=== PATIENT | female | born 1970 | race Caucasian/White ===

== ENCOUNTER 2023-02-17 13:05 | Outpatient (OUT) | payer OTHER, SELFPAY ==
--- NOTE | 2023-02-17 13:09 | XR_ITS ---
The [address] [address] Patient Name: KIRT REYNA MRN: [id number] date: 1970 Sex: F Assigned Patient Location: [facility] Current Patient Location: [facility] Accession/Order Number: [id number] Exam Date: 02/17/2023 13:17 Report Date: 02/17/2023 13:56 At the request of: NON-STAFF PHYSICIAN Procedure: XR DEXA axial skeleton EXAMINATION: XR DEXA axial skeleton HISTORY: Z13.820 COMPARISON: No relevant comparison available. TECHNIQUE: Dual-energy X-ray absorptiometry (DXA) was performed. FINDINGS: SPINE ANALYSIS: Average bone mineral density is 1.109 g/cm2. T-score (standard deviation relative to young adult mean): -0.8 . HIP ANALYSIS: Lowest bone mineral density is within the left femoral neck, 0.807 g/cm2. T-score (standard deviation relative to young adult mean): -1.7 . XR/XR DEXA axial skeleton IMPRESSION: World Tan Organization Classification: Osteopenia - Moderate Fracture Risk Electronically authenticated by: KRISTI ROOT Date: 02/17/2023 13:56
== END 2023-02-17 13:06 | disposition home or self-care (01) ==
LOC: RAD 13:05
PROVIDERS: PCP Family Medicine
DX: Z13.820 Encounter for screening for osteoporosis (principal); N95.1 Menopausal and female climacteric states; C20 Malignant neoplasm of rectum; M85.852 Other specified disorders of bone density and structure, left thigh
CPT/HCPCS: 77080

== ENCOUNTER 2023-03-25 16:46 | Outpatient (OUT) | payer OTHER, SELFPAY ==
[2023-03-25 17:15] LABS: Basophils Percent Auto 0.2 % (0.2-2.0); Eosinophils Absolute Auto 0.1 10^3/uL (0.0-0.7); Eosinophils Percent Auto 2.2 % (0.9-7.0); Hematocrit 37.3 % (36.0-48.0); Hemoglobin 12.6 g/dL (12.0-16.0); Immature Granulocytes Abs Auto 0.01 10^3/uL (0.00-0.03); Immature Granulocytes Pct Auto 0.2 % (0.0-0.5); Lymphocytes Absolute Auto 0.7 10^3/uL (1.2-3.8); Lymphocytes Percent Auto 15.7 % (20.5-60.0); Mean Corpuscular HGB Conc 33.8 g/dL (29.9-35.2); Mean Corpuscular Hemoglobin 29.8 pg (26.7-34.0); Mean Corpuscular Volume 88.2 fL (81.0-99.0); Mean Platelet Volume 9.8 fL (9.5-13.5); Monocytes Absolute Auto 0.4 10^3/uL (0.3-0.8); Monocytes Percent Auto 9.2 % (1.7-12.0); Neutrophils Absolute Auto 3.2 10^3/uL (1.4-6.5); Neutrophils Percent Auto 72.5 % (43.0-75.0); Platelet Count 230 10^3/uL (150-450); Red Blood Count 4.23 10^6/uL (4.20-5.40); Red Cell Distribution Width 13.1 % (11.0-15.0); White Blood Count 4.5 10^3/uL (4.0-11.0)
[2023-03-25 17:20] LABS: Estimated Average Glucose 111 mg/dL; Glycohemoglobin A1C 5.5 % (4.5-6.2)
[2023-03-25 17:42] LABS: Alanine Aminotransferase 27 U/L (14-59); Albumin Level 3.9 g/dL (3.4-5.0); Alkaline Phosphatase 95 U/L (46-116); Anion Gap 11.3; Aspartate Amino Transferase 14 U/L (15-37); Bilirubin Total 0.3 mg/dL (0.2-1.0); Calcium 8.9 mg/dL (8.5-10.1); Carbon Dioxide 29.5 mmol/L (21.0-32.0); Chloride 102 mmol/L (98-107); Chol HDL Ratio 3.4; Cholesterol 218 mg/dL (<=200); Estimated GFR (African America >60 (>=60); Estimated GFR (Non-African Ame >60 (>=60); Free T3 3.22 pg/mL (2.18-3.98); Glucose 114 mg/dL (74-106); HDL Cholesterol 65 mg/dL (40-60); Potassium 3.8 mmol/L (3.5-5.1); Sodium 139 mmol/L (136-145); Total Protein 7.9 g/dL (6.4-8.2); Triglycerides 212 mg/dL (<=150); VLDL CHOLESTEROL 42.4 mg/dL
[2023-03-27 12:12] LABS: Insulin 23.3 uIU/mL (2.6-24.9)
== END 2023-03-25 16:47 | disposition home or self-care (01) ==
PROVIDERS: PCP Family Medicine; Visit Provider Family Medicine
DX: Z00.00 Encounter for general adult medical examination without abnormal findings (principal); E55.9 Vitamin D deficiency, unspecified
CPT/HCPCS: 36415; 80053; 80061; 82306; 83036; 83525; 83540; 84436; 84443; 84481; 85025

== ENCOUNTER 2023-04-08 16:40 | Outpatient (OUT) | payer OTHER, SELFPAY ==
--- NOTE | 2023-04-08 16:43 | MM_ITS ---
Patient: KIRT REYNA Exam Date: 04/08/2023 : 1970 Gender:F Ordering : DR Valente Scales . Admission #: [id number] Family : DR KRISTI PEREZ Order #: [id number] CLICK HERE TO VIEW EXAM RADIOLOGY REPORT PROCEDURE: MM TOMOSYNTHESIS SCREENING BI COMPARISON: MG MAMM SCREEN CARL W CAD, 07/29/2017. INDICATIONS: Z12.31 Calculator Name NCI Breast Cancer Risk Assessment Tool 5 Year Breast Cancer Risk 1.30% Lifetime Breast Cancer Risk 9.30% Personal Breast Cancer No Personal Ovarian Cancer No Treatments None Family Cancers None LOCATION: [facility] BREAST COMPOSITION: Extremely dense, which lowers the sensitivity of mammography. FINDINGS: DIAGNOSTIC CATEGORY 0--INCOMPLETE: NEED ADDITIONAL IMAGING EVALUATION. The breasts are stable in size and overall fibroglandular configuration.Scattered benign-appearing calcifications are present. Scattered benign-appearing lymph nodes are present. RIGHT BREAST: No significant suspicious finding. Several well-circumscribed nodules are noted in the upper outer quadrant, difficult to see prior non tomographic images. Ultrasound follow-up recommended LEFT BREAST: New area of focal asymmetry upper outer quadrant with microcalcifications, posterior breast. Spot magnification and ultrasound follow-up recommended. RECOMMENDATIONS: ADDITIONAL MAMMOGRAPHIC VIEWS REQUIRED: LEFT BREAST - spot magnification ULTRASOUND: BILATERAL BREASTS PLEASE NOTE: A NORMAL MAMMOGRAM DOES NOT EXCLUDE THE POSSIBILITY OF BREAST CANCER. A CLINICALLY SUSPICIOUS PALPABLE LUMP SHOULD BE BIOPSIED. Dictated by: Edgar Machuca MD on 04/09/2023 at 13:01 Approved by: Edgar Machuca MD on 04/09/2023 at 13:05
== END 2023-04-08 16:41 | disposition home or self-care (01) ==
LOC: MAMMO 16:40
PROVIDERS: PCP Family Medicine; Visit Provider Family Medicine
DX: Z12.31 Encounter for screening mammogram for malignant neoplasm of breast (principal); R92.0 Mammographic microcalcification found on diagnostic imaging of breast
CPT/HCPCS: 77063; 77067

== ENCOUNTER 2023-04-30 08:21 | Outpatient (OUT) | payer OTHER, SELFPAY ==
--- NOTE | 2023-04-30 08:25 | MM_ITS ---
Patient: KIRT REYNA Exam Date: 04/30/2023 : 1970 Gender:F Ordering : DR Valente Scales . Admission #: [id number] Family : Order #: [id number] CLICK HERE TO VIEW EXAM RADIOLOGY REPORT PROCEDURE: MM DIAGNOSTIC MAMMO UNILAT LT, 04/30/2023, 08:36 US BREAST BI LIMITED, 04/30/2023, 08:56 COMPARISON: MM TOMOSYNTHESIS SCREENING BI, 04/08/2023. INDICATIONS: Abnormal Mammogram Bilateral Calculator Name NCI Breast Cancer Risk Assessment Tool 5 Year Breast Cancer Risk 1.30% Lifetime Breast Cancer Risk 9.30% Personal Breast Cancer No Personal Ovarian Cancer No Treatments None Family Cancers None LOCATION: [facility] BREAST COMPOSITION: Extremely dense, which lowers the sensitivity of mammography. FINDINGS: DIAGNOSTIC CATEGORY 3--PROBABLY BENIGN FINDING. THE FOLLOWING FINDING(S) HAS A HIGH PROBABILITY OF A BENIGN ETIOLOGY: Ultrasound of the right breast demonstrates 2 focal oval areas of hypoechogenicity without definitive color flow. At the 10 o'clock position is a 1.0 x 0.4 x 0.8 cm lesion. At the 10 o'clock position is a 2nd oval hypodense lesion measuring 2.7 x 2.7 x 2.8 mm. These correspond to the mammographic abnormalities and complex cysts are favored. As there are no prior comparisons short interval follow-up right diagnostic mammogram and ultrasound in 6 months is recommended Three spot magnification views of the left breast demonstrate compression of the density in the upper outer quadrant with geographic microcalcifications, nonspecific. No ultrasound abnormality. No further evaluation is recommended RECOMMENDATIONS: SHORT TERM FOLLOW-UP DIAGNOSTIC MAMMOGRAM RIGHT BREAST IN 6 MONTHS. SHORT TERM FOLLOW-UP ULTRASOUND RIGHT BREAST IN 6 MONTHS. PLEASE NOTE: A NORMAL MAMMOGRAM DOES NOT EXCLUDE THE POSSIBILITY OF BREAST CANCER. A CLINICALLY SUSPICIOUS PALPABLE LUMP SHOULD BE BIOPSIED. Dictated by: Edgar Machuca MD on 04/30/2023 at 09:27 Approved by: Edgar Machuca MD on 04/30/2023 at 09:30
== END 2023-04-30 08:22 | disposition home or self-care (01) ==
LOC: MAMMO 08:22
PROVIDERS: PCP Family Medicine; Visit Provider Family Medicine
DX: R92.8 Other abnormal and inconclusive findings on diagnostic imaging of breast (principal); N64.9 Disorder of breast, unspecified
CPT/HCPCS: 76642; 77065

== ENCOUNTER 2023-08-19 16:34 | Outpatient (OUT) | payer OTHER, SELFPAY ==
--- NOTE | 2023-08-19 17:00 | XR_ITS ---
The [address] [address] Patient Name: KIRT REYNA MRN: [id number] date: 1970 Sex: F Assigned Patient Location: [facility] Current Patient Location: Accession/Order Number: [id number] Exam Date: 08/19/2023 16:49 Report Date: 08/20/2023 09:17 At the request of: SONDRA LIU Procedure: XR wrist CARL min 3V EXAMINATION: XR wrist CARL min 3V HISTORY: Arthralgia M25.50 COMPARISON: No relevant comparison available. FINDINGS: RIGHT FINDINGS: BONES: No acute fracture or dislocation. Degenerative changes with joint space narrowing most significant first carpometacarpal joint SOFT TISSUES: Negative. No visible soft tissue swelling. OTHER: Negative. LEFT FINDINGS: BONES: No acute fracture or dislocation. Degenerative changes with joint space narrowing most significant first carpometacarpal joint SOFT TISSUES: Negative. No visible soft tissue swelling. OTHER: Negative. XR/XR wrist CARL min 3V IMPRESSION: Mild degenerative changes, no acute abnormality Electronically authenticated by: PHIL LIU Date: 08/20/2023 09:17
--- NOTE | 2023-08-19 17:00 | XR_ITS ---
The [place] [id number] Patient Name: KIRT REYNA MRN: [id number] date: 1970 Sex: F Assigned Patient Location: [facility] Current Patient Location: [facility] Accession/Order Number: [id number] Exam Date: 08/19/2023 16:49 Report Date: 08/20/2023 09:20 At the request of: SONDRA LIU Procedure: XR lumbar spine 2-3V EXAMINATION: XR lumbar spine 2-3V HISTORY: arthralgia M25.50 COMPARISON: No relevant comparison available. FINDINGS: BONES: 11 mm anterolisthesis of L5 in relation S1. No acute fracture. Mild degenerative spondylosis and facet osteoarthropathy DISC SPACES: Normal. No significant disc height narrowing, subluxation, or endplate abnormality. PARASPINOUS: Negative. No paraspinous abnormality is seen. OTHER: Negative. XR/XR lumbar spine 2-3V IMPRESSION: 11 mm anterolisthesis of L5 on S1 Electronically authenticated by: PHIL LIU Date: 08/20/2023 09:20
--- NOTE | 2023-08-19 17:00 | XR_ITS ---
The [address] [address] Patient Name: KIRT REYNA MRN: [id number] date: 1970 Sex: F Assigned Patient Location: [facility] Current Patient Location: [facility] Accession/Order Number: [id number] Exam Date: 08/19/2023 16:49 Report Date: 08/20/2023 09:22 At the request of: SONDRA LIU Procedure: XR hip CARL EXAMINATION: XR hip CARL HISTORY: arthralgia M25.50 COMPARISON: No relevant comparison available. FINDINGS: RIGHT FINDINGS: BONES: No acute fracture or dislocation. Minimal degenerative changes with marginal osteophyte formation SOFT TISSUES: Negative. No visible soft tissue swelling. OTHER: Negative. LEFT FINDINGS: BONES: No acute fracture or dislocation. Minimal degenerative changes with marginal osteophyte formation SOFT TISSUES: Negative. No visible soft tissue swelling. OTHER: Negative. XR/XR hip CARL IMPRESSION: RIGHT CONCLUSION: Minimal degenerative changes LEFT CONCLUSION: Minimal degenerative changes Electronically authenticated by: PHIL LIU Date: 08/20/2023 09:22
--- NOTE | 2023-08-19 17:00 | XR_ITS ---
The [address] [address] Patient Name: KIRT REYNA MRN: [id number] date: 1970 Sex: F Assigned Patient Location: [facility] Current Patient Location: [facility] Accession/Order Number: [id number] Exam Date: 08/19/2023 16:49 Report Date: 08/20/2023 09:19 At the request of: SONDRA LIU Procedure: XR clavicle BI PROCEDURE: XR clavicle BI COMPARISON: None. HISTORY: clavicale enlargement M89.319 FINDINGS: BONES:No fracture, acute abnormality, or significant arthropathy of the right or left clavicle. SOFT TISSUES:Negative. No visible soft tissue swelling. EFFUSION:None visible. OTHER: BB marker left cranial mid clavicle indicates a palpable mass. No corresponding abnormality on plain x-ray XR/XR clavicle BI IMPRESSION: No abnormality of the clavicles Electronically authenticated by: PHIL LIU Date: 08/20/2023 09:19
== END 2023-08-19 16:35 | disposition home or self-care (01) ==
LOC: RAD 16:36
PROVIDERS: PCP Family Medicine; Visit Provider Family Medicine
DX: M89.319 Hypertrophy of bone, unspecified shoulder (principal); M25.50 Pain in unspecified joint
CPT/HCPCS: 72100; 73000; 73110; 73522

== ENCOUNTER 2023-10-22 08:06 | Outpatient (OUT) | payer OTHER, SELFPAY ==
--- NOTE | 2023-10-22 | US_ITS ---
Patient Name: KIRT REYNA MR#: [id number] : 1970 Exam Date: 10/22/2023 Ordering Doctor: DR Valente Scales . RADIOLOGY REPORT PROCEDURE: MM TOMOSYNTHESIS DIAGNOSTIC BI, 10/22/2023, 07:13 US BREAST RT LIMITED, 10/22/2023, 08:29 COMPARISON: US BREAST BI LIMITED, 04/30/2023. MM TOMOSYNTHESIS SCREENING BI, 04/08/2023. MM DIAGNOSTIC MAMMO UNILAT LT, 04/30/2023. INDICATIONS: Diffuse Cystic Mastopathy Of Unspecified Breast N60.19 Calculator Name NCI Breast Cancer Risk Assessment Tool 5 Year Breast Cancer Risk 1.30% Lifetime Breast Cancer Risk 9.30% Personal Breast Cancer No Personal Ovarian Cancer No Treatments None Family Cancers None LOCATION: [facility] BREAST COMPOSITION: Extremely dense, which lowers the sensitivity of mammography. FINDINGS: DIAGNOSTIC CATEGORY 2--BENIGN FINDING. NO CHANGE FROM COMPARISON. Scattered benign-appearing nodules are present. Scattered benign-appearing calcifications are present. Scattered benign-appearing lymph nodes are present. RIGHT BREAST: No significant suspicious finding. LEFT BREAST: Stable nodules. Ultrasound demonstrates 2 unchanged oval areas of hypoechogenicity without color flow measuring 1.0 and 0.3 cm in size. Given the lack of change from the prior exam, I favor complex cysts. RECOMMENDATIONS: ROUTINE MAMMOGRAM AND CLINICAL EVALUATION IN 12 MONTHS. Active recommendations from prior exams: SHORT TERM FOLLOW-UP DIAGNOSTIC MAMMOGRAM RIGHT BREAST IN [#MONTHS] MONTHS. Due on 10/30/2023. SHORT TERM FOLLOW-UP ULTRASOUND RIGHT BREAST IN [#MONTHS] MONTHS. Due on 10/30/2023. PLEASE NOTE: A NORMAL MAMMOGRAM DOES NOT EXCLUDE THE POSSIBILITY OF BREAST CANCER. A CLINICALLY SUSPICIOUS PALPABLE LUMP SHOULD BE BIOPSIED. Dictated by: Edgar Machuca MD on 10/22/2023 at 08:47 Approved by: Edgar Machuca MD on 10/22/2023 at 08:51
--- NOTE | 2023-10-22 08:08 | MM_ITS ---
Patient Name: KIRT REYNA MR#: [id number] : 1970 Exam Date: 10/22/2023 Ordering Doctor: DR Valente Scales . RADIOLOGY REPORT PROCEDURE: MM TOMOSYNTHESIS DIAGNOSTIC BI, 10/22/2023, 07:13 US BREAST RT LIMITED, 10/22/2023, 08:29 COMPARISON: US BREAST BI LIMITED, 04/30/2023. MM TOMOSYNTHESIS SCREENING BI, 04/08/2023. MM DIAGNOSTIC MAMMO UNILAT LT, 04/30/2023. INDICATIONS: Diffuse Cystic Mastopathy Of Unspecified Breast N60.19 Calculator Name NCI Breast Cancer Risk Assessment Tool 5 Year Breast Cancer Risk 1.30% Lifetime Breast Cancer Risk 9.30% Personal Breast Cancer No Personal Ovarian Cancer No Treatments None Family Cancers None LOCATION: [facility] BREAST COMPOSITION: Extremely dense, which lowers the sensitivity of mammography. FINDINGS: DIAGNOSTIC CATEGORY 2--BENIGN FINDING. NO CHANGE FROM COMPARISON. Scattered benign-appearing nodules are present. Scattered benign-appearing calcifications are present. Scattered benign-appearing lymph nodes are present. RIGHT BREAST: No significant suspicious finding. LEFT BREAST: Stable nodules. Ultrasound demonstrates 2 unchanged oval areas of hypoechogenicity without color flow measuring 1.0 and 0.3 cm in size. Given the lack of change from the prior exam, I favor complex cysts. RECOMMENDATIONS: ROUTINE MAMMOGRAM AND CLINICAL EVALUATION IN 12 MONTHS. Active recommendations from prior exams: SHORT TERM FOLLOW-UP DIAGNOSTIC MAMMOGRAM RIGHT BREAST IN [#MONTHS] MONTHS. Due on 10/30/2023. SHORT TERM FOLLOW-UP ULTRASOUND RIGHT BREAST IN [#MONTHS] MONTHS. Due on 10/30/2023. PLEASE NOTE: A NORMAL MAMMOGRAM DOES NOT EXCLUDE THE POSSIBILITY OF BREAST CANCER. A CLINICALLY SUSPICIOUS PALPABLE LUMP SHOULD BE BIOPSIED. Dictated by: Edgar Machuca MD on 10/22/2023 at 08:47 Approved by: Edgar Machuca MD on 10/22/2023 at 08:51
== END 2023-10-22 08:07 | disposition home or self-care (01) ==
LOC: MAMMO 08:06
PROVIDERS: PCP Family Medicine; Visit Provider Family Medicine
DX: N60.19 Diffuse cystic mastopathy of unspecified breast (principal)
CPT/HCPCS: 76642; 77066; G0279

== ENCOUNTER 2024-01-06 19:29 | Outpatient (REF) | payer OTHER, SELFPAY ==
--- OUTSIDE RECORDS SUMMARY | 2024-01-06 19:35 | XMS_ITS | CCD ---
Author Organization [facility]ini[facility] Care Team Providers Care Ferry Hand Name Role Phone Sondra Liu Primary Care Physician Sondra Liu MD Primary Care Provider [phone] PHIL DOUGHERTY Referring Unavailable SONDRA LIU Primary Care Unavailable Paco Bonds MD Unavailable Kojo GRADER GREEN MEAT.LIVESTOCK BREEDER, Gerardo Unavailable Ventura RN, Leandra Unavailable [phone] Toribio Michaud MD Unavailable Sondra Liu MD Primary Care Provider [phone] Paco Bonds MD Unavailable [phone] Kojo [employer] ME[employer].LIVESTOCK BREEDER, Gerardo Unavailable Ventura PINTO, Leandra Unavailable [phone] Jaswant SERNA, Toribio Unavailable RODERICK, DR HAIDER Admitting Unavailable NILL, DR HAIDER Attending Unavailable NILL, DR HAIDER Consulting Unavailable HOY, DR AMARO Primary Care Unavailable LIVE UP Consulting Unavailable KATHY AGUILAR Consulting Unavailable NILL, DR HAIDER Attending Unavailable NILL, DR HAIDER Admitting Unavailable FARAZY, DR AMARO Primary Care Unavailable NILL, DR HAIDER Attending Unavailable NILL, DR HAIDER Admitting Unavailable NOE, DR AMARO Primary Care Unavailable NOE, DR AMARO Admitting Unavailable NOE, DR AMARO Primary Care Unavailable NOE, DR AMARO Attending Unavailable TORIBIO MICHAUD Admitting Unavailable TORIBIO MICHAUD Attending Unavailable DR SONDRA LIU Primary Care Unavailable NOE, DR AMARO Admitting Unavailable NOE, DR AMARO Primary Care Unavailable NOE, DR AMARO Consulting Unavailable NOE, DR AMARO Attending Unavailable NOE, DR AMARO Admitting Unavailable NOE, DR AMARO Primary Care Unavailable NOE, DR AMARO Consulting Unavailable HOY, DR AMARO Attending Unavailable WEST, DR PHIL Johnston Consulting Unavailable ZIEBER, DR KRISTI Cassidy Consulting Unavailable NILL, DR HAIDER Attending Unavailable NILL, DR HAIDER Admitting Unavailable NILL, DR HAIDER Consulting Unavailable NOE, DR AMARO Primary Care Unavailable Noe, Sondra Referring Unavailable NILL, Vitaly Cassidy Attending Unavailable NILL, Vitaly Cassidy Attending Unavailable NILL, Vitaly Cassidy Attending Unavailable HOY, SONDRA M Primary Care Unavailable JASWANT, TORIBIO Referring Unavailable Ventura RN, Leandra Unavailable [phone] JASWANT, TORIBIO Referring Unavailable HOY, SONDRA M Primary Care Unavailable JASWANT, TORIBIO Referring Unavailable HOY, SONDRA M Primary Care Unavailable Noe SERNA, Sondra Ken Primary Care Provider [phone] HOY, SONDRA M Primary Care Unavailable VAMSHI, PACO Attending Unavailable ABHYBRITNI, PACO Referring Unavailable JASWANT, TORIBIO Referring Unavailable HOY, SONDRA M Primary Care Unavailable PHIL DOUGHERTY Attending Unavailable HOY, SONDRA M Primary Care Unavailable PHIL DOUGHERTY Referring Unavailable HOY, SONDRA M Primary Care Unavailable ABHYPETERSONAR, PACO Attending Unavailable ABHYANKAR, PACO Referring Unavailable HOY, SONDRA M Primary Care Unavailable ABNOLAN, PACO Referring Unavailable HOY, SONDRA M Primary Care Unavailable PHIL DOUGHERTY Attending Unavailable HOY, SONDRA M Primary Care Unavailable JASWANT, TORIBIO Attending Unavailable HOY, SONDRA M Primary Care Unavailable PHIL DOUGHERTY Attending Unavailable HOY, SONDRA M Primary Care Unavailable PHIL DOUGHERTY Attending Unavailable HOY, SONDRA M Primary Care Unavailable Allergies Allergy Classification Reported Allergen(s) Allergy Type Date of Onset Reaction(s) Facility Penicillins (antibiotic) (1 source) Penicillin; Translations: [PENICILLIN G] Drug Allergy 4 [facility] Repository Sulfonamides (antibiotic) (1 source) Sulfonamides (Antibiotic); Translations: [SULFA (SULFONAMIDE ANTIBIOTICS)] Drug Allergy 4 [facility] Repository (2 sources) Amoxicillin; Translations: [amoxicillin] Drug Allergy [place] (disorder) [facility] [place] (2 sources) Sulfonamides (Antibiotic); Translations: [sulfa drugs] Drug allergy [facility] [place] (20 sources) Penicillin G; Translations: [PENICILLIN G] Drug Allergy 4 Unknown [facility] (20 sources) Sulfonamides (Antibiotic); Translations: [SULFA (SULFONAMIDE ANTIBIOTICS)] Drug Allergy 4 Unknown [facility] (2 sources) Penicillins Drug allergy (disorder) 3 [facility] Repository (2 sources) Sulfonamides (Antibiotic) Drug allergy (disorder) 3 [facility] Repository Medications Current Medications Medication Drug Class(es) Dates Sig (Normalized) Sig (Original) Acetaminophen / diphenhydrAMINE (20 sources) Histamine-1 Receptor Antagonist acetaminophen/diphen hydramine (TYLENOL PM EXTRA STRENGTH ORAL) Take 500 mg by mouth as needed. 0 Active Comment on above: Take 500 mg by mouth as needed. Calcium (9 sources) Phosphate Binder, Calcium CALCIUM ORAL Take by mouth once daily. 0 Active Comment on above: Take by mouth once d aily. cholecalciferol, vitamin D3, (VITAMIN D3 ORAL) (9 sources) cholecalciferol, vitamin D3, (VITAMIN D3 ORAL) Take by mouth once daily. 0 Active Comment on above: Take by mouth once d aily. fludrocortisone acetate 0.1 mg oral tablet (20 sources) Start: 03-05-2022 take 0.5 tablet by mouth twice daily fludrocortisone (FLORINEF) 0.1 mg tablet TAKE 0.5 TABLET BY MOUTH TWICE A DAY 0 03/05/2022 Active Start: 02-15-2022 take 0.05 mg by mout h twice daily fludrocortisone 0.1 mg Tab 0.05 mg = 0.5 tab(s), Oral, BID, Refills(s) 0 Start Date: 02/15/22 Status: Ordered Comment on above: TAKE 0.5 TABLET BY M OUTH TWICE A DAY hydrocortisone acetate 0.0055 mg/mg / lidocaine hydrochloride 0.028 mg/mg rectal gel (20 sources) Antiarrhythmic, Corticosteroid, Amide Local Anesthetic Start: 06-28-20 Lidocaine-Hydrocorti sone-Aloe 2.8-0.55 % gel Use 1 Applicator by RECTAL route twice daily as needed. 100 g 0 06/28/2022 Active Comment on above: Use 1 Applicator by RECTAL route twice daily as needed. Multi Vitamins oral tablet (1 source) Start: 02-21-20 take 1 tablet by mouth once daily Multi Vitamins oral tablet 1 tab(s), Oral, Daily, Refill(s) 0 Start Date: 02/20/22 Status: Ordered multivit-min/ferrous fumarate (MULTI VITAMIN ORAL) (9 sources) multivit-min/teresita ashli fumarate (MULTI VITAMIN ORAL) Take by mouth once daily. 0 Active Comment on above: Take by mouth once d aily. multivitamin tablet (20 sources) take 1 tablet by mouth once daily multivitamin tablet Take 1 tablet by mouth once daily. 0 Active Comment on above: Take 1 tablet by hans th once daily. ondansetron 8 mg oral tablet (20 sources) Serotonin-3 Receptor Antagonist Start: 05-23-20 take 1 tablet by mouth every eight hours as needed for nausea and vomiting ondansetron (ZOFRAN) 8 mg tablet TAKE 1 TABLET BY MOUTH EVERY 8 HOURS NEEDED FOR NAUSEA AND VOMITING 90 tablet 1 08/14/2022 Active Comment on above: Take 1 tablet by hans th every 8 hours as needed for nausea/vomiting. TAKE 1 TABLET BY HANS TH EVERY 8 HOURS NEEDED FOR NAUSEA AND VOMITING Completed/Discontinued Medications Medication Drug Class(es) Dates Sig (Normalized) Sig (Original) acetaminophen 325 mg / oxyCODONE hydrochloride 5 mg oral tablet (20 sources) Opioid Agonist Start: 06-27-2022 End: 10-28-2022 oxyCODONE-acetamin ophen (PERCOCET) 5-325 mg tablet Indications: Anal cancer (HCC) Take one tablet every six hours as needed for pain. May alternate with NSAIDs (Motrin, Alleve, etc). Take necessary precautions to avoid constipation. 30 tablet 0 06/27/2022 10/28/2022 Discontinued Comment on above: Take one tablet ever y six hours as needed for pain. May alternate with NSAIDs (Motrin, Alleve, etc). Take necessary precautions to avoid constipation. capecitabine 500 mg oral tablet (20 sources) Nucleoside Metabolic Inhibitor Start: 06-18-2022 End: 10-28-2022 take 2 tablets by mouth twice daily at mealtime capecitabine (XELODA) 500 mg tablet Indications: Anal cancer (HCC) Take 2 tablet by mouth , with food, twice daily only on days of radiation (M-F) each week 20 tablet 4 06/18/2022 10/28/2022 Discontinued Start: 05-16-2022 End: 06-18-2022 take 3 tablets by mouth twice daily capecitabine (XELODA) 500 mg tablet Indications: Anal cancer (HCC) Take 3 tablets (1,500 mg) by mouth twice daily. Only on days of radiation (M-F) each week 30 tablet 5 05/16/2022 06/18/2022 Discontinued Comment on above: Take 3 tablets (1,50 0 mg) by mouth twice daily. Only on days of radiation (M-F) each week Take 2 tablet by hans th , with food, twice daily only on days of radiation (M-F) each week diphenhydrAMINE hydrochloride 2.5 mg/ml oral solution (20 sources) Histamine-1 Receptor Antagonist Start: 06-24-20 End: 10-29-19 23 diphenhydrAMINE (BENADRYL) 12.5 mg/5 mL liquid diphenhydrAMINE 12.5 mg/5 mL lidocaine visc 2% MAALOX 200-200-20 mg/5 mL nystatin prednisoLONE 15 mg/5 mL oral liquid 1:1:1:1:1 (CPD) (20 sources) Start: 06-24-20 End: 10-29-19 23 take 5 mL by mouth every six hours as needed diphenhydrAMINE 12.5 mg/5 mL lidocaine visc 2% MAALOX 200-200-20 mg/5 mL nystatin prednisoLONE 15 mg/5 mL oral liquid 1:1:1:1:1 (CPD) Swish and swallow 5 mL by mouth every 6 hours as needed. 300 mL 1 06/24/2022 10/28/2022 Discontinued Start: 06-24-2022 take 5 mL by mouth e very six hours as needed diphenhydrAMINE 12.5 mg/5 mL lidocaine visc 2% MAALOX 200-200-20 mg/5 mL nystatin prednisoLONE 15 mg/5 mL oral liquid 1:1:1:1:1 (CPD) Swish and swallow 5 mL by mouth every 6 hours as needed. 300 mL 1 06/24/2022 Active Comment on above: Swish and swallow 5 mL by mouth every 6 hours as needed. enteric contrast (will be provided with radiology test) (20 sources) Start: 10-27-2023 End: 10-28-2023 enteric contrast (will be provided with radiology test) For CT ABD W IVCON order Administer, As Directed One Time Only, via Oral, Rectal, both Oral and Rectal, Enteric Tube, Stoma or Indwelling Catheter, Enteric Contrast as designated per enteric contrast guidelines 1 Each 0 10/27/2023 10/28/2023 Start: 10-27-2023 End: 10-28-2023 enteric contrast (will be pr ovided with radiology test) MRI RECTUM WO/W. Administer, As Directed One Time Only, via Oral, Rectal, both Oral and Rectal, Enteric Tube, Stoma or Indwelling Catheter, Enteric Contrast as designated per enteric contrast guidelines 1 Each 0 10/27/2023 10/28/2023 Start: 09-12-2023 End: 09-13-2023 enteric contrast (will be pr ovided with radiology test) MRI RECTUM WO/W. Administer, As Directed One Time Only, via Oral, Rectal, both Oral and Rectal, Enteric Tube, Stoma or Indwelling Catheter, Enteric Contrast as designated per enteric contrast guidelines 1 Each 0 09/12/2023 09/13/2023 Start: 11-05-2022 End: 11-06-2022 enteric contrast (will be pr ovided with radiology test) MRI RECTUM WO/W. Administer, As Directed One Time Only, via Oral, Rectal, both Oral and Rectal, Enteric Tube, Stoma or Indwelling Catheter, Enteric Contrast as designated per enteric contrast guidelines 1 Each 0 11/05/2022 11/06/2022 Active Start: 09-04-2022 End: 09-05-2022 enteric contrast (will be pr ovided with radiology test) MRI RECTUM WO/W. Administer, As Directed One Time Only, via Oral, Rectal, both Oral and Rectal, Enteric Tube, Stoma or Indwelling Catheter, Enteric Contrast as designated per enteric contrast guidelines 1 Each 0 09/04/2022 09/05/2022 Start: 07-17-2022 End: 07-18-2022 enteric contrast (will be pr ovided with radiology test) For CT CHESTABD/PEL W IVCON Routine order Administer, As Directed One Time Only, via Oral, Rectal, both Oral and Rectal, Enteric Tube, Stoma or Indwelling Catheter, Enteric Contrast as designated per enteric contrast guidelines 1 Each 0 07/17/2022 07/18/2022 Start: 07-17-2022 End: 07-18-2022 enteric contrast (will be pr ovided with radiology test) For CT CHESTABD/PEL W IVCON Routine order Administer, As Directed One Time Only, via Oral, Rectal, both Oral and Rectal, Enteric Tube, Stoma or Indwelling Catheter, Enteric Contrast as designated per enteric contrast guidelines 1 Each 0 07/17/2022 07/18/2022 Active Start: 05-02-2022 End: 06-25-2022 enteric contrast (will be pr ovided with radiology test) Indications: Anal cancer (HCC) MRI RECTUM WO/W. Administer, As Directed One Time Only, via Oral, Rectal, both Oral and Rectal, Enteric Tube, Stoma or Indwelling Catheter, Enteric Contrast as designated per enteric contrast guidelines 1 Each 0 05/02/2022 06/25/2022 Discontinued (Course of therapy completed) Start: 05-02-[address] (will be provided with radiology test) Indications: Anal cancer (HCC) MRI RECTUM WO/W. Administer, As Directed One Time Only, via Oral, Rectal, both Oral and Rectal, Enteric Tube, Stoma or Indwelling Catheter, Enteric Contrast as designated per enteric contrast guidelines 1 Each 0 05/02/2022 Active Start: 05-02-2022 End: 05-03-2022 enteric contrast (will be pr ovided with radiology test) Indications: Anal cancer (HCC) For CT Chest Abdomen W IVCON order Administer, As Directed One Time Only, via Oral, Rectal, both Oral and Rectal, Enteric Tube, Stoma or Indwelling Catheter, Enteric Contrast as designated per enteric contrast guidelines 1 Each 0 05/02/2022 05/03/2022 Active Comment on above: MRI RECTUM WO/W. Adm inister, As Directed One Time Only, via Oral, Rectal, both Oral and Rectal, Enteric Tube, Stoma or Indwelling Catheter, Enteric Contrast as designated per enteric contrast guidelines For CT Chest Abdomen W IVCON order Administer, As Directed One Time Only, via Oral, Rectal, both Oral and Rectal, Enteric Tube, Stoma or Indwelling Catheter, Enteric Contrast as designated per enteric contrast guidelines For CT CHESTABD/PEL W IVCON Routine order Administer, As Directed One Time Only, via Oral, Rectal, both Oral and Rectal, Enteric Tube, Stoma or Indwelling Catheter, Enteric Contrast as designated per enteric contrast guidelines iv contrast (will be provided with radiology test) (20 sources) Start: 10-27-2023 End: 10-28-2023 iv contrast (will be provided with radiology test) CT Chest W -Inject, intravenously, once for 1 dose.No IV access, insert saline lock prior to the beginning of sedation, infusion, injection of imaging exam. Discontinue saline lock post exam. If Pt. has a central line or IVAD, may access for administration according to line specific nursing protocol. Once exam is complete flush line and de-access according to line specific nursing protocol in the CT contrast administration guidelines link. 1 Each 0 10/27/2023 10/28/2023 Start: 10-27-2023 End: 10-28-2023 iv contrast (will be provide d with radiology test) CT ABD W -Inject, intravenously, once for 1 dose.No IV access, insert saline lock prior to the beginning of sedation, infusion, injection of imaging exam. Discontinue saline lock post exam. If Pt. has a central line or IVAD, may access for administration according to line specific nursing protocol. Once exam is complete flush line and de-access according to line specific nursing protocol in the CT contrast administration guidelines link. 1 Each 0 10/27/2023 10/28/2023 Start: 10-27-2023 End: 10-28-2023 iv contrast (will be provide d with radiology test) MRI Rectum Inject, intravenously, once for 1 dose. No IV access, insert saline lock prior to the beginning of sedation, infusion, injection of imaging exam. Discontinue saline lock post exam. If Pt has a central line or IVAD, may access for administration according to line specific nursing protocol. Once exam is complete flush line and de-access according to line specific nursing protocol in the MR contrast administration guidelines link. 1 Each 0 10/27/2023 10/28/2023 Start: 09-12-2023 End: 09-13-2023 iv contrast (will be provide d with radiology test) MRI ABD/PEL Inject, intravenously, once for 1 dose. No IV access, insert saline lock prior to the beginning of sedation, infusion, injection of imaging exam. Discontinue saline lock post exam. If Pt. has a central line or IVAD, may access for administration according to line specific nursing protocol. Once exam is complete flush line and de-access according to line specific nursing protocol in the MR contrast administration guidelines link. 1 Each 0 09/12/2023 09/13/2023 Start: 11-05-2022 End: 11-06-2022 iv contrast (will be provide d with radiology test) MRI Rectum Inject, intravenously, once for 1 dose. No IV access, insert saline lock prior to the beginning of sedation, infusion, injection of imaging exam. Discontinue saline lock post exam. If Pt has a central line or IVAD, may access for administration according to line specific nursing protocol. Once exam is complete flush line and de-access according to line specific nursing protocol in the MR contrast administration guidelines link. 1 Each 0 11/05/2022 11/06/2022 Active Start: 09-04-2022 End: 09-05-2022 iv contrast (will be provide d with radiology test) MRI Rectum Inject, intravenously, once for 1 dose. No IV access, insert saline lock prior to the beginning of sedation, infusion, injection of imaging exam. Discontinue saline lock post exam. If Pt has a central line or IVAD, may access for administration according to line specific nursing protocol. Once exam is complete flush line and de-access according to line specific nursing protocol in the MR contrast administration guidelines link. 1 Each 0 09/04/2022 09/05/2022 Start: 07-17-2022 End: 07-18-2022 iv contrast (will be provide d with radiology test) CT Chest ABD/PEL-Inject, intravenously, once for 1 dose.No IV access, insert saline lock prior to the beginning of sedation, infusion, injection of imaging exam. Discontinue saline lock post exam. If Pt. has a central line or IVAD, may access for administration according to line specific nursing protocol. Once exam is complete flush line and de-access according to line specific nursing protocol in the CT contrast administration guidelines link. 1 Each 0 07/17/2022 07/18/2022 Start: 07-17-2022 End: 07-18-2022 iv contrast (will be provide d with radiology test) CT Chest ABD/PEL-Inject, intravenously, once for 1 dose.No IV access, insert saline lock prior to the beginning of sedation, infusion, injection of imaging exam. Discontinue saline lock post exam. If Pt. has a central line or IVAD, may access for administration according to line specific nursing protocol. Once exam is complete flush line and de-access according to line specific nursing protocol in the CT contrast administration guidelines link. 1 Each 0 07/17/2022 07/18/2022 Active Start: 05-02-2022 End: 06-25-2022 iv contrast (will be provide d with radiology test) Indications: Anal cancer (HCC) MRI Rectum Inject, intravenously, once for 1 dose. No IV access, insert saline lock prior to the beginning of sedation, infusion, injection of imaging exam. Discontinue saline lock post exam. If Pt has a central line or IVAD, may access for administration according to line specific nursing protocol. Once exam is complete flush line and de-access according to line specific nursing protocol in the MR contrast administration guidelines link. 1 Each 0 05/02/2022 06/25/2022 Discontinued (Course of therapy completed) Start: 05-02-2022 iv contrast (w ill be provided with radiology test) Indications: Anal cancer (HCC) MRI Rectum Inject, intravenously, once for 1 dose. No IV access, insert saline lock prior to the beginning of sedation, infusion, injection of imaging exam. Discontinue saline lock post exam. If Pt has a central line or IVAD, may access for administration according to line specific nursing protocol. Once exam is complete flush line and de-access according to line specific nursing protocol in the MR contrast administration guidelines link. 1 Each 0 05/02/2022 Active Start: 05-02-2022 End: 05-03-2022 iv contrast (will be provide d with radiology test) Indications: Anal cancer (HCC) CT Chest Abdomen-Inject, intravenously, once for 1 dose.No IV access, insert saline lock prior to the beginning of sedation, infusion, injection of imaging exam. Discontinue saline lock post exam. If Pt. has a central line or IVAD, may access for administration according to line specific nursing protocol. Once exam is complete flush line and de-access according to line specific nursing protocol in the CT contrast administration guidelines link. 1 Each 0 05/02/2022 05/03/2022 Active Comment on above: MRI Rectum Inject, i ntravenously, once for 1 dose. No IV access, insert saline lock prior to the beginning of sedation, infusion, injection of imaging exam. Discontinue saline lock post exam. If Pt has a central line or IVAD, may access for administration according to line specific nursing protocol. Once exam is complete flush line and de-access according to line specific nursing protocol in the MR contrast administration guidelines link. CT Chest Abdomen-Inj ect, intravenously, once for 1 dose.No IV access, insert saline lock prior to the beginning of sedation, infusion, injection of imaging exam. Discontinue saline lock post exam. If Pt. has a central line or IVAD, may access for administration according to line specific nursing protocol. Once exam is complete flush line and de-access according to line specific nursing protocol in the CT contrast administration guidelines link. CT Chest ABD/PEL-Inj ect, intravenously, once for 1 dose.No IV access, insert saline lock prior to the beginning of sedation, infusion, injection of imaging exam. Discontinue saline lock post exam. If Pt. has a central line or IVAD, may access for administration according to line specific nursing protocol. Once exam is complete flush line and de-access according to line specific nursing protocol in the CT contrast administration guidelines link. MRI ABD/PEL Inject, intravenously, once for 1 dose. No IV access, insert saline lock prior to the beginning of sedation, infusion, injection of imaging exam. Discontinue saline lock post exam. If Pt. has a central line or IVAD, may access for administration according to line specific nursing protocol. Once exam is complete flush line and de-access according to line specific nursing protocol in the MR contrast administration guidelines link. lidocaine hydrochloride 0.02 mg/mg topical gel (20 sources) Antiarrhythmic, Amide Local Anesthetic Start: 022 End: 023 lidocaine (XYLOCAINE) 2 % jelly Apply 1-2 times a day to affected area as needed for pain/discomfort. Test in small unaffected area first for reaction. 30 mL 0 06/27/2022 10/28/2022 Discontinued Comment on above: Apply 1-2 times a da y to affected area as needed for pain/discomfort. Test in small unaffected area first for reaction. prochlorperazine 10 mg oral tablet (20 sources) Phenothiazine Start: 022 End: 023 take 1 tablet by mouth every six hours as needed prochlorperazine (COMPAZINE) 10 mg tablet Take 1 tablet by mouth every 6 hours as needed. 100 tablet 1 05/23/2022 10/28/2022 Discontinued Comment on above: Take 1 tablet by hans th every 6 hours as needed. 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-2023 Chronic Cardiac dysrhythmias (20 sources) Postural orthostatic tachycardia syndrome ; Translations: [POTS (postural orthostatic tachycardia syndrome)] Onset: 2 Chronic Conditions associated with dizziness or vertigo (20 sources) Vertigo; Translations: [Dizziness and giddiness] 08-23-2013 Episodic Esophageal disorders (2 sources) Gastroesophageal reflux disease; Translations: [Gastro-esophageal reflux disease without esophagitis] Onset: 2 02-15-2022 Chronic Gastrointestinal hemorrhage (6 sources) Hemorrhage of rectum and anus; Translations: [Hemorrhage of anus and rectum] Onset: 2 Episodic Menopausal disorders (1 source) Menopausal symptom; Translations: [Menopausal and female climacteric states] 02-10-2023 Chronic Other aftercare (2 sources) History of malignant neoplasm of anus; Translations: [Encounter for follow-up examination after completed treatment for malignant neoplasm] Episodic Other circulatory disease (1 source) Orthostatic hypotension 02-15-2022 Episodic Other gastrointestinal disorders (1 source) Dysphagia 02-15-2022 Episodic Other gastrointestinal disorders (1 source) Occult blood in stools 02-15-2022 Episodic Other gastrointestinal disorders (1 source) Rectal mass 02-20-2022 Episodic Other gastrointestinal disorders (1 source) Diarrhea; Translations: [Diarrhea, unspecified] 12-10-2023 Episodic Other gastrointestinal disorders (1 source) Diarrhea, unspecified; Translations: [Diarrhea, unspecified type] Onset: 4 Episodic Other inflammatory condition of skin (1 source) Pruritus ani; Translations: [Pruritus ani] 12-10-2023 Episodic Other inflammatory condition of skin (1 source) Pruritus ani; Translations: [Anal itching] Onset: 4 Episodic Other nervous system disorders (1 source) Other chronic pain; Translations: [OTHER CHRONIC PAIN] Onset: 2 Chronic Other nervous system disorders (1 source) Paresthesia 02-15-2022 Episodic Other nutritional; endocrine; and metabolic disorders (1 source) Overweight in adulthood with body mass index of 25 or more but less than 30 02-20-2022 Episodic Other screening for suspected conditions (not mental disorders or infectious disease) (2 sources) Patient encounter status; Translations: [Encounter for screening for osteoporosis] 02-10-2023 Episodic Ovarian cyst (1 source) Cyst of ovary 02-15-2022 Episodic Residual codes; unclassified (1 source) Peripheral edema 02-15-2022 Episodic Spondylosis; intervertebral disc disorders; other back problems (1 source) Low back pain 02-15-2022 Episodic Unclassified (1 source) OPENED IN ERROR Unclassified (1 source) POSTURAL ORTHOSTATIC TACHY SYN POTS; Translations: [POSTURAL ORTHOSTATIC TACHY SYN POTS] Onset: 2 Unclassified (1 source) LOW BACK PAIN, UNSPECIFIED; Translations: [LOW BACK PAIN, UNSPECIFIED] Onset: 2 Unclassified (1 source) CONTACT W/AND (SUSP) EXPOS COVID-19; Translations: [CONTACT W/AND (SUSP) EXPOS COVID-19] Onset: 2 Past or Other Problems Problem Classification Problem Date Documented Da te Episodic/Chronic Cancer of rectum and anus (1 source) Personal history of other malignant neoplasm of rectum, rectosigmoid junction, and anus; Translations: [Encounter for follow-up surveillance of anal cancer] Onset: 07-11-2023 Episodic Other aftercare (1 source) Encounter for follow-up examination after completed treatment for malignant neoplasm; Translations: [Encounter for follow-up surveillance of anal cancer] Onset: 07-11-2023 Episodic Residual codes; unclassified (4 sources) Localized edema; Translations: [LOCALIZED EDEMA] Onset: 12-28-2021 Episodic Results Test Name Value Interpretation Reference Range Facility OVon 12-12-2023 CNOV Office Visit ([facility] ) KIRT REYNA ([id number]) 1970 F Date Time Provider Department 12/12/23 2:00 PM PHIL DOUGHERTY [facility] During your visit today, we recorded the following information about you: Temperature Pulse Blood pressure Weight 97.3 degrees 81/minute 140/75 80.3 kg Height 1.702 m Phil Dougherty MD 12/12/2023 2:11 PM Signed COLORECTAL SURGERY December 12, 2023 Kirt Reyna 53 year old Chief Complaint: diarrhea, anal itching History of Present Illness: Kirt Reyna is a 53 year old female presents today for evaluation of diarrhea and anal itching. She has a h/o anal cancer and was last seen on 10/31/23 for surveillance. 53-year-old female the above-stated history. She had a few days where her stools were thin and had some itching but this has now resolved. She just wanted to get checked out to make sure everything was okay PAST MEDICAL HISTORY Diagnosis Date Hiatal hernia POTS (postural orthostatic tachycardia syndrome) POTS (postural orthostatic tachycardia syndrome) 05/27/2022 Vertigo 1970 PAST SURGICAL HISTORY Procedure Laterality Date DANDC, DIAG AND/OR THERAPEUTIC molar OVARIAN CYSTECTOMY UNI/BI Current Outpatient Medications Medication Sig Dispense Refill CALCIUM ORAL Take by mouth once daily. cholecalciferol, vitamin D3, (VITAMIN D3 ORAL) Take by mouth once daily. multivit-min/ferrous fumarate (MULTI VITAMIN ORAL) Take by mouth once daily. (Patient not taking: Reported on 10/27/2023) ondansetron (ZOFRAN) 8 mg tablet TAKE 1 TABLET BY MOUTH EVERY 8 HOURS NEEDED FOR NAUSEA AND VOMITING (Patient taking differently: As needed) 90 tablet 1 Lidocaine-Hydrocortis one-Aloe 2.8-0.55 % gel Use 1 Applicator by RECTAL route twice daily as needed. (Patient not taking: Reported on 07/11/2023) 100 g 0 multivitamin tablet Take 1 tablet by mouth once daily. acetaminophen/diphenh ydramine (TYLENOL PM EXTRA STRENGTH ORAL) Take 500 mg by mouth as needed. fludrocortisone (FLORINEF) 0.1 mg tablet TAKE 0.5 TABLET BY MOUTH TWICE A DAY No current facility-administered medications for this visit. ALLERGIES Allergen Reactions Penicillin G Unknown Sulfa (Sulfonamide * Unknown FAMILY HISTORY Problem Relation Age of Onset other (cysts [Other]) Mother other (parkinson [Other]) Father Diabetes Father Social History Tobacco Use Smoking status: Never Passive exposure: Never Smokeless tobacco: Never Vaping Use Vaping Use: Never used Substance Use Topics Alcohol use: No Drug use: No Physical Exam: BP 140/75 (BP Site: Right Arm, BP Position: Sitting) Pulse 81 Temp 36.3 ?C (97.3 ?F) Ht 170.2 cm (5' 7 ) Wt 80.3 kg (177 lb) SpO2 100% BMI 27.72 kg/m? General Appearance: Well appearing, alert, in no acute distress, well-hydrated, well nourished. Anorectal: External exam reveals no lesions. Digital rectal exam reveals no gross blood or masses Bankruptcy Legal Assistant present: Yes, Padmini Garcia Anoscopy: The patient was placed in chest-knee position. After digital exam with a lubricated finger, the scope was easily inserted. Posterior scar noted. Otherwise normal mucosa was noted. Anoscopy completed. Assessment Assessment and Plan: Kirt Reyna is a 53 year old female with history of anal cancer and a few days of thin stools that have resolved. Everything looks fine and she is back to her baseline. She will continue with her surveillance plan and return to see me in April as previously scheduled Medical Decision Making: Data Reviewed: Tests AND Documents Reviewed/ordered: Review of prior notes from myself Review of Imaging: CT Abdomen, MRI Pelvis, CT Chest Review of Labs: CBC, BMP, LFT, Albumin Review of Procedures / Tests: Colonoscopy I have independently interpreted: CT Abdomen, MRI Pelvis, CT Chest Risk of morbidity, mortality and/or complications of treatment plan: high Phil Dougherty MD Colorectal Surgery Allergies As of Date: 12/12/2023 Noted Allergy Reaction PENICILLIN G 08/23/2013 16 - Unknown SULFA (SULFONAMIDE ANTIBIOTICS) 08/23/2013 16 - Unknown Date Reviewed: 12/12/2023 Reviewed by: Phil Dougherty MD - Fully Assessed Reason for Visit: Established Patient [175] Cmt: presents today for evaluation of diarrhea and anal itching. Primary Visit Diagnosis:Anal itching [L29.0] Other Visit Diagnosis:Diarrhea, unspecified type [R19.7] Prescriptions as of 12/12/2023 - CALCIUM ORAL Take by mouth once daily. - cholecalciferol, vitamin D3, (VITAMIN D3 ORAL) Take by mouth once daily. - multivit-min/ferrous fumarate (MULTI VITAMIN ORAL) Take by mouth once daily. - ondansetron (ZOFRAN) 8 mg tablet TAKE 1 TABLET BY MOUTH EVERY 8 HOURS NEEDED FOR NAUSEA AND VOMITING - Lidocaine-Hydrocortis one-Aloe 2.8-0.55 % gel Use 1 Applicator by RECTAL route twice daily as needed. - multivitamin tablet Take 1 tablet by hans (more content not included)... Normal [facility] CNOVon 10-31-2023 CNOV Office Visit ([facility] ) KIRT REYNA ([id number]) 1970 F Date Time Provider Department 10/31/23 4:00 PM PHIL DOUGHERTY [facility] During your visit today, we recorded the following information about you: Temperature Pulse Blood pressure 97.1 degrees 90/minute 143/68 Phil Dougherty MD 10/31/2023 5:32 PM Signed COLORECTAL SURGERY October 31, 2023 Kirt Reyna 53 year old Chief Complaint: anal cancer surveillance History of Present Illness: Kirt Reyna is a 53 year old female presents today for anal cancer surveillance. Last seen 07/11/23. CT chest 10/01/23 1. Stable subcentimeter pulmonary nodules which are likely benign. 2. No significant thoracic adenopathy. MRI abdomen 09/29/23 No metastatic disease in the abdomen. 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 No metastatic disease in the pelvis. Feels great. No pain. Tolerating diet with good bowel function. No bleeding PAST MEDICAL HISTORY Diagnosis Date Hiatal hernia POTS (postural orthostatic tachycardia syndrome) POTS (postural orthostatic tachycardia syndrome) 05/27/2022 Vertigo 1970 PAST SURGICAL HISTORY Procedure Laterality Date DANDC, DIAG AND/OR THERAPEUTIC molar OVARIAN CYSTECTOMY UNI/BI Current Outpatient Medications Medication Sig Dispense Refill CALCIUM ORAL Take by mouth once daily. cholecalciferol, vitamin D3, (VITAMIN D3 ORAL) Take by mouth once daily. multivit-min/ferrous fumarate (MULTI VITAMIN ORAL) Take by mouth once daily. ondansetron (ZOFRAN) 8 mg tablet TAKE 1 TABLET BY MOUTH EVERY 8 HOURS NEEDED FOR NAUSEA AND VOMITING 90 tablet 1 Lidocaine-Hydrocortis one-Aloe 2.8-0.55 % gel Use 1 Applicator by RECTAL route twice daily as needed. (Patient not taking: Reported on 07/11/2023) 100 g 0 multivitamin tablet Take 1 tablet by mouth once daily. acetaminophen/diphenh ydramine (TYLENOL PM EXTRA STRENGTH ORAL) Take 500 mg by mouth as needed. fludrocortisone (FLORINEF) 0.1 mg tablet TAKE 0.5 TABLET BY MOUTH TWICE A DAY No current facility-administered medications for this visit. ALLERGIES Allergen Reactions Penicillin G Unknown Sulfa (Sulfonamide * Unknown FAMILY HISTORY Problem Relation Age of Onset other (cysts [Other]) Mother other (parkinson [Other]) Father Diabetes Father Social History Tobacco Use Smoking status: Never Passive exposure: Never Smokeless tobacco: Never Vaping Use Vaping Use: Never used Substance Use Topics Alcohol use: No Drug use: No Physical Exam: BP 143/68 Pulse 90 Temp 36.2 ?C (97.1 ?F) SpO2 100% General Appearance: Well appearing, alert, in no acute distress, well-hydrated, well nourished. Abdomen: No inguinal lymphadenopathy Anorectal: External exam reveals no lesions. Digital rectal exam reveals no gross blood or masses Bankruptcy Legal Assistant present: Yes, Padmini Garcia Anoscopy: The patient was placed in chest-knee position. After digital exam with a lubricated finger, the scope was easily inserted. Posterior anal canal scar noted. Otherwise normal mucosa was noted. Anoscopy completed. Assessment Assessment and Plan: Kirt Reyna is a 53 year old female with anal cancer status post chemoradiation without any evidence of disease recurrence. She will return to see me in 6 months for another inguinal lymph node exam and surveillance anoscopy Medical Decision Making: Data Reviewed: Tests AND Documents Reviewed/ordered: Review of prior notes from myself Review of Pathology Review of Imaging: CT Abdomen, CT Pelvis, MRI Pelvis Review of Labs: CBC, BMP, LFT, Albumin Review of Procedures / Tests: Colonoscopy I have independently interpreted: CT Abdomen, CT Pelvis Risk of morbidity, mortality and/or complications of treatment plan: high Phil Dougherty MD Colorectal Surgery [facility]admini Garcia, [facility] 10/31/2023 4:13 PM Signed What is the reason for your visit today? F/u, anal cancer surveillance Who is your referring physician? Are you having poor oral intake? NO Have you had unintentional weight loss of 15 lbs/7 Kg in the last 3-6 months? NO Bowels: regular Wound: Temperature: No Drains: No Allergies As of Date: 10/31/2023 Noted Allergy Reaction PENICILLIN G 08/23/2013 16 - Unknown SULFA (SULFONAMIDE ANTIBIOTICS) 08/23/2013 16 - Unknown Date Reviewed: 10/31/2023 Reviewed by: Phil Dougherty MD - Fully Assessed Reason for Visit: Follow Up [171] Cmt: Anal cancer surveillance Primary Visit Diagnosis:Encounter for follow-up surveillance of anal cancer [Z08, Z85.048] Prescriptions as of 10/31/2023 - CALCIUM ORAL Take by mouth once daily. - cholecalciferol, vitamin D3, (VITAMIN D3 ORAL) Take by mouth once daily. - multivit-min/ferrous fumarate (MULTI VITAMIN ORAL) Take by mouth once daily. - ondansetron (ZOFRAN) 8 mg tablet TAKE 1 TABLET BY MOUTH EVERY 8 HOURS NEEDED FOR (more content not included)... Normal [facility] CBC W Auto Differential pane l (Bld)on 10-27-2023 Basophils (Bld) [#/Vol] 10*3/uL Normal <0.11 [facility] Comment on above: Order Comment: Speci men Type: BLOOD SPECIMENOrdering Facility: [facility] Address: [address] [place] [address] Performed By: #### 5 7021-8 ####[facility] [id number] [place] [address] Basophils/100 WBC (Bld) 0.2 % Normal [facility] Comment on above: Order Comment: Speci men Type: BLOOD SPECIMENOrdering Facility: [facility] Address: [address] [place] [address] Performed By: #### 5 7021-8 ####[facility] [id number] [place] [address] Differential cell count method Nom (Bld) Auto Normal [facility] Comment on above: Order Comment: Speci men Type: BLOOD SPECIMENOrdering Facility: [facility] Address: [address] [place] [address] Performed By: #### 5 7021-8 ####[facility] [id number] [place] [address] Eosinophils (Bld) [#/Vol] 0.12 10*3/uL Normal <0.46 [facility] Comment on above: Order Comment: Speci men Type: BLOOD SPECIMENOrdering Facility: [facility] Address: [address] [place] [address] Performed By: #### 5 7021-8 ####[facility] [id number] [place] [address] Eosinophils/100 WBC (Bld) 2.5 % Normal [facility] Comment on above: Order Comment: Speci men Type: BLOOD SPECIMENOrdering Facility: [facility] Address: [address] [place] [address] Performed By: #### 5 7021-8 ####[facility] [id number] [place] [address] Erythrocyte distribution width (RBC) [Ratio] 12.9 % Normal 11.5-15.0 [facility] Comment on above: Order Comment: Speci men Type: BLOOD SPECIMENOrdering Facility: [facility] Address: [address] [place] [address] Performed By: #### 5 7021-8 ####[facility] [id number] [place] [address] Hematocrit (Bld) [Volume fraction] 38.0 % Normal 36.0-46.0 [facility] Comment on above: Order Comment: Speci men Type: BLOOD SPECIMENOrdering Facility: [facility] Address: [address] [place] [address] Performed By: #### 5 7021-8 ####[facility] [id number] [place] [address] Hemoglobin (Bld) [Mass/Vol] 12.8 g/dL Normal 11.5-15.5 [facility] Comment on above: Order Comment: Speci men Type: BLOOD SPECIMENOrdering Facility: [facility] Address: [address] [place] [address] Performed By: #### 5 7021-8 ####[facility] [id number] [place] [address] Immature granulocytes (Bld) [#/Vol] 10*3/uL Normal <0.10 [facility] Comment on above: Order Comment: Speci men Type: BLOOD SPECIMENOrdering Facility: [facility] Address: [address] [place] [address] Performed By: #### 5 7021-8 ####[facility] [id number] [place] [address] Immature granulocytes/100 WBC (Bld) 0.2 % Normal [facility] Comment on above: Order Comment: Speci men Type: BLOOD SPECIMENOrdering Facility: [facility] Address: [address] [place] [address] Performed By: #### 5 7021-8 ####[facility] [id number] [place] [address] Lymphocytes (Bld) [#/Vol] 1.18 10*3/uL Normal 1.00-4.00 [facility] Comment on above: Order Comment: Speci men Type: BLOOD SPECIMENOrdering Facility: [facility] Address: [address] [place] [address] Performed By: #### 5 7021-8 ####[facility] [id number] [place] [address] Lymphocytes/100 WBC (Bld) 24.9 % Normal [facility] Comment on above: Order Comment: Speci men Type: BLOOD SPECIMENOrdering Facility: [facility] Address: [address] [place] [address] Performed By: #### 5 7021-8 ####[facility] [id number] [place] [address] MCH (RBC) [Entitic mass] 29.5 pg Normal 26.0-34.0 [facility] Comment on above: Order Comment: Speci men Type: BLOOD SPECIMENOrdering Facility: [facility] Address: [address] [place] [address] Performed By: #### 5 7021-8 ####[facility] [id number] [place] [address] MCHC (RBC) [Mass/Vol] 33.7 g/dL Normal 30.5-36.0 [facility] Comment on above: Order Comment: Speci men Type: BLOOD SPECIMENOrdering Facility: [facility] Address: [address] [place] [address] Performed By: #### 5 7021-8 ####[facility] [id number] [place] [address] MCV (RBC) [Entitic vol] 87.6 fL Normal 80.0-100.0 [facility] Comment on above: Order Comment: Speci men Type: BLOOD SPECIMENOrdering Facility: [facility] Address: [address] [place] [address] Performed By: #### 5 7021-8 ####[facility] [id number] [place] [address] Monocytes (Bld) [#/Vol] 0.43 10*3/uL Normal <0.87 [facility] Comment on above: Order Comment: Speci men Type: BLOOD SPECIMENOrdering Facility: [facility] Address: [address] [place] [address] Performed By: #### 5 7021-8 ####[facility] [id number] [place] [address] Monocytes/100 WBC (Bld) 9.1 % Normal [facility] Comment on above: Order Comment: Speci men Type: BLOOD SPECIMENOrdering Facility: [facility] Address: [address] [place] [address] Performed By: #### 5 7021-8 ####[facility] [id number] [place] [address] Neutrophils (Bld) [#/Vol] 2.99 10*3/uL Normal 1.45-7.50 [facility] Comment on above: Order Comment: Speci men Type: BLOOD SPECIMENOrdering Facility: [facility] Address: [address] [place] [address] Performed By: #### 5 7021-8 ####[facility] [id number] [place] [address] Neutrophils/100 WBC (Bld) 63.1 % Normal [facility] Comment on above: Order Comment: Speci men Type: BLOOD SPECIMENOrdering Facility: [facility] Address: [address] [place] [address] Performed By: #### 5 7021-8 ####[facility] [id number] [place] [address] Nucleated RBC (Bld) [#/Vol] 10*3/uL Normal <0.01 [facility] Comment on above: Order Comment: Speci men Type: BLOOD SPECIMENOrdering Facility: [facility] Address: [address] [place] [address] Performed By: #### 5 7021-8 ####[facility] [id number] [place] [address] Nucleated RBC/100 WBC (Bld) [Ratio] 0.0 /100 WBC Normal [facility] Comment on above: Order Comment: Speci men Type: BLOOD SPECIMENOrdering Facility: [facility] Address: [address] [place] [address] Performed By: #### 5 7021-8 ####[facility] [id number] [place] [address] Platelet mean volume (Bld) [Entitic vol] 9.9 fL Normal 9.0-12.7 [facility] Comment on above: Order Comment: Speci men Type: BLOOD SPECIMENOrdering Facility: [facility] Address: [address] [place] [address] Performed By: #### 5 7021-8 ####[facility] [id number] [place] [address] Platelets (Bld) [#/Vol] 238 10*3/uL Normal 150-400 [facility] Comment on above: Order Comment: Speci men Type: BLOOD SPECIMENOrdering Facility: [facility] Address: [address] [place] [address] Performed By: #### 5 7021-8 ####[facility] [id number] [place] [address] RBC (Bld) [#/Vol] 4.34 10*6/uL Normal 3.90-5.20 [facility] Comment on above: Order Comment: Speci men Type: BLOOD SPECIMENOrdering Facility: [facility] Address: [address] [place] [address] Performed By: #### 5 7021-8 ####[facility]IA [id number] [place] [address] WBC (Bld) [#/Vol] 4.74 10*3/uL Normal 3.70-11.00 [facility] Comment on above: Order Comment: Speci men Type: BLOOD SPECIMENOrdering Facility: [facility] Address: [address] [place] [address] Performed By: #### 5 7021-8 ####[facility] LABIA [id number] [place] [address] CNOVon 10-27-2023 CNOV Office Visit ([facility] ) KIRT REYNA ([id number]) 1970 F Date Time Provider Department 10/27/23 3:00 PM TORIBIO MICHAUD During your visit today, we recorded the following information about you: Toribio Michaud MD 11/11/2023 5:24 AM Addendum Radiation Oncology - Follow Up Note PATIENT NAME: Kirt Reyna PATIENT DIAGNOSIS/PATIENT IDENTIFICATION: Ms. 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 She completed a course of definitive concurrent chemoradiation therapy on 07/25/2022 (5600 cGy delivered in 28 fractions with partial course of Xeloda) INTERVAL HISTORY/ROS: Ms. Reyna returns to clinic today for routine follow-up approximately fifteen months after the completion of her radiation treatments and one year since her last visit on 10/28/2022. In the interim, she had her annual surveillance imaging with MRI of the abdomen/rectum on 09/29/[address] of the chest on 10/01/2023 showing treated anorectal neoplasm without evidence viable tumor and no evidence of regional or distant metastatic disease. She also met with Dr. Dougherty on 07/11/2023 with anoscopy revealing posterior anal scar with no evidence of disease recurrence. Today she reports doing well and denies any pain/discomfort in the pelvis or perianal area and reports fairly regular bowel movements without blood or pain or fecal incontinence. She denies any skin breakdown or irritation in the area and use a moisturizer daily. She denies any urinary issues or vaginal irritation or nausea. She endorses stable energy appetite and hydration with stable weight. She has chronic lower back pain but otherwise denies any recent fevers, chills, headaches, difficulty with speech/swallowing, shortness of breath, chest pain/palpitations, abdominal pain, nausea, vomiting, change in bowel/urinary habits, difficulty with gait/balance, recent falls, etc. The remainder of the review of systems was performed and was otherwise noncontributory. ALLERGIES ALLERGIES Allergen Reactions Penicillin G Unknown Sulfa (Sulfonamide * Unknown MEDICATIONS: Current Outpatient Medications: CALCIUM ORAL cholecalciferol, vitamin D3, (VITAMIN D3 ORAL) multivit-min/ferrous fumarate (MULTI VITAMIN ORAL) ondansetron (ZOFRAN) 8 mg tablet Lidocaine-Hydrocortis one-Aloe 2.8-0.55 % gel multivitamin tablet acetaminophen/diphenh ydramine (TYLENOL PM EXTRA STRENGTH ORAL) fludrocortisone (FLORINEF) 0.1 mg tablet PHYSICAL EXAM: GENERAL: middle-aged woman sitting in chair in no acute distress. VITALS: There were no vitals taken for this visit. KPS: 90 HEENT: NC/AT, anicteric sclera HEART: S1S2 LUNGS: non-labored breathing ABDOMEN: soft MUSCULOSKELETAL: no peripheral edema, moves all extremities. NEURO: no focal deficit; AANDO X3. RADIOLOGIC DATA: MRI Rectum (09/29/2023) IMPRESSION: Treated anorectal neoplasm without evident viable tumor. No metastatic disease in the pelvis. MRI Abdomen (09/29/2023) IMPRESSION: No metastatic disease in the abdomen. CT Chest (10/01/2023) IMPRESSION: 1. Stable subcentimeter pulmonary nodules which are likely benign. 2. No significant thoracic adenopathy. ASSESSMENT AND PLAN: Ms. eRyna is a 53-year-old woman with [id number] squamous cell carcinoma of the anal canal. She completed a course of definitive concurrent chemoradiation therapy on 07/25/2022 (5600 cGy delivered in 28 fractions with partial course of Xeloda). Ms. Reyna is doing well clinically approximately 15 months after the completion of her chemoradiation treatments to the pelvis with no significant residual sequela at this time. She is without radiographic or clinical evidence of disease based on her recent imaging with MRI of the abdomen/rectum as well as CT chest from September showing no local regional evidence of disease as well as her endoscopy from June with Dr. Dougherty also showing anal scar without concern for disease recurrence. She will continue her follow-up and surveillance with Dr. Dougherty and I will plan to see her back in approximately 1 year with repeat imaging. The patient is aware to contact the clinic in the interim should any questions or concerns arise. Thank you for allowing us to participate in the care of this patient. Signed by: Toribio Michaud MD I spent a total of 20 minutes on the date of the service which included preparing to see the patient, [id number] patient care, and counseling and educating the patient/family/caregi gavin. This document has been created with the use of voice recognition technology. It may contain inaccuracies, misspellings, inaccurate syntax or inappropriate word context that are a result of the inadequacies/shortcom ings of said technology/software. Allergies As of Date: 10/27/2023 Noted Allergy Reaction PENICILLIN G 08/23/2013 16 - Unknown SULFA (SULFONAMIDE (more content not included)... Normal [facility] CNOVSPon 10-27-2023 CNOVSP Visit (SP) Office ([place]) KIRT REYNA ([id number]) 1970 F Date Time Provider Department 10/27/23 2:15 PM PACO BONDS During your visit today, we recorded the following information about you: Temperature Pulse Respiration Blood pressure 97 degrees 93/minute 16/minute 144/65 Weight Height 80.4 kg 1.702 m Paco Bonds MD 10/28/2023 2:27 PM Signed NAME: Kirt Reyna CLINIC NO.: [id number] DATE OF SERVICE: October 27, 2023 (Vamshi) Some elements in this clinic note that are critical to medical decision making have been carefully reviewed and included from a prior clinic note dated: April 28, 2023 (Vamshi) Referring Provider: Dr. Phil Dougherty Additional Clinicians involved in Kirt Reyna's care: Dr. Sondra Liu, Dr. Vitaly Vaughn, Dr. 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 Chemo RT started 06/13/2022. Stopped Xeloda pills on 07/01/2022 due to developing POTS symptoms. Good response ~ 1 month following RT. Continued response after treatment conclusion with abbreviated Xeloda. PLAN: RTC in 6 months - coordinate same day with Dr. Michaud Labs on return - CBC, CMP - HPI: CASE HISTORY: Reverse Chronological Order 10/22/2023 - US Breast RT: Diagnostic category: 2 Scattered benign-appearing nodules are present. Scattered benign-appearing calcifications are present. Scattered benign-appearing lymph nodes are present. 10/22/2023 - Diagnostic Mammogram BI: Diagnostic category: 2 Right breast: No significant suspicious finding Left breast: Stable nodules. Ultrasound demonstrated 2 unchanged oval areas of hypoechogenicity without color flow measuring 1.0 and 0.3 cm in size. Given lack of change from the prior exam, I favor complex cysts. 10/01/2023 - CT Chest: Stable subcentimeter pulmonary nodules which are likely benign. No significant thoracic adenopathy. 09/29/2023 - MRIs: Abdomen: No metastatic disease in the abdomen. Rectum: Treated anorectal neoplasm without evident viable tumor. No metastatic disease in the pelvis. 08/19/2023 - XR Lumbar Spine: 11mm anterolisthesis of L5 on S1 04/30/2023 - Diagnostic Mammogram LT AND US Breast BI: Diagnostic category: 3 Ultrasound of the right breast demonstrates 2 focal oval areas of hypoechogenicity without definitive color flow. At the 10 o'clock position is a 1.0 x 0.4 x 0.8 cm lesion. At the 10 o'clock position is 2nd oval hypodense lesion measuring 2.7 x 2.7 x 2.8 mm. These correspond to the mammographic abnormalities and complex cysts are favored. Three spot magnifications views of the left breast demonstrate compression of the density in the upper outer quadrant with geographic microcalcifications, nonspecific. No ultrasound abnormality. 04/08/2023 - Screening Mammogram: Right breast: No significant suspicious finding. Several well-circumscribed nodules are noted in the upper outer quadrant, difficult to see on prior non tomographic images. Left breast: New area of focal asymmetry upper outer quadrant with microcalcifications, posterior breast. 02/17/2023 - DXA bone density Consistent with osteopenia. 10/11/2022 - MRI Rectum - MARKED INTERVAL DECREASE IN SIZE OF ANORECTAL TUMOR, WITH A SMALL FOCUS OF RESIDUAL VIABLE TUMOR REMAINING 08/28/2022 - CT CAP - Subcentimeter right-sided lung nodules, unchanged. 1.4 cm right rectal mass, decreased in conspicuity. 07/01/2022 - CT CAP - Chest sub-cm nodule, Abd/Pelvis - 1.4 cm rectal mass decreased (5.2 cm prior MRI) 06/24/2022 - Xeloda dose reduced to 1000 mg BID M-F d/t intolerance 06/13/2022 - Started chemo/radiation with xeloda 1500 mg BID M-F 05/21/2022 - MRI Rectum: Anorectal tumor invading sphincter and with extension through right lower rectal wall into the mesorectal fat - broad based abutment of iliococcygeus muscle. MR - T3 N0 05/21/2022 - CT CAP: 1.8 cm sclerotic focus in prox right humerus - likely benign, 0.4 cm non-calcified pulmonary nodules, otherwise negative for metastatic disease. 04/24/2022 - Sigmoidoscopy, Dr. Vaughn: Rectal exam revealed a larger rectal mass in the right posterior lateral area, taking up approximately a third of the circumference, measured approximately 3.5 cm. 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 Oncoprotein p16 diffusely (+) 02/20/2022 - Rectal mass identified - Delay in subsequent workup due to patient's concern with debilitating POTS. 2019 - POTS diagnosed just as COVID-19 hit. Updated Visit, October 27, 2023: Cherie returns today, doing well overall. She mentions back pain and will be starting (more content not included)... Normal [facility] Comprehensive metabolic 2000 panelon 10-27-2023 Albumin [Mass/Vol] 4.2 g/dL Normal 3.9-4.9 [facility] Comment on above: Order Comment: Speci men Type: BLOOD SPECIMENOrdering Facility: [facility] Address: [address] [place] [address] Performed By: #### 2 4323-8 ####[facility] LABCLIA [id number] [place] [address] ALP [Catalytic activity/Vol] 108 U/L Normal 34-123 [facility] Comment on above: Order Comment: Speci men Type: BLOOD SPECIMENOrdering Facility: [facility] Address: [address] [place] [address] Performed By: #### 2 4323-8 ####[facility] LABCLIA [id number] [place] [address] ALT [Catalytic activity/Vol] 20 U/L Normal 7-38 [facility] Comment on above: Order Comment: Speci men Type: BLOOD SPECIMENOrdering Facility: [facility] Address: [address] [place] [address] Performed By: #### 2 4323-8 ####[facility] LABCLIA [id number] [place] [address] Anion gap [Moles/Vol] 11 mmol/L Normal 9-18 [facility] Comment on above: Order Comment: Speci men Type: BLOOD SPECIMENOrdering Facility: [facility] Address: [address] [place] [address] Performed By: #### 2 4323-8 ####[facility] LABCLIA [id number] [place] [address] AST [Catalytic activity/Vol] 22 U/L Normal 13-35 [facility] Comment on above: Order Comment: Speci men Type: BLOOD SPECIMENOrdering Facility: [facility] Address: [address] [place] [address] Performed By: #### 2 4323-8 ####[facility] LABCLIA [id number] [place] [address] Bilirubin [Mass/Vol] 0.2 mg/dL Normal 0.2-1.3 [facility] Comment on above: Order Comment: Speci men Type: BLOOD SPECIMENOrdering Facility: [facility] Address: [address] [place] [address] Performed By: #### 2 4323-8 ####[facility] LABCLIA [id number] [place] [address] Calcium [Mass/Vol] 9.7 mg/dL Normal 8.5-10.2 [facility] Comment on above: Order Comment: Speci men Type: BLOOD SPECIMENOrdering Facility: [facility] Address: [address] [place] [address] Performed By: #### 2 4323-8 ####[facility] LABCLIA [id number] [place] [address] Chloride [Moles/Vol] 102 mmol/L Normal 97-105 [facility] Comment on above: Order Comment: Speci men Type: BLOOD SPECIMENOrdering Facility: [facility] Address: [address] [place] [address] Performed By: #### 2 4323-8 ####[facility] LABCLIA [id number] [place] [address] CO2 [Moles/Vol] 26 mmol/L Normal 22-30 [facility] Comment on above: Order Comment: Speci men Type: BLOOD SPECIMENOrdering Facility: [facility] Address: [address] [place] [address] Performed By: #### 2 4323-8 ####[facility] LABIA [id number] [place] [address] Creatinine [Mass/Vol] 0.68 mg/dL Normal 0.58-0.96 [facility] Comment on above: Order Comment: Speci men Type: BLOOD SPECIMENOrdering Facility: [facility] Address: [address] [place] [address] Performed By: #### 2 4323-8 ####[facility] LABIA [id number] [place] [address] Creatinine and Glomerular filtration rate.predicted panel (S/P/Bld) 104 mL/min/1.73m??? Normal >=60 [facility] Comment on above: Order Comment: Speci men Type: BLOOD SPECIMENOrdering Facility: [facility] Address: [address] [place] [address] Result Comment: Alma mated Glomerular Filtration Rate (eGFR) is calculated using the 2020 CKD-EPI creatinine equation. This equation utilizes serum creatinine, sex, and age as parameters. The creatinine assay has traceable calibration to isotope dilution-mass spectrometry. Refer to KDIGO guidelines for clinical interpretation. In patients with unstable renal function, e.g. those with acute kidney injury, the eGFR may not accurately reflect actual GFR. Performed By: #### 2 4323-8 ####[facility] LABIA [id number] [place] [address] Glucose [Mass/Vol] 126 mg/dL High 74-99 [facility] Comment on above: Order Comment: Speci men Type: BLOOD SPECIMENOrdering Facility: [facility] Address: [address] [place] [address] Result Comment: The [place] [employer] (ADA) provides guidance for cutoff values for fasting glucose and random glucose. The ADA defines fasting as no caloric intake for at least 8 hours. Fasting plasma glucose results between 100 to 125 mg/dL indicate increased risk for diabetes (prediabetes). Fasting plasma glucose results greater than or equal to 126 mg/dL meet the criteria for diagnosis of diabetes. In the absence of unequivocal hyperglycemia, results should be confirmed by repeat testing. In a patient with classic symptoms of hyperglycemia or hyperglycemic crisis, random plasma glucose results greater than or equal to 200 mg/dL meet the criteria for diagnosis of diabetes. Reference: Standards of Medical Care in Diabetes 2016, [place] [employer]. Diabetes Care. 2016.39(Suppl 1). Performed By: #### 2 4323-8 ####[facility] LABCLIA [id number] [place] [address] Potassium [Moles/Vol] 3.7 mmol/L Normal 3.7-5.1 [facility] Comment on above: Order Comment: Speci men Type: BLOOD SPECIMENOrdering Facility: [facility] Address: [address] [place] [address] Performed By: #### 2 4323-8 ####[facility] LABCLIA [id number] [place] [address] Protein [Mass/Vol] 7.2 g/dL Normal 6.3-8.0 [facility] Comment on above: Order Comment: Speci men Type: BLOOD SPECIMENOrdering Facility: [facility] Address: [address] [place] [address] Performed By: #### 2 4323-8 ####[facility] LABCLIA [id number] [place] [address] Sodium [Moles/Vol] 139 mmol/L Normal 136-144 [facility] Comment on above: Order Comment: Speci men Type: BLOOD SPECIMENOrdering Facility: [facility] Address: [address] [place] [address] Performed By: #### 2 4323-8 ####[facility] LABCLIA [id number] [place] [address] Urea nitrogen [Mass/Vol] 20 mg/dL Normal 7-21 [facility] Comment on above: Order Comment: Speci men Type: BLOOD SPECIMENOrdering Facility: [facility] Address: [facility] [place] [address] Performed By: #### 2 4323-8 ####[facility] LABCLIA [id number] [place] [address] CT CHEST WO IVCONon 10-01-[address] CHEST WO IVCON * * *Final Report* * * DATE OF EXAM: Oct 01 2023 10:43AM [facility] 0541 - CT CHEST WO IVCON / PROCEDURE REASON: Malignant neoplasm of anus (HCC) * * * * Physician Interpretation * * * * RESULT: EXAMINATION: CHEST CT WITHOUT CONTRAST CLINICAL HISTORY: Anal cancer. Technique: Spiral CT acquisition of the chest from the thoracic inlet to the upper abdomen without contrast. MQ: [id number] CT Radiation dose: Integrated Dose-length product (DLP) for this visit = 257 mGy*cm CT Dose Reduction Employed: Automated exposure control (AEC) Comparison: Chest CT with contrast from 08/28/2012 RESULT: Limitations: None. Lines, tubes, and devices: None. Lung parenchyma and airways: Stable 4 mm triangular nodule along the major fissure on slice 92 of series 3. This likely represent a benign intrapulmonary lymph node given the morphology and location. Stable 2 mm solid nodule in the lateral right lower lobe on slice 99 of series 3. Pleural space: No pleural effusion. No pleural thickening. Lower neck, lymph nodes, and mediastinum: No suspicious axillary or mediastinal lymphadenopathy. Heart, pericardium, and thoracic vessels: Trace pericardial fluid. No significant coronary artery calcification. Bones and soft tissues: Small calcification superior and lateral to the right humeral head, likely reflecting calcific tendinosis. Upper abdomen: No abnormality in the imaged upper abdomen. Aging Room Operator (topogram) images: No additional findings. IMPRESSION: 1. Stable subcentimeter pulmonary nodules which are likely benign. 2. No significant thoracic adenopathy. Transcribe Date/Time: Oct 01 2023 12:12P Dictated by: VITALY VALERA MD This examination was interpreted and the report reviewed and electronically signed by: VITALY VALERA MD on Oct 01 2023 12:42PM EST Thank you for allowing us to participate in the care of your patient. Should there be any questions regarding this interpretation, please call [phone]. If you are unable to reach us at the number above, please feel free to contact [facility]Radiology at [phone]. [id number] N Normal [facility] MRI ABDOMEN WO/W IVCONon MRI ABDOMEN WO/W IVCON * * *Final Report* * * DATE OF EXAM: Sep 29 2023 1:54PM [facility] 0689 - MRI ABDOMEN WO/W IVCON / PROCEDURE REASON: Malignant neoplasm of anus (HCC) * * * * Physician Interpretation * * * * RESULT: MRI ABDOMEN WITHOUT AND WITH IV CONTRAST CLINICAL HISTORY: Anorectal squamous cell carcinoma. TECHNIQUE: Magnet: 1.5T scanner. Multiplanar MRI of the abdomen with multiple sequences, including both pre- and post-contrast imaging, utilizing liver protocol. Contrast: Contrast: IV administration of 20 ml of Dotarem COMPARISON: CT abdomen/pelvis 08/28/2022 RESULT: Liver: Normal morphology. No steatosis. No suspicious lesion. Hepatic vasculature: * Portal venous system (splenic vein, main portal vein, left and right anterior and right posterior portal vein branches): Patent. * Celiac trunk and SMA: Patent. * Hepatic veins: Patent. Other findings: Spleen: 8.8 cm (craniocaudally), normal. No mass. Mesentery/Peritoneum: No ascites. No mass. Biliary: No bile duct dilation. Gallbladder is normal. Pancreas: No mass or duct dilation. Adrenals: No mass. Kidneys: No solid or cystic mass. No hydronephrosis. GI: No dilated bowel or wall thickening in imaged segments. Lymph nodes: No abdominal lymphadenopathy. Vasculature: No abdominal aortic aneurysm. Bones/Soft Tissues: No suspicious lesion. Lower chest: Unremarkable. Aging Room Operator (localizer) images: No additional findings. IMPRESSION: No metastatic disease in the abdomen. Transcribed Using Voice Recognition Transcribe Date/Time: Sep 29 2023 2:34P Dictated by: JAYLEEN RAND MD This examination was interpreted and the report reviewed and electronically signed by: MARINO GÓMEZ DO on Sep 29 2023 3:42PM EST [id number] Normal [facility] MRI RECTUM WO/W IVCONon 09-11 MRI RECTUM WO/W IVCON * * *Final Report* * * DATE OF EXAM: Sep 29 2023 1:54PM [facility] 0754 - MRI RECTUM WO/W IVCON / PROCEDURE REASON: Malignant neoplasm of anus (HCC) * * * * Physician Interpretation * * * * RESULT: MRI OF THE ABDOMEN AND PELVIS WITHOUT AND WITH CONTRAST: RECTAL CANCER RESTAGING CLINICAL HISTORY: Rectal Cancer RESTAGING Pretreatment Tumor Staging: T3 N0 Rectal tumor histology: Squamous cell carcinoma. Prior chemotherapy or radiation: Yes COMPARISON: Compared to MRI 10/11/2022, 05/21/2022 TECHNIQUE: Magnet: Siemens Altea 1.5T scanner. Multiplanar MRI with multiple sequences before and after contrast. Contrast: IV: 20 ml of Dotarem Rectal: 60 ml of Surgilube RESULT: TREATED PRIMARY TUMOR CHARACTERISTICS (Compare to pre-treatment): DWI (with associated low ADC) - restricted diffusion and low ADC in tumor or tumor bed: Absent. MRI-T2W: Entirely dark T2 signal/scar involving the distal right posterolateral rectum, adjacent mesorectal fat/levator complex, and mid/upper anal canal. T2 bright mucin (cannot distinguish between cellular and acellular mucin): Absent. Description: Previously T2 intermediate signal along the right posterolateral canal is no longer identified and has been replaced by T2 hypointense scar. Distance of the inferior margin of treated tumor to the anal verge: 2.1 cm (2:13) Distance of the inferior margin to the top of sphincter complex/anorectal junction: 0 cm (2:13) Relationship to anterior peritoneal reflection: Below. Craniocaudal length: 2.7 cm (2:13) Pre-treatment craniocaudal length: 5.2 cm Tumor location: Anal/low rectum (0-5 cm) Maximal wall thickness: 0.7 cm (7:8) Pre-treatment wall thickness: 2.1 cm Invasion of anal sphincter complex: Invades IAS + ISS + extends into or through external sphincter. Anal canal involvement: Upper and mid anal canal. TUMOR DEPOSITS AND EXTRAMURAL VASCULAR INVASION (EMVI): Tumor deposits:(separate from metastatic lymph nodes): No. EMVI: No (none evident pre-treatment). MESORECTAL FASCIA (MRF): Shortest distance of extraluminal part of the tumor to MRF: Tumor does not extend into the mesorectal fat. Tumor extension through the peritonealized portion of the rectum into peritoneal fat: No extension into peritoneal fat. Is there a separate tumor deposit, LN or EMVI threatening (?1mm and ?2 mm) or invading (< 1 mm) the MRF? No. POST-TREATMENT TUMOR REGRESSION: mrTRG: Not applicable (squamous cell carcinoma). LYMPH NODES: Mesorectal/superior rectal lymph nodes and/or tumor deposits: N0 (no visible lymph nodes/deposits or only < 5 mm short axis) Suspicious extra mesorectal lymph nodes: None. OTHER STRUCTURES/ ORGANS INVOLVED: None The study was reviewed with Dr Trevizo, a member of the [facility] rectal cancer multidisciplinary tumor board. IMPRESSION: Treated anorectal neoplasm without evident viable tumor. No metastatic disease in the pelvis. Transcribed Using Voice Recognition Transcribe Date/Time: Sep 29 2023 2:04P Dictated by: JAYLEEN RAND MD This examination was interpreted and the report reviewed and electronically signed by: MARINO GÓMEZ DO on Sep 29 2023 3:47PM EST [id number] N [facility] No Panel Informationon 09-28 [facility] CNPNon 09-12-2023 CNPN Telephone (NCCAP) KIRT REYNA ([id number]) 1970 F Date Time Provider Department 09/12/23 TORIBIO MICHAUD During your visit today, we recorded the following information about you: Magdalena Laureano 09/12/2023 11:14 AM Signed Hi, can you please place a new MRI order for patient, thank you so much. Toribio Michaud MD 09/12/2023 12:31 PM Signed Orders placed ... Thanks! Magdalena Valerio 09/15/2023 7:36 AM Signed Called patient to schedule her scans, she stated this is not how they are usually ordered? Not sure what she means by that not sure if you guys could call her and ask.. I know she called Friday but Shari was over there, thanks! Eliza Ceballos, BLAIR 09/15/2023 7:[address] Michaud- it looks like the MRI Abdomen has not been ordered in the past. Is this to follow up on the renal mass on CT? Please advise so we know what to explain to patient. Thank you! BLAIR Martinez Saju, MD 09/17/2023 9:34 AM Signed NCCN guidelines recommend either 1. CT chest abdomen pelvis with IV contrast OR 2 CT chest wo contrast AND MRI Abdomen/Pelvis with contrast annually for surveillance ... I was going with the latter option. Thanks! Eliza Vaughan RN 09/18/2023 12:10 PM Signed Discussed with patient and she is in agreement with plan. Eliza Ceballos RN Allergies As of Date: 09/12/2023 Noted Allergy Reaction PENICILLIN G 08/23/2013 16 - Unknown SULFA (SULFONAMIDE ANTIBIOTICS) 08/23/2013 16 - Unknown Date Reviewed: 07/11/2023 Reviewed by: Phil Dougherty MD - Fully Assessed Reason for Visit: Orders [681] Primary Visit Diagnosis: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] Order(s):MRI RECTUM WO/W IVCON [[id number]] Order #: [id number] FUTURE [] enteric contrast (will be provided with radiology test)MRI RECTUM WO/W. Administer, As Directed One Time Only, via Oral, Rectal, both Oral and Rectal, Enteric Tube, Stoma or Indwelling Catheter,? Enteric Contrast as designated per enteric contrast guidelinesDisp: 1 EachRfl: 0 MRI ABDOMEN WO/W IVCON [[id number]] Order #: [id number] FUTURE [] iv contrast (will be provided with radiology test)MRI ABD/PEL Inject, intravenously, once for 1 dose. No IV access, insert saline lock prior to the beginning of sedation, infusion, injection of imaging exam. Discontinue saline lock post exam. If Pt. has a central line or IVAD, may access for administration according to line specific nursing protocol. Once exam is complete flush line and de-access according to line specific nursing protocol in the MR contrast administration guidelines link.Disp: 1 EachRfl: 0 CT CHEST WO IVCON [[id number]] Order #: [id number] FUTURE Prescriptions as of 09/18/2023 - CALCIUM ORAL Take by mouth once daily. - cholecalciferol, vitamin D3, (VITAMIN D3 ORAL) Take by mouth once daily. - multivit-min/ferrous fumarate (MULTI VITAMIN ORAL) Take by mouth once daily. - ondansetron (ZOFRAN) 8 mg tablet TAKE 1 TABLET BY MOUTH EVERY 8 HOURS NEEDED FOR NAUSEA AND VOMITING - Lidocaine-Hydrocortis one-Aloe 2.8-0.55 % gel Use 1 Applicator by RECTAL route twice daily as needed. - multivitamin tablet Take 1 tablet by mouth once daily. - acetaminophen/diphenh ydramine (TYLENOL PM EXTRA STRENGTH ORAL) Take 500 mg by mouth as needed. - fludrocortisone (FLORINEF) 0.1 mg tablet TAKE 0.5 TABLET BY MOUTH TWICE A DAY Meds Comments as of 04/28/2023: Tumeric Problem List As Of Date 09/12/2023 Noted Resolved Hiatal hernia [K44.9] Vertigo [R42] Anal cancer (HCC) [C21.0] 05/27/2022 POTS (postural orthostatic tachycardia syndrome*05/27/2022 Prescriptions ordered this encounter Disp Refills Start End ENTERIC CONTRAST (RADIOLOGY PROCEDUR* 1 Ea* 0 09/12/2023 09/13/2023 Class: In Office Sig: MRI RECTUM WO/W. Administer, As Directed One Time Only, via Oral, Rectal, both Oral and Rectal, Enteric Tube, Stoma or Indwelling Catheter,? Enteric Contrast as designated per enteric contrast guidelines IV CONTRAST (RADIOLOGY PROCEDURE) 1 Ea* 0 09/12/2023 09/13/2023 Class: In Office Sig: MRI ABD/PEL Inject, intravenously, once for 1 dose. No IV access, insert saline lock prior to the beginning of sedation, infusion, injection of imaging exam. Discontinue saline lock post exam. If Pt. has a central line or IVAD, may access for administration according to line specific nursing protocol. Once exam is complete flush line and de-access according to line specific nursing protocol in the MR contrast administration guidelines link. Encounter Status:Closed by ELIZA CEBALLOS on 09/18/23 Normal [facility] CNOVon 07-11-2023 CNOV Office Visit ([facility] ) KIRT REYNA ([id number]) 1970 F Date Time Provider Department 07/11/23 2:40 PM PHIL DOUGHERTY [facility] During your visit today, we recorded the following information about you: Temperature Pulse Blood pressure 97.3 degrees 85/minute 140/65 Padmini Garcia [facility] 07/11/2023 2:27 PM Signed What is the reason for your visit today? Anal cancer surveillance Who is your referring physician? Are you having poor oral intake? NO Have you had unintentional weight loss of 15 lbs/7 Kg in the last 3-6 months? NO Bowels: thin in size, but goes regularly enough Wound: Temperature: No Drains: No Phil Dougherty MD 07/11/2023 2:54 PM Signed COLORECTAL SURGERY July 11, 2023 Kirt Reyna 53 year old Chief Complaint: anal cancer surveillance History of Present Illness: Kirt Reyna is a 53 year old female presents today for anal cancer surveillance. Last seen 01/16/23 Doing well. No pain. Normal bowel movements. No bleeding PAST MEDICAL HISTORY Diagnosis Date Hiatal hernia POTS (postural orthostatic tachycardia syndrome) POTS (postural orthostatic tachycardia syndrome) 05/27/2022 Vertigo 1970 PAST SURGICAL HISTORY Procedure Laterality Date DANDC, DIAG AND/OR THERAPEUTIC molar OVARIAN CYSTECTOMY UNI/BI Current Outpatient Medications Medication Sig Dispense Refill CALCIUM ORAL Take by mouth once daily. cholecalciferol, vitamin D3, (VITAMIN D3 ORAL) Take by mouth once daily. multivit-min/ferrous fumarate (MULTI VITAMIN ORAL) Take by mouth once daily. ondansetron (ZOFRAN) 8 mg tablet TAKE 1 TABLET BY MOUTH EVERY 8 HOURS NEEDED FOR NAUSEA AND VOMITING 90 tablet 1 Lidocaine-Hydrocortis one-Aloe 2.8-0.55 % gel Use 1 Applicator by RECTAL route twice daily as needed. 100 g 0 multivitamin tablet Take 1 tablet by mouth once daily. acetaminophen/diphenh ydramine (TYLENOL PM EXTRA STRENGTH ORAL) Take 500 mg by mouth as needed. fludrocortisone (FLORINEF) 0.1 mg tablet TAKE 0.5 TABLET BY MOUTH TWICE A DAY No current facility-administered medications for this visit. ALLERGIES Allergen Reactions Penicillin G Unknown Sulfa (Sulfonamide * Unknown FAMILY HISTORY Problem Relation Age of Onset other (cysts [Other]) Mother other (parkinson [Other]) Father Diabetes Father Social History Tobacco Use Smoking status: Never Passive exposure: Never Smokeless tobacco: Never Vaping Use Vaping Use: Never used Substance Use Topics Alcohol use: No Drug use: No Physical Exam: BP 140/65 (BP Site: Right Arm, BP Position: Sitting, BP Cuff Size: Regular Adult) Pulse 85 Temp 36.3 ?C (97.3 ?F) SpO2 100% General Appearance: Well appearing, alert, in no acute distress, well-hydrated, well nourished. Abdomen: no inguinal lymphadenopathy. Anorectal: External exam reveals no lesions. Digital rectal exam reveals no gross blood or masses Bankruptcy Legal Assistant present: Yes, Padmini Garcia Anoscopy: The patient was placed in chest-knee position. After digital exam with a lubricated finger, the scope was easily inserted. Posterior anal canal scar noted. Otherwise normal mucosa was noted. Anoscopy completed. Assessment Assessment and Plan: Kirt Reyna is a 53 year old female with anal cancer status post chemoradiation with no evidence of residual disease. Dr. Michaud is setting up her surveillance imaging. She will return to see me in 4 months for another anoscopy and inguinal lymph node exam Medical Decision Making: Data Reviewed: Tests AND Documents Reviewed/ordered: Review of prior notes from myself Review of Pathology Review of Imaging: CT Abdomen, CT Pelvis, CT Chest Review of Labs: CBC, BMP, LFT Review of Procedures / Tests: Colonoscopy I have independently interpreted: CT Abdomen, CT Pelvis, CT Chest Risk of morbidity, mortality and/or complications of treatment plan: high Phil Dougherty MD Colorectal Surgery Referring Provider: PHIL DOUGHERTY [[id number]] Allergies As of Date: 07/11/2023 Noted Allergy Reaction PENICILLIN G 08/23/2013 16 - Unknown SULFA (SULFONAMIDE ANTIBIOTICS) 08/23/2013 16 - Unknown Date Reviewed: 07/11/2023 Reviewed by: Phil Dougherty MD - Fully Assessed Reason for Visit: anal cancer surveillance [Other] Primary Visit Diagnosis:Encounter for follow-up surveillance of anal cancer [Z08, Z85.048] Prescriptions as of 07/11/2023 - CALCIUM ORAL Take by mouth once daily. - cholecalciferol, vitamin D3, (VITAMIN D3 ORAL) Take by mouth once daily. - multivit-min/ferrous fumarate (MULTI VITAMIN ORAL) Take by mouth once daily. - ondansetron (ZOFRAN) 8 mg tablet TAKE 1 TABLET BY MOUTH EVERY 8 HOURS NEEDED FOR NAUSEA AND VOMITING - Lidocaine-Hydrocortis one-Aloe 2.8-0.55 % gel Use 1 Applicator by RECTAL route twice daily as needed. - multivitamin tablet Take 1 tablet by mouth once daily. - acetaminophen (more content not included)... Normal [facility] KIRT REYNA ([id number]) 1970 F Date Time Provider Department 07/02/23 TORIBIO MICHAUD During your visit today, we recorded the following information about you: Magdalena Laureano 07/02/2023 2:12 PM Signed Patient MRI and CT were denied through insurance stating not medically nessacarry at this time patient is scheduled to see you 07/28 please advise. Toribio Michaud MD 07/04/2023 10:22 AM Signed Did it give a timeframe for the denial? [facility] recommends imaging annually for the first three years post treatment after anal cancer. Her last imaging was in September so if they just want us to re-order it for September, that's fine. Thanks! Magdalena Valerio 07/09/2023 7:42 AM Signed Do you want me to try for an appeal? Or do you just want to put it to September, I feel like she will probably be approved them givin the time frame. Thanks! Toribio Michaud MD 07/09/2023 11:57 AM Signed Let's reschedule to September and see if it's approved for then. Please let patient know why it's being moved. Thanks! Magdalena Vaelrio 07/09/2023 1:02 PM Signed Called patient made her aware of scans information and told her I would keep her posted closer to the date for r/s thank you Marleen/Ang keeping you in the loop for this, thanks! Allergies As of Date: 07/02/2023 Noted Allergy Reaction PENICILLIN G 08/23/2013 16 - Unknown SULFA (SULFONAMIDE ANTIBIOTICS) 08/23/2013 16 - Unknown Date Reviewed: 01/16/2023 Reviewed by: Phil Dougherty MD - Fully Assessed Reason for Visit: FYI-No Action Needed [265] Prescriptions as of 07/09/2023 - CALCIUM ORAL Take by mouth once daily. - cholecalciferol, vitamin D3, (VITAMIN D3 ORAL) Take by mouth once daily. - multivit-min/ferrous fumarate (MULTI VITAMIN ORAL) Take by mouth once daily. - ondansetron (ZOFRAN) 8 mg tablet TAKE 1 TABLET BY MOUTH EVERY 8 HOURS NEEDED FOR NAUSEA AND VOMITING - Lidocaine-Hydrocortis one-Aloe 2.8-0.55 % gel Use 1 Applicator by RECTAL route twice daily as needed. - multivitamin tablet Take 1 tablet by mouth once daily. - acetaminophen/diphenh ydramine (TYLENOL PM EXTRA STRENGTH ORAL) Take 500 mg by mouth as needed. - fludrocortisone (FLORINEF) 0.1 mg tablet TAKE 0.5 TABLET BY MOUTH TWICE A DAY Meds Comments as of 04/28/2023: Tumeric Problem List As Of Date 07/02/2023 Noted Resolved Hiatal hernia [K44.9] Vertigo [R42] Anal cancer (HCC) [C21.0] 05/27/2022 POTS (postural orthostatic tachycardia syndrome*05/27/2022 Encounter Status:Closed by MAGDALENA LAUREANO on 07/09/23 [facility] Cristian 05-27-2023 CNP Telephone ([facility]) KIRT REYNA ([id number]) 1970 F Date Time Provider Department 05/27/23 PHIL DOUGHERTY During your visit today, we recorded the following information about you: Andie Curry 05/27/2023 3:33 PM Signed LVM for patient regarding the need to reschedule Colorectal appt with Dr. Dougherty on 05/29/2023. Provider not longer comes to Porphyrio message sent. Allergies As of Date: 05/27/2023 Noted Allergy Reaction PENICILLIN G 08/23/2013 16 - Unknown SULFA (SULFONAMIDE ANTIBIOTICS) 08/23/2013 16 - Unknown Date Reviewed: 01/16/2023 Reviewed by: Phil Dougherty MD - Fully Assessed Reason for Visit: Appointment [186] Prescriptions as of 05/30/2023 - CALCIUM ORAL Take by mouth once daily. - cholecalciferol, vitamin D3, (VITAMIN D3 ORAL) Take by mouth once daily. - multivit-min/ferrous fumarate (MULTI VITAMIN ORAL) Take by mouth once daily. - ondansetron (ZOFRAN) 8 mg tablet TAKE 1 TABLET BY MOUTH EVERY 8 HOURS NEEDED FOR NAUSEA AND VOMITING - Lidocaine-Hydrocortis one-Aloe 2.8-0.55 % gel Use 1 Applicator by RECTAL route twice daily as needed. - multivitamin tablet Take 1 tablet by mouth once daily. - acetaminophen/diphenh ydramine (TYLENOL PM EXTRA STRENGTH ORAL) Take 500 mg by mouth as needed. - fludrocortisone (FLORINEF) 0.1 mg tablet TAKE 0.5 TABLET BY MOUTH TWICE A DAY Meds Comments as of 04/28/2023: Tumeric Problem List As Of Date 05/27/2023 Noted Resolved Hiatal hernia [K44.9] Vertigo [R42] Anal cancer (HCC) [C21.0] 05/27/2022 POTS (postural orthostatic tachycardia syndrome*05/27/2022 Encounter Status:Closed by ANDIE CURRY on 05/30/23 Normal [facility] 25(OH)D3 SerPl-Cleoon 2022 25-hydroxyvitamin D3 [Mass/Vol] 50.5 ng/mL Normal 31.0-80.0 [facility] Comment on above: Order Comment: Speci men Type: BLOOD SPECIMENOrdering Facility: [facility] Address: [address] [place] [address] Result Comment: Clas sification of 25 [place] Vitamin D status: Deficiency/Insufficiency: < or = 30 ng/ml. Sufficiency/Optimal Levels: 31-80 ng/mL Toxicity: > 100 ng/mL. Test performed by chemiluminescent immunoassay. Performed By: #### 1 989-3 ####[facility] LABCLIA [id number] [facility] [id number] [address] [place] CBC W Auto Differential pane l (Bld)on 04-28-2023 Basophils (Bld) [#/Vol] 10*3/uL Normal <0.11 [facility] Comment on above: Order Comment: Speci men Type: BLOOD SPECIMENOrdering Facility: [facility] Address: [address] [place] [address] Performed By: #### 5 7021-8 ####[facility] LABCLIA [id number] [place] [address] Basophils/100 WBC (Bld) 0.2 % Normal [facility] Comment on above: Order Comment: Speci men Type: BLOOD SPECIMENOrdering Facility: [facility] Address: [address] [place] [address] Performed By: #### 5 7021-8 ####[facility] LABCLIA [id number] [place] [address] Differential cell count method Nom (Bld) Auto Normal [facility] Comment on above: Order Comment: Speci men Type: BLOOD SPECIMENOrdering Facility: [facility] Address: [address] [place] [address] Performed By: #### 5 7021-8 ####[facility] LABCLIA [id number] [place] [address] Eosinophils (Bld) [#/Vol] 0.13 10*3/uL Normal <0.46 [facility] Comment on above: Order Comment: Speci men Type: BLOOD SPECIMENOrdering Facility: [facility] Address: [address] [place] [address] Performed By: #### 5 7021-8 ####[facility] LABCLIA [id number] [place] [address] Eosinophils/100 WBC (Bld) 2.9 % Normal [facility] Comment on above: Order Comment: Speci men Type: BLOOD SPECIMENOrdering Facility: [facility] Address: [address] [place] [address] Performed By: #### 5 7021-8 ####[facility] LABCLIA [id number] [place] [address] Erythrocyte distribution width (RBC) [Ratio] 13.2 % Normal 11.5-15.0 [facility] Comment on above: Order Comment: Speci men Type: BLOOD SPECIMENOrdering Facility: [facility] Address: [address] [place] [address] Performed By: #### 5 7021-8 ####[facility] LABCLIA [id number] [place] [address] Hematocrit (Bld) [Volume fraction] 38.2 % Normal 36.0-46.0 [facility] Comment on above: Order Comment: Speci men Type: BLOOD SPECIMENOrdering Facility: [facility] Address: [address] [place] [address] Performed By: #### 5 7021-8 ####[facility] LABCLIA [id number] [place] [address] Hemoglobin (Bld) [Mass/Vol] 12.9 g/dL Normal 11.5-15.5 [facility] Comment on above: Order Comment: Speci men Type: BLOOD SPECIMENOrdering Facility: [facility] Address: [address] [place] [address] Performed By: #### 5 7021-8 ####[facility] LABCLIA [id number] [place] [address] Immature granulocytes (Bld) [#/Vol] 10*3/uL Normal <0.10 [facility] Comment on above: Order Comment: Speci men Type: BLOOD SPECIMENOrdering Facility: [facility] Address: [address] [place] [address] Performed By: #### 5 7021-8 ####[facility] LABCLIA [id number] [place] [address] Immature granulocytes/100 WBC (Bld) 0.2 % Normal [facility] Comment on above: Order Comment: Speci men Type: BLOOD SPECIMENOrdering Facility: [facility] Address: [address] [place] [address] Performed By: #### 5 7021-8 ####[facility] LABCLIA [id number] [place] [address] Lymphocytes (Bld) [#/Vol] 0.94 10*3/uL Low 1.00-4.00 [facility] Comment on above: Order Comment: Speci men Type: BLOOD SPECIMENOrdering Facility: [facility] Address: [address] [place] [address] Performed By: #### 5 7021-8 ####[facility] LABCLIA [id number] [place] [address] Lymphocytes/100 WBC (Bld) 21.0 % Normal [facility] Comment on above: Order Comment: Speci men Type: BLOOD SPECIMENOrdering Facility: [facility] Address: [address] [place] [address] Performed By: #### 5 7021-8 ####[facility] LABCLIA [id number] [place] [address] MCH (RBC) [Entitic mass] 29.9 pg Normal 26.0-34.0 [facility] Comment on above: Order Comment: Speci men Type: BLOOD SPECIMENOrdering Facility: [facility] Address: [address] [place] [address] Performed By: #### 5 7021-8 ####[facility] LABCLIA [id number] [place] [address] MCHC (RBC) [Mass/Vol] 33.8 g/dL Normal 30.5-36.0 [facility] Comment on above: Order Comment: Speci men Type: BLOOD SPECIMENOrdering Facility: [facility] Address: [address] [place] [address] Performed By: #### 5 7021-8 ####[facility] LABIA [id number] [place] [address] MCV (RBC) [Entitic vol] 88.4 fL Normal 80.0-100.0 [facility] Comment on above: Order Comment: Speci men Type: BLOOD SPECIMENOrdering Facility: [facility] Address: [address] [place] [address] Performed By: #### 5 7021-8 ####[facility] LABIA [id number] [place] [address] Monocytes (Bld) [#/Vol] 0.34 10*3/uL Normal <0.87 [facility] Comment on above: Order Comment: Speci men Type: BLOOD SPECIMENOrdering Facility: [facility] Address: [address] [place] [address] Performed By: #### 5 7021-8 ####[facility] LABIA [id number] [place] [address] Monocytes/100 WBC (Bld) 7.6 % Normal [facility] Comment on above: Order Comment: Speci men Type: BLOOD SPECIMENOrdering Facility: [facility] Address: [address] [place] [address] Performed By: #### 5 7021-8 ####[facility] LABCLIA [id number] [place] [address] Neutrophils (Bld) [#/Vol] 3.04 10*3/uL Normal 1.45-7.50 [facility] Comment on above: Order Comment: Speci men Type: BLOOD SPECIMENOrdering Facility: [facility] Address: [address] [place] [address] Performed By: #### 5 7021-8 ####[facility] LABCLIA [id number] [place] [address] Neutrophils/100 WBC (Bld) 68.1 % Normal [facility] Comment on above: Order Comment: Speci men Type: BLOOD SPECIMENOrdering Facility: [facility] Address: [address] [place] [address] Performed By: #### 5 7021-8 ####[facility] LABCLIA [id number] [place] [address] Nucleated RBC (Bld) [#/Vol] 10*3/uL Normal <0.01 [facility] Comment on above: Order Comment: Speci men Type: BLOOD SPECIMENOrdering Facility: [facility] Address: [address] [place] [address] Performed By: #### 5 7021-8 ####[facility] LABCLIA [id number] [place] [address] Nucleated RBC/100 WBC (Bld) [Ratio] 0.0 /100 WBC Normal [facility] Comment on above: Order Comment: Speci men Type: BLOOD SPECIMENOrdering Facility: [facility] Address: [address] [place] [address] Performed By: #### 5 7021-8 ####[facility] LABCLIA [id number] [place] [address] Platelet mean volume (Bld) [Entitic vol] 9.5 fL Normal 9.0-12.7 [facility] Comment on above: Order Comment: Speci men Type: BLOOD SPECIMENOrdering Facility: [facility] Address: [address] [place] [address] Performed By: #### 5 7021-8 ####[facility] LABIA [id number] [place] [address] Platelets (Bld) [#/Vol] 234 10*3/uL Normal 150-400 [facility] Comment on above: Order Comment: Speci men Type: BLOOD SPECIMENOrdering Facility: [facility] Address: [address] [place] [address] Performed By: #### 5 7021-8 ####[facility] LABIA [id number] [place] [address] RBC (Bld) [#/Vol] 4.32 10*6/uL Normal 3.90-5.20 [facility] Comment on above: Order Comment: Speci men Type: BLOOD SPECIMENOrdering Facility: [facility] Address: [address] [place] [address] Performed By: #### 5 7021-8 ####[facility] [id number] [place] [address] WBC (Bld) [#/Vol] 4.47 10*3/uL Normal 3.70-11.00 [facility] Comment on above: Order Comment: Speci men Type: BLOOD SPECIMENOrdering Facility: [facility] Address: [address] [place] [address] Performed By: #### 5 7021-8 ####[facility] [id number] [place] [address] CNOVSPon 04-28-2023 CNOVSP Visit (SP) Office ([facility]) KIRT REYNA ([id number]) 1970 F Date Time Provider Department 04/28/23 2:00 PM PACO BONDS During your visit today, we recorded the following information about you: Temperature Pulse Respiration Blood pressure 97.2 degrees 84/minute 16/minute 155/68 Weight Height 79.8 kg 1.702 m Radha Lunsford MA 04/28/2023 2:02 PM Addendum Patient had a Mammogram but do to dense tissue she has to have an US and more in depth mammogram done. INOCENCIA Camejo Vivek, MD 04/29/2023 8:16 PM Signed NAME: Kirt Reyna CLINIC NO.: [id number] DATE OF SERVICE: April 28, 2023 (Vamshi) Some elements in this clinic note that are critical to medical decision making have been carefully reviewed and included from a prior clinic note dated: October 28, 2022 (Vamshi) Referring Provider: Dr. Phil Dougherty Additional Clinicians involved in Kirt Reyna's care: Dr. Sondra Liu, Dr. Vitaly Vaughn, Dr. 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 Chemo RT started 06/13/2022. Stopped Xeloda pills on 07/01/2022 due to developing POTS symptoms. Good response ~ 1 month following RT. Continued response after treatment conclusion with abbreviated Xeloda. PLAN: RTC in 6 months MRI Pelvis / Rectum and CT chest scans due in July per Dr. Michaud. Labs on return - cbc, cmp - HPI: CASE HISTORY: 02/17/2023 DXA bone density consistent with osteopenia. 10/11/2022 - MRI Rectum - MARKED INTERVAL DECREASE IN SIZE OF ANORECTAL TUMOR, WITH A SMALL FOCUS OF RESIDUAL VIABLE TUMOR REMAINING 08/28/2022 - CT CAP - Subcentimeter right-sided lung nodules, unchanged. 1.4 cm right rectal mass, decreased in conspicuity. 07/01/2022 - CT CAP - Chest sub-cm nodule, Abd/Pelvis - 1.4 cm rectal mass decreased (5.2 cm prior MRI) 06/24/2022 - Xeloda dose reduced to 1000 mg BID M-F d/t intolerance 06/13/2022 - Started chemo/radiation with xeloda 1500 mg BID M-F 05/21/2022 - MRI Rectum: Anorectal tumor invading sphincter and with extension through right lower rectal wall into the mesorectal fat - broad based abutment of iliococcygeus muscle. MR - T3 N0 05/21/2022 - CT CAP: 1.8 cm sclerotic focus in prox right humerus - likely benign, 0.4 cm non-calcified pulmonary nodules, otherwise negative for metastatic disease. 04/24/2022 - Sigmoidoscopy, Dr. Vaughn: Rectal exam revealed a larger rectal mass in the right posterior lateral area, taking up approximately a third of the circumference, measured approximately 3.5 cm. 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 Oncoprotein p16 diffusely (+) 02/20/2022 - Rectal mass identified - delay in subsequent workup due to patient's concern with debilitating POTS. 2019 - POTS diagnosed just as COVID-19 hit. Updated Visit, April 28, 2023: Doing well. However, osteopenia was noted on recent DEXA. Encouraged her to pursue weightbearing exercises. Mammograms and US next week - will follow with sushi chef for exam. Labs stable. Updated Visit, October 28, 2022: Cherie returns and is doing well. Excellent progress on imaging as well as on exam per Dr. Dougherty. Labs stable. Updated Visit, September 04, 2022: Cherie returns to review scans - she is doing very well and very happy with results. Labs are stable. Reviewed images with her. Updated Visit, July 17, 2022: Anorectal region is sore especially after she passes a stool. Finishes scans next week Will restage in 6 weeks Updated Visit, July 10, 2022: Kirt Reyna returns for follow-up. She remains on radiation Friday through Friday. Due to the holidays and whether there has been some delay in treatment. She has 8 more radiation treatments. The Xeloda has been on hold since 07/01/2022. She has made it clear at this time she has no interest in resuming Xeloda. She is worried that the Xeloda is causing a flareup in her POTS. She was having dizziness and an elevated heart rate. She states that her blood pressure is now getting better controlled off of Xeloda. She is having extreme pain to her rectum from the radiation. She denies any blood in her stools. Her stools are now thin in size which she states is from the inflammation from radiation. She has purchased Preparation H with lidocaine. She denies fevers, chills and signs/symptoms of infection. She has the sweats which she states is from starting menopause. Overall, she is doing fairly well today. Updated Visit, July 01, 2022: Cherie returns for follow up. Starting having POTS symptoms on . Was worse over the weekend. (more content not included)... Normal [facility] Comprehensive metabolic 2000 panelon 04-28-2023 Albumin [Mass/Vol] 4.7 g/dL Normal 3.9-4.9 [facility] Comment on above: Order Comment: Speci men Type: BLOOD SPECIMENOrdering Facility: [facility] Address: [address] [place] [address] Performed By: #### 2 4323-8 ####[facility] LABCLIA [id number] [place] [address] ALP [Catalytic activity/Vol] 104 U/L Normal 34-123 [facility] Comment on above: Order Comment: Speci men Type: BLOOD SPECIMENOrdering Facility: [facility] Address: [address] [place] [address] Performed By: #### 2 4323-8 ####[facility] LABCLIA [id number] [place] [address] ALT [Catalytic activity/Vol] 20 U/L Normal 7-38 [facility] Comment on above: Order Comment: Speci men Type: BLOOD SPECIMENOrdering Facility: [facility] Address: [address] [place] [address] Performed By: #### 2 4323-8 ####[facility] LABCLIA [id number] [place] [address] Anion gap [Moles/Vol] 10 mmol/L Normal 9-18 [facility] Comment on above: Order Comment: Speci men Type: BLOOD SPECIMENOrdering Facility: [facility] Address: [address] [place] [address] Performed By: #### 2 4323-8 ####[facility] LABCLIA [id number] [place] [address] AST [Catalytic activity/Vol] 23 U/L Normal 13-35 [facility] Comment on above: Order Comment: Speci men Type: BLOOD SPECIMENOrdering Facility: [facility] Address: [address] [place] [address] Performed By: #### 2 4323-8 ####[facility] LABCLIA [id number] [place] [address] Bilirubin [Mass/Vol] 0.2 mg/dL Normal 0.2-1.3 [facility] Comment on above: Order Comment: Speci men Type: BLOOD SPECIMENOrdering Facility: [facility] Address: [address] [place] [address] Performed By: #### 2 4323-8 ####[facility] LABCLIA [id number] [place] [address] Calcium [Mass/Vol] 9.7 mg/dL Normal 8.5-10.2 [facility] Comment on above: Order Comment: Speci men Type: BLOOD SPECIMENOrdering Facility: [facility] Address: [address] [place] [address] Performed By: #### 2 4323-8 ####[facility] LABCLIA [id number] [place] [address] Chloride [Moles/Vol] 101 mmol/L Normal 97-105 [facility] Comment on above: Order Comment: Speci men Type: BLOOD SPECIMENOrdering Facility: [facility] Address: [address] [place] [address] Performed By: #### 2 4323-8 ####[facility] LABCLIA [id number] [place] [address] CO2 [Moles/Vol] 27 mmol/L Normal 22-30 [facility] Comment on above: Order Comment: Speci men Type: BLOOD SPECIMENOrdering Facility: [facility] Address: [address] [place] [address] Performed By: #### 2 4323-8 ####[facility] LABCLIA [id number] [place] [address] Creatinine [Mass/Vol] 0.71 mg/dL Normal 0.58-0.96 [facility] Comment on above: Order Comment: Speci men Type: BLOOD SPECIMENOrdering Facility: [facility] Address: [address] [place] [address] Performed By: #### 2 4323-8 ####[facility] LABCLIA [id number] [place] [address] Creatinine and Glomerular filtration rate.predicted panel (S/P/Bld) 101 mL/min/1.73m??? Normal >=60 [facility] Comment on above: Order Comment: Speci men Type: BLOOD SPECIMENOrdering Facility: [facility] Address: [address] [place] [address] Result Comment: Alma mated Glomerular Filtration Rate (eGFR) is calculated using the 2020 CKD-EPI creatinine equation. This equation utilizes serum creatinine, sex, and age as parameters. The creatinine assay has traceable calibration to isotope dilution-mass spectrometry. Refer to KDIGO guidelines for clinical interpretation. In patients with unstable renal function, e.g. those with acute kidney injury, the eGFR may not accurately reflect actual GFR. Performed By: #### 2 4323-8 ####[facility] LABCLIA [id number] [place] [address] Glucose [Mass/Vol] 119 mg/dL High 74-99 [facility] Comment on above: Order Comment: Speci men Type: BLOOD SPECIMENOrdering Facility: [facility] Address: [address] [place] [address] Result Comment: The [place] [employer] (ADA) provides guidance for cutoff values for fasting glucose and random glucose. The ADA defines fasting as no caloric intake for at least 8 hours. Fasting plasma glucose results between 100 to 125 mg/dL indicate increased risk for diabetes (prediabetes). Fasting plasma glucose results greater than or equal to 126 mg/dL meet the criteria for diagnosis of diabetes. In the absence of unequivocal hyperglycemia, results should be confirmed by repeat testing. In a patient with classic symptoms of hyperglycemia or hyperglycemic crisis, random plasma glucose results greater than or equal to 200 mg/dL meet the criteria for diagnosis of diabetes. Reference: Standards of Medical Care in Diabetes 2016, [place] [employer]. Diabetes Care. 2016.39(Suppl 1). Performed By: #### 2 4323-8 ####[facility] LABCLIA [id number] [place] [address] Potassium [Moles/Vol] 3.6 mmol/L Low 3.7-5.1 [facility] Comment on above: Order Comment: Speci men Type: BLOOD SPECIMENOrdering Facility: [facility] Address: [address] [place] [address] Performed By: #### 2 4323-8 ####[facility] LABCLIA [id number] [place] [address] Protein [Mass/Vol] 7.6 g/dL Normal 6.3-8.0 [facility] Comment on above: Order Comment: Speci men Type: BLOOD SPECIMENOrdering Facility: [facility] Address: [address] [place] [address] Performed By: #### 2 4323-8 ####[facility] LABCLIA [id number] [place] [address] Sodium [Moles/Vol] 138 mmol/L Normal 136-144 [facility] Comment on above: Order Comment: Speci men Type: BLOOD SPECIMENOrdering Facility: [facility] Address: [place] [address] Performed By: #### 2 4323-8 ####[facility] LABCLIA [id number] [place] [address] Urea nitrogen [Mass/Vol] 19 mg/dL Normal 7-21 [facility] Comment on above: Order Comment: Speci men Type: BLOOD SPECIMENOrdering Facility: [facility] Address: [address] [place] [id number] Performed By: #### 2 4323-8 ####[facility] LABCLIA [id number] [place] [address] [facility] ([id number]) 1970 F Date Time Provider Department 02/27/23 TORIBIO MICHAUD During your visit today, we recorded the following information about you: Eliza Ceballos RN 02/27/2023 11:40 AM Signed Pt called in requesting results of dexa scan. Dr Michaud- please advise. Results scanned in under xray. Unsure how to interpret for patient. BLAIR Martinez Angela, RN 02/27/2023 2:[address] Michaud request, pt was notified of report showing osteopenia in L Hip. Report faxed to PCP, DR Liu. Pt will follow up with him for any reccomendations. Eliza Ceballos RN Allergies As of Date: 02/27/2023 Noted Allergy Reaction PENICILLIN G 08/23/2013 16 - Unknown SULFA (SULFONAMIDE ANTIBIOTICS) 08/23/2013 16 - Unknown Date Reviewed: 01/16/2023 Reviewed by: Phil Dougherty MD - Fully Assessed Reason for Visit: Results [95] Prescriptions as of 02/27/2023 - ondansetron (ZOFRAN) 8 mg tablet TAKE 1 TABLET BY MOUTH EVERY 8 HOURS NEEDED FOR NAUSEA AND VOMITING - Lidocaine-Hydrocortis one-Aloe 2.8-0.55 % gel Use 1 Applicator by RECTAL route twice daily as needed. - multivitamin tablet Take 1 tablet by mouth once daily. - acetaminophen/diphenh ydramine (TYLENOL PM EXTRA STRENGTH ORAL) Take 500 mg by mouth as needed. - fludrocortisone (FLORINEF) 0.1 mg tablet TAKE 0.5 TABLET BY MOUTH TWICE A DAY Problem List As Of Date 02/27/2023 Noted Resolved Hiatal hernia [K44.9] Vertigo [R42] Anal cancer (HCC) [C21.0] 05/27/2022 POTS (postural orthostatic tachycardia syndrome*05/27/2022 Encounter Status:Closed by ELIZA CEBALLOS on 02/27/23 [facility] 02-10-2023 CNPN Telephone (RADTSA) KIRT REYNA ([id number]) 1970 F Date Time Provider Department 02/10/23 TORIBIO MICHAUD During your visit today, we recorded the following information about you: Eliza Ceballos RN 02/10/2023 1:34 PM Signed Pt called in requesting dexa scan ordered and lab work. She states that she has been having a lot of achiness in her bones. She reports this in her hips/low back/knees/top of feet AND thumbs. She is wondering if this could be from being put in to menopause. She stated that she was told at one point that a dexa scan may need to be ordered to look at her bones. She is also wanting to get labs done to check her blood counts and to check for any vitamin deficiencies. She specifically wants to get a vitamin D Level checked. Dr Michaud- please advise. Would you like to order these tests or would you prefer for Dr Bonds to evaluate these questions? BLAIR Martinez Angela, RN 02/10/2023 1:32 PM Signed BONE MINERAL DENSITY PATIENT INSTRUCTIONS Bone mineral density testing measures the amount of calcium in certain parts of your bones. This information determines how strong your bones are. The test is used to detect osteoporosis, a disease in which the bone's mineral content and density are low, increasing a person's risk of fractures. The lumbar spine (lower back) and the hip are the skeletal sites usually examined. For the test, remember that: 1. You cannot take this test if you are . 2. Eat a normal diet on the day of the test. 3. Take your medications as you normally would. 4. DO NOT take calcium supplements (such as Tums) for 24 hours before the test. 5. On the day of the test, leave valuables (jewelry or credit cards) at home. 6. The test should be performed prior to oral, rectal or IV contrast studies, or at least 7 days after any of these studies. For the test, you may be asked to wear a hospital gown. You will lie on your back, on a padded table, in a comfortable position. Generally, you can resume your usual activities immediately. Toribio Michaud MD 02/12/2023 5:34 AM Signed Will go ahead and order the DXA scan and add a Vitamin D level to her next blood draw. Thanks! Eliza Vaughan RN 02/12/2023 9:02 AM Signed Pt was notified. PSS- please contact pt and arrange Dexa at [facility] per pt request. BLAIR Martinez Tiffany 02/12/2023 9:10 AM Signed Called [facility] to schedule appt left message Magdalena Laureano 02/12/2023 9:26 AM Signed Patient is scheduled at [facility] Friday[facility] 17 she is aware of appts Allergies As of Date: 02/10/2023 Noted Allergy Reaction PENICILLIN G 08/23/2013 16 - Unknown SULFA (SULFONAMIDE ANTIBIOTICS) 08/23/2013 16 - Unknown Date Reviewed: 01/16/2023 Reviewed by: Phil Dougherty MD - Fully Assessed Reason for Visit: Patient Question [1477] Primary Visit Diagnosis:Encounter for screening for osteoporosis [Z13.820] Other Visit Diagnoses:Symptomatic menopausal or female climacteric states [N95.1] Rectal cancer (HCC) [C20] Order(s):DXA-AXIAL SKELETON [8870781] Order #: [id number] FUTURE VITAMIN D 25 HYDROXY [SQVITD] Order #: [id number] FUTURE Prescriptions as of 02/13/2023 - ondansetron (ZOFRAN) 8 mg tablet TAKE 1 TABLET BY MOUTH EVERY 8 HOURS NEEDED FOR NAUSEA AND VOMITING - Lidocaine-Hydrocortis one-Aloe 2.8-0.55 % gel Use 1 Applicator by RECTAL route twice daily as needed. - multivitamin tablet Take 1 tablet by mouth once daily. - acetaminophen/diphenh ydramine (TYLENOL PM EXTRA STRENGTH ORAL) Take 500 mg by mouth as needed. - fludrocortisone (FLORINEF) 0.1 mg tablet TAKE 0.5 TABLET BY MOUTH TWICE A DAY Problem List As Of Date 02/10/2023 Noted Resolved Hiatal hernia [K44.9] Vertigo [R42] Anal cancer (HCC) [C21.0] 05/27/2022 POTS (postural orthostatic tachycardia syndrome*05/27/2022 Other instructions from your clinician: BONE MINERAL DENSITY PATIENT INSTRUCTIONS Bone mineral density testing measures the amount of calcium in certain parts of your bones. This information determines how strong your bones are. The test is used to detect osteoporosis, a disease in which the bone's mineral content and density are low, increasing a person's risk of fractures. The lumbar spine (lower back) and the hip are the skeletal sites usually examined. For the test, remember that: 1. You cannot take this test if you are . 2. Eat a normal diet on the day of the test. 3. Take your medications as you normally would. 4. DO NOT take calcium supplements (such as Tums) for 24 hours before the test. 5. On the day of the test, leave valuables (jewelry or credit cards) at home. 6. The test should be performed prior to oral, rectal or IV contrast studies, or at least 7 days after any of these studies. (more content not included)... Normal [facility] CNOVon 01-16-2023 CNOV Office Visit (CORSAV ) KIRT REYNA ([id number]) 1970 F Date Time Provider Department 01/16/23 3:20 PM PHIL DOUGHERTY During your visit today, we recorded the following information about you: Pulse Blood pressure Weight 78/minute 138/75 78 kg Phil Dougherty MD 01/16/2023 4:04 PM Signed COLORECTAL SURGERY January 16, 2023 Kirt Reyna 52 year old Chief Complaint: anal cancer surveillance History of Present Illness: Kirt Reyna is a 52 year old female presents today for anal cancer surveillance. Last seen 10/17/22 Radiation oncology - Dr. Michaud Medical oncology - Dr. Bonds She reports she is doing well. She is having some joint pains but otherwise feels well. No change in bowel function. No rectal bleeding PAST MEDICAL HISTORY Diagnosis Date Hiatal hernia POTS (postural orthostatic tachycardia syndrome) POTS (postural orthostatic tachycardia syndrome) 05/27/2022 Vertigo 1970 PAST SURGICAL HISTORY Procedure Laterality Date DANDC, DIAG AND/OR THERAPEUTIC molar OVARIAN CYSTECTOMY UNI/BI Current Outpatient Medications Medication Sig Dispense Refill ondansetron (ZOFRAN) 8 mg tablet TAKE 1 TABLET BY MOUTH EVERY 8 HOURS NEEDED FOR NAUSEA AND VOMITING (Patient not taking: Reported on 10/28/2022) 90 tablet 1 Lidocaine-Hydrocortis one-Aloe 2.8-0.55 % gel Use 1 Applicator by RECTAL route twice daily as needed. (Patient not taking: Reported on 10/28/2022) 100 g 0 multivitamin tablet Take 1 tablet by mouth once daily. acetaminophen/diphenh ydramine (TYLENOL PM EXTRA STRENGTH ORAL) Take 500 mg by mouth as needed. (Patient not taking: Reported on 10/28/2022) fludrocortisone (FLORINEF) 0.1 mg tablet TAKE 0.5 TABLET BY MOUTH TWICE A DAY No current facility-administered medications for this visit. ALLERGIES Allergen Reactions Penicillin G Unknown Sulfa (Sulfonamide * Unknown FAMILY HISTORY Problem Relation Age of Onset other (cysts [Other]) Mother other (parkinson [Other]) Father Diabetes Father Social History Tobacco Use Smoking status: Never Passive exposure: Never Smokeless tobacco: Never Vaping Use Vaping Use: Never used Substance Use Topics Alcohol use: No Drug use: No Physical Exam: BP 138/75 Pulse 78 Wt 78 kg (172 lb) BMI 26.93 kg/m? General Appearance: Well appearing, alert, in no acute distress, well-hydrated, well nourished. Abdomen: no inguinal lymphadenopathy Anorectal: External exam reveals no lesions. Digital rectal exam reveals no gross blood or masses Bankruptcy Legal Assistant present: Yes, Jenn Anoscopy: The patient was placed in chest-knee position. After digital exam with a lubricated finger, the scope was easily inserted. Posterior scar noted. Otherwise normal mucosa was noted. Anoscopy completed. Assessment Assessment and Plan: Kirt Reyna is a 52 year old female with anal cancer status post chemoradiation with sustained complete anoscopic response. Her last imaging test also showed good response. She will return to see me in 4 months for another inguinal lymph node exam as well as a anoscopy. Dr. Michaud has ordered her next set of imaging tests and she will continue to follow with him as well Medical Decision Making: Data Reviewed: Tests AND Documents Reviewed/ordered: Review of prior notes from Dr. Michaud Review of Pathology Review of Imaging: CT Abdomen, MRI Pelvis, CT Chest Review of Labs: CBC, BMP, LFT, Albumin I have independently interpreted: CT Abdomen, MRI Pelvis, CT Chest Risk of morbidity, mortality and/or complications of treatment plan: high Phil Dougherty MD Colorectal Surgery Allergies As of Date: 01/16/2023 Noted Allergy Reaction PENICILLIN G 08/23/2013 16 - Unknown SULFA (SULFONAMIDE ANTIBIOTICS) 08/23/2013 16 - Unknown Date Reviewed: 01/16/2023 Reviewed by: Phil Dougherty MD - Fully Assessed Reason for Visit: Established Patient [175] Cmt: 3 month follow up , anal cancer surveillance Primary Visit Diagnosis:Encounter for follow-up surveillance of anal cancer [Z08, Z85.048] Prescriptions as of 01/16/2023 - ondansetron (ZOFRAN) 8 mg tablet TAKE 1 TABLET BY MOUTH EVERY 8 HOURS NEEDED FOR NAUSEA AND VOMITING - Lidocaine-Hydrocortis one-Aloe 2.8-0.55 % gel Use 1 Applicator by RECTAL route twice daily as needed. - multivitamin tablet Take 1 tablet by mouth once daily. - acetaminophen/diphenh ydramine (TYLENOL PM EXTRA STRENGTH ORAL) Take 500 mg by mouth as needed. - fludrocortisone (FLORINEF) 0.1 mg tablet TAKE 0.5 TABLET BY MOUTH TWICE A DAY Problem List As Of Date 01/16/2023 Noted Resolved Hiatal hernia [K44.9] Vertigo [R42] Anal cancer (HCC) [C21.0] 05/27/2022 POTS (postural orthostatic tachycardia syndrome*05/27/2022 Encounter Status:Closed by PHIL DOUGHERTY on 01/16/23 Normal [facility] MRI RECTUM WO/W IVCONon 03-3 MRI RECTUM WO/W IVCON * * *Final Report* * * DATE OF EXAM: Oct 11 2022 4:47PM LUM 0754 - MRI RECTUM WO/W IVCON / PROCEDURE REASON: Malignant neoplasm of anus (HCC) * * * * Physician Interpretation * * * * MRI OF THE PELVIS WITHOUT AND WITH CONTRAST: RECTAL CANCER RESTAGING CLINICAL HISTORY: Rectal Cancer RESTAGING Pretreatment Tumor Staging: T3 N0 Rectal tumor histology: Squamous cell carcinoma Prior chemotherapy or radiation: Yes Other: COMPARISON: 05/21/2022 TECHNIQUE: Magnet: Siemens 3V [employer] 1.5T scanner. Multiplanar MRI with multiple sequences before and after contrast. Contrast: IV: 16 ML ml of Dotarem Other: 60CC RECTAL GEL ml of : ml of RESULT: TREATED PRIMARY TUMOR CHARACTERISTICS (Compare to pre-treatment): DWI (with associated low ADC) ? restricted diffusion and low ADC in tumor or tumor bed: Present, improved from prior. Single tiny focus of restricted diffusion remains (10:13 and 9:13). MRI-T2W: Mixed dark T2/scar and intermediate signal. T2 bright mucin (cannot distinguish between cellular and acellular mucin): Absent. Description: Predominantly T2 dark scar, with a small focus of T2 intermediate signal in the right posterolateral anal canal (7:15), suggestive of residual viable tumor. Distance of the inferior margin of treated tumor to the anal verge: 2.6 cm (2:22) Distance of the inferior margin to the top of sphincter complex/anorectal junction: 0 cm (2:22) Relationship to anterior peritoneal reflection: Below Craniocaudal length: 3.5 cm (2:22) Pre-treatment craniocaudal length: 5.2 cm Tumor location: Anal/Low rectum (0-5 cm) Maximal wall thickness: 0.9 cm (6:22) Pre-treatment wall thickness: 2.1 cm Invasion of anal sphincter complex: Invades IAS + ISS + extends into or through external sphincter. Anal canal involvement: Upper and mid anal canal. TUMOR DEPOSITS AND EXTRAMURAL VASCULAR INVASION (EMVI): Tumor deposits:(separate from metastatic lymph nodes): No. EMVI: No (none evident pre-treatment). MESORECTAL FASCIA (MRF): Shortest distance of extraluminal part of the tumor to MRF: Residual viable tumor does not extend into the mesorectal fat. Tumor extension through the peritonealized portion of the rectum into peritoneal fat: No extension into peritoneal fat. Is there a separate tumor deposit, LN or EMVI threatening (?1mm and ?2 mm) or invading (< 1 mm) the MRF? No. Comments: Not applicable. T4 disease interval change: Not applicable. POST-TREATMENT TUMOR REGRESSION: mrTRG: Not applicable (squamous cell carcinoma). LYMPH NODES: Mesorectal/superior rectal lymph nodes and/or tumor deposits: N0 (no visible lymph nodes/deposits or only < 5 mm short axis) Suspicious extra mesorectal lymph nodes: None. OTHER FINDINGS: None. The study was interpreted by Dr Trevizo, a member of the rectal cancer multidisciplinary tumor board. IMPRESSION: MARKED INTERVAL DECREASE IN SIZE OF ANORECTAL TUMOR, WITH A SMALL FOCUS OF RESIDUAL VIABLE TUMOR REMAINING. NO PELVIC LYMPHADENOPATHY. Receiving And Processing Supervisor: PSCB Transcribe Date/Time: Oct 11 2022 5:09P Dictated by : DIMA TREVIZO MD This examination was interpreted and the report reviewed and electronically signed by: DIMA TREVIZO MD on Oct 11 2022 5:39PM EST [id number] N [facility] NURSING PROGon 10-11-2022 NURSING PROG HNO ID: [id number] Author: Melissa Vazquez RN Service: Nursing Author Type: Registered Nurse Type: Nursing Progress Note Filed: 10/11/2022 2:45 PM Note Text: Radiology Service Progress Note DATE OF SERVICE: October 11, 2022 TIME: 2:45 PM PATIENT WEIGHT: 173 LBS PATIENT IDENTITY VERIFICATION COMPLETED USING TWO (2) STANDARD IDENTIFIERS: Name and Date of confirmed by patient verbally and Name and Date of confirmed by identification band. FALL SCREENING: Has the patient had 2 falls in the last year or 1 fall with injury or currently using an Ambulatory Assistive Device (Walker, Cane, Wheelchair, Crutches, etc.)? No PATIENT GENDER DATA: Female. status: : No status: NO. ALLERGIES: Reviewed and unchanged CONTRAST ALLERGY: No EXAM: MRI - CONTRAST TYPE: GROUP II IV SITE: Ambulatory: A peripheral IV was started in the Right antecubital site with a Angio cath: 22 gauge.diffusic IV SITE APPEARANCE: Clean,Dry and Intact SIGNATURE: Melissa Vazquez RN PATIENT NAME: Kirt Reyna DATE: October 11, 2022 TIME: 2:45 PM [facility] Consultation Noteon 09-04-19 Consultation Note [id number]:127 Normal [facility] CBC panel Auto (Bld)on 08-01 Erythrocyte distribution width (RBC) [Ratio] 13.6 % 11.5 - 15.0 % [facility] Hematocrit (Bld) [Volume fraction] 38.1 % 36.0 - 46.0 % [facility] Hemoglobin (Bld) [Mass/Vol] 12.7 g/dL 11.5 - 15.5 g/dL [facility] MCH (RBC) [Entitic mass] 29.9 pg 26.0 - 34.0 pg [facility] MCHC (RBC) [Mass/Vol] 33.3 g/dL 30.5 - 36.0 g/dL [facility] MCV (RBC) [Entitic vol] 89.6 fL 80.0 - 100.0 fL [facility] Nucleated RBC (Bld) [#/Vol] <0.01 k/uL [facility] Platelet mean volume (Bld) [Entitic vol] 9.6 fL 9.0 - 12.7 fL [facility] Platelets (Bld) [#/Vol] 224 10*3/uL 150 - 400 k/uL [facility] RBC (Bld) [#/Vol] 4.25 10*6/uL 3.90 - 5.2 0 m/uL [facility] WBC (Bld) [#/Vol] 5.32 10*3/uL 3.70 - 11. 00 k/uL [facility] Comprehensive metabolic 2000 panelon 08-01-2022 Albumin [Mass/Vol] 4.6 g/dL 3.9 - 4.9 g/dL [facility] ALP [Catalytic activity/Vol] 88 U/L 34 - 123 U/L [facility] ALT [Catalytic activity/Vol] 19 U/L 7 - 38 U/L [facility] Anion gap [Moles/Vol] 10 mmol/L 9 - 18 mmol/L [facility] AST [Catalytic activity/Vol] 20 U/L 13 - 35 U/L [facility] Bilirubin [Mass/Vol] 0.2 mg/dL 0.2 - 1 .3 mg/dL [facility] Calcium [Mass/Vol] 9.5 mg/dL 8.5 - 10. 2 mg/dL [facility] Chloride [Moles/Vol] 100 mmol/L 97 - 10 5 mmol/L [facility] CO2 [Moles/Vol] 27 mmol/L 22 - 30 mmol/L [facility] Creatinine [Mass/Vol] 0.62 mg/dL 0.58 - 0.96 mg/dL [facility] Estimated Glomerular Filtration Rate 107 mL/min/1.73m >=60 mL/min/1.73m [facility] Glucose [Mass/Vol] 104 mg/dL High 74 - 99 mg/dL [facility] Potassium [Moles/Vol] 3.9 mmol/L 3.7 - 5.1 mmol/L [facility] Protein [Mass/Vol] 7.8 g/dL 6.3 - 8.0 g/dL [facility] Sodium [Moles/Vol] 137 mmol/L 136 - 144 mmol/L [facility] Urea nitrogen [Mass/Vol] 17 mg/dL 7 - 21 mg/dL [facility] CBC W Auto Differential pane l (Bld)on 07-17-2022 Basophils (Bld) [#/Vol] <0.11 k/uL [facility] Basophils/100 WBC (Bld) 0.2 % [facility] Differential cell count method Nom (Bld) Auto [facility] Eosinophils (Bld) [#/Vol] 0.23 10*3/uL <0.46 k/uL [facility] Eosinophils/100 WBC (Bld) 3.9 % [facility] Erythrocyte distribution width (RBC) [Ratio] 13.2 % 11.5 - 15.0 % [facility] Hematocrit (Bld) [Volume fraction] 36.5 % 36.0 - 46.0 % [facility] Hemoglobin (Bld) [Mass/Vol] 12.1 g/dL 11.5 - 15.5 g/dL [facility] Immature granulocytes (Bld) [#/Vol] <0.10 k/uL [facility] Immature granulocytes/100 WBC (Bld) 0.2 % [facility] Lymphocytes (Bld) [#/Vol] 0.50 10*3/uL Low 1.00 - 4.00 k/uL [facility] Lymphocytes/100 WBC (Bld) 8.4 % [facility] MCH (RBC) [Entitic mass] 29.8 pg 26.0 - 34.0 pg [facility] MCHC (RBC) [Mass/Vol] 33.2 g/dL 30.5 - 36.0 g/dL [facility] MCV (RBC) [Entitic vol] 89.9 fL 80.0 - 100.0 fL [facility] Monocytes (Bld) [#/Vol] 0.39 10*3/uL <0.87 k/uL [facility] Monocytes/100 WBC (Bld) 6.6 % [facility] Neutrophils (Bld) [#/Vol] 4.81 10*3/uL 1.45 - 7.50 k/uL [facility] Neutrophils/100 WBC (Bld) 80.7 % [facility] Nucleated RBC (Bld) [#/Vol] <0.01 k/uL [facility] Nucleated RBC/100 WBC (Bld) [Ratio] 0.0 /100 WBC [facility] Platelet mean volume (Bld) [Entitic vol] 9.2 fL 9.0 - 12.7 fL [facility] Platelets (Bld) [#/Vol] 237 10*3/uL 150 - 400 k/uL [facility] RBC (Bld) [#/Vol] 4.06 10*6/uL 3.90 - 5.2 0 m/uL [facility] WBC (Bld) [#/Vol] 5.95 10*3/uL 3.70 - 11. 00 k/uL [facility] Comprehensive metabolic 2000 panelon 07-17-2022 Albumin [Mass/Vol] 4.5 g/dL 3.9 - 4.9 g/dL [facility] ALP [Catalytic activity/Vol] 86 U/L 34 - 123 U/L [facility] ALT [Catalytic activity/Vol] 18 U/L 7 - 38 U/L [facility] Anion gap [Moles/Vol] 9 mmol/L 9 - 18 mmol/L [facility] AST [Catalytic activity/Vol] 19 U/L 13 - 35 U/L [facility] Bilirubin [Mass/Vol] 0.2 mg/dL 0.2 - 1 .3 mg/dL [facility] Calcium [Mass/Vol] 9.4 mg/dL 8.5 - 10. 2 mg/dL [facility] Chloride [Moles/Vol] 101 mmol/L 97 - 10 5 mmol/L [facility] CO2 [Moles/Vol] 28 mmol/L 22 - 30 mmol/L [facility] Creatinine [Mass/Vol] 0.67 mg/dL 0.58 - 0.96 mg/dL [facility] Estimated Glomerular Filtration Rate 105 mL/min/1.73m >=60 mL/min/1.73m [facility] Glucose [Mass/Vol] 109 mg/dL High 74 - 99 mg/dL [facility] Potassium [Moles/Vol] 4.2 mmol/L 3.7 - 5.1 mmol/L [facility] Protein [Mass/Vol] 7.5 g/dL 6.3 - 8.0 g/dL [facility] Sodium [Moles/Vol] 138 mmol/L 136 - 144 mmol/L [facility] Urea nitrogen [Mass/Vol] 17 mg/dL 7 - 21 mg/dL [facility] CBC W Auto Differential pane l (Bld)on 07-10-2022 Basophils (Bld) [#/Vol] <0.11 k/uL [facility] Basophils/100 WBC (Bld) 0.3 % [facility] Differential cell count method Nom (Bld) Auto [facility] Eosinophils (Bld) [#/Vol] 0.16 10*3/uL <0.46 k/uL [facility] Eosinophils/100 WBC (Bld) 2.6 % [facility] Erythrocyte distribution width (RBC) [Ratio] 12.9 % 11.5 - 15.0 % [facility] Hematocrit (Bld) [Volume fraction] 37.4 % 36.0 - 46.0 % [facility] Hemoglobin (Bld) [Mass/Vol] 12.6 g/dL 11.5 - 15.5 g/dL [facility] Immature granulocytes (Bld) [#/Vol] 0.03 10*3/uL <0.10 k/uL [facility] Immature granulocytes/100 WBC (Bld) 0.5 % [facility] Lymphocytes (Bld) [#/Vol] 0.57 10*3/uL Low 1.00 - 4.00 k/uL [facility] Lymphocytes/100 WBC (Bld) 9.4 % [facility] MCH (RBC) [Entitic mass] 30.1 pg 26.0 - 34.0 pg [facility] MCHC (RBC) [Mass/Vol] 33.7 g/dL 30.5 - 36.0 g/dL [facility] MCV (RBC) [Entitic vol] 89.3 fL 80.0 - 100.0 fL [facility] Monocytes (Bld) [#/Vol] 0.49 10*3/uL <0.87 k/uL [facility] Monocytes/100 WBC (Bld) 8.1 % [facility] Neutrophils (Bld) [#/Vol] 4.80 10*3/uL 1.45 - 7.50 k/uL [facility] Neutrophils/100 WBC (Bld) 79.1 % [facility] Nucleated RBC (Bld) [#/Vol] <0.01 k/uL [facility] Nucleated RBC/100 WBC (Bld) [Ratio] 0.0 /100 WBC [facility] Platelet mean volume (Bld) [Entitic vol] 9.4 fL 9.0 - 12.7 fL [facility] Platelets (Bld) [#/Vol] 218 10*3/uL 150 - 400 k/uL [facility] RBC (Bld) [#/Vol] 4.19 10*6/uL 3.90 - 5.2 0 m/uL [facility] WBC (Bld) [#/Vol] 6.07 10*3/uL 3.70 - 11. 00 k/uL [facility] Comprehensive metabolic 2000 panelon 07-10-2022 Albumin [Mass/Vol] 4.5 g/dL 3.9 - 4.9 g/dL [facility] ALP [Catalytic activity/Vol] 97 U/L 34 - 123 U/L [facility] ALT [Catalytic activity/Vol] 18 U/L 7 - 38 U/L [facility] Anion gap [Moles/Vol] 9 mmol/L 9 - 18 mmol/L [facility] AST [Catalytic activity/Vol] 20 U/L 13 - 35 U/L [facility] Bilirubin [Mass/Vol] 0.2 mg/dL 0.2 - 1 .3 mg/dL [facility] Calcium [Mass/Vol] 9.4 mg/dL 8.5 - 10. 2 mg/dL [facility] Chloride [Moles/Vol] 102 mmol/L 97 - 10 5 mmol/L [facility] CO2 [Moles/Vol] 28 mmol/L 22 - 30 mmol/L [facility] Creatinine [Mass/Vol] 0.66 mg/dL 0.58 - 0.96 mg/dL [facility] Estimated Glomerular Filtration Rate 105 mL/min/1.73m >=60 mL/min/1.73m [facility] Glucose [Mass/Vol] 95 mg/dL 74 - 99 mg/dL [facility] Potassium [Moles/Vol] 4.0 mmol/L 3.7 - 5.1 mmol/L [facility] Protein [Mass/Vol] 7.5 g/dL 6.3 - 8.0 g/dL [facility] Sodium [Moles/Vol] 139 mmol/L 136 - 144 mmol/L [facility] Urea nitrogen [Mass/Vol] 19 mg/dL 7 - 21 mg/dL [facility] CBC W Auto Differential pane l (Bld)on 06-24-2022 Basophils (Bld) [#/Vol] <0.11 k/uL [facility] Basophils/100 WBC (Bld) 0.3 % [facility] Differential cell count method Nom (Bld) Auto [facility] Eosinophils (Bld) [#/Vol] 0.11 10*3/uL <0.46 k/uL [facility] Eosinophils/100 WBC (Bld) 3.0 % [facility] Erythrocyte distribution width (RBC) [Ratio] 12.4 % 11.5 - 15.0 % [facility] Hematocrit (Bld) [Volume fraction] 39.1 % 36.0 - 46.0 % [facility] Hemoglobin (Bld) [Mass/Vol] 13.1 g/dL 11.5 - 15.5 g/dL [facility] Immature granulocytes (Bld) [#/Vol] <0.10 k/uL [facility] Immature granulocytes/100 WBC (Bld) 0.5 % [facility] Lymphocytes (Bld) [#/Vol] 0.45 10*3/uL Low 1.00 - 4.00 k/uL [facility] Lymphocytes/100 WBC (Bld) 12.3 % [facility] MCH (RBC) [Entitic mass] 29.9 pg 26.0 - 34.0 pg [facility] MCHC (RBC) [Mass/Vol] 33.5 g/dL 30.5 - 36.0 g/dL [facility] MCV (RBC) [Entitic vol] 89.3 fL 80.0 - 100.0 fL [facility] Monocytes (Bld) [#/Vol] 0.32 10*3/uL <0.87 k/uL [facility] Monocytes/100 WBC (Bld) 8.8 % [facility] Neutrophils (Bld) [#/Vol] 2.74 10*3/uL 1.45 - 7.50 k/uL [facility] Neutrophils/100 WBC (Bld) 75.1 % [facility] Nucleated RBC (Bld) [#/Vol] <0.01 k/uL [facility] Nucleated RBC/100 WBC (Bld) [Ratio] 0.0 /100 WBC [facility] Platelet mean volume (Bld) [Entitic vol] 10.1 fL 9.0 - 12.7 fL [facility] Platelets (Bld) [#/Vol] 186 10*3/uL 150 - 400 k/uL [facility] RBC (Bld) [#/Vol] 4.38 10*6/uL 3.90 - 5.2 0 m/uL [facility] WBC (Bld) [#/Vol] 3.65 10*3/uL Low 3.70 - 11. 00 k/uL [facility] Comprehensive metabolic 2000 panelon 06-24-2022 Albumin [Mass/Vol] 4.5 g/dL 3.9 - 4.9 g/dL [facility] ALP [Catalytic activity/Vol] 88 U/L 34 - 123 U/L [facility] ALT [Catalytic activity/Vol] 15 U/L 7 - 38 U/L [facility] Anion gap [Moles/Vol] 9 mmol/L 9 - 18 mmol/L [facility] AST [Catalytic activity/Vol] 19 U/L 13 - 35 U/L [facility] Bilirubin [Mass/Vol] 0.3 mg/dL 0.2 - 1 .3 mg/dL [facility] Calcium [Mass/Vol] 9.4 mg/dL 8.5 - 10. 2 mg/dL [facility] Chloride [Moles/Vol] 99 mmol/L 97 - 10 5 mmol/L [facility] CO2 [Moles/Vol] 28 mmol/L 22 - 30 mmol/L [facility] Creatinine [Mass/Vol] 0.65 mg/dL 0.58 - 0.96 mg/dL [facility] Estimated Glomerular Filtration Rate 105 mL/min/1.73m >=60 mL/min/1.73m [facility] Glucose [Mass/Vol] 113 mg/dL High 74 - 99 mg/dL [facility] Potassium [Moles/Vol] 4.0 mmol/L 3.7 - 5.1 mmol/L [facility] Protein [Mass/Vol] 7.5 g/dL 6.3 - 8.0 g/dL [facility] Sodium [Moles/Vol] 136 mmol/L 136 - 144 mmol/L [facility] Urea nitrogen [Mass/Vol] 19 mg/dL 7 - 21 mg/dL [facility] CBC W Auto Differential pane l (Bld)on 06-14-2022 Basophils (Bld) [#/Vol] 0.03 10*3/uL <0.11 k/uL [facility] Basophils/100 WBC (Bld) 0.4 % [facility] Differential cell count method Nom (Bld) Auto [facility] Eosinophils (Bld) [#/Vol] 0.08 10*3/uL <0.46 k/uL [facility] Eosinophils/100 WBC (Bld) 1.1 % [facility] Erythrocyte distribution width (RBC) [Ratio] 12.4 % 11.5 - 15.0 % [facility] Hematocrit (Bld) [Volume fraction] 41.7 % 36.0 - 46.0 % [facility] Hemoglobin (Bld) [Mass/Vol] 14.0 g/dL 11.5 - 15.5 g/dL [facility] Immature granulocytes (Bld) [#/Vol] <0.10 k/uL [facility] Immature granulocytes/100 WBC (Bld) 0.1 % [facility] Lymphocytes (Bld) [#/Vol] 1.64 10*3/uL 1.00 - 4.00 k/uL [facility] Lymphocytes/100 WBC (Bld) 22.5 % [facility] MCH (RBC) [Entitic mass] 29.8 pg 26.0 - 34.0 pg [facility] MCHC (RBC) [Mass/Vol] 33.6 g/dL 30.5 - 36.0 g/dL [facility] MCV (RBC) [Entitic vol] 88.7 fL 80.0 - 100.0 fL [facility] Monocytes (Bld) [#/Vol] 0.37 10*3/uL <0.87 k/uL [facility] Monocytes/100 WBC (Bld) 5.1 % [facility] Neutrophils (Bld) [#/Vol] 5.15 10*3/uL 1.45 - 7.50 k/uL [facility] Neutrophils/100 WBC (Bld) 70.8 % [facility] Nucleated RBC (Bld) [#/Vol] <0.01 k/uL [facility] Nucleated RBC/100 WBC (Bld) [Ratio] 0.0 /100 WBC [facility] Platelet mean volume (Bld) [Entitic vol] 10.6 fL 9.0 - 12.7 fL [facility] Platelets (Bld) [#/Vol] 259 10*3/uL 150 - 400 k/uL [facility] RBC (Bld) [#/Vol] 4.70 10*6/uL 3.90 - 5.2 0 m/uL [facility] WBC (Bld) [#/Vol] 7.28 10*3/uL 3.70 - 11. 00 k/uL [facility] Comprehensive metabolic 2000 panelon 06-14-2022 Albumin [Mass/Vol] 4.5 g/dL 3.9 - 4.9 g/dL [facility] ALP [Catalytic activity/Vol] 88 U/L 34 - 123 U/L [facility] ALT [Catalytic activity/Vol] 16 U/L 7 - 38 U/L [facility] Anion gap [Moles/Vol] 10 mmol/L 9 - 18 mmol/L [facility] AST [Catalytic activity/Vol] [facility] Bilirubin [Mass/Vol] 0.3 mg/dL 0.2 - 1 .3 mg/dL [facility] Calcium [Mass/Vol] 9.7 mg/dL 8.5 - 10. 2 mg/dL [facility] Chloride [Moles/Vol] 99 mmol/L 97 - 10 5 mmol/L [facility] CO2 [Moles/Vol] 24 mmol/L 22 - 30 mmol/L [facility] Creatinine [Mass/Vol] 0.68 mg/dL 0.58 - 0.96 mg/dL [facility] Estimated Glomerular Filtration Rate 104 mL/min/1.73m >=60 mL/min/1.73m [facility] Glucose [Mass/Vol] 136 mg/dL High 74 - 99 mg/dL [facility] Potassium [Moles/Vol] 4.1 mmol/L 3.7 - 5.1 mmol/L [facility] Protein [Mass/Vol] 7.7 g/dL 6.3 - 8.0 g/dL [facility] Sodium [Moles/Vol] 133 mmol/L Low 136 - 144 mmol/L [facility] Urea nitrogen [Mass/Vol] 16 mg/dL 7 - 21 mg/dL [facility] Consultation Noteon 06-12-20 Consultation Note [id number]#1 .00CD:127 Normal [facility] CBC W Auto Differential pane l (Bld)on 05-27-2022 Basophils (Bld) [#/Vol] <0.11 k/uL [facility] Basophils/100 WBC (Bld) 0.2 % [facility] Differential cell count method Nom (Bld) Auto [facility] Eosinophils (Bld) [#/Vol] 0.06 10*3/uL <0.46 k/uL [facility] Eosinophils/100 WBC (Bld) 0.7 % [facility] Erythrocyte distribution width (RBC) [Ratio] 12.8 % 11.5 - 15.0 % [facility] Hematocrit (Bld) [Volume fraction] 40.8 % 36.0 - 46.0 % [facility] Hemoglobin (Bld) [Mass/Vol] 13.7 g/dL 11.5 - 15.5 g/dL [facility] Immature granulocytes (Bld) [#/Vol] <0.10 k/uL [facility] Immature granulocytes/100 WBC (Bld) 0.2 % [facility] Lymphocytes (Bld) [#/Vol] 1.43 10*3/uL 1.00 - 4.00 k/uL [facility] Lymphocytes/100 WBC (Bld) 17.4 % [facility] MCH (RBC) [Entitic mass] 30.2 pg 26.0 - 34.0 pg [facility] MCHC (RBC) [Mass/Vol] 33.6 g/dL 30.5 - 36.0 g/dL [facility] MCV (RBC) [Entitic vol] 89.9 fL 80.0 - 100.0 fL [facility] Monocytes (Bld) [#/Vol] 0.35 10*3/uL <0.87 k/uL [facility] Monocytes/100 WBC (Bld) 4.3 % [facility] Neutrophils (Bld) [#/Vol] 6.34 10*3/uL 1.45 - 7.50 k/uL [facility] Neutrophils/100 WBC (Bld) 77.2 % [facility] Nucleated RBC (Bld) [#/Vol] <0.01 k/uL [facility] Nucleated RBC/100 WBC (Bld) [Ratio] 0.0 /100 WBC [facility] Platelet mean volume (Bld) [Entitic vol] 9.9 fL 9.0 - 12.7 fL [facility] Platelets (Bld) [#/Vol] 328 10*3/uL 150 - 400 k/uL [facility] RBC (Bld) [#/Vol] 4.54 10*6/uL 3.90 - 5.2 0 m/uL [facility] WBC (Bld) [#/Vol] 8.22 10*3/uL 3.70 - 11. 00 k/uL [facility] Comprehensive metabolic 2000 panelon 05-27-2022 Albumin [Mass/Vol] 4.6 g/dL 3.9 - 4.9 g/dL [facility] ALP [Catalytic activity/Vol] 87 U/L 34 - 123 U/L [facility] ALT [Catalytic activity/Vol] 14 U/L 7 - 38 U/L [facility] Anion gap [Moles/Vol] 8 mmol/L Low 9 - 18 mmol/L [facility] AST [Catalytic activity/Vol] 22 U/L 13 - 35 U/L [facility] Bilirubin [Mass/Vol] 0.2 mg/dL 0.2 - 1 .3 mg/dL [facility] Calcium [Mass/Vol] 9.1 mg/dL 8.5 - 10. 2 mg/dL [facility] Chloride [Moles/Vol] 99 mmol/L 97 - 10 5 mmol/L [facility] CO2 [Moles/Vol] 29 mmol/L 22 - 30 mmol/L [facility] Creatinine [Mass/Vol] 0.70 mg/dL 0.58 - 0.96 mg/dL [facility] Estimated Glomerular Filtration Rate 104 mL/min/1.73m >=60 mL/min/1.73m [facility] Glucose [Mass/Vol] 128 mg/dL High 74 - 99 mg/dL [facility] Potassium [Moles/Vol] 3.8 mmol/L 3.7 - 5.1 mmol/L [facility] Protein [Mass/Vol] 7.7 g/dL 6.3 - 8.0 g/dL [facility] Sodium [Moles/Vol] 136 mmol/L 136 - 144 mmol/L [facility] Urea nitrogen [Mass/Vol] 16 mg/dL 7 - 21 mg/dL [facility] Pathology Noteon 05-05-2022 Pathology Note [id number]# 1.00CD:127 Normal [facility] CBC W Auto Differential pane l (Bld)on 05-02-2022 Basophils (Bld) [#/Vol] 10*3/uL Normal <0.11 [facility] Comment on above: Order Comment: Speci men Type: BLOOD SPECIMEN Ordering Facility: [facility] Address: [address] [place] [address] Performed By: #### 5 7021-8 #### [facility] CLIA [id number] [address] [place] [address] [place] Basophils/100 WBC (Bld) 0.3 % Normal [facility] Comment on above: Order Comment: Speci men Type: BLOOD SPECIMEN Ordering Facility: [facility] Address: [address] [place] [address] Performed By: #### 5 7021-8 #### [facility] CLIA [id number] [address] [place] [address] [place] Differential cell count method Nom (Bld) Auto Normal [facility] Comment on above: Order Comment: Speci men Type: BLOOD SPECIMEN Ordering Facility: [facility] Address: [address] [place] [address] Performed By: #### 5 7021-8 #### [facility] CLIA [id number] [address] [place] [address] [place] Eosinophils (Bld) [#/Vol] 0.05 10*3/uL Normal <0.46 [facility] Comment on above: Order Comment: Speci men Type: BLOOD SPECIMEN Ordering Facility: [facility] Address: [address] [place] [address] Performed By: #### 5 7021-8 #### [facility] CLIA [id number] [address] [place] [address] [place] Eosinophils/100 WBC (Bld) 0.7 % Normal [facility] Comment on above: Order Comment: Speci men Type: BLOOD SPECIMEN Ordering Facility: [facility] Address: [address] [place] [address] Performed By: #### 5 7021-8 #### [facility] IA [id number] [address] [place] [address] [place] Erythrocyte distribution width (RBC) [Ratio] 12.7 % Normal 11.5-15.0 [facility] Comment on above: Order Comment: Speci men Type: BLOOD SPECIMEN Ordering Facility: [facility] Address: [address] [place] [address] Performed By: #### 5 7021-8 #### [facility] IA [id number] [address] [place] [address] [place] Hematocrit (Bld) [Volume fraction] 43.0 % Normal 36.0-46.0 [facility] Comment on above: Order Comment: Speci men Type: BLOOD SPECIMEN Ordering Facility: [facility] Address: [address] [place] [address] Performed By: #### 5 7021-8 #### [facility] IA [id number] [address] [place] [address] [place] Hemoglobin (Bld) [Mass/Vol] 13.5 g/dL Normal 11.5-15.5 [facility] Comment on above: Order Comment: Speci men Type: BLOOD SPECIMEN Ordering Facility: [facility] Address: [address] [place] [address] Performed By: #### 5 7021-8 #### [facility] IA [id number] [address] [place] [address] [place] Immature granulocytes (Bld) [#/Vol] 10*3/uL Normal <0.10 [facility] Comment on above: Order Comment: Speci men Type: BLOOD SPECIMEN Ordering Facility: [facility] Address: [address] [place], [place] [address] Performed By: #### 5 7021-8 #### [facility] IA [id number] [address] [place] [address] [place] Immature granulocytes/100 WBC (Bld) 0.3 % Normal [facility] Comment on above: Order Comment: Speci men Type: BLOOD SPECIMEN Ordering Facility: [facility] Address: [address] Performed By: #### 5 7021-8 #### [facility] CLIA [id number] [address] [place] [address] [place] Lymphocytes (Bld) [#/Vol] 1.40 10*3/uL Normal 1.00-4.00 [facility] Comment on above: Order Comment: Speci men Type: BLOOD SPECIMEN Ordering Facility: [facility] Address: [address] [place], [place] [address] Performed By: #### 5 7021-8 #### [facility] CLIA [id number] [address] [place] [address] [place] Lymphocytes/100 WBC (Bld) 20.6 % Normal [facility] Comment on above: Order Comment: Speci men Type: BLOOD SPECIMEN Ordering Facility: [facility] Address: [address] [place], [place] [address] Performed By: #### 5 7021-8 #### [facility] CLIA [id number] [address] [place] [address] [place] MCH (RBC) [Entitic mass] 29.2 pg Normal 26.0-34.0 [facility] Comment on above: Order Comment: Speci men Type: BLOOD SPECIMEN Ordering Facility: [facility] Address: [address] [place], [place] [address] Performed By: #### 5 7021-8 #### [facility] CLIA [id number] [address] [place] [address] [place] MCHC (RBC) [Mass/Vol] 31.4 g/dL Normal 30.5-36.0 [facility] Comment on above: Order Comment: Speci men Type: BLOOD SPECIMEN Ordering Facility: [facility] Address: [address] [place], [place] [address] Performed By: #### 5 7021-8 #### [facility] CLIA [id number] [address] [place] [address] [place] MCV (RBC) [Entitic vol] 92.9 fL Normal 80.0-100.0 [facility] Comment on above: Order Comment: Speci men Type: BLOOD SPECIMEN Ordering Facility: [facility] Address: [address] [place] [address] Performed By: #### 5 7021-8 #### [facility] CLIA [id number] [address] [place] [address] [place] Monocytes (Bld) [#/Vol] 0.48 10*3/uL Normal <0.87 [facility] Comment on above: Order Comment: Speci men Type: BLOOD SPECIMEN Ordering Facility: [facility] Address: [address] [place] [address] Performed By: #### 5 7021-8 #### [facility] CLIA [id number] [address] [place] [address] [place] Monocytes/100 WBC (Bld) 7.1 % Normal [facility] Comment on above: Order Comment: Speci men Type: BLOOD SPECIMEN Ordering Facility: [facility] Address: [address] [place] [address] Performed By: #### 5 7021-8 #### [facility] IA [id number] [address] [place] [address] [place] Neutrophils (Bld) [#/Vol] 4.81 10*3/uL Normal 1.45-7.50 [facility] Comment on above: Order Comment: Speci men Type: BLOOD SPECIMEN Ordering Facility: [facility] Address: [address] [place] [address] Performed By: #### 5 7021-8 #### [facility] CLIA [id number] [address] [place] [address] [place] Neutrophils/100 WBC (Bld) 71.0 % Normal [facility] Comment on above: Order Comment: Speci men Type: BLOOD SPECIMEN Ordering Facility: [facility] Address: [address] [place] [address] Performed By: #### 5 7021-8 #### [facility] IA [id number] [address] [place] [address] [place] Nucleated RBC (Bld) [#/Vol] 10*3/uL Normal <0.01 [facility] Comment on above: Order Comment: Speci men Type: BLOOD SPECIMEN Ordering Facility: [facility] Address: [address] [place], [place] [address] Performed By: #### 5 7021-8 #### [facility] IA [id number] [address] [place], [place] [id number] [place] [address] [place] Nucleated RBC/100 WBC (Bld) [Ratio] 0.0 /100 WBC Normal [facility] Comment on above: Order Comment: Speci men Type: BLOOD SPECIMEN Ordering Facility: [facility] Address: [address] [place], [place] [id number] Performed By: #### 5 7021-8 #### [facility] [place] [id number] [place] [address] [place] Platelet mean volume (Bld) [Entitic vol] 10.5 fL Normal 9.0-12.7 [facility] Comment on above: Order Comment: Speci men Type: BLOOD SPECIMEN Ordering Facility: [facility] Address: [address] [place], [place] [id number] Performed By: #### 5 7021-8 #### [facility] [place] [id number] [place] [address] [place] Platelets (Bld) [#/Vol] 305 10*3/uL Normal 150-400 [facility] Comment on above: Order Comment: Speci men Type: BLOOD SPECIMEN Ordering Facility: [facility] Address: [address] [place], [place] [id number] Performed By: #### 5 7021-8 #### [facility] [place] [id number] [place] [address] [place] RBC (Bld) [#/Vol] 4.63 10*6/uL Normal 3.90-5.20 [facility] Comment on above: Order Comment: Speci men Type: BLOOD SPECIMEN Ordering Facility: [facility] Address: [address] [place], [place] [id number] Performed By: #### 5 7021-8 #### [facility] CLIA [id number] [place] [address] [place] WBC (Bld) [#/Vol] 6.78 10*3/uL Normal 3.70-11.00 [facility] Comment on above: Order Comment: Speci men Type: BLOOD SPECIMEN Ordering Facility: [facility] Address: [address] [place] [address] Performed By: #### 5 7021-8 #### [facility] CLIA [id number] [address] [place], [place] [id number] [place] [address] OF [facility] Basophils (Bld) [#/Vol] <0.11 k/uL [facility] Basophils/100 WBC (Bld) 0.3 % [facility] Differential cell count method Nom (Bld) Auto [facility] Eosinophils (Bld) [#/Vol] 0.05 10*3/uL <0.46 k/uL [facility] Eosinophils/100 WBC (Bld) 0.7 % [facility] Erythrocyte distribution width (RBC) [Ratio] 12.7 % 11.5 - 15.0 % [facility] Hematocrit (Bld) [Volume fraction] 43.0 % 36.0 - 46.0 % [facility] Hemoglobin (Bld) [Mass/Vol] 13.5 g/dL 11.5 - 15.5 g/dL [facility] Immature granulocytes (Bld) [#/Vol] <0.10 k/uL [facility] Immature granulocytes/100 WBC (Bld) 0.3 % [facility] Lymphocytes (Bld) [#/Vol] 1.40 10*3/uL 1.00 - 4.00 k/uL [facility] Lymphocytes/100 WBC (Bld) 20.6 % [facility] MCH (RBC) [Entitic mass] 29.2 pg 26.0 - 34.0 pg [facility] MCHC (RBC) [Mass/Vol] 31.4 g/dL 30.5 - 36.0 g/dL [facility] MCV (RBC) [Entitic vol] 92.9 fL 80.0 - 100.0 fL [facility] Monocytes (Bld) [#/Vol] 0.48 10*3/uL <0.87 k/uL [facility] Monocytes/100 WBC (Bld) 7.1 % [facility] Neutrophils (Bld) [#/Vol] 4.81 10*3/uL 1.45 - 7.50 k/uL [facility] Neutrophils/100 WBC (Bld) 71.0 % [facility] Nucleated RBC (Bld) [#/Vol] <0.01 k/uL [facility] Nucleated RBC/100 WBC (Bld) [Ratio] 0.0 /100 WBC [facility] Platelet mean volume (Bld) [Entitic vol] 10.5 fL 9.0 - 12.7 fL [facility] Platelets (Bld) [#/Vol] 305 10*3/uL 150 - 400 k/uL [facility] RBC (Bld) [#/Vol] 4.63 10*6/uL 3.90 - 5.2 0 m/uL [facility] WBC (Bld) [#/Vol] 6.78 10*3/uL 3.70 - 11. 00 k/uL [facility] Comprehensive metabolic 2000 panelon 05-02-2022 Albumin [Mass/Vol] 4.7 g/dL Normal 3.9-4.9 [facility] Comment on above: Order Comment: Speci men Type: BLOOD SPECIMEN Ordering Facility: [facility] Address: [address] [place] [address] Performed By: #### 2 4323-8 #### [facility] CLIA [id number] STATES OF [facility] ALP [Catalytic activity/Vol] 88 U/L Normal 34-123 [facility] Comment on above: Order Comment: Speci men Type: BLOOD SPECIMEN Ordering Facility: [facility] Address: [address] Performed By: #### 2 4323-8 #### [facility] CLIA [id number] [address] [place] [address] [place] ALT [Catalytic activity/Vol] 17 U/L Normal 7-38 [facility] Comment on above: Order Comment: Speci men Type: BLOOD SPECIMEN Ordering Facility: [facility] Address: [address] Performed By: #### 2 4323-8 #### [facility] CLIA [id number] [address] [place] [address] [place] Anion gap [Moles/Vol] 9 mmol/L Normal 9-18 [facility] Comment on above: Order Comment: Speci men Type: BLOOD SPECIMEN Ordering Facility: [facility] Address: [address] [place], [place] [address] Performed By: #### 2 4323-8 #### [facility] CLIA [id number] [address] [place], [place] [id number] [place] [address] [place] AST [Catalytic activity/Vol] 20 U/L Normal 13-35 [facility] Comment on above: Order Comment: Speci men Type: BLOOD SPECIMEN Ordering Facility: [facility] Address: [address] [place], [place] [address] Performed By: #### 2 4323-8 #### [facility] CLIA [id number] [address] [place] [address] [place] Bilirubin [Mass/Vol] 0.3 mg/dL Normal 0.2-1.3 [facility] Comment on above: Order Comment: Speci men Type: BLOOD SPECIMEN Ordering Facility: [facility] Address: [address] [place], [place] [address] Performed By: #### 2 4323-8 #### [facility] CLIA [id number] [address] [place] [address] [place] Calcium [Mass/Vol] 9.5 mg/dL Normal 8.5-10.2 [facility] Comment on above: Order Comment: Speci men Type: BLOOD SPECIMEN Ordering Facility: [facility] Address: [address] [place], [place] [address] Performed By: #### 2 4323-8 #### [facility] CLIA [id number] [address] [place] [address] [place] Chloride [Moles/Vol] 101 mmol/L Normal 97-105 [facility] Comment on above: Order Comment: Speci men Type: BLOOD SPECIMEN Ordering Facility: [facility] Address: [address] [place] [address] Performed By: #### 2 4323-8 #### [facility] CLIA [id number] [address] [place] [address] [place] CO2 [Moles/Vol] 28 mmol/L Normal 22-30 [facility] Comment on above: Order Comment: Speci men Type: BLOOD SPECIMEN Ordering Facility: [facility] Address: [address] [place] [address] Performed By: #### 2 4323-8 #### [facility] IA [id number] [address] [place] Creatinine [Mass/Vol] 0.75 mg/dL Normal 0.58-0.96 [facility] Comment on above: Order Comment: Speci men Type: BLOOD SPECIMEN Ordering Facility: [facility] Address: [address] [place] [address] Performed By: #### 2 4323-8 #### [facility] CLIA [id number] ESTIMATED GLOMERULAR FILTRATION RATE 95 mL/min/1.73m??? Normal >=60 [facility] Comment on above: Order Comment: Speci men Type: BLOOD SPECIMEN Ordering Facility: [facility] Address: [address] [place] [address] Result Comment: Alma mated Glomerular Filtration Rate (eGFR) is calculated using the 2020 CKD-EPI creatinine equation. This equation utilizes serum creatinine, sex, and age as parameters. The creatinine assay has traceable calibration to isotope dilution-mass spectrometry. Refer to KDIGO guidelines for clinical interpretation. In patients with unstable renal function, e.g. those with acute kidney injury, the eGFR may not accurately reflect actual GFR. Performed By: #### 2 4323-8 #### [facility] IA [id number] [address] [place] [address] [place] Glucose [Mass/Vol] 116 mg/dL High 74-99 [facility] Comment on above: Order Comment: Shashi love Type: BLOOD SPECIMEN Ordering Facility: [facility] Address: [address] [place] [address] Result Comment: The [place] [employer] (ADA) provides guidance for cutoff values for fasting glucose and random glucose. The ADA defines fasting as no caloric intake for at least 8 hours. Fasting plasma glucose results between 100 to 125 mg/dL indicate increased risk for diabetes (prediabetes). Fasting plasma glucose results greater than or equal to 126 mg/dL meet the criteria for diagnosis of diabetes. In the absence of unequivocal hyperglycemia, results should be confirmed by repeat testing. In a patient with classic symptoms of hyperglycemia or hyperglycemic crisis, random plasma glucose results greater than or equal to 200 mg/dL meet the criteria for diagnosis of diabetes. Reference: Standards of Medical Care in Diabetes 2016, [place] [employer]. Diabetes Care. 2016.39(Suppl 1). Performed By: #### 2 4323-8 #### [facility] [place] [id number] [address] [place] [address] [place] Potassium [Moles/Vol] 4.5 mmol/L Normal 3.7-5.1 [facility] Comment on above: Order Comment: Shashi love Type: BLOOD SPECIMEN Ordering Facility: [facility] Address: [address] [place] [address] Performed By: #### 2 4323-8 #### [facility] IA [id number] [address] [place] [address] [place] Protein [Mass/Vol] 8.0 g/dL Normal 6.3-8.0 [facility] Comment on above: Order Comment: Shashi love Type: BLOOD SPECIMEN Ordering Facility: [facility] Address: [address] [place] [address] Performed By: #### 2 4323-8 #### [facility] IA [id number] [address] [place], [place] [id number] [place] [address] [place] Sodium [Moles/Vol] 138 mmol/L Normal 136-144 [facility] Comment on above: Order Comment: Speci men Type: BLOOD SPECIMEN Ordering Facility: [facility] Address: [address] [facility] [place] [address] Performed By: #### 2 4323-8 #### [facility] CLIA [id number] [address] [place] [address] [place] Urea nitrogen [Mass/Vol] 16 mg/dL Normal 7-21 [facility] Comment on above: Order Comment: Speci men Type: BLOOD SPECIMEN Ordering Facility: [facility] Address: [address] [place], [place] [address] [address] Performed By: #### 2 4323-8 #### [facility] CLIA [id number] [address] [place], [place] [id number] [place] [address] [place] Albumin [Mass/Vol] 4.7 g/dL 3.9 - 4.9 g/dL [facility] ALP [Catalytic activity/Vol] 88 U/L 34 - 123 U/L [facility] ALT [Catalytic activity/Vol] 17 U/L 7 - 38 U/L [facility] Anion gap [Moles/Vol] 9 mmol/L 9 - 18 mmol/L [facility] AST [Catalytic activity/Vol] 20 U/L 13 - 35 U/L [facility] Bilirubin [Mass/Vol] 0.3 mg/dL 0.2 - 1 .3 mg/dL [facility] Calcium [Mass/Vol] 9.5 mg/dL 8.5 - 10. 2 mg/dL [facility] Chloride [Moles/Vol] 101 mmol/L 97 - 10 5 mmol/L [facility] CO2 [Moles/Vol] 28 mmol/L 22 - 30 mmol/L [facility] Creatinine [Mass/Vol] 0.75 mg/dL 0.58 - 0.96 mg/dL [facility] Estimated Glomerular Filtration Rate 95 mL/min/1.73m >=60 mL/min/1.73m [facility] Glucose [Mass/Vol] 116 mg/dL High 74 - 99 mg/dL [facility] Potassium [Moles/Vol] 4.5 mmol/L 3.7 - 5.1 mmol/L [facility] Protein [Mass/Vol] 8.0 g/dL 6.3 - 8.0 g/dL [facility] Sodium [Moles/Vol] 138 mmol/L 136 - 144 mmol/L [facility] Urea nitrogen [Mass/Vol] 16 mg/dL 7 - 21 mg/dL [facility] Outside Flexible Sigmoidosco pyon 04-25-2022 Outside Flexible Sigmoidoscopy [id number]:127 Normal [facility] PREG HCG QUALon 04-24-2022 , QUAL Negative Normal NEGATIVE [facility] Comment on above: Performed By: #### P REG #### [facility] [address] [place] [address] Dr. Kirby Espinoza Lab Reportson 04-23-2022 Lab Reports [id number] .[id number]:127 Normal [facility] Covid-19 PCR (CVDTBH)on SARS-CoV-2 (COVID-19) RNA SUSAN+probe Ql (Unsp spec) Not detected Normal NOT DETECTED [facility] Comment on above: Result Comment: This test is not yet approved or cleared by the [place] FDA. When there are no FDA-approved or cleared tests available, and other criteria are met, FDA can make tests available under an emergency access mechanism called an Emergency Use Authorization (EUA). The EUA for this test is supported by the [place] of Health and Human Service's (HHS's) declaration that circumstances exist to justify the emergency use of in vitro diagnostics for the detection and/or diagnosis of the virus that causes COVID-19. This EUA will remain in effect (meaning this test can be used) for the duration of the COVID-19 declaration justifying emergency of IVDs, unless it is terminated or revoked by FDA (after which the test may no longer be used). When diagnostic testing is negative, the possibility of a false negative should be considered in the context of a patient's recent exposures and the presence of clinical signs and symptoms consistent with SARS-CoV-2. Performed By: #### C VDTBH #### [facility] [address] [address] [address] Kirby Espinoza Provider Letter FTon 03-26 Provider Letter [facility] March 26, 2022 KIRT REYNA [address] [place] [id number] KIRT REYNA 1970 Dear Kirt, We have been trying to reach you with no success. It is important that you return our call regarding your colonoscopy upon receiving this letter. We feel it's very important to your health to proceed with recommended procedure. If you have decided to seek care or second opinion elsewhere, please notify our office. Otherwise, please call to reschedule your colonoscopy. Thank you for your prompt attention to this matter. Sincerely, Dr. Vitaly Vaughn MD General Surgery [facility] Consent for Procedure/Surger yon 02-21-2022 Consent for Procedure/Surgery [id number] .[id number]:127 Normal [facility] Physician Referralon 022 Physician Referral [id number] .[id number]:127 Normal [facility] CBC AUTO DIFFon 02-04-2022 BASO # 0.0 103/ul Normal 0.0-0.1 [facility] Comment on above: Performed By: #### C BC #### [facility] [address] [address] [address] Kirby Espinoza Basophils/100 WBC (Bld) 0.3 % Normal 0.2-2.0 [facility] Comment on above: Performed By: #### C BC #### [facility] [address] [address] [address] Kirby Espinoza EO # 0.1 103/ul Normal 0.0-0.7 [facility] Comment on above: Performed By: #### C BC #### [facility] [address] [address] [address] Kirby Espinoza Eosinophils/100 WBC (Bld) 1.5 % Normal 0.9-7.0 [facility] Comment on above: Performed By: #### C BC #### [facility] [address] [place] [address] Dr. Kirby Espinoza Erythrocyte distribution width (RBC) [Ratio] 12.7 % Normal 11.0-15.0 [facility] Comment on above: Performed By: #### C BC #### [facility] [address] [place] [address] Dr. Kirby Espinoza Hematocrit (Bld) [Volume fraction] 38.4 % Normal 36.0-48.0 [facility] Comment on above: Performed By: #### C BC #### [facility] [address] [place] [address] Dr. Kirby Espinoza Hemoglobin (Bld) [Mass/Vol] 13.0 g/dL Normal 12.0-16.0 [facility] Comment on above: Performed By: #### C BC #### [facility] [address] [place] [address] Dr. Kirby Espinoza IG # 0.01 10e3/ul Normal 0.00-0.03 [facility] Comment on above: Performed By: #### C BC #### [facility] [address] [place] [address] Dr. Kirby Espinoza IG % 0.2 % Normal 0.0-0.5 [facility] Comment on above: Performed By: #### C BC #### [facility] [address] [place] [address] Dr. Kirby Espinoza LYMPH # 2.0 103/ul Normal 1.2-3.8 [facility] Comment on above: Performed By: #### C BC #### [facility] [address] [place] [address] Dr. Kirby Espinoza Lymphocytes/100 WBC (Bld) 30.2 % Normal 20.5-60.0 [facility] Comment on above: Performed By: #### C BC #### [facility] [address] [place] [address] Dr. Kirby Espinoza MANUAL DIFF REQ NO Normal [facility] Comment on above: Performed By: #### C BC #### [facility] [address] [place] [address] Dr. Kirby Espinoza MCH (RBC) [Entitic mass] 30.2 pg Normal 26.7-34.0 [facility] Comment on above: Performed By: #### C BC #### [facility] [address] [place] [address] Dr. Kirby Espinoza MCHC (RBC) [Mass/Vol] 33.9 g/dL Normal 29.9-35.2 [facility] Comment on above: Performed By: #### C BC #### [facility] [address] [place] [address] Dr. Kirby Espinoza MCV (RBC) [Entitic vol] 89.1 fL Normal 81.0-99.0 [facility] Comment on above: Performed By: #### C BC #### [facility] [address] [place] [address] Dr. Kirby Espinoza MONO # 0.5 103/ul Normal 0.3-0.8 [facility] Comment on above: Performed By: #### C BC #### [facility] [address] [place] [address] Dr. Kirby Espinoza Monocytes/100 WBC (Bld) 7.0 % Normal 1.7-12.0 [facility] Comment on above: Performed By: #### C BC #### [facility] [address] [place] [address] Dr. Kirby Espinoza NEUT # 4.0 103/ul Normal 1.4-6.5 [facility] Comment on above: Performed By: #### C BC #### [facility] [address] [place] [address] Dr. Kirby Espinoza Neutrophils/100 WBC (Bld) 60.8 % Normal 43.0-75.0 [facility] Comment on above: Performed By: #### C BC #### [facility] [address] [place] [address] Dr. Kirby Espinoza Platelet mean volume (Bld) [Entitic vol] 9.9 fL Normal 9.5-13.5 [facility] Comment on above: Performed By: #### C BC #### [facility] [address] [address] [address] Kirby Espinoza PLT 245 103/ul Normal 150-450 [facility] Comment on above: Performed By: #### C BC #### [facility] [address] [address] [address] Kirby Espinoza RBC 4.31 106/ul Normal 4.20-5.40 [facility] Comment on above: Performed By: #### C BC #### [facility] [address] [address] [address] Kirby Espinoza WBC 6.6 103/ul Normal 4.0-11.0 [facility] Comment on above: Performed By: #### C BC #### [facility] [address] [place] [address] Dr. Kirby Espinoza FREE THYROXINE INDEX T7on FTI 3.01 Normal 1.30-4.50 [facility] Comment on above: Performed By: #### C MP, T7, TSH, LIPID #### [facility] [address] [address] [address] Kirby Espinoza T3U 32.0 % Normal 30.0-39.0 [facility] Comment on above: Performed By: #### C MP, T7, TSH, LIPID #### [facility] [address] [address] [address] Kirby Espinoza T4 [Mass/Vol] 9.40 ug/dL Normal 4.80-13.90 [facility] Comment on above: Performed By: #### C MP, T7, TSH, LIPID #### [facility] [address] [address] [address] Kirby Espinoza GLYCOHEMOGLOBIN A1Con 2021 ADA RECOMMENDATION SEE BELOW Normal [facility] Comment on above: Result Comment: ADA RECOMMENDED LIMIT 4.0 - 6.0 ADA THERAPEUTIC TARGET < 7.0 ACTION SUGGESTED > 7.0 Performed By: #### A 1C ####[facility] [id number] [address]Dr[address] Kirby Espinoza Glucose [Mass/Vol] 114 mg/dL Normal [facility] Comment on above: Performed By: #### A 1C ####[facility] [id number] [place], [place] [address]LkDr. Kirby Espinoza HbA1c (Bld) [Mass fraction] 5.6 % Normal 4.5-6.2 [facility] Comment on above: Performed By: #### A 1C ####[facility] [id number] [place] [id number] Kirby Espinoza IRONon 02-04-2022 Iron [Mass/Vol] 61.0 ug/dL Normal 50.0-170.0 [facility] Comment on above: Performed By: #### I LUIGI #### [facility] [address] [address] [address] Kirby Espinoza LIPID PROFILEon 02-04-2022 CHOL-HDL RATIO NORM SEE BELOW Normal [facility] Comment on above: Result Comment: 3.3 - 4.4 LOW RISK 4.4 - 7.1 AVERAGE RISK 7.1 - 11.0 MODERATE RISK >11.0 HIGH RISK Performed By: #### C MP, T7, TSH, LIPID #### [facility] [address] [address] [address] Kirby Espinoza Cholesterol [Mass/Vol] 194 mg/dL Normal <=200 [facility] Comment on above: Performed By: #### C MP, T7, TSH, LIPID #### [facility] [address] [address] [address] Kirby Espinoza Cholesterol in HDL [Mass/Vol] 69 mg/dL Critically high 40-60 [facility] Comment on above: Performed By: #### C MP, T7, TSH, LIPID #### [facility] [address] [address] [address] Kirby Espinoza Cholesterol in LDL [Mass/Vol] 110.4 mg/dL Normal [facility] Comment on above: Performed By: #### C MP, T7, TSH, LIPID #### [facility] [address] [address] [address] Kirby Espinoza Cholesterol.total/Ch olesterol in HDL [Mass ratio] 2.8 {ratio} Normal [facility] Comment on above: Performed By: #### C MP, T7, TSH, LIPID #### [facility] [address] [address] [address] Kirby Espinoza HDL NORMAL > or = 60 mg/dl - LO W CARDIOVASCULAR RISK <40 mg/dl - HIGH CARDIOVASCULAR RISK Normal [facility] Comment on above: Performed By: #### C MP, T7, TSH, LIPID #### [facility] [address] [address] [address] Kirby Espinoza LDL CALC NORMAL SEE BELOW Normal [facility] Comment on above: Result Comment: <100 mg/dl OPTIMAL 100 - 129 mg/dl NEAR OR ABOVE OPTIMAL 130 - 159 mg/dl BORDERLINE HIGH 160 - 189 mg/dl HIGH >190 mg/dl VERY HIGH Performed By: #### C MP, T7, TSH, LIPID #### [facility] [address] [address] [address] Kirby Espinoza Triglyceride [Mass/Vol] 73 mg/dL Normal <=150 [facility] Comment on above: Performed By: #### C MP, T7, TSH, LIPID #### [facility] [address] [address] [address] Kirby Espinoza VLDL CALC 14.6 mg/dL Normal [facility] Comment on above: Performed By: #### C MP, T7, TSH, LIPID #### [facility] [address] [address] [address] Kirby Espinoza OCC BLD IMMUNO SCREENon 01-12 OCCULT BLOOD Positive Abnormal NEGATIVE [facility] Comment on above: Performed By: #### O BSCRN #### [facility] [address] [address] [address] Kirby Espinoza PROF 14(COMP METB)on 022 Albumin [Mass/Vol] 3.6 g/dL Normal 3.4-5.0 [facility] Comment on above: Performed By: #### C MP, T7, TSH, LIPID ####[facility] [facility] [id number] [place] [address]Dr. Kirby Espinoza Albumin/Globulin [Mass ratio] 0.9 {ratio} Normal [facility] Comment on above: Performed By: #### C MP, T7, TSH, LIPID ####[facility] [address] [place] [address]Dr. Kirby Espinoza ALP [Catalytic activity/Vol] 72 U/L Normal 46-116 [facility] Comment on above: Performed By: #### C MP, T7, TSH, LIPID ####[facility] [address] [place] [address]Dr. Kirby Espinoza ALT [Catalytic activity/Vol] 21 U/L Normal 14-59 [facility] Comment on above: Performed By: #### C MP, T7, TSH, LIPID ####[facility] [address] [place] [address]Dr. Dominiquebong Espinoza Anion gap [Moles/Vol] 10.2 mmol/L Normal [facility] Comment on above: Performed By: #### C MP, T7, TSH, LIPID ####[facility] [id number] [place], [place] [address]Dr. Kirby Espinoza AST [Catalytic activity/Vol] 17 U/L Normal 15-37 [facility] Comment on above: Performed By: #### C MP, T7, TSH, LIPID ####[facility] [address] [place] [address]Dr. Kirby Espinoza Bilirubin [Mass/Vol] 0.5 mg/dL Normal 0.2-1.0 [facility] Comment on above: Performed By: #### C MP, T7, TSH, LIPID ####[facility] [address] [place] [address]Dr. Kirby Espinoza Calcium [Mass/Vol] 8.6 mg/dL Normal 8.5-10.1 [facility] Comment on above: Performed By: #### C MP, T7, TSH, LIPID ####[facility] [address] [place] [address]Dr. Kirby Espinoza Chloride [Moles/Vol] 103 mmol/L Normal 98-107 [facility] Comment on above: Performed By: #### C MP, T7, TSH, LIPID ####[facility] [address] [place] [id number]. Kirby Espinoza CO2 [Moles/Vol] 27.4 mmol/L Normal 21.0-32.[address] [facility] Comment on above: Performed By: #### C MP, T7, TSH, LIPID ####[facility] [address] [place] [id number]. Kirby Espinoza Creatinine [Mass/Vol] 0.70 mg/dL Normal 0.55-1.02 [facility] Comment on above: Performed By: #### C MP, T7, TSH, LIPID ####[facility] [address] [place] [id number]. Kirby Espinoza EGFR-AF BULGARIAN >60 Normal >=60 [facility] Comment on above: Performed By: #### C MP, T7, TSH, LIPID ####[facility] [address] [place] [address]Dr. Kirby Espinoza EGFR-NON AF BULGARIAN >60 Normal >=60 [facility] Comment on above: Performed By: #### C MP, T7, TSH, LIPID ####[facility] [address] [place] [id number]. Kirby Espinoza Globulin (S) [Mass/Vol] 3.8 g/dL Normal [facility] Comment on above: Performed By: #### C MP, T7, TSH, LIPID ####[facility] [address] [place] [id number]. Kirby Espinoza Glucose [Mass/Vol] 103 mg/dL Normal 74-106 [facility] Comment on above: Performed By: #### C MP, T7, TSH, LIPID ####[facility] [address] [place] [id number]. Kirby Espinoza Potassium [Moles/Vol] 3.6 mmol/L Normal 3.5-5.1 [facility] Comment on above: Performed By: #### C MP, T7, TSH, LIPID ####[facility] [address] [place] [id number]. Kirby Espinoza Protein [Mass/Vol] 7.4 g/dL Normal 6.4-8.2 [facility] Comment on above: Performed By: #### C MP, T7, TSH, LIPID ####[facility] [address] [place] [id number]. Kirby Espinoza Sodium [Moles/Vol] 137 mmol/L Normal 136-145 [facility] Comment on above: Performed By: #### C MP, T7, TSH, LIPID ####[facility] [address] [place] [id number]. Kirby Espinoza Urea nitrogen [Mass/Vol] 15.0 mg/dL Normal 7.0-18.0 [facility] Comment on above: Performed By: #### C MP, T7, TSH, LIPID ####[facility] [address] [place] [id number]. Kirby Espinoza Urea nitrogen/Creatinine [Mass ratio] 21.4 mg/mg Normal [facility] Comment on above: Performed By: #### C MP, T7, TSH, LIPID ####[facility] [address] [place] [id number]. Kirby Espinoza TSHon 02-04-2022 TSH 1.513 uIU/mL Normal 0.358-3.740 [facility] Comment on above: Performed By: #### C MP, T7, TSH, LIPID #### [facility] [address] [place], [place] [address] Dr. Kirby Espinoza VC VENOUS REFLUX CARL LMTon 0 12-28-2021 VC VENOUS REFLUX CARL LMT Patient: KIRT REYNA Exam Date: 12/28/2021 : 1970 Gender:F Ordering : DR SONRDA LIU . Admission #: [id number] Family : Order #: [id number] CLICK HERE TO VIEW EXAM RADIOLOGY REPORT PROCEDURE: VEIN CENTER ULTRASOUND VENOUS REFLUX BILATERAL LIMTED COMPARISON: None. INDICATIONS: Edema r60.9 TECHNIQUE: Duplex imaging of the lower extremity to assess the deep and superficial venous system for the presence of deep or superficial venous incompetence and to document the location and severity of disease. The study includes evaluation of the great saphenous vein (GSV), anterior accessory saphenous vein (AASV) and small saphenous vein (SSV). Patient scanned in reverse Trendelenburg and standing. FINDINGS: RIGHT LOWER EXTREMITY: Saphenofemoral Junction Reflux: YesNo 6.4mm sec GSV: Diam (mm) Reflux/ Time (sec) Proximal Thigh 3.8 No Mid Thigh 3.8 Yes 0.6 Distal Thigh 4.7 No 0.5 Prox Calf 2.5 No Mid Calf 1.2 No Saphenopopliteal Junction Reflux: 5.4mm No SSV: Proximal Calf 2.3 No Mid Calf 1.0 No AASV: Not present Proximal Thigh Mid Thigh Distal Thigh Thrombi: No acute or chronic thrombus visualized Compressibility: Normal Flow: Normal Preforator: Dist/med 2.9mm, without reflux; mid/med 2.1mm, without reflux; prox/med 2.6mm with 0.4s reflux. Tech Note: Competent SFJ and SPJ. Patent varicose vein mid/med 3.0mm with 0.4s reflux. Patent varicose vein that comes off of GSV proximal and dives medially 2.7mm without reflux. LEFT LOWER EXTREMITY: Saphenofemoral Junction Reflux: No 6.0 mm sec GSV: Diam (mm) Reflux/Time (sec) Proximal Thigh 3.8 No Mid Thigh 2.6 No Distal Thigh 3.0 No Prox Calf 1.8 No Mid Calf 1.9 No Saphenopopliteal Junction Relux: 5.4 mm No SSV: Proximal Calf 1.5 No Mid Calf 1.4 No AASV: Not present Proximal Thigh Mid Thigh Distal Thigh Thrombi: No acute or chronic thrombus visualized Compressibility: Normal Flow: Normal Sternman: Dist/med 1.7mm, without reflux Tech Note: Competent SFJ and SPJ. Patent varicose vein 1.3mm without reflux. CONCLUSION: 1. No significantly dilated or incompetent superficial veins within the right or left lower extremity. Dictated by: Kristi Tamez M.D. on 12/31/2021 at 07:51 Approved by: Kristi Tamez M.D. on 12/31/2021 at 08:05 Normal [facility] Vital Signs Date Time Vital Sign Value Performing Clinician Facility 12-12-2023 13:55-0400 Body height 170.2 cm Phil Dougherty MD Work Phone: [facility] 12-12-2023 13:55-0400 Body mass index (BMI) [Ratio] 27.72 kg/m2 Phil Dougherty MD Work Phone: [facility] 12-12-2023 13:55-0400 Body temperature 97.3 [degF] Phil Dougherty MD Work Phone: [facility] 12-12-2023 13:55-0400 Body weight 80.29 kg Phil Dougherty MD Work Phone: [facility] 12-12-2023 13:55-0400 Diastolic blood pressure 75 mm[Hg] Phil Dougherty MD Work Phone: [facility] 12-12-2023 13:55-0400 Heart rate 81 /min Phil Dougherty MD Work Phone: [facility] 12-12-2023 13:55-0400 SaO2% (BldA) [Mass fraction] 100 % Phil Dougherty MD Work Phone: [facility] 12-12-2023 13:55-0400 Systolic blood pressure 140 mm[Hg] Phil Dougherty MD Work Phone: [facility] 10-31-2023 16:12-0400 Body temperature 97.11 [degF] Phil Dougherty MD Work Phone: [facility] 10-31-2023 16:12-0400 Diastolic blood pressure 68 mm[Hg] Phil Dougherty MD Work Phone: [facility] 10-31-2023 16:12-0400 Heart rate 90 /min Phil Dougherty MD Work Phone: [facility] 10-31-2023 16:12-0400 SaO2% (BldA) [Mass fraction] 100 % Phil Dougherty MD Work Phone: [facility] 10-31-2023 16:12-0400 Systolic blood pressure 143 mm[Hg] Phil Dougherty MD Work Phone: [facility] 10-27-2023 14:12-0400 Body height 170.2 cm Paco Bonds MD Work Phone: [facility] 10-27-2023 14:12-0400 Body temperature 97 [degF] Paco Bonds MD Work Phone: [facility] 10-27-2023 14:12-0400 Body weight 80.4 kg Paco Bonds MD Work Phone: [facility] 10-27-2023 14:12-0400 Diastolic blood pressure 65 mm[Hg] Paco Bonds MD Work Phone: [facility] 10-27-2023 14:12-0400 Heart rate 93 /min Paco Bonds MD Work Phone: [facility] 10-27-2023 14:12-0400 Respiratory rate 16 /min Paco Bonds MD Work Phone: [facility] 10-27-2023 14:12-0400 SaO2% (BldA) [Mass fraction] 99 % Paco Bonds MD Work Phone: [facility] 10-27-2023 14:12-0400 Systolic blood pressure 144 mm[Hg] Paco Bonds MD Work Phone: [facility] 04-28-2023 13:56-0400 Body height 170.2 cm Paco Bonds MD Work Phone: [facility] 04-28-2023 13:56-0400 Body temperature 97.2 [degF] Paco Bonds MD Work Phone: [facility] 04-28-2023 13:56-0400 Body weight 79.83 kg Paco Bonds MD Work Phone: [facility] 04-28-2023 13:56-0400 Diastolic blood pressure 68 mm[Hg] Paco Bonds MD Work Phone: [facility] 04-28-2023 13:56-0400 Heart rate 84 /min Paco Bonds MD Work Phone: [facility] 04-28-2023 13:56-0400 Respiratory rate 16 /min Paco Bonds MD Work Phone: [facility] 04-28-2023 13:56-0400 SaO2% (BldA) [Mass fraction] 99 % Paco Bonds MD Work Phone: [facility] 04-28-2023 13:56-0400 Systolic blood pressure 155 mm[Hg] Paco Bonds MD Work Phone: [facility] 01-16-2023 15:22-0400 Body weight 78.02 kg Phil Dougherty MD Work Phone: [facility] 01-16-2023 15:22-0400 Diastolic blood pressure 75 mm[Hg] Phil Dougherty MD Work Phone: [facility] 01-16-2023 15:22-0400 Heart rate 78 /min Phil Dougherty MD Work Phone: [facility] 01-16-2023 15:22-0400 Systolic blood pressure 138 mm[Hg] Phil Dougherty MD Work Phone: [facility] 10-28-2022 14:17-0400 Body temperature 97.5 [degF] Toribio Michaud MD Work Phone: [facility] 10-28-2022 14:17-0400 Body weight 79.38 kg Toribio Michaud MD Work Phone: [facility] 10-28-2022 14:17-0400 Diastolic blood pressure 76 mm[Hg] Toribio Michaud MD Work Phone: [facility] 10-28-2022 14:17-0400 Heart rate 90 /min Toribio Michaud MD Work Phone: [facility] 10-28-2022 14:17-0400 Respiratory rate 16 /min Toribio Michaud MD Work Phone: [facility] 10-28-2022 14:17-0400 Systolic blood pressure 139 mm[Hg] Toribio Michaud MD Work Phone: [facility] 10-28-2022 13:40-0400 Diastolic blood pressure 76 mm[Hg] Paco Bonds MD Work Phone: [facility] 10-28-2022 13:40-0400 Heart rate 90 /min Paco Bonds MD Work Phone: [facility] 10-28-2022 13:40-0400 Systolic blood pressure 139 mm[Hg] Paco Bonds MD Work Phone: [facility] 10-28-2022 13:34-0400 Body height 170.2 cm Paco Bonds MD Work Phone: [facility] 10-28-2022 13:34-0400 Body temperature 97.5 [degF] Paco Bonds MD Work Phone: [facility] 10-28-2022 13:34-0400 Body weight 79.65 kg Paco Bonds MD Work Phone: [facility] 10-28-2022 13:34-0400 Respiratory rate 16 /min Paco Bonds MD Work Phone: [facility] 10-28-2022 13:34-0400 SaO2% (BldA) [Mass fraction] 100 % Paco Bonds MD Work Phone: [facility] 09-04-2022 10:29-0500 Body height 170.2 cm Paco Bonds MD Work Phone: [facility] 09-04-2022 10:29-0500 Body temperature 98.91 [degF] Paco Bonds MD Work Phone: [facility] 09-04-2022 10:29-0500 Body weight 78.56 kg Paco Bonds MD Work Phone: [facility] 09-04-2022 10:29-0500 Diastolic blood pressure 67 mm[Hg] Paco Bonds MD Work Phone: [facility] 09-04-2022 10:29-0500 Heart rate 97 /min Paco Bonds MD Work Phone: [facility] 09-04-2022 10:29-0500 Respiratory rate 16 /min Paco Bonds MD Work Phone: [facility] 09-04-2022 10:29-0500 SaO2% (BldA) [Mass fraction] 98 % Paco Bonds MD Work Phone: [facility] 09-04-2022 10:29-0500 Systolic blood pressure 142 mm[Hg] Paco Bonds MD Work Phone: [facility] 08-01-2022 10:47-0500 Body temperature 97.39 [degF] Toribio Michaud MD Work Phone: [facility] 08-01-2022 10:47-0500 Body weight 76.66 kg Toribio Michaud MD Work Phone: [facility] 08-01-2022 10:47-0500 Diastolic blood pressure 74 mm[Hg] Toribio Michaud MD Work Phone: [facility] 08-01-2022 10:47-0500 Heart rate 79 /min Toribio Michaud MD Work Phone: [facility] 08-01-2022 10:47-0500 Respiratory rate 16 /min Toribio Michaud MD Work Phone: [facility] 08-01-2022 10:47-0500 SaO2% (BldA) [Mass fraction] 99 % Toribio Michaud MD Work Phone: [facility] 08-01-2022 10:47-0500 Systolic blood pressure 111 mm[Hg] Toribio Michaud MD Work Phone: [facility] 07-24-2022 10:16-0500 Body temperature 98.1 [degF] Chair Buenrostro Work Phone: [facility] 07-24-2022 10:16-0500 Diastolic blood pressure 82 mm[Hg] Chair Chitra Work Phone: [facility] 07-24-2022 10:16-0500 Heart rate 68 /min Chair [place] Work Phone: [facility] 07-24-2022 10:16-0500 Respiratory rate 16 /min Chair Chitra Work Phone: [facility] 07-24-2022 10:16-0500 Systolic blood pressure 129 mm[Hg] Chair Chitra Work Phone: [facility] 07-23-2022 12:10-0500 Body temperature 97.3 [degF] Toribio Michaud MD Work Phone: [facility] 07-23-2022 12:10-0500 Body weight 76.02 kg Toribio Michaud MD Work Phone: [facility] 07-23-2022 12:10-0500 Diastolic blood pressure 87 mm[Hg] Toribio Michaud MD Work Phone: [facility] 07-23-2022 12:10-0500 Heart rate 83 /min Toribio Michaud MD Work Phone: [facility] 07-23-2022 12:10-0500 Respiratory rate 16 /min Toribio Michaud MD Work Phone: [facility] 07-23-2022 12:10-0500 SaO2% (BldA) [Mass fraction] 98 % Toribio Michaud MD Work Phone: [facility] 07-23-2022 12:10-0500 Systolic blood pressure 137 mm[Hg] Toribio Michaud MD Work Phone: [facility] 07-22-2022 10:14-0500 Body temperature 98.01 [degF] Chair Chitra Work Phone: [facility] 07-22-2022 10:14-0500 Diastolic blood pressure 80 mm[Hg] Chair [place] Work Phone: [facility] 07-22-2022 10:14-0500 Heart rate 84 /min Chair [place] Work Phone: [facility] 07-22-2022 10:14-0500 Respiratory rate 16 /min Chair [place] Work Phone: [facility] 07-22-2022 10:14-0500 SaO2% (BldA) [Mass fraction] 98 % Chair Chitra Work Phone: [facility] 07-22-2022 10:14-0500 Systolic blood pressure 134 mm[Hg] Chair [place] Work Phone: [facility] 07-19-2022 10:18-0500 Body temperature 98.2 [degF] Chair Chitra Work Phone: [facility] 07-19-2022 10:18-0500 Diastolic blood pressure 76 mm[Hg] Chair Chitra Work Phone: [facility] 07-19-2022 10:18-0500 Heart rate 82 /min Chair [place] Work Phone: [facility] 07-19-2022 10:18-0500 Respiratory rate 18 /min Chair Chitra Work Phone: [facility] 07-19-2022 10:18-0500 SaO2% (BldA) [Mass fraction] 99 % Chair [place] Work Phone: [facility] 07-19-2022 10:18-0500 Systolic blood pressure 133 mm[Hg] Chair Chitra Work Phone: [facility] 07-18-2022 12:28-0500 Body temperature 97.9 [degF] Toribio Michaud MD Work Phone: [facility] 07-18-2022 12:28-0500 Body weight 79.83 kg Toribio Michaud MD Work Phone: [facility] 07-18-2022 12:28-0500 Diastolic blood pressure 85 mm[Hg] Toribio Michaud MD Work Phone: [facility] 07-18-2022 12:28-0500 Heart rate 79 /min Toribio Michaud MD Work Phone: [facility] 07-18-2022 12:28-0500 Respiratory rate 16 /min Toribio Michaud MD Work Phone: [facility] 07-18-2022 12:28-0500 SaO2% (BldA) [Mass fraction] 98 % Toribio Michaud MD Work Phone: [facility] 07-18-2022 12:28-0500 Systolic blood pressure 138 mm[Hg] Toribio Michaud MD Work Phone: [facility] 07-17-2022 10:21-0500 Body height 170.2 cm Paco Bonds MD Work Phone: [facility] 07-17-2022 10:21-0500 Body temperature 97.2 [degF] Paco Bonds MD Work Phone: [facility] 07-17-2022 10:21-0500 Body weight 77.02 kg Paco Bonds MD Work Phone: [facility] 07-17-2022 10:21-0500 Diastolic blood pressure 70 mm[Hg] Paco Bonds MD Work Phone: [facility] 07-17-2022 10:21-0500 Heart rate 78 /min Paco Bonds MD Work Phone: [facility] 07-17-2022 10:21-0500 Respiratory rate 16 /min Paco Bonds MD Work Phone: [facility] 07-17-2022 10:21-0500 SaO2% (BldA) [Mass fraction] 100 % Paco Bonds MD Work Phone: [facility] 07-17-2022 10:21-0500 Systolic blood pressure 133 mm[Hg] Paco Bonds MD Work Phone: [facility] 07-12-2022 10:13-0500 Body temperature 98.4 [degF] Chair Chitra Work Phone: [facility] 07-12-2022 10:13-0500 Diastolic blood pressure 74 mm[Hg] Chair Chitra Work Phone: [facility] 07-12-2022 10:13-0500 Heart rate 78 /min Chair [place] Work Phone: [facility] 07-12-2022 10:13-0500 Respiratory rate 18 /min Chair Chitra Work Phone: [facility] 07-12-2022 10:13-0500 SaO2% (BldA) [Mass fraction] 99 % Chair Chitra Work Phone: [facility] 07-12-2022 10:13-0500 Systolic blood pressure 110 mm[Hg] Chair Chitra Work Phone: [facility] 07-11-2022 12:09-0500 Body temperature 98.2 [degF] Toribio Michaud MD Work Phone: [facility] 07-11-2022 12:09-0500 Body weight 77.2 kg Toriboi Michaud MD Work Phone: [facility] 07-11-2022 12:09-0500 Diastolic blood pressure 74 mm[Hg] Toribio Michaud MD Work Phone: [facility] 07-11-2022 12:09-0500 Heart rate 63 /min Toribio Michaud MD Work Phone: [facility] 07-11-2022 12:09-0500 Respiratory rate 16 /min Toribio Michaud MD Work Phone: [facility] 07-11-2022 12:09-0500 SaO2% (BldA) [Mass fraction] 99 % Toribio Michaud MD Work Phone: [facility] 07-11-2022 12:09-0500 Systolic blood pressure 145 mm[Hg] Toribio Michaud MD Work Phone: [facility] 07-10-2022 09:07-0500 Body height 170.2 cm Gerardo Mckinnon APRN.[employer] Work Phone: [facility] 07-10-2022 09:07-0500 Body temperature 97.9 [degF] Gerardo Mckinnon APRN.[employer] Work Phone: [facility] 07-10-2022 09:07-0500 Body weight 77.02 kg Gerardo Mckinnon APRN.[employer] Work Phone: [facility] 07-10-2022 09:07-0500 Diastolic blood pressure 68 mm[Hg] Gerardo Mckinnon APRN.[employer] Work Phone: [facility] 07-10-2022 09:07-0500 Heart rate 87 /min Gerardo Mckinnon APRN.[employer] Work Phone: [facility] 07-10-2022 09:07-0500 Respiratory rate 16 /min Gerardo Mckinnon APRN.[employer] Work Phone: [facility] 07-10-2022 09:07-0500 SaO2% (BldA) [Mass fraction] 97 % Gerardo Mckinnon APRN.[employer] Work Phone: [facility] 07-10-2022 09:07-0500 Systolic blood pressure 147 mm[Hg] Gerardo Mckinnon APRN.[employer] Work Phone: [facility] 07-03-2022 12:15-0500 Body temperature 96.69 [degF] Toribio Michaud MD Work Phone: [facility] 07-03-2022 12:15-0500 Body weight 76.66 kg Toribio Michaud MD Work Phone: [facility] 07-03-2022 12:15-0500 Diastolic blood pressure 87 mm[Hg] Toribio Michaud MD Work Phone: [facility] 07-03-2022 12:15-0500 Heart rate 82 /min Toribio Michaud MD Work Phone: [facility] 07-03-2022 12:15-0500 Respiratory rate 18 /min Toribio Michaud MD Work Phone: [facility] 07-03-2022 12:15-0500 SaO2% (BldA) [Mass fraction] 96 % Toribio Michaud MD Work Phone: [facility] 07-03-2022 12:15-0500 Systolic blood pressure 153 mm[Hg] Toribio Michaud MD Work Phone: [facility] 06-28-2022 10:25-0500 Body temperature 98.1 [degF] Chair Chitra Work Phone: [facility] 06-28-2022 10:25-0500 Diastolic blood pressure 55 mm[Hg] Chair Chitra Work Phone: [facility] 06-28-2022 10:25-0500 Heart rate 76 /min Chair Chitra Work Phone: [facility] 06-28-2022 10:25-0500 Respiratory rate 16 /min Chair [place] Work Phone: [facility] 06-28-2022 10:25-0500 SaO2% (BldA) [Mass fraction] 98 % Chair [place] Work Phone: [facility] 06-28-2022 10:25-0500 Systolic blood pressure 127 mm[Hg] Chair Chitra Work Phone: [facility] 06-26-2022 12:42-0500 Body temperature 96.69 [degF] Toribio Michaud MD Work Phone: [facility] 06-26-2022 12:42-0500 Body weight 76.11 kg Toribio Michaud MD Work Phone: [facility] 06-26-2022 12:42-0500 Diastolic blood pressure 78 mm[Hg] Toribio Michaud MD Work Phone: [facility] 06-26-2022 12:42-0500 Heart rate 74 /min Toribio Michaud MD Work Phone: [facility] 06-26-2022 12:42-0500 Respiratory rate 18 /min Toribio Michaud MD Work Phone: [facility] 06-26-2022 12:42-0500 SaO2% (BldA) [Mass fraction] 100 % Toribio Michaud MD Work Phone: [facility] 06-26-2022 12:42-0500 Systolic blood pressure 135 mm[Hg] Toribio Michaud MD Work Phone: [facility] 06-24-2022 11:41-0500 Body height 170.2 cm Gerardo Mckinnon APRN.[employer] Work Phone: [facility] 06-24-2022 11:41-0500 Body temperature 97.59 [degF] Gerardo Mckinnon APRN.[employer] Work Phone: [facility] 06-24-2022 11:41-0500 Body weight 75.66 kg Gerardo Mckinnon APRN.[employer] Work Phone: [facility] 06-24-2022 11:41-0500 Diastolic blood pressure 71 mm[Hg] Gerardo Mckinnon APRN.[employer] Work Phone: [facility] 06-24-2022 11:41-0500 Heart rate 90 /min Gerardo Mckinnon APRN.[employer] Work Phone: [facility] 06-24-2022 11:41-0500 Respiratory rate 16 /min Gerardo Mckinnon APRN.[employer] Work Phone: [facility] 06-24-2022 11:41-0500 SaO2% (BldA) [Mass fraction] 99 % Gerardo Mckinnon APRN.[employer] Work Phone: [facility] 06-24-2022 11:41-0500 Systolic blood pressure 141 mm[Hg] Gerardo Mckinnon APRN.[employer] Work Phone: [facility] 06-21-2022 13:20-0500 Body temperature 97.9 [degF] Chair Chitra Work Phone: [facility] 06-21-2022 13:20-0500 Diastolic blood pressure 80 mm[Hg] Chair Chitra Work Phone: [facility] 06-21-2022 13:20-0500 Heart rate 81 /min Chair Chitra Work Phone: [facility] 06-21-2022 13:20-0500 Respiratory rate 16 /min Chair [place] Work Phone: [facility] 06-21-2022 13:20-0500 SaO2% (BldA) [Mass fraction] 100 % Chair [place] Work Phone: [facility] 06-21-2022 13:20-0500 Systolic blood pressure 130 mm[Hg] Chair Nauvoo Work Phone: [facility] 06-19-2022 14:15-0500 Body temperature 98.01 [degF] Chair [place] Work Phone: [facility] 06-19-2022 14:15-0500 Diastolic blood pressure 62 mm[Hg] Chair [place] Work Phone: [facility] 06-19-2022 14:15-0500 Heart rate 69 /min Chair [place] Work Phone: [facility] 06-19-2022 14:15-0500 Respiratory rate 16 /min Chair Chitra Work Phone: [facility] 06-19-2022 14:15-0500 Systolic blood pressure 117 mm[Hg] Chair Chitra Work Phone: [facility] 06-19-2022 13:19-0500 Body temperature 97.2 [degF] Toribio Michuad MD Work Phone: [facility] 06-19-2022 13:19-0500 Body weight 76.2 kg Toribio Michaud MD Work Phone: [facility] 06-19-2022 13:19-0500 Diastolic blood pressure 72 mm[Hg] Toribio Michaud MD Work Phone: [facility] 06-19-2022 13:19-0500 Heart rate 78 /min Toribio Michaud MD Work Phone: [facility] 06-19-2022 13:19-0500 Respiratory rate 16 /min Toribio Michaud MD Work Phone: [facility] 06-19-2022 13:19-0500 SaO2% (BldA) [Mass fraction] 99 % Toribio Michaud MD Work Phone: [facility] 06-19-2022 13:19-0500 Systolic blood pressure 125 mm[Hg] Toribio Michaud MD Work Phone: [facility] 06-17-2022 13:33-0500 Body height 170.2 cm Paco Bonds MD Work Phone: [facility] 06-17-2022 13:33-0500 Body temperature 97.5 [degF] Paco Bonds MD Work Phone: [facility] 06-17-2022 13:33-0500 Body weight 75.75 kg Paco Bonds MD Work Phone: [facility] 06-17-2022 13:33-0500 Diastolic blood pressure 61 mm[Hg] Paco Bonds MD Work Phone: [facility] 06-17-2022 13:33-0500 Heart rate 79 /min Paco Bonds MD Work Phone: [facility] 06-17-2022 13:33-0500 Respiratory rate 18 /min Paco Bonds MD Work Phone: [facility] 06-17-2022 13:33-0500 SaO2% (BldA) [Mass fraction] 99 % Paco Bonds MD Work Phone: [facility] 06-17-2022 13:33-0500 Systolic blood pressure 131 mm[Hg] Paco Bonds MD Work Phone: [facility] 05-27-2022 11:01-0500 Body height 170.2 cm Paco Bonds MD Work Phone: [facility] 05-27-2022 11:01-0500 Body temperature 97.2 [degF] Paco Bonds MD Work Phone: [facility] 05-27-2022 11:01-0500 Body weight 77.38 kg Paco Bonds MD Work Phone: [facility] 05-27-2022 11:01-0500 Diastolic blood pressure 72 mm[Hg] Paco Bonds MD Work Phone: [facility] 05-27-2022 11:01-0500 Heart rate 90 /min Paco Bonds MD Work Phone: [facility] 05-27-2022 11:01-0500 Respiratory rate 16 /min Paco Bonds MD Work Phone: [facility] 05-27-2022 11:01-0500 SaO2% (BldA) [Mass fraction] 98 % Paco Bonds MD Work Phone: [facility] 05-27-2022 11:01-0500 Systolic blood pressure 150 mm[Hg] Paco Bonds MD Work Phone: [facility] 05-06-2022 10:46-0400 Body temperature 98.1 [degF] Paco Bonds MD Work Phone: [facility] 05-06-2022 10:46-0400 Body weight 77 kg Paco Bonds MD Work Phone: [facility] 05-06-2022 10:46-0400 Diastolic blood pressure 65 mm[Hg] Paco Bonds MD Work Phone: [facility] 05-06-2022 10:46-0400 Heart rate 82 /min Paco Bonds MD Work Phone: [facility] 05-06-2022 10:46-0400 Respiratory rate 16 /min Paco Bonds MD Work Phone: [facility] 05-06-2022 10:46-0400 SaO2% (BldA) [Mass fraction] 100 % Paco Bonds MD Work Phone: [facility] 05-06-2022 10:46-0400 Systolic blood pressure 126 mm[Hg] Paco Bonds MD Work Phone: [facility] 05-06-2022 09:10-0400 Body temperature 98.1 [degF] Toribio Michaud MD Work Phone: [facility] 05-06-2022 09:10-0400 Body weight 77.02 kg Toribio Michaud MD Work Phone: [facility] 05-06-2022 09:10-0400 Diastolic blood pressure 65 mm[Hg] Toribio Michaud MD Work Phone: [facility] 05-06-2022 09:10-0400 Heart rate 82 /min Toribio Michaud MD Work Phone: [facility] 05-06-2022 09:10-0400 Respiratory rate 16 /min Toribio Michaud MD Work Phone: [facility] 05-06-2022 09:10-0400 SaO2% (BldA) [Mass fraction] 100 % Toribio Michaud MD Work Phone: [facility] 05-06-2022 09:10-0400 Systolic blood pressure 126 mm[Hg] Toribio Michaud MD Work Phone: [facility] 05-02-2022 09:07-0400 Body weight 74.84 kg Phil Dougherty MD Work Phone: [facility] 05-02-2022 09:07-0400 Diastolic blood pressure 78 mm[Hg] Phil Dougherty MD Work Phone: [facility] 05-02-2022 09:07-0400 Heart rate 89 /min Phil Dougherty MD Work Phone: [facility] 05-02-2022 09:07-0400 SaO2% (BldA) [Mass fraction] 100 % Phil Dougherty MD Work Phone: [facility] 05-02-2022 09:07-0400 Systolic blood pressure 143 mm[Hg] Phil Dougherty MD Work Phone: [facility] 02-20-2022 14:21-0400 Blood Pressure Location Vitaly NILL [facility] [place] 02-20-2022 14:21-0400 Diastolic blood pressure 74 mm[Hg] Vitaly NILL [facility] [place] 02-20-2022 14:21-0400 Heart rate 72 /min Vitaly NILL [facility] [place] 02-20-2022 14:21-0400 Respiratory rate 16 /min Vitaly NILL [facility] [place] 02-20-2022 14:21-0400 Systolic blood pressure 116 mm[Hg] Vitaly NILL [facility] [place] Encounters Encounter Date Encounter Type Care Provider Facility Start: 12-12-2023 End: 12-12-2023 ambulatory PHIL DOUGHERTY Facility:[facility] Start: 12-12-2023 End: 12-12-2023 Patient encounter procedure Phil Dougherty MD Work Phone: Colorectal Surgery Comment on above: Anal itching (Primar y Dx); Diarrhea, unspecified type Start: 10-31-2023 End: 10-31-2023 ambulatory PHIL DOUGHERTY Facility:[facility] Start: 10-31-2023 End: 10-31-2023 Patient encounter procedure Phil Dougherty MD Work Phone: Colorectal Surgery Comment on above: Encounter for follow -up surveillance of anal cancer (Primary Dx) Start: 10-27-2023 End: 10-27-2023 Patient encounter procedure Toribio Michaud MD Work Phone: Radiation Oncology Comment on above: Encounter for screen ing for osteoporosis (Primary Dx); Malignant neoplasm of pelvis (HCC); Anal cancer (HCC) Start: 10-27-2023 End: 10-27-2023 Office outpatient visit 25 minutes Paco Bonds MD Work Phone: Hematology/Oncology Comment on above: Anal cancer (HCC) (P rimary Dx); POTS (postural orthostatic tachycardia syndrome) Start: 10-27-2023 End: 10-27-2023 ambulatory TORIBIO MICHAUD Facility:[facility] Start: 10-01-2023 End: 10-01-2023 ambulatory TORIBIO JASWANT Facility:[facility] Start: 09-29-2023 [facility] Start: 09-29-2023 End: 09-29-2023 Subsequent hospital visit by physician [facility] (1.5t) [facility] Comment on above: Malignant neoplasm o f anus (HCC) [C21.0] Start: 09-12-2023 Telephone encounter [facility]: Orders Start: 07-11-2023 End: 07-11-2023 ambulatory PHIL DOUGHERTY Facility:[facility] Start: 05-27-2023 Telephone encounter Phil marrero MD Work Phone: Colorectal Surgery Comment on above: Appointment Start: 04-28-2023 End: 04-28-2023 Office outpatient visit 25 minutes Paco Bonds MD Work Phone: Hematology/Oncology Comment on above: Anal cancer (HCC) (P rimary Dx); POTS (postural orthostatic tachycardia syndrome) Start: 04-28-2023 End: 04-28-2023 ambulatory SONDRA LIU Facility:[facility] Start: 02-27-2023 Telephone encounter Toribio Michaud MD Work Phone: Radiation Oncology Comment on above: Results Start: 02-10-2023 Telephone encounter Toribio Michaud MD Work Phone: Radiation Oncology Comment on above: Patient Question Start: 01-16-2023 End: 01-16-[address] [facility] Facility:[facility] Start: 01-16-2023 End: 01-16-2023 Patient encounter procedure Phil Dougherty MD Work Phone: Colorectal Surgery Comment on above: Encounter for follow -up surveillance of anal cancer (Primary Dx) Start: 10-28-2022 End: 10-28-2022 Patient encounter procedure Toribio Michaud MD Work Phone: Radiation Oncology Comment on above: Malignant neoplasm o f anus (HCC) (Primary Dx) Start: 10-28-2022 End: 10-28-2022 Office outpatient visit 25 minutes Paco Bonds MD Work Phone: Hematology/Oncology Comment on above: Anal cancer (HCC) (P rimary Dx); POTS (postural orthostatic tachycardia syndrome) Start: 10-11-[address] [facility] Facility: [facility] Start: 10-11-2022 End: 10-11-2022 Subsequent hospital visit by physician [facility] Radiology Comment on above: Malignant neoplasm o f anus (HCC) [C21.0] Start: 09-04-2022 End: 09-04-2022 Patient encounter procedure Toribio Michaud MD Work Phone: Radiation Oncology Comment on above: Malignant neoplasm o f anus (HCC) (Primary Dx); Anal cancer (HCC) Start: 09-04-2022 End: 09-04-2022 Office outpatient visit 25 minutes Paco Bonds MD Work Phone: Hematology/Oncology Comment on above: Anal cancer (HCC) (P rimary Dx); POTS (postural orthostatic tachycardia syndrome) Start: 08-16-2022 Telephone encounter Leandra Whitehead Hematology/Oncology Comment on above: Care Coordination (L danette Request) Start: 08-01-2022 End: 08-01-2022 Patient encounter procedure Lab/Port Brenda Buenrostro Work Phone: Radiation Oncology Comment on above: Anal cancer (HCC) Anal cancer (HCC) (P rimary Dx) Start: 07-26-2022 ambulatory Rossi Bradley [facility] Comment on above: Art Therapy Start: 07-25-2022 Patient encounter procedure [facility] Provider [facility] Start: 07-25-2022 Radiation Oncology Note Toribio mackay MD Work Phone: Radiation Oncology Comment on above: Completion Note Start: 07-24-2022 End: 07-24-2022 ambulatory Chair 21 Chitra Work Phone: Hematology/Oncology Comment on above: Anal cancer (HCC) (P rimary Dx); POTS (postural orthostatic tachycardia syndrome) Start: 07-23-2022 End: 07-23-2022 Patient encounter procedure Toribio Michaud MD Work Phone: Radiation Oncology Comment on above: Anal cancer (HCC) (P rimary Dx) Start: 07-22-2022 End: 07-22-2022 ambulatory Chair Bryon Buenrostro Work Phone: Hematology/Oncology Comment on above: Anal cancer (HCC) (P rimary Dx); POTS (postural orthostatic tachycardia syndrome) Start: 07-19-2022 End: 07-19-2022 ambulatory Chair Bryon Buenrostro Work Phone: Hematology/Oncology Comment on above: Anal cancer (HCC) (P rimary Dx); POTS (postural orthostatic tachycardia syndrome) Start: 07-18-2022 End: 07-18-2022 Patient encounter procedure Toribio Michaud MD Work Phone: Radiation Oncology Comment on above: Anal cancer (HCC) (P rimary Dx) Start: 07-17-2022 Telephone encounter [facility]o [facility]der [facility] Comment on above: Referral Information (Cardiology) Start: 07-17-2022 End: 07-17-2022 ambulatory Paco Bonds MD Work Phone: Hematology/Oncology Comment on above: Anal cancer (HCC) (P rimary Dx); POTS (postural orthostatic tachycardia syndrome) Start: 07-17-2022 End: 07-17-2022 Patient encounter procedure Paco Bonds MD Work Phone: [facility] Start: 07-15-2022 ambulatory TORIBIO MICHAUD Facility:[facility] Start: 07-12-2022 End: 07-12-2022 ambulatory Chair 21 Chitra Work Phone: Hematology/Oncology Comment on above: Anal cancer (HCC) (P rimary Dx); POTS (postural orthostatic tachycardia syndrome) Art [facility] Start: 07-11-2022 End: 07-11-2022 Patient encounter procedure Toribio Michaud MD Work Phone: Radiation Oncology Comment on above: Anal cancer (HCC) (P rimary Dx) Start: 07-10-2022 End: 07-10-[address] RD Work Phone: Nutrition Therapy Comment on above: Nutrition Assessment Start: 07-10-2022 End: 07-11-[address] Work Phone: [facility] Comment on above: Anal cancer (HCC) (P rimary Dx); POTS (postural orthostatic tachycardia syndrome) Start: 07-10-2022 End: 07-10-2022 Patient encounter procedure Gerardo Mckinnon APRN.CNP Work Phone: [facility] Start: 07-03-2022 End: 07-03-2022 Patient encounter procedure Toribio Michaud MD Work Phone: Radiation Oncology Comment on above: Anal cancer (HCC) (P rimary Dx) Start: 06-28-2022 Telephone encounter Frida Torres [facility] Work Phone: Hematology/Oncology Comment on above: Medication Problem ( Lidocaine on back order) Medication Authoriza tion (Lidocaine/Hydrocortisone Gel) Start: 06-28-2022 End: 06-28-2022 ambulatory Chair Bryon Buenrostro Work Phone: Hematology/Oncology Comment on above: Anal cancer (HCC) (P rimary Dx); POTS (postural orthostatic tachycardia syndrome) Start: 06-26-2022 End: 06-26-2022 Patient encounter procedure Toribio Michaud MD Work Phone: Radiation Oncology Comment on above: Anal cancer (HCC) (P rimary Dx) Start: 06-24-2022 End: 06-24-2022 ambulatory Chair 21 Chitra Work Phone: Hematology/Oncology Comment on above: Anal cancer (HCC) (P rimary Dx); POTS (postural orthostatic tachycardia syndrome) Start: 06-24-2022 End: 06-24-2022 Patient encounter procedure Gerardo Mckinnon APRN.CNP Work Phone: [facility] Start: 06-21-2022 End: 06-21-2022 ambulatory Chair 21 Chitra Work Phone: Hematology/Oncology Comment on above: Anal cancer (HCC) (P rimary Dx); POTS (postural orthostatic tachycardia syndrome) Start: 06-19-2022 Telephone encounter Leandra Whitehead Hematology/Oncology Comment on above: Care Coordination (O ral Anti-Cancer Agent Follow Up) Start: 06-19-2022 End: 06-19-2022 ambulatory Chair 21 Chitra Work Phone: Hematology/Oncology Comment on above: Anal cancer (HCC) (P rimary Dx); POTS (postural orthostatic tachycardia syndrome) Start: 06-19-2022 End: 06-19-2022 Patient encounter procedure Toribio Michaud MD Work Phone: Radiation Oncology Comment on above: Anal cancer (HCC) (P rimary Dx) Start: 06-18-2022 Refill Frida Ham leeroy [facility] Work Phone: Hematology/Oncology Comment on above: Refill Request Start: 06-17-2022 End: 06-17-2022 ambulatory Paco Bonds MD Work Phone: Hematology/Oncology Comment on above: Anal cancer (HCC) (P rimary Dx); POTS (postural orthostatic tachycardia syndrome) Start: 06-17-2022 End: 06-17-2022 Patient encounter procedure Paco Bonds MD Work Phone: [place] Start: 06-14-2022 Telephone encounter Magdalena Amaya RN Work Phone: Hematology/Oncology Comment on above: Care Coordination (M edication change) Start: 06-14-2022 End: 06-14-2022 ambulatory Chair Bryon Buenrostro Work Phone: Hematology/Oncology Comment on above: Anal cancer (HCC) (P rimary Dx); POTS (postural orthostatic tachycardia syndrome) Start: 06-12-2022 Telephone encounter Roman Jules MD Work Phone: Radiation Oncology Comment on above: Lab Orders Start: 06-03-2022 End: 06-03-2022 ambulatory Leandra Whitehead RN Work Phone: Hematology/Oncology Comment on above: Oral Anti-cancer Age nt Education (Capecitabine) Start: 06-03-2022 End: 06-03-2022 Nutrition therapy Carmina Forbes RD Work Phone: Nutrition Therapy Comment on above: Nutrition Assessment Start: 05-30-2022 End: 05-30-[address] Work Phone: [facility] Start: 05-30-2022 End: 05-30-2022 Nutrition therapy Carmina Forbes RD Work Phone: Nutrition Therapy Comment on above: Nutrition Telephone Start: 05-27-2022 End: 05-27-2022 ambulatory Paco Bonds MD Work Phone: Hematology/Oncology Comment on above: Anal cancer (HCC) (P rimary Dx); POTS (postural orthostatic tachycardia syndrome) Start: 05-27-2022 End: 05-27-2022 Patient encounter procedure Paco Bonds MD Work Phone: [facility] Comment on above: Anal cancer (HCC) (P rimary Dx) Start: 05-23-2022 Telephone encounter Leandra mcwilliams RN Work Phone: Hematology/Oncology Comment on above: Care Coordination (A ntiemetics) Start: 05-17-2022 Telephone encounter Frida Torres [facility] Work Phone: Hematology/Oncology Comment on above: Medication Update Start: 05-06-2022 End: 05-06-2022 ambulatory Heidi Horta LPN Radiation Oncology Comment on above: Patient Education Patient Education; O pened In Error Anal cancer (HCC) Start: 05-06-2022 End: 05-06-2022 Patient encounter procedure Paco Bonds MD Work Phone: [facility] Comment on above: Anal cancer (HCC) Start: 05-02-2022 End: 05-03-2022 ambulatory PHIL DOUGHERTY Facility:[facility] Start: 05-02-2022 End: 05-02-2022 Patient encounter procedure Phil Dougherty MD Work Phone: Colorectal Surgery Comment on above: Rectal mass (Primary Dx); Anal cancer (HCC) Start: 04-24-2022 End: 04-25-[address] VITALY VAUGHN Facility:[facility] Start: 04-23-2022 Encounter for preprocedural laboratory examination DR VITALY VAUGHN [facility] Start: 04-20-2022 End: 04-21-[address] VITALY VAUGHN Facility:[facility] Start: 04-20-2022 End: 04-21-2022 Encounter for preprocedural laboratory examination DR VITALY VAUGHN Facility:[facility] Start: 03-13-[address] VITALY VAUGHN Facilit y:[facility] Start: 03-09-[address] VITALY VAUGHN Facilit y:[facility] Start: 02-20-2022 End: 02-21-2022 ambulatory Vitaly VAUGHN Facility: [facility] Start: 02-20-2022 End: 02-20-2022 Patient encounter procedure Vitaly VAUGHN General Surgery [facility] [place] Start: 2022 ambulatory Sondra Liu Facility:[facility] [place] Start: 02-05-2022 Encounter for genera l adult medical examination without abnormal findings DR SONDRA LIU [facility] Start: 02-04-2022 End: 02-05-[address] SONDRA LIU Facility:[facility] Start: 02-04-2022 End: 02-05-2022 Encounter for general adult medical examination without abnormal findings DR SONDRA LIU Facility:[facility] Start: 12-28-2021 End: 12-29-[address] SONDRA LIU Facility:[facility] Start: 12-05-[address] SONDRA LIU Facility :[facility] Procedures Date Procedure Procedure Detail Performing Clinician Start: 09-29-2023 Mri pelvis w/o & w/contrast material Toribio Michaud MD Work Phone: Start: 10-11-2022 Mri pelvis w/o & w/contrast material Toribio Michaud MD Work Phone: Start: 08-01-2022 CBC panel - Blood by Automated count Toribio Michaud MD Work Phone: Start: 08-01-2022 Comprehensive metabolic panel Toribio Michaud MD Work Phone: Start: 07-17-2022 Blood count complete auto&auto difrntl wbc Paco Bonds MD Work Phone: Start: 07-10-2022 Blood count complete auto&auto difrntl wbc Paco Bonds MD Work Phone: Start: 06-24-2022 Blood count complete auto&auto difrntl wbc Paco Bonds MD Work Phone: Start: 06-14-2022 Blood count complete auto&auto difrntl wbc Paco Bonds MD Work Phone: Start: 07-14-2018 Esophagogastroduodenoscopy Vitaly VAUGHN Dilatation of esophageal stricture Vitaly VAUGHN Excision of cyst of ovary Mayelin montgomery R[place]ER[place] Plan of Treatment Date Care Activity Detail Author Start: 10-26-2026 Diabetes Screening Diabetes Screenin [facility] Start: 04-28-2026 Diabetes Screening Diabetes Screenin g [facility] Start: 10-28-2025 DIABETES SCREEN DIABETES SCREEN [facility] Start: 08-28-2025 DIABETES SCREEN DIABETES SCREEN [facility] Start: 08-01-2025 DIABETES SCREEN DIABETES SCREEN [facility] Start: 07-17-2025 DIABETES SCREEN DIABETES SCREEN [facility] Start: 07-10-2025 DIABETES SCREEN DIABETES SCREEN [facility] Start: 07-01-2025 DIABETES SCREEN DIABETES SCREEN [facility] Start: 06-24-2025 DIABETES SCREEN DIABETES SCREEN [facility] Start: 06-14-2025 DIABETES SCREEN DIABETES SCREEN [facility] Start: 05-27-2025 DIABETES SCREEN DIABETES SCREEN [facility] Start: 05-02-2025 DIABETES SCREEN DIABETES SCREEN [facility] Start: 10-26-2024 End: 11-25-2024 CT Abdomen W contrast IV CT ABDOMEN W IVCON Radiology Routine Expected: 10/26/2024, Expires: 11/25/2024 [facility] Comment on above: Expected: 10/26/2024 , Expires: 11/25/2024 Start: 10-26-2024 End: 11-25-2024 CT Chest W contrast IV CT CHEST W IVCON Radiology Routine Expected: 10/26/2024 (Approximate), Expires: 11/25/2024 [facility] Work Phone: Comment on above: Expected: 10/26/2024 (Approximate), Expires: 11/25/2024 Start: 10-26-2024 End: 11-25-2024 MR Pelvis WO contrast MRI RECTUM WO/W IVCON Radiology Routine Malignant neoplasm of pelvis (HCC) Expected: 10/26/2024 (Approximate), Expires: 11/25/2024 [facility] Comment on above: Expected: 10/26/2024 (Approximate), Expires: 11/25/2024 Start: 04-30-2024 End: 04-30-2024 Patient encounter procedure 04/30/2024 4:00 PM EDT Office Visit Colorectal Surgery [address] [place] [address] Phil Dougherty MD [address] [place] [address] est pt: 6 month follow up Colorectal Surgery Comment on above: est pt: 6 month foll ow up Start: 04-27-2024 End: 10-26-2024 CBC W Auto Differential panel - Blood COMPLETE BLOOD COUNT AND DIFFERENTIAL Lab Routine Anal cancer (HCC) POTS (postural orthostatic tachycardia syndrome) Expected: 04/27/2024 (Approximate), Expires: 10/26/2024 [facility] Work Phone: Comment on above: Expected: 04/27/2024 (Approximate), Expires: 10/26/2024 Start: 04-27-2024 End: 10-26-2024 Comprehensive metabolic 2000 panel - Serum or Plasma COMPREHENSIVE METABOLIC PANEL Lab Routine Anal cancer (HCC) POTS (postural orthostatic tachycardia syndrome) Expected: 04/27/2024 (Approximate), Expires: 10/26/2024 [facility] Work Phone: Comment on above: Expected: 04/27/2024 (Approximate), Expires: 10/26/2024 Start: 04-26-2024 End: 04-26-2024 Follow-up encounter 04/26/2024 2:45 PM EDT Visit (SP) Office Hematology/Oncology [address] [place] [address] Paco Bonds MD [address] [place] [address] 6 month follow up with lab Hematology/Oncology Comment on above: 6 month follow up [facility] Start: 04-26-2024 End: 04-26-2024 Patient encounter procedure 04/26/2024 2:30 PM EDT Office Visit [facility] [address] [place] [address] 6 month follow up with lab [facility] Comment on above: 6 month follow up [facility] Start: 03-14-2024 Influenza vaccination Influenz a Vaccine (Season Ended) [facility] Start: 10-28-2023 End: 04-28-2024 CBC W Auto Differential panel - Blood CBC + DIFF Lab Routine Anal cancer (HCC) POTS (postural orthostatic tachycardia syndrome) Expected: 10/28/2023 (Approximate), Expires: 04/28/2024 [facility] Work Phone: Comment on above: Expected: 10/28/2023 (Approximate), Expires: 04/28/2024 Start: 10-28-2023 End: 04-28-2024 Comprehensive metabolic 2000 panel - Serum or Plasma COMP METABOLIC PANEL Lab Routine Anal cancer (HCC) POTS (postural orthostatic tachycardia syndrome) Expected: 10/28/2023 (Approximate), Expires: 04/28/2024 [facility] Work Phone: Comment on above: Expected: 10/28/2023 (Approximate), Expires: 04/28/2024 Start: 07-25-2023 End: 12-05-2023 Ct thorax w/o contrast material CT CHEST WO IVCON Radiology Routine Malignant neoplasm of anus (HCC) Expected: 07/25/2023, Expires: 12/05/2023 [facility] Work Phone: Comment on above: Expected: 07/25/2023 , Expires: 12/05/2023 Start: 07-25-2023 End: 12-05-2023 Mri pelvis w/o & w/contrast material MRI RECTUM WO/W IVCON Radiology Routine Malignant neoplasm of anus (HCC) Expected: 07/25/2023, Expires: 12/05/2023 [facility] Work Phone: Comment on above: Expected: 07/25/2023 , Expires: 12/05/2023 Start: 07-14-2023 Behavioral Health Screening Be havioral Health Screening [facility] Start: 07-14-2023 Depression Assessment Depression Ass essment [facility] Start: 04-29-2023 End: 10-29-2023 CBC W Auto Differential panel - Blood CBC + DIFF Lab Routine Anal cancer (HCC) POTS (postural orthostatic tachycardia syndrome) Expected: 04/29/2023 (Approximate), Expires: 10/29/2023 [facility] Work Phone: Comment on above: Expected: 04/29/2023 (Approximate), Expires: 10/29/2023 Start: 04-29-2023 End: 10-29-2023 Comprehensive metabolic 2000 panel - Serum or Plasma COMP METABOLIC PANEL Lab Routine Anal cancer (HCC) POTS (postural orthostatic tachycardia syndrome) Expected: 04/29/2023 (Approximate), Expires: 10/29/2023 [facility] Work Phone: Comment on above: Expected: 04/29/2023 (Approximate), Expires: 10/29/2023 Start: 04-28-2023 End: 06-28-2023 25-hydroxyvitamin D3 [Mass/volume] in Serum or Plasma VITAMIN D 25 HYDROXY Lab Routine Encounter for screening for osteoporosis Symptomatic menopausal or female climacteric states Rectal cancer (HCC) Expected: 04/28/2023, Expires: 06/28/2023 [facility] Work Phone: Comment on above: Expected: 04/28/2023 , Expires: 06/28/2023 Start: 03-14-2023 Covid-19 Vaccine () Covid-19 Vaccine () [facility] Start: 03-14-2023 Influenza vaccination [facility] Start: 12-02-2022 End: 09-04-2023 CBC W Auto Differential panel - Blood CBC + DIFF Lab Routine POTS (postural orthostatic tachycardia syndrome) Anal cancer (HCC) Expected: 12/02/2022 (Approximate), Expires: 09/04/2023 [facility] Work Phone: Comment on above: Expected: 12/02/2022 (Approximate), Expires: 09/04/2023 Start: 12-02-2022 End: 09-04-2023 Comprehensive metabolic 2000 panel - Serum or Plasma COMP METABOLIC PANEL Lab Routine POTS (postural orthostatic tachycardia syndrome) Anal cancer (HCC) Expected: 12/02/2022 (Approximate), Expires: 09/04/2023 [facility] Work Phone: Comment on above: Expected: 12/02/2022 (Approximate), Expires: 09/04/2023 Start: 10-14-2022 End: 10-04-2023 Mri pelvis w/o & w/contrast material MRI RECTUM WO/W IVCON Radiology Routine Malignant neoplasm of anus (HCC) Expected: 10/14/2022, Expires: 10/04/2023 [facility] Work Phone: Comment on above: Expected: 10/14/2022 , Expires: 10/04/2023 Start: 08-28-2022 End: 07-17-2023 CBC W Auto Differential panel - Blood CBC + DIFF Lab Routine Anal cancer (HCC) Expected: 08/28/2022 (Approximate), Expires: 07/17/2023 [facility] Work Phone: Comment on above: Expected: 08/28/2022 (Approximate), Expires: 07/17/2023 Start: 08-28-2022 End: 07-17-2023 Comprehensive metabolic 2000 panel - Serum or Plasma COMP METABOLIC PANEL Lab Routine Anal cancer (HCC) Expected: 08/28/2022 (Approximate), Expires: 07/17/2023 [facility] Work Phone: Comment on above: Expected: 08/28/2022 (Approximate), Expires: 07/17/2023 Start: 08-28-2022 End: 08-16-2023 Ct abdomen & pelvis w/contrast material CT ABD/PEL W IVCON Radiology Routine Anal cancer (HCC) Expected: 08/28/2022 (Approximate), Expires: 08/16/2023 [facility] Work Phone: Comment on above: Expected: 08/28/2022 (Approximate), Expires: 08/16/2023 Start: 08-28-2022 End: 08-16-2023 CT CHEST W IVCON CT CHEST W IVCON Radiology Routine Anal cancer (HCC) Expected: 08/28/2022 (Approximate), Expires: 08/16/2023 [facility] Work Phone: Comment on above: Expected: 08/28/2022 (Approximate), Expires: 08/16/2023 Start: 07-14-2022 DEPRESSION ASSESSMENT DEPRESSION ASS ESSMENT [facility] Start: 07-02-2022 End: 09-01-2022 CBC W Auto Differential panel - Blood CBC + DIFF Lab Routine Anal cancer (HCC) POTS (postural orthostatic tachycardia syndrome) Expected: 07/02/2022, Expires: 09/01/2022 [facility] Work Phone: Comment on above: Expected: 07/02/2022 , Expires: 09/01/2022 Start: 07-02-2022 End: 09-01-2022 Comprehensive metabolic 2000 panel - Serum or Plasma COMP METABOLIC PANEL Lab Routine Anal cancer (HCC) POTS (postural orthostatic tachycardia syndrome) Expected: 07/02/2022, Expires: 09/01/2022 [facility] Work Phone: Comment on above: Expected: 07/02/2022 , Expires: 09/01/2022 Start: 06-12-2022 End: 08-12-2022 Choriogonadotropin ( test) [Presence] in Urine HCG QUAL UR Lab Routine Anal cancer (HCC) Expected: 06/12/2022, Expires: 08/12/2022 [facility] Work Phone: Comment on above: Expected: 06/12/2022 , Expires: 08/12/2022 Start: 03-14-2022 Influenza vaccination INFLUENZA (#1) [facility] Start: 07-14-2021 DEPRESSION ASSESSMENT DEPRESSION ASS ESSMENT [facility] Start: 2019 SHINGRIX VACCINE (1 of 2) CHURCH GRIX VACCINE (1 of 2) [facility] Start: 2014 COLOGUARD (FIT-DNA) COLOGUARD (FIT-D NA) [facility] Start: 2014 Colonoscopy COLONOSCOPY [facility] Start: 2014 COLORECTAL CANCER SCREENING CO LORECTAL CANCER SCREENING [facility] Start: [address] COLONOGRAPHY [facility] Start: 2014 FECAL OCCULT BLOOD FECAL OCCULT BLOO D [facility] Start: 2014 Lipid 1996 panel - S christine or Plasma Lipid Screening [facility] Start: 2014 Lipid panel Lipid Screening [facility] Start: 2014 LIPID SCREEN LIPID SCREEN [facility] Start: 2014 Screening for malign ant neoplasm of colon [facility] Start: 2014 SIGMOIDOSCOPY SIGMOIDOSCOPY [facility] Start: 2009 Mammography [facility] Start: 2009 Screening for malign ant neoplasm of breast Mammogram Screening [facility] Start: 1999 HPV TESTING HPV TESTING [facility] Start: 1999 Screening for malign ant neoplasm of cervix HPV Testing [facility] Start: 1990 PAP TESTING PAP TESTING [facility] Start: 1990 Screening for malign ant neoplasm of cervix Pap Testing [facility] Start: 02-08-1988 Hepatitis B Vaccine (1 of 3 - 19+ 3-dose series) Hepatitis B Vaccine (1 of 3 - 19+ 3-dose series) [facility] Start: 02-08-1988 SHINGRIX VACCINE (1 of 2) CHURCH GRIX VACCINE (1 of 2) [facility] Start: 02-08-1988 Urine microalbumin profile [facility] Start: 1987 HEPATITIS C SCREENING HEPATITIS C [facility] Start: 1987 Hepatitis C screening Hepatitis C [facility] Start: 1987 HIV SCREENING HIV SCREENING [facility] Start: 1987 HIV screening HIV Screening [facility] Start: 1975 PNEUMOCOCCAL (1 - PCV) PNEUMOCOCCAL (1 - PCV) [facility] Start: 1969 COVID-19 VACCINE (#1) COVID-19 VACCI NE (#1) [facility] Start: 1969 HEPATITIS B (1 of 3 - 3-dose series) HEPATITIS B (1 of 3 - 3-dose series) [facility] Start: 1969 Hepatitis B Vaccine (1 of 3 - 3-dose series) Hepatitis B Vaccine (1 of 3 - 3-dose series) [facility] End: 05-27-2023 CBC W Auto Differential panel - Blood CBC + DIFF Lab Routine Anal cancer (HCC) Once per week for 10 Occurrences starting 05/27/2022 until 05/27/2023, 1 completed [facility] Work Phone: Comment on above: Once per week for 10 Occurrences starting 05/27/2022 until 05/27/2023, 1 completed End: 05-27-2023 Comprehensive metabolic 2000 panel - Serum or Plasma COMP METABOLIC PANEL Lab Routine Anal cancer (HCC) Once per week for 10 Occurrences starting 05/27/2022 until 05/27/2023, 1 completed [facility] Work Phone: Comment on above: Once per week for 10 Occurrences starting 05/27/2022 until 05/27/2023, 1 completed End: 06-01-2023 Ct abdomen w/contrast material CT ABDOMEN W IVCON Radiology Routine Anal cancer (HCC) 1 Occurrences starting 05/02/2022 until 06/01/2023 [facility] Work Phone: Comment on above: 1 Occurrences starti ng 05/02/2022 until 06/01/2023 End: 06-01-2023 CT CHEST W IVCON CT CHEST W IVCON Radiology Routine Anal cancer (HCC) 1 Occurrences starting 05/02/2022 until 06/01/2023 [facility] Work Phone: Comment on above: 1 Occurrences starti ng 05/02/2022 until 06/01/2023 End: 10-11-2024 CT Chest WO contrast CT CHEST WO IVCON Radiology Routine Malignant neoplasm of anus (HCC) 1 Occurrences starting 09/12/2023 until 10/11/2024 [facility] Work Phone: Comment on above: 1 Occurrences starti ng 09/12/2023 until 10/11/2024 CT SIM PLANNING RADI ATION ONCOLOGY CT SIM PLANNING RADIATION ONCOLOGY Radiology Routine Anal cancer (HCC) Ordered: 05/27/2022 [facility] Work Phone: Comment on above: Ordered: 05/27/2022 End: 03-11-2024 DXA-AXIAL SKELETON DXA-AXIAL SKELETON Radiology Routine Encounter for screening for osteoporosis Symptomatic menopausal or female climacteric states Rectal cancer (HCC) 1 Occurrences starting 02/12/2023 until 03/11/2024 [facility] Work Phone: Comment on above: 1 Occurrences starti ng 02/12/2023 until 03/11/2024 End: 10-11-2024 MR Abdomen WO and W contrast IV MRI ABDOMEN WO/W IVCON Radiology Routine Malignant neoplasm of anus (HCC) 1 Occurrences starting 09/12/2023 until 10/11/2024 [facility] Work Phone: Comment on above: 1 Occurrences starti ng 09/12/2023 until 10/11/2024 End: 10-11-2024 MR Pelvis WO contrast MRI RECTUM WO/W IVCON Radiology Routine Malignant neoplasm of anus (HCC) 1 Occurrences starting 09/12/2023 until 10/11/2024 [facility] Work Phone: Comment on above: 1 Occurrences starti ng 09/12/2023 until 10/11/2024 End: 06-01-2023 Mri pelvis w/o & w/contrast material MRI RECTUM WO/W IVCON Radiology Routine Anal cancer (HCC) 1 Occurrences starting 05/02/2022 until 06/01/2023 [facility] Work Phone: Comment on above: 1 Occurrences starti ng 05/02/2022 until 06/01/2023 [facility] Payers Date Payer Category Payer Medicaid [id number] 2013 Unknown [facility] O [id number] 2013-Present [phone] [address] [place] [address] [facility] [id number] 1969 Unknown [id number] 1969 Unknown [id number] 1969 Unknown [id number] 1969 Unknown [id number] 1969 Unknown [id number] 1969 Unknown [id number] 1969 Unknown [id number] 1969 Unknown [id number] 1969 Unknown [id number] 1969 Unknown [id number] 1969 Unknown [id number] 1960 Medicaid [id number] 1960 Private Health Insurance [id number] 1960 Self-pay [id number] Social History Date Type Detail Facility Start: 02-20-2022 End: 05-06-2022 Tobacco smoking status Never smoked tobacco (finding) [facility] Tobacco smoking status Never [facility] Start: 01-16-2023 End: 10-26-2023 Sex Assigned At Female [facility] Start: 05-02-2022 End: 05-06-2022 Tobacco use and exposure Smokeless tobacco non-user [facility] Start: 05-02-2022 End: 12-12-2023 Alcohol intake Current non-drinker of alcohol (finding) [facility] Start: 1970 Sex Assigned At Not on file [facility] Start: 04-22-2022 End: 05-02-2022 Exposure to SARS-CoV-2 (event) Yes [facility] Start: 04-26-2022 End: 06-17-2022 Exposure to SARS-CoV-2 (event) Not sure [facility] Start: 01-16-2023 End: 10-26-2023 History of Social function [facility] NEGATED: Highlighted rowStart: NINF History of tobacco use Passive smoker [facility] Functional Status Date Assessment Result Facility 02-20-2022 Functional Status N/A [facility] Clinical Notes 02-20-2022 to 12-12-2023 Phil Dougherty MD - 12/12/2023 2:00 PM [facility] - 10/31/2023 4:11 PM Phil Lacy MD - 10/31/2023 4:00 PM Toribio Harding MD - 10/27/2023 2:52 PM EDTPatient Instructions Note Date & Type Note Facility 12-12-2023 History of Present illness Narrative COLORECTAL SURGERY December 12, 2023 Kirt Reyna 53 year old Chief Complaint: diarrhea, anal itching History of Present Illness: Kirt Reyna is a 53 year old female presents today for evaluation of diarrhea and anal itching. She has a h/o anal cancer and was last seen on 10/31/23 for surveillance. 53-year-old female the above-stated history. She had a few days where her stools were thin and had some itching but this has now resolved. She just wanted to get checked out to make sure everything was okay PAST MEDICAL HISTORY Diagnosis Date Hiatal hernia POTS (postural orthostatic tachycardia syndrome) POTS (postural orthostatic tachycardia syndrome) 05/27/2022 Vertigo 1970 PAST SURGICAL HISTORY Procedure Laterality Date D&C, DIAG AND/OR THERAPEUTIC molar OVARIAN CYSTECTOMY UNI/BI Current Outpatient Medications Medication Sig Dispense Refill CALCIUM ORAL Take by mouth once daily. cholecalciferol, vitamin D3, (VITAMIN D3 ORAL) Take by mouth once daily. multivit-min/ferrous fumarate (MULTI VITAMIN ORAL) Take by mouth once daily. (Patient not taking: Reported on 10/27/2023) ondansetron (ZOFRAN) 8 mg tablet TAKE 1 TABLET BY MOUTH EVERY 8 HOURS NEEDED FOR NAUSEA AND VOMITING (Patient taking differently: As needed) 90 tablet 1 Akbvtrmrc-Aindstjyepxixn-Qugt 2.8-0.55 % gel Use 1 Applicator by RECTAL route twice daily as needed. (Patient not taking: Reported on 07/11/2023) 100 g 0 multivitamin tablet Take 1 tablet by mouth once daily. acetaminophen/diphenhydramine (TYLENOL PM EXTRA STRENGTH ORAL) Take 500 mg by mouth as needed. fludrocortisone (FLORINEF) 0.1 mg tablet TAKE 0.5 TABLET BY MOUTH TWICE A DAY No current facility-administered medications for this visit. ALLERGIES Allergen Reactions Penicillin G Unknown Sulfa (Sulfonamide * Unknown FAMILY HISTORY Problem Relation Age of Onset other (cysts [Other]) Mother other (parkinson [Other]) Father Diabetes Father Social History Tobacco Use Smoking status: Never Passive exposure: Never Smokeless tobacco: Never Vaping Use Vaping Use: Never used Substance Use Topics Alcohol use: No Drug use: No Physical Exam: BP 140/75 (BP Site: Right Arm, BP Position: Sitting) Pulse 81 Temp 36.3 C (97.3 F) Ht 170.2 cm (5' 7 ) Wt 80.3 kg (177 lb) SpO2 100% BMI 27.72 kg/m General Appearance: Well appearing, alert, in no acute distress, well-hydrated, well nourished. Anorectal: External exam reveals no lesions. Digital rectal exam reveals no gross blood or masses Bankruptcy Legal Assistant present: Yes, Padmini Garcia Anoscopy: The patient was placed in chest-knee position. After digital exam with a lubricated finger, the scope was easily inserted. Posterior scar noted. Otherwise normal mucosa was noted. Anoscopy completed. Assessment Assessment and Plan: Kirt Reyna is a 53 year old female with history of anal cancer and a few days of thin stools that have resolved. Everything looks fine and she is back to her baseline. She will continue with her surveillance plan and return to see me in April as previously scheduled Medical Decision Making: Data Reviewed: Tests & Documents Reviewed/ordered: Review of prior notes from myself Review of Imaging: CT Abdomen, MRI Pelvis, CT Chest Review of Labs: CBC, BMP, LFT, Albumin Review of Procedures / Tests: Colonoscopy I have independently interpreted: CT Abdomen, MRI Pelvis, CT Chest Risk of morbidity, mortality and/or complications of treatment plan: high Phil Dougherty MD Colorectal Surgery documented in this encounter [facility] 12-12-2023 Note HNO ID: [id number] Author: PHIL DOUGHERTY MD Service: ? Author Type: Physician Type: Progress Notes Filed: 12/12/2023 14:11 Note Text: COLORECTAL SURGERY December 12, 2023 Kirt Reyna 53 year old Chief Complaint: diarrhea, anal itching History of Present Illness: Kirt Reyna is a 53 year old female presents today for evaluation of diarrhea and anal itching. She has a h/o anal cancer and was last seen on 10/31/23 for surveillance. 53-year-old female the above-stated history. She had a few days where her stools were thin and had some itching but this has now resolved. She just wanted to get checked out to make sure everything was okay PAST MEDICAL HISTORY Diagnosis Date Hiatal hernia POTS (postural orthostatic tachycardia syndrome) POTS (postural orthostatic tachycardia syndrome) 05/27/2022 Vertigo 1969 PAST SURGICAL HISTORY Procedure Laterality Date DANDC, DIAG AND/OR THERAPEUTIC molar OVARIAN CYSTECTOMY UNI/BI Current Outpatient Medications Medication Sig Dispense Refill CALCIUM ORAL Take by mouth once daily. cholecalciferol, vitamin D3, (VITAMIN D3 ORAL) Take by mouth once daily. multivit-min/ferrous fumarate (MULTI VITAMIN ORAL) Take by mouth once daily. (Patient not taking: Reported on 10/27/2023) ondansetron (ZOFRAN) 8 mg tablet TAKE 1 TABLET BY MOUTH EVERY 8 HOURS NEEDED FOR NAUSEA AND VOMITING (Patient taking differently: As needed) 90 tablet 1 Proiojkew-Dtxelqeigmxclu-Pogt 2.8-0.55 % gel Use 1 Applicator by RECTAL route twice daily as needed. (Patient not taking: Reported on 07/11/2023) 100 g 0 multivitamin tablet Take 1 tablet by mouth once daily. acetaminophen/diphenhydramine (TYLENOL PM EXTRA STRENGTH ORAL) Take 500 mg by mouth as needed. fludrocortisone (FLORINEF) 0.1 mg tablet TAKE 0.5 TABLET BY MOUTH TWICE A DAY No current facility-administered medications for this visit. ALLERGIES Allergen Reactions Penicillin G Unknown Sulfa (Sulfonamide * Unknown FAMILY HISTORY Problem Relation Age of Onset other (cysts [Other]) Mother other (parkinson [Other]) Father Diabetes Father Social History Tobacco Use Smoking status: Never Passive exposure: Never Smokeless tobacco: Never Vaping Use Vaping Use: Never used Substance Use Topics Alcohol use: No Drug use: No Physical Exam: BP 140/75 (BP Site: Right Arm, BP Position: Sitting) Pulse 81 Temp 36.3 ?C (97.3 ?F) Ht 170.2 cm (5' 7 ) Wt 80.3 kg (177 lb) SpO2 100% BMI 27.72 kg/m? General Appearance: Well appearing, alert, in no acute distress, well-hydrated, well nourished. Anorectal: External exam reveals no lesions. Digital rectal exam reveals no gross blood or masses Bankruptcy Legal Assistant present: Yes, Padmini Garcia Anoscopy: The patient was placed in chest-knee position. After digital exam with a lubricated finger, the scope was easily inserted. Posterior scar noted. Otherwise normal mucosa was noted. Anoscopy completed. Assessment Assessment and Plan: Kirt Reyna is a 53 year old female with history of anal cancer and a few days of thin stools that have resolved. Everything looks fine and she is back to her baseline. She will continue with her surveillance plan and return to see me in April as previously scheduled Medical Decision Making: Data Reviewed: Tests AND Documents Reviewed/ordered: Review of prior notes from myself Review of Imaging: CT Abdomen, MRI Pelvis, CT Chest Review of Labs: CBC, BMP, LFT, Albumin Review of Procedures / Tests: Colonoscopy I have independently interpreted: CT Abdomen, MRI Pelvis, CT Chest Risk of morbidity, mortality and/or complications of treatment plan: high Phil Dougherty MD Colorectal Surgery [facility] 10-31-2023 Nurse Note What is the reason for your visit today? F/u, anal cancer surveillance Who is your referring physician? Are you having poor oral intake? NO Have you had unintentional weight loss of 15 lbs/7 Kg in the last 3-6 months? NO Bowels: regular Wound: Temperature: No Drains: No documented in this encounter [facility] 10-31-2023 History of Present illness Narrative COLORECTAL SURGERY October 31, 2023 Kirt Reyna 53 year old Chief Complaint: anal cancer surveillance History of Present Illness: Kirt Reyna is a 53 year old female presents today for anal cancer surveillance. Last seen 07/11/23. CT chest 10/01/23 1. Stable subcentimeter pulmonary nodules which are likely benign. 2. No significant thoracic adenopathy. MRI abdomen 09/29/23 No metastatic disease in the abdomen. 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 No metastatic disease in the pelvis. Feels great. No pain. Tolerating diet with good bowel function. No bleeding PAST MEDICAL HISTORY Diagnosis Date Hiatal hernia POTS (postural orthostatic tachycardia syndrome) POTS (postural orthostatic tachycardia syndrome) 05/27/2022 Vertigo 1969 PAST SURGICAL HISTORY Procedure Laterality Date D&C, DIAG AND/OR THERAPEUTIC molar OVARIAN CYSTECTOMY UNI/BI Current Outpatient Medications Medication Sig Dispense Refill CALCIUM ORAL Take by mouth once daily. cholecalciferol, vitamin D3, (VITAMIN D3 ORAL) Take by mouth once daily. multivit-min/ferrous fumarate (MULTI VITAMIN ORAL) Take by mouth once daily. ondansetron (ZOFRAN) 8 mg tablet TAKE 1 TABLET BY MOUTH EVERY 8 HOURS NEEDED FOR NAUSEA AND VOMITING 90 tablet 1 Oyxznnblm-Khvjydxbvjlcal-Awgg 2.8-0.55 % gel Use 1 Applicator by RECTAL route twice daily as needed. (Patient not taking: Reported on 07/11/2023) 100 g 0 multivitamin tablet Take 1 tablet by mouth once daily. acetaminophen/diphenhydramine (TYLENOL PM EXTRA STRENGTH ORAL) Take 500 mg by mouth as needed. fludrocortisone (FLORINEF) 0.1 mg tablet TAKE 0.5 TABLET BY MOUTH TWICE A DAY No current facility-administered medications for this visit. ALLERGIES Allergen Reactions Penicillin G Unknown Sulfa (Sulfonamide * Unknown FAMILY HISTORY Problem Relation Age of Onset other (cysts [Other]) Mother other (parkinson [Other]) Father Diabetes Father Social History Tobacco Use Smoking status: Never Passive exposure: Never Smokeless tobacco: Never Vaping Use Vaping Use: Never used Substance Use Topics Alcohol use: No Drug use: No Physical Exam: BP 143/68 Pulse 90 Temp 36.2 C (97.1 F) SpO2 100% General Appearance: Well appearing, alert, in no acute distress, well-hydrated, well nourished. Abdomen: No inguinal lymphadenopathy Anorectal: External exam reveals no lesions. Digital rectal exam reveals no gross blood or masses Bankruptcy Legal Assistant present: Yes, Padmini Garcia Anoscopy: The patient was placed in chest-knee position. After digital exam with a lubricated finger, the scope was easily inserted. Posterior anal canal scar noted. Otherwise normal mucosa was noted. Anoscopy completed. Assessment Assessment and Plan: Kirt Reyna is a 53 year old female with anal cancer status post chemoradiation without any evidence of disease recurrence. She will return to see me in 6 months for another inguinal lymph node exam and surveillance anoscopy Medical Decision Making: Data Reviewed: Tests & Documents Reviewed/ordered: Review of prior notes from myself Review of Pathology Review of Imaging: CT Abdomen, CT Pelvis, MRI Pelvis Review of Labs: CBC, BMP, LFT, Albumin Review of Procedures / Tests: Colonoscopy I have independently interpreted: CT Abdomen, CT Pelvis Risk of morbidity, mortality and/or complications of treatment plan: high Phil Dougherty MD Colorectal Surgery documented in this encounter [facility] 10-31-2023 Note HNO ID: [id number] Author: PHIL DOUGHERTY MD Service: ? Author Type: Physician Type: Progress Notes Filed: 10/31/2023 17:32 Note Text: COLORECTAL SURGERY October 31, 2023 Kirt Reyna 53 year old Chief Complaint: anal cancer surveillance History of Present Illness: Kirt Reyna is a 53 year old female presents today for anal cancer surveillance. Last seen 07/11/23. CT chest 10/01/23 1. Stable subcentimeter pulmonary nodules which are likely benign. 2. No significant thoracic adenopathy. MRI abdomen 09/29/23 No metastatic disease in the abdomen. 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 No metastatic disease in the pelvis. Feels great. No pain. Tolerating diet with good bowel function. No bleeding PAST MEDICAL HISTORY Diagnosis Date Hiatal hernia POTS (postural orthostatic tachycardia syndrome) POTS (postural orthostatic tachycardia syndrome) 05/27/2022 Vertigo 1969 PAST SURGICAL HISTORY Procedure Laterality Date DANDC, DIAG AND/OR THERAPEUTIC molar OVARIAN CYSTECTOMY UNI/BI Current Outpatient Medications Medication Sig Dispense Refill CALCIUM ORAL Take by mouth once daily. cholecalciferol, vitamin D3, (VITAMIN D3 ORAL) Take by mouth once daily. multivit-min/ferrous fumarate (MULTI VITAMIN ORAL) Take by mouth once daily. ondansetron (ZOFRAN) 8 mg tablet TAKE 1 TABLET BY MOUTH EVERY 8 HOURS NEEDED FOR NAUSEA AND VOMITING 90 tablet 1 Rlxxfraip-Hfuztxpwbblkuw-Wddb 2.8-0.55 % gel Use 1 Applicator by RECTAL route twice daily as needed. (Patient not taking: Reported on 07/11/2023) 100 g 0 multivitamin tablet Take 1 tablet by mouth once daily. acetaminophen/diphenhydramine (TYLENOL PM EXTRA STRENGTH ORAL) Take 500 mg by mouth as needed. fludrocortisone (FLORINEF) 0.1 mg tablet TAKE 0.5 TABLET BY MOUTH TWICE A DAY No current facility-administered medications for this visit. ALLERGIES Allergen Reactions Penicillin G Unknown Sulfa (Sulfonamide * Unknown FAMILY HISTORY Problem Relation Age of Onset other (cysts [Other]) Mother other (parkinson [Other]) Father Diabetes Father Social History Tobacco Use Smoking status: Never Passive exposure: Never Smokeless tobacco: Never Vaping Use Vaping Use: Never used Substance Use Topics Alcohol use: No Drug use: No Physical Exam: BP 143/68 Pulse 90 Temp 36.2 ?C (97.1 ?F) SpO2 100% General Appearance: Well appearing, alert, in no acute distress, well-hydrated, well nourished. Abdomen: No inguinal lymphadenopathy Anorectal: External exam reveals no lesions. Digital rectal exam reveals no gross blood or masses Bankruptcy Legal Assistant present: Yes, Padmini Garcia Anoscopy: The patient was placed in chest-knee position. After digital exam with a lubricated finger, the scope was easily inserted. Posterior anal canal scar noted. Otherwise normal mucosa was noted. Anoscopy completed. Assessment Assessment and Plan: Kirt Reyna is a 53 year old female with anal cancer status post chemoradiation without any evidence of disease recurrence. She will return to see me in 6 months for another inguinal lymph node exam and surveillance anoscopy Medical Decision Making: Data Reviewed: Tests AND Documents Reviewed/ordered: Review of prior notes from myself Review of Pathology Review of Imaging: CT Abdomen, CT Pelvis, MRI Pelvis Review of Labs: CBC, BMP, LFT, Albumin Review of Procedures / Tests: Colonoscopy I have independently interpreted: CT Abdomen, CT Pelvis Risk of morbidity, mortality and/or complications of treatment plan: high Phil Dougherty MD Colorectal Surgery [facility] 10-27-2023 Note HNO ID: [id number] Author: TORIBIO MICHAUD MD Service: ? Author Type: Physician Type: Progress Notes Filed: 11/11/2023 05:24 Note Text: Radiation Oncology - Follow Up Note PATIENT NAME: Kirt Reyna PATIENT DIAGNOSIS/PATIENT IDENTIFICATION: Ms. 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 She completed a course of definitive concurrent chemoradiation therapy on 07/25/2022 (5600 cGy delivered in 28 fractions with partial course of Xeloda) INTERVAL HISTORY/ROS: Ms. Reyna returns to clinic today for routine follow-up approximately fifteen months after the completion of her radiation treatments and one year since her last visit on 10/28/2022. In the interim, she had her annual surveillance imaging with MRI of the abdomen/rectum on 09/29/[address] of the chest on 10/01/2023 showing treated anorectal neoplasm without evidence viable tumor and no evidence of regional or distant metastatic disease. She also met with Dr. Dougherty on 07/11/2023 with anoscopy revealing posterior anal scar with no evidence of disease recurrence. Today she reports doing well and denies any pain/discomfort in the pelvis or perianal area and reports fairly regular bowel movements without blood or pain or fecal incontinence. She denies any skin breakdown or irritation in the area and use a moisturizer daily. She denies any urinary issues or vaginal irritation or nausea. She endorses stable energy appetite and hydration with stable weight. She has chronic lower back pain but otherwise denies any recent fevers, chills, headaches, difficulty with speech/swallowing, shortness of breath, chest pain/palpitations, abdominal pain, nausea, vomiting, change in bowel/urinary habits, difficulty with gait/balance, recent falls, etc. The remainder of the review of systems was performed and was otherwise noncontributory. ALLERGIES ALLERGIES Allergen Reactions Penicillin G Unknown Sulfa (Sulfonamide * Unknown MEDICATIONS: Current Outpatient Medications: CALCIUM ORAL cholecalciferol, vitamin D3, (VITAMIN D3 ORAL) multivit-min/ferrous fumarate (MULTI VITAMIN ORAL) ondansetron (ZOFRAN) 8 mg tablet Jfxbawkyp-Xspzwucjoxxfjb-Smeb 2.8-0.55 % gel multivitamin tablet acetaminophen/diphenhydramine (TYLENOL PM EXTRA STRENGTH ORAL) fludrocortisone (FLORINEF) 0.1 mg tablet PHYSICAL EXAM: GENERAL: middle-aged woman sitting in chair in no acute distress. VITALS: There were no vitals taken for this visit. KPS: 90 HEENT: NC/AT, anicteric sclera HEART: S1S2 LUNGS: non-labored breathing ABDOMEN: soft MUSCULOSKELETAL: no peripheral edema, moves all extremities. NEURO: no focal deficit; AANDO X3. RADIOLOGIC DATA: MRI Rectum (09/29/2023) IMPRESSION: Treated anorectal neoplasm without evident viable tumor. No metastatic disease in the pelvis. MRI Abdomen (09/29/2023) IMPRESSION: No metastatic disease in the abdomen. CT Chest (10/01/2023) IMPRESSION: 1. Stable subcentimeter pulmonary nodules which are likely benign. 2. No significant thoracic adenopathy. ASSESSMENT AND PLAN: Ms. Reyna is a 53-year-old woman with [id number] squamous cell carcinoma of the anal canal. She completed a course of definitive concurrent chemoradiation therapy on 07/25/2022 (5600 cGy delivered in 28 fractions with partial course of Xeloda). Ms. Reyna is doing well clinically approximately 15 months after the completion of her chemoradiation treatments to the pelvis with no significant residual sequela at this time. She is without radiographic or clinical evidence of disease based on her recent imaging with MRI of the abdomen/rectum as well as CT chest from September showing no local regional evidence of disease as well as her endoscopy from June with Dr. Douhgerty also showing anal scar without concern for disease recurrence. She will continue her follow-up and surveillance with Dr. Dougherty and I will plan to see her back in approximately 1 year with repeat imaging. The patient is aware to contact the clinic in the interim should any questions or concerns arise. Thank you for allowing us to participate in the care of this patient. Signed by: Toribio Michaud MD I spent a total of 20 minutes on the date of the service which included preparing to see the patient, [id number] patient care, and counseling and educating the patient/family/caregiver. This document has been created with the use of voice recognition technology. It may contain inaccuracies, misspellings, inaccurate syntax or inappropriate word context that are a result of the inadequacies/shortcomings of said technology/software. [facility] 10-27-2023 History of Present illness Narrative Radiation Oncology - Follow Up Note PATIENT NAME: Kirt Reyna PATIENT DIAGNOSIS/PATIENT IDENTIFICATION: Ms. Reyna is a 53-year-old woman with [id number] squamous cell carcinoma of the anal canal. She completed a course of definitive concurrent chemoradiation therapy on 07/25/2022 (5600 cGy delivered in 28 fractions with partial course of Xeloda) INTERVAL HISTORY/ROS: Ms. Reyna returns to clinic today for routine follow-up approximately fifteen months after the completion of her radiation treatments and one year since her last visit on 10/28/2022. In the interim, She otherwise denies any recent fevers, chills, headaches, difficulty with speech/swallowing, shortness of breath, chest pain/palpitations, abdominal pain, nausea, vomiting, change in bowel/urinary habits, difficulty with gait/balance, recent falls, etc. The remainder of the review of systems was performed and was otherwise noncontributory. ALLERGIES ALLERGIES Allergen Reactions Penicillin G Unknown Sulfa (Sulfonamide * Unknown MEDICATIONS: Current Outpatient Medications: CALCIUM ORAL cholecalciferol, vitamin D3, (VITAMIN D3 ORAL) multivit-min/ferrous fumarate (MULTI VITAMIN ORAL) ondansetron (ZOFRAN) 8 mg tablet Ufjmhoubb-Hlehaxtgrmjuur-Kqhj 2.8-0.55 % gel multivitamin tablet acetaminophen/diphenhydramine (TYLENOL PM EXTRA STRENGTH ORAL) fludrocortisone (FLORINEF) 0.1 mg tablet PHYSICAL EXAM: GENERAL: middle-aged woman sitting in chair in no acute distress. VITALS: There were no vitals taken for this visit. KPS: 90 HEENT: NC/AT, anicteric sclera HEART: S1S2 LUNGS: non-labored breathing ABDOMEN: soft MUSCULOSKELETAL: no peripheral edema, moves all extremities. NEURO: no focal deficit; A&O X3. RADIOLOGIC DATA: MRI Rectum (09/29/2023) IMPRESSION: Treated anorectal neoplasm without evident viable tumor. No metastatic disease in the pelvis. MRI Abdomen (09/29/2023) IMPRESSION: No metastatic disease in the abdomen. CT Chest (10/01/2023) IMPRESSION: 1. Stable subcentimeter pulmonary nodules which are likely benign. 2. No significant thoracic adenopathy. ASSESSMENT AND PLAN: Ms. Reyna is a 53-year-old woman with [id number] squamous cell carcinoma of the anal canal. She completed a course of definitive concurrent chemoradiation therapy on 07/25/2022 (5600 cGy delivered in 28 fractions with partial course of Xeloda) Signed by: Toribio Michaud MD I spent a total of 20 minutes on the date of the service which included preparing to see the patient, ijyp-tj-meko patient care, and counseling and educating the patient/family/caregiver. This document has been created with the use of voice recognition technology. It may contain inaccuracies, misspellings, inaccurate syntax or inappropriate word context that are a result of the inadequacies/shortcomings of said technology/software. documented in this encounter [facility] 10-27-2023 Instructions Adri Gilbert - 10/27/2023 2:40 PM EDT RTC in 6 months - coordinate same day with Dr. Michaud Labs on return - CBC, CMP documented in this encounter [facility] 10-27-2023 Nurse Note Patient does have chronic back pain, she is starting physical therapy. Radha Lunsford MA documented in this encounter [facility] 10-27-2023 History of Present illness Narrative Images from the original note were not included. NAME: Kirt Reyna NO.: [id number] DATE OF SERVICE: October 27, 2023 (Vamshi) Some elements in this clinic note that are critical to medical decision making have been carefully reviewed and included from a prior clinic note dated: April 28, 2023 (Vamshi) Referring Provider: Dr. Phil Dougherty Additional Clinicians involved in Kirt Reyna's care: Dr. Sondra Liu, Dr. Vitaly Vaughn, Dr. 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 Chemo RT started 06/13/2022. Stopped Xeloda pills on 07/01/2022 due to developing POTS symptoms. Good response ~ 1 month following RT. Continued response after treatment conclusion with abbreviated Xeloda. PLAN: RTC in 6 months - coordinate same day with Dr. Michaud Labs on return - CBC, CMP HPI: CASE HISTORY: Reverse Chronological Order 10/22/2023 - US Breast RT: Diagnostic category: 2 Scattered benign-appearing nodules are present. Scattered benign-appearing calcifications are present. Scattered benign-appearing lymph nodes are present. 10/22/2023 - Diagnostic Mammogram BI: Diagnostic category: 2 Right breast: No significant suspicious finding Left breast: Stable nodules. Ultrasound demonstrated 2 unchanged oval areas of hypoechogenicity without color flow measuring 1.0 and 0.3 cm in size. Given lack of change from the prior exam, I favor complex cysts. 10/01/2023 - CT Chest: Stable subcentimeter pulmonary nodules which are likely benign. No significant thoracic adenopathy. 09/29/2023 - MRIs: Abdomen: No metastatic disease in the abdomen. Rectum: Treated anorectal neoplasm without evident viable tumor. No metastatic disease in the pelvis. 08/19/2023 - XR Lumbar Spine: 11mm anterolisthesis of L5 on S1 04/30/2023 - Diagnostic Mammogram LT & US Breast BI: Diagnostic category: 3 Ultrasound of the right breast demonstrates 2 focal oval areas of hypoechogenicity without definitive color flow. At the 10 o'clock position is a 1.0 x 0.4 x 0.8 cm lesion. At the 10 o'clock position is 2nd oval hypodense lesion measuring 2.7 x 2.7 x 2.8 mm. These correspond to the mammographic abnormalities and complex cysts are favored. Three spot magnifications views of the left breast demonstrate compression of the density in the upper outer quadrant with geographic microcalcifications, nonspecific. No ultrasound abnormality. 04/08/2023 - Screening Mammogram: Right breast: No significant suspicious finding. Several well-circumscribed nodules are noted in the upper outer quadrant, difficult to see on prior non tomographic images. Left breast: New area of focal asymmetry upper outer quadrant with microcalcifications, posterior breast. 02/17/2023 - DXA bone density Consistent with osteopenia. 10/11/2022 - MRI Rectum - MARKED INTERVAL DECREASE IN SIZE OF ANORECTAL TUMOR, WITH A SMALL FOCUS OF RESIDUAL VIABLE TUMOR REMAINING 08/28/2022 - CT CAP - Subcentimeter right-sided lung nodules, unchanged. 1.4 cm right rectal mass, decreased in conspicuity. 07/01/2022 - CT CAP - Chest sub-cm nodule, Abd/Pelvis - 1.4 cm rectal mass decreased (5.2 cm prior MRI) 06/24/2022 - Xeloda dose reduced to 1000 mg BID M-F d/t intolerance 06/13/2022 - Started chemo/radiation with xeloda 1500 mg BID M-F 05/21/2022 - MRI Rectum: Anorectal tumor invading sphincter and with extension through right lower rectal wall into the mesorectal fat - broad based abutment of iliococcygeus muscle. MR - T3 N0 05/21/2022 - CT CAP: 1.8 cm sclerotic focus in prox right humerus - likely benign, 0.4 cm non-calcified pulmonary nodules, otherwise negative for metastatic disease. 04/24/2022 - Sigmoidoscopy, Dr. Vaughn: Rectal exam revealed a larger rectal mass in the right posterior lateral area, taking up approximately a third of the circumference, measured approximately 3.5 cm. 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 Oncoprotein p16 diffusely (+) 02/20/2022 - Rectal mass identified - Delay in subsequent workup due to patient's concern with debilitating POTS. 2019 - POTS diagnosed just as COVID-19 hit. Updated Visit, October 27, 2023: Cherie returns today, doing well overall. She mentions back pain and will be starting PT soon. Recent imaging shows ANABELLE in the rectum and abdomen and benign breast nodules. She follows with breast center for this too. Her weight is stable since last visit, although she notes difficulty maintaining since menopause - we discussed intermittent fasting. Updated Visit, April 28, 2023: Doing well. However, osteopenia was noted on recent DEXA. Encouraged her to pursue weightbearing exercises. Mammograms and US next week - will follow with sushi chef for exam. Labs stable. Updated Visit, October 28, 2022: Cherie returns and is doing well. Excellent progress on imaging as well as on exam per Dr. Dougherty. Labs stable. Updated Visit, September 04, 2022: Cherie returns to review scans - she is doing very well and very happy with results. Labs are stable. Reviewed images with her. Updated Visit, July 17, 2022: Anorectal region is sore especially after she passes a stool. Finishes scans next week Will restage in 6 weeks Updated Visit, July 10, 2022: Kirt Reyna returns for follow-up. She remains on radiation Friday through Friday. Due to the holidays and whether there has been some delay in treatment. She has 8 more radiation treatments. The Xeloda has been on hold since 07/01/2022. She has made it clear at this time she has no interest in resuming Xeloda. She is worried that the Xeloda is causing a flareup in her POTS. She was having dizziness and an elevated heart rate. She states that her blood pressure is now getting better controlled off of Xeloda. She is having extreme pain to her rectum from the radiation. She denies any blood in her stools. Her stools are now thin in size which she states is from the inflammation from radiation. She has purchased Preparation H with lidocaine. She denies fevers, chills and signs/symptoms of infection. She has the sweats which she states is from starting menopause. Overall, she is doing fairly well today. Updated Visit, July 01, 2022: Cherie returns for follow up. Starting having POTS symptoms on . Was worse over the weekend. Had dizziness, heart racing, BP dropping. She did not pass out. Denies fevers, chills, nausea or vomiting. She describes her stool as fluctuating between constipation and diarrhea. She is having some rectal pain and burning. She did also have one mouth sore that is healing up. Her feet are now tender down to the ball of the foot. Hands are not bothering her. Updated Visit, June 24, 2022: Kirt Reyna returns for follow-up. She remains on Xeloda 1000 mg twice daily concurrent with radiation Friday through Friday. She has developed some mouth sores. Her tongue has been bothering her. She had intermittent diarrhea and also constipation. She is not taking anything for either the diarrhea or constipation. She noticed a lot of mucus in her stool which she actually felt might be part of the tumor. She denies blood in her stools. No hand-foot syndrome. She denies fevers, chills, night sweats and signs/symptoms of infection. Updated Visit, June 17, 2022: Doing well overall after reducing the dose of Xeloda to 1000 mg BID. Nausea a little better. Hands and feet are ok. Will continue IV hydration prophylactically. Updated Visit, May 27, 2022: Cherie is doing well and has no incontinence. We reviewed her imaging together and shared concerns of extent of involvement with sphincter pressing the need for adding chemotherapy. Xeloda will be daily on days of RT. Her biggest concern is regarding POTS. Mother Myrna is with her POTS closely associated with EDS and she has hypermobility. Also can be associated with platelet dysfunction but she has not demonstrated any bleeding tendencies. Consider Genetic counseling in future. Initial Visit, May 06, 2022: Kirt Reyna presents today Hematology and Oncology evaluation. She is a 52 year old female who has a history of significantly symptomatic POTS for which she is on Florinef, who has been diagnosed with Anal Ca presenting with intermittent rectal bleeding that became progressively more frequent. Her fiance Garrick Youssef was unable to accompany her but she has plenty of support at home She additionally reports: Molar in 1993, subsequent successful of her daughter in 1995 and son in 2003. She is not incontinent and pain is well managed. REVIEW OF SYSTEMS Per HPI and otherwise negative by full review of organ systems. ECOG PERFORMANCE STATUS: 0 PHYSICAL EXAMINATION: Vitals: BP 144/65 Pulse 93 Temp (Src) 97 (Temporal) Resp 16 Ht 5' 7.008 (1.70m) Wt 177 lb 4 oz (80.4kg) SpO2 99% BMI 27.75 kg/(m^2). Body surface area is 1.95 meters squared. Exam limited to gross visualization where appropriate. Gen.: This is an age-appropriate patient in no acute distress. Head: Appears atraumatic with no visible lesions. Eyes: Pupils equally round and reactive to light, extraocular muscles are intact. Neck: Supple. Respiratory: Appears to be respiring comfortably. Neurologic: Nonfocal to gross visualization. Alert and oriented 3. Psychiatric: No evidence of inappropriate anxiety or depression. Skin: Visible areas of skin without rash, lesions, wounds or petechiae. ALLERGIES: ALLERGIES Allergen Reactions Penicillin G Unknown Sulfa (Sulfonamide * Unknown MEDICATIONS: CALCIUM ORAL Take by mouth once daily. cholecalciferol, vitamin D3, (VITAMIN D3 ORAL) Take by mouth once daily. ondansetron (ZOFRAN) 8 mg tablet TAKE 1 TABLET BY MOUTH EVERY 8 HOURS NEEDED FOR NAUSEA AND VOMITING (Patient taking differently: As needed) multivitamin tablet Take 1 tablet by mouth once daily. acetaminophen/diphenhydramine (TYLENOL PM EXTRA STRENGTH ORAL) Take 500 mg by mouth as needed. fludrocortisone (FLORINEF) 0.1 mg tablet TAKE 0.5 TABLET BY MOUTH TWICE A DAY iv contrast (will be provided with radiology test) CT Chest W -Inject, intravenously, once for 1 dose.No IV access, insert saline lock prior to the beginning of sedation, infusion, injection of imaging exam. Discontinue saline lock post exam. If Pt. has a central line or IVAD, may access for administration according to line specific nursing protocol. Once exam is complete flush line and de-access according to line specific nursing protocol in the CT contrast administration guidelines link. iv contrast (will be provided with radiology test) CT ABD W -Inject, intravenously, once for 1 dose.No IV access, insert saline lock prior to the beginning of sedation, infusion, injection of imaging exam. Discontinue saline lock post exam. If Pt. has a central line or IVAD, may access for administration according to line specific nursing protocol. Once exam is complete flush line and de-access according to line specific nursing protocol in the CT contrast administration guidelines link. enteric contrast (will be provided with radiology test) For CT ABD W IVCON order Administer, As Directed One Time Only, via Oral, Rectal, both Oral and Rectal, Enteric Tube, Stoma or Indwelling Catheter, Enteric Contrast as designated per enteric contrast guidelines iv contrast (will be provided with radiology test) MRI Rectum Inject, intravenously, once for 1 dose. No IV access, insert saline lock prior to the beginning of sedation, infusion, injection of imaging exam. Discontinue saline lock post exam. If Pt has a central line or IVAD, may access for administration according to line specific nursing protocol. Once exam is complete flush line and de-access according to line specific nursing protocol in the MR contrast administration guidelines link. enteric contrast (will be provided with radiology test) MRI RECTUM WO/W. Administer, As Directed One Time Only, via Oral, Rectal, both Oral and Rectal, Enteric Tube, Stoma or Indwelling Catheter, Enteric Contrast as designated per enteric contrast guidelines multivit-min/ferrous fumarate (MULTI VITAMIN ORAL) Take by mouth once daily. (Patient not taking: Reported on 10/27/2023) Cxtjlsdcb-Otbiuuwojnkuia-Axxl 2.8-0.55 % gel Use 1 Applicator by RECTAL route twice daily as needed. (Patient not taking: Reported on 07/11/2023) LABORATORY VALUES: WBC (k/uL) Date Value 10/27/2023 4.74 RBC (m/uL) Date Value 10/27/2023 4.34 Hemoglobin (g/dL) Date Value 10/27/2023 12.8 Hematocrit (%) Date Value 10/27/2023 38.0 MCV (fL) Date Value 10/27/2023 87.6 MCH (pg) Date Value 10/27/2023 29.5 MCHC (g/dL) Date Value 10/27/2023 33.7 RDW-CV (%) Date Value 10/27/2023 12.9 Platelet Count (k/uL) Date Value 10/27/2023 238 MPV (fL) Date Value 10/27/2023 9.9 Glucose (mg/dL) Date Value 10/27/2023 126 (H) BUN (mg/dL) Date Value 10/27/2023 20 Creatinine (mg/dL) Date Value 10/27/2023 0.68 Sodium (mmol/L) Date Value 10/27/2023 139 Potassium (mmol/L) Date Value 10/27/2023 3.7 Chloride (mmol/L) Date Value 10/27/2023 102 CO2 (mmol/L) Date Value 10/27/2023 26 Protein, Total (g/dL) Date Value 10/27/2023 7.2 Albumin (g/dL) Date Value 10/27/2023 4.2 Calcium, Total (mg/dL) Date Value 10/27/2023 9.7 Alkaline Phosphatase (U/L) Date Value 10/27/2023 108 Bilirubin, Total (mg/dL) Date Value 10/27/2023 0.2 AST (U/L) Date Value 10/27/2023 22 ALT (U/L) Date Value 10/27/2023 20 DIAGNOSIS: (C21.0) Anal cancer (HCC) (primary encounter diagnosis) Plan: COMPLETE BLOOD COUNT AND DIFFERENTIAL, COMPREHENSIVE METABOLIC PANEL (G90.A) POTS (postural orthostatic tachycardia syndrome) Plan: COMPLETE BLOOD COUNT AND DIFFERENTIAL, COMPREHENSIVE METABOLIC PANEL PAST MEDICAL HISTORY Diagnosis Date Hiatal hernia POTS (postural orthostatic tachycardia syndrome) POTS (postural orthostatic tachycardia syndrome) 05/27/2022 Vertigo 1969 PAST SURGICAL HISTORY Procedure Laterality Date D&C, DIAG AND/OR THERAPEUTIC molar OVARIAN CYSTECTOMY UNI/BI Social History Tobacco Use Smoking status: Never Passive exposure: Never Smokeless tobacco: Never Vaping Use Vaping Use: Never used Substance Use Topics Alcohol use: No Drug use: No FAMILY HISTORY Problem Relation Age of Onset other (cysts [Other]) Mother other (parkinson [Other]) Father Diabetes Father I spent a total of 30 minutes on the date of the service which included preparing to see the patient, [id number] patient care, completing clinical documentation, obtaining and/or reviewing separately obtained history, performing a medically appropriate examination, counseling and educating the patient/family/caregiver, ordering medications, tests, or procedures, independently interpreting results (not separately reported), communicating results to the patient/family/caregiver, and care coordination (not separately reported). Paco Bonds MD, CPE H[facility]ology [facility] Oncology Services Provided at: [place], [place] Scribe Attestation: This note was scribed by Adri Gilbert on October 27, 2023 under the direction and supervision of Dr. Paco Bonds. I attest that all of the information documented is correct to the best of my knowledge. Provider Attestation: I, Paco Bonds MD, attest that all information documented by the above scribe is correct, and was supervised by me and under my direction. CC: Dr. Phil Liu documented in this encounter [facility] 10-27-2023 Note HNO ID: [id number] Author: PACO BONDS MD Service: ? Author Type: Physician Type: Progress Notes Filed: 10/28/2023 14:27 Note Text: NAME: Kirt Reyna [facility] NO.: [id number] DATE OF SERVICE: October 27, 2023 (Vam[facility]) Some elements in this clinic note that are critical to medical decision making have been carefully reviewed and included from a prior clinic note dated: April 28, 2023 ([facility]) Referring Provider: Dr. Phil Dougherty Additional Clinicians involved in Kirt Reyna's care: Dr. Sondra Liu, Dr. Vitaly Vaughn, Dr. 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 Chemo RT started 06/13/2022. Stopped Xeloda pills on 07/01/2022 due to developing POTS symptoms. Good response ~ 1 month following RT. Continued response after treatment conclusion with abbreviated Xeloda. PLAN: RTC in 6 months - coordinate same day with Dr. Michaud Labs on return - CBC, CMP ____ HPI: CASE HISTORY: Reverse Chronological Order 10/22/2023 - Breast RT: Diagnostic category: 2 Scattered benign-appearing nodules are present. Scattered benign-appearing calcifications are present. Scattered benign-appearing lymph nodes are present. 10/22/2023 - Diagnostic Mammogram BI: Diagnostic category: 2 Right breast: No significant suspicious finding Left breast: Stable nodules. Ultrasound demonstrated 2 unchanged oval areas of hypoechogenicity without color flow measuring 1.0 and 0.3 cm in size. Given lack of change from the prior exam, I favor complex cysts. 10/01/2023 - CT Chest: Stable subcentimeter pulmonary nodules which are likely benign. No significant thoracic adenopathy. 09/29/2023 - MRIs: Abdomen: No metastatic disease in the abdomen. Rectum: Treated anorectal neoplasm without evident viable tumor. No metastatic disease in the pelvis. 08/19/2023 - XR Lumbar Spine: 11mm anterolisthesis of L5 on S1 04/30/2023 - Diagnostic Mammogram LT AND US Breast BI: Diagnostic category: 3 Ultrasound of the right breast demonstrates 2 focal oval areas of hypoechogenicity without definitive color flow. At the 10 o'clock position is a 1.0 x 0.4 x 0.8 cm lesion. At the 10 o'clock position is 2nd oval hypodense lesion measuring 2.7 x 2.7 x 2.8 mm. These correspond to the mammographic abnormalities and complex cysts are favored. Three spot magnifications views of the left breast demonstrate compression of the density in the upper outer quadrant with geographic microcalcifications, nonspecific. No ultrasound abnormality. 04/08/2023 - Screening Mammogram: Right breast: No significant suspicious finding. Several well-circumscribed nodules are noted in the upper outer quadrant, difficult to see on prior non tomographic images. Left breast: New area of focal asymmetry upper outer quadrant with microcalcifications, posterior breast. 02/17/2023 - DXA bone density Consistent with osteopenia. 10/11/2022 - MRI Rectum - MARKED INTERVAL DECREASE IN SIZE OF ANORECTAL TUMOR, WITH A SMALL FOCUS OF RESIDUAL VIABLE TUMOR REMAINING 08/28/2022 - CT CAP - Subcentimeter right-sided lung nodules, unchanged. 1.4 cm right rectal mass, decreased in conspicuity. 07/01/2022 - CT CAP - Chest sub-cm nodule, Abd/Pelvis - 1.4 cm rectal mass decreased (5.2 cm prior MRI) 06/24/2022 - Xeloda dose reduced to 1000 mg BID M-F d/t intolerance 06/13/2022 - Started chemo/radiation with xeloda 1500 mg BID M-F 05/21/2022 - MRI Rectum: Anorectal tumor invading sphincter and with extension through right lower rectal wall into the mesorectal fat - broad based abutment of iliococcygeus muscle. MR - T3 N0 05/21/2022 - CT CAP: 1.8 cm sclerotic focus in prox right humerus - likely benign, 0.4 cm non-calcified pulmonary nodules, otherwise negative for metastatic disease. 04/24/2022 - Sigmoidoscopy, Dr. Vaughn: Rectal exam revealed a larger rectal mass in the right posterior lateral area, taking up approximately a third of the circumference, measured approximately 3.5 cm. 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 Oncoprotein p16 diffusely (+) 02/20/2022 - Rectal mass identified - Delay in subsequent workup due to patient's concern with debilitating POTS. 2019 - POTS diagnosed just as COVID-19 hit. Updated Visit, October 27, 2023: Cherie returns today, doing well overall. She mentions back pain and will be starting PT soon. Recent imaging shows ANABELLE in the rectum and abdomen and benign breast nodules. She follows with breast center for this too. Her weight is stable since last visit, although she notes difficulty maintaining since menopause - we discussed intermittent fasting. Updated Visit, April 28, 2023: Doing well. (more content not included)... [facility] 10-01-2023 Note HNO ID: [id number] Author: NURA ESCOBAR RT(R) Service: ? Author Type: Technologist Type: Progress Notes Filed: 10/01/2023 10:42 Note Text: Radiology Service Progress Note PATIENT NAME: Kirt Reyna DATE OF SERVICE: October 01, 2023 TIME: 10:42 AM PATIENT IDENTITY VERIFICATION COMPLETED USING TWO (2) IDENTIFIERS: Name and Date of confirmed by patient verbally. FALL SCREENING: Has the patient had 2 falls in the last year or 1 fall with injury or currently using an Ambulatory Assistive Device (Walker, Cane, Wheelchair, Crutches, etc.)? No PATIENT GENDER DATA: Female. status: : No status: NO. PATIENT RELEVANT IMPLANT DATA REVIEWED: Not Applicable PATIENT PRESENTS WITH AN IMPLANTABLE OR ATTACHED SUPERINTENDENT OF SCHOOLS: No RADIOLOGY DEPARTMENT: CT; Exam(s) Completed: Chest PERIPHERAL IV DATA: Not applicable SIGNED BY: RT Kimberly(R) October 01, 2023 10:42 AM [facility] 09-29-2023 Note HNO ID: [id number] Author: JOSE R BERNARD RRT Service: Radiology Author Type: Environmental Auditor Type: Progress Notes Filed: 09/29/2023 13:33 Note Text: Radiology Service Progress Note DATE OF SERVICE: September 29, 2023 TIME: 1:33 PM PATIENT IDENTITY VERIFICATION COMPLETED USING TWO (2) STANDARD IDENTIFIERS: Name and Date of confirmed by patient verbally. FALL SCREENING: Has the patient had 2 falls in the last year or 1 fall with injury or currently using an Ambulatory Assistive Device (Walker, Cane, Wheelchair, Crutches, etc.)? No PATIENT GENDER DATA: Female. status: : No status: NO. PATIENT RELEVANT IMPLANT DATA REVIEWED: Yes PATIENT PRESENTS WITH AN IMPLANTABLE OR ATTACHED SUPERINTENDENT OF SCHOOLS: No ALLERGIES: Reviewed and unchanged CONTRAST ALLERGY: NO. EXAM: MRI - CONTRAST TYPE: GROUP II PERIPHERAL IV DATA: Ambulatory: A peripheral IV was started in the Right antecubital site with a Angio cath: 24 gauge. RADIOLOGY DEPARTMENT: MR; Exam(s) Completed: Body: Liver (routine) and Rectal SIGNATURE: Jose R Bernard RRT PATIENT NAME: Kirt Reyna DATE: September 29, 2023 TIME: 1:33 PM [facility] 09-29-2023 History of Present illness Narrative Radiology Service Progress Note DATE OF SERVICE: September 29, 2023 TIME: 1:33 PM PATIENT IDENTITY VERIFICATION COMPLETED USING TWO (2) STANDARD IDENTIFIERS: Name and Date of confirmed by patient verbally. FALL SCREENING: Has the patient had 2 falls in the last year or 1 fall with injury or currently using an Ambulatory Assistive Device (Walker, Cane, Wheelchair, Crutches, etc.)? No PATIENT GENDER DATA: Female. status: : No status: NO. PATIENT RELEVANT IMPLANT DATA REVIEWED: Yes PATIENT PRESENTS WITH AN IMPLANTABLE OR ATTACHED SUPERINTENDENT OF SCHOOLS: No ALLERGIES: Reviewed and unchanged CONTRAST ALLERGY: NO. EXAM: MRI - CONTRAST TYPE: GROUP II PERIPHERAL IV DATA: Ambulatory: A peripheral IV was started in the Right antecubital site with a Angio cath: 24 gauge. RADIOLOGY DEPARTMENT: MR; Exam(s) Completed: Body: Liver (routine) and Rectal SIGNATURE: Jose R Bernard RRT PATIENT NAME: Kirt Reyna DATE: September 29, 2023 TIME: 1:33 PM documented in this encounter [facility] 09-18-2023 Miscellaneous Notes Discussed with patient and she is in agreement with plan. Eliza Ceballos RN NCCN guidelines recommend either 1. CT chest abdomen pelvis with IV contrast OR 2 CT chest wo contrast & MRI Abdomen/Pelvis with contrast annually for surveillance ... I was going with the latter option. Thanks! Toribio Dr Michaud- it looks like the MRI Abdomen has not been ordered in the past. Is this to follow up on the renal mass on CT? Please advise so we know what to explain to patient. Thank you! Eliza Ceballos RN Called patient to schedule her scans, she stated this is not how they are usually ordered? Not sure what she means by that not sure if you guys could call her and ask.. I know she called Friday but Shari was over there, thanks! Orders placed ... Thanks! Toribio Hi, can you please place a new MRI order for patient, thank you so much. documented in this encounter [facility] 07-11-2023 Note HNO ID: [id number] Author: Phil Dougherty MD Service: ? Author Type: Physician Type: Progress Notes Filed: 07/11/2023 2:54 PM Note Text: COLORECTAL SURGERY July 11, 2023 Kirt Reyna 53 year old Chief Complaint: anal cancer surveillance History of Present Illness: Kirt Reyna is a 53 year old female presents today for anal cancer surveillance. Last seen 01/16/23 Doing well. No pain. Normal bowel movements. No bleeding PAST MEDICAL HISTORY Diagnosis Date Hiatal hernia POTS (postural orthostatic tachycardia syndrome) POTS (postural orthostatic tachycardia syndrome) 05/27/2022 Vertigo 1969 PAST SURGICAL HISTORY Procedure Laterality Date DANDC, DIAG AND/OR THERAPEUTIC molar OVARIAN CYSTECTOMY UNI/BI Current Outpatient Medications Medication Sig Dispense Refill CALCIUM ORAL Take by mouth once daily. cholecalciferol, vitamin D3, (VITAMIN D3 ORAL) Take by mouth once daily. multivit-min/ferrous fumarate (MULTI VITAMIN ORAL) Take by mouth once daily. ondansetron (ZOFRAN) 8 mg tablet TAKE 1 TABLET BY MOUTH EVERY 8 HOURS NEEDED FOR NAUSEA AND VOMITING 90 tablet 1 Qwvnpvbfl-Nsjcuazkeihing-Rqyd 2.8-0.55 % gel Use 1 Applicator by RECTAL route twice daily as needed. 100 g 0 multivitamin tablet Take 1 tablet by mouth once daily. acetaminophen/diphenhydramine (TYLENOL PM EXTRA STRENGTH ORAL) Take 500 mg by mouth as needed. fludrocortisone (FLORINEF) 0.1 mg tablet TAKE 0.5 TABLET BY MOUTH TWICE A DAY No current facility-administered medications for this visit. ALLERGIES Allergen Reactions Penicillin G Unknown Sulfa (Sulfonamide * Unknown FAMILY HISTORY Problem Relation Age of Onset other (cysts [Other]) Mother other (parkinson [Other]) Father Diabetes Father Social History Tobacco Use Smoking status: Never Passive exposure: Never Smokeless tobacco: Never Vaping Use Vaping Use: Never used Substance Use Topics Alcohol use: No Drug use: No Physical Exam: BP 140/65 (BP Site: Right Arm, BP Position: Sitting, BP Cuff Size: Regular Adult) Pulse 85 Temp 36.3 ?C (97.3 ?F) SpO2 100% General Appearance: Well appearing, alert, in no acute distress, well-hydrated, well nourished. Abdomen: no inguinal lymphadenopathy. Anorectal: External exam reveals no lesions. Digital rectal exam reveals no gross blood or masses Bankruptcy Legal Assistant present: Yes, Padmini Garcia Anoscopy: The patient was placed in chest-knee position. After digital exam with a lubricated finger, the scope was easily inserted. Posterior anal canal scar noted. Otherwise normal mucosa was noted. Anoscopy completed. Assessment Assessment and Plan: Kirt Reyna is a 53 year old female with anal cancer status post chemoradiation with no evidence of residual disease. Dr. Michaud is setting up her surveillance imaging. She will return to see me in 4 months for another anoscopy and inguinal lymph node exam Medical Decision Making: Data Reviewed: Tests AND Documents Reviewed/ordered: Review of prior notes from myself Review of Pathology Review of Imaging: CT Abdomen, CT Pelvis, CT Chest Review of Labs: CBC, BMP, LFT Review of Procedures / Tests: Colonoscopy I have independently interpreted: CT Abdomen, CT Pelvis, CT Chest Risk of morbidity, mortality and/or complications of treatment plan: high Phil Dougherty MD Colorectal Surgery [facility] 05-27-2023 Miscellaneous Notes LVM for patient regarding the need to reschedule Colorectal appt with Dr. Dougherty on 05/29/2023. Provider not longer comes to [employer] message sent. documented in this encounter [facility] 04-28-2023 Instructions Paco Bonds MD - 04/28/2023 2:22 PM EDT RTC in 6 months MRI Pelvis / Rectum and CT chest scans due in July per Dr. Michaud. Labs on return - cbc, cmp documented in this encounter [facility] 04-28-2023 Note HNO ID: [id number] Author: Paco Bonds MD Service: ? Author Type: Physician Type: Progress Notes Filed: 04/29/2023 8:16 PM Note Text: NAME: Kirt Reyna CLINIC NO.: [id number] DATE OF SERVICE: April 28, 2023 (Vamshi) Some elements in this clinic note that are critical to medical decision making have been carefully reviewed and included from a prior clinic note dated: October 28, 2022 (Vamshi) Referring Provider: Dr. Phil Dougherty Additional Clinicians involved in Kirt Reyna's care: Dr. Sondra Liu, Dr. Vitaly Vaughn, Dr. 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 Chemo RT started 06/13/2022. Stopped Xeloda pills on 07/01/2022 due to developing POTS symptoms. Good response ~ 1 month following RT. Continued response after treatment conclusion with abbreviated Xeloda. PLAN: RTC in 6 months MRI Pelvis / Rectum and CT chest scans due in July per Dr. Michaud. Labs on return - cbc, cmp HPI: CASE HISTORY: 02/17/2023 DXA bone density consistent with osteopenia. 10/11/2022 - MRI Rectum - MARKED INTERVAL DECREASE IN SIZE OF ANORECTAL TUMOR, WITH A SMALL FOCUS OF RESIDUAL VIABLE TUMOR REMAINING 08/28/2022 - CT CAP - Subcentimeter right-sided lung nodules, unchanged. 1.4 cm right rectal mass, decreased in conspicuity. 07/01/2022 - CT CAP - Chest sub-cm nodule, Abd/Pelvis - 1.4 cm rectal mass decreased (5.2 cm prior MRI) 06/24/2022 - Xeloda dose reduced to 1000 mg BID M-F d/t intolerance 06/13/2022 - Started chemo/radiation with xeloda 1500 mg BID M-F 05/21/2022 - MRI Rectum: Anorectal tumor invading sphincter and with extension through right lower rectal wall into the mesorectal fat - broad based abutment of iliococcygeus muscle. MR - T3 N0 05/21/2022 - CT CAP: 1.8 cm sclerotic focus in prox right humerus - likely benign, 0.4 cm non-calcified pulmonary nodules, otherwise negative for metastatic disease. 04/24/2022 - Sigmoidoscopy, Dr. Vaughn: Rectal exam revealed a larger rectal mass in the right posterior lateral area, taking up approximately a third of the circumference, measured approximately 3.5 cm. 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 Oncoprotein p16 diffusely (+) 02/20/2022 - Rectal mass identified - delay in subsequent workup due to patient's concern with debilitating POTS. 2019 - POTS diagnosed just as COVID-19 hit. Updated Visit, April 28, 2023: Doing well. However, osteopenia was noted on recent DEXA. Encouraged her to pursue weightbearing exercises. Mammograms and US next week - will follow with sushi chef for exam. Labs stable. Updated Visit, October 28, 2022: Cherie returns and is doing well. Excellent progress on imaging as well as on exam per Dr. Dougherty. Labs stable. Updated Visit, September 04, 2022: Cherie returns to review scans - she is doing very well and very happy with results. Labs are stable. Reviewed images with her. Updated Visit, July 17, 2022: Anorectal region is sore especially after she passes a stool. Finishes scans next week Will restage in 6 weeks Updated Visit, July 10, 2022: Kirt Reyna returns for follow-up. She remains on radiation Friday through Friday. Due to the holidays and whether there has been some delay in treatment. She has 8 more radiation treatments. The Xeloda has been on hold since 07/01/2022. She has made it clear at this time she has no interest in resuming Xeloda. She is worried that the Xeloda is causing a flareup in her POTS. She was having dizziness and an elevated heart rate. She states that her blood pressure is now getting better controlled off of Xeloda. She is having extreme pain to her rectum from the radiation. She denies any blood in her stools. Her stools are now thin in size which she states is from the inflammation from radiation. She has purchased Preparation H with lidocaine. She denies fevers, chills and signs/symptoms of infection. She has the sweats which she states is from starting menopause. Overall, she is doing fairly well today. Updated Visit, July 01, 2022: Cherie returns for follow up. Starting having POTS symptoms on . Was worse over the weekend. Had dizziness, heart racing, BP dropping. She did not pass out. Denies fevers, chills, nausea or vomiting. She describes her stool as fluctuating between constipation and diarrhea. She is having some rectal pain and burning. She did also have one mouth sore that is healing up. Her feet are now tender down to the ball of the foot. Hands are not bothering her. Updated Visit, June 24, 2022: Kirt Reyna returns for follow-up. She remains on Xeloda 1000 mg twice daily concurrent with ra (more content not included)... [facility] 04-28-2023 History of Present illness Narrative Images from the original note were not included. NAME: Kirt Reyna [facility] NO.: [id number] DATE OF SERVICE: April 28, 2023 ([facility]) Some elements in this clinic note that are critical to medical decision making have been carefully reviewed and included from a prior clinic note dated: October 28, 2022 (Vamshi) Referring Provider: Dr. Phil Dougherty Additional Clinicians involved in Kirt Reyna's care: Dr. Sondra Liu, Dr. Vitaly Vaughn, Dr. 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 Chemo RT started 06/13/2022. Stopped Xeloda pills on 07/01/2022 due to developing POTS symptoms. Good response ~ 1 month following RT. Continued response after treatment conclusion with abbreviated Xeloda. PLAN: RTC in 6 months MRI Pelvis / Rectum and CT chest scans due in July per Dr. Michaud. Labs on return - cbc, cmp HPI: CASE HISTORY: 02/17/2023 DXA bone density consistent with osteopenia. 10/11/2022 - MRI Rectum - MARKED INTERVAL DECREASE IN SIZE OF ANORECTAL TUMOR, WITH A SMALL FOCUS OF RESIDUAL VIABLE TUMOR REMAINING 08/28/2022 - CT CAP - Subcentimeter right-sided lung nodules, unchanged. 1.4 cm right rectal mass, decreased in conspicuity. 07/01/2022 - CT CAP - Chest sub-cm nodule, Abd/Pelvis - 1.4 cm rectal mass decreased (5.2 cm prior MRI) 06/24/2022 - Xeloda dose reduced to 1000 mg BID M-F d/t intolerance 06/13/2022 - Started chemo/radiation with xeloda 1500 mg BID M-F 05/21/2022 - MRI Rectum: Anorectal tumor invading sphincter and with extension through right lower rectal wall into the mesorectal fat - broad based abutment of iliococcygeus muscle. MR - T3 N0 05/21/2022 - CT CAP: 1.8 cm sclerotic focus in prox right humerus - likely benign, 0.4 cm non-calcified pulmonary nodules, otherwise negative for metastatic disease. 04/24/2022 - Sigmoidoscopy, Dr. Vaughn: Rectal exam revealed a larger rectal mass in the right posterior lateral area, taking up approximately a third of the circumference, measured approximately 3.5 cm. 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 Oncoprotein p16 diffusely (+) 02/20/2022 - Rectal mass identified - delay in subsequent workup due to patient's concern with debilitating POTS. 2019 - POTS diagnosed just as COVID-19 hit. Updated Visit, April 28, 2023: Doing well. However, osteopenia was noted on recent DEXA. Encouraged her to pursue weightbearing exercises. Mammograms and US next week - will follow with sushi chef for exam. Labs stable. Updated Visit, October 28, 2022: Cherie returns and is doing well. Excellent progress on imaging as well as on exam per Dr. Dougherty. Labs stable. Updated Visit, September 04, 2022: Cherie returns to review scans - she is doing very well and very happy with results. Labs are stable. Reviewed images with her. Updated Visit, July 17, 2022: Anorectal region is sore especially after she passes a stool. Finishes scans next week Will restage in 6 weeks Updated Visit, July 10, 2022: Kirt Reyna returns for follow-up. She remains on radiation Friday through Friday. Due to the holidays and whether there has been some delay in treatment. She has 8 more radiation treatments. The Xeloda has been on hold since 07/01/2022. She has made it clear at this time she has no interest in resuming Xeloda. She is worried that the Xeloda is causing a flareup in her POTS. She was having dizziness and an elevated heart rate. She states that her blood pressure is now getting better controlled off of Xeloda. She is having extreme pain to her rectum from the radiation. She denies any blood in her stools. Her stools are now thin in size which she states is from the inflammation from radiation. She has purchased Preparation H with lidocaine. She denies fevers, chills and signs/symptoms of infection. She has the sweats which she states is from starting menopause. Overall, she is doing fairly well today. Updated Visit, July 01, 2022: Cherie returns for follow up. Starting having POTS symptoms on . Was worse over the weekend. Had dizziness, heart racing, BP dropping. She did not pass out. Denies fevers, chills, nausea or vomiting. She describes her stool as fluctuating between constipation and diarrhea. She is having some rectal pain and burning. She did also have one mouth sore that is healing up. Her feet are now tender down to the ball of the foot. Hands are not bothering her. Updated Visit, June 24, 2022: Kirt Reyna returns for follow-up. She remains on Xeloda 1000 mg twice daily concurrent with radiation Friday through Friday. She has developed some mouth sores. Her tongue has been bothering her. She had intermittent diarrhea and also constipation. She is not taking anything for either the diarrhea or constipation. She noticed a lot of mucus in her stool which she actually felt might be part of the tumor. She denies blood in her stools. No hand-foot syndrome. She denies fevers, chills, night sweats and signs/symptoms of infection. Updated Visit, June 17, 2022: Doing well overall after reducing the dose of Xeloda to 1000 mg BID. Nausea a little better. Hands and feet are ok. Will continue IV hydration prophylactically. Updated Visit, May 27, 2022: Cherie is doing well and has no incontinence. We reviewed her imaging together and shared concerns of extent of involvement with sphincter pressing the need for adding chemotherapy. Xeloda will be daily on days of RT. Her biggest concern is regarding POTS. Mother Myrna is with her POTS closely associated with EDS and she has hypermobility. Also can be associated with platelet dysfunction but she has not demonstrated any bleeding tendencies. Consider Genetic counseling in future. Initial Visit, May 06, 2022: Kirt Reyna presents today Hematology and Oncology evaluation. She is a 52 year old female who has a history of significantly symptomatic POTS for which she is on Florinef, who has been diagnosed with Anal Ca presenting with intermittent rectal bleeding that became progressively more frequent. Her fiance Garrick Youssef was unable to accompany her but she has plenty of support at home She additionally reports: Molar in 1993, subsequent successful of her daughter in 1995 and son in 2003. She is not incontinent and pain is well managed. REVIEW OF SYSTEMS Per HPI and otherwise negative by full review of organ systems. ECOG PERFORMANCE STATUS: 0 PHYSICAL EXAMINATION: Vitals: BP 155/68 Pulse 84 Temp (Src) 97.2 (Temporal) Resp 16 Ht 5' 7.008 (1.70m) Wt 176 lb (79.8kg) SpO2 99% BMI 27.56 kg/(m^2). Body surface area is 1.94 meters squared. Exam limited to gross visualization where appropriate. Gen.: This is an age-appropriate patient in no acute distress. Head: Appears atraumatic with no visible lesions. Eyes: Pupils equally round and reactive to light, extraocular muscles are intact. Neck: Supple. Respiratory: Appears to be respiring comfortably. Neurologic: Nonfocal to gross visualization. Alert and oriented 3. Psychiatric: No evidence of inappropriate anxiety or depression. Skin: Visible areas of skin without rash, lesions, wounds or petechiae. ALLERGIES: ALLERGIES Allergen Reactions Penicillin G Unknown Sulfa (Sulfonamide * Unknown MEDICATIONS: CALCIUM ORAL Take by mouth once daily. cholecalciferol, vitamin D3, (VITAMIN D3 ORAL) Take by mouth once daily. multivit-min/ferrous fumarate (MULTI VITAMIN ORAL) Take by mouth once daily. ondansetron (ZOFRAN) 8 mg tablet TAKE 1 TABLET BY MOUTH EVERY 8 HOURS NEEDED FOR NAUSEA AND VOMITING Cblonfijh-Sybekycbcdhqbv-Ofyk 2.8-0.55 % gel Use 1 Applicator by RECTAL route twice daily as needed. multivitamin tablet Take 1 tablet by mouth once daily. acetaminophen/diphenhydramine (TYLENOL PM EXTRA STRENGTH ORAL) Take 500 mg by mouth as needed. fludrocortisone (FLORINEF) 0.1 mg tablet TAKE 0.5 TABLET BY MOUTH TWICE A DAY LABORATORY VALUES: WBC (k/uL) Date Value 04/28/2023 4.47 RBC (m/uL) Date Value 04/28/2023 4.32 Hemoglobin (g/dL) Date Value 04/28/2023 12.9 Hematocrit (%) Date Value 04/28/2023 38.2 MCV (fL) Date Value 04/28/2023 88.4 MCH (pg) Date Value 04/28/2023 29.9 MCHC (g/dL) Date Value 04/28/2023 33.8 RDW-CV (%) Date Value 04/28/2023 13.2 Platelet Count (k/uL) Date Value 04/28/2023 234 MPV (fL) Date Value 04/28/2023 9.5 Glucose (mg/dL) Date Value 04/28/2023 119 (H) BUN (mg/dL) Date Value 04/28/2023 19 Creatinine (mg/dL) Date Value 04/28/2023 0.71 Sodium (mmol/L) Date Value 04/28/2023 138 Potassium (mmol/L) Date Value 04/28/2023 3.6 (L) Chloride (mmol/L) Date Value 04/28/2023 101 CO2 (mmol/L) Date Value 04/28/2023 27 Protein, Total (g/dL) Date Value 04/28/2023 7.6 Albumin (g/dL) Date Value 04/28/2023 4.7 Calcium, Total (mg/dL) Date Value 04/28/2023 9.7 Alkaline Phosphatase (U/L) Date Value 04/28/2023 104 Bilirubin, Total (mg/dL) Date Value 04/28/2023 0.2 AST (U/L) Date Value 04/28/2023 23 ALT (U/L) Date Value 04/28/2023 20 DIAGNOSIS: (C21.0) Anal cancer (HCC) (primary encounter diagnosis) Plan: CBC + DIFF, COMP METABOLIC PANEL (G90.A) POTS (postural orthostatic tachycardia syndrome) Plan: CBC + DIFF, COMP METABOLIC PANEL PAST MEDICAL HISTORY Diagnosis Date Hiatal hernia POTS (postural orthostatic tachycardia syndrome) POTS (postural orthostatic tachycardia syndrome) 05/27/2022 Vertigo 1969 PAST SURGICAL HISTORY Procedure Laterality Date D&C, DIAG AND/OR THERAPEUTIC molar OVARIAN CYSTECTOMY UNI/BI Social History Tobacco Use Smoking status: Never Passive exposure: Never Smokeless tobacco: Never Vaping Use Vaping Use: Never used Substance Use Topics Alcohol use: No Drug use: No FAMILY HISTORY Problem Relation Age of Onset other (cysts [Other]) Mother other (parkinson [Other]) Father Diabetes Father I spent a total of 30 minutes on the date of the service which included preparing to see the patient, [id number] patient care, completing clinical documentation, performing a medically appropriate examination, counseling and educating the patient/family/caregiver, ordering medications, tests, or procedures, and independently interpreting results (not separately reported). Paco Bonds MD, CPE Hematology and Oncology Services Provided at: [place], [place] CC: Dr. Phil Liu documented in this encounter [facility] 04-28-2023 Nurse Note Patient had a Mammogram but do to dense tissue she has to have an US and more in depth mammogram done. Radha Lunsford MA documented in this encounter [facility] 02-27-[address] Michaud request, pt was notified of report showing osteopenia in L Hip. Report faxed to PCP, DR Liu. Pt will follow up with him for any reccomendations. Eliza Ceballos RN Pt called in requesting results of dexa scan. Dr Michaud- please advise. Results scanned in under xray. Unsure how to interpret for patient. Eliza Ceballos RN documented in this encounter [facility] 02-12-2023 Miscellaneous Notes Patient is scheduled at [place] Fridayfeb 17 she is aware of appts Called [facility] to schedule appt left message Pt was notified. PSS- please contact pt and arrange Dexa at [facility] per pt request. Eliza Ceballos RN Will go ahead and order the DXA scan and add a Vitamin D level to her next blood draw. Thanks! Toribio Pt called in requesting dexa scan ordered and lab work. She states that she has been having a lot of achiness in her bones. She reports this in her hips/low back/knees/top of feet & thumbs. She is wondering if this could be from being put in to menopause. She stated that she was told at one point that a dexa scan may need to be ordered to look at her bones. She is also wanting to get labs done to check her blood counts and to check for any vitamin deficiencies. She specifically wants to get a vitamin D Level checked. Dr Michaud- please advise. Would you like to order these tests or would you prefer for Dr Bonds to evaluate these questions? Eliza Ceballos RN documented in this encounter [facility] 02-10-2023 Instructions Eliza Ceballos RN - 02/10/2023 1:32 PM EDT BONE MINERAL DENSITY PATIENT INSTRUCTIONS === Bone mineral density testing measures the amount of calcium in certain parts of your bones. This information determines how strong your bones are. The test is used to detect osteoporosis, a disease in which the bone's mineral content and density are low, increasing a person's risk of fractures. The lumbar spine (lower back) and the hip are the skeletal sites usually examined. For the test, remember that: 1. You cannot take this test if you are . 2. Eat a normal diet on the day of the test. 3. Take your medications as you normally would. 4. DO NOT take calcium supplements (such as Tums) for 24 hours before the test. 5. On the day of the test, leave valuables (jewelry or credit cards) at home. 6. The test should be performed prior to oral, rectal or IV contrast studies, or at least 7 days after any of these studies. For the test, you may be asked to wear a hospital gown. You will lie on your back, on a padded table, in a comfortable position. Generally, you can resume your usual activities immediately. documented in this encounter [facility] 01-16-2023 History of Present illness Narrative COLORECTAL SURGERY January 16, 2023 Kirt Reyna 52 year old Chief Complaint: anal cancer surveillance History of Present Illness: Kirt Reyna is a 52 year old female presents today for anal cancer surveillance. Last seen 10/17/22 Radiation oncology - Dr. Michaud Medical oncology - Dr. Bonds She reports she is doing well. She is having some joint pains but otherwise feels well. No change in bowel function. No rectal bleeding PAST MEDICAL HISTORY Diagnosis Date Hiatal hernia POTS (postural orthostatic tachycardia syndrome) POTS (postural orthostatic tachycardia syndrome) 05/27/2022 Vertigo 1969 PAST SURGICAL HISTORY Procedure Laterality Date D&C, DIAG AND/OR THERAPEUTIC molar OVARIAN CYSTECTOMY UNI/BI Current Outpatient Medications Medication Sig Dispense Refill ondansetron (ZOFRAN) 8 mg tablet TAKE 1 TABLET BY MOUTH EVERY 8 HOURS NEEDED FOR NAUSEA AND VOMITING (Patient not taking: Reported on 10/28/2022) 90 tablet 1 Yswvhixjd-Taglpmsxqvsoha-Zfby 2.8-0.55 % gel Use 1 Applicator by RECTAL route twice daily as needed. (Patient not taking: Reported on 10/28/2022) 100 g 0 multivitamin tablet Take 1 tablet by mouth once daily. acetaminophen/diphenhydramine (TYLENOL PM EXTRA STRENGTH ORAL) Take 500 mg by mouth as needed. (Patient not taking: Reported on 10/28/2022) fludrocortisone (FLORINEF) 0.1 mg tablet TAKE 0.5 TABLET BY MOUTH TWICE A DAY No current facility-administered medications for this visit. ALLERGIES Allergen Reactions Penicillin G Unknown Sulfa (Sulfonamide * Unknown FAMILY HISTORY Problem Relation Age of Onset other (cysts [Other]) Mother other (parkinson [Other]) Father Diabetes Father Social History Tobacco Use Smoking status: Never Passive exposure: Never Smokeless tobacco: Never Vaping Use Vaping Use: Never used Substance Use Topics Alcohol use: No Drug use: No Physical Exam: BP 138/75 Pulse 78 Wt 78 kg (172 lb) BMI 26.93 kg/m General Appearance: Well appearing, alert, in no acute distress, well-hydrated, well nourished. Abdomen: no inguinal lymphadenopathy Anorectal: External exam reveals no lesions. Digital rectal exam reveals no gross blood or masses Bankruptcy Legal Assistant present: Yes, Jenn Anoscopy: The patient was placed in chest-knee position. After digital exam with a lubricated finger, the scope was easily inserted. Posterior scar noted. Otherwise normal mucosa was noted. Anoscopy completed. Assessment Assessment and Plan: Kirt Reyna is a 52 year old female with anal cancer status post chemoradiation with sustained complete anoscopic response. Her last imaging test also showed good response. She will return to see me in 4 months for another inguinal lymph node exam as well as a anoscopy. Dr. Michaud has ordered her next set of imaging tests and she will continue to follow with him as well Medical Decision Making: Data Reviewed: Tests & Documents Reviewed/ordered: Review of prior notes from Dr. Michaud Review of Pathology Review of Imaging: CT Abdomen, MRI Pelvis, CT Chest Review of Labs: CBC, BMP, LFT, Albumin I have independently interpreted: CT Abdomen, MRI Pelvis, CT Chest Risk of morbidity, mortality and/or complications of treatment plan: high Phil Dougherty MD Colorectal Surgery documented in this encounter [facility] 01-16-2023 Note HNO ID: [id number] Author: Phil Dougherty MD Service: ? Author Type: Physician Type: Progress Notes Filed: 01/16/2023 4:04 PM Note Text: COLORECTAL SURGERY January 16, 2023 Kirt Reyna 52 year old Chief Complaint: anal cancer surveillance History of Present Illness: Kirt Reyna is a 52 year old female presents today for anal cancer surveillance. Last seen 10/17/22 Radiation oncology - Dr. Michaud Medical oncology - Dr. Bonds She reports she is doing well. She is having some joint pains but otherwise feels well. No change in bowel function. No rectal bleeding PAST MEDICAL HISTORY Diagnosis Date Hiatal hernia POTS (postural orthostatic tachycardia syndrome) POTS (postural orthostatic tachycardia syndrome) 05/27/2022 Vertigo 1969 PAST SURGICAL HISTORY Procedure Laterality Date DANDC, DIAG AND/OR THERAPEUTIC molar OVARIAN CYSTECTOMY UNI/BI Current Outpatient Medications Medication Sig Dispense Refill ondansetron (ZOFRAN) 8 mg tablet TAKE 1 TABLET BY MOUTH EVERY 8 HOURS NEEDED FOR NAUSEA AND VOMITING (Patient not taking: Reported on 10/28/2022) 90 tablet 1 Moajiqzgy-Brfbwmtziuepcp-Oocl 2.8-0.55 % gel Use 1 Applicator by RECTAL route twice daily as needed. (Patient not taking: Reported on 10/28/2022) 100 g 0 multivitamin tablet Take 1 tablet by mouth once daily. acetaminophen/diphenhydramine (TYLENOL PM EXTRA STRENGTH ORAL) Take 500 mg by mouth as needed. (Patient not taking: Reported on 10/28/2022) fludrocortisone (FLORINEF) 0.1 mg tablet TAKE 0.5 TABLET BY MOUTH TWICE A DAY No current facility-administered medications for this visit. ALLERGIES Allergen Reactions Penicillin G Unknown Sulfa (Sulfonamide * Unknown FAMILY HISTORY Problem Relation Age of Onset other (cysts [Other]) Mother other (parkinson [Other]) Father Diabetes Father Social History Tobacco Use Smoking status: Never Passive exposure: Never Smokeless tobacco: Never Vaping Use Vaping Use: Never used Substance Use Topics Alcohol use: No Drug use: No Physical Exam: BP 138/75 Pulse 78 Wt 78 kg (172 lb) BMI 26.93 kg/m? General Appearance: Well appearing, alert, in no acute distress, well-hydrated, well nourished. Abdomen: no inguinal lymphadenopathy Anorectal: External exam reveals no lesions. Digital rectal exam reveals no gross blood or masses Bankruptcy Legal Assistant present: Yes, Jenn Anoscopy: The patient was placed in chest-knee position. After digital exam with a lubricated finger, the scope was easily inserted. Posterior scar noted. Otherwise normal mucosa was noted. Anoscopy completed. Assessment Assessment and Plan: Kirt Reyna is a 52 year old female with anal cancer status post chemoradiation with sustained complete anoscopic response. Her last imaging test also showed good response. She will return to see me in 4 months for another inguinal lymph node exam as well as a anoscopy. Dr. Michaud has ordered her next set of imaging tests and she will continue to follow with him as well Medical Decision Making: Data Reviewed: Tests AND Documents Reviewed/ordered: Review of prior notes from Dr. Michaud Review of Pathology Review of Imaging: CT Abdomen, MRI Pelvis, CT Chest Review of Labs: CBC, BMP, LFT, Albumin I have independently interpreted: CT Abdomen, MRI Pelvis, CT Chest Risk of morbidity, mortality and/or complications of treatment plan: high Phil Dougherty MD Colorectal Surgery [facility] 10-28-2022 History of Present illness Narrative Radiation Oncology - Follow Up Note PATIENT NAME: Kirt Reyna PATIENT DIAGNOSIS/PATIENT IDENTIFICATION: Ms. 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 She completed a course of definitive concurrent chemoradiation therapy on 07/25/2022 (5600 cGy delivered in 28 fractions with partial course of Xeloda) INTERVAL HISTORY/ROS: Ms. Reyna returns to clinic today for routine follow-up approximately three months after the completion of her radiation treatments and six weeks since her last visit on 09/04/2022. In the interim, she had posttreatment imaging with MRI of the rectum on 10/11/2022 which showed marked interval decrease in size of the anorectal tumor with only a small focus of residual viable tumor remaining and no pelvic lymphadenopathy. She also met with Dr. Dougherty on 10/17/2022 with digital rectal exam noting left posterior scar with no masses or gross blood. Anoscopy again identified the left posterior scar with otherwise normal mucosa. Today she reports doing well and denies any pelvic or perianal pain/discomfort or skin irritation/breakdown. She reports normal formed bowels which are soft and managed by diet. She notes no fecal incontinence and met with the pelvic floor therapist and is doing exercises at home. She reports no blood in her stool and no issues with hemorrhoids. She denies any vaginal bleeding/discharge and has been using a vaginal dilator or intercourse. She reports no urinary issues and no aggravation of her POTS and has decreased her medication to her standing dose. She continues to note hot flashes and reports no further menstrual cycles. She endorses improving energy as she continues to work with stable appetite hydration and weight. She did have COVID since her last visit but is now recovered. She is planning for a GLASS EMBOSSER exam in the next few weeks. She otherwise denies any recent fevers, chills, headaches, difficulty with speech/swallowing, shortness of breath, chest pain/palpitations, abdominal pain, nausea, vomiting, change in bowel/urinary habits, difficulty with gait/balance, recent falls, etc. The remainder of the review of systems was performed and was otherwise noncontributory. ALLERGIES ALLERGIES Allergen Reactions Penicillin G Unknown Sulfa (Sulfonamide * Unknown MEDICATIONS: Current Outpatient Medications: multivitamin tablet fludrocortisone (FLORINEF) 0.1 mg tablet ondansetron (ZOFRAN) 8 mg tablet Vvcllpjkg-Heyxxpsadfgknb-Pjvg 2.8-0.55 % gel acetaminophen/diphenhydramine (TYLENOL PM EXTRA STRENGTH ORAL) PHYSICAL EXAM: GENERAL: Middle-aged woman sitting in chair in no acute distress. VITALS: BP 139/76 Pulse 90 Temp 97.5 Resp 16 Wt 175 lb (79.4kg) KPS: 90 HEENT: NC/AT, anicteric sclera HEART: S1S2 LUNGS: non-labored breathing ABDOMEN: soft MUSCULOSKELETAL: no peripheral edema, moves all extremities. NEURO: no focal deficit; A&O X3. DIAGNOSTIC DATA: 10/17/2022 - Dr. Dougherty Anorectal: External exam reveals no lesions. Digital rectal exam reveals no gross blood or masses, left posterior scar appreciated Anoscopy: The patient was placed in chest-knee position. After digital exam with a lubricated finger, the scope was easily inserted. Left posterior scar noted. Otherwise normal mucosa was noted. Anoscopy completed. RADIOLOGIC DATA: MRI Rectum (10/11/2022) IMPRESSION: MARKED INTERVAL DECREASE IN SIZE OF ANORECTAL TUMOR, WITH A SMALL FOCUS OF RESIDUAL VIABLE TUMOR REMAINING. NO PELVIC LYMPHADENOPATHY. RESULT: TREATED PRIMARY TUMOR CHARACTERISTICS (Compare to pre-treatment): DWI (with associated low ADC) ? restricted diffusion and low ADC in tumor or tumor bed: Present, improved from prior. Single tiny focus of restricted diffusion remains (10:13 and 9:13). MRI-T2W: Mixed dark T2/scar and intermediate signal. T2 bright mucin (cannot distinguish between cellular and acellular mucin): Absent. Description: Predominantly T2 dark scar, with a small focus of T2 intermediate signal in the right posterolateral anal canal (7:15), suggestive of residual viable tumor. Distance of the inferior margin of treated tumor to the anal verge: 2.6 cm (2:22) Distance of the inferior margin to the top of sphincter complex/anorectal junction: 0 cm (2:22) Relationship to anterior peritoneal reflection: Below Craniocaudal length: 3.5 cm (2:22) Pre-treatment craniocaudal length: 5.2 cm Tumor location: Anal/Low rectum (0-5 cm) Maximal wall thickness: 0.9 cm (6:22) Pre-treatment wall thickness: 2.1 cm Invasion of anal sphincter complex: Invades IAS + ISS + extends into or through external sphincter. Anal canal involvement: Upper and mid anal canal. TUMOR DEPOSITS AND EXTRAMURAL VASCULAR INVASION (EMVI): Tumor deposits:(separate from metastatic lymph nodes): No. EMVI: No (none evident pre-treatment). MESORECTAL FASCIA (MRF): Shortest distance of extraluminal part of the tumor to MRF: Residual viable tumor does not extend into the mesorectal fat. Tumor extension through the peritonealized portion of the rectum into peritoneal fat: No extension into peritoneal fat. Is there a separate tumor deposit, LN or EMVI threatening (?1mm and ?2 mm) or invading (< 1 mm) the MRF? No. Comments: Not applicable. T4 disease interval change: Not applicable. POST-TREATMENT TUMOR REGRESSION: mrTRG: Not applicable (squamous cell carcinoma). LYMPH NODES: Mesorectal/superior rectal lymph nodes and/or tumor deposits: N0 (no visible lymph nodes/deposits or only < 5 mm short axis) Suspicious extra mesorectal lymph nodes: None. OTHER FINDINGS: None. ASSESSMENT AND PLAN: Ms. Reyna is a 52-year-old woman with [id number] squamous cell carcinoma of the anal canal. She completed a course of definitive concurrent chemoradiation therapy on 07/25/2022 (5600 cGy delivered in 28 fractions with partial course of Xeloda). Ms. Reyna is doing well clinically approximately 3 months out from the completion of her chemoradiation treatments with resolution of the acute toxicities of therapy. Recent MRI of the rectum on 10/11/2022 showed marked interval decrease in size of the anorectal tumor with only a small focus of residual viable tumor remaining and no pelvic lymphadenopathy. Digital rectal exam and anoscopy by Dr. Dougherty on 10/17/2022 noted left posterior scar with otherwise normal mucosa and no masses appreciated. She will continue her follow-up/surveillance as scheduled with Dr. Dougherty and Dr. Bonds and I will plan to see her back in approximately [address] chest and repeat MRI of the rectum. The patient is aware to contact the clinic in the interim should any questions or concerns arise. Thank you for allowing us to participate in the care of this patient. Signed by: Toribio Michaud MD I spent a total of 20 minutes on the date of the service which included preparing to see the patient, [id number] patient care, and counseling and educating the patient/family/caregiver. This document has been created with the use of voice recognition technology. It may contain inaccuracies, misspellings, inaccurate syntax or inappropriate word context that are a result of the inadequacies/shortcomings of said technology/software. documented in this encounter [facility] 10-28-2022 Nurse Note Clinical questionnaires incomplete due to QNR intake not loading. Radha Lunsford MA documented in this encounter [facility] 10-28-2022 Instructions Paco Bonds MD - 10/28/2022 2:08 PM EDT RTC in 6 months Defer scans (MRI) to Dr. Michaud / [facility]. Labs on return - cbc, cmp documented in this encounter [facility] 10-28-2022 History of Present illness Narrative Images from the original note were not included. NAME: Kirt Reyna [facility] NO.: [id number] [facility]: [facility] Some elements in this clinic note that are critical to medical decision making have been carefully reviewed and included from a prior clinic note dated: September 04, 2022 ([facility]) Referring Provider: Dr. Phil Dougherty Additional Clinicians involved in Kirt Reyna's care: Dr. Sondra Liu, Dr. Vitaly Vaughn, Dr. 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 Chemo RT started 06/13/2022. Stopped Xeloda pills on 07/01/2022 due to developing POTS symptoms. Good response ~ 1 month following RT. Continued response 3 months after treatment conclusion with abbreviated Xeloda. PLAN: RTC in 6 months Defer scans (MRI) to Dr. Michaud / [facility]. Labs on return - cbc, cmp HPI: CASE HISTORY: 10/11/2022 - MRI Rectum - MARKED INTERVAL DECREASE IN SIZE OF ANORECTAL TUMOR, WITH A SMALL FOCUS OF RESIDUAL VIABLE TUMOR REMAINING 08/28/2022 - CT CAP - Subcentimeter right-sided lung nodules, unchanged. 1.4 cm right rectal mass, decreased in conspicuity. 07/01/2022 - CT CAP - Chest sub-cm nodule, Abd/Pelvis - 1.4 cm rectal mass decreased (5.2 cm prior MRI) 06/24/2022 - Xeloda dose reduced to 1000 mg BID M-F d/t intolerance 06/13/2022 - Started chemo/radiation with xeloda 1500 mg BID M-F 05/21/2022 - MRI Rectum: Anorectal tumor invading sphincter and with extension through right lower rectal wall into the mesorectal fat - broad based abutment of iliococcygeus muscle. MR - T3 N0 05/21/2022 - CT CAP: 1.8 cm sclerotic focus in prox right humerus - likely benign, 0.4 cm non-calcified pulmonary nodules, otherwise negative for metastatic disease. 04/24/2022 - Sigmoidoscopy, Dr. Vaughn: Rectal exam revealed a larger rectal mass in the right posterior lateral area, taking up approximately a third of the circumference, measured approximately 3.5 cm. 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 Oncoprotein p16 diffusely (+) 02/20/2022 - Rectal mass identified - delay in subsequent workup due to patient's concern with debilitating POTS. 2019 - POTS diagnosed just as COVID-19 hit. Updated Visit, October 28, 2022: Cherie returns and is doing well. Excellent progress on imaging as well as on exam per Dr. Dougherty. Labs stable. Updated Visit, September 04, 2022: Cherie returns to review scans - she is doing very well and very happy with results. Labs are stable. Reviewed images with her. Updated Visit, July 17, 2022: Anorectal region is sore especially after she passes a stool. Finishes scans next week Will restage in 6 weeks Updated Visit, July 10, 2022: Kirt Reyna returns for follow-up. She remains on radiation Friday through Friday. Due to the holidays and whether there has been some delay in treatment. She has 8 more radiation treatments. The Xeloda has been on hold since 07/01/2022. She has made it clear at this time she has no interest in resuming Xeloda. She is worried that the Xeloda is causing a flareup in her POTS. She was having dizziness and an elevated heart rate. She states that her blood pressure is now getting better controlled off of Xeloda. She is having extreme pain to her rectum from the radiation. She denies any blood in her stools. Her stools are now thin in size which she states is from the inflammation from radiation. She has purchased Preparation H with lidocaine. She denies fevers, chills and signs/symptoms of infection. She has the sweats which she states is from starting menopause. Overall, she is doing fairly well today. Updated Visit, July 01, 2022: Cherie returns for follow up. Starting having POTS symptoms on . Was worse over the weekend. Had dizziness, heart racing, BP dropping. She did not pass out. Denies fevers, chills, nausea or vomiting. She describes her stool as fluctuating between constipation and diarrhea. She is having some rectal pain and burning. She did also have one mouth sore that is healing up. Her feet are now tender down to the ball of the foot. Hands are not bothering her. Updated Visit, June 24, 2022: Kirt Reyna returns for follow-up. She remains on Xeloda 1000 mg twice daily concurrent with radiation Friday through Friday. She has developed some mouth sores. Her tongue has been bothering her. She had intermittent diarrhea and also constipation. She is not taking anything for either the diarrhea or constipation. She noticed a lot of mucus in her stool which she actually felt might be part of the tumor. She denies blood in her stools. No hand-foot syndrome. She denies fevers, chills, night sweats and signs/symptoms of infection. Updated Visit, June 17, 2022: Doing well overall after reducing the dose of Xeloda to 1000 mg BID. Nausea a little better. Hands and feet are ok. Will continue IV hydration prophylactically. Updated Visit, May 27, 2022: Cherie is doing well and has no incontinence. We reviewed her imaging together and shared concerns of extent of involvement with sphincter pressing the need for adding chemotherapy. Xeloda will be daily on days of RT. Her biggest concern is regarding POTS. Mother Myrna is with her POTS closely associated with EDS and she has hypermobility. Also can be associated with platelet dysfunction but she has not demonstrated any bleeding tendencies. Consider Genetic counseling in future. Initial Visit, May 06, 2022: Kitr Reyna presents today Hematology and Oncology evaluation. She is a 52 year old female who has a history of significantly symptomatic POTS for which she is on Florinef, who has been diagnosed with Anal Ca presenting with intermittent rectal bleeding that became progressively more frequent. Her fiance Garrick Youssef was unable to accompany her but she has plenty of support at home She additionally reports: Molar in 1993, subsequent successful of her daughter in 1995 and son in 2003. She is not incontinent and pain is well managed. REVIEW OF SYSTEMS Per HPI and otherwise negative by full review of organ systems. ECOG PERFORMANCE STATUS: 0 PHYSICAL EXAMINATION: Vitals: BP 139/76[recheck[ Pulse 90 Temp (Src) 97.5 (Temporal) Resp 16 Ht 5' 7.008 (1.70m) Wt 175 lb 9.6 oz (79.7kg) SpO2 100% BMI 27.50 kg/(m^2). Body surface area is 1.94 meters squared. PHYSICAL EXAMINATION Exam limited to gross visualization where appropriate due to COVID-19. Gen.: This is an age-appropriate patient in no acute distress. Head: Appears atraumatic with no visible lesions. Eyes: Pupils equally round and reactive to light, extraocular muscles are intact. Neck: Supple. Mouth: Masked. Respiratory: Appears to be respiring comfortably. Neurologic: Nonfocal to gross visualization. Alert and oriented 3. Psychiatric: No evidence of inappropriate anxiety or depression. Skin: Visible areas of skin without rash, lesions, wounds or petechiae. ALLERGIES: ALLERGIES Allergen Reactions Penicillin G Unknown Sulfa (Sulfonamide * Unknown MEDICATIONS: ondansetron (ZOFRAN) 8 mg tablet TAKE 1 TABLET BY MOUTH EVERY 8 HOURS NEEDED FOR NAUSEA AND VOMITING (Patient not taking: Reported on 10/28/2022) Qtjqvfqhm-Swsmbtqipsouyu-Xqev 2.8-0.55 % gel Use 1 Applicator by RECTAL route twice daily as needed. (Patient not taking: Reported on 10/28/2022) multivitamin tablet Take 1 tablet by mouth once daily. acetaminophen/diphenhydramine (TYLENOL PM EXTRA STRENGTH ORAL) Take 500 mg by mouth as needed. (Patient not taking: Reported on 10/28/2022) fludrocortisone (FLORINEF) 0.1 mg tablet TAKE 0.5 TABLET BY MOUTH TWICE A DAY diphenhydrAMINE (BENADRYL) 12.5 mg/5 mL liquid oxyCODONE-acetaminophen (PERCOCET) 5-325 mg tablet Take one tablet every six hours as needed for pain. May alternate with NSAIDs (Motrin, Alleve, etc). Take necessary precautions to avoid constipation. (Patient taking differently: Take one tablet every six hours as needed for pain. May alternate with NSAIDs (Motrin, Alleve, etc). Take necessary precautions to avoid constipation.) lidocaine (XYLOCAINE) 2 % jelly Apply 1-2 times a day to affected area as needed for pain/discomfort. Test in small unaffected area first for reaction. (Patient taking differently: Apply 1-2 times a day to affected area as needed for pain/discomfort. Test in small unaffected area first for reaction.) diphenhydrAMINE 12.5 mg/5 mL lidocaine visc 2% MAALOX 200-200-20 mg/5 mL nystatin prednisoLONE 15 mg/5 mL oral liquid 1:1:1:1:1 (CPD) Swish and swallow 5 mL by mouth every 6 hours as needed. capecitabine (XELODA) 500 mg tablet Take 2 tablet by mouth , with food, twice daily only on days of radiation (M-F) each week prochlorperazine (COMPAZINE) 10 mg tablet Take 1 tablet by mouth every 6 hours as needed. LABORATORY VALUES: WBC (k/uL) Date Value 10/28/2022 4.46 RBC (m/uL) Date Value 10/28/2022 4.28 Hemoglobin (g/dL) Date Value 10/28/2022 12.9 Hematocrit (%) Date Value 10/28/2022 38.9 MCV (fL) Date Value 10/28/2022 90.9 MCH (pg) Date Value 10/28/2022 30.1 MCHC (g/dL) Date Value 10/28/2022 33.2 RDW-CV (%) Date Value 10/28/2022 13.1 Platelet Count (k/uL) Date Value 10/28/2022 235 MPV (fL) Date Value 10/28/2022 9.8 Glucose (mg/dL) Date Value 10/28/2022 124 (H) BUN (mg/dL) Date Value 10/28/2022 21 Creatinine (mg/dL) Date Value 10/28/2022 0.68 Sodium (mmol/L) Date Value 10/28/2022 140 Potassium (mmol/L) Date Value 10/28/2022 3.5 (L) Chloride (mmol/L) Date Value 10/28/2022 101 CO2 (mmol/L) Date Value 10/28/2022 27 Protein, Total (g/dL) Date Value 10/28/2022 7.5 Albumin (g/dL) Date Value 10/28/2022 4.5 Calcium, Total (mg/dL) Date Value 10/28/2022 9.8 Alkaline Phosphatase (U/L) Date Value 10/28/2022 89 Bilirubin, Total (mg/dL) Date Value 10/28/2022 <0.2 (L) AST (U/L) Date Value 10/28/2022 20 ALT (U/L) Date Value 10/28/2022 18 DIAGNOSIS: (C21.0) Anal cancer (HCC) (primary encounter diagnosis) Plan: CBC + DIFF, COMP METABOLIC PANEL (G90.A) POTS (postural orthostatic tachycardia syndrome) Plan: CBC + DIFF, COMP METABOLIC PANEL PAST MEDICAL HISTORY Diagnosis Date Hiatal hernia POTS (postural orthostatic tachycardia syndrome) POTS (postural orthostatic tachycardia syndrome) 05/27/2022 Vertigo 1969 PAST SURGICAL HISTORY Procedure Laterality Date D&C, DIAG AND/OR THERAPEUTIC molar OVARIAN CYSTECTOMY UNI/BI Social History Tobacco Use Smoking status: Never Passive exposure: Never Smokeless tobacco: Never Vaping Use Vaping Use: Never used Substance Use Topics Alcohol use: No Drug use: No FAMILY HISTORY Problem Relation Age of Onset other (cysts [Other]) Mother other (parkinson [Other]) Father Diabetes Father I spent a total of 30 minutes on the date of the service which included preparing to see the patient, [id number] patient care, completing clinical documentation, performing a medically appropriate examination, counseling and educating the patient/family/caregiver, ordering medications, tests, or procedures, and independently interpreting results (not separately reported). Paco Bonds MD, CPE Hematology and Oncology Services Provided at: [place], [place] CC: Dr. Phil Liu documented in this encounter [facility] 10-11-2022 Note HNO ID: [id number] Author: Eleonora Puri Service: Radiology Author Type: Technologist Type: Progress Notes Filed: 10/11/2022 4:32 PM Note Text: Radiology Service Progress Note PATIENT NAME: Kirt Reyna DATE OF SERVICE: October 11, 2022 TIME: 4:15 PM PATIENT IDENTITY VERIFICATION COMPLETED USING TWO (2) IDENTIFIERS: Name and Date of confirmed by patient verbally and Name and Date of confirmed by identification band. FALL SCREENING: Has the patient had 2 falls in the last year or 1 fall with injury or currently using an Ambulatory Assistive Device (Walker, Cane, Wheelchair, Crutches, etc.)? No PATIENT GENDER DATA: Female. status: : No status: NO. PATIENT RELEVANT IMPLANT DATA REVIEWED: Yes RADIOLOGY DEPARTMENT: MR; Exam(s) Completed: Body: Rectal PERIPHERAL IV DATA: Site assessment: Clean,Dry and Intact, Site disposition Discontinued SIGNED BY: Eleonora Puri October 11, 2022 4:[address] [facility] 10-11-2022 History of Present illness Narrative Radiology Service Progress Note PATIENT NAME: Kirt Reyna DATE OF SERVICE: October 11, 2022 TIME: 4:15 PM PATIENT IDENTITY VERIFICATION COMPLETED USING TWO (2) IDENTIFIERS: Name and Date of confirmed by patient verbally and Name and Date of confirmed by identification band. FALL SCREENING: Has the patient had 2 falls in the last year or 1 fall with injury or currently using an Ambulatory Assistive Device (Walker, Cane, Wheelchair, Crutches, etc.)? No PATIENT GENDER DATA: Female. status: : No status: NO. PATIENT RELEVANT IMPLANT DATA REVIEWED: Yes RADIOLOGY DEPARTMENT: MR; Exam(s) Completed: Body: Rectal PERIPHERAL IV DATA: Site assessment: Clean,Dry and Intact, Site disposition Discontinued SIGNED BY: Eleonora Puri October 11, 2022 4:15 PM documented in this encounter [facility] 10-11-2022 Nurse Note Radiology Service Progress Note DATE OF SERVICE: October 11, 2022 TIME: 2:45 PM PATIENT WEIGHT: 173 LBS PATIENT IDENTITY VERIFICATION COMPLETED USING TWO (2) STANDARD IDENTIFIERS: Name and Date of confirmed by patient verbally and Name and Date of confirmed by identification band. FALL SCREENING: Has the patient had 2 falls in the last year or 1 fall with injury or currently using an Ambulatory Assistive Device (Walker, Cane, Wheelchair, Crutches, etc.)? No PATIENT GENDER DATA: Female. status: : No status: NO. ALLERGIES: Reviewed and unchanged CONTRAST ALLERGY: No EXAM: MRI - CONTRAST TYPE: GROUP II IV SITE: Ambulatory: A peripheral IV was started in the Right antecubital site with a Angio cath: 22 gauge.diffusic IV SITE APPEARANCE: Clean,Dry and Intact SIGNATURE: Melissa Vazquez RN PATIENT NAME: Kirt Reyna DATE: October 11, 2022 TIME: 2:45 PM documented in this encounter [facility] 09-04-2022 History of Present illness Narrative Radiation Oncology - Follow Up Note PATIENT NAME: Kirt Reyna PATIENT Signed by: Toribio Michaud MD This document has been created with the use of voice recognition technology. It may contain inaccuracies, misspellings, inaccurate syntax or inappropriate word context that are a result of the inadequacies/shortcomings of said technology/software. documented in this encounter [facility] 09-04-2022 Instructions Paco Bonds MD - 09/04/2022 10:52 AM EST RTC in 3 months Defer scans (MRI) to Dr. Michaud. Labs on return - cbc, cmp documented in this encounter [facility] 09-04-2022 History of Present illness Narrative Images from the original note were not included. NAME: Kirt Reyna NO.: [id number] DATE OF SERVICE: September 04, 2022 (Vamshi) Some elements in this clinic note that are critical to medical decision making have been carefully reviewed and included from a prior clinic note dated: July 17, 2022 (Vamshi) Referring Provider: Dr. Phil Dougherty Additional Clinicians involved in Kirt Reyna's care: Dr. Sondra Liu, Dr. Vitaly Vaughn, Dr. 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 Chemo RT started 06/24/22. Stopped Xeloda pills on 07/01/2022 due to developing POTS symptoms. Good response ~ 1 month following RT. PLAN: RTC in 3 months Defer scans (MRI) to Dr. Michaud. Labs on return - cbc, cmp HPI: CASE HISTORY: 07/01/2022 - CT CAP - Chest sub-cm nodule, Abd/Pelvis - 1.4 cm rectal mass decreased (5.2 cm prior MRI) 06/14/2022 - Xeloda dose reduced to 1000 mg BID M-F d/t intolerance 06/13/2022 - Started chemo/radiation with xeloda 1500 mg BID M-F 05/21/2022 - MRI Rectum: Anorectal tumor invading sphincter and with extension through right lower rectal wall into the mesorectal fat - broad based abutment of iliococcygeus muscle. MR - T3 N0 05/21/2022 - CT CAP: 1.8 cm sclerotic focus in prox right humerus - likely benign, 0.4 cm non-calcified pulmonary nodules, otherwise negative for metastatic disease. 04/24/2022 - Sigmoidoscopy, Dr. Vaughn: Rectal exam revealed a larger rectal mass in the right posterior lateral area, taking up approximately a third of the circumference, measured approximately 3.5 cm. 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 Oncoprotein p16 diffusely (+) 02/20/2022 - Rectal mass identified - delay in subsequent workup due to patient's concern with debilitating POTS. 2019 - POTS diagnosed just as COVID-19 hit. Updated Visit, September 04, 2022: Cherie returns to review scans - she is doing very well and very happy with results. Labs are stable. Reviewed images with her. Updated Visit, July 17, 2022: Anorectal region is sore especially after she passes a stool. Finishes scans next week Will restage in 6 weeks Updated Visit, July 10, 2022: Kirt Reyna returns for follow-up. She remains on radiation Friday through Friday. Due to the holidays and whether there has been some delay in treatment. She has 8 more radiation treatments. The Xeloda has been on hold since 07/01/2022. She has made it clear at this time she has no interest in resuming Xeloda. She is worried that the Xeloda is causing a flareup in her POTS. She was having dizziness and an elevated heart rate. She states that her blood pressure is now getting better controlled off of Xeloda. She is having extreme pain to her rectum from the radiation. She denies any blood in her stools. Her stools are now thin in size which she states is from the inflammation from radiation. She has purchased Preparation H with lidocaine. She denies fevers, chills and signs/symptoms of infection. She has the sweats which she states is from starting menopause. Overall, she is doing fairly well today. Updated Visit, July 01, 2022: Cherie returns for follow up. Starting having POTS symptoms on . Was worse over the weekend. Had dizziness, heart racing, BP dropping. She did not pass out. Denies fevers, chills, nausea or vomiting. She describes her stool as fluctuating between constipation and diarrhea. She is having some rectal pain and burning. She did also have one mouth sore that is healing up. Her feet are now tender down to the ball of the foot. Hands are not bothering her. Updated Visit, June 24, 2022: Kirt Reyna returns for follow-up. She remains on Xeloda 1000 mg twice daily concurrent with radiation Friday through Friday. She has developed some mouth sores. Her tongue has been bothering her. She had intermittent diarrhea and also constipation. She is not taking anything for either the diarrhea or constipation. She noticed a lot of mucus in her stool which she actually felt might be part of the tumor. She denies blood in her stools. No hand-foot syndrome. She denies fevers, chills, night sweats and signs/symptoms of infection. Updated Visit, June 17, 2022: Doing well overall after reducing the dose of Xeloda to 1000 mg BID. Nausea a little better. Hands and feet are ok. Will continue IV hydration prophylactically. Updated Visit, May 27, 2022: Cherie is doing well and has no incontinence. We reviewed her imaging together and shared concerns of extent of involvement with sphincter pressing the need for adding chemotherapy. Xeloda will be daily on days of RT. Her biggest concern is regarding POTS. Mother Myrna is with her POTS closely associated with EDS and she has hypermobility. Also can be associated with platelet dysfunction but she has not demonstrated any bleeding tendencies. Consider Genetic counseling in future. Initial Visit, May 06, 2022: Kirt Reyna presents today Hematology and Oncology evaluation. She is a 52 year old female who has a history of significantly symptomatic POTS for which she is on Florinef, who has been diagnosed with Anal Ca presenting with intermittent rectal bleeding that became progressively more frequent. Her fiance Garrick Youssef was unable to accompany her but she has plenty of support at home She additionally reports: Molar in 1993, subsequent successful of her daughter in 1995 and son in 2003. She is not incontinent and pain is well managed. REVIEW OF SYSTEMS Per HPI and otherwise negative by full review of organ systems. ECOG PERFORMANCE STATUS: 0 PHYSICAL EXAMINATION: Vitals: BP 142/67 Pulse 97 Temp (Src) 98.9 (Temporal) Resp 16 Ht 5' 7.008 (1.70m) Wt 173 lb 3.2 oz (78.6kg) SpO2 98% BMI 27.12 kg/(m^2). Body surface area is 1.93 meters squared. PHYSICAL EXAMINATION Exam limited to gross visualization where appropriate due to COVID-19. Gen.: This is an age-appropriate patient in no acute distress. Head: Appears atraumatic with no visible lesions. Eyes: Pupils equally round and reactive to light, extraocular muscles are intact. Neck: Supple. Mouth: Masked. Respiratory: Appears to be respiring comfortably. Neurologic: Nonfocal to gross visualization. Alert and oriented 3. Psychiatric: No evidence of inappropriate anxiety or depression. Skin: Visible areas of skin without rash, lesions, wounds or petechiae. ALLERGIES: ALLERGIES Allergen Reactions Penicillin G Unknown Sulfa (Sulfonamide * Unknown MEDICATIONS: ondansetron (ZOFRAN) 8 mg tablet TAKE 1 TABLET BY MOUTH EVERY 8 HOURS NEEDED FOR NAUSEA AND VOMITING multivitamin tablet Take 1 tablet by mouth once daily. acetaminophen/diphenhydramine (TYLENOL PM EXTRA STRENGTH ORAL) Take 500 mg by mouth as needed. fludrocortisone (FLORINEF) 0.1 mg tablet TAKE 0.5 TABLET BY MOUTH TWICE A DAY diphenhydrAMINE (BENADRYL) 12.5 mg/5 mL liquid Ntlqhgwfr-Mdwhnczxkadsii-Sgrv 2.8-0.55 % gel Use 1 Applicator by RECTAL route twice daily as needed. oxyCODONE-acetaminophen (PERCOCET) 5-325 mg tablet Take one tablet every six hours as needed for pain. May alternate with NSAIDs (Motrin, Alleve, etc). Take necessary precautions to avoid constipation. (Patient taking differently: Take one tablet every six hours as needed for pain. May alternate with NSAIDs (Motrin, Alleve, etc). Take necessary precautions to avoid constipation.) lidocaine (XYLOCAINE) 2 % jelly Apply 1-2 times a day to affected area as needed for pain/discomfort. Test in small unaffected area first for reaction. (Patient taking differently: Apply 1-2 times a day to affected area as needed for pain/discomfort. Test in small unaffected area first for reaction.) diphenhydrAMINE 12.5 mg/5 mL lidocaine visc 2% MAALOX 200-200-20 mg/5 mL nystatin prednisoLONE 15 mg/5 mL oral liquid 1:1:1:1:1 (CPD) Swish and swallow 5 mL by mouth every 6 hours as needed. capecitabine (XELODA) 500 mg tablet Take 2 tablet by mouth , with food, twice daily only on days of radiation (M-F) each week (Patient not taking: No sig reported) prochlorperazine (COMPAZINE) 10 mg tablet Take 1 tablet by mouth every 6 hours as needed. LABORATORY VALUES: WBC (k/uL) Date Value 08/28/2022 5.02 RBC (m/uL) Date Value 08/28/2022 4.26 Hemoglobin (g/dL) Date Value 08/28/2022 12.9 Hematocrit (%) Date Value 08/28/2022 38.2 MCV (fL) Date Value 08/28/2022 89.7 MCH (pg) Date Value 08/28/2022 30.3 MCHC (g/dL) Date Value 08/28/2022 33.8 RDW-CV (%) Date Value 08/28/2022 13.7 Platelet Count (k/uL) Date Value 08/28/2022 222 MPV (fL) Date Value 08/28/2022 9.9 Glucose (mg/dL) Date Value 08/28/2022 113 (H) BUN (mg/dL) Date Value 08/28/2022 16 Creatinine (mg/dL) Date Value 08/28/2022 0.69 Sodium (mmol/L) Date Value 08/28/2022 140 Potassium (mmol/L) Date Value 08/28/2022 4.0 Chloride (mmol/L) Date Value 08/28/2022 102 CO2 (mmol/L) Date Value 08/28/2022 26 Protein, Total (g/dL) Date Value 08/28/2022 7.6 Albumin (g/dL) Date Value 08/28/2022 4.6 Calcium, Total (mg/dL) Date Value 08/28/2022 9.9 Alkaline Phosphatase (U/L) Date Value 08/28/2022 90 Bilirubin, Total (mg/dL) Date Value 08/28/2022 0.4 AST (U/L) Date Value 08/28/2022 25 ALT (U/L) Date Value 08/28/2022 20 DIAGNOSIS: (C21.0) Anal cancer (HCC) (primary encounter diagnosis) Plan: CBC + DIFF, COMP METABOLIC PANEL (G90.A) POTS (postural orthostatic tachycardia syndrome) Plan: CBC + DIFF, COMP METABOLIC PANEL PAST MEDICAL HISTORY Diagnosis Date Hiatal hernia POTS (postural orthostatic tachycardia syndrome) POTS (postural orthostatic tachycardia syndrome) 05/27/2022 Vertigo 1969 PAST SURGICAL HISTORY Procedure Laterality Date D&C, DIAG AND/OR THERAPEUTIC molar OVARIAN CYSTECTOMY UNI/BI Social History Tobacco Use Smoking status: Never Passive exposure: Never Smokeless tobacco: Never Vaping Use Vaping Use: Never used Substance Use Topics Alcohol use: No Drug use: No FAMILY HISTORY Problem Relation Age of Onset other (cysts [Other]) Mother other (parkinson [Other]) Father Diabetes Father I spent a total of 30 minutes on the date of the service which included preparing to see the patient, [id number] patient care, completing clinical documentation, performing a medically appropriate examination, counseling and educating the patient/family/caregiver, ordering medications, tests, or procedures, and independently interpreting results (not separately reported). Paco Bonds MD, CPE Hematology and Oncology Services Provided at: [place], [place] CC: Dr. Phil Liu documented in this encounter [facility] 08-16-2022 Miscellaneous Notes Voicemail message received from pt requesting a letter clearing her to return to work. Pt's chart reviewed. It appears a letter was written per Dr Michaud on 07/24/22. Call placed to pt. Pt states that her employer found the letter since her original message. No additional letter needed at this time. Leandra Whitehead RN documented in this encounter [facility] 08-01-2022 History of Present illness Narrative Radiation Oncology - Follow Up Note PATIENT NAME: Kirt Reyna PATIENT Signed by: Toribio Michaud MD This document has been created with the use of voice recognition technology. It may contain inaccuracies, misspellings, inaccurate syntax or inappropriate word context that are a result of the inadequacies/shortcomings of said technology/software. documented in this encounter [facility] 08-01-2022 Nurse Note Kirt Reyna presents in office today for: Lab Draw during Office Visit . Ordering Provider: Toribio Michaud M.D. Test (s) ordered: CBC CMP Method for obtaining blood: Phlebotomy was performed, accessing right antecubital vein. Needle removed intact. Dressing secured. Patient denies discomfort, dizziness, light-headedness or weakness and left the department without assist. Eliza Ceballos RN documented in this encounter [facility] 07-26-2022 Miscellaneous Notes ART THERAPY NOTE SERVICE DATE: 07/26/2022 SERVICE TIME: 1:00 Referred By: self Reason for Referral: patient request Session Type: Follow Up Time Spent (minutes): 120 Goals: Coping Through Diversion Interventions: Art Based Therapy Response Before After Mood 2/4 0/4 Anxiety 2/10 0/10 Pain 5 3/10 Scale: 0 = No pain/anxiety 10 = Worst possible pain/anxiety Response: Media Used: Rosas Patient's Verbal Response: Positive Family Present: Yes Family Member: mother in law Family Verbal Response: Positive Outcome: Goals: Met Follow Up: Will Follow Up as Able COMMENTS: Patient shared that she is celebrating her last treatment today. Patient chose to create a design on a mug to celebrate today. Patient stated that the art therapy has been instrumental in her healing and that she plans to continue art making at home. Patient was invited to schedule art therapy at her request in the future. SIGNATURE: Bear Chun PATIENT NAME: Kirt Reyna DATE: July 26, 2022 TIME: 2:46 PM PAGER/CONTACT #: documented in this encounter [facility] 07-25-2022 History of Present illness Narrative [facility] Radiation Oncology Department RADIATION ONCOLOGY - COMPLETION NOTE PATIENT: KIRT REYNA: 1970 DATES OF TREATMENT: 06-13-2022 to 07-25-2022 DIAGNOSIS: Ms. 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 AREA TREATED: Anal Canal/Pelvis DELIVERED DOSE: Area: Anal Canal/Pelvis 5000/4500 cGy in 25 fractions (SIB), 3 VMAT Rapid Arcs, X10 with daily CBCT DELIVERED DOSE: Area: Anal Canal Boost 600 cGy in 3 fractions, 2 VMAT Rapid Arcs, X10 with daily CBCT TOTAL: 5600/4500 cGy (SIB)in 28 fractions with concurrent Xeloda ELAPSED TIME: 42 days. CLINICAL SUMMARY: The patient tolerated course of radiation therapy with treatment related fatigue, dermatitis/moist desquamation, proctitis/greyson-anal discomfort, nausea as expected. No other significant issues. Chemotherapy was held partway through treatment due to tolerance. The patient was able to complete treatment as intended without break interruption or modification of prescription plan. The patient will be evaluated in 1 week for post-radiation follow-up with plans for post-treatment imaging with MRI in 10-12 weeks to assess treatment response. Staff Physician Toribio Michaud M.D. / KG 34:24 AM Electronically Signed cc: Paco Bonds MD ([facility]) Phil Dougherty MD ([facility]) Sondra Liu MD [address] [facility] [address] [address] documented in this encounter [facility] 07-23-2022 History of Present illness Narrative Radiation Oncology - On Treatment Review (OTR) Note PATIENT NAME: Kirt Reyna PATIENT Toribio Michaud MD documented in this encounter [facility] 07-23-2022 Nurse Note Status: Patient states there is no possibility she is at this time. documented in this encounter [facility] 07-22-[address] Arellano office spoke with Richard. She states they have received this referral and they called patient on 07/19 and left message for patient to call their office back to schedule. Clarissa [facility] Records faxed to Dr. Arellano. Margarita: Information ready for you. Clarissa [facility] Cardiology Referral. Dx: POTS (postural orthostatic tachycardia syndrome) [G90.A (ICD-10-CM)] Comments: Please refer to Dr. Raghu Arellano in [place] Margarita/Alvin: Can you please refer patient and follow up? Thanks! Jenna Solorio documented in this encounter [facility] 07-18-2022 History of Present illness Narrative Radiation Oncology - On Treatment Review (OTR) Note PATIENT NAME: Kirt Reyna PATIENT DIAGNOSIS: Ms. Reyna this 52-year-old woman with [id number] squamous cell carcinoma of the anal canal. COURSE: definitive and concurrent chemotherapy Current dose: 4600 cGy in 23 fx Planned dose: 5600 cGy in 28 fx Status: Patient states there is no possibility she is at this time SUBJECTIVE: Continues to have pain/discomfort in the perianal area as well as the gluteal crease and the anal canal. She manages discomfort mostly with Motrin with occasional oxycodone. She does do sitz bath's 4-5 times a day with the use of Aquaphor and Preparation H with lidocaine and Neosporin and barrier cream. She also uses ice to help with discomfort. She notes that her BMs are formed with occasional straining and has nausea. Chemotherapy remains on hold. Last 5 Encounter Wt Readings: Date: Wt: 07/18/2022 79.8 kg (176 lb) 07/17/2022 77 kg (169 lb 12.8 oz) 07/11/2022 77.2 kg (170 lb 3.2 oz) 07/10/2022 77 kg (169 lb 12.8 oz) 07/03/2022 76.7 kg (169 lb) PHYSICAL EXAM: KPS: 90 General Appearance: Alert and oriented. No acute distress. Radiation dermatitis: Moderate Abdomen: Soft. Pelvic exam: Skin and groin intact with breakdown/moist desquamation in the perianal and gluteal crease. IMAGING/LAB RESULTS: None TOXICITY ASSESSMENT (CTC v4.0): Fatigue: grade 1 - Fatigue relieved by rest Weight loss: grade 0 - No weight loss Nausea: Grade 1 - Loss of appetite without alteration in eating habits Diarrhea: grade 0 - No symptoms Urinary frequency: grade 0 - No symptoms Dysuria: grade 0 - No symptoms Radiation Dermatitis: grade 2 - Moderate to brisk erythema; patchy moist desquamation, mostly confined to skin folds and creases; moderate edema Treatment chart checked: Yes Patient treatment site reviewed and verified:Yes Port films reviewed and current:Yes Medications started: None ASSESSMENT/PLAN: Clinically stable. Toxicity within expected parameters. Continue radiation treatment as planned. Toribio Michaud MD documented in this encounter [facility] 07-18-2022 Nurse Note Status: Patient states there is no possibility she is at this time. documented in this encounter [facility] 07-17-2022 Instructions Paco Bonds MD - 07/17/2022 10:57 AM EST Restaging CT's in 6 weeks Labs same day. RTC after scans to review. documented in this encounter [facility] 07-17-2022 History of Present illness Narrative Images from the original note were not included. NAME: MichelleKirt CLINIC NO.: [id number] DATE OF SERVICE: July 17, 2022 (Vamshi) Some elements in this clinic note that are critical to medical decision making have been carefully reviewed and included from a prior clinic note dated: July 10, 2022 (Kojo) Referring Provider: Dr. Phil Dougherty Additional Clinicians involved in Kirt Reyna's care: Dr. Sondra Liu, Dr. Vitaly Vaughn, Dr. 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 Chemo RT started 06/24/22. Stopped Xeloda pills on 07/01/2022 due to developing POTS symptoms. Finishes RT next week. PLAN: Restaging CT's in 6 weeks Labs same day. RTC after scans to review. HPI: CASE HISTORY: 06/14/2022 - Xeloda dose reduced to 1000 mg BID M-F d/t intolerance 06/13/2022 - Started chemo/radiation with xeloda 1500 mg BID M-F 05/21/2022 - MRI Rectum: Anorectal tumor invading sphincter and with extension through right lower rectal wall into the mesorectal fat - broad based abutment of iliococcygeus muscle. MR - T3 N0 05/21/2022 - CT CAP: 1.8 cm sclerotic focus in prox right humerus - likely benign, 0.4 cm non-calcified pulmonary nodules, otherwise negative for metastatic disease. 04/24/2022 - Sigmoidoscopy, Dr. Vaughn: Rectal exam revealed a larger rectal mass in the right posterior lateral area, taking up approximately a third of the circumference, measured approximately 3.5 cm. 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 Oncoprotein p16 diffusely (+) 02/20/2022 - Rectal mass identified - delay in subsequent workup due to patient's concern with debilitating POTS. 2019 - POTS diagnosed just as COVID-19 hit. Updated Visit, July 17, 2022: Anorectal region is sore especially after she passes a stool. Finishes scans next week Will restage in 6 weeks Updated Visit, July 10, 2022: Kirt Reyna returns for follow-up. She remains on radiation Friday through Friday. Due to the holidays and whether there has been some delay in treatment. She has 8 more radiation treatments. The Xeloda has been on hold since 07/01/2022. She has made it clear at this time she has no interest in resuming Xeloda. She is worried that the Xeloda is causing a flareup in her POTS. She was having dizziness and an elevated heart rate. She states that her blood pressure is now getting better controlled off of Xeloda. She is having extreme pain to her rectum from the radiation. She denies any blood in her stools. Her stools are now thin in size which she states is from the inflammation from radiation. She has purchased Preparation H with lidocaine. She denies fevers, chills and signs/symptoms of infection. She has the sweats which she states is from starting menopause. Overall, she is doing fairly well today. Updated Visit, July 01, 2022: Cherie returns for follow up. Starting having POTS symptoms on . Was worse over the weekend. Had dizziness, heart racing, BP dropping. She did not pass out. Denies fevers, chills, nausea or vomiting. She describes her stool as fluctuating between constipation and diarrhea. She is having some rectal pain and burning. She did also have one mouth sore that is healing up. Her feet are now tender down to the ball of the foot. Hands are not bothering her. Updated Visit, June 24, 2022: Kirt Reyna returns for follow-up. She remains on Xeloda 1000 mg twice daily concurrent with radiation Friday through Friday. She has developed some mouth sores. Her tongue has been bothering her. She had intermittent diarrhea and also constipation. She is not taking anything for either the diarrhea or constipation. She noticed a lot of mucus in her stool which she actually felt might be part of the tumor. She denies blood in her stools. No hand-foot syndrome. She denies fevers, chills, night sweats and signs/symptoms of infection. Updated Visit, June 17, 2022: Doing well overall after reducing the dose of Xeloda to 1000 mg BID. Nausea a little better. Hands and feet are ok. Will continue IV hydration prophylactically. Updated Visit, May 27, 2022: Cherie is doing well and has no incontinence. We reviewed her imaging together and shared concerns of extent of involvement with sphincter pressing the need for adding chemotherapy. Xeloda will be daily on days of RT. Her biggest concern is regarding POTS. Mother Myrna is with her POTS closely associated with EDS and she has hypermobility. Also can be associated with platelet dysfunction but she has not demonstrated any bleeding tendencies. Consider Genetic counseling in future. Initial Visit, May 06, 2022: Kirt Reyna presents today Hematology and Oncology evaluation. She is a 52 year old female who has a history of significantly symptomatic POTS for which she is on Florinef, who has been diagnosed with Anal Ca presenting with intermittent rectal bleeding that became progressively more frequent. Her fiance Garrick Youssef was unable to accompany her but she has plenty of support at home She additionally reports: Molar in 1993, subsequent successful of her daughter in 1995 and son in 2003. She is not incontinent and pain is well managed. REVIEW OF SYSTEMS Per HPI and otherwise negative by full review of organ systems. ECOG PERFORMANCE STATUS: 0 PHYSICAL EXAMINATION: Vitals: BP 133/70 Pulse 78 Temp (Src) 97.2 (Temporal) Resp 16 Ht 5' 7.008 (1.70m) Wt 169 lb 12.8 oz (77.0kg) SpO2 100% BMI 26.59 kg/(m^2). Body surface area is 1.91 meters squared. PHYSICAL EXAMINATION Exam limited to gross visualization where appropriate due to COVID-19. Gen.: This is an age-appropriate patient in no acute distress. Head: Appears atraumatic with no visible lesions. Eyes: Pupils equally round and reactive to light, extraocular muscles are intact. Neck: Supple. Mouth: Masked. Respiratory: Appears to be respiring comfortably. Neurologic: Nonfocal to gross visualization. Alert and oriented 3. Psychiatric: No evidence of inappropriate anxiety or depression. Skin: Visible areas of skin without rash, lesions, wounds or petechiae. ALLERGIES: ALLERGIES Allergen Reactions Penicillin G Unknown Sulfa (Sulfonamide * Unknown MEDICATIONS: diphenhydrAMINE (BENADRYL) 12.5 mg/5 mL liquid Cqcxcwmje-Wrvmazsctcrspt-Ocev 2.8-0.55 % gel Use 1 Applicator by RECTAL route twice daily as needed. oxyCODONE-acetaminophen (PERCOCET) 5-325 mg tablet Take one tablet every six hours as needed for pain. May alternate with NSAIDs (Motrin, Alleve, etc). Take necessary precautions to avoid constipation. lidocaine (XYLOCAINE) 2 % jelly Apply 1-2 times a day to affected area as needed for pain/discomfort. Test in small unaffected area first for reaction. diphenhydrAMINE 12.5 mg/5 mL lidocaine visc 2% MAALOX 200-200-20 mg/5 mL nystatin prednisoLONE 15 mg/5 mL oral liquid 1:1:1:1:1 (CPD) Swish and swallow 5 mL by mouth every 6 hours as needed. multivitamin tablet Take 1 tablet by mouth once daily. acetaminophen/diphenhydramine (TYLENOL PM EXTRA STRENGTH ORAL) Take 500 mg by mouth as needed. ondansetron (ZOFRAN) 8 mg tablet Take 1 tablet by mouth every 8 hours as needed for nausea/vomiting. prochlorperazine (COMPAZINE) 10 mg tablet Take 1 tablet by mouth every 6 hours as needed. fludrocortisone (FLORINEF) 0.1 mg tablet TAKE 0.5 TABLET BY MOUTH TWICE A DAY iv contrast (will be provided with radiology test) CT Chest ABD/PEL-Inject, intravenously, once for 1 dose.No IV access, insert saline lock prior to the beginning of sedation, infusion, injection of imaging exam. Discontinue saline lock post exam. If Pt. has a central line or IVAD, may access for administration according to line specific nursing protocol. Once exam is complete flush line and de-access according to line specific nursing protocol in the CT contrast administration guidelines link. enteric contrast (will be provided with radiology test) For CT CHESTABD/PEL W IVCON Routine order Administer, As Directed One Time Only, via Oral, Rectal, both Oral and Rectal, Enteric Tube, Stoma or Indwelling Catheter, Enteric Contrast as designated per enteric contrast guidelines capecitabine (XELODA) 500 mg tablet Take 2 tablet by mouth , with food, twice daily only on days of radiation (M-F) each week (Patient not taking: Reported on 07/17/2022) LABORATORY VALUES: WBC (k/uL) Date Value 07/10/2022 6.07 RBC (m/uL) Date Value 07/10/2022 4.19 Hemoglobin (g/dL) Date Value 07/10/2022 12.6 Hematocrit (%) Date Value 07/10/2022 37.4 MCV (fL) Date Value 07/10/2022 89.3 MCH (pg) Date Value 07/10/2022 30.1 MCHC (g/dL) Date Value 07/10/2022 33.7 RDW-CV (%) Date Value 07/10/2022 12.9 Platelet Count (k/uL) Date Value 07/10/2022 218 MPV (fL) Date Value 07/10/2022 9.4 Glucose (mg/dL) Date Value 07/10/2022 95 BUN (mg/dL) Date Value 07/10/2022 19 Creatinine (mg/dL) Date Value 07/10/2022 0.66 Sodium (mmol/L) Date Value 07/10/2022 139 Potassium (mmol/L) Date Value 07/10/2022 4.0 Chloride (mmol/L) Date Value 07/10/2022 102 CO2 (mmol/L) Date Value 07/10/2022 28 Protein, Total (g/dL) Date Value 07/10/2022 7.5 Albumin (g/dL) Date Value 07/10/2022 4.5 Calcium, Total (mg/dL) Date Value 07/10/2022 9.4 Alkaline Phosphatase (U/L) Date Value 07/10/2022 97 Bilirubin, Total (mg/dL) Date Value 07/10/2022 0.2 AST (U/L) Date Value 07/10/2022 20 ALT (U/L) Date Value 07/10/2022 18 DIAGNOSIS: (C21.0) Anal cancer (HCC) (primary encounter diagnosis) Plan: CT ABD/PEL W IVCON, CT CHEST W IVCON, CBC + DIFF, COMP METABOLIC PANEL (G90.A) POTS (postural orthostatic tachycardia syndrome) Plan: CONSULT TO CARDIOLOGY PAST MEDICAL HISTORY Diagnosis Date Hiatal hernia POTS (postural orthostatic tachycardia syndrome) POTS (postural orthostatic tachycardia syndrome) 05/27/2022 Vertigo 1970 PAST SURGICAL HISTORY Procedure Laterality Date D&C, DIAG AND/OR THERAPEUTIC molar OVARIAN CYSTECTOMY UNI/BI Social History Tobacco Use Smoking status: Never Passive exposure: Never Smokeless tobacco: Never Vaping Use Vaping Use: Never used Substance Use Topics Alcohol use: No Drug use: No FAMILY HISTORY Problem Relation Age of Onset other (cysts [Other]) Mother other (parkinson [Other]) Father Diabetes Father I spent a total of 30 minutes on the date of the service which included preparing to see the patient, lsna-ll-[id number] patient care, completing clinical documentation, performing a medically appropriate examination, counseling and educating the patient/family/caregiver, ordering medications, tests, or procedures, and independently interpreting results (not separately reported). Paco Bonds MD, CPE Hematology and Oncology Services Provided at: [place], [place] CC: Dr. Phil Liu documented in this encounter [facility] 07-12-2022 Miscellaneous Notes ART THERAPY NOTE SERVICE DATE: 07/12/2022 SERVICE TIME: 10:30 Referred By: self Reason for Referral: Patient request Session Type: Initial Time Spent (minutes): 120 Goals: Diversion From Pain;Coping Through Diversion;Reduce Anxiety Interventions: Art Based Therapy Response Before After Mood 2/4 0/4 Anxiety 2/10 0/10 Pain 4 2/10 Scale: 0 = No pain/anxiety 10 = Worst possible pain/anxiety Response: Media Used: Paints Patient's Verbal Response: Positive Family Present: Yes Family Member: friend Family Verbal Response: Positive Outcome: Goals: Met Follow Up: Will Follow Up as Able COMMENTS: Patient chose to paint during art therapy today. Patient shared that her cancer had put her in a dark place but that she is looking forward to better days ahead as she is almost finished with her treatments. Patient shared that she is planning to focus on the positive that she she has experienced as a result of her illness. Will follow up with patient at her request. SIGNATURE: Bear Chun PATIENT NAME: Kirt Reyna DATE: July 12, 2022 TIME: 11:59 AM PAGER/CONTACT #: documented in this encounter [facility] 07-11-2022 History of Present illness Narrative Radiation Oncology - On Treatment Review (OTR) Note PATIENT NAME: Kirt Reyna PATIENT DIAGNOSIS: Ms. Reyna this 52-year-old woman with [id number] squamous cell carcinoma of the anal canal. COURSE: definitive and concurrent chemotherapy Current dose: 3800 cGy in 19 fx Planned dose: 5600 cGy in 28 fx Status: Patient states there is no possibility she is at this time SUBJECTIVE: Notes progressive discomfort in the perianal area which she rates today at 4/10 managing with anti-inflammatories (Advil) as well as sitz baths and ice and Preparation H with lidocaine and moisturizer/barrier cream. She reports her bowel movements are soft but formed without straining or blood but pain worsens to -02/2010 with bowel movements. She does have nausea controlled with antiemetics and wristband and continues to remain off chemotherapy. She denies any discomfort with urination but does have urgency and endorses fatigue with stable appetite and hydration and weight. Last 3 Encounter Wt Readings: Date: Wt: 07/11/2022 77.2 kg (170 lb 3.2 oz) 07/10/2022 77 kg (169 lb 12.8 oz) 07/03/2022 76.7 kg (169 lb) PHYSICAL EXAM: KPS: 90 General Appearance: Alert and oriented. No acute distress. Radiation dermatitis: none Abdomen: Soft. Nontender. Nondistended. Pelvic exam: Groin intact, skin irritation with start of breakdown in the perianal and gluteal area. IMAGING/LAB RESULTS: None TOXICITY ASSESSMENT (CTC v4.0): Fatigue: grade 1 - Fatigue relieved by rest Weight loss: grade 0 - No weight loss Nausea: Grade 1 - Loss of appetite without alteration in eating habits Diarrhea: grade 0 - No symptoms Urinary frequency: grade 1 - present Dysuria: grade 0 - No symptoms Radiation Dermatitis: grade 1 - Faint erythema or dry desquamation Treatment chart checked: Yes Patient treatment site reviewed and verified:Yes Port films reviewed and current:Yes Medications started: None ASSESSMENT/PLAN: Clinically stable. Toxicity within expected parameters. Continue radiation treatment as planned. Toribio Michaud MD documented in this encounter [facility] 07-10-2022 History of Present illness Narrative Oncology Nutrition Therapy Reassessment RECOMMENDED MALNUTRITION DIAGNOSIS: NO MALNUTRITION IDENTIFIED Some elements copied from my note on 06/28/2022, have been updated and all reflect current decision making from today, 07/10/2022 Nutrition Diagnosis: Increased protein and energy needs related to hypermetabolic disease process as evidenced by need for weight maintenance and preservation of muscle mass. Nutrition Intervention: -continue current meal structure of 3 meals/day + snacks prn -reviewed lean protein sources and encouraged decreasing consumption of red meat and processed meats -discussed supplementation -continue Boost High Protein 1x per day -encouraged adequate hydration Nutrition Monitoring & Evaluation: -PO Intake -Wt status -BM's -Supplement tolerance/acceptance -Biochemical Markers -Plan of care Date of last encounter: June 28, 2022 Patient met goal(s): Yes Patient's symptoms are: None Pt presents for nutrition counseling for anal cancer. Pt is currently being treated with RT, Xeloda (currently held). Pt denies any chewing/swallowing issues, denies current N/V/D/C. Pt does report occasional alterations between constipation and loose stool, but states she has been able to manage it with diet and OTC remedies. Appetite and intakes remain good. Patient continues to consume small frequent meals and snacks. She is taking ONS once per day and will increase as needed. Pt had question regarding healthier protein sources these were reviewed. Thank you for allowing me to participate in the care of this pt. Readiness to Learn: Cognitive ability: Alert and oriented Motivation to learn: Interested Family support: High - Very involved in pt care Instruction provided to: Patient and family member Patient learns best by: Multiple Methods Factors affecting learning: None Physical limitations affecting learning: None Educational materials provided: none this visit Anthropometrics: Height: Last 1 Encounter Ht Readings: Date: Ht: 07/10/2022 170.2 cm (5' 7.01 ) Current weight: Last 1 Encounter Wt Readings: Date: Wt: 07/10/2022 77 kg (169 lb 12.8 oz) Estimated body mass index is 26.59 kg/m as calculated from the following: Height as of an earlier encounter on 07/10/22: 170.2 cm (5' 7.01 ). Weight as of an earlier encounter on 07/10/22: 77 kg (169 lb 12.8 oz). Resting Metabolic Rate: 1411 Weight Change: n/a Dosing Weight: 77 kg Estimated kilocalorie needs: 1925 kilocalories determined by 25 kcal/kg Estimated protein needs: 77-100 grams determined by 1.0-1.3 g/kg Dosing weight Estimated fluid needs: ~4807-5763 milliliters based on 1 mL per kcal (unless otherwise noted) Nutrition Focused Physical Exam: Unable to perform exam due to potential for patient discomfort (physical/emotional), will re-attempt during reassessment. Potential Signs of Inflammation: chronic condition Allergies: Penicillin G and Sulfa (Sulfonamide Antibiotics) Medications: Current Outpatient Medications Medication Sig Dispense Refill diphenhydrAMINE (BENADRYL) 12.5 mg/5 mL liquid Oezdjhpxu-Xijzewamxeakgq-Fgvs 2.8-0.55 % gel Use 1 Applicator by RECTAL route twice daily as needed. 100 g 0 oxyCODONE-acetaminophen (PERCOCET) 5-325 mg tablet Take one tablet every six hours as needed for pain. May alternate with NSAIDs (Motrin, Alleve, etc). Take necessary precautions to avoid constipation. 30 tablet 0 lidocaine (XYLOCAINE) 2 % jelly Apply 1-2 times a day to affected area as needed for pain/discomfort. Test in small unaffected area first for reaction. 30 mL 0 diphenhydrAMINE 12.5 mg/5 mL lidocaine visc 2% MAALOX 200-200-20 mg/5 mL nystatin prednisoLONE 15 mg/5 mL oral liquid 1:1:1:1:1 (CPD) Swish and swallow 5 mL by mouth every 6 hours as needed. 300 mL 1 capecitabine (XELODA) 500 mg tablet Take 2 tablet by mouth , with food, twice daily only on days of radiation (M-F) each week 20 tablet 4 multivitamin tablet Take 1 tablet by mouth once daily. acetaminophen/diphenhydramine (TYLENOL PM EXTRA STRENGTH ORAL) Take 500 mg by mouth as needed. ondansetron (ZOFRAN) 8 mg tablet Take 1 tablet by mouth every 8 hours as needed for nausea/vomiting. 90 tablet 1 prochlorperazine (COMPAZINE) 10 mg tablet Take 1 tablet by mouth every 6 hours as needed. 100 tablet 1 fludrocortisone (FLORINEF) 0.1 mg tablet TAKE 0.5 TABLET BY MOUTH TWICE A DAY No current facility-administered medications for this visit. Need for Follow up: prn Referred/Supervised by: Andrei/Dr. Stevan GARCIA Billing Type: Re-assess/15 min 2 units Time Spent with Patient: 30 minutes Signed by: Carmina Forbes MS, RDN, LD documented in this encounter [facility] 07-10-2022 History of Present illness Narrative Images from the original note were not included. NAME: Kirt Reyna CLINIC NO.: [id number] DATE OF SERVICE: July 10, 2022 (Kojo) (Elements copied from Daphne Dimas PA-C note dated July 01, 2022, have been reviewed and updated where appropriate, and all reflect current assessment and medical decision making during today's encounter, July 10, 2022) (Daphne Dimas PA-C) Referring Provider: Dr. Phil Dougherty Additional Clinicians involved in Kirt Reyna's care: Dr. Sondra Liu, Dr. Vitaly Vaughn, Dr. 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 Chemo RT started 06/24/22. Stopped Xeloda pills on 07/01/2022 due to developing POTS symptoms. PLAN: Xeloda has been on hold since 07/01/2022. Patient has no interest in resuming Xeloda at this time. She will continue radiation per Dr. Michaud. Plan hydration on Friday, Friday and Friday of each week. She will follow up in 1 week with labs. HPI: CASE HISTORY: 06/14/2022 - Xeloda dose reduced to 1000 mg BID M-F d/t intolerance 06/13/2022 - Started chemo/radiation with xeloda 1500 mg BID M-F 05/21/2022 - MRI Rectum: Anorectal tumor invading sphincter and with extension through right lower rectal wall into the mesorectal fat - broad based abutment of iliococcygeus muscle. MR - T3 N0 05/21/2022 - CT CAP: 1.8 cm sclerotic focus in prox right humerus - likely benign, 0.4 cm non-calcified pulmonary nodules, otherwise negative for metastatic disease. 04/24/2022 - Sigmoidoscopy, Dr. Vaughn: Rectal exam revealed a larger rectal mass in the right posterior lateral area, taking up approximately a third of the circumference, measured approximately 3.5 cm. 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 Oncoprotein p16 diffusely (+) 02/20/2022 - Rectal mass identified - delay in subsequent workup due to patient's concern with debilitating POTS. 2019 - POTS diagnosed just as COVID-19 hit. Updated Visit, July 10, 2022: Kirt Reyna returns for follow-up. She remains on radiation Friday through Friday. Due to the holidays and whether there has been some delay in treatment. She has 8 more radiation treatments. The Xeloda has been on hold since 07/01/2022. She has made it clear at this time she has no interest in resuming Xeloda. She is worried that the Xeloda is causing a flareup in her POTS. She was having dizziness and an elevated heart rate. She states that her blood pressure is now getting better controlled off of Xeloda. She is having extreme pain to her rectum from the radiation. She denies any blood in her stools. Her stools are now thin in size which she states is from the inflammation from radiation. She has purchased Preparation H with lidocaine. She denies fevers, chills and signs/symptoms of infection. She has the sweats which she states is from starting menopause. Overall, she is doing fairly well today. Updated Visit, July 01, 2022: Cherie returns for follow up. Starting having POTS symptoms on . Was worse over the weekend. Had dizziness, heart racing, BP dropping. She did not pass out. Denies fevers, chills, nausea or vomiting. She describes her stool as fluctuating between constipation and diarrhea. She is having some rectal pain and burning. She did also have one mouth sore that is healing up. Her feet are now tender down to the ball of the foot. Hands are not bothering her. Updated Visit, June 24, 2022: Kirt Reyna returns for follow-up. She remains on Xeloda 1000 mg twice daily concurrent with radiation Friday through Friday. She has developed some mouth sores. Her tongue has been bothering her. She had intermittent diarrhea and also constipation. She is not taking anything for either the diarrhea or constipation. She noticed a lot of mucus in her stool which she actually felt might be part of the tumor. She denies blood in her stools. No hand-foot syndrome. She denies fevers, chills, night sweats and signs/symptoms of infection. Updated Visit, June 17, 2022: Doing well overall after reducing the dose of Xeloda to 1000 mg BID. Nausea a little better. Hands and feet are ok. Will continue IV hydration prophylactically. Updated Visit, May 27, 2022: Cherie is doing well and has no incontinence. We reviewed her imaging together and shared concerns of extent of involvement with sphincter pressing the need for adding chemotherapy. Xeloda will be daily on days of RT. Her biggest concern is regarding POTS. Mother Myrna is with her POTS closely associated with EDS and she has hypermobility. Also can be associated with platelet dysfunction but she has not demonstrated any bleeding tendencies. Consider Genetic counseling in future. Initial Visit, May 06, 2022: Kirt Reyna presents today Hematology and Oncology evaluation. She is a 52 year old female who has a history of significantly symptomatic POTS for which she is on Florinef, who has been diagnosed with Anal Ca presenting with intermittent rectal bleeding that became progressively more frequent. Her fiance Garrick Youssef was unable to accompany her but she has plenty of support at home She additionally reports: Molar in 1993, subsequent successful of her daughter in 1995 and son in 2003. She is not incontinent and pain is well managed. REVIEW OF SYSTEMS Per HPI and otherwise negative by full review of organ systems. ECOG PERFORMANCE STATUS: 0 PHYSICAL EXAMINATION: Vitals: BP 147/68 Pulse 87 Temp (Src) 97.9 (Temporal) Resp 16 Ht 5' 7.008 (1.70m) Wt 169 lb 12.8 oz (77.0kg) SpO2 97% BMI 26.59 kg/(m^2). Body surface area is 1.91 meters squared. PHYSICAL EXAMINATION Exam limited to gross visualization where appropriate due to COVID-19. Gen.: This is an age-appropriate patient in no acute distress. Head: Appears atraumatic with no visible lesions. Eyes: Pupils equally round and reactive to light, extraocular muscles are intact. Neck: Supple. Mouth: Masked. Respiratory: Appears to be respiring comfortably. Neurologic: Nonfocal to gross visualization. Alert and oriented 3. Psychiatric: No evidence of inappropriate anxiety or depression. Skin: Visible areas of skin without rash, lesions, wounds or petechiae. ALLERGIES: ALLERGIES Allergen Reactions Penicillin G Unknown Sulfa (Sulfonamide * Unknown MEDICATIONS: diphenhydrAMINE (BENADRYL) 12.5 mg/5 mL liquid Zuynlwbai-Ulfdmdvuwjwsoe-Gdty 2.8-0.55 % gel Use 1 Applicator by RECTAL route twice daily as needed. oxyCODONE-acetaminophen (PERCOCET) 5-325 mg tablet Take one tablet every six hours as needed for pain. May alternate with NSAIDs (Motrin, Alleve, etc). Take necessary precautions to avoid constipation. lidocaine (XYLOCAINE) 2 % jelly Apply 1-2 times a day to affected area as needed for pain/discomfort. Test in small unaffected area first for reaction. diphenhydrAMINE 12.5 mg/5 mL lidocaine visc 2% MAALOX 200-200-20 mg/5 mL nystatin prednisoLONE 15 mg/5 mL oral liquid 1:1:1:1:1 (CPD) Swish and swallow 5 mL by mouth every 6 hours as needed. capecitabine (XELODA) 500 mg tablet Take 2 tablet by mouth , with food, twice daily only on days of radiation (M-F) each week multivitamin tablet Take 1 tablet by mouth once daily. acetaminophen/diphenhydramine (TYLENOL PM EXTRA STRENGTH ORAL) Take 500 mg by mouth as needed. ondansetron (ZOFRAN) 8 mg tablet Take 1 tablet by mouth every 8 hours as needed for nausea/vomiting. prochlorperazine (COMPAZINE) 10 mg tablet Take 1 tablet by mouth every 6 hours as needed. fludrocortisone (FLORINEF) 0.1 mg tablet TAKE 0.5 TABLET BY MOUTH TWICE A DAY LABORATORY VALUES: Hemoglobin (g/dL) Date Value 07/10/2022 12.6 Hematocrit (%) Date Value 07/10/2022 37.4 WBC (k/uL) Date Value 07/10/2022 6.07 Platelet Count (k/uL) Date Value 07/10/2022 218 DIAGNOSIS: (C21.0) Anal cancer (HCC) (primary encounter diagnosis) (G90.A) POTS (postural orthostatic tachycardia syndrome) PAST MEDICAL HISTORY Diagnosis Date Hiatal hernia POTS (postural orthostatic tachycardia syndrome) POTS (postural orthostatic tachycardia syndrome) 05/27/2022 Vertigo 1969 PAST SURGICAL HISTORY Procedure Laterality Date D&C, DIAG AND/OR THERAPEUTIC molar OVARIAN CYSTECTOMY UNI/BI Social History Tobacco Use Smoking status: Never Passive exposure: Never Smokeless tobacco: Never Substance Use Topics Alcohol use: No Drug use: No FAMILY HISTORY Problem Relation Age of Onset other (cysts [Other]) Mother other (parkinson [Other]) Father Diabetes Father Gerardo Mckinnon APRN.CNP Hematology and Oncology Services Provided at: [place], [place] CC: Dr. Phil Liu I spent a total of 30 minutes on the date of the service which included preparing to see the patient, [id number] patient care, completing clinical documentation, obtaining and/or reviewing separately obtained history, performing a medically appropriate examination, counseling and educating the patient/family/caregiver, ordering medications, tests, or procedures, independently interpreting results (not separately reported), and communicating results to the patient/family/caregiver. documented in this encounter [facility] 07-03-2022 History of Present illness Narrative Radiation Oncology - On Treatment Review (OTR) Note PATIENT NAME: Kirt Reyna PATIENT DIAGNOSIS: Ms. Reyna this 52-year-old woman with [id number] squamous cell carcinoma of the anal canal. COURSE: definitive and concurrent chemotherapy Current dose: 3000 cGy in 15 fx Planned dose: 5600 cGy in 28 fx Status: Patient states there is no possibility she is at this time SUBJECTIVE: Notes discomfort in the perianal area which he is managing with sitz bath's with Domeboro solution 3 times a day and uses Tylenol/Advil. She uses a barrier cream twice a day. Her stool is mostly formed with occasional diarrhea and occasional blood in her stool but denies any straining or fecal incontinence or urinary burning or nausea. Her chemo has been held due to concerns for worsening of her POTS and she has increased her dose of fludrocortisone. She does note fatigue with good appetite and hydration with stable weight. Last 4 Encounter Wt Readings: Date: Wt: 07/03/2022 76.7 kg (169 lb) 07/01/2022 76.5 kg (168 lb 9.6 oz) 06/26/2022 76.1 kg (167 lb 12.8 oz) 06/24/2022 75.7 kg (166 lb 12.8 oz) PHYSICAL EXAM: KPS: 90 General Appearance: Alert and oriented. No acute distress. Radiation dermatitis: Mild Abdomen: Soft. Nontender. Nondistended. Pelvic exam: Skin in the area of the groin and the perianal area are irritated but intact. IMAGING/LAB RESULTS: None TOXICITY ASSESSMENT (CTC v4.0): Fatigue: grade 1 - Fatigue relieved by rest Weight loss: grade 0 - No weight loss Nausea: Grade 0 - No Symptoms Diarrhea: grade 1 - Increase to >4 stools per day over baseline; mild increase in ostomy output compared to baseline Urinary frequency: grade 0 - No symptoms Dysuria: grade 0 - No symptoms Radiation Dermatitis: grade 1 - Faint erythema or dry desquamation Treatment chart checked: Yes Patient treatment site reviewed and verified:Yes Port films reviewed and current:Yes Medications started: None ASSESSMENT/PLAN: Clinically stable. Toxicity within expected parameters. Continue radiation treatment as planned. MD Toribio Quintana MD documented in this encounter [facility] 07-02-2022 Miscellaneous Notes Pt was notified and would also like to know what out of pocket cost would be for what he recommended. Pharmacy was contacted via teams to ask. Eliza Ceballos, RN Heidi/Jose R can you inform Kirt of Dr Michaud's reccomendations as the prescribed lidocaine is not covered by insurance: Would have her try preparation H with lidocaine for topical relief - thanks! Toribio Would have her try preparation H with lidocaine for topical relief - thanks! Toribio PA denied, no alternatives available on the marker, unless you would like to try emla cream. Ambulatory Pharmacy Prior Authorization Note Provider Intervention Required?: No- Pharmacy completed on your behalf. Drug: Zuncsvhce-Kghvlirzankkxo-Bsja Gel Cover My Meds Humphrey: [id number] Determination: Denied PA Denied because: not covered at all Prior Authorization/Case #: [id number] Prior Authorization Expiration: Time to PA Submission in CMM: 15 min Time to PA Determination in CMM: 2 days Additional Information: phone fax For questions relating to this submission, please contact [facility] at [phone] documented in this encounter [facility] 06-28-2022 Miscellaneous Notes Lidocaine is on a manufacture backorder nationwide. This pended script's product is available if you are agreeable to it. documented in this encounter [facility] 06-26-2022 History of Present illness Narrative Radiation Oncology - On Treatment Review (OTR) Note PATIENT NAME: Kirt Reyna PATIENT DIAGNOSIS: Ms. Reyna this 52-year-old woman with [id number] squamous cell carcinoma of the anal canal. COURSE: definitive and concurrent chemotherapy Current dose: 2000 cGy in 10 fx Planned dose: 5600 cGy in 28 fx Status: Patient states there is no possibility she is at this time SUBJECTIVE: Tolerating XRT well and continues to note formed stool with no blood as well as mucus output. She does note discomfort in the perirectal area which she manages with Tylenol and sitz baths. She denies any skin breakdown and use a moisturizer 2-3 times a day. She rates her discomfort at 3/10. She did have some stomatitis with the Xeloda and has been using a baking soda rinse and Zofran for nausea. Last 5 Encounter Wt Readings: Date: Wt: 06/26/2022 76.1 kg (167 lb 12.8 oz) 06/24/2022 75.7 kg (166 lb 12.8 oz) 06/19/2022 76.2 kg (168 lb) 06/17/2022 75.8 kg (167 lb) 05/27/2022 77.4 kg (170 lb 9.6 oz) PHYSICAL EXAM: KPS: 90 General Appearance: Alert and oriented. No acute distress. Radiation dermatitis: Mild Abdomen: Soft. IMAGING/LAB RESULTS: None TOXICITY ASSESSMENT (CTC v4.0): Fatigue: grade 1 - Fatigue relieved by rest Weight loss: grade 0 - No weight loss Nausea: Grade 1 - Loss of appetite without alteration in eating habits Diarrhea: grade 0 - No symptoms Urinary frequency: grade 0 - No symptoms Dysuria: grade 0 - No symptoms Radiation Dermatitis: grade 1 - Faint erythema or dry desquamation Treatment chart checked: Yes Patient treatment site reviewed and verified:Yes Port films reviewed and current:Yes Medications started: Yes, topical lidocaine and oxycodone. ASSESSMENT/PLAN: Clinically stable. Toxicity within expected parameters. Continue radiation treatment as planned. Toribio Michaud MD documented in this encounter [facility] 06-26-2022 Nurse Note Status: No possibility of . Eliza Ceballos RN documented in this encounter [facility] 06-24-2022 History of Present illness Narrative Images from the original note were not included. NAME: Michelle Kirt CLINIC NO.: [id number] DATE OF SERVICE: June 24, 2022 (Kojo) Some elements in this clinic note that are critical to medical decision making have been carefully reviewed and included from a prior clinic note dated: June 17, 2022. (Dr. Bonds) Referring Provider: Dr. Phil Dougherty Additional Clinicians involved in Kirt Reyna's care: Dr. Sondra Liu, Dr. Vitaly Vaughn, Dr. Toribio Michaud DIAGNOSIS: Anal Ca. 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 Will need Chemo RT. Will await staging studies. PLAN: Continue Xeloda on days of radiation - Xeloda 1000 mg twice daily Friday through Friday. Will be taking Xeloda daily on days of radiation only. Plan hydration on Friday, Friday and Fridayof each week. Follow up on Friday07/01/2022. Labs every Friday - Prior to starting Xeloda for each week. HPI: CASE HISTORY: 05/21/2022 - MRI Rectum: Anorectal tumor invading sphincter and with extension through right lower rectal wall into the mesorectal fat - broad based abutment of iliococcygeus muscle. MR - T3 N0 05/21/2022 - CT CAP: 1.8 cm sclerotic focus in prox right humerus - likely benign, 0.4 cm non-calcified pulmonary nodules, otherwise negative for metastatic disease. 04/24/2022 - Sigmoidoscopy, Dr. Vaughn: Rectal exam revealed a larger rectal mass in the right posterior lateral area, taking up approximately a third of the circumference, measured approximately 3.5 cm. 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 Oncoprotein p16 diffusely (+) 02/20/2022 - Rectal mass identified - delay in subsequent workup due to patient's concern with debilitating POTS. 2019 - POTS diagnosed just as COVID-19 hit. Updated Visit, June 24, 2022: Kirt Reyna returns for follow-up. She remains on Xeloda 1000 mg twice daily concurrent with radiation Friday through Friday. She has developed some mouth sores. Her tongue has been bothering her. She had intermittent diarrhea and also constipation. She is not taking anything for either the diarrhea or constipation. She noticed a lot of mucus in her stool which she actually felt might be part of the tumor. She denies blood in her stools. No hand-foot syndrome. She denies fevers, chills, night sweats and signs/symptoms of infection. Updated Visit, June 17, 2022: Doing well overall after reducing the dose of Xeloda to 1000 mg BID. Nausea a little better. Hands and feet are ok. Will continue IV hydration prophylactically. Updated Visit, May 27, 2022: Cherie is doing well and has no incontinence. We reviewed her imaging together and shared concerns of extent of involvement with sphincter pressing the need for adding chemotherapy. Xeloda will be daily on days of RT. Her biggest concern is regarding POTS. Mother Myrna is with her POTS closely associated with EDS and she has hypermobility. Also can be associated with platelet dysfunction but she has not demonstrated any bleeding tendencies. Consider Genetic counseling in future. Initial Visit, May 06, 2022: Kirt Reyna presents today Hematology and Oncology evaluation. She is a 52 year old female who has a history of significantly symptomatic POTS for which she is on Florinef, who has been diagnosed with Anal Ca presenting with intermittent rectal bleeding that became progressively more frequent. Her fiance Garrick Youssef was unable to accompany her but she has plenty of support at home She additionally reports: Molar in 1993, subsequent successful of her daughter in 1995 and son in 2003. She is not incontinent and pain is well managed. REVIEW OF SYSTEMS Per HPI and otherwise negative by full review of organ systems. ECOG PERFORMANCE STATUS: 0 PHYSICAL EXAMINATION: Vitals: BP 141/71 Pulse 90 Temp (Src) 97.6 (Temporal) Resp 16 Ht 5' 7.008 (1.70m) Wt 166 lb 12.8 oz (75.7kg) SpO2 99% BMI 26.12 kg/(m^2). Body surface area is 1.89 meters squared. Exam limited to gross visualization where appropriate due to COVID-19. Gen.: This is an age-appropriate patient in no acute distress. Head: Appears atraumatic with no visible lesions. Eyes: Pupils equally round and reactive to light, extraocular muscles are intact. Neck: Supple. Mouth: Masked. Respiratory: Appears to be respiring comfortably. Neurologic: Nonfocal to gross visualization. Alert and oriented 3. Psychiatric: No evidence of inappropriate anxiety or depression. Skin: Visible areas of skin without rash, lesions, wounds or petechiae. ALLERGIES: ALLERGIES Allergen Reactions Penicillin G Unknown Sulfa (Sulfonamide * Unknown MEDICATIONS: capecitabine (XELODA) 500 mg tablet Take 2 tablet by mouth , with food, twice daily only on days of radiation (M-F) each week multivitamin tablet Take 1 tablet by mouth once daily. acetaminophen/diphenhydramine (TYLENOL PM EXTRA STRENGTH ORAL) Take 500 mg by mouth as needed. ondansetron (ZOFRAN) 8 mg tablet Take 1 tablet by mouth every 8 hours as needed for nausea/vomiting. prochlorperazine (COMPAZINE) 10 mg tablet Take 1 tablet by mouth every 6 hours as needed. fludrocortisone (FLORINEF) 0.1 mg tablet TAKE 0.5 TABLET BY MOUTH TWICE A DAY iv contrast (will be provided with radiology test) MRI Rectum Inject, intravenously, once for 1 dose. No IV access, insert saline lock prior to the beginning of sedation, infusion, injection of imaging exam. Discontinue saline lock post exam. If Pt has a central line or IVAD, may access for administration according to line specific nursing protocol. Once exam is complete flush line and de-access according to line specific nursing protocol in the MR contrast administration guidelines link. enteric contrast (will be provided with radiology test) MRI RECTUM WO/W. Administer, As Directed One Time Only, via Oral, Rectal, both Oral and Rectal, Enteric Tube, Stoma or Indwelling Catheter, Enteric Contrast as designated per enteric contrast guidelines LABORATORY VALUES: Hemoglobin (g/dL) Date Value 06/24/2022 13.1 Hematocrit (%) Date Value 06/24/2022 39.1 WBC (k/uL) Date Value 06/24/2022 3.65 Platelet Count (k/uL) Date Value 06/24/2022 186 DIAGNOSIS: (C21.0) Anal cancer (HCC) (primary encounter diagnosis) (G90.A) POTS (postural orthostatic tachycardia syndrome) PAST MEDICAL HISTORY Diagnosis Date Hiatal hernia POTS (postural orthostatic tachycardia syndrome) POTS (postural orthostatic tachycardia syndrome) 05/27/2022 Vertigo 1969 PAST SURGICAL HISTORY Procedure Laterality Date D&C, DIAG AND/OR THERAPEUTIC molar OVARIAN CYSTECTOMY UNI/BI Social History Tobacco Use Smoking status: Never Passive exposure: Never Smokeless tobacco: Never Substance Use Topics Alcohol use: No Drug use: No FAMILY HISTORY Problem Relation Age of Onset other (cysts [Other]) Mother other (parkinson [Other]) Father Diabetes Father Gerardo Mckinnon APRN.[employer] Hematology and Oncology Services Provided at: [facility], [place], [place] CC: Dr. Phil Liu I spent a total of 30 minutes on the date of the service which included preparing to see the patient, [id number] patient care, completing clinical documentation, obtaining and/or reviewing separately obtained history, performing a medically appropriate examination, counseling and educating the patient/family/caregiver, ordering medications, tests, or procedures, independently interpreting results (not separately reported), and communicating results to the patient/family/caregiver. documented in this encounter [facility] 06-19-2022 History of Present illness Narrative Radiation Oncology - On Treatment Review (OTR) Note PATIENT NAME: Kirt Reyna PATIENT Toribio Michaud MD documented in this encounter [facility] 06-19-2022 Nurse Note Status: Patient states there is no possibility she is at this time. documented in this encounter [facility] 06-19-2022 Miscellaneous Notes ORAL ANTI-CANCER AGENTS FOLLOW-UP PHONE CALL/VISIT Patient identified by name and date of . YES Patient is on cycle 1, week 1, day 7 of Capecitabine (Xeloda) for Colon / Rectal Cancer. SYMPTOM ASSESSMENT Headache: Yes - 1st day of treatment. Visual Changes: No Dizziness: Yes - 1st day of treatment. Resolved w/o intervention. Pt has h/o POTS. Do you have any periods of confusion? No Mood changes: No Mouth or throat pain: No Appetite: Pt reports her appetite fluctuates. Taste changes: No Nausea: Yes - after 1st dose of Xeloda. Takes Zofran before each dose. No nausea since. Vomiting: Yes - 1 episode after 1st dose. Heartburn: No. Weight gain/loss: No Episodes of palpitations/chest discomfort/pressure/pain No Shortness of breath: No Cough: No Diarrhea: 1 episode after 1st dose of Xeloda. Resolved w/o intervention. Constipation: Pt notes her bowels are now irregular in frequency. Reports her stools are more round and normal in appearance. C/o intermittent bowel cramping and increased gas. Treating irregularity w/ yogurt and high fiber foods. Has OTC constipation relief at home if needed. Bladder/Urinary Changes: None Pain: No=0 (pain 0 on a scale of 0-10). Fever: No Chills: No Cold sensitivity: No Numbness/weakness: Yes - H/o peripheral neuropathy. Not new. No worse since starting treatment. Edema: No Skin changes: Reports her fingers and soles of her feet appeared more red than normal. Applying lotion t/o the day. States she discussed this w/ already. Pt also reports that she is using her greyson bottle and sitz baths as recommended. Denies any perineal complaints. Itching: No Yellowing of skin or eyes: No Musculoskeletal/joint changes/issues No Bleeding issues: No - Reports her rectal bleeding has resolved since starting treatment. Do you need to take naps? Did not assess. Per prior phone encounter, pt's Xeloda dose was decreased to 2 tabs BID due to side effects. Pt confirms that she is tolerating the current dose. Does the patient need interventions or same day appointment:No ADDITIONAL FOLLOW UP: The next outreach call is due on: Advised she call w/ any questions or concerns and was scheduled NA The following lab tests are due: Labs due on Friday, 06/24. Verified patient is aware of next appointment in the cancer center: Yes. Verified patient verbalized how to correctly refill the oral agent prescription. Yes Does the patient have any financial difficulties affording this medication? No Patient verbalizes understanding of when to seek Medical Attention? YES Patient verbalizes understanding of after-hours and weekend phone number? YES Patient verbalized importance of medication compliance in taking the oral agent as prescribed. Patient instructed to call if unable to comply. Leandra Whitehead RN documented in this encounter [facility] 06-18-2022 Miscellaneous Notes Updated order base don new directions documented in this encounter [facility] 06-17-2022 Miscellaneous Notes Discussed this with Dr Calles on Friday. Pt stated on the phone that she didn't feel that she'd be able to keep down or tolerate 3 pills as that seemed like too high of a dose, so she's going to take the 2 pills BID instead. Magdalena Amaya RN Ok thank for letting me know - any specific issue she couldn't tolerate? Pt calls stating she's only taking two Xeloda pills BID instead of the three that were ordered. Pt states she wasn't able to tolerate 3, so she doing [address] Calles to be aware. Magdalena Amaya RN documented in this encounter [facility] 06-17-2022 Instructions Paco Bonds MD - 06/17/2022 2:00 PM EST Continue Xeloda on days of radiation - decrease dose to 1000 mg BID M-F Will be taking Xeloda daily on days of radiation only. Plan hydration on M, W, F of each week RTC with me on Friday06/24/2022 Labs every Friday - prior to starting Xeloda for each week. documented in this encounter [facility] 06-17-2022 Nurse Note Patient is taking Xeloda 4 pills daily, she was taking 6 but that was not working for her so she changed it. Radha Lunsford MA documented in this encounter [facility] 06-17-2022 History of Present illness Narrative Images from the original note were not included. NAME: Kirt Reyna CLINIC NO.: [id number] DATE OF SERVICE: June 17, 2022 (Vamshi) Some elements in this clinic note that are critical to medical decision making have been carefully reviewed and included from a prior clinic note dated: May 27, 2022 (Vamshi) Referring Provider: Phil Dougherty Additional Clinicians involved in Kirt Reyna's care: Sondra Liu, Vitaly Vaughn, Toribio Michaud DIAGNOSIS: Anal Ca. 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 Will need Chemo RT. Will await staging studies. PLAN: Continue Xeloda on days of radiation - decrease dose to 1000 mg BID M-F Will be taking Xeloda daily on days of radiation only. Plan hydration on M, W, F of each week RTC with me on Friday06/24/2022 Labs every Friday - prior to starting Xeloda for each week. HPI: CASE HISTORY: 05/21/2022 - MRI Rectum: Anorectal tumor invading sphincter and with extension through right lower rectal wall into the mesorectal fat - broad based abutment of iliococcygeus muscle. MR - T3 N0 05/21/2022 - CT CAP: 1.8 cm sclerotic focus in prox right humerus - likely benign, 0.4 cm non-calcified pulmonary nodules, otherwise negative for metastatic disease. 04/24/2022 - Sigmoidoscopy, Dr. Vaughn: Rectal exam revealed a larger rectal mass in the right posterior lateral area, taking up approximately a third of the circumference, measured approximately 3.5 cm. 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 Oncoprotein p16 diffusely (+) 02/20/2022 - Rectal mass identified - delay in subsequent workup due to patient's concern with debilitating POTS. 2019 - POTS diagnosed just as COVID-19 hit. Updated Visit, June 17, 2022: Doing well overall after reducing the dose of Xeloda to 1000 mg BID. Nausea a little better. Hands and feet are ok. Will continue IV hydration prophylactically. Updated Visit, May 27, 2022: Cherie is doing well and has no incontinence. We reviewed her imaging together and shared concerns of extent of involvement with sphincter pressing the need for adding chemotherapy. Xeloda will be daily on days of RT. Her biggest concern is regarding POTS. Mother Myrna is with her POTS closely associated with EDS and she has hypermobility. Also can be associated with platelet dysfunction but she has not demonstrated any bleeding tendencies. Consider Genetic counseling in future. Initial Visit, May 06, 2022: Kirt Reyna presents today Hematology and Oncology evaluation. She is a 52 year old female who has a history of significantly symptomatic POTS for which she is on Florinef, who has been diagnosed with Anal Ca presenting with intermittent rectal bleeding that became progressively more frequent. Her fiance Garrick Youssef was unable to accompany her but she has plenty of support at home She additionally reports: Molar in 1993, subsequent successful of her daughter in 1995 and son in 2003. She is not incontinent and pain is well managed. REVIEW OF SYSTEMS Per HPI and otherwise negative by full review of organ systems. ECOG PERFORMANCE STATUS: 0 PHYSICAL EXAMINATION: Vitals: BP 131/61 Pulse 79 Temp (Src) 97.5 (Temporal) Resp 18 Ht 5' 7.008 (1.70m) Wt 167 lb (75.8kg) SpO2 99% BMI 26.15 kg/(m^2). Body surface area is 1.89 meters squared. Exam limited to gross visualization where appropriate due to COVID-19. Gen.: This is an age-appropriate patient in no acute distress. Head: Appears atraumatic with no visible lesions. Eyes: Pupils equally round and reactive to light, extraocular muscles are intact. Neck: Supple. Mouth: Masked. Respiratory: Appears to be respiring comfortably. Neurologic: Nonfocal to gross visualization. Alert and oriented 3. Psychiatric: No evidence of inappropriate anxiety or depression. Skin: Visible areas of skin without rash, lesions, wounds or petechiae. ALLERGIES: ALLERGIES Allergen Reactions Penicillin G Unknown Sulfa (Sulfonamide * Unknown MEDICATIONS: multivitamin tablet Take 1 tablet by mouth once daily. acetaminophen/diphenhydramine (TYLENOL PM EXTRA STRENGTH ORAL) Take 500 mg by mouth as needed. ondansetron (ZOFRAN) 8 mg tablet Take 1 tablet by mouth every 8 hours as needed for nausea/vomiting. prochlorperazine (COMPAZINE) 10 mg tablet Take 1 tablet by mouth every 6 hours as needed. capecitabine (XELODA) 500 mg tablet Take 3 tablets (1,500 mg) by mouth twice daily. Only on days of radiation (M-F) each week (Patient taking differently: Take 825 mg/m2 by mouth twice daily. Only on days of radiation (M-F) each week. Takes 4 daily.) fludrocortisone (FLORINEF) 0.1 mg tablet TAKE 0.5 TABLET BY MOUTH TWICE A DAY iv contrast (will be provided with radiology test) MRI Rectum Inject, intravenously, once for 1 dose. No IV access, insert saline lock prior to the beginning of sedation, infusion, injection of imaging exam. Discontinue saline lock post exam. If Pt has a central line or IVAD, may access for administration according to line specific nursing protocol. Once exam is complete flush line and de-access according to line specific nursing protocol in the MR contrast administration guidelines link. (Patient not taking: No sig reported) enteric contrast (will be provided with radiology test) MRI RECTUM WO/W. Administer, As Directed One Time Only, via Oral, Rectal, both Oral and Rectal, Enteric Tube, Stoma or Indwelling Catheter, Enteric Contrast as designated per enteric contrast guidelines (Patient not taking: No sig reported) LABORATORY VALUES: WBC (k/uL) Date Value 06/14/2022 7.28 RBC (m/uL) Date Value 06/14/2022 4.70 Hemoglobin (g/dL) Date Value 06/14/2022 14.0 Hematocrit (%) Date Value 06/14/2022 41.7 MCV (fL) Date Value 06/14/2022 88.7 MCH (pg) Date Value 06/14/2022 29.8 MCHC (g/dL) Date Value 06/14/2022 33.6 RDW-CV (%) Date Value 06/14/2022 12.4 Platelet Count (k/uL) Date Value 06/14/2022 259 MPV (fL) Date Value 06/14/2022 10.6 Glucose (mg/dL) Date Value 06/14/2022 136 (H) BUN (mg/dL) Date Value 06/14/2022 16 Creatinine (mg/dL) Date Value 06/14/2022 0.68 Sodium (mmol/L) Date Value 06/14/2022 133 (L) Potassium (mmol/L) Date Value 06/14/2022 4.1 Chloride (mmol/L) Date Value 06/14/2022 99 CO2 (mmol/L) Date Value 06/14/2022 24 Protein, Total (g/dL) Date Value 06/14/2022 7.7 Albumin (g/dL) Date Value 06/14/2022 4.5 Calcium, Total (mg/dL) Date Value 06/14/2022 9.7 Alkaline Phosphatase (U/L) Date Value 06/14/2022 88 Bilirubin, Total (mg/dL) Date Value 06/14/2022 0.3 AST (U/L) Date Value 05/27/2022 22 ALT (U/L) Date Value 06/14/2022 16 DIAGNOSIS: (C21.0) Anal cancer (HCC) (primary encounter diagnosis) (G90.A) POTS (postural orthostatic tachycardia syndrome) PAST MEDICAL HISTORY Diagnosis Date Hiatal hernia POTS (postural orthostatic tachycardia syndrome) POTS (postural orthostatic tachycardia syndrome) 05/27/2022 Vertigo 1970 PAST SURGICAL HISTORY Procedure Laterality Date D&C, DIAG AND/OR THERAPEUTIC molar OVARIAN CYSTECTOMY UNI/BI Social History Tobacco Use Smoking status: Never Passive exposure: Never Smokeless tobacco: Never Substance Use Topics Alcohol use: No Drug use: No FAMILY HISTORY Problem Relation Age of Onset other (cysts [Other]) Mother other (parkinson [Other]) Father Diabetes Father I spent a total of 30 minutes on the date of the service which included preparing to see the patient, [id number] patient care, completing clinical documentation, performing a medically appropriate examination, counseling and educating the patient/family/caregiver, ordering medications, tests, or procedures, and independently interpreting results (not separately reported). Paco Bonds MD, CPE Hematology and Oncology Services Provided at: [place], [place] CC: Phil Liu documented in this encounter [facility] 06-13-2022 Miscellaneous Notes Call placed to pt. She forgot to go for test. She states she has not had intercourse in over a month and has not had a period for several months. She does not feel this is necessary. I spoke to DR Michaud and notified her that this is protocol for patients that are still having menstrual periods. We can proceed if she wishes to not do the test and can attest that there is no possibility of . Patient wishes to not do test and states that there is absolutely no possibility of at this time. Eliza Ceballos RN Spoke to pt and she will go to [facility] for urine test. Order was faxed. She was also notified she is ok to start her chemo tomorrow and does not need additional labs. I also made her aware that we are not planning to do DPD enzyme testing at this time. She is aware of new start time and will be here tomorrow at 10:15. Eliza Ceballos RN Signed - results should be available/negative prior to starting XRT. Thanks! NESHA Please sign pended order for Urine Test. Eliza Ceballos RN documented in this encounter [facility] 06-03-2022 History of Present illness Narrative ORAL ANTI-CANCER AGENTS EDUCATION patient here today for oral medication education for Capecitabine (Xeloda) for Anal Carcinoma READINESS TO LEARN Cognitive Ability: Alert and oriented Motivation to Learn: Interested Family Support: Unable to assess - Family not present Instruction Provided to: Patient Patient learns best by: Multiple Methods Factors affecting learning: None Physical limitation affecting learning: None HUMPHREY ASSESSMENT: 1.) Verified that patient knows that the oral agents are for cancer and are taken by mouth. Yes 2.) Medication reconciliation completed during visit. Yes 3.) Patient is able to swallow pills. Yes 4.) Patient is able to read the drug label/information. Yes 5.) Patient is able to open the medication bottles and packages. Yes 6.) Has patient taken other pills for cancer? No 7.) Is patient experiencing any symptoms that would affect their ability to keep down pills, for example nausea or vomiting? No 8.) Verified that patient understands prescription delivery, benefit investigation and refill process. Yes PATIENT EDUCATION: 1.) Verified that patient attended individualized instruction on chemotherapy taught by a nurse. Yes 2.) Verified that patient received Chemotherapy Safety in the Home handout, ChemoCare Medication Information handout: Capecitabine, Specialty Pharmacy Information : [facility], and Specialty Pharmacy phone numbers: Yes DRUG-SPECIFIC EDUCATION: 1.) Verified that patient knows the drug name. Yes 2.) Verified patient understands the dose and schedule of oral chemo agent: With water, w/ a meal Yes 3.) Verified patient knows what to do if a medication dose is missed. Yes 4.) Verified patient understands where to store the drug. Yes 5.) Verified patient understands potential side effects and how to manage them. Yes Nausea , Vomiting, Constipation, Diarrhea, Fever / Chills / Risk for Neutropenic Fever, Headache, Neutropenia, Thrombocytopenia, Anemia, Mucositis, Fatigue, Hand-foot Syndrome, Peripheral Neuropathy, Myalgia, Arthalgia, Electrolyte Disturbances, and Fluid Retention 6.)Verified that patient understands handling precautions of oral chemo agent. Yes 7.) Verified that patient understands when and whom to call with questions. Yes 8.) Verified that patient understands where and how to return drug. Yes Pt verbalizes understanding that she is only to take the above medication on days of radiation. EVALUATE: Patient was able to demonstrate an understanding of all the above education using the teach-back method. Yes Patient instructed to call us with any questions, concerns, and/or unresolved symptoms. Will continue to follow up with patient and provide reinforcement of teaching topics as needed. Total time spent with patient: 35 minutes Total time spent on encounter: 5 minutes Leandra Whitehead RN documented in this encounter [facility] 06-03-2022 History of Present illness Narrative Oncology Nutrition Therapy Initial Assessment RECOMMENDED MALNUTRITION DIAGNOSIS: NO MALNUTRITION IDENTIFIED Nutrition Diagnosis: Increased protein and energy needs related to hypermetabolic disease process as evidenced by need for weight maintenance and preservation of muscle mass. Nutrition Intervention: -encouraged weight maintenance -continue current meal structure of 3 meals/day + snacks prn -include lean protein source at each meal/snack -discussed potential nutrition related side effects -encouraged good hydration -discussed supplementation -continue Boost High Protein 1x per day -provided contact information for any further questions/concerns Nutrition Monitoring & Evaluation: -PO Intake -Wt status -BM's -Supplement tolerance/acceptance -Biochemical Markers -Plan of care Patient's symptoms are: None Pt presents for nutrition counseling for anal cancer. Pt is currently being treated with RT, Xeloda. Pt denies any chewing/swallowing issues, denies current N/V/D/C. Pt's PMHx is significant for POTS. Appetite appears to be good, Intakes are good. Pt currently consumes 3 meals per day. Patient does report consuming high sodium diet due to hx of POTS. She does admit to consumption of quite a bit of processed foods in attempts to consume enough sodium. Briefly discussed with pt benefit of reducing processed foods and consuming more lean proteins and adding salt to food rather than consuming processed meats. Reviewed interventions above and problem solved ways to meet recommendations. Pt verbalized understanding. Thank you for allowing me to participate in the care of this pt. Readiness to Learn: Cognitive ability: Alert and oriented Motivation to learn: Interested Family support: Unable to assess - Family not present Instruction provided to: Patient Patient learns best by: Multiple Methods Factors affecting learning: None Physical limitations affecting learning: None Educational materials provided: Creative Eating during Illness and Recovery Anthropometrics: Height: Last 1 Encounter Ht Readings: Date: Ht: 05/27/2022 170.2 cm (5' 7.01 ) Current weight: Last 1 Encounter Wt Readings: Date: Wt: 05/27/2022 77.4 kg (170 lb 9.6 oz) Estimated body mass index is 26.71 kg/m as calculated from the following: Height as of 05/27/22: 170.2 cm (5' 7.01 ). Weight as of 05/27/22: 77.4 kg (170 lb 9.6 oz). Resting Metabolic Rate: 1415 Weight Loss: n/a Dosing Weight: 77.4 kg Estimated kilocalorie needs: 1935 kilocalories determined by 25 kcal/kg Estimated protein needs: 77-101 grams determined by 1.0-1.3 g/kg Dosing weight Estimated fluid needs: ~5266-1682 milliliters based on 1 mL per kcal (unless otherwise noted) Nutrition Focused Physical Exam: Unable to perform exam due to potential for patient discomfort (physical/emotional), will re-attempt during reassessment. Potential Signs of Inflammation: chronic condition Allergies: Penicillin G and Sulfa (Sulfonamide Antibiotics) Medications: Current Outpatient Medications Medication Sig Dispense Refill ondansetron (ZOFRAN) 8 mg tablet Take 1 tablet by mouth every 8 hours as needed for nausea/vomiting. (Patient not taking: Reported on 05/27/2022) 90 tablet 1 prochlorperazine (COMPAZINE) 10 mg tablet Take 1 tablet by mouth every 6 hours as needed. (Patient not taking: Reported on 05/27/2022) 100 tablet 1 capecitabine (XELODA) 500 mg tablet Take 3 tablets (1,500 mg) by mouth twice daily. Only on days of radiation (M-F) each week 30 tablet 5 fludrocortisone (FLORINEF) 0.1 mg tablet TAKE 0.5 TABLET BY MOUTH TWICE A DAY iv contrast (will be provided with radiology test) MRI Rectum Inject, intravenously, once for 1 dose. No IV access, insert saline lock prior to the beginning of sedation, infusion, injection of imaging exam. Discontinue saline lock post exam. If Pt has a central line or IVAD, may access for administration according to line specific nursing protocol. Once exam is complete flush line and de-access according to line specific nursing protocol in the MR contrast administration guidelines link. (Patient not taking: Reported on 05/27/2022) 1 Each 0 enteric contrast (will be provided with radiology test) MRI RECTUM WO/W. Administer, As Directed One Time Only, via Oral, Rectal, both Oral and Rectal, Enteric Tube, Stoma or Indwelling Catheter, Enteric Contrast as designated per enteric contrast guidelines (Patient not taking: Reported on 05/27/2022) 1 Each 0 No current facility-administered medications for this visit. Need for Follow up: will continue to follow Referred/Supervised by: Andrei/Stevan GARCIA Billing Type: Initial Assess/15 min 2 units Time Spent with Patient: 30 minutes Signed by: Carmina Forbes MS, BARTOLOMEN, LD documented in this encounter [facility] 05-30-2022 History of Present illness Narrative Oncology Nutrition Therapy Initial Assessment This visit was performed as a telehealth visit due to the COVID-19 pandemic as an effort to protect patients and minimize exposure. Consent from patient received to conduct visit virtually/telehealth. It required patient-provider interaction for the medical decision making as documented below. Called patient for scheduled phone appointment. Patient states she is currently at work and unable to talk on the phone, but prefers to meet in person. Patient added to schedule to see on FridayJune 03 after chemo education. Pt verbalized understanding. Signed by: Carmina Forbes MS, BARTOLOMEN, LD documented in this encounter [facility] 05-27-2022 Nurse Note Status: Patient states there is no possibility she is at this time. documented in this encounter [facility] 05-27-2022 Instructions Paco Bonds MD - 05/27/2022 11:51 AM EST Start Xeloda on June 13, 2022 with start of radiation Will be taking Xeloda daily on days of radiation only. Plan hydration on M,T,F of each week (start Jun 14) RTC with me on Friday06/17/2022 Labs every Friday Needs educations Labs today please - for baseline documented in this encounter [facility] 05-27-2022 History of Present illness Narrative Radiation Oncology - Follow Up Note PATIENT NAME: Kirt Reyna PATIENT DIAGNOSIS/PATIENT IDENTIFICATION: Ms. Reyna is a 52-year-old woman diagnosed with squamous cell carcinoma of the anal canal/distal rectum status post sigmoidoscopy and biopsy on 04/24/[address] Vaughn. She then met with Dr. Dougherty who has ordered staging work-up with MRI of the rectum/pelvis and CT abdomen/chest which is pending. She met my colleague Dr. Bonds to discuss her systemic therapy options and was referred to the radiation medicine clinic to have a discussion regarding the role of radiation therapy in the definitive treatment of her anal cancer. Ms. Reyna returns to clinic today for follow-up and simulation as previously discussed during consultation on 05/06/2022. In the interim, she completed her staging work-up with MRI of the rectum on 05/21/2022 which described a 5.2 cm anorectal mass invading the sphincter and extending through the right lower rectal wall and into the mesorectal fat with broad-based abutment of the iliococcygeus muscle and a few nonspecific pelvic lymph nodes. CT imaging of the chest and abdomen from the same day showed no definite evidence of distant disease. ([id number]) We again briefly reviewed the rationale, logistics, and toxicity of radiation therapy in this definitive setting. After all of her questions were answered, informed consent was obtained. She will proceed to CT simulation following this visit to begin treatment planning and I anticipate starting radiation shortly. Thank you for allowing us to participate in the care of this patient. RADIOLOGIC DATA: MRI Rectum/Pelvis (05/21/2022) IMPRESSION: ANORECTAL TUMOR (UP TO 5.2 CM) INVADES THE SPHINCTER AND EXTENDS THROUGH THE RIGHT LOWER RECTAL WALL INTO THE MESORECTAL FAT WITH BROAD-BASED ABUTMENT OF THE ILIOCOCCYGEUS MUSCLE. NO INVASION OF ADJACENT ORGANS. FEW NONSPECIFIC PELVIC LYMPH NODES. mr T3 N0 CT Abdomen (05/21/2022) IMPRESSION: 1. No evidence of metastatic disease within the abdomen. Please note, the pelvis was not imaged on this study. CT Chest (05/21/2022) IMPRESSION: 1. Nonspecific noncalcified pulmonary nodules measuring up to 0.4 cm. Continued attention on subsequent studies is suggested. 2. A 1.8 cm sclerotic focus within the proximal right humerus is indeterminate, but favored to represent a benign entity such as an enchondroma. Consideration could be given to further assessment with nuclear medicine bone scan and/or right shoulder radiographs. 3. No lymphadenopathy. Signed by: Toribio Michaud MD I spent a total of 15 minutes on the date of the service which included preparing to see the patient, [id number] patient care, and counseling and educating the patient/family/caregiver. This document has been created with the use of voice recognition technology. It may contain inaccuracies, misspellings, inaccurate syntax or inappropriate word context that are a result of the inadequacies/shortcomings of said technology/software. documented in this encounter [facility] 05-27-2022 History of Present illness Narrative Images from the original note were not included. NAME: Kirt Reyna [facility] NO.: [id number] DATE OF SERVICE: May 27, 2022 ([email or web address]) Some elements in this clinic note that are critical to medical decision making have been carefully reviewed and included from a prior clinic note dated: May 06, 2022 (Vamshi) Referring Provider: Phil Dougherty Additional Clinicians involved in Kirt Reyna's care: Sondra Liu, Vitaly Vaughn, Toribio Michaud DIAGNOSIS: Anal Ca. 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 Will need Chemo RT. Will await staging studies. PLAN: Start Xeloda on June 13, 2022 with start of radiation Will be taking Xeloda daily on days of radiation only. Plan hydration on M,T,F of each week (start Jun 14) RTC with me on Friday06/17/2022 Labs every Friday Needs educations Labs today please - for baseline HPI: CASE HISTORY: 05/21/2022 - MRI Rectum: Anorectal tumor invading sphincter and with extension through right lower rectal wall into the mesorectal fat - broad based abutment of iliococcygeus muscle. MR - T3 N0 05/21/2022 - CT CAP: 1.8 cm sclerotic focus in prox right humerus - likely benign, 0.4 cm non-calcified pulmonary nodules, otherwise negative for metastatic disease. 04/24/2022 - Sigmoidoscopy, Dr. Vaughn: Rectal exam revealed a larger rectal mass in the right posterior lateral area, taking up approximately a third of the circumference, measured approximately 3.5 cm. 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 Oncoprotein p16 diffusely (+) 02/20/2022 - Rectal mass identified - delay in subsequent workup due to patient's concern with debilitating POTS. 2019 - POTS diagnosed just as COVID-19 hit. Updated Visit, May 27, 2022: Cherie is doing well and has no incontinence. We reviewed her imaging together and shared concerns of extent of involvement with sphincter pressing the need for adding chemotherapy. Xeloda will be daily on days of RT. Her biggest concern is regarding POTS. Mother Myrna is with her POTS closely associated with EDS and she has hypermobility. Also can be associated with platelet dysfunction but she has not demonstrated any bleeding tendencies. Consider Genetic counseling in future. Initial Visit, May 06, 2022: Kirt Reyna presents today Hematology and Oncology evaluation. She is a 52 year old female who has a history of significantly symptomatic POTS for which she is on Florinef, who has been diagnosed with Anal Ca presenting with intermittent rectal bleeding that became progressively more frequent. Her fiance Garrick Youssef was unable to accompany her but she has plenty of support at home She additionally reports: Molar in 1993, subsequent successful of her daughter in 1995 and son in 2003. She is not incontinent and pain is well managed. REVIEW OF SYSTEMS Per HPI and otherwise negative by full review of organ systems. ECOG PERFORMANCE STATUS: 0 PHYSICAL EXAMINATION: Vitals: BP 150/72 Pulse 90 Temp (Src) 97.2 (Temporal) Resp 16 Ht 5' 7.008 (1.70m) Wt 170 lb 9.6 oz (77.4kg) SpO2 98% BMI 26.71 kg/(m^2). Body surface area is 1.91 meters squared. Exam limited to gross visualization where appropriate due to COVID-19. Gen.: This is an age-appropriate patient in no acute distress. Head: Appears atraumatic with no visible lesions. Eyes: Pupils equally round and reactive to light, extraocular muscles are intact. Neck: Supple. Mouth: Masked. Respiratory: Appears to be respiring comfortably. Neurologic: Nonfocal to gross visualization. Alert and oriented 3. Psychiatric: No evidence of inappropriate anxiety or depression. Skin: Visible areas of skin without rash, lesions, wounds or petechiae. ALLERGIES: ALLERGIES Allergen Reactions Penicillin G Unknown Sulfa (Sulfonamide * Unknown MEDICATIONS: ondansetron (ZOFRAN) 8 mg tablet Take 1 tablet by mouth every 8 hours as needed for nausea/vomiting. prochlorperazine (COMPAZINE) 10 mg tablet Take 1 tablet by mouth every 6 hours as needed. capecitabine (XELODA) 500 mg tablet Take 3 tablets (1,500 mg) by mouth twice daily. Only on days of radiation (M-F) each week fludrocortisone (FLORINEF) 0.1 mg tablet TAKE 0.5 TABLET BY MOUTH TWICE A DAY iv contrast (will be provided with radiology test) MRI Rectum Inject, intravenously, once for 1 dose. No IV access, insert saline lock prior to the beginning of sedation, infusion, injection of imaging exam. Discontinue saline lock post exam. If Pt has a central line or IVAD, may access for administration according to line specific nursing protocol. Once exam is complete flush line and de-access according to line specific nursing protocol in the MR contrast administration guidelines link. (Patient not taking: Reported on 05/06/2022) enteric contrast (will be provided with radiology test) MRI RECTUM WO/W. Administer, As Directed One Time Only, via Oral, Rectal, both Oral and Rectal, Enteric Tube, Stoma or Indwelling Catheter, Enteric Contrast as designated per enteric contrast guidelines (Patient not taking: Reported on 05/06/2022) LABORATORY VALUES: WBC (k/uL) Date Value 05/27/2022 8.22 RBC (m/uL) Date Value 05/27/2022 4.54 Hemoglobin (g/dL) Date Value 05/27/2022 13.7 Hematocrit (%) Date Value 05/27/2022 40.8 MCV (fL) Date Value 05/27/2022 89.9 MCH (pg) Date Value 05/27/2022 30.2 MCHC (g/dL) Date Value 05/27/2022 33.6 RDW-CV (%) Date Value 05/27/2022 12.8 Platelet Count (k/uL) Date Value 05/27/2022 328 MPV (fL) Date Value 05/27/2022 9.9 Glucose (mg/dL) Date Value 05/27/2022 128 (H) BUN (mg/dL) Date Value 05/27/2022 16 Creatinine (mg/dL) Date Value 05/27/2022 0.70 Sodium (mmol/L) Date Value 05/27/2022 136 Potassium (mmol/L) Date Value 05/27/2022 3.8 Chloride (mmol/L) Date Value 05/27/2022 99 CO2 (mmol/L) Date Value 05/27/2022 29 Protein, Total (g/dL) Date Value 05/27/2022 7.7 Albumin (g/dL) Date Value 05/27/2022 4.6 Calcium, Total (mg/dL) Date Value 05/27/2022 9.1 Alkaline Phosphatase (U/L) Date Value 05/27/2022 87 Bilirubin, Total (mg/dL) Date Value 05/27/2022 0.2 AST (U/L) Date Value 05/27/2022 22 ALT (U/L) Date Value 05/27/2022 14 DIAGNOSIS: (C21.0) Anal cancer (HCC) (primary encounter diagnosis) Plan: CBC + DIFF, COMP METABOLIC PANEL (G90.A) POTS (postural orthostatic tachycardia syndrome) PAST MEDICAL HISTORY Diagnosis Date Hiatal hernia POTS (postural orthostatic tachycardia syndrome) Vertigo 1969 PAST SURGICAL HISTORY Procedure Laterality Date D&C, DIAG AND/OR THERAPEUTIC molar OVARIAN CYSTECTOMY UNI/BI Social History Tobacco Use Smoking status: Never Passive exposure: Never Smokeless tobacco: Never Substance Use Topics Alcohol use: No Drug use: No FAMILY HISTORY Problem Relation Age of Onset other (cysts [Other]) Mother other (parkinson [Other]) Father Diabetes Father I spent a total of 35 minutes on the date of the service which included preparing to see the patient, [id number] patient care, completing clinical documentation, obtaining and/or reviewing separately obtained history, performing a medically appropriate examination, counseling and educating the patient/family/caregiver, ordering medications, tests, or procedures, communicating with other HCPs (not separately reported), and independently interpreting results (not separately reported). Paco Bonds MD, CPE Hematology and Oncology Services Provided at: [place], [place] CC: Phil Liu documented in this encounter [facility] 05-23-2022 Miscellaneous Notes The following approved medication requests have been transmitted electronically. Requested Prescriptions Signed Prescriptions Disp Refills ondansetron (ZOFRAN) 8 mg tablet 90 tablet 1 Sig: Take 1 tablet by mouth every 8 hours as needed for nausea/vomiting. Authorizing Provider: GERARDO MCKINNON prochlorperazine (COMPAZINE) 10 mg tablet 100 tablet 1 Sig: Take 1 tablet by mouth every 6 hours as needed. Authorizing Provider: GERARDO MCKINNON APRN.[employer] BREEDER Pt to start Xeloda w/ XRT. Scripts for antiemetics pended. Leandra Whitehead RN documented in this encounter [facility] 05-17-2022 Miscellaneous Notes Whatever's easy - just so she doesn't take it weekly until labs are cleared. How about 1 week for the 1st week, then 4 and then the remaining days (may not be a full 6 weeks of RT - - usually just 28 days.) The capecitabine order is covered at [facility] with no co pay, did you only want her to get the capecitabine week to week? She could get a months worth then another 2 weeks after that? Please advise Lynn Cruz documented in this encounter [facility] 05-06-2022 History of Present illness Narrative Images from the original note were not included. Radiation Oncology - New Patient/Consult Note PATIENT NAME: Kirt Reyna PATIENT Signed: Toribio Michaud MD I spent a total of 60 minutes on the date of the service which included preparing to see the patient, [id number] patient care, and counseling and educating the patient/family/caregiver. This document has been created with the use of voice recognition technology. It may contain inaccuracies, misspellings, inaccurate syntax or inappropriate word context that are a result of the inadequacies/shortcomings of said technology/software. documented in this encounter [facility] 05-06-2022 History of Present illness Narrative This encounter was opened in error. documented in this encounter [facility] 05-06-2022 Instructions Paco Bonds MD - 05/06/2022 11:26 AM EDT Please schedule CT's here Please reschedule MRI to [facility] facility [facility] RTC after scans Repeat labs on return documented in this encounter [facility] 05-06-2022 Nurse Note Radiation Therapy - Patient Education Note PATIENT NAME: Kirt Reyna PATIENT May 06, 2022 [facility] FACILITY/LOCATION: [facility] READINESS TO LEARN Cognitive Ability: Alert and oriented Motivation to learn: Eager Family Support: High - Very involved in pt care Instruction provide to: Patient and Significant Other Patient learns best by: Written Instruction - Hand-outs Verbal Instruction Multiple Methods Factors effecting learning: None Physical limitations effecting learning: None LEARNING RESPONSE Diagnosis: Pt simulated today for radiation therapy to pelvis. Education Topic/Teaching Points: Radiation therapy, Side effects, and OTV: Method of instruction: Written instruction - handouts Verbal instruction Patient /Family response: Patient and family verbalized understanding of radiation treatments, side effects, OTV, and transportation. Follow-up plan: Recommend - Recommend continued instruction and follow up as directed Supplemental material: Informational handouts on Bladder function, Diarrhea, Fatigue, Pelvic handout, Skin changes, and greyson bottle and patient education binder. Referral (recommendation): None, Pt denied need for social work, van service, and scientific software developer. Was approved? No Signed by: Heidi Horta LPN documented in this encounter [facility] 05-06-2022 History of Present illness Narrative Images from the original note were not included. NAME: Kirt Reyna [facility] NO.: [id number] DATE OF SERVICE: May 06, 2022 Referring Provider: Phil Dougherty Consultation requested by Dr. Dougherty for an opinion regarding Ms. Kirt Reyna, and my final recommendations will be communicated back to the requesting physician by way of shared medical record or letter via [place] mail. Additional Clinicians involved in Kirt Reyna's care: Sondra Liu, Vitaly Vaughn, Toribio Michaud DIAGNOSIS: Anal Ca. 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 Will need Chemo RT. Will await staging studies. PLAN: Please schedule CT's here Please reschedule MRI to [facility] facility [facility] RTC after scans Repeat labs on return HPI: CASE HISTORY: 04/24/2022 - Sigmoidoscopy, Dr. Vaughn: Rectal exam revealed a larger rectal mass in the right posterior lateral area, taking up approximately a third of the circumference, measured approximately 3.5 cm. 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 Oncoprotein p16 diffusely (+) 02/20/2022 - Rectal mass identified - delay in subsequent workup due to patient's concern with debilitating POTS. Initial Visit, May 06, 2022: Kirt Reyna presents today Hematology and Oncology evaluation. She is a 52 year old female who has a history of significantly symptomatic POTS for which she is on Florinef, who has been diagnosed with Anal Ca presenting with intermittent rectal bleeding that became progressively more frequent. Her fiance Garrick Youssef was unable to accompany her but she has plenty of support at home She additionally reports: Molar in 1993, subsequent successful of her daughter in 1995 and son in 2003. She is not incontinent and pain is well managed. REVIEW OF SYSTEMS Per HPI and otherwise negative by full review of organ systems. ECOG PERFORMANCE STATUS: 0 PHYSICAL EXAMINATION: Vitals: BP 126/65 Pulse 82 Temp 98.1 Resp 16 Wt 169 lb 12.1 oz (77.0kg) SpO2 100% Body surface area is 1.91 meters squared. Exam limited to gross visualization where appropriate due to COVID-19. Gen.: This is an age-appropriate patient in no acute distress. Head: Appears atraumatic with no visible lesions. Eyes: Pupils equally round and reactive to light, extraocular muscles are intact. Neck: Supple. Mouth: Masked. Respiratory: Appears to be respiring comfortably. Neurologic: Nonfocal to gross visualization. Alert and oriented 3. Psychiatric: No evidence of inappropriate anxiety or depression. Skin: Visible areas of skin without rash, lesions, wounds or petechiae. ALLERGIES: ALLERGIES Allergen Reactions Penicillin G Unknown Sulfa (Sulfonamide * Unknown MEDICATIONS: fludrocortisone (FLORINEF) 0.1 mg tablet TAKE 0.5 TABLET BY MOUTH TWICE A DAY iv contrast (will be provided with radiology test) MRI Rectum Inject, intravenously, once for 1 dose. No IV access, insert saline lock prior to the beginning of sedation, infusion, injection of imaging exam. Discontinue saline lock post exam. If Pt has a central line or IVAD, may access for administration according to line specific nursing protocol. Once exam is complete flush line and de-access according to line specific nursing protocol in the MR contrast administration guidelines link. (Patient not taking: Reported on 05/06/2022) enteric contrast (will be provided with radiology test) MRI RECTUM WO/W. Administer, As Directed One Time Only, via Oral, Rectal, both Oral and Rectal, Enteric Tube, Stoma or Indwelling Catheter, Enteric Contrast as designated per enteric contrast guidelines (Patient not taking: Reported on 05/06/2022) LABORATORY VALUES: WBC (k/uL) Date Value 05/02/2022 6.78 RBC (m/uL) Date Value 05/02/2022 4.63 Hemoglobin (g/dL) Date Value 05/02/2022 13.5 Hematocrit (%) Date Value 05/02/2022 43.0 MCV (fL) Date Value 05/02/2022 92.9 MCH (pg) Date Value 05/02/2022 29.2 MCHC (g/dL) Date Value 05/02/2022 31.4 RDW-CV (%) Date Value 05/02/2022 12.7 Platelet Count (k/uL) Date Value 05/02/2022 305 MPV (fL) Date Value 05/02/2022 10.5 Glucose (mg/dL) Date Value 05/02/2022 116 (H) BUN (mg/dL) Date Value 05/02/2022 16 Creatinine (mg/dL) Date Value 05/02/2022 0.75 Sodium (mmol/L) Date Value 05/02/2022 138 Potassium (mmol/L) Date Value 05/02/2022 4.5 Chloride (mmol/L) Date Value 05/02/2022 101 CO2 (mmol/L) Date Value 05/02/2022 28 Protein, Total (g/dL) Date Value 05/02/2022 8.0 Albumin (g/dL) Date Value 05/02/2022 4.7 Calcium, Total (mg/dL) Date Value 05/02/2022 9.5 Alkaline Phosphatase (U/L) Date Value 05/02/2022 88 Bilirubin, Total (mg/dL) Date Value 05/02/2022 0.3 AST (U/L) Date Value 05/02/2022 20 ALT (U/L) Date Value 05/02/2022 17 DIAGNOSIS: (C21.0) Anal cancer (HCC) Plan: CONSULT TO ONCOLOGY PAST MEDICAL HISTORY Diagnosis Date Hiatal hernia POTS (postural orthostatic tachycardia syndrome) Vertigo 1969 PAST SURGICAL HISTORY Procedure Laterality Date D&C, DIAG AND/OR THERAPEUTIC molar OVARIAN CYSTECTOMY UNI/BI Social History Tobacco Use Smoking status: Never Passive exposure: Never Smokeless tobacco: Never Substance Use Topics Alcohol use: No Drug use: No FAMILY HISTORY Problem Relation Age of Onset other (cysts [Other]) Mother other (parkinson [Other]) Father Diabetes Father I spent a total of 65 minutes on the date of the service which included preparing to see the patient, [id number] patient care, completing clinical documentation, obtaining and/or reviewing separately obtained history, performing a medically appropriate examination, counseling and educating the patient/family/caregiver, ordering medications, tests, or procedures, communicating with other HCPs (not separately reported), and independently interpreting results (not separately reported). Paco Bonds MD, CPE Hematology and Oncology Services Provided at: [place], [place] CC: Phil Liu documented in this encounter [facility] 05-06-2022 Nurse Note Patient is concerned about getting Chemo due to having POTS, she spoke to Dr. Michaud and another Physician and they do not think she needs Chemo but wants to discuss this with you. Radha Lunsford MA documented in this encounter [facility] 05-02-2022 Nurse Note What is the reason for your visit today? New patient consult for rectal mass Who is your referring physician? Dr Liu Are you having poor oral intake? NO Have you had unintentional weight loss of 15 lbs/7 Kg in the last 3-6 months? NO Bowels: soft / with bleeding with stools and itching Wound: none Temperature: No Drains: No documented in this encounter [facility] 05-02-2022 History of Present illness Narrative COLORECTAL SURGERY May 02, 2022 Kirt Reyna 52 year old This consult was requested by Dr. Liu and my final recommendations will be communicated to the requesting health care provider by way of the shared medical record for internal providers or letter via the [employer] for external providers. Chief Complaint: rectal mass History of Present Illness: Kirt Reyna is a 52 year old female presents today for evaluation of rectal mass. Sigmoidoscopy 04/24/22 - Dr. Vaughn Rectal exam revealed a larger rectal mass in the right posterior lateral area, taking up approximately a third of the circumference, measured approximately 3.5 cm. The scope was able to be advanced to approximately 20 cm. No other lesions were noted Pathology: RECTAL MASS, BIOPSY: - INVASIVE POORLY DIFFERENTIATED SQUAMOUS CELL CARCINOMA 52-year-old female underwent colonoscopy for bleeding and found to have a rectal mass that was biopsy-proven squamous cell carcinoma PAST MEDICAL HISTORY Diagnosis Date Hiatal hernia Vertigo 1969 PAST SURGICAL HISTORY Procedure Laterality Date OVARIAN CYSTECTOMY UNI/BI No current outpatient medications on file. No current facility-administered medications for this visit. ALLERGIES Allergen Reactions Penicillin G Unknown Sulfa (Sulfonamide * Unknown FAMILY HISTORY Problem Relation Age of Onset other (cysts [Other]) Mother other (parkinson [Other]) Father Diabetes Father Social History Tobacco Use Smoking status: Never Substance Use Topics Alcohol use: No Drug use: No Physical Exam: BP 143/78 (BP Site: Left Arm, BP Position: Sitting, BP Cuff Size: Regular Adult) Pulse 89 Wt 74.8 kg (165 lb) SpO2 100% BMI 25.84 kg/m General Appearance: Well appearing, alert, in no acute distress, well-hydrated, well nourished. Abdomen: no inguinal lymphadenopathy Anorectal: External exam reveals no lesoins. Digital rectal exam reveals left sided and posterior anorectal mass Bankruptcy Legal Assistant present: Yes, Whitley Pina Anoscopy: The patient was placed in chest-knee position. After digital exam with a lubricated finger, the scope was easily inserted. Posterior left sided anorectal mass noted. Otherwise normal mucosa was noted. Anoscopy completed. Assessment Assessment and Plan: Kirt Reyna is a 52 year old female with new diagnosis of anal cancer. I will refer her to radiation oncology and medical oncology. We also will fully stage her with an MRI rectum as well as CT scan of the chest and abdomen. Likely she will need chemoradiation but we will need to obtain the staging first. Further plan to follow staging Medical Decision Making: Data Reviewed: Tests & Documents Reviewed/ordered: Review of prior notes from Dr. Vaughn Review of prior operative reports Review of Pathology Review of Procedures / Tests: Colonoscopy Additional testing or imaging to be ordered: CBC, CMP, CT Chest, CT Abdomen, MRI Rectum Risk of morbidity, mortality and/or complications of treatment plan: high Phil Dougherty MD Colorectal Surgery documented in this encounter [facility] 04-24-2022 Note OPERATIVE NOTE OPERATION DATE: 04/24/2022 PREOPERATIVE DIAGNOSIS: Rectal bleeding, rectal pain, rectal mass. POSTOPERATIVE DIAGNOSIS: Rectal bleeding, rectal pain, rectal mass. PROCEDURE: Flexible sigmoidoscopy to 20 cm with biopsies of rectal mass. SURGEON: Vitaly Vaughn M.D. ANESTHESIA: Monitored anesthesia care. ESTIMATED BLOOD LOSS: Less than 3 mL. INDICATIONS AND CONSENT: Patient is a 52-year-old female initially seen two months ago for rectal bleeding and pain and possible hemorrhoid. On exam, she was found to have a small rectal mass just inside the anal verge. She was sent for colonoscopy for evaluation and biopsy, which she cancelled and we were unable to get a hold of her for several months, despite multiple attempts and letters being sent. Recently, we were able to get a hold of her and she refused to undergo colonoscopy, but would consent to sigmoidoscopy. Indications, risks, benefits, alternatives of proceeding were explained extensively to the patient, including the risks of bleeding, colon perforation or anesthetic complications. All of her questions were answered. Informed consent was obtained. PROCEDURE: Patient brought to the procedure room, placed in the left lateral decubitus position. Monitored anesthesia care was provided. Rectal exam revealed a larger rectal mass in the right posterior lateral area, taking up approximately a third of the circumference, measured approximately 3.5 cm. There was formed stool in the rectal vault. The scope was able to be advanced to approximately 20 cm. No other lesions were noted. Multiple biopsies of this mass were obtained with good hemostasis. The scope was then withdrawn. Patient tolerated procedure well, was sent to recovery room in good condition. CC: Sondra Liu M.D. [facility] 02-20-2022 Note Chief Complaint consultation for hemorroids HPI Staff 52 year old female presents on consultation from Dr. Liu for intermittent rectal bleeding. Reports one month history of blood streaking stool. Denies blood with wiping or blood in toilet. Reports intermittent burning rectal pain with bowel movement. Denies change in bowel habits. Denies abdominal pain, nausea or vomiting. No unexplained weight loss. No previous colonoscopy. No known family history of colon cancer or IBD. History of Present Illness 52 yo female referred for intermittent rectal bleeding over past several months; reports blood on outside of stools, occasionally with wiping, not in toilet bowel, no change in bms or decreased caliber of stools; feels pressure, possible hemorrhoid on inside of rectum, no prolapse; some burning rectal pain after bm; no N/V; no abdominal pain; no asa or NSAID use, no SBE prophylaxis; no previous colonoscopy; abdominal operations significant for ovarian cystectomy; no fmhx of GI malignancy or IBD. Review of Systems PHQ Score Initial Depression Screen Score: 0 ROS - Provider Constitutional: no fever, no sweats, no weight loss. Eyes: no glasses, no blurred vision, no visual loss. ENMT: no dentures, no hoarseness, no swallowing difficulties, no hearing loss, no ear infection(s), no nose bleeds. Cardiovascular: normal blood pressure, no chest pain, regular heartbeat, no heart murmur. Respiratory: no shortness of breath, no cough, no asthma, no wheezing. Gastrointestinal: no nausea, no vomiting, no diarrhea, no constipation, yes blood in stool, no change in bowel habits, no abdominal pain, no hepatitis. Genitourinary: no kidney stones, no urine infection, no dysuria. Musculoskeletal: no pain, no weakness. Skin: no changing moles, no rash, no skin lumps. Neurologic: no seizures, no epilepsy, no headache. Psychiatric: no emotional or psychiatric problem. Heme/Lymph: no bleeding problems, no anemia, no blood clots, no transfusions. Allergy/Immunologic: no swollen lymph nodes/glands, no IV drug abuse. Other: Additional ROS info: Except as noted in the above Review of Systems and in the History of Present Illness, all other systems have been reviewed and are negative or noncontributory. Physical Exam Vitals & Measurements HR: 72(Peripheral) RR: 16 BP: 116/74 HT: 170.0 cm HT: 170 cm WT: 77.9 kg WT: 77.9 kg BMI: 26.96 HEENT: normal conjunctiva, sclera clear, no scleral icterus, EOM intact, PERRLA, oral mucosa moist without lesions. Neck: trachea midline, no mass, symmetric, no thyromegaly or nodules, no adenopathy Respiratory: lungs CTA, respirations non labored. Cardiovascular: regular rate and rhythm, no murmur, no pedal edema or varicosities. Gastrointestinal: soft, non distended, no tenderness, no masses, no palpable hernias, diastasis recti no, no hepatosplenomegaly; normal bs rectal: no external hemorrhoids or fissures, no irritation; normal tone; posterior rectal mass, firm, flat, 2 cm, friable, blood on examining finger. Lymphatic: no cervical adenopathy, Musculoskeletal: normal gait, digits and nails without infection, nodes, cyanosis, clubbing. Skin: no rashes, no lesions, no ulcers, no subcutaneous nodules, induration. Psychiatric/Neuro: oriented to time, place, person, judgement normal, affect appropriate for age, insight intact, no focal deficits. Tests: labs reviewed, review of old records completed, Discussed surgical options, risks, and possible complications with patient. Assessment/Plan 1. Rectal bleeding (K62.5: Hemorrhage of anus and rectum) plan colonoscopy under anesthesia for further evaluation; informed consent obtained. 2. Rectal mass (K62.89: Other specified diseases of anus and rectum) see # 1 Follow-up No qualifying data available Problem List/Past Medical History Ongoing BMI 26.0-26.9,adult Dysphagia GERD (gastroesophageal reflux disease) Low back pain syndrome Orthostasis Ovarian cyst Paresthesia Peripheral edema Positive occult stool blood test Rectal bleeding Rectal mass Historical No qualifying data Procedure/Surgical History EGD - Esophagogastroduodenoscopy (2019), Dilatation of esophageal stricture, Ovarian cystectomy. Medications fludrocortisone 0.1 mg Tab, 0.05 mg= 0.5 tab(s), Oral, BID Multi Vitamins oral tablet, 1 tab(s), Oral, Daily Allergies amoxicillin (Hives) sulfa drugs Social History Alcohol - Denies Alcohol Use, 02/20/2022 Substance Abuse - Denies Substance Abuse, 02/20/2022 Tobacco - Denies Tobacco Use, 02/20/2022 Never (less than 100 in lifetime) Tobacco Use:. Never Smokeless Tobacco Use:., 02/20/2022 Family History Diabetes mellitus type 2: Father. Parkinson disease: Father. [facility] Comment on above: Result Comment: Elec tronically Signed By: RODERICK SERNA, Vitaly Machado\Date and Time Signed: 02/20/22 17:08 EDT Evaluation + Plan note No data available for this section General Surgery [facility] Evaluation note Diagnosis Rectal mass- Primary Other symptoms involving digestive system Anal cancer (HCC) Malignant neoplasm of anus, unspecified site documented in this encounter [facility] note* Diagnosis OPENED IN ERROR- Primary To allow closing an encounter opened in error (used in SmartSet) documented in this encounter [facility] note* Diagnosis Anal cancer (HCC) Malignant neoplasm of anus, unspecified site documented in this encounter [facility] note* Diagnosis Anal cancer (HCC) Malignant neoplasm of anus, unspecified site documented in this encounter [facility] note* Diagnosis Anal cancer (HCC)- Primary Malignant neoplasm of anus, unspecified site POTS (postural orthostatic tachycardia syndrome) Tachycardia, unspecified documented in this encounter [facility] note* Diagnosis Anal cancer (HCC)- Primary Malignant neoplasm of anus, unspecified site documented in this encounter [facility] note* Diagnosis Anal cancer (HCC)- Primary Malignant neoplasm of anus, unspecified site documented in this encounter [facility] note* Diagnosis Anal cancer (HCC)- Primary Malignant neoplasm of anus, unspecified site documented in this encounter [facility] note* Diagnosis Anal cancer (HCC)- Primary Malignant neoplasm of anus, unspecified site POTS (postural orthostatic tachycardia syndrome) Tachycardia, unspecified documented in this encounter [facility] note* Diagnosis Anal cancer (HCC)- Primary Malignant neoplasm of anus, unspecified site POTS (postural orthostatic tachycardia syndrome) Tachycardia, unspecified documented in this encounter [facility] note* Diagnosis Anal cancer (HCC) Malignant neoplasm of anus, unspecified site documented in this encounter [facility] note* Diagnosis Anal cancer (HCC)- Primary Malignant neoplasm of anus, unspecified site POTS (postural orthostatic tachycardia syndrome) Tachycardia, unspecified documented in this encounter [facility] note* Diagnosis Anal cancer (HCC)- Primary Malignant neoplasm of anus, unspecified site POTS (postural orthostatic tachycardia syndrome) Tachycardia, unspecified documented in this encounter [facility] note* Diagnosis Anal cancer (HCC)- Primary Malignant neoplasm of anus, unspecified site POTS (postural orthostatic tachycardia syndrome) Tachycardia, unspecified documented in this encounter [facility] note* Diagnosis Anal cancer (HCC)- Primary Malignant neoplasm of anus, unspecified site POTS (postural orthostatic tachycardia syndrome) Tachycardia, unspecified documented in this encounter [facility] note* Diagnosis Anal cancer (HCC)- Primary Malignant neoplasm of anus, unspecified site documented in this encounter [facility] note* Diagnosis Anal cancer (HCC)- Primary Malignant neoplasm of anus, unspecified site documented in this encounter [facility] note* Diagnosis Anal cancer (HCC)- Primary Malignant neoplasm of anus, unspecified site POTS (postural orthostatic tachycardia syndrome) Tachycardia, unspecified documented in this encounter [facility] note* Diagnosis Anal cancer (HCC)- Primary Malignant neoplasm of anus, unspecified site POTS (postural orthostatic tachycardia syndrome) Tachycardia, unspecified documented in this encounter [facility] note* Diagnosis Anal cancer (HCC)- Primary Malignant neoplasm of anus, unspecified site POTS (postural orthostatic tachycardia syndrome) Tachycardia, unspecified documented in this encounter [facility] note* Diagnosis Anal cancer (HCC)- Primary Malignant neoplasm of anus, unspecified site documented in this encounter [facility] note* Diagnosis Anal cancer (HCC)- Primary Malignant neoplasm of anus, unspecified site POTS (postural orthostatic tachycardia syndrome) Tachycardia, unspecified documented in this encounter [facility] note* Diagnosis Anal cancer (HCC)- Primary Malignant neoplasm of anus, unspecified site POTS (postural orthostatic tachycardia syndrome) Tachycardia, unspecified documented in this encounter [facility] note* Diagnosis Anal cancer (HCC)- Primary Malignant neoplasm of anus, unspecified site POTS (postural orthostatic tachycardia syndrome) Tachycardia, unspecified documented in this encounter [facility] note* Diagnosis Anal cancer (HCC)- Primary Malignant neoplasm of anus, unspecified site POTS (postural orthostatic tachycardia syndrome) Tachycardia, unspecified documented in this encounter [facility] note* Diagnosis Anal cancer (HCC)- Primary Malignant neoplasm of anus, unspecified site documented in this encounter [facility] note* Diagnosis Anal cancer (HCC)- Primary Malignant neoplasm of anus, unspecified site POTS (postural orthostatic tachycardia syndrome) Tachycardia, unspecified documented in this encounter [facility] note* Diagnosis Anal cancer (HCC)- Primary Malignant neoplasm of anus, unspecified site documented in this encounter [facility] note* Diagnosis Anal cancer (HCC) Malignant neoplasm of anus, unspecified site documented in this encounter [facility] note* Diagnosis Anal cancer (HCC)- Primary Malignant neoplasm of anus, unspecified site [facility] Diagnosis Anal cancer (HCC)- Primary Malignant neoplasm of anus, unspecified site POTS (postural orthostatic tachycardia syndrome) Tachycardia, unspecified documented in this encounter [facility] note* Diagnosis Malignant neoplasm of anus (HCC)- Primary Malignant neoplasm of anus, unspecified site Anal cancer (HCC) Malignant neoplasm of anus, unspecified site documented in this encounter [facility] note* Diagnosis 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, unspecified site [facility] Diagnosis Anal cancer (HCC)- Primary Malignant neoplasm of anus, unspecified site POTS (postural orthostatic tachycardia syndrome) Tachycardia, unspecified documented in this encounter [facility] note* Diagnosis Malignant neoplasm of anus (HCC)- Primary Malignant neoplasm of anus, unspecified site [facility] Diagnosis Encounter for follow-up surveillance of anal cancer- Primary [facility] Diagnosis Encounter for screening for osteoporosis- Primary Special screening for osteoporosis Symptomatic menopausal or female climacteric states Rectal cancer (HCC) Malignant neoplasm of rectum [facility] Diagnosis Anal cancer (HCC)- Primary Malignant neoplasm of anus, unspecified site POTS (postural orthostatic tachycardia syndrome) Tachycardia, unspecified [facility]* Diagnosis Malignant neoplasm of anus (HCC)- Primary Malignant neoplasm of anus, unspecified site [facility] Diagnosis 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, unspecified site [facility] Diagnosis 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, unspecified site [facility] Diagnosis Anal cancer (HCC)- Primary Malignant neoplasm of anus, unspecified site POTS (postural orthostatic tachycardia syndrome) Tachycardia, unspecified Encounter for follow-up surveillance of anal cancer- Primary [facility] Diagnosis Encounter for follow-up surveillance of anal cancer- Primary [facility] Diagnosis Encounter for screening for osteoporosis- Primary Special screening for osteoporosis 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 Anal cancer (HCC) Malignant neoplasm of anus, unspecified site [facility] Anal itching- Primary Pruritus ani Diarrhea, unspecified type documented in this encounter [facility] Discharge instructions No data available for this section General Surgery [facility] Progress note No data available for this section General Surgery [facility] Reason for Referral Specialty Diagnoses / Procedures Referred By Contac t Referred To Contact CT IMAGING Diagnoses Malignant neoplasm of anus (HCC) Procedures CT CHEST WO IVCON DIAGNOSTIC COMPUTED TOMOGRAPHY THORAX W/O CNTRST Toribio Michaud MD [address] [place] [address] [place] [address] [place] [address] Referral ID Status Reason Start Date Expiration Date Visits Requested Visits Authorized [id number] Waiting for Response Auto-Generat ed Referral 09/18/2023 10/18/2023 1 1 Specialty Diagnoses / Procedures Referred By Contac t Referred To Contact MR IMAGING Diagnoses Malignant neoplasm of anus (HCC) Procedures MRI ABDOMEN WO/W IVCON MRI ABDOMEN W/O & W/CONTRAST MATERIAL Toribio Michaud MD [address] [place] [address] [place] [address] [place] [address] Referral ID Status Reason Start Date Expiration Date Visits Requested Visits Authorized [id number] Authorized Auto-Generat ed Referral 09/16/2023 10/16/2023 1 1 Specialty Diagnoses / Procedures Referred By Contac t Referred To Contact MR IMAGING Diagnoses Malignant neoplasm of anus (HCC) Procedures MRI RECTUM WO/W IVCON MRI PELVIS W/O & W/CONTRAST MATERIAL Toribio Michaud MD [address] [place] [address] [place] [address] [place] [address] Referral ID Status Reason Start Date Expiration Date Visits Requested Visits Authorized [id number] Authorized Auto-Generat ed Referral 09/16/2023 10/16/2023 1 1 Specialty Diagnoses / Procedures Referred By Contac t Referred To Contact [facility] Diagnoses Malignant neoplasm of anus (HCC) Procedures CONSULT TO PHYSICAL THERAPY PHYSICAL THERAPY EVALUATION HIGH COMPLEX 45 MINS Toribio Michaud MD [address] [place] [address] [facility] [address] [place] [address] Referral ID Status Reason Start Date Expiration Date V isits Requested Visits Authorized [id number] Closed Auto-Generate d Referral 09/06/2022 09/06/2023 1 1 Specialty Diagnoses / Procedures Referred By Contac t Referred To Contact MR IMAGING Diagnoses Malignant neoplasm of anus (HCC) Procedures MRI RECTUM WO/W IVCON MRI PELVIS W/O & W/CONTRAST MATERIAL Toribio Michaud MD [address] [place] [address] Mr Imaging Referral ID Status Reason Start Date Expiration Date Visits Requested Visits Authorized [id number] Pending Review Auto-Generat ed Referral 10/14/2022 10/04/2023 1 1 Specialty Diagnoses / Procedures Referred By Contac t Referred To Contact Radiation Oncology Diagnoses Anal cancer (HCC) Procedures RAD/ONC CONSULT OFFICE/OUTPATIENT [facility] MDM 60-[place] [address] [place] [address] Referral ID Status Reason Start Date Expiration Date Visits Requested Visits Authorized [id number] Authorized PCP Requested Referral 2 05/02/2023 1 1 Specialty Diagnoses / Procedures Referred By Contac t Referred To Contact Oncology Diagnoses Anal cancer (HCC) Procedures CONSULT TO ONCOLOGY OFFICE/OUTPATIENT [facility] MDM 60-[place] [address] [address] [place] [address] Referral ID Status Reason Start Date Expiration Date Visits Requested Visits Authorized [id number] Authorized PCP Requested Referral 2 05/02/2023 1 1 Specialty Diagnoses / Procedures Referred By Contac t Referred To Contact CT IMAGING Diagnoses Anal cancer (HCC) Procedures CT ABDOMEN W IVCON [place] ABDOMEN [place] [address] [address] [place] [address] Ct Imaging Referral ID Status Reason Start Date Expiration Date Visits Requested Visits Authorized [id number] Pending Review Auto-Generat ed Referral 2 06/01/2023 1 1 Specialty Diagnoses / Procedures Referred By Contac t Referred To Contact CT IMAGING Diagnoses Anal cancer (HCC) Procedures CT CHEST W IVCON DIAGNOSTIC COMPUTED TOMOGRAPHY THORAX W/[place] [address] [address] [place] [address] Ct Imaging Referral ID Status Reason Start Date Expiration Date Visits Requested Visits Authorized [id number] Pending Review Auto-Generat ed Referral 2 06/01/2023 1 1 Specialty Diagnoses / Procedures Referred By Contac t Referred To Contact MR IMAGING Diagnoses Anal cancer (HCC) Procedures MRI RECTUM WO/W IVCON MRI PELVIS W/O & [place] [address] [address] [place] [address] Mr Imaging Referral ID Status Reason Start Date Expiration Date Visits Requested Visits Authorized [id number] Pending Review Auto-Generat ed Referral 2 06/01/2023 1 1 Summary Purpose Family History No Family History Records FoundNo Family History Records FoundNo Family History Records FoundNo Family History Records FoundNo Family History Records FoundNo Family History Records Found Advance Directives No Advanced Directives Records FoundNo Advanced Directives Records FoundNo Advanced Directives Records FoundNo Advanced Directives Records FoundNo Advanced Directives Records FoundNo Advanced Directives Records Found Medications Administered Section Inactive Administered Medications - up to 3 most recent administrations Medication Order MAR Action Action Date Dose Rate Site NaCl 0.9% 1,000 mL INTRAVENOUS, at 999 mL/hr, Administer over 1 Hours, ONCE, 1 dose, On Fri06/14/22 at 1330 New Bag/Syringe/Bottle 06/14/2022 1:25 PM EST 999 mL/hr Inactive Administered Medications - up to 3 most recent administrations Medication Order MAR Action Action Date Dose Rate Site NaCl 0.9% 1,000 mL INTRAVENOUS, at 999 mL/hr, Administer over 1 Hours, ONCE, 1 dose, On Fri06/19/22 at 1430 New Bag/Syringe/Bottle 06/19/2022 2:22 PM EST 999 mL/hr Inactive Administered Medications - up to 3 most recent administrations Medication Order MAR Action Action Date Dose Rate Site NaCl 0.9% 1,000 mL INTRAVENOUS, at 999 mL/hr, Administer over 1 Hours, ONCE, 1 dose, On Fri06/21/22 at 1330 New Bag/Syringe/Bottle 06/21/2022 1:30 PM EST 999 mL/hr Inactive Administered Medications - up to 3 most recent administrations Medication Order MAR Action Action Date Dose Rate Site NaCl 0.9% 1,000 mL INTRAVENOUS, at 999 mL/hr, Administer over 1 Hours, ONCE, 1 dose, On Fri06/24/22 at 1400 New Bag/Syringe/Bottle 06/24/2022 12:15 PM EST 999 mL/hr Inactive Administered Medications - up to 3 most recent administrations Medication Order MAR Action Action Date Dose Rate Site NaCl 0.9% 1,000 mL INTRAVENOUS, at 999 mL/hr, Administer over 1 Hours, ONCE, 1 dose, On Fri06/28/22 at 1030 New Bag/Syringe/Bottle 06/28/2022 10:30 AM EST 999 mL/hr Inactive Administered Medications - up to 3 most recent administrations Medication Order MAR Action Action Date Dose Rate Site NaCl 0.9% 1,000 mL INTRAVENOUS, at 999 mL/hr, Administer over 1 Hours, ONCE, 1 dose, On Fri07/10/22 at 1000 New Bag/Syringe/Bottle 07/10/2022 9:55 AM EST 999 mL/hr Inactive Administered Medications - up to 3 most recent administrations Medication Order MAR Action Action Date Dose Rate Site NaCl 0.9% 1,000 mL INTRAVENOUS, at 999 mL/hr, Administer over 1 Hours, ONCE, 1 dose, On Fri07/12/22 at 1030 New Bag/Syringe/Bottle 07/12/2022 10:20 AM EST 999 mL/hr Inactive Administered Medications - up to 3 most recent administrations Medication Order MAR Action Action Date Dose Rate Site NaCl 0.9% 1,000 mL INTRAVENOUS, at 999 mL/hr, Administer over 1 Hours, ONCE, 1 dose, On Fri07/17/22 at 1130 New Bag/Syringe/Bottle 07/17/2022 11:23 AM EST 999 mL/hr Inactive Administered Medications - up to 3 most recent administrations Medication Order MAR Action Action Date Dose Rate Site NaCl 0.9% 1,000 mL INTRAVENOUS, at 999 mL/hr, Administer over 1 Hours, ONCE, 1 dose, On Fri07/19/22 at 1030 New Bag/Syringe/Bottle 07/19/2022 10:22 AM EST 999 mL/hr Inactive Administered Medications - up to 3 most recent administrations Medication Order MAR Action Action Date Dose Rate Site NaCl 0.9% 1,000 mL INTRAVENOUS, at 999 mL/hr, Administer over 1 Hours, ONCE, 1 dose, On Fri07/22/22 at 1030 New Bag/Syringe/Bottle 07/22/2022 10:24 AM EST 999 mL/hr Inactive Administered Medications - up to 3 most recent administrations Medication Order MAR Action Action Date Dose Rate Site NaCl 0.9% 1,000 mL INTRAVENOUS, at 999 mL/hr, Administer over 1 Hours, ONCE, 1 dose, On Fri07/24/22 at 1100 New Bag/Syringe/Bottle 07/24/2022 10:30 AM EST 999 mL/hr Additional Source Comments Care Team (unrecognized sect ion and content) Ferry Hand Relationship Specialty Start Date End Date Sondra Liu MD PCP - General Family Medicine 08/17/13 Ferry Hand Relationship Specialty Start Date End Date Sondra Liu MD PCP - General Family Medicine 08/17/13 Ferry Hand Relationship Specialty Start Date End Date Sondra Liu MD PCP - General Family Medicine 08/17/13 Ferry Hand Relationship Specialty Start Date End Date Sondra Liu MD PCP - General Family Medicine 08/17/13 Ferry Hand Relationship Specialty Start Date End Date Sondra Liu MD PCP - General Family Medicine 08/17/13 Ferry Hand Relationship Specialty Start Date End Date Sondra Liu MD PCP - General Family Medicine 08/17/13 Paco Bonds MD [address] [place] [address] Physician Hematology/Oncology 05/23/22 Gerardo Mckinnon, [employer]LIVESTOCK BREEDER [address] [place] [address] Nurse Practitioner Hematology/Oncology 05/23/22 Leandra Whitehead, BLAIR [address] [place] [address] Specialty Residential Real Estate Sales Manager Hematology/Oncology 05/23/22 Toribio Michaud MD [address] [place] [address] Physician Radiation Oncology 05/23/22 Ferry Hand Relationship Specialty Start Date End Date Sondra Liu MD PCP - General Family Medicine 08/17/13 Paco Bonds MD [address] [place] [address] Physician Hematology/Oncology 05/23/22 Gerardo Mckinnon, [employer].LIVESTOCK BREEDER [address] [place] [address] Nurse Practitioner Hematology/Oncology 05/23/22 Leandra Whitehead, BLAIR [address] [place] [address] Specialty Residential Real Estate Sales Manager Hematology/Oncology 05/23/22 Toribio Michaud MD [address] [place] [address] Physician Radiation Oncology 05/23/22 Ferry Hand Relationship Specialty Start Date End Date Sondra Liu MD PCP - General Family Medicine 08/17/13 Paco Bonds MD [address] [place] [address] Physician Hematology/Oncology 05/23/22 Gerardo Mckinnon, [employer].LIVESTOCK BREEDER [address] [place] [address] Nurse Practitioner Hematology/Oncology 05/23/22 Leandra Whitehead, BLAIR [address] [place] [address] Specialty Residential Real Estate Sales Manager Hematology/Oncology 05/23/22 Toribio Michaud MD [address] [place] [address] Physician Radiation Oncology 05/23/22 Ferry Hand Relationship Specialty Start Date End Date Sondra Liu MD PCP - General Family Medicine 08/17/13 Paco Bonds MD [address] [place] [address] Physician Hematology/Oncology 05/23/22 Gerardo Mckinnon, [employer] [address] [place] [address] Nurse Practitioner Hematology/Oncology 05/23/22 Leandra Whitehead, BLAIR [address] [place] [address] Specialty Residential Real Estate Sales Manager Hematology/Oncology 05/23/22 Toribio Michaud MD [address] [place] [address] Physician Radiation Oncology 05/23/22 Ferry Hand Relationship Specialty Start Date End Date Sondra Liu MD PCP - General Family Medicine 08/17/13 Paco Bonds MD [address] [place] [address] Physician Hematology/Oncology 05/23/22 Gerardo Mckinnon, [employer].[facility] [address] [place] [address] Nurse Practitioner Hematology/Oncology 05/23/22 Leandra Whitehead, BLAIR [address] [place] [address] Specialty Residential Real Estate Sales Manager Hematology/Oncology 05/23/22 Toribio Michaud MD [address] [place] [address] Physician Radiation Oncology 05/23/22 Ferry Hand Relationship Specialty Start Date End Date Sondra Liu MD PCP - General Family Medicine 08/17/13 Paco Bonds MD [address] [place] [address] Physician Hematology/Oncology 05/23/22 Gerardo Mckinnon, [employer].[facility] [address] [place] [address] Nurse Practitioner Hematology/Oncology 05/23/22 Leandra Whitehead, BLAIR [address] [place] [address] Specialty Residential Real Estate Sales Manager Hematology/Oncology 05/23/22 Toribio Michaud MD [address] [place] [address] Physician Radiation Oncology 05/23/22 Ferry Hand Relationship Specialty Start Date End Date Sondra Liu MD PCP - General Family Medicine 08/17/13 Paco Bonds MD [address] [place] [address] Physician Hematology/Oncology 05/23/22 Gerardo Mckinnon, [employer] [address] [place] [address] Nurse Practitioner Hematology/Oncology 05/23/22 Leandra Whitehead, BLAIR [address] [place] [address] Specialty Residential Real Estate Sales Manager Hematology/Oncology 05/23/22 Toribio Michaud MD [address] [place] [address] Physician Radiation Oncology 05/23/22 Ferry Hand Relationship Specialty Start Date End Date Sondra Liu MD PCP - General Family Medicine 08/17/13 Paco Bonds MD [address] [place] [address] Physician Hematology/Oncology 05/23/22 Gerardo Mckinnon, [employer].[facility] [address] [place] [address] Nurse Practitioner Hematology/Oncology 05/23/22 Leandra Whitehead, BLAIR [address] [place] [address] Specialty Residential Real Estate Sales Manager Hematology/Oncology 05/23/22 Toribio Michaud MD [address] [place] [address] Physician Radiation Oncology 05/23/22 Ferry Hand Relationship Specialty Start Date End Date Sondra Liu MD PCP - General Family Medicine 08/17/13 Paco Bonds MD [address] [place] [address] Physician Hematology/Oncology 05/23/22 Gerardo Mckinnon, [employer] [address] [place] [address] Nurse Practitioner Hematology/Oncology 05/23/22 Leandra Whitehead, BLAIR [address] [place] [address] Specialty Residential Real Estate Sales Manager Hematology/Oncology 05/23/22 Toribio Michaud MD [address] [place] [address] Physician Radiation Oncology 05/23/22 Ferry Hand Relationship Specialty Start Date End Date Sondra Liu MD PCP - General Family Medicine 08/17/13 Paco Bonds MD [address] [place] [address] Physician Hematology/Oncology 05/23/22 Gerardo Mckinnon, GR[employer] [address] [place] [address] Nurse Practitioner Hematology/Oncology 05/23/22 Leandra Whitehead, BLAIR [address] [place] [address] Specialty Residential Real Estate Sales Manager Hematology/Oncology 05/23/22 Toribio Michaud MD [address] [place] [address] Physician Radiation Oncology 05/23/22 Ferry Hand Relationship Specialty Start Date End Date Sondra Liu MD PCP - General Family Medicine 08/17/13 Paco Bonds MD [address] [place] [address] Physician Hematology/Oncology 05/23/22 Gerardo Mckinnon, GR[employer] [address] [place] [address] Nurse Practitioner Hematology/Oncology 05/23/22 Leandra Whitehead, BLAIR [address] [place] [address] Specialty Residential Real Estate Sales Manager Hematology/Oncology 05/23/22 Toribio Michaud MD [address] [place] [address] Physician Radiation Oncology 05/23/22 Ferry Hand Relationship Specialty Start Date End Date Sondra Liu MD PCP - General Family Medicine 08/17/13 Paco Bonds MD [address] [place] [address] Physician Hematology/Oncology 05/23/22 Gerardo Mckinnon, [employer] [address] [place] [address] Nurse Practitioner Hematology/Oncology 05/23/22 Leandra Whitehead, BLAIR [address] [place] [address] Specialty Residential Real Estate Sales Manager Hematology/Oncology 05/23/22 Toribio Michaud MD [address] [place] [address] Physician Radiation Oncology 05/23/22 Ferry Hand Relationship Specialty Start Date End Date Sondra Liu MD PCP - General Family Medicine 08/17/13 Paco Bonds MD [address] [place] [address] Physician Hematology/Oncology 05/23/22 Gerardo Mckinnon, GR[employer]ER [address] [place] [address] Nurse Practitioner Hematology/Oncology 05/23/22 Leandra Whitehead, BLAIR [address] [place] [address] Specialty Residential Real Estate Sales Manager Hematology/Oncology 05/23/22 Toribio Michaud MD [address] [place] [address] Physician Radiation Oncology 05/23/22 Ferry Hand Relationship Specialty Start Date End Date Sondra Liu MD PCP - General Family Medicine 08/17/13 Paco Bonds MD [address] [place] [address] Physician Hematology/Oncology 05/23/22 Gerardo Mckinnon, GR[employer] [address] [place] [address] Nurse Practitioner Hematology/Oncology 05/23/22 Leandra Whiteheda, BLAIR [address] [place] [address] Specialty Residential Real Estate Sales Manager Hematology/Oncology 05/23/22 Toribio Michaud MD [address] [place] [address] Physician Radiation Oncology 05/23/22 Ferry Hand Relationship Specialty Start Date End Date Sondra Lui MD PCP - General Family Medicine 08/17/13 Paco Bonds MD [address] [place] [address] Physician Hematology/Oncology 05/23/22 Gerardo Mckinnon, GR[employer]ER [address] [place] [address] Nurse Practitioner Hematology/Oncology 05/23/22 Leandra Whitehead, BLAIR [address] [place] [address] Specialty Residential Real Estate Sales Manager Hematology/Oncology 05/23/22 Toribio Michaud MD [address] [place] [address] Physician Radiation Oncology 05/23/22 Ferry Hand Relationship Specialty Start Date End Date Sondra Liu MD PCP - General Family Medicine 08/17/13 Paco Bonds MD [address] [place] [address] Physician Hematology/Oncology 05/23/22 Gerardo Mckinnon, GR[employer] [address] [place] [address] Nurse Practitioner Hematology/Oncology 05/23/22 Leandra Whitehead, RN [address] [place] [address] Specialty Residential Real Estate Sales Manager Hematology/Oncology 05/23/22 Toribio Michaud MD [address] [place] [address] Physician Radiation Oncology 05/23/22 Ferry Hand Relationship Specialty Start Date End Date Sondra Liu MD PCP - General Family Medicine 08/17/13 Paco Bonds MD [address] [place] [address] Physician Hematology/Oncology 05/23/22 Gerardo Mckinnon, GR[employer] [address] [place] [address] Nurse Practitioner Hematology/Oncology 05/23/22 Leandra Whitehead, BLAIR [address] [place] [address] Specialty Residential Real Estate Sales Manager Hematology/Oncology 05/23/22 Toribio Michaud MD [address] [place], [place] [address] Physician Radiation Oncology 05/23/22 Ferry Hand Relationship Specialty Start Date End Date Sondra Liu MD PCP - General Family Medicine 08/17/13 Paco Bonds MD [address] [place] [address] Physician Hematology/Oncology 05/23/22 Gerardo Mckinnon, GRAD[employer] BRE[employer]ER [address] [place] [address] Nurse Practitioner Hematology/Oncology 05/23/22 Leandra Whitehead, BLAIR [address] [place] [address] Specialty Residential Real Estate Sales Manager Hematology/Oncology 05/23/22 Toribio Michaud MD [address] [place] [address] Physician Radiation Oncology 05/23/22 Ferry Hand Relationship Specialty Start Date End Date Sondra Liu MD PCP - General Family Medicine 08/17/13 Paco Bonds MD [address] [place] [address] Physician Hematology/Oncology 05/23/22 Gerardo Mckinnon, GR[employer] [address] [place] [address] Nurse Practitioner Hematology/Oncology 05/23/22 Leandra Whitehead, RN [address] [place] [address] Specialty Residential Real Estate Sales Manager Hematology/Oncology 05/23/22 Toribio Michaud MD [address] [place] [address] Physician Radiation Oncology 05/23/22 Ferry Hand Relationship Specialty Start Date End Date Sondra Liu MD PCP - General Family Medicine 08/17/13 Paco Bonds MD [address] [place] [address] Physician Hematology/Oncology 05/23/22 Gerardo Mckinnon, GRAD[employer]ER [address] [place] [address] Nurse Practitioner Hematology/Oncology 05/23/22 Leandra Whitehead, BLAIR [address] [place] [address] Specialty Residential Real Estate Sales Manager Hematology/Oncology 05/23/22 Toribio Michaud MD [address] [place] [address] Physician Radiation Oncology 05/23/22 Ferry Hand Relationship Specialty Start Date End Date Sondra Liu MD PCP - General Family Medicine 08/17/13 Paco Bonds MD [address] [place] [address] Physician Hematology/Oncology 05/23/22 Gerardo Mckinnon, GRAD[employer] BRE[employer]ER [address] [place] [address] Nurse Practitioner Hematology/Oncology 05/23/22 Leandra Whitehead, RN [address] [place] [address] Specialty Residential Real Estate Sales Manager Hematology/Oncology 05/23/22 Toribio Michaud MD [address] [place] [address] Physician Radiation Oncology 05/23/22 Ferry Hand Relationship Specialty Start Date End Date Sondra Liu MD PCP - General Family Medicine 08/17/13 Paco Bonds MD [address] [place] [address] Physician Hematology/Oncology 05/23/22 Gerardo Mckinnon, GRAD[employer]ER [address] [place] [address] Nurse Practitioner Hematology/Oncology 05/23/22 Leandra Whitehead, RN [address] [place] [address] Specialty Residential Real Estate Sales Manager Hematology/Oncology 05/23/22 Toribio Michaud MD [address] [place] [address] Physician Radiation Oncology 05/23/22 Ferry Hand Relationship Specialty Start Date End Date Sondra Liu MD PCP - General Family Medicine 08/17/13 Paco Bonds MD [address] [place] [address] Physician Hematology/Oncology 05/23/22 Gerardo Mckinnon, GRAD[employer] BREEDER [address] [place] [address] Nurse Practitioner Hematology/Oncology 05/23/22 Leandra Whitehead, RN [address] [place] [address] Specialty Residential Real Estate Sales Manager Hematology/Oncology 05/23/22 Toribio Michaud MD [address] [place] [address] Physician Radiation Oncology 05/23/22 Ferry Hand Relationship Specialty Start Date End Date Sondra Liu MD PCP - General Family Medicine 08/17/13 Paco Bonds MD [address] [place] [address] Physician Hematology/Oncology 05/23/22 Gerardo Mckinnon, GRAD[employer] BREEDER [address] [place] [address] Nurse Practitioner Hematology/Oncology 05/23/22 Leandra Whitehead, RN [address] [place] [address] Specialty Residential Real Estate Sales Manager Hematology/Oncology 05/23/22 Toribio Michaud MD [address] [place] [address] Physician Radiation Oncology 05/23/22 Ferry Hand Relationship Specialty Start Date End Date Sondra Liu MD PCP - General Family Medicine 08/17/13 Paco Bonds MD [address] [place] [address] Physician Hematology/Oncology 05/23/22 Gerardo Mckinnon, GRAD[employer] BRE[employer]ER [address] [place] [address] Nurse Practitioner Hematology/Oncology 05/23/22 Leandra Whitehead, BLAIR [address] [place] [address] Specialty Residential Real Estate Sales Manager Hematology/Oncology 05/23/22 Toribio Michaud MD [address] [place] [address] Physician Radiation Oncology 05/23/22 Ferry Hand Relationship Specialty Start Date End Date Sondra Liu MD PCP - General Family Medicine 08/17/13 Paco Bonds MD [address] [place] [address] Physician Hematology/Oncology 05/23/22 Gerardo Mckinnon, GRADER [employer] BREEDER [address] [place] [address] Nurse Practitioner Hematology/Oncology 05/23/22 Leandra Whitehead, RN [address] [place] [address] Specialty Residential Real Estate Sales Manager Hematology/Oncology 05/23/22 Toribio Michaud MD [address] [place] [address] Physician Radiation Oncology 05/23/22 Ferry Hand Relationship Specialty Start Date End Date Sondra Liu MD PCP - General Family Medicine 08/17/13 Paco Bonds MD [address] [place] [address] Physician Hematology/Oncology 05/23/22 Gerardo Mckinnon, GRAD[employer]OCK BREEDER [address] [place] [address] Nurse Practitioner Hematology/Oncology 05/23/22 Leandra Whitehead, BLAIR [address] [place] [address] Specialty Residential Real Estate Sales Manager Hematology/Oncology 05/23/22 Toribio Michaud MD [address] [place] [address] Physician Radiation Oncology 05/23/22 Ferry Hand Relationship Specialty Start Date End Date Sondra Liu MD PCP - General Family Medicine 08/17/13 Paco Bonds MD [address] [place] [address] Physician Hematology/Oncology 05/23/22 Gerardo Mckinnon, GRAD[employer] BREEDER [address] [place] [address] Nurse Practitioner Hematology/Oncology 05/23/22 Leandra Whitehead, BLAIR [address] [place] [address] Specialty Residential Real Estate Sales Manager Hematology/Oncology 05/23/22 Toribio Michaud MD [address] [place] [address] Physician Radiation Oncology 05/23/22 Ferry Hand Relationship Specialty Start Date End Date Sondra Liu MD PCP - General Family Medicine 08/17/13 Paco Bonds MD [address] [place] [address] Physician Hematology/Oncology 05/23/22 Gerardo Mckinnon, GRAD[employer] BREEDER [address] [place] [address] Nurse Practitioner Hematology/Oncology 05/23/22 Leandra Whitehead, BLAIR [address] [place] [address] Specialty Residential Real Estate Sales Manager Hematology/Oncology 05/23/22 Toribio Michaud MD [address] [place] [address] Physician Radiation Oncology 05/23/22 Ferry Hand Relationship Specialty Start Date End Date Sondra Liu MD PCP - General Family Medicine 08/17/13 Paco Bonds MD [address] [place] [address] [place] [address] Physician Hematology/Oncology 05/23/22 Gerardo Mckinnon, GRAD[employer] BRE[employer]ER [address] [place] [address] Nurse Practitioner Hematology/Oncology 05/23/22 Leandra Whitehead, BLAIR [address] [place] [address] Specialty Residential Real Estate Sales Manager Hematology/Oncology 05/23/22 Toribio Michaud MD [address] [place] [address] Physician Radiation Oncology 05/23/22 Ferry Hand Relationship Specialty Start Date End Date Sondra Liu MD PCP - General Family Medicine 08/17/13 Paco Bonds MD [address] [place] [address] Physician Hematology/Oncology 05/23/22 Gerardo Mckinnon, GRAD[employer] BREEDER [address] [facility] [address] Nurse Practitioner Hematology/Oncology 05/23/22 Leandra Whitehead, BLAIR [address] [place] [address] Specialty Residential Real Estate Sales Manager Hematology/Oncology 05/23/22 Toribio Michaud MD [address] [place] [address] Physician Radiation Oncology 05/23/22 Ferry Hand Relationship Specialty Start Date End Date Sondra Liu MD PCP - General Family Medicine 08/17/13 Paco Bonds MD [address] [place] [address] Physician Hematology/Oncology 05/23/22 Gerardo Mckinnon, GRAD[employer] BREEDER [address] [place] [address] Nurse Practitioner Hematology/Oncology 05/23/22 Toribio Michaud MD [address] [place] [address] Physician Radiation Oncology 05/23/22 Ferry Hand Relationship Specialty Start Date End Date Sondra Liu MD PCP - General Family Medicine 08/17/13 Paco Bonds MD [address] [place] [address] Physician Hematology/Oncology 05/23/22 Gerardo Mckinnon, GRAD[employer]OCK BREEDER [address] [facility] [place] [address] Nurse Practitioner Hematology/Oncology 05/23/22 Toribio Michaud MD [address] [place] [address] Physician Radiation Oncology 05/23/22 Ferry Hand Relationship Specialty Start Date End Date Sondra Liu MD PCP - General Family Medicine 08/17/13 Paco Bonds MD [address] [place] [address] Physician Hematology/Oncology 05/23/22 Gerardo Mckinnon, GRADER [employer] BREEDER [address] [facility] [place] [address] Nurse Practitioner Hematology/Oncology 05/23/22 Toribio Michaud MD [address] [facility] [place] [address] Physician Radiation Oncology 05/23/22 Ferry Hand Relationship Specialty Start Date End Date Sondra Liu MD PCP - General Family Medicine 08/17/13 Paco Bonds MD [address] [facility] [place] [place] [address] Physician Hematology/Oncology 05/23/22 Gerardo Mckinnon, GRAD[employer] BREEDER [address] [place] [address] Nurse Practitioner Hematology/Oncology 05/23/22 Toribio Michaud MD [address] [facility] [place] [address] Physician Radiation Oncology 05/23/22 Ferry Hand Relationship Specialty Start Date End Date Sondra Liu MD PCP - General Family Medicine 08/17/13 Paco Bonds MD [address] [facility] [place] [address] Physician Hematology/Oncology 05/23/22 Gerardo Mckinnon, GRADER [employer]OCK BREEDER [address] [facility] [place] [address] Nurse Practitioner Hematology/Oncology 05/23/22 Toribio Michaud MD [address] [facility] [place] [address] Physician Radiation Oncology 05/23/22 Ferry Hand Relationship Specialty Start Date End Date Sondra Liu MD PCP - General Family Medicine 08/17/13 Paco Bonds MD [address] [facility] [place] [address] Physician Hematology/Oncology 05/23/22 Gerardo Mckinnon, GRADER [employer]OCK BREEDER [address] [facility] [place] [address] Nurse Practitioner Hematology/Oncology 05/23/22 Toribio Michaud MD [address] [facility] [place] [address] Physician Radiation Oncology 05/23/22 Ferry Hand Relationship Specialty Start Date End Date Sondra Liu MD PCP - General Family Medicine 08/17/13 Paco Bonds MD [address] [place] [address] Physician Hematology/Oncology 05/23/22 Gerardo Mckinnon APRN.[employer] BREEDER [address] [place] [address] Nurse Practitioner Hematology/Oncology 05/23/22 Toribio Michaud MD [address] [place] [address] Physician Radiation Oncology 05/23/22 Source Comments (unrecognize d section and content) In the event this informatio n is protected by the Federal Confidentiality of Alcohol and Drug Abuse Patient Records regulations: The Federal rules restrict any use of the information to criminally investigate or prosecute any alcohol or drug abuse patient.[facility] the event this information is protected by the Federal Confidentiality of Alcohol and Drug Abuse Patient Records regulations: The Federal rules restrict any use of the information to criminally investigate or prosecute any alcohol or drug abuse patient.[facility] the event this information is protected by the Federal Confidentiality of Alcohol and Drug Abuse Patient Records regulations: The Federal rules restrict any use of the information to criminally investigate or prosecute any alcohol or drug abuse patient.[facility] the event this information is protected by the Federal Confidentiality of Alcohol and Drug Abuse Patient Records regulations: The Federal rules restrict any use of the information to criminally investigate or prosecute any alcohol or drug abuse patient.[facility] the event this information is protected by the Federal Confidentiality of Alcohol and Drug Abuse Patient Records regulations: The Federal rules restrict any use of the information to criminally investigate or prosecute any alcohol or drug abuse patient.[facility] the event this information is protected by the Federal Confidentiality of Alcohol and Drug Abuse Patient Records regulations: The Federal rules restrict any use of the information to criminally investigate or prosecute any alcohol or drug abuse patient.[facility] the event this information is protected by the Federal Confidentiality of Alcohol and Drug Abuse Patient Records regulations: The Federal rules restrict any use of the information to criminally investigate or prosecute any alcohol or drug abuse patient.[facility] the event this information is protected by the Federal Confidentiality of Alcohol and Drug Abuse Patient Records regulations: The Federal rules restrict any use of the information to criminally investigate or prosecute any alcohol or drug abuse patient.[facility] the event this information is protected by the Federal Confidentiality of Alcohol and Drug Abuse Patient Records regulations: The Federal rules restrict any use of the information to criminally investigate or prosecute any alcohol or drug abuse patient.[facility] the event this information is protected by the Federal Confidentiality of Alcohol and Drug Abuse Patient Records regulations: The Federal rules restrict any use of the information to criminally investigate or prosecute any alcohol or drug abuse patient.[facility] the event this information is protected by the Federal Confidentiality of Alcohol and Drug Abuse Patient Records regulations: The Federal rules restrict any use of the information to criminally investigate or prosecute any alcohol or drug abuse patient.[facility] the event this information is protected by the Federal Confidentiality of Alcohol and Drug Abuse Patient Records regulations: The Federal rules restrict any use of the information to criminally investigate or prosecute any alcohol or drug abuse patient.[facility]In the event this information is protected by the Federal Confidentiality of Alcohol and Drug Abuse Patient Records regulations: The Federal rules restrict any use of the information to criminally investigate or prosecute any alcohol or drug abuse patient.[facility]In the event this information is protected by the Federal Confidentiality of Alcohol and Drug Abuse Patient Records regulations: The Federal rules restrict any use of the information to criminally investigate or prosecute any alcohol or drug abuse patient.[facility]In the event this information is protected by the Federal Confidentiality of Alcohol and Drug Abuse Patient Records regulations: The Federal rules restrict any use of the information to criminally investigate or prosecute any alcohol or drug abuse patient.[facility]In the event this information is protected by the Federal Confidentiality of Alcohol and Drug Abuse Patient Records regulations: The Federal rules restrict any use of the information to criminally investigate or prosecute any alcohol or drug abuse patient.[facility] HospitalIn the event this information is protected by the Federal Confidentiality of Alcohol and Drug Abuse Patient Records regulations: The Federal rules restrict any use of the information to criminally investigate or prosecute any alcohol or drug abuse patient.[facility] HospitalIn the event this information is protected by the Federal Confidentiality of Alcohol and Drug Abuse Patient Records regulations: The Federal rules restrict any use of the information to criminally investigate or prosecute any alcohol or drug abuse patient.[facility] HospitalIn the event this information is protected by the Federal Confidentiality of Alcohol and Drug Abuse Patient Records regulations: The Federal rules restrict any use of the information to criminally investigate or prosecute any alcohol or drug abuse patient.[facility] HospitalIn the event this information is protected by the Federal Confidentiality of Alcohol and Drug Abuse Patient Records regulations: The Federal rules restrict any use of the information to criminally investigate or prosecute any alcohol or drug abuse patient.[facility] HospitalIn the event this information is protected by the Federal Confidentiality of Alcohol and Drug Abuse Patient Records regulations: The Federal rules restrict any use of the information to criminally investigate or prosecute any alcohol or drug abuse patient.[facility] HospitalIn the event this information is protected by the Federal Confidentiality of Alcohol and Drug Abuse Patient Records regulations: The Federal rules restrict any use of the information to criminally investigate or prosecute any alcohol or drug abuse patient.[facility] HospitalIn the event this information is protected by the Federal Confidentiality of Alcohol and Drug Abuse Patient Records regulations: The Federal rules restrict any use of the information to criminally investigate or prosecute any alcohol or drug abuse patient.[facility] HospitalIn the event this information is protected by the Federal Confidentiality of Alcohol and Drug Abuse Patient Records regulations: The Federal rules restrict any use of the information to criminally investigate or prosecute any alcohol or drug abuse patient.[facility] HospitalIn the event this information is protected by the Federal Confidentiality of Alcohol and Drug Abuse Patient Records regulations: The Federal rules restrict any use of the information to criminally investigate or prosecute any alcohol or drug abuse patient.[facility] HospitalIn the event this information is protected by the Federal Confidentiality of Alcohol and Drug Abuse Patient Records regulations: The Federal rules restrict any use of the information to criminally investigate or prosecute any alcohol or drug abuse patient.[facility] HospitalIn the event this information is protected by the Federal Confidentiality of Alcohol and Drug Abuse Patient Records regulations: The Federal rules restrict any use of the information to criminally investigate or prosecute any alcohol or drug abuse patient.[facility] HospitalIn the event this information is protected by the Federal Confidentiality of Alcohol and Drug Abuse Patient Records regulations: The Federal rules restrict any use of the information to criminally investigate or prosecute any alcohol or drug abuse patient.[facility] HospitalIn the event this information is protected by the Federal Confidentiality of Alcohol and Drug Abuse Patient Records regulations: The Federal rules restrict any use of the information to criminally investigate or prosecute any alcohol or drug abuse patient.[facility] HospitalIn the event this information is protected by the Federal Confidentiality of Alcohol and Drug Abuse Patient Records regulations: The Federal rules restrict any use of the information to criminally investigate or prosecute any alcohol or drug abuse patient.[facility] HospitalIn the event this information is protected by the Federal Confidentiality of Alcohol and Drug Abuse Patient Records regulations: The Federal rules restrict any use of the information to criminally investigate or prosecute any alcohol or drug abuse patient.[facility] HospitalIn the event this information is protected by the Federal Confidentiality of Alcohol and Drug Abuse Patient Records regulations: The Federal rules restrict any use of the information to criminally investigate or prosecute any alcohol or drug abuse patient.[facility] HospitalIn the event this information is protected by the Federal Confidentiality of Alcohol and Drug Abuse Patient Records regulations: The Federal rules restrict any use of the information to criminally investigate or prosecute any alcohol or drug abuse patient.[facility] HospitalIn the event this information is protected by the Federal Confidentiality of Alcohol and Drug Abuse Patient Records regulations: The Federal rules restrict any use of the information to criminally investigate or prosecute any alcohol or drug abuse patient.[facility] HospitalIn the event this information is protected by the Federal Confidentiality of Alcohol and Drug Abuse Patient Records regulations: The Federal rules restrict any use of the information to criminally investigate or prosecute any alcohol or drug abuse patient.[facility] HospitalIn the event this information is protected by the Federal Confidentiality of Alcohol and Drug Abuse Patient Records regulations: The Federal rules restrict any use of the information to criminally investigate or prosecute any alcohol or drug abuse patient.[facility] HospitalIn the event this information is protected by the Federal Confidentiality of Alcohol and Drug Abuse Patient Records regulations: The Federal rules restrict any use of the information to criminally investigate or prosecute any alcohol or drug abuse patient.[facility] HospitalIn the event this information is protected by the Federal Confidentiality of Alcohol and Drug Abuse Patient Records regulations: The Federal rules restrict any use of the information to criminally investigate or prosecute any alcohol or drug abuse patient.[facility] HospitalIn the event this information is protected by the Federal Confidentiality of Alcohol and Drug Abuse Patient Records regulations: The Federal rules restrict any use of the information to criminally investigate or prosecute any alcohol or drug abuse patient.[facility] HospitalIn the event this information is protected by the Federal Confidentiality of Alcohol and Drug Abuse Patient Records regulations: The Federal rules restrict any use of the information to criminally investigate or prosecute any alcohol or drug abuse patient.[facility] HospitalIn the event this information is protected by the Federal Confidentiality of Alcohol and Drug Abuse Patient Records regulations: The Federal rules restrict any use of the information to criminally investigate or prosecute any alcohol or drug abuse patient.[facility] HospitalIn the event this information is protected by the Federal Confidentiality of Alcohol and Drug Abuse Patient Records regulations: The Federal rules restrict any use of the information to criminally investigate or prosecute any alcohol or drug abuse patient.[facility] HospitalIn the event this information is protected by the Federal Confidentiality of Alcohol and Drug Abuse Patient Records regulations: The Federal rules restrict any use of the information to criminally investigate or prosecute any alcohol or drug abuse patient.[facility] HospitalIn the event this information is protected by the Federal Confidentiality of Alcohol and Drug Abuse Patient Records regulations: The Federal rules restrict any use of the information to criminally investigate or prosecute any alcohol or drug abuse patient.[facility] HospitalIn the event this information is protected by the Federal Confidentiality of Alcohol and Drug Abuse Patient Records regulations: The Federal rules restrict any use of the information to criminally investigate or prosecute any alcohol or drug abuse patient.[facility] HospitalIn the event this information is protected by the Federal Confidentiality of Alcohol and Drug Abuse Patient Records regulations: The Federal rules restrict any use of the information to criminally investigate or prosecute any alcohol or drug abuse patient.[facility] HospitalIn the event this information is protected by the Federal Confidentiality of Alcohol and Drug Abuse Patient Records regulations: The Federal rules restrict any use of the information to criminally investigate or prosecute any alcohol or drug abuse patient.[facility] HospitalIn the event this information is protected by the Federal Confidentiality of Alcohol and Drug Abuse Patient Records regulations: The Federal rules restrict any use of the information to criminally investigate or prosecute any alcohol or drug abuse patient.[facility] HospitalIn the event this information is protected by the Federal Confidentiality of Alcohol and Drug Abuse Patient Records regulations: The Federal rules restrict any use of the information to criminally investigate or prosecute any alcohol or drug abuse patient.[facility] HospitalIn the event this information is protected by the Federal Confidentiality of Alcohol and Drug Abuse Patient Records regulations: The Federal rules restrict any use of the information to criminally investigate or prosecute any alcohol or drug abuse patient.[facility] HospitalIn the event this information is protected by the Federal Confidentiality of Alcohol and Drug Abuse Patient Records regulations: The Federal rules restrict any use of the information to criminally investigate or prosecute any alcohol or drug abuse patient.[facility] HospitalIn the event this information is protected by the Federal Confidentiality of Alcohol and Drug Abuse Patient Records regulations: The Federal rules restrict any use of the information to criminally investigate or prosecute any alcohol or drug abuse patient.[facility] HospitalIn the event this information is protected by the Federal Confidentiality of Alcohol and Drug Abuse Patient Records regulations: The Federal rules restrict any use of the information to criminally investigate or prosecute any alcohol or drug abuse patient.[facility] HospitalIn the event this information is protected by the Federal Confidentiality of Alcohol and Drug Abuse Patient Records regulations: The Federal rules restrict any use of the information to criminally investigate or prosecute any alcohol or drug abuse patient.[facility] HospitalIn the event this information is protected by the Federal Confidentiality of Alcohol and Drug Abuse Patient Records regulations: The Federal rules restrict any use of the information to criminally investigate or prosecute any alcohol or drug abuse patient.[facility] HospitalIn the event this information is protected by the Federal Confidentiality of Alcohol and Drug Abuse Patient Records regulations: The Federal rules restrict any use of the information to criminally investigate or prosecute any alcohol or drug abuse patient.[facility] HospitalIn the event this information is protected by the Federal Confidentiality of Alcohol and Drug Abuse Patient Records regulations: The Federal rules restrict any use of the information to criminally investigate or prosecute any alcohol or drug abuse patient.[facility] HospitalIn the event this information is protected by the Federal Confidentiality of Alcohol and Drug Abuse Patient Records regulations: The Federal rules restrict any use of the information to criminally investigate or prosecute any alcohol or drug abuse patient.[facility] HospitalIn the event this information is protected by the Federal Confidentiality of Alcohol and Drug Abuse Patient Records regulations: The Federal rules restrict any use of the information to criminally investigate or prosecute any alcohol or drug abuse patient.[facility] HospitalIn the event this information is protected by the Federal Confidentiality of Alcohol and Drug Abuse Patient Records regulations: The Federal rules restrict any use of the information to criminally investigate or prosecute any alcohol or drug abuse patient.[facility] HospitalIn the event this information is protected by the Federal Confidentiality of Alcohol and Drug Abuse Patient Records regulations: The Federal rules restrict any use of the information to criminally investigate or prosecute any alcohol or drug abuse patient.[facility] HospitalIn the event this information is protected by the Federal Confidentiality of Alcohol and Drug Abuse Patient Records regulations: The Federal rules restrict any use of the information to criminally investigate or prosecute any alcohol or drug abuse patient.[facility] HospitalIn the event this information is protected by the Federal Confidentiality of Alcohol and Drug Abuse Patient Records regulations: The Federal rules restrict any use of the information to criminally investigate or prosecute any alcohol or drug abuse patient.[facility] HospitalIn the event this information is protected by the Federal Confidentiality of Alcohol and Drug Abuse Patient Records regulations: The Federal rules restrict any use of the information to criminally investigate or prosecute any alcohol or drug abuse patient.[facility] HospitalIn the event this information is protected by the Federal Confidentiality of Alcohol and Drug Abuse Patient Records regulations: The Federal rules restrict any use of the information to criminally investigate or prosecute any alcohol or drug abuse patient.[facility] Reason for Visit (unrecogniz ed section and content) Reason Comments New Patient Consult for rectal m ass Reason Comments Patient Education Reason Onset Date Comments Patient Education Opened In Error 05/06/2022 Reason Comments Anal cancer New patient consult Specialty Diagnoses / Procedures Referred By Contac t Referred To Contact Oncology Diagnoses Anal cancer (HCC) Procedures CONSULT TO ONCOLOGY OFFICE/OUTPATIENT [facility] MDM 60-[place] [address] [place] [address] Referral ID Status Reason Start Date Expiration Date V isits Requested Visits Authorized [id number] Closed PCP Requested Referral 05/02/2022 05/02/2023 1 1 Reason Comments Consult Specialty Diagnoses / Procedures Referred By Contac t Referred To Contact Radiation Oncology Diagnoses Anal cancer (HCC) Procedures RAD/ONC CONSULT OFFICE/OUTPATIENT NEW [facility]IGH MDM 60-[place] [id number] [facility] [address] [place] [address] Referral ID Status Reason Start Date Expiration Date V isits Requested Visits Authorized [id number] Closed PCP Requested Referral 05/02/2022 05/02/2023 1 1 Reason Comments Medication Update Reason Comments Care Coordination Antiemetics Reason Comments Anal Cancer 3 week follow up Reason Comments Nutrition Telephone Reason Comments Oral Anti-cancer Agent Education Capecit abine Reason Comments Nutrition Assessment Reason Onset Date Comments Simulation Request Form 05/27/2022 Reason Comments Lab Orders Reason Comments Care Coordination Medication change Reason Onset Date Comments Refill Request 06/18/2022 Reason Comments Care Coordination Oral Anti-Cancer Age nt Follow Up Reason Comments anal cancer Reason Comments Medication Problem Lidocaine on back or danette Reason Comments Radiotherapy On-treatment Visit Reason Comments Medication Authorization Lidocaine/[place] cortisone Gel Reason Comments Art Therapy Reason Comments Anal cancer 1 week follow up Reason Comments Referral Information Cardiology Reason Comments anal cancer Weekly check Reason Comments Phlebotomy Reason Comments Rectal Cancer Reason Comments Care Coordination Letter Request Reason Comments Anal cancer Follow up after scan s Specialty Diagnoses / Procedures Referred By [facility] Referred To Contact MR IMAGING Diagnoses Malignant neoplasm of anus (HCC) Procedures MRI RECTUM WO/W IVCON MRI PELVIS W/O & W/CONTRAST MATERIAL Toribio Michaud MD [address] [place] [address] [place] [address] Mr Imaging Referral ID Status Reason Start Date Expiration Date V isits Requested Visits Authorized [id number] Closed Auto-Generate d Referral 09/22/2022 10/22/2022 1 1 Reason Comments Anal Cancer 1 month follow up Reason Comments Anal cancer Reason Comments Established Patient 3 month follow up , anal cancer surveillance Reason Comments Patient Question Reason Comments Results Reason Comments Anal Cancer 6 month follow up Reason Comments Appointment Reason Comments Orders Specialty Diagnoses / Procedures [facility] To Contact MR IMAGING Diagnoses Malignant neoplasm of anus (HCC) Procedures MRI RECTUM WO/W IVCON MRI PELVIS W/O & W/CONTRAST MATERIAL Toribio Michaud MD [address] [place] [address] [place] [address] Referral ID Status Reason Start Date Expiration Date V isits Requested Visits Authorized [id number] Closed Auto-Generate d Referral 09/16/2023 10/16/2023 1 1 Specialty Diagnoses / Procedures Referred By [facility] Referred To Contact MR IMAGING Diagnoses Malignant neoplasm of anus (HCC) Procedures MRI ABDOMEN WO/W IVCON MRI ABDOMEN W/O & W/CONTRAST MATERIAL Toribio Michaud MD [address] [place] [address] [place] [address] [place] [id number] Referral ID Status Reason Start Date Expiration Date V isits Requested Visits Authorized [id number] Closed Auto-Generate d Referral 09/16/2023 10/16/2023 1 1 Reason Comments Anal Cancer Follow up Reason Comments Follow Up Anal cancer surveill ance Reason Comments Post Radiation Treatment Follow Up Reason Comments Established Patient presents today for e valuation of diarrhea and anal itching. INFORMATION SOURCE (unrecogn ized section and content) DATE CREATED AUTHOR 05/06/2022 [facility] DATE CREATED AUTHOR AUTHOR'S ORGANIZ ATION 07/15/2022 [facility] DATE CREATED AUTHOR AUTHOR'S ORGANIZ ATION 09/05/2022 Garrett Kenney [facility] DATE CREATED AUTHOR AUTHOR'S ORGANIZ ATION 10/16/2022 [facility] DATE CREATED AUTHOR AUTHOR'S ORGANIZ ATION 09/29/2023 [facility] DATE CREATED AUTHOR AUTHOR'S ORGANIZ ATION 12/13/2023 [facility] FOR RECORDS PERTAINING TO PATIENTS WHO ARE OR HAVE BEEN ENROLLED IN A CHEMICAL DEPENDENCY/SUBSTANCEABUSE PROGRAM, SOME INFORMATION MAY BE OMITTED. This clinical summary was aggregated from multiple sources. Caution should be exercised in using it in the provision of clinical care. This summary normalizes information from multiple sources, and as a consequence, information in this document may materially change the coding, format and clinical context of patient data. In addition, data may be omitted in some cases. CLINICAL DECISIONS SHOULD BE BASED ON THE PRIMARY CLINICAL RECORDS. [employer] provides no warranty or guarantee of the accuracy or completeness of information in this document.
== END 2024-01-06 19:30 | disposition home or self-care (01) ==
LOC: LAB 19:29
PROVIDERS: PCP Family Medicine; Visit Provider Obstetrics & Gynecology
DX: Z01.419 Encounter for gynecological examination (general) (routine) without abnormal findings (principal)
CPT/HCPCS: 87624; 88175

== ENCOUNTER 2024-10-22 07:34 | Outpatient (OUT) | payer OTHER, SELFPAY ==
--- OUTSIDE RECORDS SUMMARY | 2024-10-22 07:38 | XMS_ITS | CCD ---
Author Organization [facility] Care Team Providers Care Dielectric Machine Operator Name Role Phone Sondra Liu Primary Care Physician Sondra Liu MD Primary Care Provider PHIL DOUGHERTY Referring Unavailable SONDRA LIU Primary Care Unavailable Paco Bonds MD Unavailable Dean EDUCATION MANAGERS.CLINIQUE COUNTER MANAGER, Gerardo Unavailable Ventura PINTO, Leandra Unavailable [phone] Toribio Michaud MD Unavailable Sondra Liu MD Primary Care Provider [phone] Paco Bonds MD Unavailable [phone] Dean EDUCATION MANAGERS.CLINIQUE COUNTER MANAGER, Gerardo Unavailable Ventura PINTO, Leandra Unavailable Toribio Michaud MD Unavailable DR VITALY VAUGHN Admitting Unavailable NILL, DR HAIDER Attending Unavailable NILL, DR HAIDER Consulting Unavailable FREEDOMY, DR AMARO Primary Care Unavailable LIVE UP Consulting Unavailable KATHY AGUILAR Consulting Unavailable NILL, DR HAIDER Attending Unavailable NILL, DR HAIDER Admitting Unavailable HOY, DR AMARO Primary Care Unavailable NILL, DR [...] Attending Unavailable NOE, DR AMARO Admitting Unavailable HOStefanie, DR AMARO Primary Care Unavailable NOE, DR AMARO Consulting Unavailable NOE, DR AMARO Attending Unavailable WEST, DR PHIL Johnston Consulting Unavailable DK, DR KRISTI Cassidy Consulting Unavailable NILL, DR HAIDER Attending Unavailable NILL, DR HAIDER Admitting Unavailable NILL, DR HAIDER Consulting Unavailable FREEDOMY, DR AMARO Primary Care Unavailable Freedomy, Sondra Referring Unavailable NILL, Vitaly Cassidy Attending Unavailable NILL, Vitaly Cassidy Attending Unavailable NILL, Vitaly Cassidy Attending Unavailable HOY, SONDRA M Primary Care Unavailable TORIBIO MICHAUD Referring Unavailable Ventura PINTO, Leandra Unavailable [phone] TORIBIO MICHAUD Referring Unavailable HOY, SONDRA M Primary Care Unavailable JASWANTTORIBIO MONTGOMERY Referring Unavailable HOY, SONDRA M Primary Care Unavailable Sondra Liu MD Primary Care Provider [phone] RASHI PINON Attending Unavailable Ventura PINTO, Leandra Unavailable TORIBIO MICHAUD Attending Unavailable HOY, SONDRA M Primary Care Unavailable HOY, SONDRA M Primary Care Unavailable TORIBIO MICHAUD Referring Unavailable HOY, SONDRA M Primary Care Unavailable PHIL DOUGHERTY Attending Unavailable PHIL DOUGHERTY Referring Unavailable HOY, SONDRA M Primary Care Unavailable PACO BONDS Attending Unavailable VAMSHI, PACO Referring Unavailable HOY, SONDRA M Primary Care Unavailable PHIL DOUGHERTY Attending Unavailable PHIL DOUGHERTY Referring Unavailable HOY, SONDRA M Primary Care Unavailable GERARDO MCKINNON Attending Unavailable ABHYPETERSONAR, PACO Referring Unavailable HOY, SONDRA M Primary Care Unavailable HOY, SONDRA M Primary Care Unavailable PHIL DOUGHERTY Attending Unavailable HOY, SONDRA M Primary Care Unavailable PHIL DOUGHERTY Attending Unavailable HOY, SONDRA M Primary Care Unavailable Allergies Allergy Classification Reported Allergen(s) Allergy Type Date of Onset Reaction(s) Facility (2 sources) Amoxicillin; Translations: [amoxicillin] Drug Allergy [facility] (disorder) [facility] (2 sources) Sulfonamides (Antibiotic); Translations: [sulfa drugs] Drug allergy [facility] (20 sources) Penicillin G; Translations: [PENICILLIN G] Drug Allergy 4 Unknown [facility] (20 sources) Sulfonamides (Antibiotic); Translations: [SULFA (SULFONAMIDE ANTIBIOTICS)] Drug Allergy 4 Unknown [facility] (2 sources) Penicillins Drug allergy (disorder) 3 [facility] (2 sources) Sulfonamides (Antibiotic) Drug allergy (disorder) 3 [facility] Medications Current Medications Medication Drug Class(es) Dates Sig (Normalized) Sig (Original) Acetaminophen / diphenhydrAMINE (20 sources) Histamine-1 Receptor Antagonist acetaminophen/diphe nhydramine (TYLENOL PM EXTRA STRENGTH ORAL) Take 500 mg by mouth as needed. Active acetaminophen/di phenhydramine (TYLENOL PM EXTRA STRENGTH ORAL) Take 500 mg by mouth as needed. 0 Active Comment on above: Take 500 mg by mouth as needed. Calcium (12 sources) Phosphate Binder, Calcium CALCIU M ORAL Take by mouth once daily. Active CALCIUM ORAL Trevor e by mouth once daily. 0 Active Comment on above: Take by mouth once d aily. cholecalciferol, vitamin D3, (VITAMIN D3 ORAL) (12 sources) cholecalciferol, vitamin D3, (VITAMIN D3 ORAL) Take by mouth once daily. Active cholecalciferol, vitamin D3, (VITAMIN D3 ORAL) Take by mouth once daily. 0 Active Comment on above: Take by mouth once d aily. fludrocortisone acetate 0.1 mg oral tablet (20 sources) Start: 2 take 0.5 tablet by mouth twice daily fludrocortisone (FLORINEF) 0.1 mg tablet TAKE 0.5 TABLET BY MOUTH TWICE A DAY 03/05/2022 Active Start: 02-15-2022 take 0.05 mg by mout h twice daily fludrocortisone 0.1 mg Tab 0.05 mg = 0.5 tab(s), Oral, BID, Refills(s) 0 Start Date: 02/15/22 Status: Ordered Comment on above: TAKE 0.5 TABLET BY M OUTH TWICE A DAY hydrocortisone acetate 0.0055 mg/mg / lidocaine hydrochloride 0.028 mg/mg rectal gel (20 sources) Antiarrhythmic, Corticosteroid, Amide Local Anesthetic Start: 2 Lidocaine-Hydrocort isone-Aloe 2.8-0.55 % gel Use 1 Applicator by RECTAL route twice daily as needed. 100 g 06/28/2022 Active Comment on above: Use 1 Applicator by RECTAL route twice daily as needed. Multi Vitamins oral tablet (1 source) Start: 2 take 1 tablet by mouth once daily Multi Vitamins oral tablet 1 tab(s), Oral, Daily, Refill(s) 0 Start Date: 02/20/22 Status: Ordered multivit-min/ferrous fumarate (MULTI VITAMIN ORAL) (12 sources) multivit-min/teresita rou s fumarate (MULTI VITAMIN ORAL) Take by mouth once daily. Active multivit-min/teresita ashli fumarate (MULTI VITAMIN ORAL) Take by mouth once daily. 0 Active Comment on above: Take by mouth once d aily. multivitamin tablet (20 sources) take 1 tablet by mouth once daily multivitamin tablet Take 1 tablet by mouth once daily. Active take 1 tablet by mouth once gina y multivitamin tablet Take 1 tablet by mouth once daily. 0 Active Comment on above: Take 1 tablet by hans th once daily. ondansetron 8 mg oral tablet (20 sources) Serotonin-3 Receptor Antagonist Start: 2 take 1 tablet by mouth every eight [...] necessary precautions to avoid constipation. 30 tablet 06/27/2022 10/28/2022 Discontinued Comment on above: Take [...] 23 diphenhydrAMINE (BENADRYL) 12.5 mg/5 mL liquid 06/24/2022 10/28/2022 Discontinued diphenhydrAMINE 12.5 mg/5 mL lidocaine visc 2% MAALOX 200-200-20 mg/5 mL nystatin prednisoLONE 15 mg/5 mL oral liquid 1:1:1:1:1 (CPD) (20 sources) Start: 06-24-20 End: 10-29-19 take 5 mL by mouth every six [...] unaffected area first for reaction. 30 mL 06/27/2022 10/28/2022 Discontinued Comment on above: Apply [...] female climacteric states] 02-10-2023 Chronic Other aftercare (3 sources) History of malignant neoplasm of anus; [...] Diarrhea; Translations: [Diarrhea, unspecified] 12-10-2023 Episodic Other inflammatory condition of skin (1 source) Pruritus ani; Translations: [Pruritus ani] 12-10-2023 Episodic Other nervous system disorders (1 source) [...] of anal cancer] Onset: 07-11-2023 Episodic Other gastrointestinal disorders (1 source) Diarrhea, unspecified; Translations: [Diarrhea, unspecified type] Onset: 12-12-2023 Episodic Other inflammatory condition of skin (1 source) Pruritus ani; Translations: [Anal itching] Onset: 12-12-2023 Episodic Residual codes; unclassified (4 sources) Localized edema; Translations: [LOCALIZED EDEMA] Onset: 12-28-2021 Episodic Results Test Name Value Interpretation Reference Range Facility CNOVon 05-28-2024 CNOV Office Visit ([facility] ) KIRT REYNA ([id number]) 1970 F Date Time Provider Department 05/28/24 3:40 PM PHIL DOUGHERTY [facility] During your visit today, we recorded the following information about you: Pulse Blood pressure Weight Height 92/minute 141/65 82.1 kg 1.702 m Phil Dougherty MD 05/30/2024 10:58 PM Signed COLORECTAL SURGERY May 28, 2024 Kirt Reyna 54 year old Chief Complaint: anal cancer surveillance History of Present Illness: Kirt Reyna is a 54 year old female presents today for anal cancer surveillance. She was last seen in office 12/12/23 for diarrhea and anal itching. Oncology - Dr. Bonds Radiation oncology - Dr. Michaud CT chest 10/01/23 1. Stable subcentimeter pulmonary nodules which are likely benign. 2. No significant thoracic adenopathy. MRI abdomen 09/29/23 No metastatic disease in the abdomen. 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 No metastatic disease in the pelvis. Doing well. No complaints. Normal bowel movements PAST MEDICAL HISTORY Diagnosis Date Hiatal hernia [...] Never Smokeless tobacco: Never Vaping Use Vaping status: Never Used Substance Use Topics Alcohol use: No Drug use: No Physical Exam: BP 141/65 (BP Site: Left Arm, BP Position: Sitting) Pulse 92 Ht 170.2 cm (5' 7 ) Wt 82.1 kg (181 lb) SpO2 100% BMI 28.35 kg/m? General Appearance: Well appearing, alert, in no acute distress, well-hydrated, well nourished. Anorectal: External exam reveals no lesions. Digital rectal exam reveals no gross blood or masses Occupational Health And Safety Manager present: Yes, Padmini Garcia Anoscopy: The patient was placed in chest-knee position. After digital exam with a lubricated finger, the scope was easily inserted. Posterior scar noted. Otherwise normal mucosa was noted. Anoscopy completed. The sensitive examination was discussed with the Patient or Patient's Authorized Educational Coordinator. As applicable, any other physician, advance practice provider, medical student, or other health professional student that will be observing or involved in the sensitive examination for educational or training purposes was discussed with the Patient or Authorized Educational Coordinator. The Patient or Authorized Educational Coordinator has agreed to proceed with the sensitive examination. (Sensitive examination includes inspection and/or palpation of the breasts, pelvis, prostate and anorectal regions) Assessment Assessment and Plan: Kirt Reyna is a 54 year old female with anal cancer status post chemoradiation with no evidence of residual disease. She has imaging scheduled for October. She will return to see me in 6 months for another inguinal node and anoscopic exam Medical Decision Making: Data Reviewed: Tests AND Documents Reviewed/ordered: Review of prior notes from myself Review of Pathology Review of Imaging: CT Abdomen, CT Pelvis, MRI Pelvis Review of Labs: CBC, BMP I have independently interpreted: CT Abdomen, CT Pelvis, MRI Pelvis Risk of morbidity, mortality and/or complications of treatment plan: high Phil Dougherty MD Colorectal Surgery Referring Provider: PHIL DOUGHERTY [[id number]] Allergies As of Date: 05/28/2024 Noted Allergy Reaction PENICILLIN G 08/23/2013 16 - Unknown SULFA (SULFONAMIDE ANTIBIOTICS) 08/23/2013 16 - Unknown Date Reviewed: 05/28/2024 Reviewed by: Nadya Brunner O[facility] - Fully Assessed Primary Visit Diagnosis:Encounter for follow-up surveillance of anal cancer (more content not included)... Normal [facility] CBC W Auto Differential pane l (Bld)on 04-26-2024 Basophils (Bld) [#/Vol] 10*3/uL Normal <0.11 [facility] Comment on above: Order Comment: Speci men Type: BLOOD SPECIMENOrdering Facility: [facility] Address: [address] [place] [address] Performed By: #### 5 7021-8 ####[facility] LABCLIA [id number] [place] [address] Basophils/100 WBC (Bld) 0.2 % Normal [facility] Comment on above: Order Comment: Speci men Type: BLOOD SPECIMENOrdering Facility: [facility] Address: [address] [place] [address] Performed By: #### 5 7021-8 ####[facility] LABCLIA [id number] [place] [address] Differential cell count method Nom (Bld) Auto Normal [facility] Comment on above: Order Comment: Speci men Type: BLOOD SPECIMENOrdering Facility: [facility] Address: [address] [place] [address] Performed By: #### 5 7021-8 ####[facility] LABCLIA [id number] [place] [address] Eosinophils (Bld) [#/Vol] 0.09 10*3/uL Normal <0.46 [facility] Comment on above: Order Comment: Speci men Type: BLOOD SPECIMENOrdering Facility: [facility] Address: [address] [place] [address] Performed By: #### 5 7021-8 ####[facility] LABCLIA [id number] [place] [address] Eosinophils/100 WBC (Bld) 1.9 % Normal [facility] Comment on above: Order Comment: Speci men Type: BLOOD SPECIMENOrdering Facility: [facility] Address: [address] [place] [address] Performed By: #### 5 7021-8 ####[facility] LABCLIA [id number] [place] [address] Erythrocyte distribution width (RBC) [Ratio] 12.9 % Normal 11.5-15.0 [facility] Comment on above: Order Comment: Speci men Type: BLOOD SPECIMENOrdering Facility: [facility] Address: [address] [place] [address] Performed By: #### 5 7021-8 ####[facility] LABCLIA [id number] [place] [address] Hematocrit (Bld) [Volume fraction] 39.5 % Normal 36.0-46.0 [facility] Comment on above: Order Comment: Speci men Type: BLOOD SPECIMENOrdering Facility: [facility] Address: [address] [place] [address] Performed By: #### 5 7021-8 ####[facility] LABCLIA [id number] [place] [address] Hemoglobin (Bld) [Mass/Vol] 13.5 g/dL Normal 11.5-15.5 [facility] Comment on above: Order Comment: Speci men Type: BLOOD SPECIMENOrdering Facility: [facility] Address: [address] [place] [address] Performed By: #### 5 7021-8 ####[facility] LABCLIA [id number] [place] [address] Immature granulocytes (Bld) [#/Vol] 10*3/uL Normal <0.10 [facility] Comment on above: Order Comment: Speci men Type: BLOOD SPECIMENOrdering Facility: [facility] Address: [address] [place] [address] Performed By: #### 5 7021-8 ####[facility] LABCLIA [id number] [place] [address] Immature granulocytes/100 WBC (Bld) 0.2 % Normal [facility] Comment on above: Order Comment: Speci men Type: BLOOD SPECIMENOrdering Facility: [facility] Address: [address] [place] [address] Performed By: #### 5 7021-8 ####[facility] LABCLIA [id number] [place] [address] Lymphocytes (Bld) [#/Vol] 1.26 10*3/uL Normal 1.00-4.00 [facility] Comment on above: Order Comment: Speci men Type: BLOOD SPECIMENOrdering Facility: [facility] Address: [address] [place] [address] Performed By: #### 5 7021-8 ####[facility] LABCLIA [id number] [place] [address] Lymphocytes/100 WBC (Bld) 26.4 % Normal [facility] Comment on above: Order Comment: Speci men Type: BLOOD SPECIMENOrdering Facility: [facility] Address: [address] [place] [address] Performed By: #### 5 7021-8 ####[facility] LABCLIA [id number] [place] [address] MCH (RBC) [Entitic mass] 30.1 pg Normal 26.0-34.0 [facility] Comment on above: Order Comment: Speci men Type: BLOOD SPECIMENOrdering Facility: [facility] Address: [address] [place] [address] Performed By: #### 5 7021-8 ####[facility] LABCLIA [id number] [place] [address] MCHC (RBC) [Mass/Vol] 34.2 g/dL Normal 30.5-36.0 [facility] Comment on above: Order Comment: Speci men Type: BLOOD SPECIMENOrdering Facility: [facility] Address: [address] [place] [address] Performed By: #### 5 7021-8 ####[facility] LABCLIA [id number] [place] [address] MCV (RBC) [Entitic vol] 88.2 fL Normal 80.0-100.0 [facility] Comment on above: Order Comment: Speci men Type: BLOOD SPECIMENOrdering Facility: [facility] Address: [address] [place] [address] Performed By: #### 5 7021-8 ####[facility] LABCLIA [id number] [place] [address] Monocytes (Bld) [#/Vol] 0.45 10*3/uL Normal <0.87 [facility] Comment on above: Order Comment: Speci men Type: BLOOD SPECIMENOrdering Facility: [facility] Address: [address] [place] [address] Performed By: #### 5 7021-8 ####[facility] LABCLIA [id number] [place] [address] Monocytes/100 WBC (Bld) 9.4 % Normal [facility] Comment on above: Order Comment: Speci men Type: BLOOD SPECIMENOrdering Facility: [facility] Address: [address] [place] [address] Performed By: #### 5 7021-8 ####[facility] LABCLIA [id number] [place] [address] Neutrophils (Bld) [#/Vol] 2.95 10*3/uL Normal 1.45-7.50 [facility] Comment on above: Order Comment: Speci men Type: BLOOD SPECIMENOrdering Facility: [facility] Address: [address] [place] [address] Performed By: #### 5 7021-8 ####[facility] LABCLIA [id number] [place] [address] Neutrophils/100 WBC (Bld) 61.9 % Normal [facility] Comment on above: Order Comment: Speci men Type: BLOOD SPECIMENOrdering Facility: [facility] Address: [address] [place] [address] Performed By: #### 5 7021-8 ####[facility] LABCLIA [id number] [place] [address] Nucleated RBC (Bld) [#/Vol] 10*3/uL Normal <0.01 [facility] Comment on above: Order Comment: Speci men Type: BLOOD SPECIMENOrdering Facility: [facility] Address: [address] [place] [address] Performed By: #### 5 7021-8 ####[facility] LABCLIA [id number] [place] [address] Nucleated RBC/100 WBC (Bld) [Ratio] 0.0 /100 WBC Normal [facility] Comment on above: Order Comment: Speci men Type: BLOOD SPECIMENOrdering Facility: [facility] Address: [address] [place] [address] Performed By: #### 5 7021-8 ####[facility] LABCLIA [id number] [place] [address] Platelet mean volume (Bld) [Entitic vol] 9.9 fL Normal 9.0-12.7 [facility] Comment on above: Order Comment: Speci men Type: BLOOD SPECIMENOrdering Facility: [facility] Address: [address] [place] [address] Performed By: #### 5 7021-8 ####[facility] LABIA [id number] [place] [address] Platelets (Bld) [#/Vol] 236 10*3/uL Normal 150-400 [facility] Comment on above: Order Comment: Speci men Type: BLOOD SPECIMENOrdering Facility: [facility] Address: [address] [place] [address] Performed By: #### 5 7021-8 ####[facility] [id number] [place] [address] RBC (Bld) [#/Vol] 4.48 10*6/uL Normal 3.90-5.20 [facility] Comment on above: Order Comment: Speci men Type: BLOOD SPECIMENOrdering Facility: [facility] Address: [address] [place] [address] Performed By: #### 5 7021-8 ####[facility] LABIA [id number] [place] [address] WBC (Bld) [#/Vol] 4.77 10*3/uL Normal 3.70-11.00 [facility] Comment on above: Order Comment: Speci men Type: BLOOD SPECIMENOrdering Facility: [facility] Address: [address] [place] [address] Performed By: #### 5 7021-8 ####[facility] LABIA [id number] [place] [address] CNOVSPon 04-26-2024 CNOVSP Visit ([facility]) Office ([facility]) KIRT REYNA ([id number]) 1970 F Date Time Provider Department 04/26/24 3:00 PM GERARDO MCKINNON During your visit today, we recorded the following information about you: Temperature Pulse Respiration Blood pressure 97.9 degrees 89/minute 16/minute 129/72 Weight 82.2 kg Gerardo Mckinnon APRN.CLINIQUE COUNTER MANAGER 04/26/2024 9:05 PM Signed NAME: Kirt Reyna CLINIC NO.: [id number] DATE OF SERVICE: APRIL 26, 2024 (Dean) Some elements in this clinic note that are critical to medical decision making have been carefully reviewed and included from a prior clinic note dated: October 27, 2023 (Vamshi) Referring Provider: Dr. Phil Dougherty Additional Clinicians involved in Kirt Reyna's care: Dr. Sondra Liu, Dr. Vitaly Vaughn, Dr. Toribio Michaud DIAGNOSIS: Anal Cancer ASSESSMENT: 54 year old woman with POTS diagnosed (04/2022) with an anal lesion consistent [...] [facility]aud Labs on return - CBC, CMP Follow up as scheduled with Dr. Dougherty Repeat MRI and CT chest, abdomen and pelvis is scheduled for 10/26/2024. - HPI: CASE HISTORY: Reverse Chronological Order [...] diagnosed just as COVID-19 hit. Updated Visit, Lis (more content not included)... Normal [facility] Comprehensive metabolic 2000 panelon 04-26-2024 Albumin [Mass/Vol] 4.5 g/dL Normal 3.9-4.9 [facility] Comment on above: Order Comment: Speci men Type: BLOOD SPECIMENOrdering Facility: [facility] Address: [address] [place] [address] Performed By: #### 2 4323-8 ####[facility] LABCLIA [id number] [place] [address] ALP [Catalytic activity/Vol] 107 U/L Normal 34-123 [facility] Comment on above: Order Comment: Speci men Type: BLOOD SPECIMENOrdering Facility: [facility] Address: [address] [place] [address] Performed By: #### 2 4323-8 ####[facility] LABCLIA [id number] [place] [address] ALT [Catalytic activity/Vol] 19 U/L Normal 7-38 [facility] Comment on above: Order Comment: Speci men Type: BLOOD SPECIMENOrdering Facility: [facility] Address: [address] [place], [place] [address] Performed By: #### 2 4323-8 ####[facility] LABCLIA [id number] [place] [address] Anion gap [Moles/Vol] 12 mmol/L Normal 8-15 [facility] Comment on above: Order Comment: Speci men Type: BLOOD SPECIMENOrdering Facility: [facility] Address: [address] [place], [place] [address] Performed By: #### 2 4323-8 ####[facility] LABCLIA [id number] [place] [address] AST [Catalytic activity/Vol] 22 U/L Normal 13-35 [facility] Comment on above: Order Comment: Speci men Type: BLOOD SPECIMENOrdering Facility: [facility] Address: [address] [place] [address] Performed By: #### 2 4323-8 ####[facility] LABCLIA [id number] [place] [address] Bilirubin [Mass/Vol] 0.3 mg/dL Normal 0.2-1.3 [facility] Comment on above: Order Comment: Speci men Type: BLOOD SPECIMENOrdering Facility: [facility] Address: [address] [place], [place] [address] Performed By: #### 2 4323-8 ####[facility] LABCLIA [id number] [place] [address] Calcium [Mass/Vol] 9.4 mg/dL Normal 8.5-10.2 [facility] Comment on above: Order Comment: Speci men Type: BLOOD SPECIMENOrdering Facility: [facility] Address: [address] [place], [place] [address] Performed By: #### 2 4323-8 ####[facility] LABCLIA [id number] [place] [address] Chloride [Moles/Vol] 101 mmol/L Normal 98-107 [facility] Comment on above: Order Comment: Speci men Type: BLOOD SPECIMENOrdering Facility: [facility] Address: [address] [place] [address] Performed By: #### 2 4323-8 ####[facility] LABCLIA [id number] [place] [address] CO2 [Moles/Vol] 26 mmol/L Normal 22-30 [facility] Comment on above: Order Comment: Speci men Type: BLOOD SPECIMENOrdering Facility: [facility] Address: [address] [place] [address] Performed By: #### 2 4323-8 ####[facility] LABCLIA [id number] [place] [address] Creatinine [Mass/Vol] 0.69 mg/dL Normal 0.58-0.96 [facility] Comment on above: Order Comment: Speci men Type: BLOOD SPECIMENOrdering Facility: [facility] Address: [address] [place] [address] Performed By: #### 2 4323-8 ####[facility] LABCLIA [id number] [place] [address] Creatinine and Glomerular filtration rate.predicted panel (S/P/Bld) 103 mL/min/1.73m??? Normal >=60 [facility] Comment on above: Order Comment: Speci men Type: BLOOD SPECIMENOrdering Facility: [facility] Address: [address] [place] [address] Result Comment: Alma mated Glomerular Filtration Rate [...] actual GFR. Performed By: #### 2 4323-8 ####[facility] LABCLIA [id number] [place] [address] Glucose [Mass/Vol] 101 mg/dL High 74-99 [facility] Comment on above: Order Comment: Speci men Type: BLOOD SPECIMENOrdering Facility: [facility] Address: [address] [place] [address] Result Comment: The [place] Diabetes Association (ADA) provides guidance for cutoff [...] Standards of Medical Care in Diabetes 2016, [place] Diabetes Association. Diabetes Care. 2016.39(Suppl 1). Performed By: #### 2 4323-8 ####[facility] LABCLIA [id number] [place] [address] Potassium [Moles/Vol] 4.1 mmol/L Normal 3.7-5.1 [facility] Comment on above: Order Comment: Speci men Type: BLOOD SPECIMENOrdering Facility: [facility] Address: [address] [place] [address] Performed By: #### 2 4323-8 ####[facility] LABCLIA [id number] [place] [address] Protein [Mass/Vol] 7.6 g/dL Normal 6.3-8.0 [facility] Comment on above: Order Comment: Speci men Type: BLOOD SPECIMENOrdering Facility: [facility] Address: [address] [place] [address] Performed By: #### 2 4323-8 ####[facility] LABCLIA [id number] [place] [address] Sodium [Moles/Vol] 139 mmol/L Normal 136-144 [facility] Comment on above: Order Comment: Speci men Type: BLOOD SPECIMENOrdering Facility: [facility] Address: [address] [place] [address] Performed By: #### 2 4323-8 ####[facility] LABCLIA [id number] [place] [address] Urea nitrogen [Mass/Vol] 19 mg/dL Normal 7-21 [facility] Comment on above: Order Comment: Speci men Type: BLOOD SPECIMENOrdering Facility: [facility] Address: [address] [place] [address] Performed By: #### 2 4323-8 ####[facility] LABCLIA [id number] [place] [address] CNOVon 12-12-2023 CNOV Office Visit ([facility] ) KIRT REYNA ([id number]) 1970 F Date Time Provider Department 12/12/23 2:00 PM PHIL DOUGHERTY [facility] During your visit today, we recorded the [...] exam reveals no gross blood or masses Occupational Health And Safety Manager present: Yes, Padmini Garcia Anoscopy: The patient [...] by hans (more content not included)... Normal [facility] CNOVon 10-31-2023 CNOV Office Visit ([facility] ) KIRT REYNA ([id number]) 1970 F Date Time Provider Department 10/31/23 4:00 PM PHIL DOUGHERTY [facility] During your visit today, we recorded the [...] exam reveals no gross blood or masses Occupational Health And Safety Manager present: Yes, Padmini Garcia Anoscopy: The patient [...] Phil Dougherty MD Colorectal Surgery Padmini Garcia, [facility] 10/31/2023 4:13 PM Signed What is the [...] NEEDED FOR (more content not included)... Normal [facility] CBC W Auto Differential pane l (Bld)on 10-27-2023 Basophils (Bld) [#/Vol] 10*3/uL Normal <0.11 [facility] Comment on above: Order Comment: Speci men Type: BLOOD SPECIMENOrdering Facility: [facility] Address: [address] [place] [address] Performed By: #### 5 7021-8 ####[facility] LABCLIA [id number] [place] [address] Basophils/100 WBC (Bld) 0.2 % Normal [facility] Comment on above: Order Comment: Speci men Type: BLOOD SPECIMENOrdering Facility: [facility] Address: [address] [place] [address] Performed By: #### 5 7021-8 ####[facility] LABCLIA [id number] [place] [address] Differential cell count method Nom (Bld) Auto Normal [facility] Comment on above: Order Comment: Speci men Type: BLOOD SPECIMENOrdering Facility: [facility] Address: [address] [place] [address] Performed By: #### 5 7021-8 ####[facility] LABCLIA [id number] [place] [address] Eosinophils (Bld) [#/Vol] 0.12 10*3/uL Normal <0.46 [facility] Comment on above: Order Comment: Speci men Type: BLOOD SPECIMENOrdering Facility: [facility] Address: [address] [place] [address] Performed By: #### 5 7021-8 ####[facility] LABCLIA [id number] [place] [address] Eosinophils/100 WBC (Bld) 2.5 % Normal [facility] Comment on above: Order Comment: Speci men Type: BLOOD SPECIMENOrdering Facility: [facility] Address: [address] [place] [address] Performed By: #### 5 7021-8 ####[facility] LABCLIA [id number] [place] [address] Erythrocyte distribution width (RBC) [Ratio] 12.9 % Normal 11.5-15.0 [facility] Comment on above: Order Comment: Speci men Type: BLOOD SPECIMENOrdering Facility: [facility] Address: [address] [place] [address] Performed By: #### 5 7021-8 ####[facility] LABCLIA [id number] [place] [address] Hematocrit (Bld) [Volume fraction] 38.0 % Normal 36.0-46.0 [facility] Comment on above: Order Comment: Speci men Type: BLOOD SPECIMENOrdering Facility: [facility] Address: [address] [place] [address] Performed By: #### 5 7021-8 ####[facility] LABCLIA [id number] [place] [address] Hemoglobin (Bld) [Mass/Vol] 12.8 g/dL Normal 11.5-15.5 [facility] Comment on above: Order Comment: Speci men Type: BLOOD SPECIMENOrdering Facility: [facility] Address: [address] [place] [address] Performed By: #### 5 7021-8 ####[facility] LABCLIA [id number] [place] [address] Immature granulocytes (Bld) [#/Vol] 10*3/uL Normal <0.10 [facility] Comment on above: Order Comment: Speci men Type: BLOOD SPECIMENOrdering Facility: [facility] Address: [address] [place] [address] Performed By: #### 5 7021-8 ####[facility] LABCLIA [id number] [place] [address] Immature granulocytes/100 WBC (Bld) 0.2 % Normal [facility] Comment on above: Order Comment: Speci men Type: BLOOD SPECIMENOrdering Facility: [facility] Address: [address] [place] [address] Performed By: #### 5 7021-8 ####[facility] LABCLIA [id number] [place] [address] Lymphocytes (Bld) [#/Vol] 1.18 10*3/uL Normal 1.00-4.00 [facility] Comment on above: Order Comment: Speci men Type: BLOOD SPECIMENOrdering Facility: [facility] Address: [address] [place] [address] Performed By: #### 5 7021-8 ####[facility] LABCLIA [id number] [place] [address] Lymphocytes/100 WBC (Bld) 24.9 % Normal [facility] Comment on above: Order Comment: Speci men Type: BLOOD SPECIMENOrdering Facility: [facility] Address: [address] [place] [address] Performed By: #### 5 7021-8 ####[facility] LABCLIA [id number] [place] [address] MCH (RBC) [Entitic mass] 29.5 pg Normal 26.0-34.0 [facility] Comment on above: Order Comment: Speci men Type: BLOOD SPECIMENOrdering Facility: [facility] Address: [address] [place] [address] Performed By: #### 5 7021-8 ####[facility] LABCLIA [id number] [place] [address] MCHC (RBC) [Mass/Vol] 33.7 g/dL Normal 30.5-36.0 [facility] Comment on above: Order Comment: Speci men Type: BLOOD SPECIMENOrdering Facility: [facility] Address: [address] [place] [address] Performed By: #### 5 7021-8 ####[facility] LABCLIA [id number] [place] [address] MCV (RBC) [Entitic vol] 87.6 fL Normal 80.0-100.0 [facility] Comment on above: Order Comment: Speci men Type: BLOOD SPECIMENOrdering Facility: [facility] Address: [address] [place] [address] Performed By: #### 5 7021-8 ####[facility] LABCLIA [id number] [place] [address] Monocytes (Bld) [#/Vol] 0.43 10*3/uL Normal <0.87 [facility] Comment on above: Order Comment: Speci men Type: BLOOD SPECIMENOrdering Facility: [facility] Address: [address] [place] [address] Performed By: #### 5 7021-8 ####[facility] LABCLIA [id number] [place] [address] Monocytes/100 WBC (Bld) 9.1 % Normal [facility] Comment on above: Order Comment: Speci men Type: BLOOD SPECIMENOrdering Facility: [facility] Address: [address] [place] [address] Performed By: #### 5 7021-8 ####[facility] LABCLIA [id number] [place] [address] Neutrophils (Bld) [#/Vol] 2.99 10*3/uL Normal 1.45-7.50 [facility] Comment on above: Order Comment: Speci men Type: BLOOD SPECIMENOrdering Facility: [facility] Address: [address] [place] [address] Performed By: #### 5 7021-8 ####[facility] LABCLIA [id number] [place] [address] Neutrophils/100 WBC (Bld) 63.1 % Normal [facility] Comment on above: Order Comment: Speci men Type: BLOOD SPECIMENOrdering Facility: [facility] Address: [address] [place] [address] Performed By: #### 5 7021-8 ####[facility] LABCLIA [id number] [place] [address] Nucleated RBC (Bld) [#/Vol] 10*3/uL Normal <0.01 [facility] Comment on above: Order Comment: Speci men Type: BLOOD SPECIMENOrdering Facility: [facility] Address: [address] [place] [address] Performed By: #### 5 7021-8 ####[facility] LABCLIA [id number] [place] [address] Nucleated RBC/100 WBC (Bld) [Ratio] 0.0 /100 WBC Normal [facility] Comment on above: Order Comment: Speci men Type: BLOOD SPECIMENOrdering Facility: [facility] Address: [address] [place] [address] Performed By: #### 5 7021-8 ####[facility] LABCLIA [id number] [place] [address] Platelet mean volume (Bld) [Entitic vol] 9.9 fL Normal 9.0-12.7 [facility] Comment on above: Order Comment: Speci men Type: BLOOD SPECIMENOrdering Facility: [facility] Address: [address] [place] [address] Performed By: #### 5 7021-8 ####[facility] LABCLIA [id number] [place] [address] Platelets (Bld) [#/Vol] 238 10*3/uL Normal 150-400 [facility] Comment on above: Order Comment: Speci men Type: BLOOD SPECIMENOrdering Facility: [facility] Address: [address] [place] [address] Performed By: #### 5 7021-8 ####[facility] LABCLIA [id number] [place] [address] RBC (Bld) [#/Vol] 4.34 10*6/uL Normal 3.90-5.20 [facility] Comment on above: Order Comment: Speci men Type: BLOOD SPECIMENOrdering Facility: [facility] Address: [address] [place] [address] Performed By: #### 5 7021-8 ####[facility] LABIA [id number] [place] [address] WBC (Bld) [#/Vol] 4.74 10*3/uL Normal 3.70-11.00 [facility] Comment on above: Order Comment: Speci men Type: BLOOD SPECIMENOrdering Facility: [facility] Address: [address] [place] [address] Performed By: #### 5 7021-8 ####[facility] LABIA [id number] [place] [address] CNOVon 10-27-2023 CNOV Office Visit ([facility] ) KIRT REYNA ([id number]) 1970 F Date Time Provider Department 10/27/23 3:00 PM TORIBIO MICHAUD During your visit today, we recorded the following information about you: Toribio Michaud MD 11/11/2023 5:24 AM Addendum Radiation Oncology - Follow Up Note PATIENT NAME: Kirt Reyna PATIENT DIAGNOSIS/PATIENT IDENTIFICATION: Ms. 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 [...] Ms. Reyna is a 53-year-old woman with nY3C3L8 squamous cell carcinoma of the anal canal. [...] which included preparing to see the patient, [id number] patient care, and counseling and educating the [...] SULFA (SULFONAMIDE (more content not included)... Normal [facility] CNOVSPon 10-27-2023 CNOVSP Visit ([facility]) Office ([facility]) KIRT REYNA ([id number]) 1970 F Date Time Provider Department 10/27/23 2:15 PM PACO BONDS During your visit today, we recorded the following information about you: Temperature Pulse Respiration Blood pressure 97 degrees 93/minute 16/minute 144/65 Weight Height 80.4 kg 1.702 m Paco Bonds MD 10/28/2023 2:27 PM Signed NAME: Kirt Reyna CLINIC NO.: [id number] DATE OF SERVICE: October 27, 2023 (Vamshi) [...] be starting (more content not included)... Normal [facility] Comprehensive metabolic 2000 panelon 10-27-2023 Albumin [Mass/Vol] 4.2 g/dL Normal 3.9-4.9 [facility] Comment on above: Order Comment: Speci men Type: BLOOD SPECIMENOrdering Facility: [facility] Address: [address] [place] [address] Performed By: #### 2 4323-8 ####[facility] LABCLIA [id number] [place] [address] ALP [Catalytic activity/Vol] 108 U/L Normal 34-123 [facility] Comment on above: Order Comment: Speci men Type: BLOOD SPECIMENOrdering Facility: [facility] Address: [address] [place] [address] Performed By: #### 2 4323-8 ####[facility] LABCLIA [id number] [place] [address] ALT [Catalytic activity/Vol] 20 U/L Normal 7-38 [facility] Comment on above: Order Comment: Speci men Type: BLOOD SPECIMENOrdering Facility: [facility] Address: [address] [place], [place] [address] Performed By: #### 2 4323-8 ####[facility] LABCLIA [id number] [place] [address] Anion gap [Moles/Vol] 11 mmol/L Normal 9-18 [facility] Comment on above: Order Comment: Speci men Type: BLOOD SPECIMENOrdering Facility: [facility] Address: [address] [place], [place] [address] Performed By: #### 2 4323-8 ####[facility] LABCLIA [id number] [place] [address] AST [Catalytic activity/Vol] 22 U/L Normal 13-35 [facility] Comment on above: Order Comment: Speci men Type: BLOOD SPECIMENOrdering Facility: [facility] Address: [address] [place] [address] Performed By: #### 2 4323-8 ####[facility] LABCLIA [id number] [place] [address] Bilirubin [Mass/Vol] 0.2 mg/dL Normal 0.2-1.3 [facility] Comment on above: Order Comment: Speci men Type: BLOOD SPECIMENOrdering Facility: [facility] Address: [address] [place] [address] Performed By: #### 2 4323-8 ####[facility] LABCLIA [id number] [place] [address] Calcium [Mass/Vol] 9.7 mg/dL Normal 8.5-10.2 [facility] Comment on above: Order Comment: Speci men Type: BLOOD SPECIMENOrdering Facility: [facility] Address: [address] [place] [address] Performed By: #### 2 4323-8 ####[facility] LABCLIA [id number] [place] [address] Chloride [Moles/Vol] 102 mmol/L Normal 97-105 [facility] Comment on above: Order Comment: Speci men Type: BLOOD SPECIMENOrdering Facility: [facility] Address: [address] [place] [address] Performed By: #### 2 4323-8 ####[facility] LABCLIA [id number] [place] [address] CO2 [Moles/Vol] 26 mmol/L Normal 22-30 [facility] Comment on above: Order Comment: Speci men Type: BLOOD SPECIMENOrdering Facility: [facility] Address: [address] [place] [address] Performed By: #### 2 4323-8 ####[facility] LABCLIA [id number] [place] [address] Creatinine [Mass/Vol] 0.68 mg/dL Normal 0.58-0.96 [facility] Comment on above: Order Comment: Speci men Type: BLOOD SPECIMENOrdering Facility: [facility] Address: [address] [place] [address] Performed By: #### 2 4323-8 ####[facility] LABCLIA [id number] [place] [address] Creatinine and Glomerular filtration rate.predicted panel (S/P/Bld) 104 mL/min/1.73m??? Normal >=60 [facility] Comment on above: Order Comment: Speci men Type: BLOOD SPECIMENOrdering Facility: [facility] Address: [address] [place] [address] Result Comment: Alma mated Glomerular Filtration Rate [...] actual GFR. Performed By: #### 2 4323-8 ####[facility] LABCLIA [id number] [place] [address] Glucose [Mass/Vol] 126 mg/dL High 74-99 [facility] Comment on above: Order Comment: Speci men Type: BLOOD SPECIMENOrdering Facility: [facility] Address: [address] [place] [address] Result Comment: The [place] Diabetes Association (ADA) provides guidance for cutoff [...] Standards of Medical Care in Diabetes 2016, [place] Diabetes Association. Diabetes Care. 2016.39(Suppl 1). Performed By: #### 2 4323-8 ####[facility] LABCLIA [id number] [place] [address] Potassium [Moles/Vol] 3.7 mmol/L Normal 3.7-5.1 [facility] Comment on above: Order Comment: Shashi love Type: BLOOD SPECIMENOrdering Facility: [facility] Address: [address] [place] [address] Performed By: #### 2 4323-8 ####[facility] LABCLIA [id number] [place] [address] Protein [Mass/Vol] 7.2 g/dL Normal 6.3-8.0 [facility] Comment on above: Order Comment: Regisi men Type: BLOOD SPECIMENOrdering Facility: [facility] Address: [address] [facility] [place] [address] Performed By: #### 2 4323-8 ####[facility] LABCLIA [id number] [place] [address] Sodium [Moles/Vol] 139 mmol/L Normal 136-144 [facility] Comment on above: Order Comment: Speci men Type: BLOOD SPECIMENOrdering Facility: [facility] Address: [address] [place], [place] [address] Performed By: #### 2 4323-8 ####[facility] LABCLIA [id number] [place] [address] Urea nitrogen [Mass/Vol] 20 mg/dL Normal 7-21 [facility] Comment on above: Order Comment: Speci men Type: BLOOD SPECIMENOrdering Facility: [facility] Address: [address] [id number] Performed By: #### 2 4323-8 ####[facility] LABCLIA [id number] [place] [address] CT CHEST WO IVCONon 10-01-19 CT CHEST WO IVCON * * *Final Report* * * DATE OF EXAM: Oct 01 2023 10:43AM [facility] 0541 - CT CHEST WO IVCON [...] No abnormality in the imaged upper abdomen. Mill Supervisor (topogram) images: No additional findings. IMPRESSION: 1. [...] any questions regarding this interpretation, please call [phone]. If you are unable to reach us at the number above, please feel free to contact [facility] eRadiology at [phone]. [id number] N Normal [facility] CT Chest WO contraston 09-30 IMPRESSION: 1. Stable subcentimeter pulmonary nodules which [...] any questions regarding this interpretation, please call [phone]. If you are unable to reach us at the number above, please feel free to contact [facility]iology at [phone]. DIVISION OF RADIOLOGY * * *Final Report* * * DATE OF EXAM: Oct 01 2023 10:43AM [facility] 0541 - CT CHEST WO IVCON [...] No abnormality in the imaged upper abdomen. Mill Supervisor (topogram) images: No additional findings. DIVISION OF RADIOLOGY Provider, [facility] - 10/01/2023 * * *Final Report* * * DATE OF EXAM: Oct 01 2023 10:43AM [facility] 0541 - CT CHEST WO IVCON [...] No abnormality in the imaged upper abdomen. Mill Supervisor (topogram) images: No additional findings. IMPRESSION IMPRESSION: 1. Stable subcentimeter pulmonary nodules which are likely benign. 2. No significant thoracic adenopathy. Transcribe Date/Time: Oct 01 2023 12:12P Dictated by: VITALY VALREA MD This examination was interpreted and the report reviewed and electronically signed by: VITALY VALERA MD on Oct 01 2023 12:42PM EST Thank you for allowing us to participate in the care of your patient. Should there be any questions regarding this interpretation, please call [phone]. If you are unable to reach us at the number above, please feel free to contact [facility]iology at [phone]. [facility] Radiology Study observation (narrative) [facility] CT Chest WO contrastOrdered By: Ccf Provider on 10-01-2023 [facility] MRI ABDOMEN WO/W IVCONon MRI ABDOMEN WO/W [...] Tissues: No suspicious lesion. Lower chest: Unremarkable. Mill Supervisor (localizer) images: No additional findings. IMPRESSION: No metastatic disease in the abdomen. Transcribed Using Voice Recognition Transcribe Date/Time: Sep 29 2023 2:34P Dictated by: JAYLEEN RAND MD This examination was interpreted and the report reviewed and electronically signed by: MARINO GÓMEZ DO on Sep 29 2023 3:42PM EST [id number] N Normal [facility] MRI RECTUM WO/W IVCONon 03- MRI RECTUM WO/W IVCON * * *Final [...] with Dr Trevizo, a member of the [facility] rectal cancer multidisciplinary tumor board. IMPRESSION: Treated anorectal neoplasm without evident viable tumor. No metastatic disease in the pelvis. Transcribed Using Voice Recognition Transcribe Date/Time: Sep 29 2023 2:04P Dictated by: JAYLEEN RAND MD This examination was interpreted and the report reviewed and electronically signed by: MARINO GÓMEZ DO on Sep 29 2023 3:47PM EST [id number] N [facility] No Panel Informationon 09-28 [facility] Cristian 09-12-2023 CNP Telephone ([facility]) KIRT REYNA ([id number]) 1970 F Date Time Provider Department 09/12/23 TORIBIO MICHAUD During your visit today, we recorded the following information about you: Magdalena Laureano 09/12/2023 11:14 AM Signed Hi, can you please place a new MRI order for patient, thank you so much. Toribio Michaud MD 09/12/2023 12:31 PM Signed Orders placed ... Thanks! Toribio Neves Magdalena Krishnamurthy 09/15/2023 7:36 AM Signed Called patient to [...] going with the latter option. Thanks! Eliza Vaughan, BLAIR 09/18/2023 12:10 PM Signed Discussed with patient [...] anus (HCC) [C21.0] Order(s):MRI RECTUM WO/W IVCON [[id number]] Order #: [id number] FUTURE [] enteric contrast (will be provided with radiology test)MRI RECTUM WO/W. Administer, As Directed One Time Only, via Oral, Rectal, both Oral and Rectal, Enteric Tube, Stoma or Indwelling Catheter,? Enteric Contrast as designated per enteric contrast guidelinesDisp: 1 EachRfl: 0 MRI ABDOMEN WO/W IVCON [[id number]] Order #: [id number] FUTURE [] iv contrast (will be provided [...] 1 EachRfl: 0 CT CHEST WO IVCON [[id number]] Order #: [id number] FUTURE Prescriptions as of 09/18/2023 - CALCIUM [...] Status:Closed by ELIZA CEBALLOS on 09/18/23 [facility] CNOVon 07-11-2023 CNOV Office Visit ([facility] ) KIRT REYNA ([id number]) 1970 F Date Time Provider Department 07/11/23 2:40 PM PHIL DOUGHERTY [facility] During your visit today, we recorded the [...] PM Signed COLORECTAL SURGERY July 11, 2023 Kirteleno Reyna 53 year old Chief Complaint: anal [...] exam reveals no gross blood or masses Occupational Health And Safety Manager present: Yes, Padmini Garcia Anoscopy: The patient was placed in chest-knee position. After digital exam with a lubricated finger, the scope was easily inserted. Posterior anal canal scar noted. Otherwise normal mucosa was noted. Anoscopy completed. Assessment Assessment and Plan: Kirt Reyan is a 53 year old female with [...] MD Colorectal Surgery Referring Provider: PHIL DOUGHERTY [[id number]] Allergies As of Date: 07/11/2023 Noted Allergy [...] - acetaminophen (more content not included)... [facility] Cristian 07-02-2023 [facility] K[facility] ([id number]) 1970 F Date Time Provider Department 07/02/23 [...] re-order it for September, that's fine. Thanks! Toribio Krishnamurthy, Magdalena 07/09/2023 7:42 AM Signed Do you want [...] patient know why it's being moved. Thanks! Toribio Krishnamurthy, Magdalena 07/09/2023 1:02 PM Signed Called patient made [...] Encounter Status:Closed by MAGDALENA LAUREANO on 07/09/23 [facility] MRI RECTUM WO/W IVCONon 03-3 MRI RECTUM [...] Yes Other: COMPARISON: 05/21/2022 TECHNIQUE: Magnet: Siemens Altea 1.5T scanner. [...] RESIDUAL VIABLE TUMOR REMAINING. NO PELVIC LYMPHADENOPATHY. Principal Consulting Engineer: LEIDY Transcribe Date/Time: Oct 11 2022 5:09P Dictated by : DIMA TREVIZO MD This examination was interpreted and the report reviewed and electronically signed by: DIMA TREVIZO MD on Oct 11 2022 5:39PM EST [id number] N [facility] NURSING PROGon 10-11-2022 NURSING PROG HNO ID: [id number] Author: Melissa Vazquez RN Service: Nursing Author [...] DATE: October 11, 2022 TIME: 2:45 PM [facility] Consultation Noteon 09-04-19 Consultation Note [id number] Normal [facility] CBC W Auto Differential pane l (Bld)on 08-28-2022 Basophils (Bld) [#/Vol] [facility] Basophils/100 WBC (Bld) 0.2 % [facility] Differential cell count method Nom (Bld) Auto [facility] Eosinophils (Bld) [#/Vol] 0.20 10*3/uL [facility] Eosinophils/100 WBC (Bld) 4.0 % [facility] Erythrocyte distribution width (RBC) [Ratio] 13.7 % 11.5 - 15.0 % [facility] Hematocrit (Bld) [Volume fraction] 38.2 % 36.0 - 46.0 % [facility] Hemoglobin (Bld) [Mass/Vol] 12.9 g/dL 11.5 - 15.5 g/dL [facility] Immature granulocytes (Bld) [#/Vol] [facility] Immature granulocytes/100 WBC (Bld) 0.2 % [facility] Interpretation and review of laboratory results Abnormal [facility] Lymphocytes (Bld) [#/Vol] 0.61 10*3/uL Low [facility] Lymphocytes/100 WBC (Bld) 12.2 % [facility] MCH (RBC) [Entitic mass] 30.3 pg 26.0 - 34.0 pg [facility] MCHC (RBC) [Mass/Vol] 33.8 g/dL 30.5 - 36.0 g/dL [facility] MCV (RBC) [Entitic vol] 89.7 fL 80.0 - 100.0 fL [facility] Monocytes (Bld) [#/Vol] 0.43 10*3/uL NINF [facility] Monocytes/100 WBC (Bld) 8.6 % [facility] Neutrophils (Bld) [#/Vol] 3.76 10*3/uL [facility] Neutrophils/100 WBC (Bld) 74.8 % [facility] Nucleated RBC (Bld) [#/Vol] NINF [facility] Nucleated RBC/100 WBC (Bld) [Ratio] 0.0 % /100 WBC [facility] Platelet mean volume (Bld) [Entitic vol] 9.9 fL 9.0 - 12.7 fL [facility] Platelets (Bld) [#/Vol] 222 10*3/uL [facility] RBC (Bld) [#/Vol] 4.26 10*6/uL 3.90 - 5.2 0 m/uL [facility] WBC (Bld) [#/Vol] 5.02 10*3/uL [facility] This is an appended report. These results have been appended to a previously verified report. [facility] CT Abdomen and Pelvis W cont jazmynt John 08-28-2022 IMPRESSION: 1. 1.4 cm right rectal mass, decreased in conspicuity when correlated to the prior MRI examination of 05/21/2022. 2. No substantial intra-abdominal or pelvic lymphadenopathy is identified. Transcribe Date/Time: Aug 28 2022 11:12A Dictated by: AMMON GUTHRIE MD This examination was interpreted and the report reviewed and electronically signed by: AMMON GUTHRIE MD on Aug 28 2022 1:08PM EST Thank you for allowing us to participate in the care of your patient. Should there be any questions regarding this interpretation, please call [phone]. If you are unable to reach us at the number above, please feel free to contact [facility]iology at [phone]. DIVISION OF RADIOLOGY * * *Final Report* * * DATE OF EXAM: Aug 28 2022 10:54AM [facility] 0530 - CT ABD/PEL W IVCON / PROCEDURE REASON: Anal cancer (HCC) * * * * Physician Interpretation * * * * RESULT: EXAMINATION: CT ABDOMEN AND PELVIS WITH IV CONTRAST CLINICAL HISTORY: Renal carcinoma TECHNIQUE: CT of the abdomen and pelvis was performed using standard technique, scanning from just above the dome of the diaphragm to the symphysis pubis. MQ: CTAP_3 Contrast: IV: 125 ml of Omnipaque 300 Oral: 450 ml of Omni 240 10-25ml diluted with water CT Radiation dose: Integrated Dose-length product (DLP) for this visit = 1070 mGy*cm. CT Dose Reduction Employed: Automated exposure control (AEC) COMPARISON: CT abdomen 05/21/2022, MRI pelvis 05/21/2022. RESULT: Liver: No mass. Biliary Tract: No bile duct dilation. The gallbladder appears unremarkable. Spleen: No splenomegaly. No mass. Factors: No mass or ductal dilatation. Adrenal glands: No mass. Kidneys: No enhancing mass or hydronephrosis. GI Tract: Nodular mass along the right lateral rectum measures approximately 1.4 x 1.3 cm, image 131, series 3, less conspicuous in size from prior the MRI examination. Lymph nodes: No substantial mesenteric or retroperitoneal adenopathy. No substantial pelvic adenopathy is appreciated. Previously described subcentimeter pelvic lymph nodes on prior MRI examination are not well appreciated on this study. Mesentery: No ascites. No mass. Retroperitoneum: No mass. Vasculature: - Abdominal aorta and iliac arteries: No aneurysm - Celiac and SMA: Patent. - Portal venous system (SMV, splenic vein, portal vein and branches): Patent. - Hepatic veins: Patent. Pelvis: No free fluid. No substantial inguinal adenopathy. Bones/Soft Tissues: No osseous destructive process. Lower Thorax: A CT examination of the chest has been performed concurrently and will be dictated separately. Mill Supervisor (topogram) images: No additional findings. DIVISION OF RADIOLOGY Provider, [facility] - 08/28/2022 * * *Final Report* * * DATE OF EXAM: Aug 28 2022 10:54AM [facility] 0530 - CT ABD/PEL W IVCON / PROCEDURE REASON: Anal cancer (HCC) * * * * Physician Interpretation * * * * RESULT: EXAMINATION: CT ABDOMEN AND PELVIS WITH IV CONTRAST CLINICAL HISTORY: Renal carcinoma TECHNIQUE: CT of the abdomen and pelvis was performed using standard technique, scanning from just above the dome of the diaphragm to the symphysis pubis. MQ: CTAP_3 Contrast: IV: 125 ml of Omnipaque 300 Oral: 450 ml of Omni 240 10-25ml diluted with water CT Radiation dose: Integrated Dose-length product (DLP) for this visit = 1070 mGy*cm. CT Dose Reduction Employed: Automated exposure control (AEC) COMPARISON: CT abdomen 05/21/2022, MRI pelvis 05/21/2022. RESULT: Liver: No mass. Biliary Tract: No bile duct dilation. The gallbladder appears unremarkable. Spleen: No splenomegaly. No mass. Factors: No mass or ductal dilatation. Adrenal glands: No mass. Kidneys: No enhancing mass or hydronephrosis. GI Tract: Nodular mass along the right lateral rectum measures approximately 1.4 x 1.3 cm, image 131, series 3, less conspicuous in size from prior the MRI examination. Lymph nodes: No substantial mesenteric or retroperitoneal adenopathy. No substantial pelvic adenopathy is appreciated. Previously described subcentimeter pelvic lymph nodes on prior MRI examination are not well appreciated on this study. Mesentery: No ascites. No mass. Retroperitoneum: No mass. Vasculature: - Abdominal aorta and iliac arteries: No aneurysm - Celiac and SMA: Patent. - Portal venous system (SMV, splenic vein, portal vein and branches): Patent. - Hepatic veins: Patent. Pelvis: No free fluid. No substantial inguinal adenopathy. Bones/Soft Tissues: No osseous destructive process. Lower Thorax: A CT examination of the chest has been performed concurrently and will be dictated separately. Mill Supervisor (topogram) images: No additional findings. IMPRESSION IMPRESSION: 1. 1.4 cm right rectal mass, decreased in conspicuity when correlated to the prior MRI examination of 05/21/2022. 2. No substantial intra-abdominal or pelvic lymphadenopathy is identified. Transcribe Date/Time: Aug 28 2022 11:12A Dictated by: AMMON GUTHRIE MD This examination was interpreted and the report reviewed and electronically signed by: AMMON GUTHRIE MD on Aug 28 2022 1:08PM EST Thank you for allowing us to participate in the care of your patient. Should there be any questions regarding this interpretation, please call [phone]. If you are unable to reach us at the number above, please feel free to contact [facility]Radiology at [phone]. [facility] CT Abdomen and Pelvis W cont rast IVOrdered By: [facility] Provider on 08-28-[address] [facility] [address] Chest W contrast John IMPRESSION: Stable CT examination of the chest. Subcentimeter right-sided nodules, unchanged. Transcribe Date/Time: Aug 28 2022 11:00A Dictated by: AMMON GUTHRIE MD This examination was interpreted and the report reviewed and electronically signed by: AMMON GUTHRIE MD on Aug 28 2022 1:08PM EST Thank you for allowing us to participate in the care of your patient. Should there be any questions regarding this interpretation, please call [phone]. If you are unable to reach us at the number above, please feel free to contact [facility]iology at [phone]. DIVISION OF RADIOLOGY * * *Final Report* * * DATE OF EXAM: Aug 28 2022 10:54AM [facility] 0539 - CT CHEST W IVCON / PROCEDURE REASON: Anal cancer (HCC) * * * * Physician Interpretation * * * * RESULT: EXAMINATION: CHEST CT WITH CONTRAST CLINICAL HISTORY: Anal carcinoma Technique: Spiral CT acquisition of the chest from the thoracic inlet to the upper abdomen following IV contrast. MQ: CTCW_6 Contrast: 125 mL Omnipaque [address] Radiation dose: Integrated Dose-length product (DLP) for this visit = 1070 mGy*cm CT Dose Reduction Employed: Automated exposure control (AEC) Comparison: CT chest / RESULT: Limitations: None. Lines, tubes, and devices: None. Lung parenchyma , airways, and pleural space: No consolidative process or pleural effusion. The trachea and major airways appear patent. 4 mm nodule along the right major fissure, image 90, series 4, stable. Additional 2 mm subpleural right lower lobe nodule, image 97, series 4, stable. No suspicious enlarging nodule. Lower neck, lymph nodes, and mediastinum: The visualized thyroid gland is stable. No substantial supraclavicular or axillary lymphadenopathy. No substantial mediastinal or hilar adenopathy is appreciated. Heart, pericardium, and thoracic vessels: The thoracic aorta is normal in caliber. No substantial pericardial effusion. Bones/Soft Tissues: No osseous destructive process. Incompletely imaged, sclerotic focus proximal right humerus, stable. Upper Abdomen: Limited images through the upper abdomen are stable. Mill Supervisor (topogram) images: No additional findings. DIVISION OF RADIOLOGY Provider, [facility] - 08/28/2022 * * *Final Report* * * DATE OF EXAM: Aug 28 2022 10:54AM [facility] 0539 - CT CHEST W IVCON / PROCEDURE REASON: Anal cancer (HCC) * * * * Physician Interpretation * * * * RESULT: EXAMINATION: CHEST CT WITH CONTRAST CLINICAL HISTORY: Anal carcinoma Technique: Spiral CT acquisition of the chest from the thoracic inlet to the upper abdomen following IV contrast. MQ: CTCW_6 Contrast: 125 mL Omnipaque [address] Radiation dose: Integrated Dose-length product (DLP) for this visit = 1070 mGy*cm CT Dose Reduction Employed: Automated exposure control (AEC) Comparison: CT chest / RESULT: Limitations: None. Lines, tubes, and devices: None. Lung parenchyma , airways, and pleural space: No consolidative process or pleural effusion. The trachea and major airways appear patent. 4 mm nodule along the right major fissure, image 90, series 4, stable. Additional 2 mm subpleural right lower lobe nodule, image 97, series 4, stable. No suspicious enlarging nodule. Lower neck, lymph nodes, and mediastinum: The visualized thyroid gland is stable. No substantial supraclavicular or axillary lymphadenopathy. No substantial mediastinal or hilar adenopathy is appreciated. Heart, pericardium, and thoracic vessels: The thoracic aorta is normal in caliber. No substantial pericardial effusion. Bones/Soft Tissues: No osseous destructive process. Incompletely imaged, sclerotic focus proximal right humerus, stable. Upper Abdomen: Limited images through the upper abdomen are stable. Mill Supervisor (topogram) images: No additional findings. IMPRESSION IMPRESSION: Stable CT examination of the chest. Subcentimeter right-sided nodules, unchanged. Transcribe Date/Time: Aug 28 2022 11:00A Dictated by: AMMON GUTHRIE MD This examination was interpreted and the report reviewed and electronically signed by: AMMON GUTHRIE MD on Aug 28 2022 1:08PM EST Thank you for allowing us to participate in the care of your patient. Should there be any questions regarding this interpretation, please call [phone]. If you are unable to reach us at the number above, please feel free to contact [facility]iology at [phone]. [facility] Comprehensive metabolic 2000 panelOrdered By: Arin Cheatham on 08-28-2022 Albumin [Mass/Vol] 4.6 g/dL 3.9 - 4.9 g/dL [facility] ALP [Catalytic activity/Vol] 90 U/L 34 - 123 U/L [facility] ALT [Catalytic activity/Vol] 20 U/L 7 - 38 U/L [facility] Anion gap [Moles/Vol] 12 mmol/L 9 - 18 mmol/L [facility] AST [Catalytic activity/Vol] 25 U/L 13 - 35 U/L [facility] Bilirubin [Mass/Vol] 0.4 mg/dL 0.2 - 1 .3 mg/dL [facility] Calcium [Mass/Vol] 9.9 mg/dL 8.5 - 10. 2 mg/dL [facility] Chloride [Moles/Vol] 102 mmol/L 97 - 10 5 mmol/L [facility] CO2 [Moles/Vol] 26 mmol/L 22 - 30 mmol/L [facility] Creatinine [Mass/Vol] 0.69 mg/dL 0.58 - 0.96 mg/dL [facility] GFR/1.73 sq M.predicted among non-blacks MDRD (S/P/Bld) [Vol rate/Area] 104 mL/min/{1.73_m2} - PINF [facility] Comment on above: Estimated Glomerular Filtration Rate (eGFR) is calculated using the 2020 CKD-EPI creatinine equation. This equation utilizes serum creatinine, sex, and age as parameters. The creatinine assay has traceable calibration to isotope dilution-mass spectrometry. Refer to KDIGO guidelines for clinical interpretation. In patients with unstable renal function, e.g. those with acute kidney injury, the eGFR may not accurately reflect actual GFR. Glucose [Mass/Vol] 113 mg/dL High 74 - 99 mg/dL [facility] Comment on above: The [place] Diab[employer] s Association (ADA) provides guidance for cutoff values [...] Standards of Medical Care in Diabetes 2016, [place] [employer]. Diabetes Care. 2016.39(Suppl 1). Interpretation and review of laboratory results Abnormal [facility] Potassium [Moles/Vol] 4.0 mmol/L 3.7 - 5.1 mmol/L [facility] Protein [Mass/Vol] 7.6 g/dL 6.3 - 8.0 g/dL [facility] Sodium [Moles/Vol] 140 mmol/L 136 - 144 mmol/L [facility] Urea nitrogen [Mass/Vol] 16 mg/dL 7 - 21 mg/dL [facility] No Panel Informationon 08-28 Radiology Study observation (narrative) [facility] CBC panel Auto (Bld)on 08-01 Erythrocyte distribution width (RBC) [Ratio] 13.6 % 11.5 - 15.0 % [facility] Hematocrit (Bld) [Volume fraction] 38.1 % 36.0 - 46.0 % [facility] Hemoglobin (Bld) [Mass/Vol] 12.7 g/dL 11.5 - 15.5 g/dL [facility] MCH (RBC) [Entitic mass] 29.9 pg 26.0 - 34.0 pg [facility] MCHC (RBC) [Mass/Vol] 33.3 g/dL 30.5 - 36.0 g/dL [facility] MCV (RBC) [Entitic vol] 89.6 fL 80.0 - 100.0 fL [facility] Nucleated RBC (Bld) [#/Vol] <0.01 k/uL [facility] Platelet mean volume (Bld) [Entitic vol] 9.6 fL 9.0 - 12.7 fL [facility] Platelets (Bld) [#/Vol] 224 10*3/uL 150 - 400 k/uL [facility] RBC (Bld) [#/Vol] 4.25 10*6/uL 3.90 - 5.2 0 m/uL [facility] WBC (Bld) [#/Vol] 5.32 10*3/uL 3.70 - 11. 00 k/uL [facility] Comprehensive metabolic 2000 panelon 08-01-2022 Albumin [Mass/Vol] 4.6 g/dL 3.9 - 4.9 g/dL [facility] ALP [Catalytic activity/Vol] 88 U/L 34 - 123 U/L [facility] ALT [Catalytic activity/Vol] 19 U/L 7 - 38 U/L [facility] Anion gap [Moles/Vol] 10 mmol/L 9 - 18 mmol/L [facility] AST [Catalytic activity/Vol] 20 U/L 13 - 35 U/L [facility] Bilirubin [Mass/Vol] 0.2 mg/dL 0.2 - 1 .3 mg/dL [facility] Calcium [Mass/Vol] 9.5 mg/dL 8.5 - 10. 2 mg/dL [facility] Chloride [Moles/Vol] 100 mmol/L 97 - 10 5 mmol/L [facility] CO2 [Moles/Vol] 27 mmol/L 22 - 30 mmol/L [facility] Creatinine [Mass/Vol] 0.62 mg/dL 0.58 - 0.96 mg/dL [facility] Estimated Glomerular Filtration Rate 107 mL/min/1.73m >=60 mL/min/1.73m [facility] Glucose [Mass/Vol] 104 mg/dL High 74 - 99 mg/dL [facility] Potassium [Moles/Vol] 3.9 mmol/L 3.7 - 5.1 mmol/L [facility] Protein [Mass/Vol] 7.8 g/dL 6.3 - 8.0 g/dL [facility] Sodium [Moles/Vol] 137 mmol/L 136 - 144 mmol/L [facility] Urea nitrogen [Mass/Vol] 17 mg/dL 7 - 21 mg/dL [facility] CBC W Auto Differential pane l (Bld)on 07-17-2022 Basophils (Bld) [#/Vol] <0.11 k/uL [facility] Basophils/100 WBC (Bld) 0.2 % [facility] Differential cell count method Nom (Bld) Auto [facility] Eosinophils (Bld) [#/Vol] 0.23 10*3/uL <0.46 k/uL [facility] Eosinophils/100 WBC (Bld) 3.9 % [facility] Erythrocyte distribution width (RBC) [Ratio] 13.2 % 11.5 - 15.0 % [facility] Hematocrit (Bld) [Volume fraction] 36.5 % 36.0 - 46.0 % [facility] Hemoglobin (Bld) [Mass/Vol] 12.1 g/dL 11.5 - 15.5 g/dL [facility] Immature granulocytes (Bld) [#/Vol] <0.10 k/uL [facility] Immature granulocytes/100 WBC (Bld) 0.2 % [facility] Lymphocytes (Bld) [#/Vol] 0.50 10*3/uL Low 1.00 - 4.00 k/uL [facility] Lymphocytes/100 WBC (Bld) 8.4 % [facility] MCH (RBC) [Entitic mass] 29.8 pg 26.0 - 34.0 pg [facility] MCHC (RBC) [Mass/Vol] 33.2 g/dL 30.5 - 36.0 g/dL [facility] MCV (RBC) [Entitic vol] 89.9 fL 80.0 - 100.0 fL [facility] Monocytes (Bld) [#/Vol] 0.39 10*3/uL <0.87 k/uL [facility] Monocytes/100 WBC (Bld) 6.6 % [facility] Neutrophils (Bld) [#/Vol] 4.81 10*3/uL 1.45 - 7.50 k/uL [facility] Neutrophils/100 WBC (Bld) 80.7 % [facility] Nucleated RBC (Bld) [#/Vol] <0.01 k/uL [facility] Nucleated RBC/100 WBC (Bld) [Ratio] 0.0 /100 WBC [facility] Platelet mean volume (Bld) [Entitic vol] 9.2 fL 9.0 - 12.7 fL [facility] Platelets (Bld) [#/Vol] 237 10*3/uL 150 - 400 k/uL [facility] RBC (Bld) [#/Vol] 4.06 10*6/uL 3.90 - 5.2 0 m/uL [facility] WBC (Bld) [#/Vol] 5.95 10*3/uL 3.70 - 11. 00 k/uL [facility] Comprehensive metabolic 2000 panelon 07-17-2022 Albumin [Mass/Vol] 4.5 g/dL 3.9 - 4.9 g/dL [facility] ALP [Catalytic activity/Vol] 86 U/L 34 - 123 U/L [facility] ALT [Catalytic activity/Vol] 18 U/L 7 - 38 U/L [facility] Anion gap [Moles/Vol] 9 mmol/L 9 - 18 mmol/L [facility] AST [Catalytic activity/Vol] 19 U/L 13 - 35 U/L [facility] Bilirubin [Mass/Vol] 0.2 mg/dL 0.2 - 1 .3 mg/dL [facility] Calcium [Mass/Vol] 9.4 mg/dL 8.5 - 10. 2 mg/dL [facility] Chloride [Moles/Vol] 101 mmol/L 97 - 10 5 mmol/L [facility] CO2 [Moles/Vol] 28 mmol/L 22 - 30 mmol/L [facility] Creatinine [Mass/Vol] 0.67 mg/dL 0.58 - 0.96 mg/dL [facility] Estimated Glomerular Filtration Rate 105 mL/min/1.73m >=60 mL/min/1.73m [facility] Glucose [Mass/Vol] 109 mg/dL High 74 - 99 mg/dL [facility] Potassium [Moles/Vol] 4.2 mmol/L 3.7 - 5.1 mmol/L [facility] Protein [Mass/Vol] 7.5 g/dL 6.3 - 8.0 g/dL [facility] Sodium [Moles/Vol] 138 mmol/L 136 - 144 mmol/L [facility] Urea nitrogen [Mass/Vol] 17 mg/dL 7 - 21 mg/dL [facility] CBC W Auto Differential pane l (Bld)on 07-10-2022 Basophils (Bld) [#/Vol] <0.11 k/uL [facility] Basophils/100 WBC (Bld) 0.3 % [facility] Differential cell count method Nom (Bld) Auto [facility] Eosinophils (Bld) [#/Vol] 0.16 10*3/uL <0.46 k/uL [facility] Eosinophils/100 WBC (Bld) 2.6 % [facility] Erythrocyte distribution width (RBC) [Ratio] 12.9 % 11.5 - 15.0 % [facility] Hematocrit (Bld) [Volume fraction] 37.4 % 36.0 - 46.0 % [facility] Hemoglobin (Bld) [Mass/Vol] 12.6 g/dL 11.5 - 15.5 g/dL [facility] Immature granulocytes (Bld) [#/Vol] 0.03 10*3/uL <0.10 k/uL [facility] Immature granulocytes/100 WBC (Bld) 0.5 % [facility] Lymphocytes (Bld) [#/Vol] 0.57 10*3/uL Low 1.00 - 4.00 k/uL [facility] Lymphocytes/100 WBC (Bld) 9.4 % [facility] MCH (RBC) [Entitic mass] 30.1 pg 26.0 - 34.0 pg [facility] MCHC (RBC) [Mass/Vol] 33.7 g/dL 30.5 - 36.0 g/dL [facility] MCV (RBC) [Entitic vol] 89.3 fL 80.0 - 100.0 fL [facility] Monocytes (Bld) [#/Vol] 0.49 10*3/uL <0.87 k/uL [facility] Monocytes/100 WBC (Bld) 8.1 % [facility] Neutrophils (Bld) [#/Vol] 4.80 10*3/uL 1.45 - 7.50 k/uL [facility] Neutrophils/100 WBC (Bld) 79.1 % [facility] Nucleated RBC (Bld) [#/Vol] <0.01 k/uL [facility] Nucleated RBC/100 WBC (Bld) [Ratio] 0.0 /100 WBC [facility] Platelet mean volume (Bld) [Entitic vol] 9.4 fL 9.0 - 12.7 fL [facility] Platelets (Bld) [#/Vol] 218 10*3/uL 150 - 400 k/uL [facility] RBC (Bld) [#/Vol] 4.19 10*6/uL 3.90 - 5.2 0 m/uL [facility] WBC (Bld) [#/Vol] 6.07 10*3/uL 3.70 - 11. 00 k/uL [facility] Comprehensive metabolic 2000 panelon 07-10-2022 Albumin [Mass/Vol] 4.5 g/dL 3.9 - 4.9 g/dL [facility] ALP [Catalytic activity/Vol] 97 U/L 34 - 123 U/L [facility] ALT [Catalytic activity/Vol] 18 U/L 7 - 38 U/L [facility] Anion gap [Moles/Vol] 9 mmol/L 9 - 18 mmol/L [facility] AST [Catalytic activity/Vol] 20 U/L 13 - 35 U/L [facility] Bilirubin [Mass/Vol] 0.2 mg/dL 0.2 - 1 .3 mg/dL [facility] Calcium [Mass/Vol] 9.4 mg/dL 8.5 - 10. 2 mg/dL [facility] Chloride [Moles/Vol] 102 mmol/L 97 - 10 5 mmol/L [facility] CO2 [Moles/Vol] 28 mmol/L 22 - 30 mmol/L [facility] Creatinine [Mass/Vol] 0.66 mg/dL 0.58 - 0.96 mg/dL [facility] Estimated Glomerular Filtration Rate 105 mL/min/1.73m >=60 mL/min/1.73m [facility] Glucose [Mass/Vol] 95 mg/dL 74 - 99 mg/dL [facility] Potassium [Moles/Vol] 4.0 mmol/L 3.7 - 5.1 mmol/L [facility] Protein [Mass/Vol] 7.5 g/dL 6.3 - 8.0 g/dL [facility] Sodium [Moles/Vol] 139 mmol/L 136 - 144 mmol/L [facility] Urea nitrogen [Mass/Vol] 19 mg/dL 7 - 21 mg/dL [facility] CBC W Auto Differential pane l (Bld)on 06-24-2022 Basophils (Bld) [#/Vol] <0.11 k/uL [facility] Basophils/100 WBC (Bld) 0.3 % [facility] Differential cell count method Nom (Bld) Auto [facility] Eosinophils (Bld) [#/Vol] 0.11 10*3/uL <0.46 k/uL [facility] Eosinophils/100 WBC (Bld) 3.0 % [facility] Erythrocyte distribution width (RBC) [Ratio] 12.4 % 11.5 - 15.0 % [facility] Hematocrit (Bld) [Volume fraction] 39.1 % 36.0 - 46.0 % [facility] Hemoglobin (Bld) [Mass/Vol] 13.1 g/dL 11.5 - 15.5 g/dL [facility] Immature granulocytes (Bld) [#/Vol] <0.10 k/uL [facility] Immature granulocytes/100 WBC (Bld) 0.5 % [facility] Lymphocytes (Bld) [#/Vol] 0.45 10*3/uL Low 1.00 - 4.00 k/uL [facility] Lymphocytes/100 WBC (Bld) 12.3 % [facility] MCH (RBC) [Entitic mass] 29.9 pg 26.0 - 34.0 pg [facility] MCHC (RBC) [Mass/Vol] 33.5 g/dL 30.5 - 36.0 g/dL [facility] MCV (RBC) [Entitic vol] 89.3 fL 80.0 - 100.0 fL [facility] Monocytes (Bld) [#/Vol] 0.32 10*3/uL <0.87 k/uL [facility] Monocytes/100 WBC (Bld) 8.8 % [facility] Neutrophils (Bld) [#/Vol] 2.74 10*3/uL 1.45 - 7.50 k/uL [facility] Neutrophils/100 WBC (Bld) 75.1 % [facility] Nucleated RBC (Bld) [#/Vol] <0.01 k/uL [facility] Nucleated RBC/100 WBC (Bld) [Ratio] 0.0 /100 WBC [facility] [facility] mean volume (Bld) [Entitic vol] 10.1 fL 9.0 - 12.7 fL [facility] Platelets (Bld) [#/Vol] 186 10*3/uL 150 - 400 k/uL [facility] RBC (Bld) [#/Vol] 4.38 10*6/uL 3.90 - 5.2 0 m/uL [facility] WBC (Bld) [#/Vol] 3.65 10*3/uL Low 3.70 - 11. 00 k/uL [facility] Comprehensive metabolic 2000 panelon 06-24-2022 Albumin [Mass/Vol] 4.5 g/dL 3.9 - 4.9 g/dL [facility] ALP [Catalytic activity/Vol] 88 U/L 34 - 123 U/L [facility] ALT [Catalytic activity/Vol] 15 U/L 7 - 38 U/L [facility] Anion gap [Moles/Vol] 9 mmol/L 9 - 18 mmol/L [facility] AST [Catalytic activity/Vol] 19 U/L 13 - 35 U/L [facility] Bilirubin [Mass/Vol] 0.3 mg/dL 0.2 - 1 .3 mg/dL [facility] Calcium [Mass/Vol] 9.4 mg/dL 8.5 - 10. 2 mg/dL [facility] Chloride [Moles/Vol] 99 mmol/L 97 - 10 5 mmol/L [facility] CO2 [Moles/Vol] 28 mmol/L 22 - 30 mmol/L [facility] Creatinine [Mass/Vol] 0.65 mg/dL 0.58 - 0.96 mg/dL [facility] Estimated Glomerular Filtration Rate 105 mL/min/1.73m >=60 mL/min/1.73m [facility] Glucose [Mass/Vol] 113 mg/dL High 74 - 99 mg/dL [facility] Potassium [Moles/Vol] 4.0 mmol/L 3.7 - 5.1 mmol/L [facility] Protein [Mass/Vol] 7.5 g/dL 6.3 - 8.0 g/dL [facility] Sodium [Moles/Vol] 136 mmol/L 136 - 144 mmol/L [facility] Urea nitrogen [Mass/Vol] 19 mg/dL 7 - 21 mg/dL [facility] CBC W Auto Differential pane l (Bld)on 06-14-2022 Basophils (Bld) [#/Vol] 0.03 10*3/uL <0.11 k/uL [facility] Basophils/100 WBC (Bld) 0.4 % [facility] Differential cell count method Nom (Bld) Auto [facility] Eosinophils (Bld) [#/Vol] 0.08 10*3/uL <0.46 k/uL [facility] Eosinophils/100 WBC (Bld) 1.1 % [facility] Erythrocyte distribution width (RBC) [Ratio] 12.4 % 11.5 - 15.0 % [facility] Hematocrit (Bld) [Volume fraction] 41.7 % 36.0 - 46.0 % [facility] Hemoglobin (Bld) [Mass/Vol] 14.0 g/dL 11.5 - 15.5 g/dL [facility] Immature granulocytes (Bld) [#/Vol] <0.10 k/uL [facility] Immature granulocytes/100 WBC (Bld) 0.1 % [facility] Lymphocytes (Bld) [#/Vol] 1.64 10*3/uL 1.00 - 4.00 k/uL [facility] Lymphocytes/100 WBC (Bld) 22.5 % [facility] MCH (RBC) [Entitic mass] 29.8 pg 26.0 - 34.0 pg [facility] MCHC (RBC) [Mass/Vol] 33.6 g/dL 30.5 - 36.0 g/dL [facility] MCV (RBC) [Entitic vol] 88.7 fL 80.0 - 100.0 fL [facility] Monocytes (Bld) [#/Vol] 0.37 10*3/uL <0.87 k/uL [facility] Monocytes/100 WBC (Bld) 5.1 % [facility] Neutrophils (Bld) [#/Vol] 5.15 10*3/uL 1.45 - 7.50 k/uL [facility] Neutrophils/100 WBC (Bld) 70.8 % [facility] Nucleated RBC (Bld) [#/Vol] <0.01 k/uL [facility] Nucleated RBC/100 WBC (Bld) [Ratio] 0.0 /100 WBC [facility] Platelet mean volume (Bld) [Entitic vol] 10.6 fL 9.0 - 12.7 fL [facility] Platelets (Bld) [#/Vol] 259 10*3/uL 150 - 400 k/uL [facility] RBC (Bld) [#/Vol] 4.70 10*6/uL 3.90 - 5.2 0 m/uL [facility] WBC (Bld) [#/Vol] 7.28 10*3/uL 3.70 - 11. 00 k/uL [facility] Comprehensive metabolic 2000 panelon 06-14-2022 Albumin [Mass/Vol] 4.5 g/dL 3.9 - 4.9 g/dL [facility] ALP [Catalytic activity/Vol] 88 U/L 34 - 123 U/L [facility] ALT [Catalytic activity/Vol] 16 U/L 7 - 38 U/L [facility] Anion gap [Moles/Vol] 10 mmol/L 9 - 18 mmol/L [facility] AST [Catalytic activity/Vol] [facility] Bilirubin [Mass/Vol] 0.3 mg/dL 0.2 - 1 .3 mg/dL [facility] Calcium [Mass/Vol] 9.7 mg/dL 8.5 - 10. 2 mg/dL [facility] Chloride [Moles/Vol] 99 mmol/L 97 - 10 5 mmol/L [facility] CO2 [Moles/Vol] 24 mmol/L 22 - 30 mmol/L [facility] Creatinine [Mass/Vol] 0.68 mg/dL 0.58 - 0.96 mg/dL [facility] Estimated Glomerular Filtration Rate 104 mL/min/1.73m >=60 mL/min/1.73m [facility] Glucose [Mass/Vol] 136 mg/dL High 74 - 99 mg/dL [facility] Potassium [Moles/Vol] 4.1 mmol/L 3.7 - 5.1 mmol/L [facility] Protein [Mass/Vol] 7.7 g/dL 6.3 - 8.0 g/dL [facility] Sodium [Moles/Vol] 133 mmol/L Low 136 - 144 mmol/L [facility] Urea nitrogen [Mass/Vol] 16 mg/dL 7 - 21 mg/dL [facility] Consultation Noteon 06-12-20 Consultation Note [id number] .[id number]:127 Normal [facility] CBC W Auto Differential pane l (Bld)on 05-27-2022 Basophils (Bld) [#/Vol] <0.11 k/uL [facility] Basophils (Bld) [#/Vol] [facility] Basophils/100 WBC (Bld) 0.2 % [facility] Differential cell count method Nom (Bld) Auto [facility] Eosinophils (Bld) [#/Vol] 0.06 10*3/uL [facility] Eosinophils/100 WBC (Bld) 0.7 % [facility] Erythrocyte distribution width (RBC) [Ratio] 12.8 % 11.5 - 15.0 % [facility] Hematocrit (Bld) [Volume fraction] 40.8 % 36.0 - 46.0 % [facility] Hemoglobin (Bld) [Mass/Vol] 13.7 g/dL 11.5 - 15.5 g/dL [facility] Immature granulocytes (Bld) [#/Vol] <0.10 k/uL [facility] Immature granulocytes (Bld) [#/Vol] [facility] Immature granulocytes/100 WBC (Bld) 0.2 % [facility] Lymphocytes (Bld) [#/Vol] 1.43 10*3/uL [facility] Lymphocytes/100 WBC (Bld) 17.4 % [facility] MCH (RBC) [Entitic mass] 30.2 pg 26.0 - 34.0 pg [facility] MCHC (RBC) [Mass/Vol] 33.6 g/dL 30.5 - 36.0 g/dL [facility] MCV (RBC) [Entitic vol] 89.9 fL 80.0 - 100.0 fL [facility] Monocytes (Bld) [#/Vol] 0.35 10*3/uL [facility] Monocytes/100 WBC (Bld) 4.3 % [facility] Neutrophils (Bld) [#/Vol] 6.34 10*3/uL [facility] Neutrophils/100 WBC (Bld) 77.2 % [facility] Nucleated RBC (Bld) [#/Vol] <0.01 k/uL [facility] Nucleated RBC (Bld) [#/Vol] [facility] Nucleated RBC/100 WBC (Bld) [Ratio] 0.0 /100 WBC [facility] Nucleated RBC/100 WBC (Bld) [Ratio] 0.0 % /100 WBC [facility] Platelet mean volume (Bld) [Entitic vol] 9.9 fL 9.0 - 12.7 fL [facility] Platelets (Bld) [#/Vol] 328 10*3/uL [facility] RBC (Bld) [#/Vol] 4.54 10*6/uL 3.90 - 5.2 0 m/uL [facility] WBC (Bld) [#/Vol] 8.22 10*3/uL [facility] This is an appended report. These results have been appended to a previously verified report. [facility] Comprehensive metabolic 2000 panelOrdered By: Mando Underwood on 05-27-2022 Albumin [Mass/Vol] 4.6 g/dL 3.9 - 4.9 g/dL [facility] ALP [Catalytic activity/Vol] 87 U/L 34 - 123 U/L [facility] ALT [Catalytic activity/Vol] 14 U/L 7 - 38 U/L [facility] Anion gap [Moles/Vol] 8 mmol/L Low 9 - 18 mmol/L [facility] AST [Catalytic activity/Vol] 22 U/L 13 - 35 U/L [facility] Bilirubin [Mass/Vol] 0.2 mg/dL 0.2 - 1 .3 mg/dL [facility] Calcium [Mass/Vol] 9.1 mg/dL 8.5 - 10. 2 mg/dL [facility] Chloride [Moles/Vol] 99 mmol/L 97 - 10 5 mmol/L [facility] CO2 [Moles/Vol] 29 mmol/L 22 - 30 mmol/L [facility] Creatinine [Mass/Vol] 0.70 mg/dL 0.58 - 0.96 mg/dL [facility] GFR/1.73 sq M.predicted among non-blacks MDRD (S/P/Bld) [Vol rate/Area] 104 mL/min/{1.73_m2} - PINF [facility] Comment on above: Estimated Glomerular Filtration Rate (eGFR) is calculated using the 2020 CKD-EPI creatinine equation. This equation utilizes serum creatinine, sex, and age as parameters. The creatinine assay has traceable calibration to isotope dilution-mass spectrometry. Refer to KDIGO guidelines for clinical interpretation. In patients with unstable renal function, e.g. those with acute kidney injury, the eGFR may not accurately reflect actual GFR. Glucose [Mass/Vol] 128 mg/dL High 74 - 99 mg/dL [facility] Comment on above: The [place] Diab[employer] Association (ADA) provides guidance for cutoff values [...] Standards of Medical Care in Diabetes 2016, [place] [employer]. Diabetes Care. 2016.39(Suppl 1). Interpretation and review of laboratory results Abnormal [facility] Potassium [Moles/Vol] 3.8 mmol/L 3.7 - 5.1 mmol/L [facility] Protein [Mass/Vol] 7.7 g/dL 6.3 - 8.0 g/dL [facility] Sodium [Moles/Vol] 136 mmol/L 136 - 144 mmol/L [facility] Urea nitrogen [Mass/Vol] 16 mg/dL 7 - 21 mg/dL [facility] Comprehensive metabolic 2000 panelon 05-27-2022 Estimated Glomerular Filtration Rate 104 mL/min/1.73m >=60 mL/min/1.73m [facility] CT Abdomen W contrast John 1 07-21-2021 IMPRESSION: 1. No evidence of metastatic disease within the abdomen. Please note, the pelvis was not imaged on this study. 2. A chest CT and MRI pelvis, also performed today, are separately reported. Transcribe Date/Time: May 21 2022 9:49A Dictated by: MIGUEL ANGEL SCHWARTZ MD This examination was interpreted and the report reviewed and electronically signed by: MIGUEL ANGEL SCHWARTZ MD on May 21 2022 10:03AM EST Thank you for allowing us to participate in the care of your patient. Should there be any questions regarding this interpretation, please call [phone]. If you are unable to reach us at the number above, please feel free to contact [facility] eRadiology at [phone]. DIVISION OF RADIOLOGY * * *Final Report* * * DATE OF EXAM: May 21 2022 9:24AM [facility] 0533 - CT ABDOMEN W IVCON / PROCEDURE REASON: Anal cancer (HCC) * * * * Physician Interpretation * * * * RESULT: EXAMINATION: CT ABDOMEN WITH IV CONTRAST CLINICAL HISTORY: Anal cancer. TECHNIQUE: CT of the abdomen was performed using standard technique, scanning from just above the dome of the diaphragm to the iliac crest. MQ: CTAbdW_4 Contrast: IV: 171 ml of Omnipaque 300 Oral: 450 ml of dilute Omnipaque 240 CT Radiation dose: Integrated Dose-length product (DLP) for this visit = 532 mGy*cm. CT Dose Reduction Employed: Automated exposure control (AEC) COMPARISON: No comparison is available. RESULT: Liver: No mass. Biliary: No bile duct dilation. Gallbladder is unremarkable. Spleen: No mass. No splenomegaly. Pancreas: No mass or duct dilation. Adrenals: No mass. Kidneys: No mass, calculus or hydronephrosis. GI tract: Imaged portions of the bowel are normal in caliber and without evidence of wall thickening or obstruction. Lymph nodes: No abdominal lymphadenopathy. Mesentery/Peritoneum: No ascites or mass. Retroperitoneum: No mass. Vasculature: - Abdominal aorta: No aneurysm. - Celiac and SMA: Patent without stenosis. - Portal venous system (SMV, splenic vein, portal vein and branches): Patent. - Hepatic veins: Patent. Bones/Soft Tissues: No significant finding. Lower thorax: A chest CT performed will be reported separately. Mill Supervisor (topogram) images: Unremarkable. DIVISION OF RADIOLOGY Provider, [facility] - 05/21/2022 * * *Final Report* * * DATE OF EXAM: May 21 2022 9:24AM [facility] 0533 - CT ABDOMEN W IVCON / PROCEDURE REASON: Anal cancer (HCC) * * * * Physician Interpretation * * * * RESULT: EXAMINATION: CT ABDOMEN WITH IV CONTRAST CLINICAL HISTORY: Anal cancer. TECHNIQUE: CT of the abdomen was performed using standard technique, scanning from just above the dome of the diaphragm to the iliac crest. MQ: CTAbdW_4 Contrast: IV: 171 ml of Omnipaque 300 Oral: 450 ml of dilute Omnipaque 240 CT Radiation dose: Integrated Dose-length product (DLP) for this visit = 532 mGy*cm. CT Dose Reduction Employed: Automated exposure control (AEC) COMPARISON: No comparison is available. RESULT: Liver: No mass. Biliary: No bile duct dilation. Gallbladder is unremarkable. Spleen: No mass. No splenomegaly. Pancreas: No mass or duct dilation. Adrenals: No mass. Kidneys: No mass, calculus or hydronephrosis. GI tract: Imaged portions of the bowel are normal in caliber and without evidence of wall thickening or obstruction. Lymph nodes: No abdominal lymphadenopathy. Mesentery/Peritoneum: No ascites or mass. Retroperitoneum: No mass. Vasculature: - Abdominal aorta: No aneurysm. - Celiac and SMA: Patent without stenosis. - Portal venous system (SMV, splenic vein, portal vein and branches): Patent. - Hepatic veins: Patent. Bones/Soft Tissues: No significant finding. Lower thorax: A chest CT performed will be reported separately. Mill Supervisor (topogram) images: Unremarkable. IMPRESSION IMPRESSION: 1. No evidence of metastatic disease within the abdomen. Please note, the pelvis was not imaged on this study. 2. A chest CT and MRI pelvis, also performed today, are separately reported. Transcribe Date/Time: May 21 2022 9:49A Dictated by: MIGUEL ANGEL SCHWARTZ MD This examination was interpreted and the report reviewed and electronically signed by: MIGUEL ANGEL SCHWARTZ MD on May 21 2022 10:03AM EST Thank you for allowing us to participate in the care of your patient. Should there be any questions regarding this interpretation, please call [phone]. If you are unable to reach us at the number above, please feel free to contact [facility] eRadiology at [phone]. [facility] CT Chest W contrast John IMPRESSION: 1. Nonspecific noncalcified pulmonary nodules measuring up to 0.4 cm. Continued attention on subsequent studies is suggested. 2. A 1.8 cm sclerotic focus within the proximal right humerus is indeterminate, but favored to represent a benign entity such as an enchondroma. Consideration could be given to further assessment with nuclear medicine bone scan and/or right shoulder radiographs. 3. No lymphadenopathy. 4. Please refer to concurrently acquired and separately reported abdomen CT for findings related to the upper abdomen. Transcribe Date/Time: May 21 2022 9:53A Dictated by: MIGUEL ANGEL SCHWARTZ MD This examination was interpreted and the report reviewed and electronically signed by: MIGUEL ANGEL SCHWARTZ MD on May 21 2022 10:04AM EST Thank you for allowing us to participate in the care of your patient. Should there be any questions regarding this interpretation, please call [phone]. If you are unable to reach us at the number above, please feel free to contact [facility]Radiology at [phone]. DIVISION OF RADIOLOGY * * *Final Report* * * DATE OF EXAM: May 21 2022 9:24AM [facility] 0539 - CT CHEST W IVCON / PROCEDURE REASON: Anal cancer (HCC) * * * * Physician Interpretation * * * * RESULT: EXAMINATION: CHEST CT WITH CONTRAST CLINICAL HISTORY: Anal cancer Technique: Spiral CT acquisition of the chest from the thoracic inlet to the upper abdomen following IV contrast. MQ: CTCW_6 Contrast: 171 mL Omnipaque [address] Radiation dose: Integrated Dose-length product (DLP) for this visit = 532 mGy*cm CT Dose Reduction Employed: Automated exposure control (AEC) Comparison: No comparison is available. RESULT: Limitations: None. Lines, tubes, and devices: None. Lung parenchyma and airways: There is no airspace consolidation. The central tracheobronchial tree is patent. There are a few nonspecific noncalcified pulmonary nodules, detailed as follows on series 4: -Image 88, right lower lobe, 0.4 cm -Image 94, right lower lobe, 0.2 cm Pleural space: No pleural effusion. No pleural thickening. Lower neck, lymph nodes, and mediastinum: The imaged thyroid is unremarkable. There is no supraclavicular, axillary, mediastinal or hilar lymphadenopathy. Heart, pericardium, and thoracic vessels: The thoracic aorta and main pulmonary artery are normal in caliber. The cardiac chambers are normal in size. No coronary artery atherosclerotic calcifications are noted, although the study is not optimized for coronary assessment. No pericardial effusion or thickening. Bones and soft tissues: There are no destructive lytic or blastic osseous abnormalities. A 1.8 cm peripherally sclerotic focus within the proximal right humerus (series 3, image 12) is indeterminate. Upper abdomen: Please refer to concurrently acquired and separately reported abdomen CT for findings related to the upper abdomen. Mill Supervisor (topogram) images: No additional findings. DIVISION OF RADIOLOGY Provider, [facility] - 05/21/2022 * * *Final Report* * * DATE OF EXAM: May 21 2022 9:24AM [facility] 0539 - CT CHEST W IVCON / PROCEDURE REASON: Anal cancer (HCC) * * * * Physician Interpretation * * * * RESULT: EXAMINATION: CHEST CT WITH CONTRAST CLINICAL HISTORY: Anal cancer Technique: Spiral CT acquisition of the chest from the thoracic inlet to the upper abdomen following IV contrast. MQ: CTCW_6 Contrast: 171 mL Omnipaque [address] Radiation dose: Integrated Dose-length product (DLP) for this visit = 532 mGy*cm CT Dose Reduction Employed: Automated exposure control (AEC) Comparison: No comparison is available. RESULT: Limitations: None. Lines, tubes, and devices: None. Lung parenchyma and airways: There is no airspace consolidation. The central tracheobronchial tree is patent. There are a few nonspecific noncalcified pulmonary nodules, detailed as follows on series 4: -Image 88, right lower lobe, 0.4 cm -Image 94, right lower lobe, 0.2 cm Pleural space: No pleural effusion. No pleural thickening. Lower neck, lymph nodes, and mediastinum: The imaged thyroid is unremarkable. There is no supraclavicular, axillary, mediastinal or hilar lymphadenopathy. Heart, pericardium, and thoracic vessels: The thoracic aorta and main pulmonary artery are normal in caliber. The cardiac chambers are normal in size. No coronary artery atherosclerotic calcifications are noted, although the study is not optimized for coronary assessment. No pericardial effusion or thickening. Bones and soft tissues: There are no destructive lytic or blastic osseous abnormalities. A 1.8 cm peripherally sclerotic focus within the proximal right humerus (series 3, image 12) is indeterminate. Upper abdomen: Please refer to concurrently acquired and separately reported abdomen CT for findings related to the upper abdomen. Mill Supervisor (topogram) images: No additional findings. IMPRESSION IMPRESSION: 1. Nonspecific noncalcified pulmonary nodules measuring up to 0.4 cm. Continued attention on subsequent studies is suggested. 2. A 1.8 cm sclerotic focus within the proximal right humerus is indeterminate, but favored to represent a benign entity such as an enchondroma. Consideration could be given to further assessment with nuclear medicine bone scan and/or right shoulder radiographs. 3. No lymphadenopathy. 4. Please refer to concurrently acquired and separately reported abdomen CT for findings related to the upper abdomen. Transcribe Date/Time: May 21 2022 9:53A Dictated by: MIGUEL ANGEL SCHWARTZ MD This examination was interpreted and the report reviewed and electronically signed by: MIGUEL ANGEL SCHWARTZ MD on May 21 2022 10:04AM EST Thank you for allowing us to participate in the care of your patient. Should there be any questions regarding this interpretation, please call [phone]. If you are unable to reach us at the number above, please feel free to contact [facility]iology at [phone]. [facility] CT Chest W contrast IVOrdere d By: [facility] Provider on 05-21-2022 [facility] No Panel Informationon 05-21 Radiology Study observation (narrative) [facility] Pathology Noteon 05-05-2022 Pathology Note [id number]# 1.00CD:127 Normal [facility] CBC W Auto Differential pane l (Bld)on 05-02-2022 Basophils (Bld) [#/Vol] 10*3/uL Normal <0.11 [facility] Comment on above: Order Comment: Speci men Type: BLOOD SPECIMEN Ordering Facility: [facility] Address: [address] [place] [address] Performed By: #### 5 7021-8 #### [facility] CLIA [id number] [place] [address] [place] Basophils/100 WBC (Bld) 0.3 % Normal [facility] Comment on above: Order Comment: Speci men Type: BLOOD SPECIMEN Ordering Facility: [facility] Address: [address] [place] [address] Performed By: #### 5 7021-8 #### [facility] CLIA [id number] [place] [address] [place] Differential cell count method Nom (Bld) Auto Normal [facility] Comment on above: Order Comment: Speci men Type: BLOOD SPECIMEN Ordering Facility: [facility] Address: [address] [place] [address] Performed By: #### 5 7021-8 #### [facility] CLIA [id number] [place] [address] [place] Eosinophils (Bld) [#/Vol] 0.05 10*3/uL Normal <0.46 [facility] Comment on above: Order Comment: Speci men Type: BLOOD SPECIMEN Ordering Facility: [facility] Address: [address] [place] [address] Performed By: #### 5 7021-8 #### [facility] [place] [id number] [address] [place] [address] [place] Eosinophils/100 WBC (Bld) 0.7 % Normal [facility] Comment on above: Order Comment: Speci men Type: BLOOD SPECIMEN Ordering Facility: [facility] Address: [address] [place] [address] Performed By: #### 5 7021-8 #### [facility] [place] [id number] [place] Erythrocyte distribution width (RBC) [Ratio] 12.7 % Normal 11.5-15.0 [facility] Comment on above: Order Comment: Speci men Type: BLOOD SPECIMEN Ordering Facility: [facility] Address: [address] [place] [address] Performed By: #### 5 7021-8 #### [facility] [place] [id number] [place] Hematocrit (Bld) [Volume fraction] 43.0 % Normal 36.0-46.0 [facility] Comment on above: Order Comment: Speci men Type: BLOOD SPECIMEN Ordering Facility: [facility] Address: [address] [place] [address] Performed By: #### 5 7021-8 #### [facility] [place] [id number] [place] [address] [place] Hemoglobin (Bld) [Mass/Vol] 13.5 g/dL Normal 11.5-15.5 [facility] Comment on above: Order Comment: Speci men Type: BLOOD SPECIMEN Ordering Facility: [facility] Address: [address] [place], [place] [id number] Performed By: #### 5 7021-8 #### [facility] IA [id number] [address] [place] [address] [place] Immature granulocytes (Bld) [#/Vol] 10*3/uL Normal <0.10 [facility] Comment on above: Order Comment: Speci men Type: BLOOD SPECIMEN Ordering Facility: [facility] Address: [address] [place], [place] [id number] Performed By: #### 5 7021-8 #### [facility] CLIA [id number] [place] Immature granulocytes/100 WBC (Bld) 0.3 % Normal [facility] Comment on above: Order Comment: Speci men Type: BLOOD SPECIMEN Ordering Facility: [facility] Address: [address] [place], [place] [id number] Performed By: #### 5 7021-8 #### [facility] CLIA [id number] [place] [address] [place] Lymphocytes (Bld) [#/Vol] 1.40 10*3/uL Normal 1.00-4.00 [facility] Comment on above: Order Comment: Speci men Type: BLOOD SPECIMEN Ordering Facility: [facility] Address: [address] [place], [place] [id number] Performed By: #### 5 7021-8 #### [facility] [place] [id number] [id number] [place] Lymphocytes/100 WBC (Bld) 20.6 % Normal [facility] Comment on above: Order Comment: Speci men Type: BLOOD SPECIMEN Ordering Facility: [facility] Address: [address] [place], [place] [address] Performed By: #### 5 7021-8 #### [facility] [place] [id number] [address] [place] [address] [place] MCH (RBC) [Entitic mass] 29.2 pg Normal 26.0-34.0 [facility] Comment on above: Order Comment: Speci men Type: BLOOD SPECIMEN Ordering Facility: [facility] Address: [address] [place], [place] [address] Performed By: #### 5 7021-8 #### [facility] CLIA [id number] [address] [place] [address] [place] MCHC (RBC) [Mass/Vol] 31.4 g/dL Normal 30.5-36.0 [facility] Comment on above: Order Comment: Speci men Type: BLOOD SPECIMEN Ordering Facility: [facility] Address: [address] [place], [place] [address] Performed By: #### 5 7021-8 #### [facility] CLIA [id number] [address] [place] MCV (RBC) [Entitic vol] 92.9 fL Normal 80.0-100.0 [facility] Comment on above: Order Comment: Speci men Type: BLOOD SPECIMEN Ordering Facility: [facility] Address: [address] [place], [place] [address] Performed By: #### 5 7021-8 #### [facility] [place] [id number] [address] [place] [address] [place] Monocytes (Bld) [#/Vol] 0.48 10*3/uL Normal <0.87 [facility] Comment on above: Order Comment: Speci men Type: BLOOD SPECIMEN Ordering Facility: [facility] Address: [address] [place], [place] [address] Performed By: #### 5 7021-8 #### [facility] [place] [id number] [address] [place] Monocytes/100 WBC (Bld) 7.1 % Normal [facility] Comment on above: Order Comment: Speci men Type: BLOOD SPECIMEN Ordering Facility: [facility] Address: [address] [place], [place] [address] Performed By: #### 5 7021-8 #### [facility] CLIA [id number] [address] [place] [address] [place] Neutrophils (Bld) [#/Vol] 4.81 10*3/uL Normal 1.45-7.50 [facility] Comment on above: Order Comment: Speci men Type: BLOOD SPECIMEN Ordering Facility: [facility] Address: [address] [place], [place] [address] Performed By: #### 5 7021-8 #### [facility] [place] [id number] [address] [place] Neutrophils/100 WBC (Bld) 71.0 % Normal [facility] Comment on above: Order Comment: Speci men Type: BLOOD SPECIMEN Ordering Facility: [facility] Address: [address] [place], [place] [address] Performed By: #### 5 7021-8 #### [facility] [place] [id number] [address] [place] [address] [place] Nucleated RBC (Bld) [#/Vol] 10*3/uL Normal <0.01 [facility] Comment on above: Order Comment: Speci men Type: BLOOD SPECIMEN Ordering Facility: [facility] Address: [address] [place] [address] Performed By: #### 5 7021-8 #### [facility] [place] [id number] [address] [place] Nucleated RBC/100 WBC (Bld) [Ratio] 0.0 /100 WBC Normal [facility] Comment on above: Order Comment: Speci men Type: BLOOD SPECIMEN Ordering Facility: [facility] Address: [address] [place], [place] [address] Performed By: #### 5 7021-8 #### [facility] [place] [id number] [address] [place] [address] [place] Platelet mean volume (Bld) [Entitic vol] 10.5 fL Normal 9.0-12.7 [facility] l Comment on above: Order Comment: Speci men Type: BLOOD SPECIMEN Ordering Facility: [facility] Address: [address] [place], [place] [address] Performed By: #### 5 7021-8 #### [facility] [place] [id number] [address] [place] [address] [place] Platelets (Bld) [#/Vol] 305 10*3/uL Normal 150-400 [facility] Comment on above: Order Comment: Speci men Type: BLOOD SPECIMEN Ordering Facility: [facility] Address: [address] [place] [address] Performed By: #### 5 7021-8 #### [facility] [place] [id number] [address] [place] [address] [place] RBC (Bld) [#/Vol] 4.63 10*6/uL Normal 3.90-5.20 [facility] Comment on above: Order Comment: Speci men Type: BLOOD SPECIMEN Ordering Facility: [facility] Address: [address] [place] [address] Performed By: #### 5 7021-8 #### [facility] [place] [id number] [address] [place] WBC (Bld) [#/Vol] 6.78 10*3/uL Normal 3.70-11.00 [facility] Comment on above: Order Comment: Speci men Type: BLOOD SPECIMEN Ordering Facility: [facility] Address: [address] [place] [address] Performed By: #### 5 7021-8 #### [facility] [place] [id number] [address] [place] [address] [place] Basophils (Bld) [#/Vol] <0.11 k/uL [facility] Basophils/100 WBC (Bld) 0.3 % [facility] Differential cell count method Nom (Bld) Auto [facility] Eosinophils (Bld) [#/Vol] 0.05 10*3/uL <0.46 k/uL [facility] Eosinophils/100 WBC (Bld) 0.7 % [facility] Erythrocyte distribution width (RBC) [Ratio] 12.7 % 11.5 - 15.0 % [facility] Hematocrit (Bld) [Volume fraction] 43.0 % 36.0 - 46.0 % [facility] Hemoglobin (Bld) [Mass/Vol] 13.5 g/dL 11.5 - 15.5 g/dL [facility] Immature granulocytes (Bld) [#/Vol] <0.10 k/uL [facility] Immature granulocytes/100 WBC (Bld) 0.3 % [facility] Lymphocytes (Bld) [#/Vol] 1.40 10*3/uL 1.00 - 4.00 k/uL [facility] Lymphocytes/100 WBC (Bld) 20.6 % [facility] MCH (RBC) [Entitic mass] 29.2 pg 26.0 - 34.0 pg [facility] MCHC (RBC) [Mass/Vol] 31.4 g/dL 30.5 - 36.0 g/dL [facility] MCV (RBC) [Entitic vol] 92.9 fL 80.0 - 100.0 fL [facility] Monocytes (Bld) [#/Vol] 0.48 10*3/uL <0.87 k/uL [facility] Monocytes/100 WBC (Bld) 7.1 % [facility] Neutrophils (Bld) [#/Vol] 4.81 10*3/uL 1.45 - 7.50 k/uL [facility] Neutrophils/100 WBC (Bld) 71.0 % [facility] Nucleated RBC (Bld) [#/Vol] <0.01 k/uL [facility] Nucleated RBC/100 WBC (Bld) [Ratio] 0.0 /100 WBC [facility] Platelet mean volume (Bld) [Entitic vol] 10.5 fL 9.0 - 12.7 fL [facility] Platelets (Bld) [#/Vol] 305 10*3/uL 150 - 400 k/uL [facility] RBC (Bld) [#/Vol] 4.63 10*6/uL 3.90 - 5.2 0 m/uL [facility] WBC (Bld) [#/Vol] 6.78 10*3/uL 3.70 - 11. 00 k/uL [facility] Comprehensive metabolic 2000 panelon 05-02-2022 Albumin [Mass/Vol] 4.7 g/dL Normal 3.9-4.9 [facility] Comment on above: Order Comment: Speci men Type: BLOOD SPECIMEN Ordering Facility: [facility] Address: [address] [place] [address] Performed By: #### 2 4323-8 #### [facility] CLIA [id number] [facility] [place] [address] [place] ALP [Catalytic activity/Vol] 88 U/L Normal 34-123 [facility] Comment on above: Order Comment: Speci men Type: BLOOD SPECIMEN Ordering Facility: [facility] Address: [address] Performed By: #### 2 4323-8 #### [facility] CLIA [id number] [address] [place] [address] [place] ALT [Catalytic activity/Vol] 17 U/L Normal 7-38 [facility] Comment on above: Order Comment: Speci men Type: BLOOD SPECIMEN Ordering Facility: [facility] Address: [address] [place], [place] [address] Performed By: #### 2 4323-8 #### [facility] IA [id number] [address] [place] [address] [place] Anion gap [Moles/Vol] 9 mmol/L Normal 9-18 [facility] Comment on above: Order Comment: Speci men Type: BLOOD SPECIMEN Ordering Facility: [facility] Address: [address] [place], [place] [address] Performed By: #### 2 4323-8 #### [facility] [place] [id number] [place] [address] [place] AST [Catalytic activity/Vol] 20 U/L Normal 13-35 [facility] Comment on above: Order Comment: Speci men Type: BLOOD SPECIMEN Ordering Facility: [facility] Address: [address] [place], [place] [address] Performed By: #### 2 4323-8 #### [facility] CLIA [id number] [address] [place] [address] [place] Bilirubin [Mass/Vol] 0.3 mg/dL Normal 0.2-1.3 [facility] Comment on above: Order Comment: Speci men Type: BLOOD SPECIMEN Ordering Facility: [facility] Address: [address] [place] [address] Performed By: #### 2 4323-8 #### [facility] CLIA [id number] [address] [place] [address] [place] Calcium [Mass/Vol] 9.5 mg/dL Normal 8.5-10.2 [facility] Comment on above: Order Comment: Speci men Type: BLOOD SPECIMEN Ordering Facility: [facility] Address: [address] [place] [address] Performed By: #### 2 4323-8 #### [facility] CLIA [id number] [address] [place] [address] [place] Chloride [Moles/Vol] 101 mmol/L Normal 97-105 [facility] Comment on above: Order Comment: Speci men Type: BLOOD SPECIMEN Ordering Facility: [facility] Address: [address] [place] [address] Performed By: #### 2 4323-8 #### [facility] CLIA [id number] [address] [place] [address] [place] CO2 [Moles/Vol] 28 mmol/L Normal 22-30 [facility] Comment on above: Order Comment: Speci men Type: BLOOD SPECIMEN Ordering Facility: [facility] Address: [address] [place] [address] Performed By: #### 2 4323-8 #### [facility] CLIA [id number] [address] [place] [address] [place] Creatinine [Mass/Vol] 0.75 mg/dL Normal 0.58-0.96 [facility] Comment on above: Order Comment: Speci men Type: BLOOD SPECIMEN Ordering Facility: [facility] Address: [address] [place], [place] [address] Performed By: #### 2 4323-8 #### [facility] CLIA [id number] [address] [place] [address] [place] ESTIMATED GLOMERULAR FILTRATION RATE 95 mL/min/1.73m??? Normal >=60 [facility] Comment on above: Order Comment: Speci men Type: BLOOD SPECIMEN Ordering Facility: [facility] Address: [address] [place], [place] [address] Result Comment: Alma mated Glomerular Filtration Rate [...] GFR. Performed By: #### 2 4323-8 #### [facility] CLIA [id number] [address] [place] [address] [place] Glucose [Mass/Vol] 116 mg/dL High 74-99 [facility] Comment on above: Order Comment: Shashi lvoe Type: BLOOD SPECIMEN Ordering Facility: [facility] Address: [address] Result Comment: The [place] Diabetes Association (ADA) provides guidance for cutoff [...] Standards of Medical Care in Diabetes 2016, [place] [employer]. Diabetes Care. 2016.39(Suppl 1). Performed By: #### 2 4323-8 #### [facility] CLIA [id number] [address] [place] [address] [place] Potassium [Moles/Vol] 4.5 mmol/L Normal 3.7-5.1 [facility] Comment on above: Order Comment: Shashi love Type: BLOOD SPECIMEN Ordering Facility: [facility] Address: [address] [id number] Performed By: #### 2 4323-8 #### [facility] CLIA [id number] [address] [place] [address] [place] Protein [Mass/Vol] 8.0 g/dL Normal 6.3-8.0 [facility] Comment on above: Order Comment: Speci men Type: BLOOD SPECIMEN Ordering Facility: [facility] Address: [address] [place] [address] Performed By: #### 2 4323-8 #### [facility] CLIA [id number] [address] [place] [address] [place] Sodium [Moles/Vol] 138 mmol/L Normal 136-144 [facility] Comment on above: Order Comment: Speci men Type: BLOOD SPECIMEN Ordering Facility: [facility] Address: [address] [place] [address] Performed By: #### 2 4323-8 #### [facility] CLIA [id number] [address] [place] [address] [place] Urea nitrogen [Mass/Vol] 16 mg/dL Normal 7-21 [facility] Comment on above: Order Comment: Speci men Type: BLOOD SPECIMEN Ordering Facility: [facility] Address: [address] [place] [address] Performed By: #### 2 4323-8 #### [facility] CLIA [id number] [address] [place] [address] [place] Albumin [Mass/Vol] 4.7 g/dL 3.9 - 4.9 g/dL [facility] ALP [Catalytic activity/Vol] 88 U/L 34 - 123 U/L [facility] ALT [Catalytic activity/Vol] 17 U/L 7 - 38 U/L [facility] Anion gap [Moles/Vol] 9 mmol/L 9 - 18 mmol/L [facility] AST [Catalytic activity/Vol] 20 U/L 13 - 35 U/L [facility] Bilirubin [Mass/Vol] 0.3 mg/dL 0.2 - 1 .3 mg/dL [facility] Calcium [Mass/Vol] 9.5 mg/dL 8.5 - 10. 2 mg/dL [facility] Chloride [Moles/Vol] 101 mmol/L 97 - 10 5 mmol/L [facility] CO2 [Moles/Vol] 28 mmol/L 22 - 30 mmol/L [facility] Creatinine [Mass/Vol] 0.75 mg/dL 0.58 - 0.96 mg/dL [facility] Estimated Glomerular Filtration Rate 95 mL/min/1.73m >=60 mL/min/1.73m [facility] Glucose [Mass/Vol] 116 mg/dL High 74 - 99 mg/dL [facility] Potassium [Moles/Vol] 4.5 mmol/L 3.7 - 5.1 mmol/L [facility] Protein [Mass/Vol] 8.0 g/dL 6.3 - 8.0 g/dL [facility] Sodium [Moles/Vol] 138 mmol/L 136 - 144 mmol/L [facility] Urea nitrogen [Mass/Vol] 16 mg/dL 7 - 21 mg/dL [facility] Outside Flexible Sigmoidosco pyon 04-25-2022 Outside Flexible Sigmoidoscopy [id number] .[id number]:127 Normal [facility] PREG HCG QUALon 04-24-2022 , QUAL Negative Normal NEGATIVE [facility] Comment on above: Performed By: #### P REG #### [facility] [address] [place] [address] Dr. Kirby Espinoza Lab Reportson 04-23-2022 Lab Reports [id number] .[id number]:127 Normal [facility] Covid-19 PCR (CVDTB)on SARS-CoV-2 (COVID-19) RNA SUSAN+probe Ql (Unsp spec) Not detected Normal NOT DETECTED [facility] Comment on above: Result Comment: This test is not yet approved or cleared by the [place] FDA. When there are no FDA-approved or cleared tests available, and other criteria are met, FDA can make tests available under an emergency access mechanism called an Emergency Use Authorization (EUA). The EUA for this test is supported by the Optical [employer]er of Health and Human Service's (HHS's) declaration [...] consistent with SARS-CoV-2. Performed By: #### C VDTB #### [facility] [address] [place] [address] Dr. Kirby Espinoza Provider Letter FTon 03-26 Provider Letter [facility] March 26, 2022 [address]NA [address] [place] [address] KIRT REYNA 1970 Dear Kirt, We have [...] Sincerely, Dr. Vitaly Vaughn MD General Surgery [facility] Consent for Procedure/Surger yon 02-21-2022 Consent for Procedure/Surgery [id number] .[id number]:127 Normal [facility] Physician Referralon 022 Physician Referral [id number] .[id number]:127 Normal [facility] CBC AUTO DIFFon 02-04-2022 BASO # 0.0 103/ul Normal 0.0-0.1 [facility] Comment on above: Performed By: #### C BC #### [facility] [address] [place] [address] Dr. Kirby Espinoza Basophils/100 WBC (Bld) 0.3 % Normal 0.2-2.0 [facility] Comment on above: Performed By: #### C BC #### [facility] [address] [place] [address] Dr. Kirby Espinoza EO # 0.1 103/ul Normal 0.0-0.7 [facility] Comment on above: Performed By: #### C BC #### [facility] [address] [place] [address] Dr. Kirby Espinoza Eosinophils/100 WBC (Bld) 1.5 % Normal 0.9-7.0 [facility] Comment on above: Performed By: #### C BC #### [facility] [address] [place] [address] Dr. Kirby Espinoza Erythrocyte distribution width (RBC) [Ratio] 12.7 % Normal 11.0-15.0 [facility] Comment on above: Performed By: #### C BC #### [facility] [address] [place] [address] Dr. Kirby Espinoza Hematocrit (Bld) [Volume fraction] 38.4 % Normal 36.0-48.0 [facility] Comment on above: Performed By: #### C BC #### [facility] [address] [place] [address] Dr. Kirby Espinoza Hemoglobin (Bld) [Mass/Vol] 13.0 g/dL Normal 12.0-16.0 [facility] Comment on above: Performed By: #### C BC #### [facility] [address] [place] [address] Dr. Kirby Espinoza IG # 0.01 10e3/ul Normal 0.00-0.03 [facility] Comment on above: Performed By: #### C BC #### [facility] [address] [place] [address] Dr. Kirby Espinoza IG % 0.2 % Normal 0.0-0.5 [facility] Comment on above: Performed By: #### C BC #### [facility] [address] [place] [address] Dr. Kirby Espinoza LYMPH # 2.0 103/ul Normal 1.2-3.8 [facility] Comment on above: Performed By: #### C BC #### [facility] [address] [place] [address] Dr. Kirby Espinoza Lymphocytes/100 WBC (Bld) 30.2 % Normal 20.5-60.0 [facility] Comment on above: Performed By: #### C BC #### [facility] [address] [place] [address] Dr. Kirby Espinoza MANUAL DIFF REQ NO Normal [facility] Comment on above: Performed By: #### C BC #### [facility] [address] [place] [address] Dr. Kirby Espinoza MCH (RBC) [Entitic mass] 30.2 pg Normal 26.7-34.0 [facility] Comment on above: Performed By: #### C BC #### [facility] [address] [place] [address] Dr. Kirby Espinoza MCHC (RBC) [Mass/Vol] 33.9 g/dL Normal 29.9-35.2 [facility] Comment on above: Performed By: #### C BC #### [facility] [address] [place] [address] Dr. Kirby Espinoza MCV (RBC) [Entitic vol] 89.1 fL Normal 81.0-99.0 [facility] Comment on above: Performed By: #### C BC #### [facility] [address] [place] [address] Dr. Kirby Espinoza MONO # 0.5 103/ul Normal 0.3-0.8 [facility] Comment on above: Performed By: #### C BC #### [facility] [address] [place] [address] Dr. Kirby Espinoza Monocytes/100 WBC (Bld) 7.0 % Normal 1.7-12.0 [facility] Comment on above: Performed By: #### C BC #### [facility] [address] [place] [address] Dr. Kirby Espinoza NEUT # 4.0 103/ul Normal 1.4-6.5 [facility] Comment on above: Performed By: #### C BC #### [facility] [address] [place] [address] Dr. Kirby Espinoza Neutrophils/100 WBC (Bld) 60.8 % Normal 43.0-75.0 [facility] Comment on above: Performed By: #### C BC #### [facility] [address] [place] [address] Dr. Kirby Espinoza Platelet mean volume (Bld) [Entitic vol] 9.9 fL Normal 9.5-13.5 [facility] Comment on above: Performed By: #### C BC #### [facility] [address] [place] [address] Dr. Kirby Espinoza PLT 245 103/ul Normal 150-450 [facility] Comment on above: Performed By: #### C BC #### [facility] [address] [place] [address] Dr. Kirby Espinoza RBC 4.31 106/ul Normal 4.20-5.40 [facility] Comment on above: Performed By: #### C BC #### [facility] [address] [place] [address] Dr. Kirby Espinoza WBC 6.6 103/ul Normal 4.0-11.0 [facility] Comment on above: Performed By: #### C BC #### [facility] [address] [place] [address] Dr. Kirby Espinoza FREE THYROXINE INDEX T7on FTI 3.01 Normal 1.30-4.50 [facility] Comment on above: Performed By: #### C MP, T7, TSH, LIPID #### [facility] [address] [place] [address] Dr. Kirby Espinoza T3U 32.0 % Normal 30.0-39.0 [facility] Comment on above: Performed By: #### C MP, T7, TSH, LIPID #### [facility] [address] [place] [address] Dr. Kirby Espinoza T4 [Mass/Vol] 9.40 ug/dL Normal 4.80-13.90 [facility] Comment on above: Performed By: #### C MP, T7, TSH, LIPID #### [facility] [address] [place] [address] Dr. Kirby Espinoza GLYCOHEMOGLOBIN A1Con 2021 ADA RECOMMENDATION SEE BELOW Normal [facility] Comment on above: Result Comment: ADA RECOMMENDED LIMIT 4.0 - 6.0 ADA THERAPEUTIC TARGET < 7.0 ACTION SUGGESTED > 7.0 Performed By: #### A 1C ####[facility] [address] [place], [place] [address]PwDr. Kirby Espinoza Glucose [Mass/Vol] 114 mg/dL Normal [facility] Comment on above: Performed By: #### A 1C ####[facility] [address] [place] [address]Dr. Kirby Espinoza HbA1c (Bld) [Mass fraction] 5.6 % Normal 4.5-6.2 [facility] Comment on above: Performed By: #### A 1C ####[facility] [address] [address]Dr. Kirby Espinoza IRONon 02-04-2022 Iron [Mass/Vol] 61.0 ug/dL Normal 50.0-170.0 [facility] Comment on above: Performed By: #### I LUIGI #### [facility] [address] [address] [address] Kirby Espinoza LIPID PROFILEon 02-04-2022 CHOL-HDL RATIO NORM SEE BELOW Normal [facility] Comment on above: Result Comment: 3.3 - 4.4 LOW RISK 4.4 - 7.1 AVERAGE RISK 7.1 - 11.0 MODERATE RISK >11.0 HIGH RISK Performed By: #### C MP, T7, TSH, LIPID #### [facility] [address] [address] [address] Kirby Espinoza Cholesterol [Mass/Vol] 194 mg/dL Normal <=200 [facility] Comment on above: Performed By: #### C MP, T7, TSH, LIPID #### [facility] [address] [address] [address] Kirby Espinoza Cholesterol in HDL [Mass/Vol] 69 mg/dL Critically high 40-60 [facility] Comment on above: Performed By: #### C MP, T7, TSH, LIPID #### [facility] [address] [address] [address] Kirby Espinoza Cholesterol in LDL [Mass/Vol] 110.4 mg/dL Normal [facility] Comment on above: Performed By: #### C MP, T7, TSH, LIPID #### [facility] [address] [address] [address] Kirby Espinoza Cholesterol.total/Ch olesterol in HDL [Mass ratio] 2.8 {ratio} Normal [facility] Comment on above: Performed By: #### C MP, T7, TSH, LIPID #### [facility] [address] [address] [address] Kirby Espinoza HDL NORMAL > or = 60 mg/dl - LO W CARDIOVASCULAR RISK <40 mg/dl - HIGH CARDIOVASCULAR RISK Normal [facility] Comment on above: Performed By: #### C MP, T7, TSH, LIPID #### [facility] [address] [address] [address] Kirby Espinoza LDL CALC NORMAL SEE BELOW Normal [facility] Comment on above: Result Comment: <100 mg/dl OPTIMAL 100 - 129 mg/dl NEAR OR ABOVE OPTIMAL 130 - 159 mg/dl BORDERLINE HIGH 160 - 189 mg/dl HIGH >190 mg/dl VERY HIGH Performed By: #### C MP, T7, TSH, LIPID #### [facility] [address] [address] Dr. Kirby Espinoza Triglyceride [Mass/Vol] 73 mg/dL Normal <=150 [facility] Comment on above: Performed By: #### C MP, T7, TSH, LIPID #### [facility] [address] [address] [address] Kirby Espinoza VLDL CALC 14.6 mg/dL Normal [facility] Comment on above: Performed By: #### C MP, T7, TSH, LIPID #### [facility] [address] [address] [address] Kirby Espinoza OCC BLD IMMUNO SCREENon - OCCULT BLOOD Positive Abnormal NEGATIVE [facility] Comment on above: Performed By: #### O BSCRN #### [facility] [address] [place] [address] Dr. Kirby Espinoza PROF 14(COMP METB)on 022 Albumin [Mass/Vol] 3.6 g/dL Normal 3.4-5.0 [facility] Comment on above: Performed By: #### C MP, T7, TSH, LIPID ####[facility] [address] [address]Dr. Kirby Espinoza Albumin/Globulin [Mass ratio] 0.9 {ratio} Normal [facility] Comment on above: Performed By: #### C MP, T7, TSH, LIPID ####[facility] [address] [address]Dr. Kirby Espinoza ALP [Catalytic activity/Vol] 72 U/L Normal 46-116 [facility] Comment on above: Performed By: #### C MP, T7, TSH, LIPID ####[facility] [address] [place], [place] [address]Dr. Kirby Espinoza ALT [Catalytic activity/Vol] 21 U/L Normal 14-59 [facility] Comment on above: Performed By: #### C MP, T7, TSH, LIPID ####[facility] [address] [address]Dr. Kirby Espinoza Anion gap [Moles/Vol] 10.2 mmol/L Normal [facility] Comment on above: Performed By: #### C MP, T7, TSH, LIPID ####[facility] [address] [place], [place] [address]Dr. Kirby Espinoza AST [Catalytic activity/Vol] 17 U/L Normal 15-37 [facility] Comment on above: Performed By: #### C MP, T7, TSH, LIPID ####[facility] [address] [address]Dr. Kirby Espinoza Bilirubin [Mass/Vol] 0.5 mg/dL Normal 0.2-1.0 [facility] Comment on above: Performed By: #### C MP, T7, TSH, LIPID ####[facility] [address] [address]Dr. Kirby Espinoza Calcium [Mass/Vol] 8.6 mg/dL Normal 8.5-10.1 [facility] Comment on above: Performed By: #### C MP, T7, TSH, LIPID ####[facility] [address] [address]Dr. Kirby Espinoza Chloride [Moles/Vol] 103 mmol/L Normal 98-107 [facility] Comment on above: Performed By: #### C MP, T7, TSH, LIPID ####[facility] [address] [address]Dr. Kirby Espinoza CO2 [Moles/Vol] 27.4 mmol/L Normal 21.0-32.[address] [facility] Comment on above: Performed By: #### C MP, T7, TSH, LIPID ####[facility] [address] [place], [place] [address]Dr. Kirby Espinoza Creatinine [Mass/Vol] 0.70 mg/dL Normal 0.55-1.02 [facility] Comment on above: Performed By: #### C MP, T7, TSH, LIPID ####[facility] [address] [place], [place] [address]Dr. Kirby Espinoza EGFR-AF SWEDISH >60 Normal >=[address] [facility] Comment on above: Performed By: #### C MP, T7, TSH, LIPID ####[facility] [address] [place], [place] [address]Dr. Kirby Espinoza EGFR-NON AF SWEDISH >60 Normal >=60 [facility] Comment on above: Performed By: #### C MP, T7, TSH, LIPID ####[facility] [address] [address]Dr. Kirby Espinoza Globulin (S) [Mass/Vol] 3.8 g/dL Normal [facility] Comment on above: Performed By: #### C MP, T7, TSH, LIPID ####[facility] [address] [address]Dr. Kirby Espinoza Glucose [Mass/Vol] 103 mg/dL Normal 74-106 [facility] Comment on above: Performed By: #### C MP, T7, TSH, LIPID ####[facility] [address] [address]Dr. Kirby Espinoza Potassium [Moles/Vol] 3.6 mmol/L Normal 3.5-5.1 [facility] Comment on above: Performed By: #### C MP, T7, TSH, LIPID ####[facility] [address] [id number]. Kirby Espinoza Protein [Mass/Vol] 7.4 g/dL Normal 6.4-8.2 [facility] Comment on above: Performed By: #### C MP, T7, TSH, LIPID ####[facility] [address] [id number]. Kirby Espinoza Sodium [Moles/Vol] 137 mmol/L Normal 136-145 [facility] Comment on above: Performed By: #### C MP, T7, TSH, LIPID ####[facility] [address] [address]Dr. Kirby Espinoza Urea nitrogen [Mass/Vol] 15.0 mg/dL Normal 7.0-18.0 [facility] Comment on above: Performed By: #### C MP, T7, TSH, LIPID ####[facility] [address] [address]Dr. Kirby Espinoza Urea nitrogen/Creatinine [Mass ratio] 21.4 mg/mg Normal [facility] Comment on above: Performed By: #### C MP, T7, TSH, LIPID ####[facility] [address] [id number]. Kirby Espinoza TSHon 02-04-2022 TSH 1.513 uIU/mL Normal 0.358-3.740 [facility] Comment on above: Performed By: #### C MP, T7, TSH, LIPID #### [facility] [address] [address] [address] Kirby Espinoza VC VENOUS REFLUX CARL LMTon 0 12-28-2021 VC VENOUS REFLUX CARL LMT Patient: KIRT REYNA Exam Date: 12/28/2021 : 1970 Gender:F Ordering : DR SONDRA LIU . Admission #: [id number] Family : Order #: [id number] CLICK HERE TO VIEW EXAM RADIOLOGY REPORT [...] chronic thrombus visualized Compressibility: Normal Flow: Normal Stator Plate Washer: Dist/med 1.7mm, without reflux Tech Note: Competent SFJ and SPJ. Patent varicose vein 1.3mm without reflux. CONCLUSION: 1. No significantly dilated or incompetent superficial veins within the right or left lower extremity. Dictated by: Kristi Tamez M.D. on 12/31/2021 at 07:51 Approved by: Kristi Tamez M.D. on 12/31/2021 at 08:05 Normal [facility] Vital Signs Date Time Vital Sign Value Performing Clinician Facility 05-28-2024 15:50-0500 Body height 170.2 cm Phil Dougherty MD Work Phone: [facility] 05-28-2024 15:50-0500 Body mass index (BMI) [Ratio] 28.35 kg/m2 Phil Dougherty MD Work Phone: [facility] 05-28-2024 15:50-0500 Body weight 82.1 kg Phil Dougherty MD Work Phone: [facility] 05-28-2024 15:50-0500 Diastolic blood pressure 65 mm[Hg] Phil Dougherty MD Work Phone: [facility] 05-28-2024 15:50-0500 Heart rate 92 /min Phil Dougherty MD Work Phone: [facility] 05-28-2024 15:50-0500 SaO2% (BldA) [Mass fraction] 100 % Phil Dougherty MD Work Phone: [facility] 05-28-2024 15:50-0500 Systolic blood pressure 141 mm[Hg] Phil Dougherty MD Work Phone: [facility] 04-26-2024 15:00-0400 Body mass index (BMI) [Ratio] 28.38 kg/m2 Gerardo Mckinnon APRN.CLINIQUE COUNTER MANAGER Work Phone: [facility] 04-26-2024 15:00-0400 Body temperature 97.9 [degF] Gerardo Mckinnon APRN.CLINIQUE COUNTER MANAGER Work Phone: [facility] 04-26-2024 15:00-0400 Body weight 82.2 kg Gerardo Mckinnon APRN.CLINIQUE COUNTER MANAGER Work Phone: [facility] 04-26-2024 15:00-0400 Diastolic blood pressure 72 mm[Hg] Gerardo Dean EDUCATION MANAGERS.CLINIQUE COUNTER MANAGER Work Phone: [facility] 04-26-2024 15:00-0400 Heart rate 89 /min Gerardo Mckinnon EDUCATION MANAGERS.CLINIQUE COUNTER MANAGER Work Phone: [facility] 04-26-2024 15:00-0400 Respiratory rate 16 /min Gerardo Mckinnon EDUCATION MANAGERS.CLINIQUE COUNTER MANAGER Work Phone: [facility] 04-26-2024 15:00-0400 SaO2% (BldA) [Mass fraction] 100 % Gerardo Mckinnon EDUCATION MANAGERS.CLINIQUE COUNTER MANAGER Work Phone: [facility] 04-26-2024 15:00-0400 Systolic blood pressure 129 mm[Hg] Gerardo Mckinnon EDUCATION MANAGERS.CLINIQUE COUNTER MANAGER Work Phone: [facility] 12-12-2023 13:55-0400 Body height 170.2 cm Phil Dougherty MD Work Phone: [facility] 12-12-2023 13:55-0400 Body mass index (BMI) [Ratio] 27.72 kg/m2 Phil Dougherty MD Work Phone: [facility] 12-12-2023 13:55-0400 Body temperature 97.3 [degF] Phil Dougherty MD Work Phone: [facility] 12-12-2023 13:55-0400 Body weight 80.29 kg Phil Dougherty MD Work Phone: [facility] 12-12-2023 13:55-0400 Diastolic blood pressure 75 mm[Hg] Phil Dougherty MD Work Phone: [facility] 12-12-2023 13:55-0400 Heart rate 81 /min Phil Dougherty MD Work Phone: [facility] 12-12-2023 13:55-0400 SaO2% (BldA) [Mass fraction] 100 % Phil Dougherty MD Work Phone: [facility] 12-12-2023 13:55-0400 Systolic blood pressure 140 mm[Hg] Phil Dougherty MD Work Phone: [facility] 10-31-2023 16:12-0400 Body temperature 97.11 [degF] Phil Dougherty MD Work Phone: [facility] 10-31-2023 16:12-0400 Diastolic blood pressure 68 mm[Hg] Phil Dougherty MD Work Phone: [facility] 10-31-2023 16:12-0400 Heart rate 90 /min Phil Dougherty MD Work Phone: [facility] 10-31-2023 16:12-0400 SaO2% (BldA) [Mass fraction] 100 % Phil Dougherty MD Work Phone: [facility] 10-31-2023 16:12-0400 Systolic blood pressure 143 mm[Hg] Phil Dougherty MD Work Phone: [facility] 10-27-2023 14:12-0400 Body height 170.2 cm Paco Bonds MD Work Phone: [facility] 10-27-2023 14:12-0400 Body temperature 97 [degF] Paco Bonds MD Work Phone: [facility] 10-27-2023 14:12-0400 Body weight 80.4 kg Paco Bonds MD Work Phone: [facility] 10-27-2023 14:12-0400 Diastolic blood pressure 65 mm[Hg] Paco Bonds MD Work Phone: [facility] 10-27-2023 14:12-0400 Heart rate 93 /min Paco Bonds MD Work Phone: [facility] 10-27-2023 14:12-0400 Respiratory rate 16 /min Paco Bonds MD Work Phone: [facility] 10-27-2023 14:12-0400 SaO2% (BldA) [Mass fraction] 99 % Paco Bonds MD Work Phone: [facility] 10-27-2023 14:12-0400 Systolic blood pressure 144 mm[Hg] Paco Bonds MD Work Phone: [facility] 04-28-2023 13:56-0400 Body height 170.2 cm Paco Bonds MD Work Phone: [facility] 04-28-2023 13:56-0400 Body temperature 97.2 [degF] Paco Bonds MD Work Phone: [facility] 04-28-2023 13:56-0400 Body weight 79.83 kg Paco Bonds MD Work Phone: [facility] 04-28-2023 13:56-0400 Diastolic blood pressure 68 mm[Hg] Paco Bonds MD Work Phone: [facility] 04-28-2023 13:56-0400 Heart rate 84 /min Paco Bonds MD Work Phone: [facility] 04-28-2023 13:56-0400 Respiratory rate 16 /min Paco Bonds MD Work Phone: [facility] 04-28-2023 13:56-0400 SaO2% (BldA) [Mass fraction] 99 % Paco Bonds MD Work Phone: [facility] 04-28-2023 13:56-0400 Systolic blood pressure 155 mm[Hg] Paco Bonds MD Work Phone: [facility] 01-16-2023 15:22-0400 Body weight 78.02 kg Phil Dougherty MD Work Phone: [facility] 01-16-2023 15:22-0400 Diastolic blood pressure 75 mm[Hg] Phil Dougherty MD Work Phone: [facility] 01-16-2023 15:22-0400 Heart rate 78 /min Phil Dougherty MD Work Phone: [facility] 01-16-2023 15:22-0400 Systolic blood pressure 138 mm[Hg] Phil Dougherty MD Work Phone: [facility] 10-28-2022 14:17-0400 Body temperature 97.5 [degF] Toribio Michaud MD Work Phone: [facility] 10-28-2022 14:17-0400 Body weight 79.38 kg Toribio Michaud MD Work Phone: [facility] 10-28-2022 14:17-0400 Diastolic blood pressure 76 mm[Hg] Toribio Michaud MD Work Phone: [facility] 10-28-2022 14:17-0400 Heart rate 90 /min Toribio Michaud MD Work Phone: [facility] 10-28-2022 14:17-0400 Respiratory rate 16 /min Toribio Michaud MD Work Phone: [facility] 10-28-2022 14:17-0400 Systolic blood pressure 139 mm[Hg] Toribio Michaud MD Work Phone: [facility] 10-28-2022 13:40-0400 Diastolic blood pressure 76 mm[Hg] Paco Bonds MD Work Phone: [facility] 10-28-2022 13:40-0400 Heart rate 90 /min Paco Bonds MD Work Phone: [facility] 10-28-2022 13:40-0400 Systolic blood pressure 139 mm[Hg] Paco Bonds MD Work Phone: [facility] 10-28-2022 13:34-0400 Body height 170.2 cm Paco Bonds MD Work Phone: [facility] 10-28-2022 13:34-0400 Body temperature 97.5 [degF] Paco Bonds MD Work Phone: [facility] 10-28-2022 13:34-0400 Body weight 79.65 kg Paco Bonds MD Work Phone: [facility] 10-28-2022 13:34-0400 Respiratory rate 16 /min Paco Bonds MD Work Phone: [facility] 10-28-2022 13:34-0400 SaO2% (BldA) [Mass fraction] 100 % Paco Bonds MD Work Phone: [facility] 09-04-2022 10:29-0500 Body height 170.2 cm Paco Bonds MD Work Phone: [facility] 09-04-2022 10:29-0500 Body temperature 98.91 [degF] Paco Bonds MD Work Phone: [facility] 09-04-2022 10:29-0500 Body weight 78.56 kg Paco Bonds MD Work Phone: [facility] 09-04-2022 10:29-0500 Diastolic blood pressure 67 mm[Hg] Paco Bonds MD Work Phone: [facility] 09-04-2022 10:29-0500 Heart rate 97 /min Paco Bonds MD Work Phone: [facility] 09-04-2022 10:29-0500 Respiratory rate 16 /min Paco Bonds MD Work Phone: [facility] 09-04-2022 10:29-0500 SaO2% (BldA) [Mass fraction] 98 % Paco Bonds MD Work Phone: [facility] 09-04-2022 10:29-0500 Systolic blood pressure 142 mm[Hg] Paco Bonds MD Work Phone: [facility] 08-01-2022 10:47-0500 Body temperature 97.39 [degF] Toribio Michaud MD Work Phone: [facility] 08-01-2022 10:47-0500 Body weight 76.66 kg Toribio Michaud MD Work Phone: [facility] 08-01-2022 10:47-0500 Diastolic blood pressure 74 mm[Hg] Toribio Michaud MD Work Phone: [facility] 08-01-2022 10:47-0500 Heart rate 79 /min Toribio Michaud MD Work Phone: [facility] 08-01-2022 10:47-0500 Respiratory rate 16 /min Toribio Michaud MD Work Phone: [facility] 08-01-2022 10:47-0500 SaO2% (BldA) [Mass fraction] 99 % Toribio Michaud MD Work Phone: [facility] 08-01-2022 10:47-0500 Systolic blood pressure 111 mm[Hg] Toribio Michaud MD Work Phone: [facility] 07-24-2022 10:16-0500 Body temperature 98.1 [degF] Chair Chitra Work Phone: [facility] 07-24-2022 10:16-0500 Diastolic blood pressure 82 mm[Hg] Chair Musselshell Work Phone: [facility] 07-24-2022 10:16-0500 Heart rate 68 /min Chair Musselshell Work Phone: [facility] 07-24-2022 10:16-0500 Respiratory rate 16 /min Chair Musselshell Work Phone: [facility] 07-24-2022 10:16-0500 Systolic blood pressure 129 mm[Hg] Chair Musselshell Work Phone: [facility] 07-23-2022 12:10-0500 Body temperature 97.3 [degF] Toribio Michaud MD Work Phone: [facility] 07-23-2022 12:10-0500 Body weight 76.02 kg Toribio Michaud MD Work Phone: [facility] 07-23-2022 12:10-0500 Diastolic blood pressure 87 mm[Hg] Toribio Michaud MD Work Phone: [facility] 07-23-2022 12:10-0500 Heart rate 83 /min Toribio Michaud MD Work Phone: [facility] 07-23-2022 12:10-0500 Respiratory rate 16 /min Toribio Michaud MD Work Phone: [facility] 07-23-2022 12:10-0500 SaO2% (BldA) [Mass fraction] 98 % Toribio Michaud MD Work Phone: [facility] 07-23-2022 12:10-0500 Systolic blood pressure 137 mm[Hg] Toribio Michaud MD Work Phone: [facility] 07-22-2022 10:14-0500 Body temperature 98.01 [degF] Chair Chitra Work Phone: [facility] 07-22-2022 10:14-0500 Diastolic blood pressure 80 mm[Hg] Chair Chitra Work Phone: [facility] 07-22-2022 10:14-0500 Heart rate 84 /min Chair Chitra Work Phone: [facility] 07-22-2022 10:14-0500 Respiratory rate 16 /min Chair Musselshell Work Phone: [facility] 07-22-2022 10:14-0500 SaO2% (BldA) [Mass fraction] 98 % Chair Chitra Work Phone: [facility] 07-22-2022 10:14-0500 Systolic blood pressure 134 mm[Hg] Chair Musselshell Work Phone: [facility] 07-19-2022 10:18-0500 Body temperature 98.2 [degF] Chair Musselshell Work Phone: [facility] 07-19-2022 10:18-0500 Diastolic blood pressure 76 mm[Hg] Chair Chitra Work Phone: [facility] 07-19-2022 10:18-0500 Heart rate 82 /min Chair Chitra Work Phone: [facility] 07-19-2022 10:18-0500 Respiratory rate 18 /min Chair Musselshell Work Phone: [facility] 07-19-2022 10:18-0500 SaO2% (BldA) [Mass fraction] 99 % Chair Chitra Work Phone: [facility] 07-19-2022 10:18-0500 Systolic blood pressure 133 mm[Hg] Chair Buenrostro Work Phone: [facility] 07-18-2022 12:28-0500 Body temperature 97.9 [degF] Toribio Michaud MD Work Phone: [facility] 07-18-2022 12:28-0500 Body weight 79.83 kg Toribio Michaud MD Work Phone: [facility] 07-18-2022 12:28-0500 Diastolic blood pressure 85 mm[Hg] Toribio Michaud MD Work Phone: [facility] 07-18-2022 12:28-0500 Heart rate 79 /min Toribio Michaud MD Work Phone: [facility] 07-18-2022 12:28-0500 Respiratory rate 16 /min Toribio Michaud MD Work Phone: [facility] 07-18-2022 12:28-0500 SaO2% (BldA) [Mass fraction] 98 % Toribio Michaud MD Work Phone: [facility] 07-18-2022 12:28-0500 Systolic blood pressure 138 mm[Hg] Toribio Michaud MD Work Phone: [facility] 07-17-2022 10:21-0500 Body height 170.2 cm Paco Bonds MD Work Phone: [facility] 07-17-2022 10:21-0500 Body temperature 97.2 [degF] Paco Bonds MD Work Phone: [facility] 07-17-2022 10:21-0500 Body weight 77.02 kg Paco Bonds MD Work Phone: [facility] 07-17-2022 10:21-0500 Diastolic blood pressure 70 mm[Hg] Paco Bonds MD Work Phone: [facility] 07-17-2022 10:21-0500 Heart rate 78 /min Paco Bonds MD Work Phone: [facility] 07-17-2022 10:21-0500 Respiratory rate 16 /min Paco Bonds MD Work Phone: [facility] 07-17-2022 10:21-0500 SaO2% (BldA) [Mass fraction] 100 % Paco Bonds MD Work Phone: [facility] 07-17-2022 10:21-0500 Systolic blood pressure 133 mm[Hg] Paco Bonds MD Work Phone: [facility] 07-12-2022 10:13-0500 Body temperature 98.4 [degF] Chair Musselshell Work Phone: [facility] 07-12-2022 10:13-0500 Diastolic blood pressure 74 mm[Hg] Chair Musselshell Work Phone: [facility] 07-12-2022 10:13-0500 Heart rate 78 /min Chair Musselshell Work Phone: [facility] 07-12-2022 10:13-0500 Respiratory rate 18 /min Chair Chitra Work Phone: [facility] 07-12-2022 10:13-0500 SaO2% (BldA) [Mass fraction] 99 % Chair Musselshell Work Phone: [facility] 07-12-2022 10:13-0500 Systolic blood pressure 110 mm[Hg] Chair Musselshell Work Phone: [facility] 07-11-2022 12:09-0500 Body temperature 98.2 [degF] Toribio Michaud MD Work Phone: [facility] 07-11-2022 12:09-0500 Body weight 77.2 kg Toriboi Michaud MD Work Phone: [facility] 07-11-2022 12:09-0500 Diastolic blood pressure 74 mm[Hg] Toribio Michaud MD Work Phone: [facility] 07-11-2022 12:09-0500 Heart rate 63 /min Toribio Michaud MD Work Phone: [facility] 07-11-2022 12:09-0500 Respiratory rate 16 /min Toribio Michaud MD Work Phone: [facility] 07-11-2022 12:09-0500 SaO2% (BldA) [Mass fraction] 99 % Toribio Michaud MD Work Phone: [facility] 07-11-2022 12:09-0500 Systolic blood pressure 145 mm[Hg] Toribio Michaud MD Work Phone: [facility] 07-10-2022 09:07-0500 Body height 170.2 cm Gerardo Mckinnon APRN.CLINIQUE COUNTER MANAGER Work Phone: [facility] 07-10-2022 09:07-0500 Body temperature 97.9 [degF] Gerardo Mckinnon APRN.CLINIQUE COUNTER MANAGER Work Phone: [facility] 07-10-2022 09:07-0500 Body weight 77.02 kg Gerardo Mckinnon APRN.CLINIQUE COUNTER MANAGER Work Phone: [facility] 07-10-2022 09:07-0500 Diastolic blood pressure 68 mm[Hg] Gerardo Mckinnon APRN.CLINIQUE COUNTER MANAGER Work Phone: [facility] 07-10-2022 09:07-0500 Heart rate 87 /min Gerardo Mckinnon APRN.CLINIQUE COUNTER MANAGER Work Phone: [facility] 07-10-2022 09:07-0500 Respiratory rate 16 /min Gerardo Mckinnon APRN.CLINIQUE COUNTER MANAGER Work Phone: [facility] 07-10-2022 09:07-0500 SaO2% (BldA) [Mass fraction] 97 % Gerardo Mckinnon APRN.CLINIQUE COUNTER MANAGER Work Phone: [facility] 07-10-2022 09:07-0500 Systolic blood pressure 147 mm[Hg] Gerardo Mckinnon APRN.CLINIQUE COUNTER MANAGER Work Phone: [facility] 07-03-2022 12:15-0500 Body temperature 96.69 [degF] Toribio Michaud MD Work Phone: [facility] 07-03-2022 12:15-0500 Body weight 76.66 kg Toribio Michaud MD Work Phone: [facility] 07-03-2022 12:15-0500 Diastolic blood pressure 87 mm[Hg] Toribio Michaud MD Work Phone: [facility] 07-03-2022 12:15-0500 Heart rate 82 /min Toribio Michaud MD Work Phone: [facility] 07-03-2022 12:15-0500 Respiratory rate 18 /min Toribio Michaud MD Work Phone: [facility] 07-03-2022 12:15-0500 SaO2% (BldA) [Mass fraction] 96 % Toribio Michaud MD Work Phone: [facility] 07-03-2022 12:15-0500 Systolic blood pressure 153 mm[Hg] Toribio Michaud MD Work Phone: [facility] 06-28-2022 10:25-0500 Body temperature 98.1 [degF] Chair Musselshell Work Phone: [facility] 06-28-2022 10:25-0500 Diastolic blood pressure 55 mm[Hg] Chair Chitra Work Phone: [facility] 06-28-2022 10:25-0500 Heart rate 76 /min Chair Musselshell Work Phone: [facility] 06-28-2022 10:25-0500 Respiratory rate 16 /min Chair Chitra Work Phone: [facility] 06-28-2022 10:25-0500 SaO2% (BldA) [Mass fraction] 98 % Chair Chitra Work Phone: [facility] 06-28-2022 10:25-0500 Systolic blood pressure 127 mm[Hg] Chair Chitra Work Phone: [facility] 06-26-2022 12:42-0500 Body temperature 96.69 [degF] Toribio Michaud MD Work Phone: [facility] 06-26-2022 12:42-0500 Body weight 76.11 kg Toribio Michaud MD Work Phone: [facility] 06-26-2022 12:42-0500 Diastolic blood pressure 78 mm[Hg] Toribio Michaud MD Work Phone: [facility] 06-26-2022 12:42-0500 Heart rate 74 /min Toribio Michaud MD Work Phone: [facility] 06-26-2022 12:42-0500 Respiratory rate 18 /min Toribio Michaud MD Work Phone: [facility] 06-26-2022 12:42-0500 SaO2% (BldA) [Mass fraction] 100 % Toribio Michaud MD Work Phone: [facility] 06-26-2022 12:42-0500 Systolic blood pressure 135 mm[Hg] Toribio Michaud MD Work Phone: [facility] 06-24-2022 11:41-0500 Body height 170.2 cm Gerardo Mckinnon APRN.CLINIQUE COUNTER MANAGER Work Phone: [facility] 06-24-2022 11:41-0500 Body temperature 97.59 [degF] Gerardo Mckinnon APRN.CLINIQUE COUNTER MANAGER Work Phone: [facility] 06-24-2022 11:41-0500 Body weight 75.66 kg Gerardo Mckinnon APRN.CLINIQUE COUNTER MANAGER Work Phone: [facility] 06-24-2022 11:41-0500 Diastolic blood pressure 71 mm[Hg] Gerardo Dean EDUCATION MANAGERS.CLINIQUE COUNTER MANAGER Work Phone: [facility] 06-24-2022 11:41-0500 Heart rate 90 /min Gerardo Mckinnon APRN.CLINIQUE COUNTER MANAGER Work Phone: [facility] 06-24-2022 11:41-0500 Respiratory rate 16 /min Gerardo Mckinnon APRN.CLINIQUE COUNTER MANAGER Work Phone: [facility] 06-24-2022 11:41-0500 SaO2% (BldA) [Mass fraction] 99 % Gerardo Mckinnon APRN.CLINIQUE COUNTER MANAGER Work Phone: [facility] 06-24-2022 11:41-0500 Systolic blood pressure 141 mm[Hg] Gerardo Mckinnon APRN.CLINIQUE COUNTER MANAGER Work Phone: [facility] 06-21-2022 13:20-0500 Body temperature 97.9 [degF] Chair Musselshell Work Phone: [facility] 06-21-2022 13:20-0500 Diastolic blood pressure 80 mm[Hg] Chair Musselshell Work Phone: [facility] 06-21-2022 13:20-0500 Heart rate 81 /min Chair Musselshell Work Phone: [facility] 06-21-2022 13:20-0500 Respiratory rate 16 /min Chair Musselshell Work Phone: [facility] 06-21-2022 13:20-0500 SaO2% (BldA) [Mass fraction] 100 % Chair Musselshell Work Phone: [facility] 06-21-2022 13:20-0500 Systolic blood pressure 130 mm[Hg] Chair Chitra Work Phone: [facility] 06-19-2022 14:15-0500 Body temperature 98.01 [degF] Chair Chitra Work Phone: [facility] 06-19-2022 14:15-0500 Diastolic blood pressure 62 mm[Hg] Chair Musselshell Work Phone: [facility] 06-19-2022 14:15-0500 Heart rate 69 /min Chair Musselshell Work Phone: [facility] 06-19-2022 14:15-0500 Respiratory rate 16 /min Chair Chitra Work Phone: [facility] 06-19-2022 14:15-0500 Systolic blood pressure 117 mm[Hg] Chair Musselshell Work Phone: [facility] 06-19-2022 13:19-0500 Body temperature 97.2 [degF] Toribio Michaud MD Work Phone: [facility] 06-19-2022 13:19-0500 Body weight 76.2 kg Toribio Michaud MD Work Phone: [facility] 06-19-2022 13:19-0500 Diastolic blood pressure 72 mm[Hg] Toribio Michaud MD Work Phone: [facility] 06-19-2022 13:19-0500 Heart rate 78 /min Toribio Michaud MD Work Phone: [facility] 06-19-2022 13:19-0500 Respiratory rate 16 /min Toribio Michaud MD Work Phone: [facility] 06-19-2022 13:19-0500 SaO2% (BldA) [Mass fraction] 99 % Toribio Michaud MD Work Phone: [facility] 06-19-2022 13:19-0500 Systolic blood pressure 125 mm[Hg] Toribio Michaud MD Work Phone: [facility] 06-17-2022 13:33-0500 Body height 170.2 cm Paco Bonds MD Work Phone: [facility] 06-17-2022 13:33-0500 Body temperature 97.5 [degF] Paco Bonds MD Work Phone: [facility] 06-17-2022 13:33-0500 Body weight 75.75 kg Paco Bonds MD Work Phone: [facility] 06-17-2022 13:33-0500 Diastolic blood pressure 61 mm[Hg] Paco Bonds MD Work Phone: [facility] 06-17-2022 13:33-0500 Heart rate 79 /min Paco Bonds MD Work Phone: [facility] 06-17-2022 13:33-0500 Respiratory rate 18 /min Paco Bonds MD Work Phone: [facility] 06-17-2022 13:33-0500 SaO2% (BldA) [Mass fraction] 99 % Paco Bonds MD Work Phone: [facility] 06-17-2022 13:33-0500 Systolic blood pressure 131 mm[Hg] Paco Bonds MD Work Phone: [facility] 05-27-2022 11:01-0500 Body height 170.2 cm Paco Bonds MD Work Phone: [facility] 05-27-2022 11:01-0500 Body temperature 97.2 [degF] Paco Bonds MD Work Phone: [facility] 05-27-2022 11:01-0500 Body weight 77.38 kg Paco Bonds MD Work Phone: [facility] 05-27-2022 11:01-0500 Diastolic blood pressure 72 mm[Hg] Paco Bonds MD Work Phone: [facility] 05-27-2022 11:01-0500 Heart rate 90 /min Paco Bonds MD Work Phone: [facility] 05-27-2022 11:01-0500 Respiratory rate 16 /min Paco Bonds MD Work Phone: [facility] 05-27-2022 11:01-0500 SaO2% (BldA) [Mass fraction] 98 % Paco Bonds MD Work Phone: [facility] 05-27-2022 11:01-0500 Systolic blood pressure 150 mm[Hg] Paco Bonds MD Work Phone: [facility] 05-06-2022 10:46-0400 Body temperature 98.1 [degF] Paco Bonds MD Work Phone: [facility] 05-06-2022 10:46-0400 Body weight 77 kg Paco Bonds MD Work Phone: [facility] 05-06-2022 10:46-0400 Diastolic blood pressure 65 mm[Hg] Paco Bonds MD Work Phone: [facility] 05-06-2022 10:46-0400 Heart rate 82 /min Paco Bonds MD Work Phone: [facility] 05-06-2022 10:46-0400 Respiratory rate 16 /min Paco Bonds MD Work Phone: [facility] 05-06-2022 10:46-0400 SaO2% (BldA) [Mass fraction] 100 % Paco Bonds MD Work Phone: [facility] 05-06-2022 10:46-0400 Systolic blood pressure 126 mm[Hg] Paco Bonds MD Work Phone: [facility] 05-06-2022 09:10-0400 Body temperature 98.1 [degF] Toribio Michaud MD Work Phone: [facility] 05-06-2022 09:10-0400 Body weight 77.02 kg Toribio Michaud MD Work Phone: [facility] 05-06-2022 09:10-0400 Diastolic blood pressure 65 mm[Hg] Toribio Michaud MD Work Phone: [facility] 05-06-2022 09:10-0400 Heart rate 82 /min Toribio Michaud MD Work Phone: [facility] 05-06-2022 09:10-0400 Respiratory rate 16 /min Toribio Michaud MD Work Phone: [facility] 05-06-2022 09:10-0400 SaO2% (BldA) [Mass fraction] 100 % Toribio Michaud MD Work Phone: [facility] 05-06-2022 09:10-0400 Systolic blood pressure 126 mm[Hg] Toribio Michaud MD Work Phone: [facility] 05-02-2022 09:07-0400 Body weight 74.84 kg Phil Dougherty MD Work Phone: [facility] 05-02-2022 09:07-0400 Diastolic blood pressure 78 mm[Hg] Phil Dougherty MD Work Phone: [facility] 05-02-2022 09:07-0400 Heart rate 89 /min Phil Dougherty MD Work Phone: [facility] 05-02-2022 09:07-0400 SaO2% (BldA) [Mass fraction] 100 % Phil Dougherty MD Work Phone: [facility] 05-02-2022 09:07-0400 Systolic blood pressure 143 mm[Hg] Phil Dougherty MD Work Phone: [facility] 02-20-2022 14:21-0400 Blood Pressure Location Vitaly VAUGHN [facility] [place] 02-20-2022 14:21-0400 Diastolic blood pressure 74 mm[Hg] Vitaly VAUGHN [facility] [place] 02-20-2022 14:21-0400 Heart rate 72 /min Vitaly VAUGHN [facility] [place] 02-20-2022 14:21-0400 Respiratory rate 16 /min Vitaly VAUGHN [facility] [place] 02-20-2022 14:21-0400 Systolic blood pressure 116 mm[Hg] Vitaly VAUGHN [facility] [place] Encounters Encounter Date Encounter Type Care Provider Facility Start: 05-28-2024 End: 05-28-2024 ambulatory PHIL DOUGHERTY Facility:[facility] Start: 05-28-2024 End: 05-28-2024 Patient encounter procedure Phil Dougherty MD Work Phone: Colorectal Surgery Comment on above: Encounter for follow -up surveillance of anal cancer (Primary Dx) Start: 04-26-2024 End: 04-26-2024 Patient encounter procedure Gerardo Mckinnon EDUCATION MANAGERS.CLINIQUE COUNTER MANAGER Work Phone: Hematology/Oncology Start: 04-26-2024 End: 04-26-2024 ambulatory Gerardo Mckinnon EDUCATION MANAGERS.CLINIQUE COUNTER MANAGER Work Phone: Hematology/Oncology Comment on above: Anal cancer (HCC) (P rimary Dx); POTS (postural orthostatic tachycardia syndrome) Start: 01-06-2024 End: 01-06-2024 ambulatory RASHI ZI Not Available Start: 12-12-2023 End: 12-12-2023 ambulatory PHIL DOUGHERTY Facility:[facility] Start: 12-12-2023 End: 12-12-2023 Patient encounter procedure Phil Dougherty MD Work Phone: Colorectal Surgery Comment on above: Anal itching (Primar y Dx); Diarrhea, unspecified type Start: 10-31-2023 End: 10-31-2023 ambulatory PHIL DOUGHERTY Facility:[facility] Start: 10-31-2023 End: 10-31-2023 Patient encounter procedure [...] tachycardia syndrome) Start: 10-27-2023 End: 10-27-2023 ambulatory [facility] Facility:[facility] Start: 10-01-2023 End: 10-01-2023 [facility] Facility:[facility] Start: 10-01-2023 End: 10-01-2023 Subsequent hospital visit by physician Arrival Time Radiology Work Phone: Radiology [facility] Comment on above: Malignant neoplasm o f anus (HCC) [C21.0] Start: 09-29-2023 [facility] Facility:[facility] Start: 09-29-2023 End: 09-29-2023 Subsequent hospital visit by physician [facility] (1.5t) [facility]IO [facility] Comment on above: Malignant neoplasm o f anus (HCC) [C21.0] Start: 09-12-2023 Telephone encounter Toribio Michaud MD Work Phone: Cancer [facility] Comment on above: Orders Start: 07-11-2023 End: 07-11-2023 ambulatory PHIL DOUGHERTY Facility:[facility] Start: 05-27-2023 Telephone encounter Phil marrero MD Work Phone: Colorectal Surgery Comment on above: Appointment Start: 04-28-2023 End: 04-28-2023 Office outpatient visit 25 minutes Paco Bonds MD Work Phone: Hematology/Oncology Comment on above: Anal cancer (HCC) (P rimary Dx); POTS (postural orthostatic tachycardia syndrome) Start: 02-27-2023 Telephone encounter Toribio Michaud MD Work Phone: Radiation Oncology Comment on above: Results Start: 02-10-2023 Telephone encounter Toribio Michaud MD Work Phone: Radiation Oncology Comment on above: Patient Question Start: 01-16-2023 End: 01-16-2023 Patient encounter procedure [...] (postural orthostatic tachycardia syndrome) Start: 10-11-2022 ambulatory [facility] Facility: [facility] Start: 10-11-2022 End: 10-11-2022 Subsequent hospital visit by physician [facility] Radiology Comment on above: Malignant neoplasm o [...] Dx); POTS (postural orthostatic tachycardia syndrome) Start: 08-28-2022 End: 08-28-2022 Subsequent hospital visit by physician Arrival Time Radiology Work Phone: Radiology [facility] Comment on above: Anal cancer (HCC) [C 21.0] Start: 08-16-2022 Telephone encounter Leandra Whitehead Hematology/Oncology Comment on above: Care Coordination (L danette Request) Start: 08-01-2022 End: 08-01-2022 Patient encounter procedure Lab/Port Brenda Buenrostro Work Phone: Radiation Oncology Comment on above: Anal cancer (HCC) Anal cancer (HCC) (P rimary Dx) Start: 07-26-2022 ambulatory Rossi Bradley [employer] Comment on above: Art Therapy Start: 07-25-2022 Patient encounter procedure [facility] Provider [facility] Department Start: 07-25-2022 Radiation Oncology Note Toribio mackay MD Work Phone: Radiation Oncology Comment on above: Completion Note Start: 07-24-2022 End: 07-24-2022 ambulatory Chair 21 Musselshell Work Phone: Hematology/Oncology Comment on above: Anal cancer (HCC) (P rimary Dx); POTS (postural orthostatic tachycardia syndrome) Start: 07-23-2022 End: 07-23-2022 Patient encounter procedure Toribio Michaud MD Work Phone: Radiation Oncology Comment on above: Anal cancer (HCC) (P rimary Dx) Start: 07-22-2022 End: 07-22-2022 ambulatory Chair 21 Musselshell Work Phone: Hematology/Oncology Comment on above: Anal cancer (HCC) (P rimary Dx); POTS (postural orthostatic tachycardia syndrome) Start: 07-19-2022 End: 07-19-2022 ambulatory Chair 21 Musselshell Work Phone: Hematology/Oncology Comment on above: Anal cancer (HCC) (P rimary Dx); POTS (postural orthostatic tachycardia syndrome) Start: 07-18-2022 End: 07-18-2022 Patient encounter procedure Toribio Michaud MD Work Phone: Radiation Oncology Comment on above: Anal cancer (HCC) (P rimary Dx) Start: 07-17-2022 Telephone encounter Paco ryder MD [facility] Phone[facility] Comment on above: Referral Information (Cardiology) Start: 07-17-2022 End: 07-17-2022 ambulatory Paco Bonds MD Work Phone: Hematology/Oncology Comment on above: Anal cancer (HCC) (P rimary Dx); POTS (postural orthostatic tachycardia syndrome) Start: 07-17-2022 End: 07-17-2022 Patient encounter procedure Paco Bonds MD Work Phone: [employer] Start: 07-15-2022 ambulatory TORIBIO MICHAUD Facility:[facility] Start: 07-12-2022 End: 07-12-2022 ambulatory Chair Bryon uBenrostro Work Phone: Hematology/Oncology Comment on above: Anal [...] Dx) Start: 06-28-2022 Telephone encounter Frida Torres [facility] Work Phone: Hematology/Oncology Comment on above: Medication [...] Dx) Start: 06-18-2022 Refill Frida Ham leeroy [facility] Work Phone: Hematology/Oncology Comment on above: Refill Request Start: 06-17-2022 End: 06-17-2022 ambulatory Paco Bonds MD Work Phone: Hematology/Oncology Comment on above: Anal cancer (HCC) (P rimary Dx); POTS (postural orthostatic tachycardia syndrome) Start: 06-17-2022 End: 06-17-2022 Patient encounter procedure Paco Bonds MD Work Phone: [place] Start: 06-14-2022 Telephone encounter Magdalena Amaya RN Work Phone: Hematology/Oncology Comment on above: Care Coordination (M edication change) Start: 06-14-2022 End: 06-14-2022 ambulatory Chair 21 Chitra Work Phone: Hematology/Oncology [...] above: Nutrition Telephone Start: 05-27-2022 End: 05-27-2022 Subsequent hospital visit by physician Toribio Michaud MD Work Phone: Radiology [facility] Start: 05-27-2022 End: 05-27-2022 ambulatory Paco Bonds [...] on above: Care Coordination (A ntiemetics) Start: 05-21-2022 End: 05-21-2022 Subsequent hospital visit by physician Arrival Time Radiology Work Phone: Radiology [facility] Comment on above: Anal cancer (HCC) [C 21.0] Start: 05-17-2022 Telephone encounter Frida Gloria Natividad [facility] Work Phone: Hematology/Oncology Comment on above: Medication Update Start: 05-06-2022 End: 05-06-2022 ambulatory Heidi Horta LPN Radiation Oncology Comment on above: Patient Education Patient Education; O pened In Error Anal cancer (HCC) Start: 05-06-2022 End: 05-06-2022 Patient encounter procedure Paco Bonds MD Work Phone: [facility] Comment on above: Anal cancer (HCC) Start: 05-02-2022 End: 05-03-2022 ambulatory PHIL DOUGHERTY Facility:[facility] Start: 05-02-2022 End: 05-02-2022 Patient encounter procedure Phil Dougherty MD Work Phone: Colorectal Surgery Comment on above: Rectal mass (Primary Dx); Anal cancer (HCC) Start: 04-24-2022 End: 04-25-[address] VITALY VAUGHN Facility:[facility] Start: 04-23-2022 Encounter for preprocedural laboratory examination DR VITALY VAUGHN [facility] Start: 04-20-2022 End: 04-21-[address] VITALY VAUGHN Facility:[facility] Start: 04-20-2022 End: 04-21-2022 Encounter for preprocedural laboratory examination DR VITALY VAUGHN Facility:[facility] Start: 03-13-[address] VITALY VAUGHN Facilit y:[facility] Start: 03-09-[address] VITALY VAUGHN Facilit y:[facility] Start: 02-20-2022 End: 02-21-2022 [facility]ulatory [facility] Start: 02-20-2022 End: 02-20-2022 Patient encounter procedure Vitaly VAUGHN [facility] [place] Start: 2022 ambulatory Sondra Liu Facility: [facility] Start: 02-05-2022 Encounter for genera l adult medical examination without abnormal findings DR SONDRA LIU [facility] Start: 02-04-2022 End: 02-05-[address] SONDRA LIU Facility:[facility] Start: 02-04-2022 End: 02-05-2022 Encounter for general adult medical examination without abnormal findings DR SONDRA LIU Facility:[facility] Start: 12-28-2021 End: 12-29-[address] SONDRA LIU Facility:[facility] Start: 12-05-[address] SONDRA LIU Facility :[facility] Procedures Date Procedure Procedure Detail Performing Clinician Start: 10-01-2023 Ct thorax w/o contrast material Toribio montgomery MD Work Phone: Start: 09-29-2023 Mri pelvis w/o & w/contrast material Toribio Michaud MD Work Phone: Start: 10-11-2022 Mri pelvis w/o & w/contrast material Toribio Michaud MD Work Phone: Start: 08-28-2022 Ct abdomen & pelvis w/contrast material Paco Bonds MD Work Phone: Start: 08-28-2022 Ct thorax w/contrast material Paco ryder MD Work Phone: Start: 08-28-2022 Blood count complete auto&auto difrntl wbc Paco Bonds MD Work Phone: Start: 08-01-2022 CBC panel - Blood by Automated count Toribio Michaud MD Work Phone: Start: 08-01-2022 Comprehensive metabolic panel Toribio Micahud MD Work Phone: Start: 07-17-2022 Blood count complete auto&auto difrntl wbc Paco Bonds MD Work Phone: Start: 07-10-2022 Blood count complete auto&auto difrntl wbc Paco Bonds MD Work Phone: Start: 06-24-2022 Blood count complete auto&auto difrntl wbc Paco Bonds MD Work Phone: Start: 06-14-2022 Blood count complete auto&auto difrntl wbc Paco Bonds MD Work Phone: Start: 05-27-2022 Blood count complete auto&auto difrntl wbc Paco Bonds MD Work Phone: Start: 05-21-2022 Ct abdomen w/contrast material Phil walker MD Work Phone: Start: 05-21-2022 Ct thorax w/contrast material Phil marrero MD Work Phone: Start: 07-14-2018 Esophagogastroduodenoscopy Vitaly VAUGHN Dilatation of esophageal stricture Vitaly VAUGHN Excision of cyst of ovary Mayelin VAUGHN Plan of Treatment Date Care Activity Detail Author Start: 04-26-2027 Diabetes Screening Diabetes Screenin [facility] Start: 10-26-2026 Diabetes Screening Diabetes Screenin [facility] Start: 04-28-2026 Diabetes Screening Diabetes Screenin [facility] Start: 10-28-2025 DIABETES SCREEN [facility] Start: 08-28-2025 DIABETES SCREEN [facility]CREEN [facility] Start: 08-01-2025 DIABETES SCREEN DIABETES [facility]CREEN [facility] Start: 07-17-2025 DIABETES SCREEN DIABETES SCREEN [facility] Start: 07-10-2025 DIABETES SCREEN DIABETES SCREEN [facility] Start: 07-01-2025 DIABETES SCREEN DIABETES SCREEN [facility] Start: 06-24-2025 DIABETES SCREEN DIABETES SCREEN [facility] Start: 06-14-2025 DIABETES SCREEN DIABETES SCREEN [facility] Start: 05-27-2025 DIABETES SCREEN DIABETES SCREEN [facility] Start: 05-02-2025 DIABETES SCREEN DIABETES SCREEN [facility] Start: 11-26-2024 End: 11-26-2024 Patient encounter procedure 11/26/2024 3:40 PM EDT Office Visit Colorectal Surgery [address] [place] [id number] Phil Dougherty MD [address] [place] [address] Est Pt: 6 mo f/up Colorectal Surgery Comment on above: Est Pt: 6 mo f/up Start: 11-01-2024 End: 11-01-2024 Follow-up encounter 11/01/2024 3:00 PM EDT Visit (SP) Office Hematology/Oncology [address] [place] [address] Paco Bonds MD [address] [place] [address] 6 month follow up lab-SEETorito Michaud before Hematology/Oncology Comment on above: 6 month follow up wilder beaulieu-VITO Michaud before Start: 11-01-2024 End: 11-01-2024 Patient encounter procedure Radiation On cology Comment on above: Followup 6 month follow up la b Start: 10-28-2024 End: 10-28-2024 Patient encounter procedure 10/28/2024 10:15 AM EDT Appointment Radiology Pet [facility] [address] [place] [address] CT CHEST A Radiology Pet CT Comment on above: CT CHEST A Start: 10-26-2024 End: 11-25-2024 CT Abdomen W contrast IV CT ABDOMEN W IVCON Radiology Routine Expected: 10/26/2024, Expires: 11/25/2024 [facility] Comment on above: Expected: 10/26/2024 , Expires: 11/25/2024 Start: 10-26-2024 End: 11-25-2024 CT Chest W contrast IV CT CHEST W IVCON Radiology Routine Expected: 10/26/2024 (Approximate), Expires: 11/25/2024 [facility] Work Phone: Comment on above: Expected: 10/26/2024 (Approximate), Expires: 11/25/2024 Start: 10-26-2024 End: 11-25-2024 MR Pelvis WO contrast MRI RECTUM WO/W IVCON Radiology Routine Malignant neoplasm of pelvis (HCC) Expected: 10/26/2024 (Approximate), Expires: 11/25/2024 [facility] Comment on above: Expected: 10/26/2024 (Approximate), Expires: 11/25/2024 Start: 10-26-2024 End: 10-26-2024 Patient encounter procedure 10/26/2024 10:00 AM EDT Appointment [facility] [address] [place] [address] MRI RECTUM [facility] Comment on above: MRI RECTUM Start: 10-25-2024 End: 01-24-2025 CBC W Auto Differential panel - Blood COMPLETE BLOOD COUNT AND DIFFERENTIAL Lab Routine Anal cancer (HCC) POTS (postural orthostatic tachycardia syndrome) Expected: 10/25/2024, Expires: 01/24/2025 [facility] Work Phone: Comment on above: Expected: 10/25/2024 , Expires: 01/24/2025 Start: 10-25-2024 End: 01-24-2025 Comprehensive metabolic 2000 panel - Serum or Plasma COMPREHENSIVE METABOLIC PANEL Lab Routine Anal cancer (HCC) POTS (postural orthostatic tachycardia syndrome) Expected: 10/25/2024, Expires: 01/24/2025 [facility] Comment on above: Expected: 10/25/2024 , Expires: 01/24/2025 Start: 04-30-2024 End: 04-30-2024 Patient encounter procedure 04/30/2024 4:00 PM EDT Office Visit Colorectal Surgery [address] [place] [id number] Phil Dougherty MD [address] [place] [phone] est pt: 6 month follow up Colorectal Surgery Comment on above: est pt: 6 month foll ow up Start: 04-27-2024 End: 10-26-2024 CBC W Auto Differential panel - Blood COMPLETE BLOOD COUNT AND DIFFERENTIAL Lab Routine Anal cancer (HCC) POTS (postural orthostatic tachycardia syndrome) Expected: 04/27/2024 (Approximate), Expires: 10/26/2024 [facility] Work Phone: Comment on above: Expected: 04/27/2024 (Approximate), Expires: 10/26/2024 Start: 04-27-2024 End: 10-26-2024 Comprehensive metabolic 2000 panel - Serum or Plasma COMPREHENSIVE METABOLIC PANEL Lab Routine Anal cancer (HCC) POTS (postural orthostatic tachycardia syndrome) Expected: 04/27/2024 (Approximate), Expires: 10/26/2024 [facility] Work Phone: Comment on above: Expected: 04/27/2024 (Approximate), Expires: 10/26/2024 Start: 04-26-2024 End: 04-26-2024 Follow-up encounter 04/26/2024 2:45 PM EDT Visit (SP) Office Hematology/Oncology [address] [place] [address] [place] [address] Paco Bonds MD [address] [place] [address] 6 month follow up with lab Hematology/Oncology Comment on above: 6 month follow up [facility] Start: 04-26-2024 End: 04-26-2024 Patient encounter procedure 04/26/2024 2:30 PM EDT Office Visit [facility] [address] [place] [address] [place] [address] 6 month follow up with lab [facility] Comment on above: 6 month follow up [facility] Start: 03-14-2024 Covid-19 Vaccine ( season) Covid-19 Vaccine ( season) [facility] Start: 03-14-2024 Covid-19 Vaccine ( season) Covid-19 Vaccine ( season) [facility] Start: 03-14-2024 Influenza vaccination [facility] Start: 10-28-2023 End: 04-28-2024 CBC W Auto Differential panel - Blood CBC + DIFF Lab Routine Anal cancer (HCC) POTS (postural orthostatic tachycardia syndrome) Expected: 10/28/2023 (Approximate), Expires: 04/28/2024 [facility] Work Phone: Comment on above: Expected: 10/28/2023 (Approximate), Expires: 04/28/2024 Start: 10-28-2023 End: 04-28-2024 Comprehensive metabolic 2000 panel - Serum or Plasma COMP METABOLIC PANEL Lab Routine Anal cancer (HCC) POTS (postural orthostatic tachycardia syndrome) Expected: 10/28/2023 (Approximate), Expires: 04/28/2024 [facility] Work Phone: Comment on above: Expected: 10/28/2023 (Approximate), Expires: 04/28/2024 Start: 07-25-2023 End: 12-05-2023 Ct thorax w/o contrast material CT CHEST WO IVCON Radiology Routine Malignant neoplasm of anus (HCC) Expected: 07/25/2023, Expires: 12/05/2023 [facility] Work Phone: Comment on above: Expected: 07/25/2023 , Expires: 12/05/2023 Start: 07-25-2023 End: 12-05-2023 Mri pelvis w/o & w/contrast material MRI RECTUM WO/W IVCON Radiology Routine Malignant neoplasm of anus (HCC) Expected: 07/25/2023, Expires: 12/05/2023 [facility] Work Phone: Comment on above: Expected: 07/25/2023 , Expires: 12/05/2023 Start: 07-14-2023 Behavioral Health Screening Be havioral Health Screening [facility] Start: 07-14-2023 Depression Assessment Depression Ass essment [facility] Start: 04-29-2023 End: 10-29-2023 CBC W Auto Differential panel - Blood CBC + DIFF Lab Routine Anal cancer (HCC) POTS (postural orthostatic tachycardia syndrome) Expected: 04/29/2023 (Approximate), Expires: 10/29/2023 [facility] Work Phone: Comment on above: Expected: 04/29/2023 (Approximate), Expires: 10/29/2023 Start: 04-29-2023 End: 10-29-2023 Comprehensive metabolic 2000 panel - Serum or Plasma COMP METABOLIC PANEL Lab Routine Anal cancer (HCC) POTS (postural orthostatic tachycardia syndrome) Expected: 04/29/2023 (Approximate), Expires: 10/29/2023 [facility] Work Phone: Comment on above: Expected: 04/29/2023 (Approximate), Expires: 10/29/2023 Start: 04-28-2023 End: 06-28-2023 25-hydroxyvitamin D3 [Mass/volume] in Serum or Plasma VITAMIN D 25 HYDROXY Lab Routine Encounter for screening for osteoporosis Symptomatic menopausal or female climacteric states Rectal cancer (HCC) Expected: 04/28/2023, Expires: 06/28/2023 [facility] Work Phone: Comment on above: Expected: 04/28/2023 , Expires: 06/28/2023 Start: 03-14-2023 Covid-19 Vaccine () Covid-19 Vaccine () [facility] Start: 03-14-2023 Influenza vaccination [facility] Start: 12-02-2022 End: 09-04-2023 CBC W Auto Differential panel - Blood CBC + DIFF Lab Routine POTS (postural orthostatic tachycardia syndrome) Anal cancer (HCC) Expected: 12/02/2022 (Approximate), Expires: 09/04/2023 [facility] Work Phone: Comment on above: Expected: 12/02/2022 (Approximate), Expires: 09/04/2023 Start: 12-02-2022 End: 09-04-2023 Comprehensive metabolic 2000 panel - Serum or Plasma COMP METABOLIC PANEL Lab Routine POTS (postural orthostatic tachycardia syndrome) Anal cancer (HCC) Expected: 12/02/2022 (Approximate), Expires: 09/04/2023 [facility] Work Phone: Comment on above: Expected: 12/02/2022 (Approximate), Expires: 09/04/2023 Start: 10-14-2022 End: 10-04-2023 Mri pelvis w/o & w/contrast material MRI RECTUM WO/W IVCON Radiology Routine Malignant neoplasm of anus (HCC) Expected: 10/14/2022, Expires: 10/04/2023 [facility] Work Phone: Comment on above: Expected: 10/14/2022 , Expires: 10/04/2023 Start: 08-28-2022 End: 07-17-2023 CBC W Auto Differential panel - Blood CBC + DIFF Lab Routine Anal cancer (HCC) Expected: 08/28/2022 (Approximate), Expires: 07/17/2023 [facility] Work Phone: Comment on above: Expected: 08/28/2022 (Approximate), Expires: 07/17/2023 Start: 08-28-2022 End: 07-17-2023 Comprehensive metabolic 2000 panel - Serum or Plasma COMP METABOLIC PANEL Lab Routine Anal cancer (HCC) Expected: 08/28/2022 (Approximate), Expires: 07/17/2023 [facility] Work Phone: Comment on above: Expected: 08/28/2022 (Approximate), Expires: 07/17/2023 Start: 08-28-2022 End: 08-16-2023 Ct abdomen & pelvis w/contrast material CT ABD/PEL W IVCON Radiology Routine Anal cancer (HCC) Expected: 08/28/2022 (Approximate), Expires: 08/16/2023 [facility] Work Phone: Comment on above: Expected: 08/28/2022 (Approximate), Expires: 08/16/2023 Start: 08-28-2022 End: 08-16-2023 CT CHEST W IVCON CT CHEST W IVCON Radiology Routine Anal cancer (HCC) Expected: 08/28/2022 (Approximate), Expires: 08/16/2023 [facility] Work Phone: Comment on above: Expected: 08/28/2022 (Approximate), Expires: 08/16/2023 Start: 07-14-2022 DEPRESSION ASSESSMENT DEPRESSION ASS ESSMENT [facility] Start: 07-02-2022 End: 09-01-2022 CBC W Auto Differential panel - Blood CBC + DIFF Lab Routine Anal cancer (HCC) POTS (postural orthostatic tachycardia syndrome) Expected: 07/02/2022, Expires: 09/01/2022 [facility] Work Phone: Comment on above: Expected: 07/02/2022 , Expires: 09/01/2022 Start: 07-02-2022 End: 09-01-2022 Comprehensive metabolic 2000 panel - Serum or Plasma COMP METABOLIC PANEL Lab Routine Anal cancer (HCC) POTS (postural orthostatic tachycardia syndrome) Expected: 07/02/2022, Expires: 09/01/2022 [facility] Work Phone: Comment on above: Expected: 07/02/2022 , Expires: 09/01/2022 Start: 06-12-2022 End: 08-12-2022 Choriogonadotropin ( test) [Presence] in Urine HCG QUAL UR Lab Routine Anal cancer (HCC) Expected: 06/12/2022, Expires: 08/12/2022 [facility] Work Phone: Comment on above: Expected: 06/12/2022 , Expires: 08/12/2022 Start: 03-14-2022 Influenza vaccination INFLUENZA (#1) [facility] Start: 07-14-2021 DEPRESSION ASSESSMENT DEPRESSION ASS ESSMENT [facility] Start: 2019 SHINGRIX VACCINE (1 of 2) [facility] GRIX VACCINE (1 of 2) [facility] Start: 2014 COLOGUARD (FIT-DNA) COLOGUARD (FIT-D NA) [facility] Start: 2014 Colonoscopy COLONOSCOPY [facility] Start: 2014 COLORECTAL CANCER SCREENING CO LORECTAL CANCER SCREENING [facility] Start: [address] COLONOGRAPHY [facility] Start: 2014 FECAL OCCULT BLOOD FECAL OCCULT BLOO D [facility] Start: 2014 Lipid 1996 panel - S christine or Plasma Lipid Screening [facility] Start: 2014 Lipid panel Lipid Screening [facility] Start: 2014 LIPID SCREEN LIPID SCREEN [facility] Start: 2014 Screening for malign ant neoplasm of colon [facility] Start: 2014 SIGMOIDOSCOPY SIGMOIDOSCOPY [facility] Start: 2009 Mammography [facility] Start: 2009 Screening for malign ant neoplasm of breast Mammogram Screening [facility] Start: 1999 HPV TESTING HPV TESTING [facility] Start: 1999 Screening for malign ant neoplasm of cervix HPV Testing [facility] Start: 1990 PAP TESTING PAP TESTING [facility] Start: 1990 Screening for malign ant neoplasm of cervix [facility] Start: 02-08-1988 Hepatitis B Vaccine (1 of 3 - 19+ 3-dose series) Hepatitis B Vaccine (1 of 3 - 19+ 3-dose series) [facility] Start: 02-08-1988 SHINGRIX VACCINE (1 of 2) [facility] GRIX VACCINE (1 of 2) [facility] Start: 02-08-1988 Urine microalbumin profile [facility] Start: 1987 Anxiety Screening Anxiety Screening [facility] Start: 1987 Depression Screening Depression Scre ening [facility] Start: 1987 HEPATITIS C [facility]CREENING [facility] Start: 1987 Hepatitis C screening Hepatitis C [facility] Start: 1987 HIV SCREENING HIV SCREENING [facility] Start: 1987 HIV screening HIV Screening [facility] Start: 1975 PNEUMOCOCCAL (1 - PCV) PNEUMOCOCCAL (1 - PCV) [facility] Start: 1969 COVID-19 VACCINE (#1) COVID-19 VACCI NE (#1) [facility] Start: 1969 HEPATITIS B (1 of 3 - 3-dose series) HEPATITIS B (1 of 3 - 3-dose series) [facility] Start: 1969 Hepatitis B Vaccine (1 of 3 - 3-dose series) Hepatitis B Vaccine (1 of 3 - 3-dose series) [facility] End: 05-27-2023 CBC W Auto Differential panel - Blood CBC + DIFF Lab Routine Anal cancer (HCC) Once per week for 10 Occurrences starting 05/27/2022 until 05/27/2023, 1 completed [facility] Work Phone: Comment on above: Once per week for 10 Occurrences starting 05/27/2022 until 05/27/2023, 1 completed End: 05-27-2023 Comprehensive metabolic 2000 panel - Serum or Plasma COMP METABOLIC PANEL Lab Routine Anal cancer (HCC) Once per week for 10 Occurrences starting 05/27/2022 until 05/27/2023, 1 completed [facility] Work Phone: Comment on above: Once per week for 10 Occurrences starting 05/27/2022 until 05/27/2023, 1 completed End: 06-01-2023 Ct abdomen w/contrast material CT ABDOMEN W IVCON Radiology Routine Anal cancer (HCC) 1 Occurrences starting 05/02/2022 until 06/01/2023 [facility] Work Phone: Comment on above: 1 Occurrences starti ng 05/02/2022 until 06/01/2023 End: 06-01-2023 CT CHEST W IVCON CT CHEST W IVCON Radiology Routine Anal cancer (HCC) 1 Occurrences starting 05/02/2022 until 06/01/2023 [facility] Work Phone: Comment on above: 1 Occurrences starti ng 05/02/2022 until 06/01/2023 End: 10-11-2024 CT Chest WO contrast CT CHEST WO IVCON Radiology Routine Malignant neoplasm of anus (HCC) 1 Occurrences starting 09/12/2023 until 10/11/2024 [facility] Work Phone: Comment on above: 1 Occurrences starti ng 09/12/2023 until 10/11/2024 CT SIM PLANNING RADI ATION ONCOLOGY CT SIM PLANNING RADIATION ONCOLOGY Radiology Routine Anal cancer (HCC) Ordered: 05/27/2022 [facility] Work Phone: Comment on above: Ordered: 05/27/2022 End: 03-11-2024 DXA-AXIAL SKELETON DXA-AXIAL SKELETON Radiology Routine Encounter for screening for osteoporosis Symptomatic menopausal or female climacteric states Rectal cancer (HCC) 1 Occurrences starting 02/12/2023 until 03/11/2024 [facility] Work Phone: Comment on above: 1 Occurrences starti ng 02/12/2023 until 03/11/2024 End: 10-11-2024 MR Abdomen WO and W contrast IV MRI ABDOMEN WO/W IVCON Radiology Routine Malignant neoplasm of anus (HCC) 1 Occurrences starting 09/12/2023 until 10/11/2024 [facility] Work Phone: Comment on above: 1 Occurrences starti ng 09/12/2023 until 10/11/2024 End: 10-11-2024 MR Pelvis WO contrast MRI RECTUM WO/W IVCON Radiology Routine Malignant neoplasm of anus (HCC) 1 Occurrences starting 09/12/2023 until 10/11/2024 [facility] Work Phone: Comment on above: 1 Occurrences starti ng 09/12/2023 until 10/11/2024 End: 06-01-2023 Mri pelvis w/o & w/contrast material MRI RECTUM WO/W IVCON Radiology Routine Anal cancer (HCC) 1 Occurrences starting 05/02/2022 until 06/01/2023 [facility] Work Phone: Comment on above: 1 Occurrences starti ng 05/02/2022 until 06/01/[address] [facility] [address] [facility] c [facility] Payers Date Payer Category Payer Medicaid [id number] 2013 Unknown [facility] O [id number] 2013-Present [phone] [address] [place], [place] [address] [id number] 1969 Unknown [id number] 1969 Unknown [id number] 93 1969 Unknown [id number] 1969 Unknown [id number] 1969 Unknown [id number] 1969 Unknown [id number] 1969 Unknown [id number] 1969 Unknown [id number] 1969 Unknown [id number] 1969 Unknown [id number] 1969 Unknown [id number] 1969 Unknown [id number] 259 1960 Medicaid [id number] 1960 Private Health Insurance [id number] 1960 Self-pay [id number] Social History Date Type Detail Facility Start: 02-20-2022 End: 05-06-2022 Tobacco smoking status Never smoked tobacco (finding) [facility] Tobacco smoking status Never [facility] Start: 01-16-2023 End: 04-26-2024 Sex Assigned At Female [facility] Start: 05-02-2022 End: 05-06-2022 Tobacco use and exposure Smokeless tobacco non-user [facility] Start: 05-02-2022 End: 05-30-2024 Alcohol intake Current non-drinker of alcohol (finding) [facility] Start: 1970 Sex Assigned At Not on file [facility] Start: 04-22-2022 End: 05-02-2022 Exposure to SARS-CoV-2 (event) Yes [facility] Start: 04-26-2022 End: 06-17-2022 Exposure to SARS-CoV-2 (event) Not sure [facility] Start: 01-16-2023 End: 04-26-2024 History of Social function [facility] NEGATED: Highlighted rowStart: NINF History of tobacco use Passive smoker [facility] Functional Status Date Assessment Result Facility 02-20-2022 Functional Status N/A [facility] [employer] Clinical Notes 02-20-2022 to 05-28-2024 Phil Dougherty MD - 05/28/2024 3:40 PM Gerardo Radford APRN.CNP - 04/26/2024 3:27 PM Phil Lacy MD - 12/12/2023 2:00 PM Padmini Silver OCCA - 10/31/2023 4:11 PM EDTPatient Instructions Note Date & Type Note Facility 05-28-2024 History of Present illness Narrative COLORECTAL SURGERY May 28, 2024 Kirt Reyna 54 year old Chief Complaint: anal cancer surveillance History of Present Illness: Kirt Reyna is a 54 year old female presents today for anal cancer surveillance. She was last seen in office 12/12/23 for diarrhea and anal itching. Oncology - Dr. Bonds Radiation oncology - Dr. Michaud CT chest 10/01/23 1. Stable subcentimeter pulmonary nodules which are likely benign. 2. No significant thoracic adenopathy. MRI abdomen 09/29/23 No metastatic disease in the abdomen. 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 No metastatic disease in the pelvis. Doing well. No complaints. Normal bowel movements PAST MEDICAL HISTORY Diagnosis Date Hiatal hernia [...] taking differently: As needed) 90 tablet 1 Hjmakehzy-Oarlbuxplckhdo-Uhno 2.8-0.55 % gel Use 1 Applicator by [...] Never Smokeless tobacco: Never Vaping Use Vaping status: Never Used Substance Use Topics Alcohol use: No Drug use: No Physical Exam: BP 141/65 (BP Site: Left Arm, BP Position: Sitting) Pulse 92 Ht 170.2 cm (5' 7 ) Wt 82.1 kg (181 lb) SpO2 100% BMI 28.35 kg/m General Appearance: Well appearing, alert, in no acute distress, well-hydrated, well nourished. Anorectal: External exam reveals no lesions. Digital rectal exam reveals no gross blood or masses Occupational Health And Safety Manager present: Yes, Padmini Garcia Anoscopy: The patient was placed in chest-knee position. After digital exam with a lubricated finger, the scope was easily inserted. Posterior scar noted. Otherwise normal mucosa was noted. Anoscopy completed. The sensitive examination was discussed with the Patient or Patient's Authorized Educational Coordinator. As applicable, any other physician, advance practice provider, medical student, or other health professional student that will be observing or involved in the sensitive examination for educational or training purposes was discussed with the Patient or Authorized Educational Coordinator. The Patient or Authorized Educational Coordinator has agreed to proceed with the sensitive examination. (Sensitive examination includes inspection and/or palpation of the breasts, pelvis, prostate and anorectal regions) Assessment Assessment and Plan: Kirt Reyna is a 54 year old female with anal cancer status post chemoradiation with no evidence of residual disease. She has imaging scheduled for October. She will return to see me in 6 months for another inguinal node and anoscopic exam Medical Decision Making: Data Reviewed: Tests & Documents Reviewed/ordered: Review of prior notes from myself Review of Pathology Review of Imaging: CT Abdomen, CT Pelvis, MRI Pelvis Review of Labs: CBC, BMP I have independently interpreted: CT Abdomen, CT Pelvis, MRI Pelvis Risk of morbidity, mortality and/or complications of treatment plan: high Phil Dougherty MD Colorectal Surgery documented in this encounter [facility] 05-28-2024 Note HNO ID: [id number] Author: PHIL DOUGHERTY MD Service: ? Author Type: Physician Type: Progress Notes Filed: 05/30/2024 22:58 Note Text: COLORECTAL SURGERY May 28, 2024 Kirt Reyna 54 year old Chief Complaint: anal cancer surveillance History of Present Illness: Kirt Reyna is a 54 year old female presents today for anal cancer surveillance. She was last seen in office 12/12/23 for diarrhea and anal itching. Oncology - Dr. Bonds Radiation oncology - Dr. Michaud CT chest 10/01/23 1. Stable subcentimeter pulmonary nodules which are likely benign. 2. No significant thoracic adenopathy. MRI abdomen 09/29/23 No metastatic disease in the abdomen. 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 No metastatic disease in the pelvis. Doing well. No complaints. Normal bowel movements PAST MEDICAL HISTORY Diagnosis Date Hiatal hernia [...] taking differently: As needed) 90 tablet 1 Rorzqubdn-Ioczhoepzjyqny-Wckc 2.8-0.55 % gel Use 1 Applicator by [...] Never Smokeless tobacco: Never Vaping Use Vaping status: Never Used Substance Use Topics Alcohol use: No Drug use: No Physical Exam: BP 141/65 (BP Site: Left Arm, BP Position: Sitting) Pulse 92 Ht 170.2 cm (5' 7 ) Wt 82.1 kg (181 lb) SpO2 100% BMI 28.35 kg/m? General Appearance: Well appearing, alert, in no acute distress, well-hydrated, well nourished. Anorectal: External exam reveals no lesions. Digital rectal exam reveals no gross blood or masses Occupational Health And Safety Manager present: Yes, Padmini Garcia Anoscopy: The patient was placed in chest-knee position. After digital exam with a lubricated finger, the scope was easily inserted. Posterior scar noted. Otherwise normal mucosa was noted. Anoscopy completed. The sensitive examination was discussed with the Patient or Patient's Authorized Educational Coordinator. As applicable, any other physician, advance practice provider, medical student, or other health professional student that will be observing or involved in the sensitive examination for educational or training purposes was discussed with the Patient or Authorized Educational Coordinator. The Patient or Authorized Educational Coordinator has agreed to proceed with the sensitive examination. (Sensitive examination includes inspection and/or palpation of the breasts, pelvis, prostate and anorectal regions) Assessment Assessment and Plan: Kirt Reyna is a 54 year old female with anal cancer status post chemoradiation with no evidence of residual disease. She has imaging scheduled for October. She will return to see me in 6 months for another inguinal node and anoscopic exam Medical Decision Making: Data Reviewed: Tests AND Documents Reviewed/ordered: Review of prior notes from myself Review of Pathology Review of Imaging: CT Abdomen, CT Pelvis, MRI Pelvis Review of Labs: CBC, BMP I have independently interpreted: CT Abdomen, CT Pelvis, MRI Pelvis Risk of morbidity, mortality and/or complications of treatment plan: high Phil Dougherty MD Colorectal Surgery [facility] 04-26-2024 Note HNO ID: [id number] Author: GERARDO MCKINNON APRN.CLINIQUE COUNTER MANAGER Service: ? Author Type: Nurse Practitioner Type: Progress Notes Filed: 04/26/2024 21:05 Note Text: NAME: Kirt Reyna CLINIC NO.: [id number] DATE OF SERVICE: APRIL 26, 2024 (Dean) Some elements in this clinic note that are critical to medical decision making have been carefully reviewed and included from a prior clinic note dated: October 27, 2023 (Vamshi) Referring Provider: Dr. Phil Dougherty Additional Clinicians involved in Kirt Reyna's care: Dr. Sondra Liu, Dr. Vitaly Vaughn, Dr. Toribio Michaud DIAGNOSIS: Anal Cancer ASSESSMENT: 54 year old woman with POTS diagnosed (04/2022) with an anal lesion consistent [...] Michaud Labs on return - CBC, CMP Follow up as scheduled with Dr. Dougherty Repeat MRI and CT chest, abdomen and pelvis is scheduled for 10/26/2024. ____ HPI: CASE HISTORY: Reverse Chronological Order [...] diagnosed just as COVID-19 hit. Updated Visit, Kirt Reyna returns for scheduled follow-up. She has a follow-up scheduled with Dr. Dougherty this Friday. She has occasional rectal tenderness. She has intermittent constipation. She has some rectal faint bleeding which occurs after episodes of constipation. She manages her constipation with fibe (more content not included)... [facility] 04-26-2024 History of Present illness Narrative Images from the original note were not included. NAME: Kirt Reyna CLINIC NO.: [id number] DATE OF SERVICE: APRIL 26, 2024 (Dean) Some elements in this clinic note that are critical to medical decision making have been carefully reviewed and included from a prior clinic note dated: October 27, 2023 (Vamshi) Referring Provider: Dr. Phil Dougherty Additional Clinicians involved in Kirt Reyna's care: Dr. Sondra Liu, Dr. Vitaly Vaughn, Dr. 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 Chemo RT started 06/13/2022. Stopped Xeloda pills on 07/01/2022 due to developing POTS symptoms. Good response ~ 1 month following RT. Continued response after treatment conclusion with abbreviated Xeloda. PLAN: RTC in 6 months - coordinate same day with Dr. Jaswant Link on return - CBC, CMP Follow up as scheduled with Dr. Dougherty Repeat MRI and CT chest, abdomen and pelvis is scheduled for 10/26/2024. HPI: CASE HISTORY: Reverse Chronological Order 10/22/2023 [...] diagnosed just as COVID-19 hit. Updated Visit, Kirt Reyna returns for scheduled follow-up. She has a follow-up scheduled with Dr. Dougherty this Friday. She has occasional rectal tenderness. She has intermittent constipation. She has some rectal faint bleeding which occurs after episodes of constipation. She manages her constipation with fiber intake. She denies any other abnormal bleeding or bruising. She denies cough, shortness of breath and other pulmonary complaints. She denies any unusual pain. She had some right side abdominal pain which wrapped around to her back. She saw her PCP who felt the pain was muscular. She denies fevers, chills, night sweats and signs/symptoms of infection. Overall, she is doing well and offers no new complaints today. No new issues, problems or concerns. Updated Visit, October 27, 2023: Cherie returns [...] US next week - will follow with dredge pipeman for exam. Labs stable. Updated Visit, October [...] weeks Updated Visit, July 10, 2022: Kirt A Michelle returns for follow-up. She remains on radiation [...] PERFORMANCE STATUS: 0 PHYSICAL EXAMINATION: Vitals: BP 129/72 Pulse 89 Temp (Src) 97.9 (Temporal) Resp 16 Wt 181 lb 3.5 oz (82.2kg) SpO2 100% Body surface area is 1.97 meters squared. Exam limited to gross visualization [...] D3 ORAL) Take by mouth once daily. multivitamin tablet Take 1 tablet by mouth once daily. multivit-min/ferrous fumarate (MULTI VITAMIN ORAL) Take by mouth once daily. ondansetron (ZOFRAN) 8 mg tablet TAKE 1 TABLET BY MOUTH EVERY 8 HOURS NEEDED FOR NAUSEA AND VOMITING (Patient taking differently: As needed) Acvcfzymt-Ekovrubzybokhi-Hfqx 2.8-0.55 % gel Use 1 Applicator by RECTAL route twice daily as needed. acetaminophen/diphenhydramine (TYLENOL PM EXTRA STRENGTH ORAL) Take 500 mg by mouth as needed. fludrocortisone (FLORINEF) 0.1 mg tablet TAKE 0.5 TABLET BY MOUTH TWICE A DAY LABORATORY VALUES: WBC (k/uL) Date Value 04/26/2024 4.77 RBC (m/uL) Date Value 04/26/2024 4.48 Hemoglobin (g/dL) Date Value 04/26/2024 13.5 Hematocrit (%) Date Value 04/26/2024 39.5 MCV (fL) Date Value 04/26/2024 88.2 MCH (pg) Date Value 04/26/2024 30.1 MCHC (g/dL) Date Value 04/26/2024 34.2 RDW-CV (%) Date Value 04/26/2024 12.9 Platelet Count (k/uL) Date Value 04/26/2024 236 MPV (fL) Date Value 04/26/2024 9.9 Glucose (mg/dL) Date Value 04/26/2024 101 (H) BUN (mg/dL) Date Value 04/26/2024 19 Creatinine (mg/dL) Date Value 04/26/2024 0.69 Sodium (mmol/L) Date Value 04/26/2024 139 Potassium (mmol/L) Date Value 04/26/2024 4.1 Chloride (mmol/L) Date Value 04/26/2024 101 CO2 (mmol/L) Date Value 04/26/2024 26 Protein, Total (g/dL) Date Value 04/26/2024 7.6 Albumin (g/dL) Date Value 04/26/2024 4.5 Calcium, Total (mg/dL) Date Value 04/26/2024 9.4 Alkaline Phosphatase (U/L) Date Value 04/26/2024 107 Bilirubin, Total (mg/dL) Date Value 04/26/2024 0.3 AST (U/L) Date Value 04/26/2024 22 ALT (U/L) Date Value 04/26/2024 19 DIAGNOSIS: (C21.0) Anal cancer (HCC) (primary encounter [...] Never Smokeless tobacco: Never Vaping Use Vaping status: Never Used Substance Use Topics Alcohol use: No Drug use: No FAMILY HISTORY Problem Relation Age of Onset other (cysts [Other]) Mother other (parkinson [Other]) Father Diabetes Father I spent a total of 20 minutes on the date of the service which included preparing to see the patient, [id number] patient care, completing clinical documentation, obtaining and/or reviewing separately obtained history, performing a medically appropriate examination, counseling and educating the patient/family/caregiver, ordering medications, tests, or procedures, independently interpreting results (not separately reported), and communicating results to the patient/family/caregiver. Gerardo Mckinnon APRN.FLORINA Hematology and Oncology Services Provided at: [facility], [place], [place] Scribe Attestation: This note was scribed by Adri Gilbret on October 27, 2023 under the direction and supervision of Dr. Paco Bonds. I attest that all of the information documented is correct to the best of my knowledge. Provider Attestation: I, Paco Bonds MD, attest that all information documented by the above scribe is correct, and was supervised by me and under my direction. CC: Dr. Phil Liu documented in this encounter [facility] 12-12-2023 History of Present illness Narrative COLORECTAL [...] taking differently: As needed) 90 tablet 1 Znfsnqowe-Qpbljfivutdhpb-Hvxs 2.8-0.55 % gel Use 1 Applicator by [...] exam reveals no gross blood or masses Occupational Health And Safety Manager present: Yes, Padmini Garcia Anoscopy: The patient [...] MD Colorectal Surgery documented in this encounter [facility] 12-12-2023 Note HNO ID: [id number] Author: PHIL DOUGHERTY MD Service: ? Author [...] taking differently: As needed) 90 tablet 1 Uqhtfwpwx-Nzdfkpdobdvmde-Efrz 2.8-0.55 % gel Use 1 Applicator by [...] exam reveals no gross blood or masses Occupational Health And Safety Manager present: Yes, Padmini Garcia Anoscopy: The patient [...] plan: high Phil Dougherty MD Colorectal Surgery [facility] 10-31-2023 Nurse Note What is the reason for your visit today? F/u, anal cancer surveillance Who is your referring physician? Are you having poor oral intake? NO Have you had unintentional weight loss of 15 lbs/7 Kg in the last 3-6 months? NO Bowels: regular Wound: Temperature: No Drains: No documented in this encounter [facility] 10-31-2023 History of Present illness Narrative [...] FOR NAUSEA AND VOMITING 90 tablet 1 Vndhcafet-Mkjqtrzirrnjbv-Zymv 2.8-0.55 % gel Use 1 Applicator by [...] exam reveals no gross blood or masses Occupational Health And Safety Manager present: Yes, Padmini Garcia Anoscopy: The patient [...] MD Colorectal Surgery documented in this encounter [facility] 10-31-2023 Note HNO ID: [id number] Author: PHIL DOUGHERTY MD Service: ? Author [...] FOR NAUSEA AND VOMITING 90 tablet 1 Gtckedzkl-Elglkmulqwwdvf-Ltvg 2.8-0.55 % gel Use 1 Applicator by [...] exam reveals no gross blood or masses Occupational Health And Safety Manager present: Yes, Padmini Garcia Anoscopy: The patient [...] plan: high Phil Dougherty MD Colorectal Surgery [facility] 10-27-2023 Note HNO ID: [id number] Author: TORIBIO MICHAUD MD Service: ? Author Type: Physician Type: Progress Notes Filed: 11/11/2023 05:24 Note Text: Radiation Oncology - Follow Up Note PATIENT NAME: Kirt Reyna PATIENT DIAGNOSIS/PATIENT IDENTIFICATION: Ms. 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 [...] VITAMIN ORAL) ondansetron (ZOFRAN) 8 mg tablet Pdknuequa-Kvhmgpiwwvyuxv-Tjhb 2.8-0.55 % gel multivitamin tablet acetaminophen/diphenhydramine (TYLENOL [...] Ms. Reyna is a 53-year-old woman with [id number] squamous cell carcinoma of the anal canal. [...] which included preparing to see the patient, xjxt-fe-dzzh patient care, and counseling and educating the patient/family/caregiver. This document has been created with the use of voice recognition technology. It may contain inaccuracies, misspellings, inaccurate syntax or inappropriate word context that are a result of the inadequacies/shortcomings of said technology/software. [facility] 10-27-2023 History of Present illness Narrative Radiation Oncology - Follow Up Note PATIENT NAME: Kirt Reyna PATIENT DIAGNOSIS/PATIENT IDENTIFICATION: Ms. Reyna is a 53-year-old woman with [id number] squamous cell carcinoma of the anal canal. [...] VITAMIN ORAL) ondansetron (ZOFRAN) 8 mg tablet Qqigymvey-Azgemshezhsiow-Twra 2.8-0.55 % gel multivitamin tablet acetaminophen/diphenhydramine (TYLENOL [...] Ms. Reyna is a 53-year-old woman with [id number] squamous cell carcinoma of the anal canal. She completed a course of definitive concurrent chemoradiation therapy on 07/25/2022 (5600 cGy delivered in 28 fractions with partial course of Xeloda) Signed by: Toribio Michaud MD I spent a total of 20 minutes on the date of the service which included preparing to see the patient, jtge-bh-amxg patient care, and counseling and educating the patient/family/caregiver. This document has been created with the use of voice recognition technology. It may contain inaccuracies, misspellings, inaccurate syntax or inappropriate word context that are a result of the inadequacies/shortcomings of said technology/software. documented in this encounter [facility] 10-27-2023 Instructions Adri Gilbert - 10/27/2023 2:40 PM EDT RTC in 6 months - coordinate same day with Dr. Jaswant Link on return - CBC, CMP documented in this encounter [facility] 10-27-2023 Nurse Note Patient does have chronic back pain, she is starting physical therapy. Radha Lunsford MA documented in this encounter [facility] 10-27-2023 History of Present illness Narrative Images from the original note were not included. NAME: Kirt Reyna CLINIC NO.: [id number] DATE OF SERVICE: October 27, 2023 ([facility]) Some elements in this clinic note [...] US next week - will follow with dredge pipeman for exam. Labs stable. Updated Visit, October [...] daily. (Patient not taking: Reported on 10/27/2023) Hjfqkhend-Jdhtxhxssrdxtz-Uvuv 2.8-0.55 % gel Use 1 Applicator by [...] which included preparing to see the patient, rpix-gc-kgtd patient care, completing clinical documentation, obtaining and/or reviewing separately obtained history, performing a medically appropriate examination, counseling and educating the patient/family/caregiver, ordering medications, tests, or procedures, independently interpreting results (not separately reported), communicating results to the patient/family/caregiver, and care coordination (not separately reported). Paco Bonds MD, CPE Hematology and Oncology Services Provided at: [place], [place] Scribe Attestation: This note was scribed [...] Dr. Phil Liu documented in this encounter [facility] 10-27-2023 Note HNO ID: [id number] Author: PACO BONDS MD Service: ? Author Type: Physician Type: Progress Notes Filed: 10/28/2023 14:27 Note Text: NAME: Kirt Reyna [facility] NO.: [id number] DATE OF SERVICE: October 27, 2023 ([facility]) [...] 2023: Doing well. (more content not included)... [facility] 10-01-2023 History of Present illness Narrative Radiology Service [...] PATIENT PRESENTS WITH AN IMPLANTABLE OR ATTACHED FLUORESCENT LAMP REPLACER: No RADIOLOGY DEPARTMENT: CT; Exam(s) Completed: Chest PERIPHERAL IV DATA: Not applicable SIGNED BY: RT Kimberly(Ange) October 01, 2023 10:42 AM documented in this encounter [facility] 10-01-2023 Note HNO ID: [id number] Author: NURA ESCOBAR RT(R) Service: ? Author [...] PATIENT PRESENTS WITH AN IMPLANTABLE OR ATTACHED FLUORESCENT LAMP REPLACER: No RADIOLOGY DEPARTMENT: CT; Exam(s) Completed: Chest PERIPHERAL IV DATA: Not applicable SIGNED BY: RT Kimberly(R) October 01, 2023 10:42 AM [facility] 09-29-2023 Note HNO ID: [id number] Author: JOSE R BERNARD RRT Service: Radiology Author Type: Hide Inspector And Sorter Type: Progress Notes Filed: 09/29/2023 13:33 Note [...] PATIENT PRESENTS WITH AN IMPLANTABLE OR ATTACHED FLUORESCENT LAMP REPLACER: No ALLERGIES: Reviewed and unchanged CONTRAST ALLERGY: NO. EXAM: MRI - CONTRAST TYPE: GROUP II PERIPHERAL IV DATA: Ambulatory: A peripheral IV was started in the Right antecubital site with a Angio cath: 24 gauge. RADIOLOGY DEPARTMENT: MR; Exam(s) Completed: Body: Liver (routine) and Rectal SIGNATURE: Jose R Bernard RRT PATIENT NAME: Kirt Reyna DATE: September 29, 2023 TIME: 1:33 PM [facility] 09-29-2023 History of Present illness Narrative Radiology [...] PATIENT PRESENTS WITH AN IMPLANTABLE OR ATTACHED FLUORESCENT LAMP REPLACER: No ALLERGIES: Reviewed and unchanged CONTRAST ALLERGY: [...] TIME: 1:33 PM documented in this encounter [facility] 09-18-2023 Miscellaneous Notes Discussed with patient [...] you so much. documented in this encounter [facility] 07-11-2023 Note HNO ID: [id number] Author: Phil Dougherty MD Service: ? Author [...] FOR NAUSEA AND VOMITING 90 tablet 1 Nygmcakrh-Gsdvuxkgoqsuum-Qqsr 2.8-0.55 % gel Use 1 Applicator by [...] exam reveals no gross blood or masses Occupational Health And Safety Manager present: Yes, Padmini Garcia Anoscopy: The patient [...] plan: high Phil Dougherty MD Colorectal Surgery [facility] 05-27-2023 Miscellaneous Notes LVM for patient regarding the need to reschedule Colorectal appt with Dr. Dougherty on 05/29/2023. Provider not longer comes to [facility]. Mychart message sent. documented in this encounter [facility] 04-28-2023 Instructions Paco Bonds MD - 04/28/2023 2:22 PM EDT RTC in 6 months MRI Pelvis / Rectum and CT chest scans due in July per Dr. Michaud. Labs on return - cbc, cmp documented in this encounter [facility] 04-28-2023 History of Present illness Narrative Images from the original note were not included. NAME: Kirt Reyna [facility] NO.: [id number] DATE OF SERVICE: April 28, 2023 ([facility]) [...] US next week - will follow with dredge pipeman for exam. Labs stable. Updated Visit, October [...] 8 HOURS NEEDED FOR NAUSEA AND VOMITING Nehdfdlhs-Yyhjmkrqueserj-Nvcr 2.8-0.55 % gel Use 1 Applicator by [...] which included preparing to see the patient, over-bj-bomo patient care, completing clinical documentation, performing a medically appropriate examination, counseling and educating the patient/family/caregiver, ordering medications, tests, or procedures, and independently interpreting results (not separately reported). Paco Bonds MD, CPE Hematology and Oncology Services Provided at: [place], [place] CC: Dr. Phil Liu documented in this encounter [facility] 04-28-2023 Nurse Note Patient had a Mammogram but do to dense tissue she has to have an US and more in depth mammogram done. Radha Lunsford MA documented in this encounter [facility] 02-27-[address] Michaud [...] Eliza Ceballos RN documented in this encounter [facility] 02-12-2023 Miscellaneous Notes Patient is scheduled at [place] Fridayfeb 17 she is aware of appts Called [facility] to schedule appt left message Pt was notified. PSS- please contact pt and arrange Dexa at [facility] per pt request. Eliza Ceballos RN Will [...] Eliza Ceballos RN documented in this encounter [facility] 02-10-2023 Instructions Eliza Ceballos RN - [...] usual activities immediately. documented in this encounter [facility] 01-16-2023 History of Present illness Narrative [...] taking: Reported on 10/28/2022) 90 tablet 1 Seehmnovx-Akhyiydnbyvrgg-Ktlf 2.8-0.55 % gel Use 1 Applicator by [...] exam reveals no gross blood or masses Occupational Health And Safety Manager present: Yes, Jenn Anoscopy: The patient was [...] MD Colorectal Surgery documented in this encounter [facility] 10-28-2022 History of Present illness Narrative Radiation Oncology - Follow Up Note PATIENT NAME: Kirt Reyna PATIENT DIAGNOSIS/PATIENT IDENTIFICATION: Ms. Reyna is a 52-year-old woman with [id number] squamous cell carcinoma of the anal canal. [...] now recovered. She is planning for a TWISTER TENDER exam in the next few weeks. She [...] mg tablet ondansetron (ZOFRAN) 8 mg tablet Rguinmgts-Xaushgjtqbqcrg-Mvdr 2.8-0.55 % gel acetaminophen/diphenhydramine (TYLENOL PM EXTRA [...] Ms. Reyna is a 52-year-old woman with [id number] squamous cell carcinoma of the anal canal. [...] which included preparing to see the patient, aceo-np-cxps patient care, and counseling and educating the patient/family/caregiver. This document has been created with the use of voice recognition technology. It may contain inaccuracies, misspellings, inaccurate syntax or inappropriate word context that are a result of the inadequacies/shortcomings of said technology/software. documented in this encounter [facility] 10-28-2022 Nurse Note Clinical questionnaires incomplete due to QNR intake not loading. Radha Lunsford MA documented in this encounter [facility] 10-28-2022 Instructions Paco Bonds MD - 10/28/2022 2:08 PM EDT RTC in 6 months Defer scans (MRI) to Dr. Michaud / Dennis. Labs on return - cbc, cmp documented in this encounter [facility] 10-28-2022 History of Present illness Narrative Images from the original note were not included. NAME: Kirt Reyna CLINIC NO.: [id number] DATE OF SERVICE: October 28, 2022 ([facility]) Some elements in this clinic note that are critical to medical decision making have been carefully reviewed and included from a prior clinic note dated: September 04, 2022 ([facility]) Referring Provider: Dr. Phil Dougherty Additional Clinicians involved in Kirt Reyna's care: Dr. Sonrda Liu, Dr. Vitaly Vaughn, Dr. Toribio Michaud [...] VOMITING (Patient not taking: Reported on 10/28/2022) Hquqceizd-Gvtdeecniecfax-Iozx 2.8-0.55 % gel Use 1 Applicator by [...] which included preparing to see the patient, tqih-wy-nemm patient care, completing clinical documentation, performing a medically appropriate examination, counseling and educating the patient/family/caregiver, ordering medications, tests, or procedures, and independently interpreting results (not separately reported). Paco Bonds MD, CPE Hematology and Oncology Services Provided at: [place], [place] CC: Dr. Phil Liu documented in this encounter [facility] 10-11-2022 Note HNO ID: [id number] Author: Eleonora Puri Service: Radiology Author Type: [...] Eleonora Puri October 11, 2022 4:15 PM [facility] 10-11-2022 History of Present illness Narrative Radiology [...] Intact, Site disposition Discontinued SIGNED BY: Eleonora Prui October 11, 2022 4:15 PM documented in this encounter [facility] 10-11-2022 Nurse Note Radiology Service Progress [...] TIME: 2:45 PM documented in this encounter [facility] 09-04-2022 History of Present illness Narrative Radiation Oncology - Follow Up Note PATIENT NAME: Kirt Reyna PATIENT Signed by: Toribio Michaud MD This document has been created with the use of voice recognition technology. It may contain inaccuracies, misspellings, inaccurate syntax or inappropriate word context that are a result of the inadequacies/shortcomings of said technology/software. documented in this encounter [facility] 09-04-2022 Instructions Paco Bonds MD - 09/04/2022 10:52 AM EST RTC in 3 months Defer scans (MRI) to Dr. Michaud. Labs on return - cbc, cmp documented in this encounter [facility] 09-04-2022 History of Present illness Narrative Images from the original note were not included. NAME: Kirt Reyna [facility] NO.: [id number] DATE OF SERVICE: September 04, 2022 ([facility]) Some elements in this clinic note [...] DAY diphenhydrAMINE (BENADRYL) 12.5 mg/5 mL liquid Nhlnwvfyh-Eyppqzsaxlnkzz-Tzct 2.8-0.55 % gel Use 1 Applicator by [...] which included preparing to see the patient, rgjo-nq-xiae patient care, completing clinical documentation, performing a medically appropriate examination, counseling and educating the patient/family/caregiver, ordering medications, tests, or procedures, and independently interpreting results (not separately reported). Paco Bonds MD, CPE Hematology and Oncology Services Provided at: [place], [place] CC: Dr. Phil Liu documented in this encounter [facility] 08-28-2022 History of Present illness Narrative Radiology Service Progress Note DATE OF SERVICE: August 28, 2022 TIME: 10:05 AM PATIENT WEIGHT: 172 LBS PATIENT IDENTITY VERIFICATION COMPLETED USING TWO [...] Reviewed and unchanged CONTRAST ALLERGY: No EXAM: CT -CONTRAST INDUCED NEPHROPATHY RISK FACTORS: Not applicable CREATININE: Creatinine Date Value Ref Range Status 08/01/2022 0.62 0.58 - 0.96 mg/dL Final 07/17/2022 0.67 0.58 - 0.96 mg/dL Final 07/10/2022 0.66 0.58 - 0.96 mg/dL Final Estimated Glomerular Filtration Rate Date Value Ref Range Status 08/01/2022 107 >=60 mL/min/1.73m Final Comment: Estimated Glomerular Filtration Rate (eGFR) is calculated using the 2020 CKD-EPI creatinine equation. This equation utilizes serum creatinine, sex, and age as parameters. The creatinine assay has traceable calibration to isotope dilution-mass spectrometry. Refer to KDIGO guidelines for clinical interpretation. In patients with unstable renal function, e.g. those with acute kidney injury, the eGFR may not accurately reflect actual GFR. P.O.C.T. RESULTS: N/A August 28, 2022 TREATMENT: N/A IV SITE: Ambulatory: A peripheral IV was started in the Right antecubital site with a Angio cath: 20 gauge. IV SITE APPEARANCE: Clean,Dry and Intact SIGNATURE: Vy Olmstead RN PATIENT NAME: Kirt Reyna DATE: August 28, 2022 TIME: 10:05 AM Radiology Service Progress Note PATIENT NAME: Kirt Reyna DATE OF SERVICE: August 28, 2022 TIME: 10:06 AM PATIENT IDENTITY VERIFICATION COMPLETED USING TWO (2) IDENTIFIERS: Name and Date of confirmed by patient verbally. FALL SCREENING: Has the patient had 2 falls in the last year or 1 fall with injury or currently using an Ambulatory Assistive Device (Walker, Cane, Wheelchair, Crutches, etc.)? No PATIENT GENDER DATA: Female. status: : No status: NO. PATIENT RELEVANT IMPLANT DATA REVIEWED: Not Applicable RADIOLOGY DEPARTMENT: CT; Exam(s) Completed: Chest Abdomen Pelvis With IV and Oral contrast PERIPHERAL IV DATA: Site assessment: Clean,Dry and Intact, Site disposition Discontinued SIGNED BY: RT Lily(R) August 28, 2022 10:06 AM documented in this encounter [facility] 08-16-2022 Miscellaneous Notes Voicemail message received from pt requesting a letter clearing her to return to work. Pt's chart reviewed. It appears a letter was written per Dr Michaud on 07/24/22. Call placed to pt. Pt states that her employer found the letter since her original message. No additional letter needed at this time. Leandra Whitehead RN documented in this encounter [facility] 08-01-2022 History of Present illness Narrative Radiation Oncology - Follow Up Note PATIENT NAME: Kirt Reyna PATIENT Signed by: Toribio Michaud MD This document has been created with the use of voice recognition technology. It may contain inaccuracies, misspellings, inaccurate syntax or inappropriate word context that are a result of the inadequacies/shortcomings of said technology/software. documented in this encounter [facility] 08-01-2022 Nurse Note Kirt Reyna presents in office today for: Lab Draw during Office Visit . Ordering Provider: Toribio Michaud M.D. Test (s) ordered: CBC CMP Method for obtaining blood: Phlebotomy was performed, accessing right antecubital vein. Needle removed intact. Dressing secured. Patient denies discomfort, dizziness, light-headedness or weakness and left the department without assist. Eliza Ceballos RN documented in this encounter [facility] 07-26-2022 Miscellaneous Notes ART THERAPY NOTE [...] at her request in the future. SIGNATURE: Rossi Bradley Art Therapist PATIENT NAME: Kirt Reyna DATE: July 26, 2022 TIME: 2:46 PM PAGER/CONTACT #: documented in this encounter [facility] 07-25-2022 History of Present illness Narrative [facility] Radiation Oncology Department RADIATION ONCOLOGY - COMPLETION NOTE PATIENT: KIRT REYNA: 1970 DATES OF TREATMENT: 06-13-2022 to 07-25-2022 DIAGNOSIS: Ms. Reyna is a 52-year-old woman with [id number] squamous cell carcinoma of the anal canal. [...] Dougherty MD ([facility]) Sondra Liu MD [address] [facility] [address] [address] documented in this encounter [facility] 07-23-2022 History of Present illness Narrative Radiation Oncology - On Treatment Review (OTR) Note PATIENT NAME: Kirt Reyna PATIENT Toribio Michaud MD documented in this encounter [facility] 07-23-2022 Nurse Note Status: Patient states there is no possibility she is at this time. documented in this encounter [facility] 07-22-[address] Arellano office spoke with Richard. She states they have received this referral and they called patient on 07/19 and left message for patient to call their office back to schedule. Clarissa Maguire Records faxed to Dr. Arellano. Margarita: Information ready for you. Clarissa Weiss Pss Cardiology Referral. Dx: POTS (postural orthostatic tachycardia syndrome) [G90.A (ICD-10-CM)] Comments: Please refer to Dr. Raghu Arellano in [place] Margarita/Alvin: Can you please refer patient and follow up? Thanks! Jenna Solorio documented in this encounter [facility] 07-18-2022 History of Present illness Narrative Radiation Oncology - On Treatment Review (OTR) Note PATIENT NAME: Kirt Reyna PATIENT DIAGNOSIS: Ms. Reyna this 52-year-old woman with [id number] squamous cell carcinoma of the anal canal. [...] Toribio Michaud MD documented in this encounter [facility] 07-18-2022 Nurse Note Status: Patient states there is no possibility she is at this time. documented in this encounter [facility] 07-17-2022 Instructions Paco Bonds MD - 07/17/2022 10:57 AM EST Restaging CT's in 6 weeks Labs same day. RTC after scans to review. documented in this encounter [facility] 07-17-2022 History of Present illness Narrative Images from the original note were not included. NAME: Kirt Reyna CLINIC NO.: [id number] DATE OF SERVICE: July 17, 2022 ([facility]) Some elements in this clinic note that are critical to medical decision making have been carefully reviewed and included from a prior clinic note dated: July 10, 2022 ([facility]) Referring Provider: Dr. Phil Dougherty Additional Clinicians [...] MEDICATIONS: diphenhydrAMINE (BENADRYL) 12.5 mg/5 mL liquid Cvzflrlij-Qootzbsjdhkdjc-Orpf 2.8-0.55 % gel Use 1 Applicator by [...] which included preparing to see the patient, nqdm-zy-nlrd patient care, completing clinical documentation, performing a medically appropriate examination, counseling and educating the patient/family/caregiver, ordering medications, tests, or procedures, and independently interpreting results (not separately reported). Paco Bonds MD, CPE Hematology and Oncology Services Provided at: [place], [place] CC: Dr. Phil Liu documented in this encounter [facility] 07-12-2022 Miscellaneous Notes ART THERAPY NOTE [...] patient at her request. SIGNATURE: Bear Chun Therapist PATIENT NAME: Kirt Reyna DATE: July 12, 2022 TIME: 11:59 AM PAGER/CONTACT #: documented in this encounter [facility] 07-11-2022 History of Present illness Narrative Radiation Oncology - On Treatment Review (OTR) Note PATIENT NAME: Kirt Reyna PATIENT DIAGNOSIS: Ms. 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 [...] straining or blood but pain worsens to 7-02/2010 with bowel movements. She does have nausea [...] Toribio Michaud MD documented in this encounter [facility] 07-10-2022 History of Present illness Narrative [...] 1.0-1.3 g/kg Dosing weight Estimated fluid needs: ~4441-6031 milliliters based on 1 mL per kcal (unless otherwise noted) Nutrition Focused Physical Exam: Unable to perform exam due to potential for patient discomfort (physical/emotional), will re-attempt during reassessment. Potential Signs of Inflammation: chronic condition Allergies: Penicillin G and Sulfa (Sulfonamide Antibiotics) Medications: Current Outpatient Medications Medication Sig Dispense Refill diphenhydrAMINE (BENADRYL) 12.5 mg/5 mL liquid Hkmclunpp-Bwgnnnbjbvowwk-Ybul 2.8-0.55 % gel Use 1 Applicator by [...] MS, RDN, LD documented in this encounter [facility] 07-10-2022 History of Present illness Narrative Images from the original note were not included. NAME: Nicol Reynathia [facility] NO.: [id number] DATE OF SERVICE: July 10, 2022 ([facility]) (Elements copied from Daphne Dimas PA-C note [...] MEDICATIONS: diphenhydrAMINE (BENADRYL) 12.5 mg/5 mL liquid Nmmszokkr-Znnboyvbkpocvw-Zpcf 2.8-0.55 % gel Use 1 Applicator by [...] APRN.CNP Hematology and Oncology Services Provided at: [place], [place] CC: Dr. Phil Liu I spent a total of 30 minutes on the date of the service which included preparing to see the patient, [id number] patient care, completing clinical documentation, obtaining and/or reviewing separately obtained history, performing a medically appropriate examination, counseling and educating the patient/family/caregiver, ordering medications, tests, or procedures, independently interpreting results (not separately reported), and communicating results to the patient/family/caregiver. documented in this encounter [facility] 07-03-2022 History of Present illness Narrative Radiation Oncology - On Treatment Review (OTR) Note PATIENT NAME: Kirt Reyna PATIENT DIAGNOSIS: Ms. Reyna this 52-year-old woman with [id number] squamous cell carcinoma of the anal canal. [...] Toribio Quintana MD documented in this encounter [facility] 07-02-2022 Miscellaneous Notes Pt was notified and would also like to know what out of pocket cost would be for what he recommended. Pharmacy was contacted via teams to ask. Eliza Ceballos RN Heidi/Jose R can you inform Kirt [...] No- Pharmacy completed on your behalf. Drug: Ylirgqzkp-Jvrpharqpcsmdk-Oyby Gel Cover My Meds Humphrey: [id number] Determination: Denied PA Denied because: not covered at all Prior Authorization/Case #: [id number] Prior Authorization Expiration: Time to PA Submission in CMM: 15 min Time to PA Determination in CMM: 2 days Additional Information: phone fax For questions relating to this submission, please contact [facility] at [phone] documented in this encounter [facility] 06-28-2022 Miscellaneous Notes Lidocaine is on a manufacture backorder nationwide. This pended script's product is available if you are agreeable to it. documented in this encounter [facility] 06-26-2022 History of Present illness Narrative Radiation Oncology - On Treatment Review (OTR) Note PATIENT NAME: Kirt Reyna PATIENT DIAGNOSIS: Ms. Reyna this 52-year-old woman with [id number] squamous cell carcinoma of the anal canal. [...] Toribio Michaud MD documented in this encounter [facility] 06-26-2022 Nurse Note Status: No possibility of . Eliza Ceballos RN documented in this encounter [facility] 06-24-2022 History of Present illness Narrative Images from the original note were not included. NAME: Lis Reynaa [facility] NO.: [id number] DATE OF SERVICE: June 24, 2022 (Dean) Some elements in this clinic note that [...] APRN.CNP Hematology and Oncology Services Provided at: [place], [place] CC: Dr. Phil Liu I spent a total of 30 minutes on the date of the service which included preparing to see the patient, [id number] patient care, completing clinical documentation, obtaining and/or reviewing separately obtained history, performing a medically appropriate examination, counseling and educating the patient/family/caregiver, ordering medications, tests, or procedures, independently interpreting results (not separately reported), and communicating results to the patient/family/caregiver. documented in this encounter [facility] 06-19-2022 History of Present illness Narrative Radiation Oncology - On Treatment Review (OTR) Note PATIENT NAME: Kirt Reyna PATIENT Toribio Michaud MD documented in this encounter [facility] 06-19-2022 Nurse Note Status: Patient states there is no possibility she is at this time. documented in this encounter [facility] 06-19-2022 Miscellaneous Notes ORAL ANTI-CANCER AGENTS [...] the day. States she discussed this w/ Dr already. Pt also reports that she is [...] Leandra Whitehead RN documented in this encounter [facility] 06-18-2022 Miscellaneous Notes Updated order base don new directions documented in this encounter [facility] 06-17-2022 Miscellaneous Notes Discussed this with [...] wanted Dr Calles to be aware. Magdalena Amaya, RN documented in this encounter [facility] 06-17-2022 Instructions Paco Bonds MD - [...] for each week. documented in this encounter [facility] 06-17-2022 Nurse Note Patient is taking Xeloda 4 pills daily, she was taking 6 but that was not working for her so she changed it. Radha Lunsford MA documented in this encounter [facility] 06-17-2022 History of Present illness Narrative Images from the original note were not included. NAME: Kirt Reyna CLINIC NO.: [id number] DATE OF SERVICE: June 17, 2022 (Vamshi) [...] - decrease dose to 1000 mg BID -F Will be taking Xeloda daily on days [...] future. Initial Visit, May 06, 2022: Kirt Wang Michelle presents today Hematology and Oncology evaluation. She [...] which included preparing to see the patient, [id number] patient care, completing clinical documentation, performing a medically appropriate examination, counseling and educating the patient/family/caregiver, ordering medications, tests, or procedures, and independently interpreting results (not separately reported). Paco Bonds MD, CPE Hematology and Oncology Services Provided at: [place], [place] CC: Phil Liu documented in this encounter [facility] 06-13-2022 Miscellaneous Notes Call placed to [...] to pt and she will go to [facility] for urine test. Order was faxed. [...] Eliza Ceballos RN documented in this encounter [facility] 06-03-2022 History of Present illness Narrative [...] Leandra Whitehead RN documented in this encounter [facility] 06-03-2022 History of Present illness Narrative [...] 1.0-1.3 g/kg Dosing weight Estimated fluid needs: ~4333-7587 milliliters based on 1 mL per kcal [...] 30 minutes Signed by: Carmina Forbes MS, SOURAV, SANJANA documented in this encounter [facility] 05-30-2022 History of Present illness Narrative [...] verbalized understanding. Signed by: Carmina Forbes MS, RDN, LD documented in this encounter [facility] 05-27-2022 Nurse Note Status: Patient states there is no possibility she is at this time. documented in this encounter [facility] 05-27-2022 Instructions Paco Bonds MD - 05/27/2022 11:51 AM EST Start Xeloda on June 13, 2022 with start of radiation Will be taking Xeloda daily on days of radiation only. Plan hydration on M,T,F of each week (start Jun 14) RTC with me on Friday06/17/2022 Labs every Friday Needs educations Labs today please - for baseline documented in this encounter [facility] 05-27-2022 History of Present illness Narrative [...] showed no definite evidence of distant disease. ([id number]) We again briefly reviewed the rationale, logistics, [...] which included preparing to see the patient, [id number] patient care, and counseling and educating the patient/family/caregiver. This document has been created with the use of voice recognition technology. It may contain inaccuracies, misspellings, inaccurate syntax or inappropriate word context that are a result of the inadequacies/shortcomings of said technology/software. documented in this encounter [facility] 05-27-2022 History of Present illness Narrative Images from the original note were not included. NAME: Kirt Reyna [facility] NO.: [id number] DATE OF SERVICE: May 27, 2022 (Vamshi) Some elements in this clinic [...] which included preparing to see the patient, [id number] patient care, completing clinical documentation, obtaining and/or reviewing separately obtained history, performing a medically appropriate examination, counseling and educating the patient/family/caregiver, ordering medications, tests, or procedures, communicating with other HCPs (not separately reported), and independently interpreting results (not separately reported). Paco Bonds MD, CPE Hematology and Oncology Services Provided at: [place], [place] CC: Phil Liu documented in this encounter [facility] 05-23-2022 Miscellaneous Notes The following approved [...] hours as needed. Authorizing Provider: GERARDO MCKINNON APRN.CNP Pt to start Xeloda w/ XRT. Scripts for antiemetics pended. Leandra Whitehead RN documented in this encounter [facility] 05-21-2022 History of Present illness Narrative Radiology Service Progress Note DATE OF SERVICE: May 21, 2022 TIME: 8:37 AM PATIENT WEIGHT: 171 LBS PATIENT IDENTITY VERIFICATION COMPLETED USING TWO [...] Reviewed and unchanged CONTRAST ALLERGY: No EXAM: CT -CONTRAST INDUCED NEPHROPATHY RISK FACTORS: Not applicable CREATININE: Creatinine Date Value Ref Range Status 05/02/2022 0.75 0.58 - 0.96 mg/dL Final Estimated Glomerular Filtration Rate Date Value Ref Range Status 05/02/2022 95 >=60 mL/min/1.73m Final Comment: Estimated Glomerular Filtration Rate (eGFR) is calculated using the 2020 CKD-EPI creatinine equation. This equation utilizes serum creatinine, sex, and age as parameters. The creatinine assay has traceable calibration to isotope dilution-mass spectrometry. Refer to KDIGO guidelines for clinical interpretation. In patients with unstable renal function, e.g. those with acute kidney injury, the eGFR may not accurately reflect actual GFR. P.O.C.T. RESULTS: N/A May 21, 2022 TREATMENT: No Hydration needed. IV SITE: Ambulatory: A peripheral IV was started in the Right antecubital site with a Angio cath: 20 gauge. IV SITE APPEARANCE: Clean,Dry and Intact SIGNATURE: Laurie Escobedo RN PATIENT NAME: Kirt Reyna DATE: May 21, 2022 TIME: 8:37 AM Radiology Service Progress Note PATIENT NAME: Kirt Reyna DATE OF SERVICE: May 21, 2022 TIME: 9:53 AM PATIENT IDENTITY VERIFICATION COMPLETED USING TWO (2) IDENTIFIERS: Name and Date of confirmed by patient verbally. FALL SCREENING: Has the patient had 2 falls in the last year or 1 fall with injury or currently using an Ambulatory Assistive Device (Walker, Cane, Wheelchair, Crutches, etc.)? No PATIENT GENDER DATA: Female. status: : No status: NO. PATIENT RELEVANT IMPLANT DATA REVIEWED: Not Applicable RADIOLOGY DEPARTMENT: CT; Exam(s) Completed: Abdomen and Chest PERIPHERAL IV DATA: Site assessment: Clean,Dry and Intact, Site disposition Discontinued SIGNED BY: Leandra Colbert RT(R) May 21, 2022 9:53 AM documented in this encounter [facility] 05-17-2022 Miscellaneous Notes Whatever's easy - just so she doesn't take it weekly until labs are cleared. How about 1 week for the 1st week, then 4 and then the remaining days (may not be a full 6 weeks of RT - - usually just 28 days.) The capecitabine order is covered at [facility] with no co pay, did you only want her to get the capecitabine week to week? She could get a months worth then another 2 weeks after that? Please advise Lynn Cruz documented in this encounter [facility] 05-06-2022 History of Present illness Narrative Images from the original note were not included. Radiation Oncology - New Patient/Consult Note PATIENT NAME: Kirt Renya PATIENT Signed: Toribio Michaud MD I spent a total of 60 minutes on the date of the service which included preparing to see the patient, [id number] patient care, and counseling and educating the patient/family/caregiver. This document has been created with the use of voice recognition technology. It may contain inaccuracies, misspellings, inaccurate syntax or inappropriate word context that are a result of the inadequacies/shortcomings of said technology/software. documented in this encounter [facility] 05-06-2022 History of Present illness Narrative This encounter was opened in error. documented in this encounter [facility] 05-06-2022 Instructions Paco Bonds MD - 05/06/2022 11:26 AM EDT Please schedule CT's here Please reschedule MRI to [facility] facility [facility] RTC after scans Repeat labs on return documented in this encounter [facility] 05-06-2022 Nurse Note Radiation Therapy - Patient Education Note PATIENT NAME: Kirt Reyna PATIENT May 06, 2022 [facility] FACILITY/LOCATION: [facility] READINESS TO LEARN Cognitive Ability: Alert and [...] need for social work, van service, and community advocate. Was approved? No Signed by: Heidi Horta LPN documented in this encounter [facility] 05-06-2022 History of Present illness Narrative Images from the original note were not included. NAME: Kirt Reyna [facility] NO.: [id number] DATE OF SERVICE: May 06, 2022 Referring [...] which included preparing to see the patient, [id number] patient care, completing clinical documentation, obtaining and/or reviewing separately obtained history, performing a medically appropriate examination, counseling and educating the patient/family/caregiver, ordering medications, tests, or procedures, communicating with other HCPs (not separately reported), and independently interpreting results (not separately reported). Paco Bonds MD, CPE Hematology and Oncology Services Provided at: [place], [place] CC: Phil Liu documented in this encounter [facility] 05-06-2022 Nurse Note Patient is concerned about getting Chemo due to having POTS, she spoke to Dr. Michaud and another Physician and they do not think she needs Chemo but wants to discuss this with you. Radha Lunsford MA documented in this encounter [facility] 05-02-2022 Nurse Note What is the [...] No Drains: No documented in this encounter [facility] 05-02-2022 History of Present illness Narrative COLORECTAL SURGERY May 02, 2022 Kirt Reyna 52 year old This consult was requested by Dr. Liu and my final recommendations will be communicated to the requesting health care provider by way of the shared medical record for internal providers or letter via the [employer] for external providers. Chief Complaint: [...] reveals left sided and posterior anorectal mass Occupational Health And Safety Manager present: Yes, Whitley Pina Anoscopy: The patient [...] MD Colorectal Surgery documented in this encounter [facility] 04-24-2022 Note OPERATIVE NOTE OPERATION DATE: [...] good condition. CC: Sondra Liu M.D. [facility] 02-20-2022 Note Chief Complaint consultation for hemorroids [...] mellitus type 2: Father. Parkinson disease: Father. [facility] Comment on above: Result Comment: Elec tronically Signed By: RODERICK SERNA, Vitaly Machado\Date and Time Signed: 02/20/22 17:08 EDT Evaluation + Plan note No data available for this section General Surgery [place] Evaluation note Diagnosis Rectal mass- Primary Other symptoms involving digestive system Anal cancer (HCC) Malignant neoplasm of anus, unspecified site documented in this encounter [facility] note* Diagnosis OPENED IN ERROR- Primary To allow closing an encounter opened in error (used in SmartSet) documented in this encounter [facility] note* Diagnosis Anal cancer (HCC) Malignant neoplasm of anus, unspecified site documented in this encounter [facility] note* Diagnosis Anal cancer (HCC) Malignant neoplasm of anus, unspecified site documented in this encounter [facility] note* Diagnosis Anal cancer (HCC)- Primary Malignant neoplasm of anus, unspecified site POTS (postural orthostatic tachycardia syndrome) Tachycardia, unspecified documented in this encounter [facility] note* Diagnosis Anal cancer (HCC)- Primary Malignant neoplasm of anus, unspecified site documented in this encounter [facility] note* Diagnosis Anal cancer (HCC)- Primary Malignant neoplasm of anus, unspecified site documented in this encounter [facility] note* Diagnosis Anal cancer (HCC)- Primary Malignant neoplasm of anus, unspecified site [facility]* Diagnosis Anal cancer (HCC)- Primary Malignant neoplasm of anus, unspecified site POTS (postural orthostatic tachycardia syndrome) Tachycardia, unspecified documented in this encounter [facility] note* Diagnosis Anal cancer (HCC)- Primary Malignant neoplasm of anus, unspecified site POTS (postural orthostatic tachycardia syndrome) Tachycardia, unspecified documented in this encounter [facility] note* Diagnosis Anal cancer (HCC) Malignant neoplasm of anus, unspecified site documented in this encounter [facility] note* Diagnosis Anal cancer (HCC)- Primary Malignant neoplasm of anus, unspecified site POTS (postural orthostatic tachycardia syndrome) Tachycardia, unspecified documented in this encounter [facility] note* Diagnosis Anal cancer (HCC)- Primary Malignant neoplasm of anus, unspecified site POTS (postural orthostatic tachycardia syndrome) Tachycardia, unspecified documented in this encounter [facility] note* Diagnosis Anal cancer (HCC)- Primary Malignant neoplasm of anus, unspecified site POTS (postural orthostatic tachycardia syndrome) Tachycardia, unspecified documented in this encounter [facility] note* Diagnosis Anal cancer (HCC)- Primary Malignant neoplasm of anus, unspecified site POTS (postural orthostatic tachycardia syndrome) Tachycardia, unspecified documented in this encounter [facility] note* Diagnosis Anal cancer (HCC)- Primary Malignant neoplasm of anus, unspecified site [facility]* Diagnosis Anal cancer (HCC)- Primary Malignant neoplasm of anus, unspecified site documented in this encounter [facility] note* Diagnosis Anal cancer (HCC)- Primary Malignant neoplasm of anus, unspecified site POTS (postural orthostatic tachycardia syndrome) Tachycardia, unspecified [facility] Diagnosis Anal cancer (HCC)- Primary Malignant neoplasm of anus, unspecified site POTS (postural orthostatic tachycardia syndrome) Tachycardia, unspecified documented [facility]* Diagnosis Anal cancer (HCC)- Primary Malignant neoplasm of anus, unspecified site POTS (postural orthostatic tachycardia syndrome) Tachycardia, unspecified documented in this encounter [facility] note* Diagnosis Anal cancer (HCC)- Primary Malignant neoplasm of anus, unspecified site documented [facility] this [facility]* Diagnosis Anal cancer (HCC)- Primary Malignant neoplasm of anus, unspecified site POTS (postural orthostatic tachycardia syndrome) Tachycardia, unspecified documented in this encounter [facility]* Diagnosis Anal cancer (HCC)- Primary Malignant neoplasm of anus, unspecified site POTS (postural orthostatic tachycardia syndrome) Tachycardia, unspecified documented in this encounter [facility] note* Diagnosis Anal cancer (HCC)- Primary Malignant neoplasm of anus, unspecified site POTS (postural orthostatic tachycardia syndrome) Tachycardia, unspecified documented in this encounter [facility]* Diagnosis Anal cancer (HCC)- Primary Malignant neoplasm of anus, unspecified site POTS (postural orthostatic tachycardia syndrome) Tachycardia, unspecified documented in this encounter [facility] note* Diagnosis Anal cancer (HCC)- Primary Malignant neoplasm of anus, unspecified site [facility] Diagnosis Anal cancer (HCC)- Primary Malignant neoplasm of anus, unspecified site POTS (postural orthostatic tachycardia syndrome) Tachycardia, unspecified documented in this encounter [facility]* Diagnosis Anal cancer (HCC)- Primary Malignant neoplasm of anus, unspecified site [facility] Diagnosis Anal cancer (HCC) Malignant neoplasm of anus, unspecified site documented in this encounter [facility]* Diagnosis Anal cancer (HCC)- Primary Malignant neoplasm of anus, unspecified site [facility]* Diagnosis Anal cancer (HCC)- Primary Malignant neoplasm of anus, unspecified site POTS (postural orthostatic tachycardia syndrome) Tachycardia, unspecified documented in this encounter [facility] note* Diagnosis Malignant neoplasm of anus (HCC)- Primary Malignant neoplasm of anus, unspecified site Anal cancer (HCC) Malignant neoplasm of anus, unspecified site documented in this encounter [facility] note* Diagnosis 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, unspecified site documented in this encounter [facility] note* Diagnosis Anal cancer (HCC)- Primary Malignant neoplasm of anus, unspecified site POTS (postural orthostatic tachycardia syndrome) Tachycardia, unspecified documented in this encounter [facility] note* Diagnosis Malignant neoplasm of anus (HCC)- Primary Malignant neoplasm of anus, unspecified site documented [facility] this encounter [facility]* Diagnosis Encounter for follow-up surveillance of anal cancer- Primary documented in this encounter [facility] note* Diagnosis Encounter for screening for osteoporosis- Primary Special screening for osteoporosis Symptomatic menopausal or female climacteric states Rectal cancer (HCC) Malignant neoplasm of rectum documented in this encounter [facility] note* Diagnosis Anal cancer (HCC)- Primary Malignant neoplasm of anus, unspecified site POTS (postural orthostatic tachycardia syndrome) Tachycardia, unspecified documented in this encounter [facility] note* Diagnosis Malignant neoplasm of anus (HCC)- Primary Malignant neoplasm of anus, unspecified site documented [facility]* Diagnosis 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, unspecified site [facility] Diagnosis 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, unspecified site documented [facility]* Diagnosis Anal cancer (HCC)- Primary Malignant neoplasm of anus, unspecified site POTS (postural orthostatic tachycardia syndrome) Tachycardia, unspecified Encounter for follow-up surveillance of anal cancer- Primary [facility] Diagnosis Encounter for follow-up surveillance of anal cancer- Primary [facility] Diagnosis Encounter for screening for osteoporosis- Primary Special screening for osteoporosis 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 Anal cancer (HCC) Malignant neoplasm of anus, unspecified site [facility] Diagnosis Anal itching- Primary Pruritus ani Diarrhea, unspecified type [facility] Diagnosis 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, unspecified site documented in this encounter [facility] note* Diagnosis Anal cancer (HCC) Malignant neoplasm of anus, unspecified site documented in this encounter [facility] note* Diagnosis Anal cancer (HCC) Malignant neoplasm of anus, unspecified site documented in this encounter [facility] note* Diagnosis Anal cancer (HCC) Malignant neoplasm of anus, unspecified site documented in this encounter [facility] note* Diagnosis Encounter for follow-up surveillance of anal cancer- Primary documented in this encounter [facility] Discharge instructions No data available for this section General Surgery [facility] note No data available for this section General Surgery [employer] Reason for Referral Specialty Diagnoses / Procedures Referred By Dimitri t Referred To Contact Radiology / CT IMAGING Diagnoses Malignant neoplasm of anus (HCC) Procedures CT CHEST WO IVCON DIAGNOSTIC COMPUTED TOMOGRAPHY THORAX W/O CNTMIKYT Toribio Michaud MD [address] [place] [address] Toribio Michaud MD [address] [place] [address] Referral ID Status Reason Start Date Expiration Date V isits Requested Visits Authorized [id number] Denied Auto-Generat ed Referral Patient Cleared - Admin/Chairm an/Director advise to proceed or did not respond 09/18/2023 10/18/2023 1 0 Specialty Diagnoses / Procedures Referred By Contac t Referred To Contact CT IMAGING Diagnoses Malignant neoplasm of anus (HCC) Procedures CT CHEST WO IVCON DIAGNOSTIC COMPUTED TOMOGRAPHY THORAX W/O CNTRST Toribio Michaud MD [address] [place] [address] [place] [address] Referral ID Status Reason Start Date Expiration Date Visits Requested Visits Authorized [id number] Waiting for Response Auto-Generat ed Referral 09/18/2023 10/18/2023 1 1 Specialty Diagnoses / Procedures Referred By Contac t Referred To Contact MR IMAGING Diagnoses Malignant neoplasm of anus (HCC) Procedures MRI ABDOMEN WO/W IVCON MRI ABDOMEN W/O & W/CONTRAST MATERIAL Toribio Michaud MD [address] [place] [address] [place] [address] Referral ID Status Reason Start Date Expiration Date Visits Requested Visits Authorized [id number] Authorized Auto-Generat ed Referral 09/16/2023 10/16/2023 1 1 Specialty Diagnoses / Procedures Referred By Contac t Referred To Contact MR IMAGING Diagnoses Malignant neoplasm of anus (HCC) Procedures MRI RECTUM WO/W IVCON MRI PELVIS W/O & W/CONTRAST MATERIAL Toribio Michaud MD [address] [place] [address] [place] [address] Referral ID Status Reason Start Date Expiration Date Visits Requested Visits Authorized [id number] Authorized Auto-Generat ed Referral 09/16/2023 10/16/2023 1 1 Specialty Diagnoses / Procedures Referred By Contac t Referred To Contact [facility] Diagnoses Malignant neoplasm of anus (HCC) Procedures CONSULT TO PHYSICAL THERAPY PHYSICAL THERAPY EVALUATION HIGH COMPLEX 45 MINS Toribio Michaud MD [address] [place] [address] [facility] [place] [id number] Referral ID Status Reason Start Date Expiration Date V isits Requested Visits Authorized [id number] Closed Auto-Generate d Referral 09/06/2022 09/06/2023 1 1 Specialty Diagnoses / Procedures Referred By Contac t Referred To Contact MR IMAGING Diagnoses Malignant neoplasm of anus (HCC) Procedures MRI RECTUM WO/W IVCON MRI PELVIS W/O & W/CONTRAST MATERIAL Toribio Michaud MD [address] [place] [address] Mr Imaging Referral ID Status Reason Start Date Expiration Date Visits Requested Visits Authorized [id number] Pending Review Auto-Generat ed Referral 10/14/2022 10/04/2023 1 1 Specialty Diagnoses / Procedures Referred By Contac t Referred To Contact Radiation Oncology Diagnoses Anal cancer (HCC) Procedures RAD/ONC CONSULT OFFICE/OUTPATIENT [facility] MDM 60-[place] [id number] [facility] [address] [place] [address] Referral ID Status Reason Start Date Expiration Date Visits Requested Visits Authorized [id number] Authorized PCP Requested Referral 2 05/02/2023 1 1 Specialty Diagnoses / Procedures Referred By Contac t Referred To Contact Oncology Diagnoses Anal cancer (HCC) Procedures CONSULT TO ONCOLOGY OFFICE/OUTPATIENT [facility] MDM 60-[place] [address] [address] [address] [place] [id number] Referral ID Status Reason Start Date Expiration Date Visits Requested Visits Authorized [id number] Authorized PCP Requested Referral 2 05/02/2023 1 1 Specialty Diagnoses / Procedures Referred By Contac t Referred To Contact CT IMAGING Diagnoses Anal cancer (HCC) Procedures CT ABDOMEN W IVCON [place] ABDOMEN [place] [address] [address] [place] [id number] Imaging Referral ID Status Reason Start Date Expiration Date Visits Requested Visits Authorized [id number] Pending Review Auto-Generat ed Referral 2 06/01/2023 1 1 Specialty Diagnoses / Procedures Referred By Contac t Referred To Contact CT IMAGING Diagnoses Anal cancer (HCC) Procedures CT CHEST W IVCON DIAGNOSTIC COMPUTED TOMOGRAPHY THORAX W/[place] [address] [address] [address] Imaging Referral ID Status Reason Start Date Expiration Date Visits Requested Visits Authorized [id number] Pending Review Auto-Generat ed Referral 2 06/01/2023 1 1 Specialty Diagnoses / Procedures Referred By Contac t Referred To Contact MR IMAGING Diagnoses Anal cancer (HCC) Procedures MRI RECTUM WO/W IVCON MRI PELVIS W/O & [place] [address] [address] [facility] [address] [place] [address] Mr Imaging Referral ID Status Reason Start Date Expiration Date Visits Requested Visits Authorized [id number] Pending Review Auto-Generat ed Referral 2 06/01/2023 [...] Care Team (unrecognized sect ion and content) Dielectric Machine Operator Relationship Specialty Start Date End Date Sondra Liu MD PCP - General Family Medicine 08/17/13 Dielectric Machine Operator Relationship Specialty Start Date End Date Sondra Liu MD PCP - General Family Medicine 08/17/13 Dielectric Machine Operator Relationship Specialty Start Date End Date Sondra Liu MD PCP - General Family Medicine 08/17/13 Dielectric Machine Operator Relationship Specialty Start Date End Date Sondra Liu MD PCP - General Family Medicine 08/17/13 Dielectric Machine Operator Relationship Specialty Start Date End Date Sondra Liu MD PCP - General Family Medicine 08/17/13 Dielectric Machine Operator Relationship Specialty Start Date End Date Sondra Liu MD PCP - General Family Medicine 08/17/13 Paco Bonds MD [address] [place] [address] Physician Hematology/Oncology 05/23/22 Gerardo Mckinnon, ABIGAIL.[facility] [address] [place] [address] Nurse Practitioner Hematology/Oncology 05/23/22 Leandra Whitehead, BLAIR [address] [place] [address] Specialty Edge Inker Heels Hematology/Oncology 05/23/22 Toribio Michaud MD [address] [place] [address] Physician Radiation Oncology 05/23/22 Dielectric Machine Operator Relationship Specialty Start Date End Date Sondra Liu MD PCP - General Family Medicine 08/17/13 Paco Bonds MD [address] [facility] [place] [address] Physician Hematology/Oncology 05/23/22 Gerardo Mckinnon, EDUCATION MANAGERS.CLINIQUE COUNTER MANAGER [address] [place] [address] Nurse Practitioner Hematology/Oncology 05/23/22 Leandra Whitehead, BLAIR [address] [place] [address] Specialty Edge Inker Heels Hematology/Oncology 05/23/22 Toribio Michaud MD [address] [place] [address] Physician Radiation Oncology 05/23/22 Dielectric Machine Operator Relationship Specialty Start Date End Date Sondra Liu MD PCP - General Family Medicine 08/17/13 Paco Bonds MD [address] [facility] [place] [address] Physician Hematology/Oncology 05/23/22 Gerardo Mckinnon, EDUCATION MANAGERS.CLINIQUE COUNTER MANAGER [address] [place] [address] Nurse Practitioner Hematology/Oncology 05/23/22 Leandra Whitehead, BLAIR [address] [place] [address] Specialty Edge Inker Heels Hematology/Oncology 05/23/22 Toribio Michaud MD [address] [place] [address] Physician Radiation Oncology 05/23/22 Dielectric Machine Operator Relationship Specialty Start Date End Date Sondra Liu MD PCP - General Family Medicine 08/17/13 Paco Bonds MD [address] [facility] [place] [address] Physician Hematology/Oncology 05/23/22 Gerardo Mckinnon, EDUCATION MANAGERS.CLINIQUE COUNTER MANAGER [address] [facility] [place] [address] Nurse Practitioner Hematology/Oncology 05/23/22 Leandra Whitehead, BLAIR [address] [facility] [place] [address] Specialty Edge Inker Heels Hematology/Oncology 05/23/22 Toribio Michaud MD [address] [facility] [place] [address] Physician Radiation Oncology 05/23/22 Dielectric Machine Operator Relationship Specialty Start Date End Date Sondra Liu MD PCP - General Family Medicine 08/17/13 Paco Bonds MD [address] [facility] [place] [address] Physician Hematology/Oncology 05/23/22 Gerardo Mckinnon, EDUCATION MANAGERS.CLINIQUE COUNTER MANAGER [address] [facility] [place] [address] Nurse Practitioner Hematology/Oncology 05/23/22 Leandra Whitehead, BLAIR [address] [place] [address] Specialty Edge Inker Heels Hematology/Oncology 05/23/22 Toribio Michaud MD [address] [facility] [place] [address] Physician Radiation Oncology 05/23/22 Dielectric Machine Operator Relationship Specialty Start Date End Date Sondra Liu MD PCP - General Family Medicine 08/17/13 Paco Bonds MD [address] [facility] [place] [address] Physician Hematology/Oncology 05/23/22 Gerardo Mckinnon, EDUCATION MANAGERS.CLINIQUE COUNTER MANAGER [address] [facility] [place] [address] Nurse Practitioner Hematology/Oncology 05/23/22 Leandra Whitehead, BLAIR [address] [place] [address] Specialty Edge Inker Heels Hematology/Oncology 05/23/22 Toribio Michaud MD [address] [place] [address] Physician Radiation Oncology 05/23/22 Dielectric Machine Operator Relationship Specialty Start Date End Date Sondra Liu MD PCP - General Family Medicine 08/17/13 Paco Bonds MD [address] [place] [address] Physician Hematology/Oncology 05/23/22 Gerardo Mckinnon, EDUCATION MANAGERS.CLINIQUE COUNTER MANAGER [address] [place] [address] Nurse Practitioner Hematology/Oncology 05/23/22 Leandra Whitehead, BLAIR [address] [place] [address] Specialty Edge Inker Heels Hematology/Oncology 05/23/22 Toribio Michaud MD [address] [place] [address] Physician Radiation Oncology 05/23/22 Dielectric Machine Operator Relationship Specialty Start Date End Date Sondra Liu MD PCP - General Family Medicine 08/17/13 Paco Bonds MD [address] [facility] [place] [address] Physician Hematology/Oncology 05/23/22 Gerardo Mckinnon, EDUCATION MANAGERS.[facility] [address] [place] [address] Nurse Practitioner Hematology/Oncology 05/23/22 Leandra Whitehead, BLAIR [address] [place] [address] Specialty Edge Inker Heels Hematology/Oncology 05/23/22 Toribio Michaud MD [address] [facility] [place] [address] Physician Radiation Oncology 05/23/22 Dielectric Machine Operator Relationship Specialty Start Date End Date Sondra Liu MD PCP - General Family Medicine 08/17/13 Paco Bonds MD [address] [facility] [place] [address] Physician Hematology/Oncology 05/23/22 Gerardo Mckinnon, EDUCATION MANAGERS.[facility] [address] [place] [address] Nurse Practitioner Hematology/Oncology 05/23/22 Leandra Whitehead, BLAIR [address] [place] [address] Specialty Edge Inker Heels Hematology/Oncology 05/23/22 Toribio Michaud MD [address] [place] [address] Physician Radiation Oncology 05/23/22 Dielectric Machine Operator Relationship Specialty Start Date End Date Sondra Liu MD PCP - General Family Medicine 08/17/13 Paco Bonds MD [address] [facility] [place] [address] Physician Hematology/Oncology 05/23/22 Gerardo Mckinnon, EDUCATION MANAGERS.[facility] [address] [place] [address] Nurse Practitioner Hematology/Oncology 05/23/22 Leandra Whitehead, BLAIR [address] [place] [address] Specialty Edge Inker Heels Hematology/Oncology 05/23/22 Toribio Michaud MD [address] [place] [address] Physician Radiation Oncology 05/23/22 Dielectric Machine Operator Relationship Specialty Start Date End Date Sondra Liu MD PCP - General Family Medicine 08/17/13 Paco Bonds MD [address] [facility] [place] [address] Physician Hematology/Oncology 05/23/22 Gerardo Mckinnon, EDUCATION MANAGERS.[facility] [address] [place] [address] Nurse Practitioner Hematology/Oncology 05/23/22 Leandra Whitehead, BLAIR [address] [place] [address] Specialty Edge Inker Heels Hematology/Oncology 05/23/22 Toribio Michaud MD [address] [place] [address] Physician Radiation Oncology 05/23/22 Dielectric Machine Operator Relationship Specialty Start Date End Date Sondra Liu MD PCP - General Family Medicine 08/17/13 Paco Bonds MD [address] [facility] [place] [address] Physician Hematology/Oncology 05/23/22 Gerardo Mckinnon, EDUCATION MANAGERS.CLINIQUE COUNTER MANAGER [address] [place] [address] Nurse Practitioner Hematology/Oncology 05/23/22 Leandra Whitehead, BLAIR [address] [place] [address] Specialty Edge Inker Heels Hematology/Oncology 05/23/22 Toribio Michaud MD [address] [place] [address] Physician Radiation Oncology 05/23/22 Dielectric Machine Operator Relationship Specialty Start Date End Date Sondra Liu MD PCP - General Family Medicine 08/17/13 Paco Bonds MD [address] [facility] [place] [address] Physician Hematology/Oncology 05/23/22 Gerardo Mckinnon, EDUCATION MANAGERS.CLINIQUE COUNTER MANAGER [address] [place] [address] Nurse Practitioner Hematology/Oncology 05/23/22 Leandra Whitehead, BLAIR [address] [place] [address] Specialty Edge Inker Heels Hematology/Oncology 05/23/22 Toribio Michaud MD [address] [place] [address] Physician Radiation Oncology 05/23/22 Dielectric Machine Operator Relationship Specialty Start Date End Date Sondra Liu MD PCP - General Family Medicine 08/17/13 Paco Bonds MD [address] [facility] [place] [address] Physician Hematology/Oncology 05/23/22 Gerardo Mckinnon, EDUCATION MANAGERS.CLINIQUE COUNTER MANAGER [address] [facility] [place] [address] Nurse Practitioner Hematology/Oncology 05/23/22 Leandra Whitehead, BLAIR [address] [facility] [place] [address] Specialty Edge Inker Heels Hematology/Oncology 05/23/22 Toribio Michaud MD [address] [facility] [place] [address] Physician Radiation Oncology 05/23/22 Dielectric Machine Operator Relationship Specialty Start Date End Date Sondra Liu MD PCP - General Family Medicine 08/17/13 Paco Bonds MD [address] [facility] [place] [address] Physician Hematology/Oncology 05/23/22 Gerardo Mckinnon, EDUCATION MANAGERS.CLINIQUE COUNTER MANAGER [address] [facility] [place] [address] Nurse Practitioner Hematology/Oncology 05/23/22 Leandra Whitehead, BLAIR [address] [facility] [place] [address] Specialty Edge Inker Heels Hematology/Oncology 05/23/22 Toribio Michaud MD [address] [facility] [place] [address] Physician Radiation Oncology 05/23/22 Dielectric Machine Operator Relationship Specialty Start Date End Date Sondra Liu MD PCP - General Family Medicine 08/17/13 Paco Bonds MD [address] [facility] [place] [address] Physician Hematology/Oncology 05/23/22 Gerardo Mckinnon, EDUCATION MANAGERS.CLINIQUE COUNTER MANAGER [address] [facility] [place] [address] Nurse Practitioner Hematology/Oncology 05/23/22 Leandra Whitehead, BLAIR [address] [facility] [place] [address] Specialty Edge Inker Heels Hematology/Oncology 05/23/22 Toribio Michaud MD [address] [facility] [place] [address] Physician Radiation Oncology 05/23/22 Dielectric Machine Operator Relationship Specialty Start Date End Date Sondra Liu MD PCP - General Family Medicine 08/17/13 Paco Bonds MD [address] [facility] [place] [address] Physician Hematology/Oncology 05/23/22 Gerardo Mckinnon, EDUCATION MANAGERS.CLINIQUE COUNTER MANAGER [address] [facility] [place] [address] Nurse Practitioner Hematology/Oncology 05/23/22 Leandra Whitehead, BLAIR [address] [facility] [place] [address] Specialty Edge Inker Heels Hematology/Oncology 05/23/22 Toribio Michaud MD [address] [facility] [place] [address] Physician Radiation Oncology 05/23/22 Dielectric Machine Operator Relationship Specialty Start Date End Date Sondra Liu MD PCP - General Family Medicine 08/17/13 Paco Bonds MD [address] [facility] [place] [address] Physician Hematology/Oncology 05/23/22 Gerardo Mckinnon, EDUCATION MANAGERS.CLINIQUE COUNTER MANAGER [address] [facility] [address] [place], [place] [address] Nurse Practitioner Hematology/Oncology 05/23/22 Leandra Whitehead, BLAIR [address] [facility] [place] [address] Specialty Edge Inker Heels Hematology/Oncology 05/23/22 Toribio Michaud MD [address] [facility] [place] [address] Physician Radiation Oncology 05/23/22 Dielectric Machine Operator Relationship Specialty Start Date End Date Sondra Liu MD PCP - General Family Medicine 08/17/13 Paco Bonds MD [address] [facility] [place] [address] Physician Hematology/Oncology 05/23/22 Gerardo Mckinnon, EDUCATION MANAGERS.CLINIQUE COUNTER MANAGER [address] [facility] [place] [address] Nurse Practitioner Hematology/Oncology 05/23/22 Leandra Whitehead, BLAIR [address] [facility] [place] [address] Specialty Edge Inker Heels Hematology/Oncology 05/23/22 Toribio Michaud MD [address] [facility] [place] [address] Physician Radiation Oncology 05/23/22 Dielectric Machine Operator Relationship Specialty Start Date End Date Sondra Liu MD PCP - General Family Medicine 08/17/13 Paco Bonds MD [address] [facility] [place] [address] Physician Hematology/Oncology 05/23/22 Gerardo Mckinnon, EDUCATION MANAGERS.CLINIQUE COUNTER MANAGER [address] [facility] [place] [address] Nurse Practitioner Hematology/Oncology 05/23/22 Leandra Whitehead, BLAIR [address] [facility] [place] [address] Specialty Edge Inker Heels Hematology/Oncology 05/23/22 Toribio Michaud MD [address] [facility] [place] [address] Physician Radiation Oncology 05/23/22 Dielectric Machine Operator Relationship Specialty Start Date End Date Sondra Liu MD PCP - General Family Medicine 08/17/13 Paco Bonds MD [address] [facility] [place] [address] Physician Hematology/Oncology 05/23/22 Gerardo Mckinnon, EDUCATION MANAGERS.CLINIQUE COUNTER MANAGER [address] [facility] [place] [address] Nurse Practitioner Hematology/Oncology 05/23/22 Leandra Whitehead, BLAIR [address] [facility] [place] [address] Specialty Edge Inker Heels Hematology/Oncology 05/23/22 Toribio Michaud MD [address] [facility] [place] [address] Physician Radiation Oncology 05/23/22 Dielectric Machine Operator Relationship Specialty Start Date End Date Sondra Liu MD PCP - General Family Medicine 08/17/13 Paco Bonds MD [address] [facility] [place] [address] Physician Hematology/Oncology 05/23/22 Gerardo Mckinnon, EDUCATION MANAGERS.CLINIQUE COUNTER MANAGER [address] [facility] [place] [address] Nurse Practitioner Hematology/Oncology 05/23/22 Leandra Whitehead, RN [address] [facility] [place] [address] Specialty Edge Inker Heels Hematology/Oncology 05/23/22 Toribio Michaud MD [address] [facility] [address] [place], [place] [address] Physician Radiation Oncology 05/23/22 Dielectric Machine Operator Relationship Specialty Start Date End Date Sondra Liu MD PCP - General Family Medicine 08/17/13 Paco Bonds MD [address] [facility] [place] [address] Physician Hematology/Oncology 05/23/22 Gerardo Mckinnon, EDUCATION MANAGERS.CLINIQUE COUNTER MANAGER [address] [facility] [place] [address] Nurse Practitioner Hematology/Oncology 05/23/22 Leandra Whitehead, BLAIR [address] [facility] [place] [address] Specialty Edge Inker Heels Hematology/Oncology 05/23/22 Toribio Michaud MD [address] [facility] [place] [address] Physician Radiation Oncology 05/23/22 Dielectric Machine Operator Relationship Specialty Start Date End Date Sondra Liu MD PCP - General Family Medicine 08/17/13 Paco Bonds MD [address] [facility] [place] [address] Physician Hematology/Oncology 05/23/22 Gerardo Mckinnon, EDUCATION MANAGERS.CLINIQUE COUNTER MANAGER [address] [facility] [place] [address] Nurse Practitioner Hematology/Oncology 05/23/22 Leandra Whitehead, RN [address] [facility] [place] [address] Specialty Edge Inker Heels Hematology/Oncology 05/23/22 Toribio Michaud MD [address] [facility] [place] [address] Physician Radiation Oncology 05/23/22 Dielectric Machine Operator Relationship Specialty Start Date End Date Sondra Liu MD PCP - General Family Medicine 08/17/13 Paco Bonds MD [address] [facility] [place] [address] Physician Hematology/Oncology 05/23/22 Gerardo Mckinnon, EDUCATION MANAGERS.CLINIQUE COUNTER MANAGER [address] [facility] [place] [address] Nurse Practitioner Hematology/Oncology 05/23/22 Leandra Whitehead, RN [address] [facility] [place] [address] Specialty Edge Inker Heels Hematology/Oncology 05/23/22 Toribio Michaud MD [address] [facility] [place] [address] Physician Radiation Oncology 05/23/22 Dielectric Machine Operator Relationship Specialty Start Date End Date Sondra Liu MD PCP - General Family Medicine 08/17/13 Paco Bonds MD [address] [facility] [place] [address] Physician Hematology/Oncology 05/23/22 Gerardo Mckinnon, EDUCATION MANAGERS.CLINIQUE COUNTER MANAGER [address] [facility] [place] [address] Nurse Practitioner Hematology/Oncology 05/23/22 Leandra Whitehead, RN [address] [facility] [place] [address] Specialty Edge Inker Heels Hematology/Oncology 05/23/22 Toribio Michaud MD [address] [facility] [place] [address] Physician Radiation Oncology 05/23/22 Dielectric Machine Operator Relationship Specialty Start Date End Date Sondra Liu MD PCP - General Family Medicine 08/17/13 Paco Bonds MD [address] [facility] [place] [address] Physician Hematology/Oncology 05/23/22 Gerardo Mckinnon, EDUCATION MANAGERS.CLINIQUE COUNTER MANAGER [address] [facility] [place] [address] Nurse Practitioner Hematology/Oncology 05/23/22 Leandra Whitehead, RN [address] [facility] [place] [address] Specialty Edge Inker Heels Hematology/Oncology 05/23/22 Toribio Michaud MD [address] [facility] [place] [address] Physician Radiation Oncology 05/23/22 Dielectric Machine Operator Relationship Specialty Start Date End Date Sondra Liu MD PCP - General Family Medicine 08/17/13 Paco Bonds MD [address] [facility] [place] [address] Physician Hematology/Oncology 05/23/22 Gerardo Mckinnon, EDUCATION MANAGERS.CLINIQUE COUNTER MANAGER [address] [facility] [place] [address] Nurse Practitioner Hematology/Oncology 05/23/22 Leandra Whitehead, BLAIR [address] [place] [address] Specialty Edge Inker Heels Hematology/Oncology 05/23/22 Toribio Michaud MD [address] [place] [address] Physician Radiation Oncology 05/23/22 Dielectric Machine Operator Relationship Specialty Start Date End Date Sondra Liu MD PCP - General Family Medicine 08/17/13 Paco Bonds MD [address] [place] [address] Physician Hematology/Oncology 05/23/22 Gerardo Mckinnon, EDUCATION MANAGERS.CLINIQUE COUNTER MANAGER [address] [place] [address] Nurse Practitioner Hematology/Oncology 05/23/22 Leandra Whitehead, BLAIR [address] [place] [address] Specialty Edge Inker Heels Hematology/Oncology 05/23/22 Toribio Michaud MD [address] [place] [address] Physician Radiation Oncology 05/23/22 Dielectric Machine Operator Relationship Specialty Start Date End Date Sondra Liu MD PCP - General Family Medicine 08/17/13 Paco Bonds MD [address] [place] [address] Physician Hematology/Oncology 05/23/22 Gerardo Mckinnon, EDUCATION MANAGERS.CLINIQUE COUNTER MANAGER [address] [place] [address] Nurse Practitioner Hematology/Oncology 05/23/22 Leandra Whitehead, BLAIR [address] [place] [address] Specialty Edge Inker Heels Hematology/Oncology 05/23/22 Toribio Michaud MD [address] [facility] [place] [address] Physician Radiation Oncology 05/23/22 Dielectric Machine Operator Relationship Specialty Start Date End Date Sondra Liu MD PCP - General Family Medicine 08/17/13 Paco Bonds MD [address] [place] [address] Physician Hematology/Oncology 05/23/22 Gerardo Mckinnon, EDUCATION MANAGERS.CLINIQUE COUNTER MANAGER [address] [place] [address] Nurse Practitioner Hematology/Oncology 05/23/22 Leandra Whitehead, BLAIR [address] [place] [address] Specialty Edge Inker Heels Hematology/Oncology 05/23/22 Toribio Michaud MD [address] [place] [address] Physician Radiation Oncology 05/23/22 Dielectric Machine Operator Relationship Specialty Start Date End Date Sondra Liu MD PCP - General Family Medicine 08/17/13 Paco Bonds MD [address] [facility] [place] [address] Physician Hematology/Oncology 05/23/22 Gerardo Mckinnon, EDUCATION MANAGERS.CLINIQUE COUNTER MANAGER [address] [facility] [place] [address] Nurse Practitioner Hematology/Oncology 05/23/22 Toribio Michaud MD [address] [place] [address] Physician Radiation Oncology 05/23/22 Dielectric Machine Operator Relationship Specialty Start Date End Date Sondra Liu MD PCP - General Family Medicine 08/17/13 Paco Bonds MD [address] [facility] [place] [address] Physician Hematology/Oncology 05/23/22 Gerardo Mckinnon, EDUCATION MANAGERS.CLINIQUE COUNTER MANAGER [address] [place] [address] Nurse Practitioner Hematology/Oncology 05/23/22 Toribio Michaud MD [address] [facility] [place] [address] Physician Radiation Oncology 05/23/22 Dielectric Machine Operator Relationship Specialty Start Date End Date Sondra Liu MD PCP - General Family Medicine 08/17/13 Paco Bonds MD [address] [facility] [place] [address] Physician Hematology/Oncology 05/23/22 Gerardo Mckinnon, EDUCATION MANAGERS.CLINIQUE COUNTER MANAGER [address] [place] [address] Nurse Practitioner Hematology/Oncology 05/23/22 Toribio iMchaud MD [address] [place] [address] Physician Radiation Oncology 05/23/22 Dielectric Machine Operator Relationship Specialty Start Date End Date Sondra Liu MD PCP - General Family Medicine 08/17/13 Paco Bonds MD [address] [place] [address] Physician Hematology/Oncology 05/23/22 Gerardo Mckinnon, EDUCATION MANAGERS.CLINIQUE COUNTER MANAGER [address] [place] [address] Nurse Practitioner Hematology/Oncology 05/23/22 Toribio Michaud MD [address] [place] [address] Physician Radiation Oncology 05/23/22 Dielectric Machine Operator Relationship Specialty Start Date End Date Sondra Liu MD PCP - General Family Medicine 08/17/13 Paco Bonds MD [address] [place] [address] Physician Hematology/Oncology 05/23/22 Gerardo Mckinnon, EDUCATION MANAGERS.CLINIQUE COUNTER MANAGER [address] [place] [address] Nurse Practitioner Hematology/Oncology 05/23/22 Toribio Michaud MD [address] [place] [address] Physician Radiation Oncology 05/23/22 Dielectric Machine Operator Relationship Specialty Start Date End Date Sondra Liu MD PCP - General Family Medicine 08/17/13 Paco Bonds MD [address] [place] [address] Physician Hematology/Oncology 05/23/22 Gerardo Mckinnon, EDUCATION MANAGERS.CLINIQUE COUNTER MANAGER [address] [place] [address] Nurse Practitioner Hematology/Oncology 05/23/22 Toribio Michaud MD [address] [place] [address] Physician Radiation Oncology 05/23/22 Dielectric Machine Operator Relationship Specialty Start Date End Date Sondra Liu MD PCP - General Family Medicine 08/17/13 Paco Bonds MD [address] [place] [address] Physician Hematology/Oncology 05/23/22 Gerardo Mckinnon, EDUCATION MANAGERS.CLINIQUE COUNTER MANAGER [address] [place] [address] Nurse Practitioner Hematology/Oncology 05/23/22 Toribio Michaud MD [address] [place] [address] Physician Radiation Oncology 05/23/22 Dielectric Machine Operator Relationship Specialty Start Date End Date Sondra Liu MD PCP - General Family Medicine 08/17/13 Paco Bonds MD [address] [place] [address] Physician Hematology/Oncology 05/23/22 Gerardo Mckinnon, EDUCATION MANAGERS.CLINIQUE COUNTER MANAGER [address] [place] [address] Nurse Practitioner Hematology/Oncology 05/23/22 Toribio Michaud MD [address] [place] [address] Physician Radiation Oncology 05/23/22 Dielectric Machine Operator Relationship Specialty Start Date End Date Sondra Liu MD PCP - General Family Medicine 08/17/13 Paco Bonds MD [address] [place] [address] Physician Hematology/Oncology 05/23/22 Gerardo Mckinnon, EDUCATION MANAGERS.CLINIQUE COUNTER MANAGER [address] [place] [address] Nurse Practitioner Hematology/Oncology 05/23/22 Leandra Whitehead, BLAIR [address] [place] [address] Specialty Edge Inker Heels Hematology/Oncology 05/23/22 05/14/23 Toribio Michaud MD [address] [place] [address] Physician Radiation Oncology 05/23/22 Dielectric Machine Operator Relationship Specialty Start Date End Date Sondra Liu MD PCP - General Family Medicine 08/17/13 Paco Bonds MD [address] [place] [address] [place] [address] Physician Hematology/Oncology 05/23/22 Gerardo Mckinnon APRN.CLINIQUE COUNTER MANAGER [address] [place] [address] [place] [address] Nurse Practitioner Hematology/Oncology 05/23/22 Leandra Whitehead, BLAIR [address] [facility] [place] [address] Specialty Edge Inker Heels Hematology/Oncology 05/23/22 05/14/23 Toribio Michaud MD [address] [place] [address] [place] [address] Physician Radiation Oncology 05/23/22 Dielectric Machine Operator Relationship Specialty Start Date End Date Sondra Liu MD PCP - General Family Medicine 08/17/13 Source Comments (unrecognize d section and content) In the event this informatio n is protected by the Federal Confidentiality of Alcohol and Drug Abuse Patient Records regulations: The Federal rules restrict any use of the information to criminally investigate or prosecute any alcohol or drug abuse patient.[facility] the event this information is protected by the Federal Confidentiality of Alcohol and Drug Abuse Patient Records regulations: The Federal rules restrict any use of the information to criminally investigate or prosecute any alcohol or drug abuse patient.[facility]In the event this information is protected by the Federal Confidentiality of Alcohol and Drug Abuse Patient Records regulations: The Federal rules restrict any use of the information to criminally investigate or prosecute any alcohol or drug abuse patient.[facility]In the event this information is protected by the Federal Confidentiality of Alcohol and Drug Abuse Patient Records regulations: The Federal rules restrict any use of the information to criminally investigate or prosecute any alcohol or drug abuse patient.[facility]In the event this information is protected by the Federal Confidentiality of Alcohol and Drug Abuse Patient Records regulations: The Federal rules restrict any use of the information to criminally investigate or prosecute any alcohol or drug abuse patient.[facility]In the event this information is protected by the Federal Confidentiality of Alcohol and Drug Abuse Patient Records regulations: The Federal rules restrict any use of the information to criminally investigate or prosecute any alcohol or drug abuse patient.[facility]In the event this information is protected by the Federal Confidentiality of Alcohol and Drug Abuse Patient Records regulations: The Federal rules restrict any use of the information to criminally investigate or prosecute any alcohol or drug abuse patient.[facility]In the event this information is protected by the Federal Confidentiality of Alcohol and Drug Abuse Patient Records regulations: The Federal rules restrict any use of the information to criminally investigate or prosecute any alcohol or drug abuse patient.[facility]In the event this information is protected by the Federal Confidentiality of Alcohol and Drug Abuse Patient Records regulations: The Federal rules restrict any use of the information to criminally investigate or prosecute any alcohol or drug abuse patient.[facility]In the event this information is protected by the Federal Confidentiality of Alcohol and Drug Abuse Patient Records regulations: The Federal rules restrict any use of the information to criminally investigate or prosecute any alcohol or drug abuse patient.[facility]In the event this information is protected by the Federal Confidentiality of Alcohol and Drug Abuse Patient Records regulations: The Federal rules restrict any use of the information to criminally investigate or prosecute any alcohol or drug abuse patient.[facility]In the event this information is protected by the Federal Confidentiality of Alcohol and Drug Abuse Patient Records regulations: The Federal rules restrict any use of the information to criminally investigate or prosecute any alcohol or drug abuse patient.[facility]In the event this information is protected by the Federal Confidentiality of Alcohol and Drug Abuse Patient Records regulations: The Federal rules restrict any use of the information to criminally investigate or prosecute any alcohol or drug abuse patient.[facility]In the event this information is protected by the Federal Confidentiality of Alcohol and Drug Abuse Patient Records regulations: The Federal rules restrict any use of the information to criminally investigate or prosecute any alcohol or drug abuse patient.[facility]In the event this information is protected by the Federal Confidentiality of Alcohol and Drug Abuse Patient Records regulations: The Federal rules restrict any use of the information to criminally investigate or prosecute any alcohol or drug abuse patient.[facility] HospitalIn the event this information is protected by the Federal Confidentiality of Alcohol and Drug Abuse Patient Records regulations: The Federal rules restrict any use of the information to criminally investigate or prosecute any alcohol or drug abuse patient.[facility] HospitalIn the event this information is protected by the Federal Confidentiality of Alcohol and Drug Abuse Patient Records regulations: The Federal rules restrict any use of the information to criminally investigate or prosecute any alcohol or drug abuse patient.[facility] HospitalIn the event this information is protected by the Federal Confidentiality of Alcohol and Drug Abuse Patient Records regulations: The Federal rules restrict any use of the information to criminally investigate or prosecute any alcohol or drug abuse patient.[facility] HospitalIn the event this information is protected by the Federal Confidentiality of Alcohol and Drug Abuse Patient Records regulations: The Federal rules restrict any use of the information to criminally investigate or prosecute any alcohol or drug abuse patient.[facility] HospitalIn the event this information is protected by the Federal Confidentiality of Alcohol and Drug Abuse Patient Records regulations: The Federal rules restrict any use of the information to criminally investigate or prosecute any alcohol or drug abuse patient.[facility] HospitalIn the event this information is protected by the Federal Confidentiality of Alcohol and Drug Abuse Patient Records regulations: The Federal rules restrict any use of the information to criminally investigate or prosecute any alcohol or drug abuse patient.[facility] HospitalIn the event this information is protected by the Federal Confidentiality of Alcohol and Drug Abuse Patient Records regulations: The Federal rules restrict any use of the information to criminally investigate or prosecute any alcohol or drug abuse patient.[facility] HospitalIn the event this information is protected by the Federal Confidentiality of Alcohol and Drug Abuse Patient Records regulations: The Federal rules restrict any use of the information to criminally investigate or prosecute any alcohol or drug abuse patient.[facility] HospitalIn the event this information is protected by the Federal Confidentiality of Alcohol and Drug Abuse Patient Records regulations: The Federal rules restrict any use of the information to criminally investigate or prosecute any alcohol or drug abuse patient.[facility]In the event this information is protected by the Federal Confidentiality of Alcohol and Drug Abuse Patient Records regulations: The Federal rules restrict any use of the information to criminally investigate or prosecute any alcohol or drug abuse patient.[facility] HospitalIn the event this information is protected by the Federal Confidentiality of Alcohol and Drug Abuse Patient Records regulations: The Federal rules restrict any use of the information to criminally investigate or prosecute any alcohol or drug abuse patient.[facility] HospitalIn the event this information is protected by the Federal Confidentiality of Alcohol and Drug Abuse Patient Records regulations: The Federal rules restrict any use of the information to criminally investigate or prosecute any alcohol or drug abuse patient.[facility] HospitalIn the event this information is protected by the Federal Confidentiality of Alcohol and Drug Abuse Patient Records regulations: The Federal rules restrict any use of the information to criminally investigate or prosecute any alcohol or drug abuse patient.[facility] HospitalIn the event this information is protected by the Federal Confidentiality of Alcohol and Drug Abuse Patient Records regulations: The Federal rules restrict any use of the information to criminally investigate or prosecute any alcohol or drug abuse patient.[facility] HospitalIn the event this information is protected by the Federal Confidentiality of Alcohol and Drug Abuse Patient Records regulations: The Federal rules restrict any use of the information to criminally investigate or prosecute any alcohol or drug abuse patient.[facility] HospitalIn the event this information is protected by the Federal Confidentiality of Alcohol and Drug Abuse Patient Records regulations: The Federal rules restrict any use of the information to criminally investigate or prosecute any alcohol or drug abuse patient.[facility] HospitalIn the event this information is protected by the Federal Confidentiality of Alcohol and Drug Abuse Patient Records regulations: The Federal rules restrict any use of the information to criminally investigate or prosecute any alcohol or drug abuse patient.[facility] HospitalIn the event this information is protected by the Federal Confidentiality of Alcohol and Drug Abuse Patient Records regulations: The Federal rules restrict any use of the information to criminally investigate or prosecute any alcohol or drug abuse patient.[facility] HospitalIn the event this information is protected by the Federal Confidentiality of Alcohol and Drug Abuse Patient Records regulations: The Federal rules restrict any use of the information to criminally investigate or prosecute any alcohol or drug abuse patient.[facility] HospitalIn the event this information is protected by the Federal Confidentiality of Alcohol and Drug Abuse Patient Records regulations: The Federal rules restrict any use of the information to criminally investigate or prosecute any alcohol or drug abuse patient.[facility] HospitalIn the event this information is protected by the Federal Confidentiality of Alcohol and Drug Abuse Patient Records regulations: The Federal rules restrict any use of the information to criminally investigate or prosecute any alcohol or drug abuse patient.[facility] HospitalIn the event this information is protected by the Federal Confidentiality of Alcohol and Drug Abuse Patient Records regulations: The Federal rules restrict any use of the information to criminally investigate or prosecute any alcohol or drug abuse patient.[facility] HospitalIn the event this information is protected by the Federal Confidentiality of Alcohol and Drug Abuse Patient Records regulations: The Federal rules restrict any use of the information to criminally investigate or prosecute any alcohol or drug abuse patient.[facility] HospitalIn the event this information is protected by the Federal Confidentiality of Alcohol and Drug Abuse Patient Records regulations: The Federal rules restrict any use of the information to criminally investigate or prosecute any alcohol or drug abuse patient.[facility] HospitalIn the event this information is protected by the Federal Confidentiality of Alcohol and Drug Abuse Patient Records regulations: The Federal rules restrict any use of the information to criminally investigate or prosecute any alcohol or drug abuse patient.[facility] HospitalIn the event this information is protected by the Federal Confidentiality of Alcohol and Drug Abuse Patient Records regulations: The Federal rules restrict any use of the information to criminally investigate or prosecute any alcohol or drug abuse patient.[facility] HospitalIn the event this information is protected by the Federal Confidentiality of Alcohol and Drug Abuse Patient Records regulations: The Federal rules restrict any use of the information to criminally investigate or prosecute any alcohol or drug abuse patient.[facility] HospitalIn the event this information is protected by the Federal Confidentiality of Alcohol and Drug Abuse Patient Records regulations: The Federal rules restrict any use of the information to criminally investigate or prosecute any alcohol or drug abuse patient.[facility] HospitalIn the event this information is protected by the Federal Confidentiality of Alcohol and Drug Abuse Patient Records regulations: The Federal rules restrict any use of the information to criminally investigate or prosecute any alcohol or drug abuse patient.[facility] HospitalIn the event this information is protected by the Federal Confidentiality of Alcohol and Drug Abuse Patient Records regulations: The Federal rules restrict any use of the information to criminally investigate or prosecute any alcohol or drug abuse patient.[facility] HospitalIn the event this information is protected by the Federal Confidentiality of Alcohol and Drug Abuse Patient Records regulations: The Federal rules restrict any use of the information to criminally investigate or prosecute any alcohol or drug abuse patient.[facility] HospitalIn the event this information is protected by the Federal Confidentiality of Alcohol and Drug Abuse Patient Records regulations: The Federal rules restrict any use of the information to criminally investigate or prosecute any alcohol or drug abuse patient.[facility] HospitalIn the event this information is protected by the Federal Confidentiality of Alcohol and Drug Abuse Patient Records regulations: The Federal rules restrict any use of the information to criminally investigate or prosecute any alcohol or drug abuse patient.[facility] HospitalIn the event this information is protected by the Federal Confidentiality of Alcohol and Drug Abuse Patient Records regulations: The Federal rules restrict any use of the information to criminally investigate or prosecute any alcohol or drug abuse patient.[facility] HospitalIn the event this information is protected by the Federal Confidentiality of Alcohol and Drug Abuse Patient Records regulations: The Federal rules restrict any use of the information to criminally investigate or prosecute any alcohol or drug abuse patient.[facility] HospitalIn the event this information is protected by the Federal Confidentiality of Alcohol and Drug Abuse Patient Records regulations: The Federal rules restrict any use of the information to criminally investigate or prosecute any alcohol or drug abuse patient.[facility] HospitalIn the event this information is protected by the Federal Confidentiality of Alcohol and Drug Abuse Patient Records regulations: The Federal rules restrict any use of the information to criminally investigate or prosecute any alcohol or drug abuse patient.[facility] HospitalIn the event this information is protected by the Federal Confidentiality of Alcohol and Drug Abuse Patient Records regulations: The Federal rules restrict any use of the information to criminally investigate or prosecute any alcohol or drug abuse patient.[facility] HospitalIn the event this information is protected by the Federal Confidentiality of Alcohol and Drug Abuse Patient Records regulations: The Federal rules restrict any use of the information to criminally investigate or prosecute any alcohol or drug abuse patient.[facility] HospitalIn the event this information is protected by the Federal Confidentiality of Alcohol and Drug Abuse Patient Records regulations: The Federal rules restrict any use of the information to criminally investigate or prosecute any alcohol or drug abuse patient.[facility] HospitalIn the event this information is protected by the Federal Confidentiality of Alcohol and Drug Abuse Patient Records regulations: The Federal rules restrict any use of the information to criminally investigate or prosecute any alcohol or drug abuse patient.[facility] HospitalIn the event this information is protected by the Federal Confidentiality of Alcohol and Drug Abuse Patient Records regulations: The Federal rules restrict any use of the information to criminally investigate or prosecute any alcohol or drug abuse patient.[facility] HospitalIn the event this information is protected by the Federal Confidentiality of Alcohol and Drug Abuse Patient Records regulations: The Federal rules restrict any use of the information to criminally investigate or prosecute any alcohol or drug abuse patient.[facility] HospitalIn the event this information is protected by the Federal Confidentiality of Alcohol and Drug Abuse Patient Records regulations: The Federal rules restrict any use of the information to criminally investigate or prosecute any alcohol or drug abuse patient.[facility] HospitalIn the event this information is protected by the Federal Confidentiality of Alcohol and Drug Abuse Patient Records regulations: The Federal rules restrict any use of the information to criminally investigate or prosecute any alcohol or drug abuse patient.[facility] the event this information is protected by the Federal Confidentiality of Alcohol and Drug Abuse Patient Records regulations: The Federal rules restrict any use of the information to criminally investigate or prosecute any alcohol or drug abuse patient.[facility] Hospital[facility] the event this information is protected by the Federal Confidentiality of Alcohol and Drug Abuse Patient Records regulations: The Federal rules restrict any use of the information to criminally investigate or prosecute any alcohol or drug abuse patient.[facility] the event this information is protected by the Federal Confidentiality of Alcohol and Drug Abuse Patient Records regulations: The Federal rules restrict any use of the information to criminally investigate or prosecute any alcohol or drug abuse patient.[facility] the event this information is protected by the Federal Confidentiality of Alcohol and Drug Abuse Patient Records regulations: The Federal rules restrict any use of the information to criminally investigate or prosecute any alcohol or drug abuse patient.[facility] the event this information is protected by the Federal Confidentiality of Alcohol and Drug Abuse Patient Records regulations: The Federal rules restrict any use of the information to criminally investigate or prosecute any alcohol or drug abuse patient.[facility] the event this information is protected by the Federal Confidentiality of Alcohol and Drug Abuse Patient Records regulations: The Federal rules restrict any use of the information to criminally investigate or prosecute any alcohol or drug abuse patient.[facility] the event this information is protected by the Federal Confidentiality of Alcohol and Drug Abuse Patient Records regulations: The Federal rules restrict any use of the information to criminally investigate or prosecute any alcohol or drug abuse patient.[facility] the event this information is protected by the Federal Confidentiality of Alcohol and Drug Abuse Patient Records regulations: The Federal rules restrict any use of the information to criminally investigate or prosecute any alcohol or drug abuse patient.[facility] the event this information is protected by the Federal Confidentiality of Alcohol and Drug Abuse Patient Records regulations: The Federal rules restrict any use of the information to criminally investigate or prosecute any alcohol or drug abuse patient.[facility] HospitalIn the event this information is protected by the Federal Confidentiality of Alcohol and Drug Abuse Patient Records regulations: The Federal rules restrict any use of the information to criminally investigate or prosecute any alcohol or drug abuse patient.[facility] HospitalIn the event this information is protected by the Federal Confidentiality of Alcohol and Drug Abuse Patient Records regulations: The Federal rules restrict any use of the information to criminally investigate or prosecute any alcohol or drug abuse patient.[facility] Reason for Visit (unrecogniz ed section and content) Reason Comments New Patient Consult for rectal m ass Reason Comments Patient Education Reason Onset Date Comments Patient Education Opened In Error 05/06/2022 Reason Comments Anal cancer New patient consult Specialty Diagnoses / Procedures Referred By Contac t Referred To Contact Oncology Diagnoses Anal cancer (HCC) Procedures CONSULT TO ONCOLOGY OFFICE/OUTPATIENT [facility] 60-[place] [address] [address] [place], [place] [id number] Referral ID Status Reason Start Date Expiration Date V isits Requested Visits Authorized [id number] Closed PCP Requested Referral 05/02/2022 05/02/2023 1 1 Reason Comments Consult Specialty Diagnoses / Procedures Referred By Contac t Referred To Contact Radiation Oncology Diagnoses Anal cancer (HCC) Procedures RAD/ONC CONSULT OFFICE/OUTPATIENT [facility] 60-[place] [address] [address] [facility] [address] [place] [id number] Referral ID Status Reason Start Date Expiration Date V isits Requested Visits Authorized [id number] Closed PCP Requested Referral 05/02/2022 05/02/2023 1 [...] Radiotherapy On-treatment Visit Reason Comments Medication Authorization Lidocaine/[place] cortisone Gel Reason Comments Art Therapy Reason Comments Anal cancer 1 week follow up Reason Comments Referral Information Cardiology Reason Comments anal cancer Weekly check Reason Comments Phlebotomy Reason Comments Rectal Cancer Reason Comments Care Coordination Letter Request Reason Comments Anal cancer Follow up after scan s Specialty Diagnoses / Procedures Referred By Contac t Referred To Contact MR IMAGING Diagnoses Malignant neoplasm of anus (HCC) Procedures MRI RECTUM WO/W IVCON MRI PELVIS W/O & W/CONTRAST MATERIAL Toribio Michaud MD [address] [place] [address] Mr Imaging Referral ID Status Reason Start Date Expiration Date V isits Requested Visits Authorized [id number] Closed Auto-Generate d Referral 09/22/2022 10/22/2022 1 1 Reason Comments Anal Cancer 1 month follow up Reason Comments Anal cancer Reason Comments Established Patient 3 month follow up , anal cancer surveillance Reason Comments Patient Question Reason Comments Results Reason Comments Anal Cancer 6 month follow up Reason Comments Appointment Reason Comments Orders Specialty Diagnoses / Procedures [facility] MR IMAGING Diagnoses Malignant neoplasm of anus (HCC) Procedures MRI RECTUM WO/W IVCON MRI PELVIS W/O & W/CONTRAST MATERIAL Toribio Michaud MD [address] [place] [address] [place] [address] Referral ID Status Reason Start Date Expiration Date V isits Requested Visits Authorized [id number] Closed Auto-Generate d Referral 09/16/2023 10/16/2023 1 1 Specialty Diagnoses / Procedures [facility] To Contact MR IMAGING Diagnoses Malignant neoplasm of anus (HCC) Procedures MRI ABDOMEN WO/W IVCON MRI ABDOMEN W/O & W/CONTRAST MATERIAL Toribio Michaud MD [address] [place] [address] [place] [address] Referral ID Status Reason Start Date Expiration Date V isits Requested Visits Authorized [id number] Closed Auto-Generate d Referral 09/16/2023 10/16/2023 1 1 Reason Comments Anal Cancer Follow up Reason Comments Follow Up Anal cancer surveill ance Reason Comments Post Radiation Treatment Follow Up Reason Comments Established Patient presents today for e valuation of diarrhea and anal itching. Reason Comments Radiology NM Specialty Diagnoses / Procedures [facility] Referred To Contact Radiology / CT IMAGING Diagnoses Malignant neoplasm of anus (HCC) Procedures CT CHEST WO IVCON DIAGNOSTIC COMPUTED TOMOGRAPHY THORAX W/O CNTRST Toribio Michaud MD [address] [place] [address] Toribio Michaud MD [address] [place] [address] [place] [address] Referral ID Status Reason Start Date Expiration Date V isits Requested Visits Authorized [id number] Denied Auto-Generat ed Referral Patient Cleared - Admin/Chairm an/Director advise to proceed or did not respond 09/18/2023 10/18/2023 [address] Specialty Diagnoses / Procedures Referred By Contac t Referred To Contact CT IMAGING Diagnoses Anal cancer (HCC) Procedures CT CHEST W IVCON DIAGNOSTIC COMPUTED TOMOGRAPHY THORAX W/CONTRAST Paco Bonds MD [address] [place] [address] [place] [address] Referral ID Status Reason Start Date Expiration Date V isits Requested Visits Authorized [id number] Closed Auto-Generate d Referral 08/10/2022 09/09/2022 1 1 Specialty Diagnoses / Procedures Referred By Contac t Referred To Contact Radiation Oncology / RADIATION ONCOLOGY Diagnoses Malignant neoplasm of anus, unspecified IMRT 28 FX Plus sim Procedures SIMULATION CHITRA SIM REQ INCOMPLETE IMRT 28 FX Plus sim Toribio Michaud MD [address] [place] [address] Toribio Michaud MD [address] [place] [address] Referral ID Status Reason Start Date Expiration Date Visits Re quested Visits Authorized [id number] Closed 05/27/2022 07/13/2022 99 99 Specialty Diagnoses / Procedures Referred By Contac t Referred To Contact CT IMAGING Diagnoses Anal cancer (HCC) Procedures CT CHEST W IVCON DIAGNOSTIC COMPUTED TOMOGRAPHY THORAX [place] [address] [place] [address] [place] [address] Referral ID Status Reason Start Date Expiration Date V isits Requested Visits Authorized [id number] Closed Auto-Generate d Referral 05/07/2022 06/06/2022 1 1 INFORMATION SOURCE (unrecogn ized section and content) DATE CREATED AUTHOR 05/06/2022 [facility] DATE CREATED AUTHOR AUTHOR'S ORGANIZ ATION 07/15/2022 [facility] DATE CREATED AUTHOR AUTHOR'S ORGANIZ ATION 09/05/2022 Garrett Kenney [facility] DATE CREATED AUTHOR AUTHOR'S ORGANIZ ATION 10/16/2022 [facility] DATE CREATED AUTHOR AUTHOR'S ORGANIZ ATION 09/29/2023 [facility] DATE CREATED AUTHOR AUTHOR'S ORGANIZ ATION 01/07/2024 [facility] EPIC DATE CREATED AUTHOR AUTHOR'S ORGANIZ ATION 05/31/2024 [facility] FOR RECORDS PERTAINING TO PATIENTS WHO ARE [...] BE BASED ON THE PRIMARY CLINICAL RECORDS. [facility] [employer] [facility]. provides no warranty or guarantee of the accuracy or completeness of information in this document.
--- NOTE | 2024-10-22 07:39 | MM_ITS ---
Patient Name: KIRT REYNA MR#: [id number] : 1970 Exam Date: 10/22/2024 Ordering Doctor: DR Pérez Hubbard . RADIOLOGY REPORT PROCEDURE: MM TOMOSYNTHESIS SCREENING BI COMPARISON: MM TOMOSYNTHESIS DIAGNOSTIC BI, 10/22/2023. MM DIAGNOSTIC MAMMO UNILAT LT, 04/30/2023. MM TOMOSYNTHESIS SCREENING BI, 04/08/2023. MG MAMM SCREEN CARL W CAD, 07/29/2017. INDICATIONS: Screening Calculator Name NCI Breast Cancer Risk Assessment Tool 5 Year Breast Cancer Risk 1.30% Lifetime Breast Cancer Risk 9.10% Personal Breast Cancer No Personal Ovarian Cancer No Treatments None Family Cancers None LOCATION: [facility] BREAST COMPOSITION: The breasts are extremely dense, which lowers the sensitivity of mammography. FINDINGS: RIGHT BREAST: No significant suspicious finding. LEFT BREAST: No significant suspicious finding. DIAGNOSTIC CATEGORY 1--NEGATIVE. RECOMMENDATIONS: ROUTINE MAMMOGRAM AND CLINICAL EVALUATION IN 12 MONTHS. PLEASE NOTE: A NORMAL MAMMOGRAM DOES NOT EXCLUDE THE POSSIBILITY OF BREAST CANCER. A CLINICALLY SUSPICIOUS PALPABLE LUMP SHOULD BE BIOPSIED. Dictated by: Morteza Orellana DO on 10/22/2024 at 12:17 Approved by: Morteza Orellana DO on 10/22/2024 at 12:25
== END 2024-10-22 07:35 | disposition home or self-care (01) ==
LOC: MAMMO 07:34
PROVIDERS: PCP Family Medicine; Visit Provider Obstetrics & Gynecology
DX: Z12.31 Encounter for screening mammogram for malignant neoplasm of breast (principal)
CPT/HCPCS: 77063; 77067

== ENCOUNTER 2025-01-10 20:29 | Outpatient (REF) | payer OTHER, SELFPAY ==
--- OUTSIDE RECORDS SUMMARY | 2023-12-26 07:30 | XMS_ITS ---
Author Organization The [facility] in [place] Address [address] [place] [address] Care Team Providers Care Substitute Nurse Name Role Phone Joshua Liu Primary Care Provider [phone] SONDRA LIU Unavailable [phone] Allergies Allergen (clinical drug ingredient) Drug/Non Drug [...] Status W/U Status Risk Notes Problem Diverticulitis (78436863) Diverticulitis (K57.92) Active confirmed Vital Signs Weight 177.4 lbs 12/26/2023 Height 66 in 12/26/2023 Blood pressure systolic 116 mm Hg 12/26/19 Blood pressure diastolic 72 mm Hg 024 Temperature 97.7 degrees Fahrenheit 12/26/19 BMI 28.63 kg/m2 12/26/2023 Encounters Encounter Location Date Provider Diagnosis [facility] [address] [facility] [address] [facility] [place] [address] 12/26/2023 SONDRA HOY Diverticulitis K57.9 2 Assessments [...] * Cherie REYNA ADOB:1970 (53 yo F)Acc No.[id number]:12/26/2023 Progress Note Patient: Cherie BARRAGAN Provider: Halina Liu M.D. :1970 A ge:53 Y S ex:Female Date:12/26/2023 Address:[address] [place], [place] [id number] Check In:11:32 AM ESTCheck O ut:12:03 PM [...] Procedure Codes: * Preventive Medicine: Screenings/Counseling: B [place] ACTION PLAN Above Normal BMI Follow-up D ietary management education, guidance, and counseling * * Sign off status: Completed Visit Status: C HK (Check Out) true * Provider: Halina Liu M.D. Date: 0 12/26/2023 Generated for Larisa ibarra/Jaleel/eTransmitting on: 01/10/2025 01:54 PM EDT History and Physical Notes * Examination Category Sub-Category Detail Notes Category Not es Abdomen Exam: LLQ tenderness with Rebound tenderness
--- OUTSIDE RECORDS SUMMARY | 2024-04-12 13:30 | XMS_ITS ---
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 Role Phone Joshua Scales Primary Care [...] Provider Diagnosis [facility] [address] [place] [address] 04/12/2024 Joshua Scales Right upper quadrant abdominal pain R10.11 Assessments Encounter Date Diagnosis (ICD Code) Assessment Notes Treatment Notes Treatment Clinical Notes Section Notes 04/12/2024 Right upper quadrant abdominal pain (ICD-10 - R10.11) Plan Of Treatment Pending Test Test Name Order Date CT ABD and PELV W CON 04/12/2024 Progress Notes * Cherie REYNA ADOB:1970 (54 yo F)Acc No.[id number]:04/12/2024 Progress Note Patient: Cherie BARRAGAN Provider: Halina Scales ([facility])MD :1970 A ge:54 Y S ex:Female Date:04/12/2024 Address:[address] [place] [address] , [place], [id number] Check In:05:25 PM ESTCheck O ut:06:12 PM [...] * Treatment: * Preventive Medicine: Screenings/Counseling: B [place] ACTION PLAN Above Normal BMI Follow-up D ietary management education, guidance, and counseling * * Sign off status: Completed Visit Status: C HK (Check Out) true * Provider: Halina Scales ([facility])MD Date: 04/12/2024 Generated for Printi fred/Jaleel/eTransmitting on: 01/10/2025 08:33 PM EDT History and Physical Notes * HPI [...]
--- OUTSIDE RECORDS SUMMARY | 2024-05-31 13:00 | XMS_ITS ---
Author Organization [facility] in [place] Address [address] [place] [address] Care Team Providers Care Framer Name Role Phone Joshua Scales Primary Care Provider Allergies Allergen (clinical drug ingredient) Drug/Non Drug Allergy documented on EMR Reaction Allergy Type Onset Date Status amoxicillin Amoxicillin hives Drug Allergy Act ezra Substance with sulfonamide structure and antibacterial mechanism of action (substance) Sulfa Antibiotics hives Drug Allergy Active REASON FOR VISIT talk/fill out about paperwork for work Medications Medication SIG (Take, Route, Frequency, Duration) Notes Start Date End Date Status Fludrocortisone Acetate 0.1 MG TAKE 1/2 TABLET BY MOUTH TWICE DAILY FOR 30 DAYS for 30 Active Calcium 600 MG 1 tablet with meals Orally once daily Active Vitamin D (Cholecalciferol) 50 MCG (1999 UT) 1 capsule Orally Once a day Active Multivitamin Active Social History Tobacco Use: Social History Observation Description Date Details (start date - stop date) Never Smoker NA - NA Tobacco Use/Smoking Question Answer Notes Patient is a nonsmoker Problems Problem Type SNOMED Code ICD Code Onset Dates Problem Status W/U Status Risk Notes Problem Lumbar radiculopathy (954924146) Lumbar radiculopathy (M54.16) Active confirmed Vital Signs Weight 181 lbs 05/31/2024 Height 66 in 05/31/2024 Blood pressure systolic 116 mm Hg 05/31/20 24 Blood pressure diastolic 68 mm Hg 024 BMI 29.21 kg/m2 05/31/2024 Encounters Encounter Location Date Provider Diagnosis [facility] Medicine [address] [facility] [place] [address] 05/31/2024 Joshua Scales Lumbar radiculopathy M54.16 Assessments Encounter Date Diagnosis (ICD Code) Assessment Notes Treatment Notes Treatment Clinical Notes Section Notes 05/31/2024 Lumbar radiculopathy (ICD-10 - M54.16) PPW completed Plan Of Treatment Treatment Notes Assessment Notes Lumbar radiculopathy PPW completed Progress Notes * Cherie REYNA ADOB:1970 (54 yo F)Acc No.[id number]:05/31/2024 Progress Note Patient: Cherie BARRAGAN Provider: Halina Scales ([facility])MD :1970 A ge:54 Y S ex:Female Date:05/31/2024 Address:[address] [place], [place] [phone] Check In:04:57 PM ESTCheck O ut:05:57 PM EST Subjective: * Chief Complaints: * T alk/fill out about paperwork for work * HPI: G eneral: Need jopb function adjusted for 2 persona ssis - with lifting. * ROS: E ENT: hearing changes d [...] Modified On:03/20/2023U Status:confirmed Z00.00 Well adult Modified On:03/24/2023U Status:confirmed N60.19 Diffuse cystic masto lisa of unspecified breast Modified On:05/01/2023U Status:confirmed M89.319 Clavicle enlargement Modified On:08/18/2023U Status:confirmed K57.92 Diverticulitis Modified On:12/26/2023U Status:confirmed R10.11 Right upper quadrant abdominal pain Modified On:04/12/2024W/U Status:confirmed M54.16 Lumbar radiculopathy Modified On:05/31/2024W/U Status:confirmed * Medical History: * Surgical History: E GD- Esophageal Dilation and Bx 12/16/2018Ovarian Cyst Removal * Hospitalization/Major Diagno stic Procedure: N o Hospitalization History. * Family History: F ather: 78 yrs, Parkinsons, diagnosed with Diabetes mellitus without mention of complication, type II or unspecified type, not stated as uncontrolled. M other: alive. S on(s): alive, asthma. D aughter(s): alive. 1 son(s) , 1 daughter(s) . . * Social History: T obacco Use: T obacco Use/Smoking P atient is a n onsmoker * Medications: T akingCalcium 600 MG Tablet 1 tablet with meals Orally once daily Fludrocortisone Acetate 0.1 MG Tablet TAKE 1/2 TABLET BY MOUTH TWICE DAILY FOR 30 DAYS Multivitamin Vitamin D (Cholecalciferol) 50 MCG (1999 UT) Capsule 1 capsule Orally Once a day Medication List reviewed and reconciled with the patientTaking Calcium 600 MG Tablet 1 tablet with meals Orally once daily Taking Fludrocortisone Acetate 0.1 MG Tablet TAKE 1/2 TABLET BY MOUTH TWICE DAILY FOR 30 DAYS Taking Multivitamin Taking Vitamin D (Cholecalciferol) 50 MCG (1999 UT) Capsule 1 capsule Orally Once a day Medication List reviewed and reconciled with the patient * Allergies: S ulfa Antibiotics: hives - AllergyAmoxicillin: hives - Allergyno[Allergies Verified] Objective: * Vitals: W t:181lbs, Ht: 66 in, BP:116/68mm Hg, BMI:29.21Index, Ht-cm: 167.64 cm, Wt-k.1 kg. [...] refill. ABDOMEN: s oft, non-distended, non-tender, no masses. MUSCULOSKELETAL: n o deformity or scoliosis noted, [...] mood and affect. Assessment: * Assessment: 1. L umbar radiculopathy - M54.16 (Primary) Plan: * Treatment: * Procedure Codes: * * Sign off status: Completed Visit Status: C HK (Check Out) true * Provider: Halina Scales ([facility])MD Date: 07/31/2023 Generated for Printi ng/Faxing/eTransmitting on: 0 01/10/2025 01:54 PM EDT History and Physical Notes * HPI (History of Present Illness) Category Sub-Category Detail Notes Category Not es General Need jopb funct ion adjusted for 2 persona ssis - with lifting Examination Category Sub-Category Detail Notes Category Not [...] ill ABDOMEN: soft, non-distended, non-tender, no masses RECTAL: MUSCULOSKELETAL: no deformity or scol iosis [...]
--- OUTSIDE RECORDS SUMMARY | 2025-01-10 11:00 | XMS_ITS | Encounter Summary ---
Author Organization [facility] Address [address] [facility] [place] [address] Care Team Providers Care Pony Roll Finisher Name Role Phone Valente Scales MD Primary Care Provider [phone] Reason for Visit * Reason Comments Well Women Visit Encounter Details Date Type Department Care Team (Late Contact Info) Description 01/10/2025 11:00 AM EDT Office Visit [facility] [address] [place] [phone] Pérez Hubbard, DO [address] [place] [address] Well woman exam with routine gynecological exam; Encounter for screening mammogram for malignant neoplasm of breast; Postmenopausal state Social History Tobacco Use Types Packs/Day Years Used Date Smoking Tobacco: Never Smokeless Tobacco: Never Tobacco Cessation:Counseling Given: Not Answered Alcohol Use Standard Drinks/Week Comments Not Currently 0 (1 standard drink = 0.6 oz pur e alcohol) Comments No Sex and Gender Information Value Date Recorded Sex Assigned at Not on file Legal Sex Female 6:56 PM EDT Gender Identity Not on file Sexual Orientation Not on file documented as of this encounter Last Filed Vital Signs Vital Sign Reading Time Taken Comments Blood Pressure 120/72 01/10/2025 11:26 AM EDT Pulse - - Temperature - - Respiratory Rate - - Oxygen Saturation - - Inhaled Oxygen Concentration - - Weight 82.1 kg (181 lb) 01/10/2025 11:26 AM EDT Height - - Body Mass Index - - documented in this encounter Progress Notes * Shannen Sheppard, FLIGHT OPERATIONS INSPECTOR - 01/10/2025 11:00 AM EDT Reason for Appointment: Patient ID: Cherie Martinez is a 54 y.o. female who presents for Well Women Visit Patient presents today for Annual Exam. MEDICATIONS Current Outpatient Medications Medication Instructions calcium carbonate (Super Calcium) 1500 (600 Ca) MG tablet Every 24 hours cholecalciferol (Vitamin D-3) 50 MCG (1999) capsule 1 capsule, Every 24 hours fludrocortisone (Florinef) 0.1 MG tablet Take 0.5 tablets every day by oral route. 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 Menopause ovarian failure June of 2022 Molar (HHS-HCC) Ovarian cyst HISTORY PAST MEDICAL HISTORY SOCIAL HISTORY Past Medical History: Diagnosis Date Cancer (HCC) History of colon cancer 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 HENT: Negative. Eyes: Negative. Respiratory: Negative. Cardiovascular: Negative. Gastrointestinal: Negative. Genitourinary: Negative. Musculoskeletal: Negative. Skin: Negative. Neurological: Negative. All other systems reviewed and are negative. Hematological: Negative. Endocrine: Negative. Allergic/Immunologic: Negative. OBJECTIVE Objective: Physical Exam Constitutional: Appearance: Normal appearance. She is well-developed. Genitourinary: Vulva normal. Cardiovascular: Rate and Rhythm: Normal rate and regular rhythm. Pulmonary: Effort: Pulmonary effort is normal. Breath sounds: Normal breath sounds. Abdominal: General: Bowel sounds are normal. There is no distension. Palpations: Abdomen is soft. Tenderness: There is no abdominal tenderness. There is no guarding or rebound. Musculoskeletal: General: No swelling. Normal range of motion. Right lower leg: No edema. Left lower leg: No edema. Neurological: Mental Status: She is alert and oriented to person, place, and time. Skin: General: Skin is warm and dry. Psychiatric: Mood and Affect: Mood normal. Behavior: Behavior normal. Vitals and nursing note reviewed. Exam conducted with a curtain cutter present. Vitals: There is no height or weight on file to calculate BMI. BP: 120/72 No LMP recorded (lmp unknown). Patient is postmenopausal. ASSESSMENT & PLAN ICD-10-CM 1. Well woman exam with routine gynecological exam Z01.419 THIN PREP TIS PAP AND HR HPV DNA 2. Encounter for screening mammogram for malignant neoplasm of breast Z12.31 3. Postmenopausal state Z78.0 DEXA bone density Orders Placed This Encounter Procedures DEXA bone density Annual Wellness Exam: Patient presents today for routine annual exam. Patient states she has no current complaints. Patients vitals were reviewed and within normal limits. Growth and development is noted to be appropriate for age. No mental health concerns was expressed. Pap Smear: Speculum was inserted into the vagina and pap was obtained without difficulty. HPV testing was performed per age guideline. Patient was advised that pap results could take anywhere from 7 to 10 days to receive and our office will reach out to the patient with those once we have them. Patient can also view results via [employer]. I reinforced importance of condom use for STI prevention. Patient declined cultures to be performed with today's visit. Breast Exam: Upon examination, clinical breast exam was noted to be normal and screening mammogram was ordered and given to patient to have obtained. Patient was counseled on breast self-awareness, including the importance of knowing what is normal for her own breasts and promptly reporting any changes such as new lumps, skin dimpling, nipple discharge, or pain. Screening mammogram was recommended annually. Discussed signs and symptoms of breast cancer and when to seek medical attention. Answered all patient questions. Mammogram was negative in October. DEXA Counseling: DEXA scan ordered and given to the patient to have performed for osteoporosis screening per guidelines. Patient counseled on bone health, including the importance of calcium and vitamin D intake, weight-bearing exercise, fall prevention, and avoiding tobacco and excessive alcohol. Discussed purposeof DEXA in assessing fracture risk and monitoring bone density. Patient advised results will be reviewed upon completion and next steps discussed as needed. Follow Up: Patient is to return to our office in one year for annual exam unless needed otherwise. Documented by Shannen Sheppard LPN on behalf of: Pérez Hubbard DO documented in this encounter Plan of Treatment Upcoming Encounters Date Type Department Care Team (Late st Contact Info) Description 01/16/2026 10:00 AM EDT Office Visit [facility] [address] [place] [place] [address] [place] [id number] Pérez Hubbard DO [address] [place], [place] [id number] Scheduled Orders Name Type Priority Associated Diagnoses Orde r Schedule DEXA bone density Imaging Routine Postmenopausal state Expected: 01/10/2025 (Approximate), Expires: 01/10/2026 THIN PREP TIS PAP AND HR HPV DNA Pathology and Cytology Routine Well woman exam with routine gynecological exam Ordered: 01/10/2025 documented as of this encounter Visit Diagnoses Diagnosis Well woman exam with routine gynecological exam Routine gynecological examination Encounter for screening mammogram for malignant neoplasm of breast Postmenopausal state Asymptomatic postmenopausal status (age-related) (natural) documented in this encounter Care Teams Pony Roll Finisher Relationship Specialty Start Date End Date Valente Scales MD [address] [facility] [place] [address] PCP - General Family Medicine 01/06/24 documented as of this encounter
--- OUTSIDE RECORDS SUMMARY | 2025-01-10 20:33 | XMS_ITS | Encounter Summary ---
Author Organization [facility] Address [address] [facility] [place] [address] Care Team Providers Care Gas Mask Assembler Name Role Phone Valente Scales MD Primary Care Provider [phone] Encounter Details Date Type Department Care Team (Latest Contact Info) Description 01/06/2025 Travel Social History Tobacco Use Types Packs/Day Years Used Date Smoking Tobacco: Never Assessed Comments No Sex and Gender Information Value Date Recorded Sex Assigned at Not on file Legal Sex Female 6:56 PM EDT Gender Identity Not on file Sexual Orientation Not on file documented as of this encounter Plan of Treatment Upcoming Encounters Date Type Department Care Team (Late st Contact Info) Description 01/16/2026 10:00 AM EDT Office Visit [facility] [address] [place] [place] [phone] Pérez Hubbard DO [address] [place] [address] documented as of this encounter Visit Diagnoses Not on filedocumented in this encounter Care Teams Gas Mask Assembler Relationship Specialty Start Date End Date Valente Scales MD [address] [place] [address] PCP - General Family Medicine 01/06/24 documented as of this encounter
--- OUTSIDE RECORDS SUMMARY | 2025-01-10 20:33 | XMS_ITS | Clinical Summary ---
Author Organization [facility] Address [address] [facility] [place] [address] Care Team Providers Care Bank Courier Name Role Phone Valente Scales MD Primary Care Provider [phone] Allergies Active Allergy Reactions Criticality Noted Date Comments Amoxicillin Hives 01/06/2024 Penicillin G 08/23/2013 Other Reaction(s): Unknown Penicillins Unknown 01/06/2024 Sulfa Antibiotics Hives,Unknown 08/23/2013 Other Reaction(s): Unknown Medications cholecalciferol (Vitamin D-3) 50 MCG (1999 UT) capsule 1 capsule 1 (one) time each day at the same time Active calcium carbonate (Super Calcium) 1500 (600 Ca) MG tablet 1 (one) time each day at the same time Active Pediatric Multivitamins-F l (MultiVitamin + Fluoride) 0.25 MG chewable tablet Multivitamin A ctive fludrocortisone (Florinef) 0.1 MG tablet Take 0.5 tablets every day by oral route. Active Encounters Date Type Department Care Team Description 01/10/2025 11:00 AM EDT Office Visit [facility] [address] [place] [place] [address] Pérez Hubbard DO Well woman exam with routine gynecological exam; Encounter for screening mammogram for malignant neoplasm of breast; Postmenopausal state 01/10/2025 Bamboo flowsheet [facility] [address] [place] [address] Pérez Hubbard DO 01/06/2025 Travel 01/03/2025 Orders Only [facility] [address] [facility] [address] [place] [address] [place] [phone] Melba Beth LPN 10/22/2024 Clinisync Result Encounter [facility] External Department Unsolicited Pérez Hubbard DO from Last 3 Months Family History Medical History Relation Name Comments Diabetes Father Richi Elmer Cancer Father's Brother 1 Uncle Peng Cancer Father's Brother 2 Uncle Peng Relation Name Status Comments Father Richi Elmer Alive Father's Brother 1 Uncle Peng Alive Father's Brother 2 Uncle Peng Alive Social History Tobacco Use Types Packs/Day Years [...] on file Sexual Orientation Not on file Last Filed Vital Signs Vital Sign Reading Time Taken Comments Blood Pressure 120/72 01/10/2025 11:26 AM EDT Pulse - - Temperature - - Respiratory Rate - - Oxygen Saturation - - Inhaled Oxygen Concentration - - Weight 82.1 kg (181 lb) 01/10/2025 11:26 AM EDT Height - - Body Mass Index - - Plan of Treatment Upcoming Encounters Date Type Department Care Team (Late st Contact Info) Description 01/16/2026 10:00 AM EDT Office Visit [facility] [address] [facility] [place] [phone] Pérez Hubbard DO [address] [place], [place] [address] [address] Procedures Procedure Name Priority Date/Time Associated Diagnosis Comments MM TOMOSYNTHESIS SCREENING BI 10/22/2024 12:25 PM EDT from Last 3 Months Results * MM TOMOSYNTHESIS SCREENING BI (10/22/2024 12:25 PM EDT) Anatomical Region Laterality Modality Other 10/22/2024 12:2 5 PM EDT Narrative 10/22/2024 12:26 [place] [address] Mammography Report Signed Patient: KIRT REYNA MR#: [id number] : 1970 Acct:[id number] Age/Sex: 54 / F ADM Date: 10/22/24 Loc: MAMMO Attending Dr: Pérez Hubbard D.O. Ordering Physician: Pérez Hubbard D.O. Results: Date of Service: 10/22/24 Follow Up: Procedure(s): MM tomosynthesis screening BI Accession Number(s): [id number] cc: Pérez Hubbard D.O.; Valente Scales M.D. Patient Name: KIRT REYNA MR#: [id number] : 1970 Exam Date: 10/22/2024 Ordering Doctor: DR Pérez Hubbard . RADIOLOGY REPORT PROCEDURE: MM TOMOSYNTHESIS SCREENING BI COMPARISON: MM TOMOSYNTHESIS DIAGNOSTIC BI, 10/22/2023. MM DIAGNOSTIC MAMMO UNILAT LT, 04/30/2023. MM TOMOSYNTHESIS SCREENING BI, 04/08/2023. MG MAMM SCREEN CARL W CAD, 07/29/2017. INDICATIONS: Screening Calculator Name NCI Breast Cancer Risk Assessment Tool 5 Year Breast Cancer Risk 1.30% Lifetime Breast Cancer Risk 9.10% Personal Breast Cancer No Personal Ovarian Cancer No Treatments None Family Cancers None LOCATION: [facility] BREAST COMPOSITION: The breasts are extremely dense, which lowers the sensitivity of mammography. FINDINGS: RIGHT BREAST: No significant suspicious finding. LEFT BREAST: No significant suspicious finding. DIAGNOSTIC CATEGORY 1--NEGATIVE. RECOMMENDATIONS: ROUTINE MAMMOGRAM AND CLINICAL EVALUATION IN 12 MONTHS. PLEASE NOTE: A NORMAL MAMMOGRAM DOES NOT EXCLUDE THE POSSIBILITY OF BREAST CANCER. A CLINICALLY SUSPICIOUS PALPABLE LUMP SHOULD BE BIOPSIED. Dictated by: Morteza Orellana DO on 10/22/2024 at 12:17 Approved by: Morteza Orellana DO on 10/22/2024 at 12:25 Dictated By: Morteza Orellana D.O. Signed By: 10/22/24 1226 DD/ 1225 TD/TT: Touch Up Painter: Procedure Note Radiology, Radiologist, MD - 10/22/2024 [place] [address] Mammography Report Signed Patient: KIRT REYNA AMR#: [id number] : 1970Acct:[id number] Age/Sex: 54 / FADM Date: 10/22/24 Loc: MAMMO Attending Dr: Pérez Hubbard D.O. Ordering Physician: Pérez Hubbard D.O.Results: Date of Service: 10/22/24Follow Up: Procedure(s): MM tomosynthesis screening BI Accession Number(s): [id number] cc: Pérez Hubbard D.O.; Valente Scales M.D. Patient Name: KIRT REYNA MR#: [id number] : 1970 Exam Date: 10/22/2024 Ordering Doctor: DR Pérez Hubbard . RADIOLOGY REPORT PROCEDURE: MM TOMOSYNTHESIS SCREENING BI COMPARISON: MM TOMOSYNTHESIS DIAGNOSTIC BI, 10/22/2023. MM DIAGNOSTIC MAMMO UNILAT LT, 04/30/2023. MM TOMOSYNTHESIS SCREENING BI, 04/08/2023.MG MAMM SCREEN CARL W CAD, 07/29/2017. INDICATIONS: Screening Calculator Name NCI Breast Cancer Risk Assessment Tool 5 Year Breast Cancer Risk 1.30% Lifetime Breast Cancer Risk 9.10% Personal Breast Cancer No Personal Ovarian Cancer No Treatments None Family Cancers None LOCATION: [facility] BREAST COMPOSITION: The breasts are extremely dense, which lowers the sensitivity of mammography. FINDINGS: RIGHT BREAST: No significant suspicious finding. LEFT BREAST: No significant suspicious finding. DIAGNOSTIC CATEGORY 1--NEGATIVE. RECOMMENDATIONS: ROUTINE MAMMOGRAM AND CLINICAL EVALUATION IN 12 MONTHS. PLEASE NOTE: A NORMAL MAMMOGRAM DOES NOT EXCLUDE THE POSSIBILITY OFBREAST CANCER. A CLINICALLY SUSPICIOUS PALPABLE LUMP SHOULD BE BIOPSIED. Dictated by: Morteza Orellana DO on 10/22/2024 at 12:17 Approved by: Morteza Orellana DO on 10/22/2024 at 12:25 Dictated By: Morteza Orellana D.O. Signed By:10/22/24 1226 DD/ 1225 TD/TT: Touch Up Painter: Pérez Hubbard DO [facility] Final Result from Last 3 Months Insurance [employer] Care Teams Bank Courier Relationship Specialty Start Date End Date Valente Scales MD [address] [place] [phone] PCP - General Family Medicine 01/06/24
--- OUTSIDE RECORDS SUMMARY | 2025-01-10 20:33 | XMS_ITS | Encounter Summary ---
Author Organization [facility] Address [address] [place] [address] Care Team Providers Care Fitter'S Assistant Name Role Phone Valente Scales MD Primary Care Provider + Paco Vivas MD Unavailable [phone] Josette Varma SENIOR ELECTRONICS DESIGN ENGINEER.COFFEE TASTER Unavailable [phone] Leandra Whitehead RN Unavailable [phone] Toribio Mccall MD Unavailable Source Comments In the event this information is protected by the Federal Confidentiality of Alcohol and Drug AbusePatient Records regulations: The Federal rules restrict any use of the information to criminally investigate or prosecute any alcohol or drug abuse patient.[facility] Encounter Details Date Type Department Care Team (Late st Contact Info) Description 01/19/2023 Get Medical Advice Colorectal Surgery [address] [place], [place] [phone] [place] [address] [place], [place] [phone] Questions I forgot to ask at visit Social History Tobacco Use Types Packs/Day Years Used Date Smoking Tobacco: Never Passive Smoke Exposure: Never Smokeless Tobacco: Never Alcohol Use Standard Drinks/Week Comments No 0 (1 standard drink = 0.6 oz pur e alcohol) PHQ-2 Answer Date Recorded PHQ-2 score 1 05/27/2022 Area Deprivation Index Answer Date Roshan rded National Score (1-100), lower number is lower ri sk 63 01/16/2023 State Score (1-10), lower number is lower risk 4 01/16/2023 Data from: https://www.neighborhoodatlas.medicine.[facility]/. 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 Not on file Not on file Not on file documented as of this encounter Plan of Treatment Upcoming Encounters Date Type Department Care Team (Latest Contact Info) Description 04/22/2025 1:45 PM EDT Office Visit [facility] [address] [place] [address] 6 month follow up and lab 04/22/2025 2:00 PM EDT Visit (SP) Office Hematology/Oncology [address] [facility] [address] Paco Vivas MD [address] [place] [address] 6 month follow up and lab 06/10/2025 3:00 PM EST Office Visit Colorectal Surgery [address] [place] [address] Jeanette Wang, SENIOR ELECTRONICS DESIGN ENGINEER.COFFEE TASTER [address] [address] [place], [place] [id number] 6 [address] up per [address]. Collins 10/27/2025 2:15 PM EDT Appointment Radiology Pet CT [address] [facility] [address] CT chest/abdom w/IVC 11/03/2025 10:20 AM EDT Appointment [facility] [place] [address] [address] MRI Rectum W/ & W/O IVC 11/11/2025 2:30 PM EDT Office Visit Radiation Oncology [address] [place] [address] Toribio Mccall MD [address] [place] [address] 1 year follow up documented as of this encounter Visit Diagnoses Not on filedocumented in this encounter Care Teams Fitter'S Assistant Relationship Specialty Start Date End Date Valente Scales MD PCP - General Family Medicine 08/17/13 Paco Vivas MD [address] [place] [address] [place] [address] Physician Hematology/Oncology 05/23/22 Josette Varma, ABIGAIL.COFFEE TASTER [address] [place] [address] [place] [address] Nurse Practitioner Hematology/Oncology 05/23/22 Leandra Whitehead, BLAIR [address] [place] [address] Specialty Nursing Support Worker Hematology/Oncology 05/23/22 05/14/23 Toribio Mccall MD [address] [place] [address] [place] [address] Physician Radiation Oncology 05/23/22 documented as of this encounter
--- OUTSIDE RECORDS SUMMARY | 2025-01-10 20:33 | XMS_ITS | Encounter Summary ---
Author Organization [facility] Address [address] [facility] [place] [address] Care Team Providers Care Multimedia Assistant Name Role Phone Valente Scales MD Primary Care Provider [phone] Encounter Details Date Type Department Care Team (Late Contact Info) Description 01/09/2024 Abstract [facility] [address] [place] [place] [phone] Melba Beth LPN [address] [employer] [facility] [place] [address] Social History Tobacco Use Types Packs/Day Years [...] EDT Office Visit [facility] [address] [place] [place] [phone] Pérez Hubbard DO [address] [place], [place] [address] documented as of this encounter Visit Diagnoses Not on filedocumented in this encounter Care Teams Multimedia Assistant Relationship Specialty Start Date End Date Valente Scales MD [address] [place] [address] PCP - General Family Medicine 01/06/24 documented as of this encounter
--- OUTSIDE RECORDS SUMMARY | 2025-01-10 20:33 | XMS_ITS | Encounter Summary ---
Author Organization [facility] Address [address] [facility] [place] [address] Care Team Providers Care Manager Room Name Role Phone Valente Scales MD Primary Care Provider [phone] Encounter Details Date Type Department Care Team (Late st Contact Info) Description 01/03/2025 Orders Only [facility] [address] [employer] [place] [address] [place] [phone] Melba Beth LPN [address] [employer] [facility] [place] [address] Social History Tobacco Use Types Packs/Day Years [...] EDT Office Visit [facility] [address] [place] [address] [place] [phone] Pérez Hubbard DO [address] [place] [address] documented as of this encounter Procedures Procedure Name Priority Date/Time Associated Diagnosis Comments PAP SMEAR Routine 01/06/2024 12:00 AM EDT documented in this encounter Results * (ABNORMAL) Pap Smear (01/06/2024 12:00 AM EDT) Swab Cervical swab / Unknown Stevie Nurse [facility] LAB CYTOLOGY ORDERABLES Final Result EXTERNAL LAB documented in this encounter Visit Diagnoses Not on filedocumented in this encounter Care Teams Manager Room Relationship Specialty Start Date End Date Valente Scales MD [address] [place] [address] PCP - General Family Medicine 01/06/24 documented as of this encounter
--- OUTSIDE RECORDS SUMMARY | 2025-01-10 20:33 | XMS_ITS | Encounter Summary ---
Author Organization [facility] Address [address] [facility] [place] [address] Care Team Providers Care Regulatory Manager Name Role Phone Valente Scales MD Primary Care Provider [phone] Encounter Details Date Type Department Care Team (Late Contact Info) Description 01/09/2024 Abstract [facility] [address] [facility] [place] [address] [place] [phone] Melba Beth LPN [address] [facility] [place] [address] Social History Tobacco Use Types Packs/Day Years [...] EDT Office Visit [facility] [address] [facility] [place] [address] [place] [phone] Pérez Hubbard DO [address] [place], [place] [address] documented as of this encounter Visit Diagnoses Not on filedocumented in this encounter Care Teams Regulatory Manager Relationship Specialty Start Date End Date Valente Scales MD [address] [place] [address] PCP - General Family Medicine 01/06/24 documented as of this encounter
--- OUTSIDE RECORDS SUMMARY | 2025-01-10 20:33 | XMS_ITS | Encounter Summary ---
Author Organization [facility] Address [address] [facility] [place] [address] Care Team Providers Care Pest Technician Name Role Phone Valente Scales MD Primary Care Provider [phone] Encounter Details Date Type Department Care Team (Late st Contact Info) Description 01/10/2025 Bamboo flowsheet [facility] [address] [place] [phone] Pérez Hubbard DO [address] [place], [facility] Social History Tobacco Use Types Packs/Day Years Used Date Smoking Tobacco: Never Smokeless Tobacco: Never Alcohol Use Standard Drinks/Week Comments Not Currently [...] EDT Office Visit [facility] [address] [place] [address] Pérez Hubbard, DO [address] [place], [place] [address] documented as of this encounter Visit Diagnoses Not on filedocumented in this encounter Care Teams Pest Technician Relationship Specialty Start Date End Date Valente Scales MD [address] [place] [address] PCP - General Family Medicine 01/06/24 documented as of this encounter
--- OUTSIDE RECORDS SUMMARY | 2025-01-10 20:33 | XMS_ITS | Patient Health Record ---
Author Organization [facility] Address [address] [place] [address] Care Team Providers Care Engineering Aide Name Role Phone Joshua Scales Primary Care Provider Allergies Allergen (clinical drug ingredient) Drug/Non Drug Allergy documented on EMR Reaction Allergy Type Onset Date Status amoxicillin Amoxicillin hives Drug Allergy Act ezra Substance with sulfonamide structure and antibacterial mechanism of action (substance) Sulfa Antibiotics hives Drug Allergy Active Results Component Value Reference Range Notes MM tomosynthesis screening B I Reviewed date:10/22/2024 12:54:22 PM Interpretation: Performing Lab: Notes/Report: Source Facility: [place] [address] Mammography Report Signed Patient: KIRT REYNA MR#: [id number] : 1970 Acct:[id number] Age/Sex: 54 / F ADM Date: 10/22/24 Loc: MAMMO Attending Dr: Pérez Hubbard D.O. Ordering Physician: Pérez Hubbard D.O. Results: Date of Service: 10/22/24 Follow Up: Procedure(s): MM tomosynthesis screening BI Accession Number(s): [id number] cc: Pérez Hubbard D.O.; Valente Scales M.D. Patient Name: KIRT REYNA MR#: [id number] : 1970 Exam Date: 10/22/2024 Ordering Doctor: [...] Treatments None Family Cancers None LOCATION: [facility] BREAST COMPOSITION: The breasts are extremely dense, [...] Signed By: 10/22/24 1226 DD/ 1225 TD/TT: Implementation Services Analyst: [place] [address] Mammography Report Signed Patient: LINA REYNA MR#: [id number] : 1970 Acct:[id number] Age/Sex: 54 / F ADM Date: 10/22/24 Loc: MAMMO Attending Dr: Pérez Hubbard D.O. Ordering Physician: Pérez Hubbard D.O. Results: Date of Service: 06/07 Follow Up: Procedure(s): MM steph osynthesis screening BI Accession Number(s): [id number] cc: Pérez Hubbard D.O. ; Valente Scales M.D. Patient Name: KIRT REYNA MR#: [id number] : 1970 Exam Date: 10/22/2024 Ordering Doctor: DR Pérez Hubbard . RADIOLOGY REPORT PROCEDURE: MM TOMOSY NTHESIS SCREENING BI COMPARISON: MM TOMOS YNTHESIS DIAGNOSTIC BI, 10/22/2023. MM DIAGNOSTIC MAMMO UNILAT LT, . MM TOMOSYNTHESIS SCREENING BI, 04/08/2023. MG MAMM SCREEN CARL W CA D, 07/29/2017. INDICATIONS: Screening Calculator Name NCI Breast Cancer Risk Assessment Tool 5 Year Breast Cancer Risk 1.30% Lifetime Breast Canc er Risk 9.10% Personal Breast Cancer No Personal Ovarian Cancer No Treatments None Family Cancers None LOCATION: [facility] BREAST COMPOSITION: The breasts are extremely dense, which lowers the sensitivity of mammography. FINDINGS: RIGHT BREAST: No sig nificant suspicious finding. LEFT BREAST: No sign ificant suspicious finding. DIAGNOSTIC CATEGORY 1--NEGATIVE. RECOMMENDATIONS: ROUTINE MAMMOGRAM AN D CLINICAL EVALUATION IN 12 MONTHS. PLEASE NOTE: A QUE L MAMMOGRAM DOES NOT EXCLUDE THE POSSIBILITY OF BREAST CANCER. A CLINICALLY SUSPICIOUS PALPABLE LUMP SHOULD BE BIOPSIED. Dictated by: Morteza Orellana DO on 10/22/2024 at 12:17 Approved by: Morteza rOellana DO on 10/22/2024 at 12:25 Dictated By: Morteza Orellana D.O. Signed By: 10/22/24 1226 DD/ 1225 TD/TT: Implementation Services Analyst: Reason For Referral No Information Medications Medication SIG (Take, Route, Frequency, Duration) Notes Start Date End Date Status Fludrocortisone Acetate 0.1 MG TAKE 1/2 TABLET BY MOUTH TWICE DAILY FOR 30 DAYS for 30 Active Calcium 600 MG 1 tablet with meals Orally once daily Active Vitamin D (Cholecalciferol) 50 MCG (1999) 1 capsule Orally Once a day Active Multivitamin Active Social History Tobacco Use: Social History Observation Description Date Details (start date - stop date) Never Smoker NA - NA Tobacco Use/Smoking Question Answer Notes Patient is a nonsmoker Alcohol Screen (Audit-C) Question Answer Notes Did you have a drink containing alcohol in the p ast year? No Points 0 Interpretation Negative AUDIT-C (Standard) Question Answer Notes Did you have a drink containing alcohol in the p ast year? No Points 0 Interpretation Negative Problems Problem Type SNOMED Code ICD Code Onset Dates Problem Status W/U Status Risk Notes Problem 149611550 Gastro-esophagea l reflux disease without esophagitis (K21.9) Active confirmed Problem 415128283 Malignant neoplasm of anus, unspecified (C21.0) Active confirmed Problem 434917459 Other specified disorders of bone density and structure, unspecified site (M85.80) Active confirmed Problem 400566783 Diffuse cystic mastopathy of unspecified breast (N60.19) Active confirmed Problem 503430344 Asymptomatic menopausal state (Z78.0) Active confirmed Problem Lumbar radiculopathy (306237976) Lumbar radiculopathy (M54.16) Active confirmed Problem Well adult (539440973) Well adult (Z00.00) Active confirmed Problem Diverticulitis (11290606) Diverticulitis (K57.92) Active confirmed Problem Right upper quadrant pain (204257816) Right upper quadrant abdominal pain (R10.11) Active confirmed Problem Clavicle enlargement (M89.319) Active confirmed Problem Malignant tumor of anal canal (disorder) (783401516) Anal cancer (C21.0) Active confirmed Vital Signs Blood pressure diastolic 68 mm Hg 05/31/2024 Height 66 in 05/31/2024 Blood pressure systolic 116 mm Hg 05/31/2024 Weight 181 lbs 05/31/2024 BMI 29.21 kg/m2 05/31/2024 Encounters Encounter Location Date Provider Diagnosis [facility] [address] [place] [address] 05/31/2024 Joshua Hoy Lumbar radiculopathy M54.16 [facility] [address] [place] [address] 04/12/2024 Joshua Hoy Right upper quadrant abdominal pain R10.11 Assessments Encounter Date Diagnosis (ICD Code) Assessment Notes Treatment Notes Treatment Clinical Notes Section Notes 04/12/2024 Right upper quadrant abdominal pain (ICD-10 - R10.11) 05/31/2024 Lumbar radiculopathy (ICD-10 - M54.16) PPW completed Plan Of Treatment Pending Test Test Name Order Date CMP (COMPLETE METABOLIC PANEL) 3 HEMOGLOBIN A1C (GLYCO) 03/24/2023 IRON, TOTAL 03/24/2023 LIPID PANEL (CHOL/TRIG/HDL/LDL) 03/24/20 23 CBC WITH DIFF 03/24/2023 VITAMIN D, 25 LEVEL (TOTAL) 03/24/2023 XR Clavicle LT (2 views) * 08/18/2023 XR Clavicle RT (2 views) * 08/18/2023 MAMM Mammograms CAD 03/24/2023 Insulin Level 03/24/2023 STOOL OCCULT BLOOD 03/24/2023 CT ABD and PELV W CON 04/12/2024 XR HIPS CARL 3_4V WO PELVIS 08/18/2023 XR LSPINE 2_3 VIEWS 08/18/2023 XR WRIST LT MIN 3 V 08/18/2023 XR WRIST RT MIN 3 V 08/18/2023 THYROID PANEL (T4/TSH/FREE T3) 3 MG MAMM DIAGNOSTIC 3D CARL CAD 04/30/2023 Insurance Providers Payer Name Payer Address Payer Phone Subscriber Number Group Number Insured Name Patient Relationship to Insured Coverage Start Date Coverage End Date [employer] [place] [employer] [address] [place] [phone] [id number] Cherie Reyna Self - patient is the insured 3 Medical (General) History Medical History History ICD Code Occult Blood in Stools Peripheral Edema Ganglion Cyst Paresthesia Near Syncope Low back pain M54.5 Hypoglycemia E16.2 Migraines G43.909 Ovarian cyst N83.209 COVID-19 U07.1 GERD (gastroesophageal reflux disease) K 21.9 Dysphagia R13.10 Neoplasm of soft tissue D49.2 Surgical History Surgery Date(Month/Year) Ovarian Cyst Removal EGD- Esophageal Dilation and Bx 12/16/2018
--- OUTSIDE RECORDS SUMMARY | 2025-01-10 20:33 | XMS_ITS ---
Author Organization [facility] Address [address] [place] [address] Care Team Providers Care Collar Pointer Name Role Phone Valente Scales MD Primary Care Provider + Paco Vivas MD Unavailable [phone] Josette Varma DEAF TEACHER.CAREER PLACEMENT SERVICES COUNSELOR Unavailable [phone] Toribio Mccall MD Unavailable Active Problems Problem Noted Date Diagnosed Date Anal cancer 05/27/2022 Cancer Staging:Clinical:Stage IIB(cT3, cN0, cM0) - Signed by Paco Vivas MD on 05/27/2022 POTS (postural orthostatic tachycardia syndrome) 05/27/2022 Hiatal hernia Vertigo Current Treatment and Therapy Plans No current plan information found. Past Treatment and Therapy Plans NON-CHEMO 1 Plan Name Start Date Discontinue Date Treatment Medications Discontinue Reason Plan Provider Cycles AMB HYDRATION - NS 1000ML IV - ONCE 06/14/2022 01/18/2023 No medications scheduled. Other Paco Vivas MD 4 of 5 cycles started
--- OUTSIDE RECORDS SUMMARY | 2025-01-10 20:33 | XMS_ITS | Encounter Summary ---
Author Organization [facility] Address [address] [facility] [place] [address] Care Team Providers Care Water Tender Name Role Phone Valente Scales MD Primary Care Provider [phone] Encounter Details Date Type Department Care Team (Late Contact Info) Description 01/09/2024 Abstract [facility] [address] [place] [address] [place] [phone] Melba Beth LPN [address] [facility] [place] [address] Social History Tobacco Use Types Packs/Day Years [...] EDT Office Visit [facility] [address] [place] [place] [phone] Pérez Hubbard DO [address] [place], [place] [id number] documented as of this encounter Visit Diagnoses Not on filedocumented in this encounter Care Teams Water Tender Relationship Specialty Start Date End Date Valente Scales MD [address] [place] [phone] PCP - General Family Medicine 01/06/24 documented as of this encounter
--- OUTSIDE RECORDS SUMMARY | 2025-01-10 20:34 | XMS_ITS | Referral Summary ---
Author Organization [facility] Address [address] [place] [address] Care Team Providers Care Passport Application Examiner Name Role Phone Unavailable Primary Care Provider Unavailabl e Social History Tobacco Use Types Packs/Day Years Used Date Smoking Tobacco: Never Assessed Comments Unknown Sex and Gender Information Value Date Recorded Sex Assigned at Not on file Legal Sex Female 12:18 AM EDT Gender Identity Not on file Sexual Orientation Not on file Last Filed Vital Signs Vital Sign Reading Time Taken Comments Blood Pressure 112/64 07/22/2019 2:56 PM EST Pulse 83 07/22/2019 2:51 PM EST Temperature - - Respiratory Rate - - Oxygen Saturation 99% 07/22/2019 2:51 PM EST Inhaled Oxygen Concentration - - Weight 69.9 kg (154 lb) 07/22/2019 2:50 PM EST Height 167.6 cm (5' 6 ) 07/22/2019 2:47 PM EST Body Mass Index 24.86 07/22/2019 2:47 PM EST Plan of Treatment Not on file
--- OUTSIDE RECORDS SUMMARY | 2025-01-10 20:34 | XMS_ITS | Clinical Summary ---
Author Organization [facility] Address [address] [place] [address] Care Team Providers Care Vp [employer] Name Role Phone Unavailable Primary Care Provider [...]
--- OUTSIDE RECORDS SUMMARY | 2025-01-10 20:40 | XMS_ITS | CCD ---
Author Organization [facility] Care Team Providers Care Java Analyst Name Role Phone Sondra Liu Primary Care Physician Sondra Liu MD Primary Care Provider [phone] PHIL DOUGHERTY Referring Unavailable SONDRA LIU Primary Care Unavailable Paco Bonds MD Unavailable Dean NON DESTRUCTIVE EVALUATION MANAGER.COMMUNITY RESOURCE OFFICER, Gerardo Unavailable Ventura RN, Jah Unavailable [phone] Toribio Michaud MD Unavailable Sondra Liu MD Primary Care Provider [phone] Paco Bonds MD Unavailable Dean NON DESTRUCTIVE EVALUATION MANAGER.COMMUNITY RESOURCE OFFICER, Gerardo Unavailable Ventura PINTO, Jah Unavailable [phone] Toribio Michaud MD Unavailable RODERICK, DR HAIDER Admitting Unavailable NILL, DR HAIDER Attending Unavailable NILL, DR HAIDER Consulting Unavailable HOY, DR AMARO Primary Care Unavailable LIVE UP Consulting Unavailable KATHY AGUILAR Consulting Unavailable NILL, DR HAIDER Attending Unavailable NILL, DR HAIDER Admitting Unavailable FREEDOMY, DR AMARO Primary Care Unavailable NILL, DR HAIDER Attending Unavailable NILL, DR HAIDER Admitting Unavailable FREEDOMY, DR AMARO Primary Care Unavailable NOE, DR AMARO Admitting Unavailable NOE, DR AMARO Primary Care Unavailable NOE, DR AMARO Attending Unavailable TORIBIO MICHAUD Admitting Unavailable TORIBIO MICHAUD Attending Unavailable NOE, DR AMARO Primary Care Unavailable NOE, DR AMARO Admitting Unavailable NOE, DR AMARO Primary Care Unavailable NOE, DR AMARO Consulting Unavailable NOE, DR AMARO Attending Unavailable HOY, DR AMARO Admitting Unavailable HOY, DR AMARO Primary Care Unavailable HOY, DR AMARO Consulting Unavailable HOY, DR AMRAO Attending Unavailable WEST, DR PHIL Johnston Consulting [...] Care Unavailable JASWANT, TORIBIO Referring Unavailable Ventura PINTO, Jah Unavailable [phone] Sondra Liu MD Primary Care Provider [phone] PÉREZ HUBBARD Attending Unavailable Ventura PINTO, Jah Unavailable Sondra Liu MD Primary Care Provider [phone] JASWANT, TORIBIO Referring Unavailable HOY, SONDRA M Primary Care Unavailable PHIL DOUGHERTY Referring Unavailable PIHL DOUGHERTY Attending Unavailable HOY, SONDRA M Primary Care Unavailable PHIL DOUGHERTY Attending Unavailable HOY, SONDRA M Primary Care Unavailable HOY, SONDRA M Primary Care Unavailable GERARDO MCKINNON Attending Unavailable HOY, SONDRA M Primary Care Unavailable ABHYANKAR, PACO Referring Unavailable HOY, SONDRA M Primary Care Unavailable PHIL DOUGHERTY Referring Unavailable PHIL DOUGHERTY Attending Unavailable JASWANT, TORIBIO Referring Unavailable HOY, SONDRA M Primary Care Unavailable ABGIAANKAR, PACO Referring Unavailable ABVALENCIAAR, PACO Attending Unavailable HOY, SONDRA M Primary Care Unavailable ABGIAANKAR, PACO Referring Unavailable JASWANT, TORIBIO Attending Unavailable HOY, SONDRA M Primary Care Unavailable Sondra Liu MD Primary Care Provider [phone] Allergies Allergy Classification Reported Allergen(s) Allergy Type Date of Onset Reaction(s) Facility (6 sources) Amoxicillin; Translations: [amoxicillin] Drug Allergy 4 [facility] (disorder), Hives [facility] (2 sources) Sulfonamides (Antibiotic); Translations: [sulfa drugs] Drug allergy [facility] (20 sources) Penicillin G; Translations: [PENICILLIN G] Drug Allergy 4 Unknown [facility] (20 sources) Sulfonamides (Antibiotic); Translations: [SULFA (SULFONAMIDE ANTIBIOTICS)] Drug Allergy 4 Unknown, Hives [facility] (2 sources) Penicillins Drug allergy (disorder) 3 [facility] (2 sources) Sulfonamides (Antibiotic) Drug allergy (disorder) 3 [facility] (4 sources) Penicillins Drug Allergy 4 Unknown [facility] Medications Current Medications Medication Drug Class(es) Dates Sig (Normalized) Sig (Original) Acetaminophen / diphenhydrAMINE (20 sources) Histamine-1 Receptor Antagonist acetaminophen/diphe nhydramine (TYLENOL PM EXTRA STRENGTH ORAL) Take 500 mg by mouth as needed. Active acetaminophen/di phenhydramine (TYLENOL PM EXTRA STRENGTH ORAL) Take 500 mg by mouth as needed. 0 Active Comment on above: Take 500 mg by mouth as needed. ascorbic acid 60 mg / cholecalciferol 0.01 mg / folic acid 0.3 mg / niacin 13.5 mg / riboflavin 1.2 mg / sodium fluoride 0.55 mg / thiamine 1.05 mg / vitamin a 0.75 mg / vitamin b12 0.0045 mg / vitamin b6 1.05 mg / vitamin e 6.75 mg chewable tablet (4 sources) Nicotinic Acid, Vitamin A, Vitamin B12, Vitamin D, Vitamin C Pediatric Multivitam ins-Fl (MultiVitamin + Fluoride) 0.25 MG chewable tablet Multivitamin Active Calcium (17 sources) Phosphate Binder, Calcium CALCIUM ORAL Take by mouth once daily. Active CALCIUM ORAL Trevor e by mouth once daily. 0 Active Comment on above: Take by mouth once d aily. calcium carbonate 1500 mg or al tablet (4 sources) calcium carbonat e (Super Calcium) 1500 (600 Ca) MG tablet 1 (one) time each day at the same time Active cholecalciferol 0.05 mg oral capsule (4 sources) Vitamin D cholecalciferol (Vitamin D-3) 50 MCG (1999 UT) capsule 1 capsule 1 (one) time each day at the same time Active cholecalciferol, vitamin D3, (VITAMIN D3 ORAL) (17 sources) cholecalciferol, vitamin D3, (VITAMIN D3 ORAL) [...] Refills(s) 0 Start Date: 02/15/22 Status: Ordered take 0.5 tablet by m outh once daily fludrocortisone (Florinef) 0.1 MG tablet Take 0.5 tablets every day by oral route. Active Comment on above: TAKE 0.5 TABLET BY [...] Status: Ordered multivit-min/ferrous fumarate (MULTI VITAMIN ORAL) (17 sources) multivit-min/teresita rou s fumarate (MULTI VITAMIN [...] tablet (20 sources) Serotonin-3 Receptor Antagonist Start: take 1 tablet by mouth every eight [...] Histamine-1 Receptor Antagonist Start: 06-24-20 End: 10-29-19 diphenhydrAMINE (BENADRYL) 12.5 mg/5 mL liquid 06/24/2022 [...] provided with radiology test) (20 sources) Start: 11-02-2024 End: 11-03-2024 enteric contrast (will be provided with radiology test) MRI RECTUM WO/W. Administer, As Directed One Time Only, via Oral, Rectal, both Oral and Rectal, Enteric Tube, Stoma or Indwelling Catheter, Enteric Contrast as designated per enteric contrast guidelines 1 each 11/02/2024 11/03/2024 Start: 11-02-2024 End: 11-03-2024 enteric contrast (will be pr ovided with radiology test) For CT ABD W IVCON order Administer, As Directed One Time Only, via Oral, Rectal, both Oral and Rectal, Enteric Tube, Stoma or Indwelling Catheter, Enteric Contrast as designated per enteric contrast guidelines 1 each 11/02/2024 11/03/2024 Start: 10-27-2023 End: 10-28-2023 enteric contrast (will be pr ovided with radiology test) For CT ABD W [...] provided with radiology test) (20 sources) Start: 11-02-2024 End: 11-03-2024 iv contrast (will be provided with radiology [...] the MR contrast administration guidelines link. 1 each 11/02/2024 11/03/2024 Start: 11-02-2024 End: 11-03-2024 iv contrast (will be provide d with radiology test) CT Chest W -Inject, [...] the CT contrast administration guidelines link. 1 each 11/02/2024 11/03/2024 Start: 11-02-2024 End: 11-03-2024 iv contrast (will be provide d with [...] the CT contrast administration guidelines link. 1 each 11/02/2024 11/03/2024 Start: 10-27-2023 End: 10-28-2023 iv contrast (will be provide d with radiology test) CT Chest W -Inject, [...] (20 sources) Antiarrhythmic, Amide Local Anesthetic Start: End: lidocaine (XYLOCAINE) 2 % jelly Apply 1-2 times a day to affected area as needed for pain/discomfort. Test in small unaffected area first for reaction. 30 mL 06/27/2022 10/28/2022 Discontinued Comment on above: Apply 1-2 times a da y to affected area as needed for pain/discomfort. Test in small unaffected area first for reaction. prochlorperazine 10 mg oral tablet (20 sources) Phenothiazine Start: End: take 1 tablet by mouth every six [...] neoplasm of anus, unspecified] Onset: 2 Chronic Cancer of rectum and anus (1 source) Personal history of other malignant neoplasm of rectum, rectosigmoid junction, and anus; Translations: [Encounter for follow-up surveillance of anal cancer] Onset: 5 Episodic Cancer; other and unspecified primary (5 sources) Malignant tumor of pelvis; Translations: [Malignant neoplasm of pelvis] 10-27-2023 Chronic Cancer; other and unspecified primary (2 sources) Malignant neoplasm of pelvis; Translations: [Malignant neoplasm of pelvis (HCC)] Onset: 5 Chronic Cardiac dysrhythmias (20 sources) Postural orthostatic [...] female climacteric states] 02-10-2023 Chronic Other aftercare (4 sources) History of malignant neoplasm of anus; Translations: [Encounter for follow-up examination after completed treatment for malignant neoplasm] Episodic Other aftercare (1 source) Encounter for follow-up examination after completed treatment for malignant neoplasm; Translations: [Encounter for follow-up surveillance of anal cancer] Onset: 5 Episodic Other circulatory disease (1 source) Orthostatic [...] conditions (not mental disorders or infectious disease) (4 sources) Patient encounter status; Translations: [Encounter for screening for osteoporosis] 02-10-2023 Episodic Ovarian cyst (1 source) Cyst of ovary 02-15-2022 Episodic Residual codes; unclassified (1 source) Peripheral edema 02-15-2022 Episodic Residual codes; unclassified (2 sources) Postmenopausal state; Translations: [Asymptomatic menopausal state] 01-10-2025 Episodic Spondylosis; intervertebral disc disorders; other back [...] [CONTACT W/AND (SUSP) EXPOS COVID-19] Onset: 2 Unclassified (1 source) POTS (postural orthostatic tachycardia syndrome); Translations: [POTS (postural orthostatic tachycardia syndrome)] Onset: 2 Past or Other Problems Problem Classification Problem Date Documented Da te Episodic/Chronic Other gastrointestinal disorders (1 source) Diarrhea, unspecified; Translations: [Diarrhea, unspecified type] Onset: 12-12-2023 Episodic Other inflammatory condition of skin (1 source) Pruritus ani; Translations: [Anal itching] Onset: 12-12-2023 Episodic Residual codes; unclassified (4 sources) Localized edema; Translations: [LOCALIZED EDEMA] Onset: 12-28-2021 Episodic Results Test Name Value Interpretation Reference Range Facility [facility] 11-26-2024 CNOV Office Visit ([facility] ) KIRT REYNA ([id number]) 1970 F Date Time Provider Department 11/26/24 3:40 PM PHIL DOUGHERTY [facility] During your visit today, we recorded the following information about you: Temperature Pulse Blood pressure 97.5 degrees 88/minute 146/69 Phil Dougherty MD 11/26/2024 4:45 PM Signed COLORECTAL SURGERY November 26, 2024 Kirt Reyna 54 year old Chief Complaint: anal cancer surveillance History of Present Illness: Kirt Reyna is a 54 year old female presents today for anal cancer surveillance. She was last seen in office 05/28/25. Oncology - Dr. Bonds MRI rectum 10/26/24 Since 09/29/2023, post treatment primary tumor assessment: - Stable appearance of fibrosis/scarring at the site of the previously treated anorectal neoplasm, with no evidence of residual/recurrent disease. CT Abdomen 10/28/24 No metastatic disease in the abdomen. CT chest 10/28/24 No metastatic disease in the chest. She feels great. Normal bowel movements. No issues with urination. No complaints PAST MEDICAL HISTORY Diagnosis Date Hiatal hernia [...] FOR NAUSEA AND VOMITING (Patient taking differently: No sig reported) 90 tablet 1 Lidocaine-Hydrocortis one-Aloe 2.8-0.55 % [...] No Drug use: No Physical Exam: BP 146/69 (BP Site: Left Arm, BP Position: Sitting, BP Cuff Size: Regular Adult) Pulse 88 Temp 36.4 ?C (97.5 ?F) SpO2 99% General Appearance: Well appearing, alert, in no acute distress, well-hydrated, well nourished. Anorectal: External exam reveals no lesions. Digital rectal exam reveals no gross blood or masses School Counsellor present: Yes, Padmini Garcia Anoscopy: The patient was placed in chest-knee position. After digital exam with a lubricated finger, the scope was easily inserted. Posterior scar noted. Otherwise normal mucosa was noted. Anoscopy completed. The sensitive examination was discussed with the Patient or Patient's Authorized Youth Leader. As applicable, any other physician, advance practice provider, medical student, or other health professional student that will be observing or involved in the sensitive examination for educational or training purposes was discussed with the Patient or Authorized Youth Leader. The Patient or Authorized Youth Leader has agreed to proceed with the sensitive examination. (Sensitive examination includes inspection and/or palpation of the breasts, pelvis, prostate and anorectal regions) Assessment Assessment and Plan: Kirt Reyna is a 54 year old female with history of anal cancer status post chemoradiation now about 2.5 years out from diagnosis. She will need inguinal lymph node and anoscopic exams every 6 months for 5 years total. Recent imaging did not show any evidence of residual disease. She will follow-up with Jayda Wang in 6 months for her next exam and to be scheduled for her every 6-month anoscopic exam and inguinal lymph node check with Jayda Medical Decision Making: Data Reviewed: Tests AND Documents Reviewed/ordered: Review of prior notes from myself Review of Pathology Review of Imaging: CT Abdomen, CT Pelvis, MRI Pelvis, CT Chest Review of Labs: CBC, BMP Review of Procedures / Tests: Colonoscopy I have independently interpreted: CT Abdomen, MRI Pelvis, CT Chest Risk of morbidity, mortality and/or complications of treatment plan: high Phil Dougherty MD Colorectal Surgery Referring Provider: PHIL DOUGHERTY [[id number]] Allergies As of Date: 11/26/2024 Noted Allergy Reaction PE (more content not included)... Normal [facility] CNOVon 11-02-2024 CNOV Office Visit ([facility] ) KIRT REYNA ([id number]) 1970 F Date Time Provider Department 11/02/24 2:00 PM TORIBIO MICHAUD During your visit today, we recorded the following information about you: Toribio Michaud MD 11/17/2024 5:54 AM Addendum Radiation Oncology - Follow Up Note PATIENT NAME: Kirt Reyna PATIENT DIAGNOSIS/PATIENT IDENTIFICATION: Ms. 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 She completed a course of definitive concurrent chemoradiation therapy on 07/25/2022 (5600 cGy delivered in 28 fractions with partial course of Xeloda). INTERVAL HISTORY: Ms. Reyna returns to clinic today for routine follow-up approximately two years after the completion of her radiation treatments and one year since her last visit on 10/27/2023. In the interim, she had her surveillance imaging with CT chest abdomen and MRI of the rectum on 10/26/2024 which showed stable posttreatment changes in the pelvis with no evidence of local regional or distant disease. She also had an anoscopy and anorectal exam on 05/28/[address] Dougherty which was without concerns. Today she reports doing well denies any pain or discomfort in the treatment area. She has had occasional bleeding with bowel movements which she notes is usually when she is constipated. She otherwise denies any diarrhea or pain with bowel movements. She reports no urinary issues except for urgency and no vaginal dryness or itching or vaginal bleeding/discharge or nausea. She reports no skin irritation or breakdown of her skin in the treatment area. She does note some fatigue as she is going through menopause with stable appetite and hydration and weight. Recently she has been noting back pain for which she is doing physical therapy. ALLERGIES ALLERGIES Allergen Reactions Penicillin G Unknown [...] deficit; AANDO X3. RADIOLOGIC DATA: MRI Rectum (10/26/2024) IMPRESSION: Since 09/29/2023, post treatment primary tumor assessment: - Stable appearance of fibrosis/scarring at the site of the previously treated anorectal neoplasm, with no evidence of residual/recurrent disease. CT Chest (10/26/2024) IMPRESSION: No metastatic disease in the chest. CT Abdomen (10/26/2024) IMPRESSION: No metastatic disease in the abdomen. ASSESSMENT AND PLAN: Ms. Reyna is a 54-year-old woman with [id number] squamous cell carcinoma of the anal canal. She completed a course of definitive concurrent chemoradiation therapy on 07/25/2022 (5600 cGy delivered in 28 fractions with partial course of Xeloda). Ms. Reyna is doing well clinically approximately 2 years out from the completion of her chemoradiation treatments to the pelvis both stable residual sequela at this time. We reviewed dietary modifications and the use of stool softeners and laxatives to avoid constipation leading to bleeding and trauma to the anal rectal area. She is without radiographic or clinical concern for disease recurrence based on imaging with CT chest abdomen and MRI of the rectum from 10/26/2024 as well as anoscopy by Dr. Dougherty in May. She is scheduled for repeat anoscopy next month I will plan to see her back in approximately 1 year after repeat imaging. The patient is aware to contact the clinic in the interim should any questions or concerns arise. Thank you for allowing us to participate in the care of this patient. Signed by: Toribio Michaud MD I spent a total of 20 minutes on the date of the service which included preparing to see the patient, [id number] patient care, and counseling and educating the patient/family/caregi gavin. This document has been created with the use of voice recognition technology. It may contain inaccuracies, misspellings, inaccurate syntax or inappropriate word context that are a result of the inadequacies/shortcom ings of said technology/software. Referring Provider: PACO BONDS [[id number]] Allergies As of Date: 11/02/2024 Noted Allergy Reaction PENICILLIN G 08/23/2013 16 - Unknown SULFA (SULFONAMIDE ANTIBIOTICS) 08/23/2013 16 - Unknown Date Reviewed: 11/02/2024 Reviewed by: Eliza Ramires RN - Gui Carmona (more content not included)... Normal [facility] CNOVSPon 11-02-2024 [facility] KIRT [facility] ([id number]) 1970 F Date Time Provider Department 11/02/24 1:40 PM PACO BONDS During your visit today, we recorded the following information about you: Temperature Pulse Respiration Blood pressure 98.1 degrees 79/minute 16/minute 138/79 Weight Height 83.4 kg 1.702 m Paco Bonds MD 11/02/2024 7:37 PM Signed NAME: Kirt Reyna CLINIC NO.: [id number] DATE OF SERVICE: November 02, 2024 (Sangeetha) Some elements in this clinic note that are critical to medical decision making have been carefully reviewed and included from a prior clinic note dated: April 26, 2024 (Dean) Referring Provider: Dr. Phil Dougherty Additional [...] Michaud Labs on return - CBC, CMP Repeat scans per Dr. Michaud Follow up with Dr. Dougherty as scheduled - HPI: CASE HISTORY: Reverse Chronological Order 10/28/2024 - CT CAP: Chest: No metastatic disease in the chest. A/P: No metastatic disease in the abdomen. 10/26/2024 - MRI Rectum: Since 09/29/2023, post treatment primary tumor assessment: Stable appearance of fibrosis/scarring at the site of the previously treated anorectal neoplasm, with no evidence of residual/recurrent disease. 10/22/2024 - Bilateral Screening Mammogram: RIGHT BREAST: No significant suspicious finding. LEFT BREAST: No significant suspicious finding. DIAGNOSTIC CATEGORY 1--NEGATIVE. 10/22/2023 - US Breast RT: Diagnostic category: [...] pulmonary nodules, otherwise negative for metastatic disease. 04/13 (more content not included)... Normal [facility] CBC W Auto Differential pane l (Bld)on 10-28-2024 Basophils (Bld) [#/Vol] [facility] Basophils/100 WBC (Bld) 0.4 % [facility] Differential cell count method Nom (Bld) Auto [facility] Eosinophils (Bld) [#/Vol] 0.14 10*3/uL [facility] Eosinophils/100 WBC (Bld) 2.9 % [facility] Erythrocyte distribution width (RBC) [Ratio] 13 % 11.5 - 15.0 % [facility] Hematocrit (Bld) [Volume fraction] 39.2 % 36.0 - 46.0 % [facility] Hemoglobin (Bld) [Mass/Vol] 13.3 g/dL 11.5 - 15.5 g/dL [facility] Immature granulocytes (Bld) [#/Vol] [facility] Immature granulocytes/100 WBC (Bld) 0.2 % [facility] Lymphocytes (Bld) [#/Vol] 1.06 10*3/uL [facility] Lymphocytes/100 WBC (Bld) 21.6 % [facility] MCH (RBC) [Entitic mass] 30.2 pg 26.0 - 34.0 pg [facility] MCHC (RBC) [Mass/Vol] 33.9 g/dL 30.5 - 36.0 g/dL [facility] MCV (RBC) [Entitic vol] 89.1 fL 80.0 - 100.0 fL [facility] Monocytes (Bld) [#/Vol] 0.35 10*3/uL NINF [facility] Monocytes/100 WBC (Bld) 7.1 % [facility] Neutrophils (Bld) [#/Vol] 3.32 10*3/uL [facility] Neutrophils/100 WBC (Bld) 67.8 % [facility] Nucleated RBC (Bld) [#/Vol] NINF [facility] Nucleated RBC/100 WBC (Bld) [Ratio] 0 % /100 WBC [facility] Platelet mean volume (Bld) [Entitic vol] 9.9 fL 9.0 - 12.7 fL [facility] Platelets (Bld) [#/Vol] 242 10*3/uL [facility] RBC (Bld) [#/Vol] 4.4 10*6/uL 3.90 - 5.2 0 m/uL [facility] WBC (Bld) [#/Vol] 4.9 10*3/uL [facility] Basophils (Bld) [#/Vol] 10*3/uL Normal <0.11 [facility] Comment on above: Order Comment: Speci men Type: BLOOD SPECIMENOrdering Facility: [facility] Address: [address] [place] [address] Performed By: #### 5 7021-8 ####[facility] [id number] [place] [address] Basophils/100 WBC (Bld) 0.4 % Normal [facility] Comment on above: Order Comment: Speci men Type: BLOOD SPECIMENOrdering Facility: [facility] Address: [address] [place] [address] Performed By: #### 5 7021-8 ####[facility] [id number] [place] [address] Differential cell count method Nom (Bld) Auto Normal [facility] Comment on above: Order Comment: Speci men Type: BLOOD SPECIMENOrdering Facility: [facility] Address: [address] [place] [address] Performed By: #### 5 7021-8 ####[facility] [id number] [place] [address] Eosinophils (Bld) [#/Vol] 0.14 10*3/uL Normal <0.46 [facility] Comment on above: Order Comment: Speci men Type: BLOOD SPECIMENOrdering Facility: [facility] Address: [address] [place] [address] Performed By: #### 5 7021-8 ####[facility] [id number] [place] [address] Eosinophils/100 WBC (Bld) 2.9 % Normal [facility] Comment on above: Order Comment: Speci men Type: BLOOD SPECIMENOrdering Facility: [facility] Address: [address] [place] [address] Performed By: #### 5 7021-8 ####[facility] [id number] [place] [address] Erythrocyte distribution width (RBC) [Ratio] 13.0 % Normal 11.5-15.0 [facility] Comment on above: Order Comment: Speci men Type: BLOOD SPECIMENOrdering Facility: [facility] Address: [address] [place] [address] Performed By: #### 5 7021-8 ####[facility] [id number] [place] [address] Hematocrit (Bld) [Volume fraction] 39.2 % Normal 36.0-46.0 [facility] Comment on above: Order Comment: Speci men Type: BLOOD SPECIMENOrdering Facility: [facility] Address: [address] [place] [address] Performed By: #### 5 7021-8 ####[facility] [id number] [place] [address] Hemoglobin (Bld) [Mass/Vol] 13.3 g/dL Normal 11.5-15.5 [facility] Comment on above: Order Comment: Speci men Type: BLOOD SPECIMENOrdering Facility: [facility] Address: [address] [place] [address] Performed By: #### 5 7021-8 ####[facility]CLIA [id number] [place] [address] Immature granulocytes (Bld) [#/Vol] 10*3/uL Normal <0.10 [facility] Comment on above: Order Comment: Speci men Type: BLOOD SPECIMENOrdering Facility: [facility] Address: [address] [place] [address] Performed By: #### 5 7021-8 ####[facility] LABCLIA [id number] [place] [address] Immature granulocytes/100 WBC (Bld) 0.2 % Normal [facility] Comment on above: Order Comment: Speci men Type: BLOOD SPECIMENOrdering Facility: [facility] Address: [address] [place] [address] Performed By: #### 5 7021-8 ####[facility] LABCLIA [id number] [place] [address] Lymphocytes (Bld) [#/Vol] 1.06 10*3/uL Normal 1.00-4.00 [facility] Comment on above: Order Comment: Speci men Type: BLOOD SPECIMENOrdering Facility: [facility] Address: [address] [place] [address] Performed By: #### 5 7021-8 ####[facility] LABCLIA [id number] [place] [address] Lymphocytes/100 WBC (Bld) 21.6 % Normal [facility] Comment on above: Order Comment: Speci men Type: BLOOD SPECIMENOrdering Facility: [facility] Address: [address] [place] [address] Performed By: #### 5 7021-8 ####[facility] LABCLIA [id number] [place] [address] MCH (RBC) [Entitic mass] 30.2 pg Normal 26.0-34.0 [facility] Comment on above: Order Comment: Speci men Type: BLOOD SPECIMENOrdering Facility: [facility] Address: [address] [place] [address] Performed By: #### 5 7021-8 ####[facility] LABCLIA [id number] [place] [address] MCHC (RBC) [Mass/Vol] 33.9 g/dL Normal 30.5-36.0 [facility] Comment on above: Order Comment: Speci men Type: BLOOD SPECIMENOrdering Facility: [facility] Address: [address] [place] [address] Performed By: #### 5 7021-8 ####[facility] LABCLIA [id number] [place] [address] MCV (RBC) [Entitic vol] 89.1 fL Normal 80.0-100.0 [facility] Comment on above: Order Comment: Speci men Type: BLOOD SPECIMENOrdering Facility: [facility] Address: [address] [place] [address] Performed By: #### 5 7021-8 ####[facility] LABCLIA [id number] [place] [address] Monocytes (Bld) [#/Vol] 0.35 10*3/uL Normal <0.87 [facility] Comment on above: Order Comment: Speci men Type: BLOOD SPECIMENOrdering Facility: [facility] Address: [address] [place] [address] Performed By: #### 5 7021-8 ####[facility] LABCLIA [id number] [place] [address] Monocytes/100 WBC (Bld) 7.1 % Normal [facility] Comment on above: Order Comment: Speci men Type: BLOOD SPECIMENOrdering Facility: [facility] Address: [address] [place] [address] Performed By: #### 5 7021-8 ####[facility] LABCLIA [id number] [place] [address] Neutrophils (Bld) [#/Vol] 3.32 10*3/uL Normal 1.45-7.50 [facility] Comment on above: Order Comment: Speci men Type: BLOOD SPECIMENOrdering Facility: [facility] Address: [address] [place] [address] Performed By: #### 5 7021-8 ####[facility] LABCLIA [id number] [place] [address] Neutrophils/100 WBC (Bld) 67.8 % Normal [facility] Comment on above: Order Comment: Speci men Type: BLOOD SPECIMENOrdering Facility: [facility] Address: [address] [place] [address] Performed By: #### 5 7021-8 ####[facility] LABCLIA [id number] [place] [address] Nucleated RBC (Bld) [#/Vol] 10*3/uL Normal <0.01 [facility] Comment on above: Order Comment: Speci men Type: BLOOD SPECIMENOrdering Facility: [facility] Address: [address] [place] [address] Performed By: #### 5 7021-8 ####[facility] LABCLIA [id number] [place] [address] Nucleated RBC/100 WBC (Bld) [Ratio] 0.0 /100 WBC Normal [facility] Comment on above: Order Comment: Speci men Type: BLOOD SPECIMENOrdering Facility: [facility] Address: [address] [place] [address] Performed By: #### 5 7021-8 ####[facility] LABIA [id number] [place] [address] Platelet mean volume (Bld) [Entitic vol] 9.9 fL Normal 9.0-12.7 [facility] Comment on above: Order Comment: Speci men Type: BLOOD SPECIMENOrdering Facility: [facility] Address: [address] [place], [place] [address] Performed By: #### 5 7021-8 ####[facility] LABCLIA [id number] [place] [address] Platelets (Bld) [#/Vol] 242 10*3/uL Normal 150-400 [facility] Comment on above: Order Comment: Speci men Type: BLOOD SPECIMENOrdering Facility: [facility] Address: [address] [place] [address] Performed By: #### 5 7021-8 ####[facility] LABCLIA [id number] [place] [address] RBC (Bld) [#/Vol] 4.40 10*6/uL Normal 3.90-5.20 [facility] Comment on above: Order Comment: Speci men Type: BLOOD SPECIMENOrdering Facility: [facility] Address: [address] [place] [address] Performed By: #### 5 7021-8 ####[facility] LABCLIA [id number] [place] [address] WBC (Bld) [#/Vol] 4.90 10*3/uL Normal 3.70-11.00 [facility] Comment on above: Order Comment: Speci men Type: BLOOD SPECIMENOrdering Facility: [facility] Address: [address] [place] [address] Performed By: #### 5 7021-8 ####[facility] LABCLIA [id number] [place] [address] CT ABDOMEN W IVCONon 10-28- 025 CT ABDOMEN W IVCON * * *Final Report* * * DATE OF EXAM: Oct 28 2024 11:22AM [facility] 0533 - CT ABDOMEN W IVCON / PROCEDURE REASON: Rectal cancer, monitor * * * * Physician Interpretation * * * * RESULT: EXAMINATION: CT ABDOMEN WITH IV CONTRAST HISTORY: Rectal cancer, monitor Rectal cancer, monitor TECHNIQUE: CT of the abdomen was performed using standard technique, scanning from just above the dome of the diaphragm to the iliac crest. M: CTAbd_3 Contrast: IV: 100 ml of Omnipaque 350 Oral: 500 ml of Omni 240 10-25ml diluted with water CT Radiation dose: Integrated Dose-length product (DLP) for this visit = 664 mGy*cm. CT Dose Reduction Employed: Automated exposure control (AEC) COMPARISON: MRI abdomen 09/29/2023 RESULT: Liver: No focal hepatic lesions. Spleen: No focal splenic lesion. Pancreas: No focal pancreatic lesions. Adrenals: No mass. Biliary: No bile duct dilation. No gallbladder wall thickening. Kidneys: Symmetric nephrograms bilaterally without hydronephrosis. Vasculature: The celiac axis and SMA are patent. The portal vein and branches, splenic vein, SMV, and hepatic veins are patent. Abdominal aorta is normal in caliber. GI tract: No dilated loops of bowel. Lymph nodes: No lymphadenopathy by CT size criteria. Mesentery/Peritoneum: No ascites, fluid collection, or mass. Bones/Soft Tissues: Small fat-containing umbilical hernia. Lower thorax: Dedicated CT imaging of the chest was performed concurrently and is dictated separately. Dental Technician (topogram) images: Unremarkable. IMPRESSION: No metastatic disease in the abdomen. Transcribe Date/Time: Oct 28 2024 1:03P Dictated by: AGUSTÍN CHAVEZ MD This examination was interpreted and the report reviewed and electronically signed by: AGUSTÍN CHAVEZ MD on Oct 28 2024 1:07PM EST Thank you for allowing us to participate in the care of your patient. Should there be any questions regarding this interpretation, please call [phone]. If you are unable to reach us at the number above, please feel free to contact [facility]Radiology at [phone]. [id number] N Normal [facility] CT Abdomen W contrast John 0 10-28-2024 IMPRESSION: No metastatic disease in the abdomen. Transcribe Date/Time: Oct 28 2024 1:03P Dictated by: AGUSTÍN CHAVEZ MD This examination was interpreted and the report reviewed and electronically signed by: AGUSTÍN CHAVEZ MD on Oct 28 2024 1:07PM EST Thank you for allowing us to participate in the care of your patient. Should there be any questions regarding this interpretation, please call [phone]. If you are unable to reach us at the number above, please feel free to [facility] at [phone]. DIVISION OF RADIOLOGY * * *Final Report* * * DATE OF EXAM: Oct 28 2024 11:22AM [facility] 0533 - CT ABDOMEN W IVCON / PROCEDURE REASON: Rectal cancer, monitor * * * * Physician Interpretation * * * * RESULT: EXAMINATION: CT ABDOMEN WITH IV CONTRAST HISTORY: Rectal cancer, monitor Rectal cancer, monitor TECHNIQUE: CT of the abdomen was performed using standard technique, scanning from just above the dome of the diaphragm to the iliac crest. M: CTAbd_3 Contrast: IV: 100 ml of Omnipaque 350 Oral: 500 ml of Omni 240 10-25ml diluted with water CT Radiation dose: Integrated Dose-length product (DLP) for this visit = 664 mGy*cm. CT Dose Reduction Employed: Automated exposure control (AEC) COMPARISON: MRI abdomen 09/29/2023 RESULT: Liver: No focal hepatic lesions. Spleen: No focal splenic lesion. Pancreas: No focal pancreatic lesions. Adrenals: No mass. Biliary: No bile duct dilation. No gallbladder wall thickening. Kidneys: Symmetric nephrograms bilaterally without hydronephrosis. Vasculature: The celiac axis and SMA are patent. The portal vein and branches, splenic vein, SMV, and hepatic veins are patent. Abdominal aorta is normal in caliber. GI tract: No dilated loops of bowel. Lymph nodes: No lymphadenopathy by CT size criteria. Mesentery/Peritoneum: No ascites, fluid collection, or mass. Bones/Soft Tissues: Small fat-containing umbilical hernia. Lower thorax: Dedicated CT imaging of the chest was performed concurrently and is dictated separately. Dental Technician (topogram) images: Unremarkable. DIVISION OF RADIOLOGY Provider, Vincenzo Wilcox - 10/28/2024 * * *Final Report* * * DATE OF EXAM: Oct 28 2024 11:22AM [facility] 0533 - CT ABDOMEN W IVCON / PROCEDURE REASON: Rectal cancer, monitor * * * * Physician Interpretation * * * * RESULT: EXAMINATION: CT ABDOMEN WITH IV CONTRAST HISTORY: Rectal cancer, monitor Rectal cancer, monitor TECHNIQUE: CT of the abdomen was performed using standard technique, scanning from just above the dome of the diaphragm to the iliac crest. M: CTAbd_3 Contrast: IV: 100 ml of Omnipaque 350 Oral: 500 ml of Omni 240 10-25ml diluted with water CT Radiation dose: Integrated Dose-length product (DLP) for this visit = 664 mGy*cm. CT Dose Reduction Employed: Automated exposure control (AEC) COMPARISON: MRI abdomen 09/29/2023 RESULT: Liver: No focal hepatic lesions. Spleen: No focal splenic lesion. Pancreas: No focal pancreatic lesions. Adrenals: No mass. Biliary: No bile duct dilation. No gallbladder wall thickening. Kidneys: Symmetric nephrograms bilaterally without hydronephrosis. Vasculature: The celiac axis and SMA are patent. The portal vein and branches, splenic vein, SMV, and hepatic veins are patent. Abdominal aorta is normal in caliber. GI tract: No dilated loops of bowel. Lymph nodes: No lymphadenopathy by CT size criteria. Mesentery/Peritoneum: No ascites, fluid collection, or mass. Bones/Soft Tissues: Small fat-containing umbilical hernia. Lower thorax: Dedicated CT imaging of the chest was performed concurrently and is dictated separately. Dental Technician (topogram) images: Unremarkable. IMPRESSION IMPRESSION: No metastatic disease in the abdomen. Transcribe Date/Time: Oct 28 2024 1:03P Dictated by: AGUSTÍN CHAVEZ MD This examination was interpreted and the report reviewed and electronically signed by: AGUSTÍN CHAVEZ MD on Oct 28 2024 1:07PM EST Thank you for allowing us to participate in the care of your patient. Should there be any questions regarding this interpretation, please call [phone]. If you are unable to reach us at the number above, please feel free to contact [facility] at [phone]. [facility] CT CHEST W IVCONon CT CHEST W IVCON * * *Final Report* * * DATE OF EXAM: Oct 28 2024 11:22AM [facility] 0539 - CT CHEST W IVCON / PROCEDURE REASON: Rectal cancer, monitor * * * * Physician Interpretation * * * * RESULT: EXAMINATION: CHEST CT WITH CONTRAST CLINICAL HISTORY: Rectal cancer, monitor Technique: Spiral CT acquisition of the chest from the thoracic inlet to the upper abdomen following IV contrast. MQ: CTCWR_5 Contrast: 100 mL Omnipaque [address] Dose-Length Product: 664 mGy*cm CT Dose Reduction Employed: Automated exposure control (AEC) Comparison: 10/01/2023 RESULT: Lines, tubes, and devices: None. Lung parenchyma and airways: Trachea and central airways are patent. No consolidative opacity. Unchanged 3 mm right lower lobe nodule (image 98). Unchanged 2 mm nodule right lower lobe (image 104). No new suspicious appearing pulmonary nodules. Pleural space: No pleural effusion or pneumothorax. Lower neck, lymph nodes, and mediastinum: No axillary, supraclavicular, mediastinal or hilar lymphadenopathy by CT size criteria. Heart, pericardium, and thoracic vessels: The heart is normal in size. No pericardial effusion. The thoracic aorta and main pulmonary artery are normal in caliber. Bones/Soft Tissues: No aggressive osseous lesions. Upper abdomen: Dedicated CT imaging of the abdomen and pelvis was performed concurrently and is dictated separately. Dental Technician (topogram) images: Unremarkable. IMPRESSION: No metastatic disease in the chest. Transcribe Date/Time: Oct 28 2024 12:47P Dictated by: AGUSTÍN CHAVEZ MD This examination was interpreted and the report reviewed and electronically signed by: AGUSTÍN CHAVEZ MD on Oct 28 2024 12:59PM EST Thank you for allowing us to participate in the care of your patient. Should there be any questions regarding this interpretation, please call [phone]. If you are unable to reach us at the number above, please feel free to contact [facility] at [phone]. [id number] N Normal [facility] CT Chest W contrast John IMPRESSION: No metastatic disease in the chest. Transcribe Date/Time: Oct 28 2024 12:47P Dictated by: AGUSTÍN CHAVEZ MD This examination was interpreted and the report reviewed and electronically signed by: AGUSTÍN CHAVEZ MD on Oct 28 2024 12:59PM EST Thank you for allowing us to participate in the care of your patient. Should there be any questions regarding this interpretation, please call [phone]. If you are unable to reach us at the number above, please feel free to contact [facility] at [phone]. DIVISION OF RADIOLOGY * * *Final Report* * * DATE OF EXAM: Oct 28 2024 11:22AM [facility] 0539 - CT CHEST W IVCON / PROCEDURE REASON: Rectal cancer, monitor * * * * Physician Interpretation * * * * RESULT: EXAMINATION: CHEST CT WITH CONTRAST CLINICAL HISTORY: Rectal cancer, monitor Technique: Spiral CT acquisition of the chest from the thoracic inlet to the upper abdomen following IV contrast. MQ: CTCWR_5 Contrast: 100 mL Omnipaque [address] Dose-Length Product: 664 mGy*cm CT Dose Reduction Employed: Automated exposure control (AEC) Comparison: 10/01/2023 RESULT: Lines, tubes, and devices: None. Lung parenchyma and airways: Trachea and central airways are patent. No consolidative opacity. Unchanged 3 mm right lower lobe nodule (image 98). Unchanged 2 mm nodule right lower lobe (image 104). No new suspicious appearing pulmonary nodules. Pleural space: No pleural effusion or pneumothorax. Lower neck, lymph nodes, and mediastinum: No axillary, supraclavicular, mediastinal or hilar lymphadenopathy by CT size criteria. Heart, pericardium, and thoracic vessels: The heart is normal in size. No pericardial effusion. The thoracic aorta and main pulmonary artery are normal in caliber. Bones/Soft Tissues: No aggressive osseous lesions. Upper abdomen: Dedicated CT imaging of the abdomen and pelvis was performed concurrently and is dictated separately. Dental Technician (topogram) images: Unremarkable. DIVISION OF RADIOLOGY Provider, Vincenzo Hoskins [facility] - 10/28/2024 * * *Final Report* * * DATE OF EXAM: Oct 28 2024 11:22AM [facility] 0539 - CT CHEST W IVCON / PROCEDURE REASON: Rectal cancer, monitor * * * * Physician Interpretation * * * * RESULT: EXAMINATION: CHEST CT WITH CONTRAST CLINICAL HISTORY: Rectal cancer, monitor Technique: Spiral CT acquisition of the chest from the thoracic inlet to the upper abdomen following IV contrast. MQ: CTCWR_5 Contrast: 100 mL Omnipaque [address] Dose-Length Product: 664 mGy*cm CT Dose Reduction Employed: Automated exposure control (AEC) Comparison: 10/01/2023 RESULT: Lines, tubes, and devices: None. Lung parenchyma and airways: Trachea and central airways are patent. No consolidative opacity. Unchanged 3 mm right lower lobe nodule (image 98). Unchanged 2 mm nodule right lower lobe (image 104). No new suspicious appearing pulmonary nodules. Pleural space: No pleural effusion or pneumothorax. Lower neck, lymph nodes, and mediastinum: No axillary, supraclavicular, mediastinal or hilar lymphadenopathy by CT size criteria. Heart, pericardium, and thoracic vessels: The heart is normal in size. No pericardial effusion. The thoracic aorta and main pulmonary artery are normal in caliber. Bones/Soft Tissues: No aggressive osseous lesions. Upper abdomen: Dedicated CT imaging of the abdomen and pelvis was performed concurrently and is dictated separately. Dental Technician (topogram) images: Unremarkable. IMPRESSION IMPRESSION: No metastatic disease in the chest. Transcribe Date/Time: Oct 28 2024 12:47P Dictated by: AGUSTÍN CHAVEZ MD This examination was interpreted and the report reviewed and electronically signed by: AGUSTÍN CHAVEZ MD on Oct 28 2024 12:59PM EST Thank you for allowing us to participate in the care of your patient. Should there be any questions regarding this interpretation, please call [phone]. If you are unable to reach us at the number above, please feel free to contact [facility] at [phone]. [facility] CT Chest W contrast IVOrdere d By: [facility] Provider on 10-28-2024 [facility] Comprehensive metabolic 2000 panelOrdered By: Mando Underwood on 10-28-2024 Albumin [Mass/Vol] 4.5 g/dL 3.9 - 4.9 g/dL [facility] ALP [Catalytic activity/Vol] 114 U/L 34 - 123 U/L [facility] ALT [Catalytic activity/Vol] 25 U/L 7 - 38 U/L [facility] Anion gap [Moles/Vol] 12 mmol/L 8 - 15 mmol/L [facility] AST [Catalytic activity/Vol] 24 U/L 13 - 35 U/L [facility] Bilirubin [Mass/Vol] 0.2 mg/dL 0.2 - 1 .3 mg/dL [facility] Calcium [Mass/Vol] 9.8 mg/dL 8.5 - 10. 2 mg/dL [facility] Chloride [Moles/Vol] 101 mmol/L 98 - 10 7 mmol/L [facility] CO2 [Moles/Vol] 26 mmol/L 22 - 30 mmol/L [facility] Creatinine [Mass/Vol] 0.63 mg/dL 0.58 - 0.96 mg/dL [facility] GFR/1.73 sq M.predicted among non-blacks MDRD (S/P/Bld) [Vol rate/Area] 105 mL/min/{1.73_m2} - PINF [facility] Comment on above: Estimated Glomerular Filtration [...] not accurately reflect actual GFR. Glucose [Mass/Vol] 107 mg/dL High 74 - 99 mg/dL [facility] Comment on above: The [place] Diab[employer] Association (ADA) provides guidance for [...] Standards of Medical Care in Diabetes 2016, [place] [employer]. Diabetes Care. 2016.39(Suppl 1). Interpretation and review of laboratory results Abnormal [facility] Potassium [Moles/Vol] 3.8 mmol/L 3.7 - 5.1 mmol/L [facility] Protein [Mass/Vol] 7.6 g/dL 6.3 - 8.0 g/dL [facility] Sodium [Moles/Vol] 139 mmol/L 136 - 144 mmol/L [facility] Urea nitrogen [Mass/Vol] 19 mg/dL 7 - 21 mg/dL [facility] Comprehensive metabolic 2000 panelon 10-28-2024 Albumin [Mass/Vol] 4.5 g/dL Normal 3.9-4.9 [facility] Comment on above: Order Comment: Speci men Type: BLOOD SPECIMENOrdering Facility: [facility] Address: [address] [place] [address] Performed By: #### 2 4323-8 ####[facility] LABCLIA [id number] [place] [address] ALP [Catalytic activity/Vol] 114 U/L Normal 34-123 [facility] Comment on above: Order Comment: Speci men Type: BLOOD SPECIMENOrdering Facility: [facility] Address: [address] [place] [address] Performed By: #### 2 4323-8 ####[facility] LABCLIA [id number] [place] [address] ALT [Catalytic activity/Vol] 25 U/L Normal 7-38 [facility] Comment on above: Order Comment: Speci men Type: BLOOD SPECIMENOrdering Facility: [facility] Address: [address] [place] [address] Performed By: #### 2 4323-8 ####[facility] LABCLIA [id number] [place] [address] Anion gap [Moles/Vol] 12 mmol/L Normal 8-15 [facility] Comment on above: Order Comment: Speci men Type: BLOOD SPECIMENOrdering Facility: [facility] Address: [address] [place] [address] Performed By: #### 2 4323-8 ####[facility] LABCLIA [id number] [place] [address] AST [Catalytic activity/Vol] 24 U/L Normal 13-35 [facility] Comment on above: Order Comment: Speci men Type: BLOOD SPECIMENOrdering Facility: [facility] Address: [address] [place] [address] Performed By: #### 2 4323-8 ####[facility] LABCLIA [id number] [place] [address] Bilirubin [Mass/Vol] 0.2 mg/dL Normal 0.2-1.3 [facility] Comment on above: Order Comment: Speci men Type: BLOOD SPECIMENOrdering Facility: [facility] Address: [address] [place] [address] Performed By: #### 2 4323-8 ####[facility] LABCLIA [id number] [place] [address] Calcium [Mass/Vol] 9.8 mg/dL Normal 8.5-10.2 [facility] Comment on above: Order Comment: Speci men Type: BLOOD SPECIMENOrdering Facility: [facility] Address: [address] [place] [address] Performed By: #### 2 4323-8 ####[facility] LABCLIA [id number] [place] [address] Chloride [Moles/Vol] 101 mmol/L Normal 98-107 [facility] Comment on above: Order Comment: Speci men Type: BLOOD SPECIMENOrdering Facility: [facility] Address: [address] [place] [address] Performed By: #### 2 4323-8 ####[facility] LABCLIA [id number] [place] [address] CO2 [Moles/Vol] 26 mmol/L Normal 22-30 [facility] Comment on above: Order Comment: Speci men Type: BLOOD SPECIMENOrdering Facility: [facility] Address: [address] [place] [address] Performed By: #### 2 4323-8 ####[facility] LABCLIA [id number] [place] [address] Creatinine [Mass/Vol] 0.63 mg/dL Normal 0.58-0.96 [facility] Comment on above: Order Comment: Speci men Type: BLOOD SPECIMENOrdering Facility: [facility] Address: [address] [place] [address] Performed By: #### 2 4323-8 ####[facility] LABCLIA [id number] [place] [address] Creatinine and Glomerular filtration rate.predicted panel (S/P/Bld) 105 mL/min/1.73m??? Normal >=60 [facility] Comment on above: Order Comment: Shashi love Type: BLOOD SPECIMENOrdering Facility: [facility] Address: [address] [place] [address] Result Comment: Alma mated Glomerular Filtration Rate [...] actual GFR. Performed By: #### 2 4323-8 ####[facility] LABCLIA [id number] [place] [address] Glucose [Mass/Vol] 107 mg/dL High 74-99 [facility] Comment on above: Order Comment: Shashi love Type: BLOOD SPECIMENOrdering Facility: [facility] Address: [address] [place] [address] Result Comment: The [place] [employer] (ADA) provides guidance for cutoff [...] Standards of Medical Care in Diabetes 2016, [place] [employer]. Diabetes Care. 2016.39(Suppl 1). Performed By: #### 2 4323-8 ####[facility] LABCLIA [id number] [place] [address] Potassium [Moles/Vol] 3.8 mmol/L Normal 3.7-5.1 [facility] Comment on above: Order Comment: Speci men Type: BLOOD SPECIMENOrdering Facility: [facility] Address: [address] [place] [address] Performed By: #### 2 4323-8 ####[facility] LABCLIA [id number] [place] [address] Protein [Mass/Vol] 7.6 g/dL Normal 6.3-8.0 [facility] Comment on above: Order Comment: Speci men Type: BLOOD SPECIMENOrdering Facility: [facility] Address: [address] [place] [address] Performed By: #### 2 4323-8 ####[facility] LABCLIA [id number] [place] [address] Sodium [Moles/Vol] 139 mmol/L Normal 136-144 [facility] Comment on above: Order Comment: Speci men Type: BLOOD SPECIMENOrdering Facility: [facility] Address: [address] [place] [address] Performed By: #### 2 4323-8 ####[facility] LABCLIA [id number] [place] [address] Urea nitrogen [Mass/Vol] 19 mg/dL Normal 7-21 [facility] Comment on above: Order Comment: Speci men Type: BLOOD SPECIMENOrdering Facility: [facility] Address: [address] [place] [address] Performed By: #### 2 4323-8 ####[facility] LABIA [id number] [place] [address] No Panel Informationon 10-28 Radiology Study observation (narrative) [facility] MR Pelvis WO contraston - IMPRESSION: Since 09/29/2023, post treatment primary tumor assessment: - Stable appearance of fibrosis/scarring at the site of the previously treated anorectal neoplasm, with no evidence of residual/recurrent disease. 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 Prior chemotherapy or radiation: Yes COMPARISON: 09/29/2023-05/21/2022. TECHNIQUE: Magnet: Siemens Altea 1.5T scanner. Multiplanar MRI with multiple sequences before and after contrast. Contrast: IV: 8 ml of Elucirem Rectal: 60 ml of Surgilube RESULT: TREATED PRIMARY TUMOR CHARACTERISTICS (Compare to pre-treatment): DWI (with associated low ADC) ? restricted diffusion and low ADC in tumor or tumor bed: Absent. MRI-T2W: Entirely dark T2 signal/scar. T2 bright mucin (cannot distinguish between cellular and acellular mucin): Absent. Description: Stable appearance of T2 dark fibrosis/scarring along the right posterolateral wall of the lower rectum at the site of the previously treated neoplasm. The T2 ark tissue again extends beyond the rectal wall abutting the mesorectal fascia and right levator muscle (6;34- 4;13-15). TUMOR DEPOSITS AND EXTRAMURAL VASCULAR INVASION (EMVI): Tumor deposits:(separate from metastatic lymph nodes): No. EMVI: No (none evident pre-treatment). T4 disease interval change: N/A LYMPH NODES: Mesorectal/superior rectal lymph nodes and/or tumor deposits: N0 (no visible lymph nodes/deposits or only < 5 mm short axis) Suspicious extra mesorectal lymph nodes: None. OTHER STRUCTURES/ ORGANS INVOLVED: None. OTHER FINDINGS: None The study was interpreted by Dr Nava, a member of the rectal cancer multidisciplinary tumor board. 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 Prior chemotherapy or radiation: Yes COMPARISON: 09/29/2023-05/21/2022. TECHNIQUE: Magnet: Siemens Altea 1.5T scanner. Multiplanar MRI with multiple sequences before and after contrast. Contrast: IV: 8 ml of Elucirem Rectal: 60 ml of Surgilube RESULT: TREATED PRIMARY TUMOR CHARACTERISTICS (Compare to pre-treatment): DWI (with associated low ADC) ? restricted diffusion and low ADC in tumor or tumor bed: Absent. MRI-T2W: Entirely dark T2 signal/scar. T2 bright mucin (cannot distinguish between cellular and acellular mucin): Absent. Description: Stable appearance of T2 dark fibrosis/scarring along the right posterolateral wall of the lower rectum at the site of the previously treated neoplasm. The T2 ark tissue again extends beyond the rectal wall abutting the mesorectal fascia and right levator muscle (6;34- 4;13-15). TUMOR DEPOSITS AND EXTRAMURAL VASCULAR INVASION (EMVI): Tumor deposits:(separate from metastatic lymph nodes): No. EMVI: No (none evident pre-treatment). T4 disease interval change: N/A LYMPH NODES: Mesorectal/superior rectal lymph nodes and/or tumor deposits: N0 (no visible lymph nodes/deposits or only < 5 mm short axis) Suspicious extra mesorectal lymph nodes: None. OTHER STRUCTURES/ ORGANS INVOLVED: None. OTHER FINDINGS: None The study was interpreted by Dr Nava, a member of the rectal cancer multidisciplinary tumor board. IMPRESSION IMPRESSION: Since 09/29/2023, post treatment primary tumor assessment: - Stable appearance of fibrosis/scarring at the site of the previously treated anorectal neoplasm, with no evidence of residual/recurrent disease. 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 Prior chemotherapy or radiation: Yes COMPARISON: 09/29/2023-05/21/2022. TECHNIQUE: Magnet: Siemens Altea 1.5T scanner. Multiplanar MRI with multiple sequences before and after contrast. Contrast: IV: 8 ml of Elucirem Rectal: 60 ml of Surgilube RESULT: TREATED PRIMARY TUMOR CHARACTERISTICS (Compare to pre-treatment): DWI (with associated low ADC) ? restricted diffusion and low ADC in tumor or tumor bed: Absent. MRI-T2W: Entirely dark T2 signal/scar. T2 bright mucin (cannot distinguish between cellular and acellular mucin): Absent. Description: Stable appearance of T2 dark fibrosis/scarring along the right posterolateral wall of the lower rectum at the site of the previously treated neoplasm. The T2 ark tissue again extends beyond the rectal wall abutting the mesorectal fascia and right levator muscle (6;34- 4;13-15). TUMOR DEPOSITS AND EXTRAMURAL VASCULAR INVASION (EMVI): Tumor deposits:(separate from metastatic lymph nodes): No. EMVI: No (none evident pre-treatment). T4 disease interval change: N/A LYMPH NODES: Mesorectal/superior rectal lymph nodes and/or tumor deposits: N0 (no visible lymph nodes/deposits or only < 5 mm short axis) Suspicious extra mesorectal lymph nodes: None. OTHER STRUCTURES/ ORGANS INVOLVED: None. OTHER FINDINGS: None The study was interpreted by Dr Nava, a member of the rectal cancer multidisciplinary tumor board. IMPRESSION: Since 09/29/2023, post treatment primary tumor assessment: - Stable appearance of fibrosis/scarring at the site of the previously treated anorectal neoplasm, with no evidence of residual/recurrent disease. Transcribed Using Voice Recognition Transcribe Date/Time: Oct 26 2024 12:14P Dictated by: ANNE MARIE NAVA MD This examination was interpreted and the report reviewed and electronically signed by: ANNE MARIE NAVA MD on Oct 26 2024 12:44PM EST [id number] N [facility] MM TOMOSYNTHESIS SCREENING B Ion 10-22-2024 [place] [address] Mammography Report Signed Patient: KIRT REYNA MR#: [id number] : 1970 Acct:[id number] Age/Sex: 54 / F ADM Date: 10/22/24 Loc: MAMMO Attending Dr: Pérez Hubbard D.O. Ordering Physician: Pérez Hubbard D.O. Results: Date of Service: 10/22/24 Follow Up: Procedure(s): MM tomosynthesis screening BI Accession Number(s): [id number] cc: Pérez Hubbard D.O.; Sondra Liu M.D. Patient Name: KIRT REYNA MR#: [id number] : 1970 Exam Date: 10/22/2024 Ordering Doctor: [...] Treatments None Family Cancers None LOCATION: [facility] BREAST COMPOSITION: The breasts are extremely dense, [...] Orellana D.O. Signed By: 10/22/24 1226 DD/ 24 TD/TT: [employer] Experimental Mechanic: [facility] Radiology, Radiologist, MD - 10/22/2024 [place] [address] Mammography Report Signed Patient: KIRT REYNA MR#: [id number] : 1970 Acct:[id number] Age/Sex: 54 / F ADM Date: 10/22/24 Loc: MAMMO Attending Dr: Pérez Hubbard D.O. Ordering Physician: Pérez Hubbard D.O. Results: Date of Service: 10/22/24 Follow Up: Procedure(s): MM tomosynthesis screening BI Accession Number(s): [id number] cc: Pérez Hubbard D.O.; Sondra Liu M.D. Patient Name: KIRT REYNA MR#: [id number] : 1970 Exam Date: 10/22/2024 Ordering Doctor: [...] Treatments None Family Cancers None LOCATION: [facility] BREAST COMPOSITION: The breasts are extremely dense, [...] Orellana D.O. Signed By: 10/22/24 1226 DD/ 24 TD/TT: [employer] Experimental Mechanic: [facility] Study observation (narrative) [facility] [employer] MM TOMOSYNTHESIS SCREENING B IOrdered By: Radiologist Radiology on 10-22-2024 [facility] [employer] Work Phone: [email or web address] 05-28-2024 CNOV Office Visit ([facility] ) KIRT REYNA ([id number]) 1970 F Date Time Provider Department 05/28/24 3:40 PM PHIL DOUGHERTY [facility] During your visit today, we recorded the [...] exam reveals no gross blood or masses School Counsellor present: Yes, Padmini Garcia Anoscopy: The patient was placed in chest-knee position. After digital exam with a lubricated finger, the scope was easily inserted. Posterior scar noted. Otherwise normal mucosa was noted. Anoscopy completed. The sensitive examination was discussed with the Patient or Patient's Authorized Youth Leader. As applicable, any other physician, advance practice provider, medical student, or other health professional student that will be observing or involved in the sensitive examination for educational or training purposes was discussed with the Patient or Authorized Youth Leader. The Patient or Authorized Youth Leader has agreed to proceed with the sensitive [...] MD Colorectal Surgery Referring Provider: PHIL DOUGHERTY [[id number]] Allergies As of Date: 05/28/2024 Noted Allergy Reaction PENICILLIN G 08/23/2013 16 - Unknown SULFA (SULFONAMIDE ANTIBIOTICS) 08/23/2013 16 - Unknown Date Reviewed: 05/28/2024 Reviewed by: Nadya Brunner O[facility] - Fully Assessed Primary Visit Diagnosis:Encounter for follow-up surveillance of anal cancer (more content not included)... Normal [facility] CBC W Auto Differential pane l (Bld)on 04-26-2024 Basophils (Bld) [#/Vol] 10*3/uL Normal <0.11 [facility] Comment on above: Order Comment: Speci men Type: BLOOD SPECIMENOrdering Facility: [facility] Address: [address] [place] [address] Performed By: #### 5 7021-8 ####[facility] LABCLIA [id number] [place] [address] Basophils/100 WBC (Bld) 0.2 % Normal [facility] Comment on above: Order Comment: Speci men Type: BLOOD SPECIMENOrdering Facility: [facility] Address: [address] [place] [address] Performed By: #### 5 7021-8 ####[facility] LABCLIA [id number] [place] [address] Differential cell count method Nom (Bld) Auto Normal [facility] Comment on above: Order Comment: Speci men Type: BLOOD SPECIMENOrdering Facility: [facility] Address: [address] [place] [address] Performed By: #### 5 7021-8 ####[facility] LABCLIA [id number] [place] [address] Eosinophils (Bld) [#/Vol] 0.09 10*3/uL Normal <0.46 [facility] Comment on above: Order Comment: Speci men Type: BLOOD SPECIMENOrdering Facility: [facility] Address: [address] [place] [address] Performed By: #### 5 7021-8 ####[facility] LABCLIA [id number] [place] [address] Eosinophils/100 WBC (Bld) 1.9 % Normal [facility] Comment on above: Order Comment: Speci men Type: BLOOD SPECIMENOrdering Facility: [facility] Address: [address] [place] [address] Performed By: #### 5 7021-8 ####[facility] LABCLIA [id number] [place] [address] Erythrocyte distribution width (RBC) [Ratio] 12.9 % Normal 11.5-15.0 [facility] Comment on above: Order Comment: Speci men Type: BLOOD SPECIMENOrdering Facility: [facility] Address: [address] [place] [address] Performed By: #### 5 7021-8 ####[facility] LABCLIA [id number] [place] [address] Hematocrit (Bld) [Volume fraction] 39.5 % Normal 36.0-46.0 [facility] Comment on above: Order Comment: Speci men Type: BLOOD SPECIMENOrdering Facility: [facility] Address: [address] [place] [address] Performed By: #### 5 7021-8 ####[facility] LABCLIA [id number] [place] [address] Hemoglobin (Bld) [Mass/Vol] 13.5 g/dL Normal 11.5-15.5 [facility] Comment on above: Order Comment: Speci men Type: BLOOD SPECIMENOrdering Facility: [facility] Address: [address] [place] [address] Performed By: #### 5 7021-8 ####[facility] LABCLIA [id number] [place] [address] Immature granulocytes (Bld) [#/Vol] 10*3/uL Normal <0.10 [facility] Comment on above: Order Comment: Speci men Type: BLOOD SPECIMENOrdering Facility: [facility] Address: [address] [place] [address] Performed By: #### 5 7021-8 ####[facility] LABCLIA [id number] [place] [address] Immature granulocytes/100 WBC (Bld) 0.2 % Normal [facility] Comment on above: Order Comment: Speci men Type: BLOOD SPECIMENOrdering Facility: [facility] Address: [address] [place] [address] Performed By: #### 5 7021-8 ####[facility] LABCLIA [id number] [place] [address] Lymphocytes (Bld) [#/Vol] 1.26 10*3/uL Normal 1.00-4.00 [facility] Comment on above: Order Comment: Speci men Type: BLOOD SPECIMENOrdering Facility: [facility] Address: [address] [place] [address] Performed By: #### 5 7021-8 ####[facility] LABCLIA [id number] [place] [address] Lymphocytes/100 WBC (Bld) 26.4 % Normal [facility] Comment on above: Order Comment: Speci men Type: BLOOD SPECIMENOrdering Facility: [facility] Address: [address] [place] [address] Performed By: #### 5 7021-8 ####[facility] LABCLIA [id number] [place] [address] MCH (RBC) [Entitic mass] 30.1 pg Normal 26.0-34.0 [facility] Comment on above: Order Comment: Speci men Type: BLOOD SPECIMENOrdering Facility: [facility] Address: [address] [place] [address] Performed By: #### 5 7021-8 ####[facility] LABCLIA [id number] [place] [address] MCHC (RBC) [Mass/Vol] 34.2 g/dL Normal 30.5-36.0 [facility] Comment on above: Order Comment: Speci men Type: BLOOD SPECIMENOrdering Facility: [facility] Address: [address] [place] [address] Performed By: #### 5 7021-8 ####[facility] LABCLIA [id number] [place] [address] MCV (RBC) [Entitic vol] 88.2 fL Normal 80.0-100.0 [facility] Comment on above: Order Comment: Speci men Type: BLOOD SPECIMENOrdering Facility: [facility] Address: [address] [place] [address] Performed By: #### 5 7021-8 ####[facility] LABIA [id number] [place] [address] Monocytes (Bld) [#/Vol] 0.45 10*3/uL Normal <0.87 [facility] Comment on above: Order Comment: Speci men Type: BLOOD SPECIMENOrdering Facility: [facility] Address: [address] [place] [address] Performed By: #### 5 7021-8 ####[facility] LABCLIA [id number] [place] [address] Monocytes/100 WBC (Bld) 9.4 % Normal [facility] Comment on above: Order Comment: Speci men Type: BLOOD SPECIMENOrdering Facility: [facility] Address: [address] [place] [address] Performed By: #### 5 7021-8 ####[facility] LABCLIA [id number] [place] [address] Neutrophils (Bld) [#/Vol] 2.95 10*3/uL Normal 1.45-7.50 [facility] Comment on above: Order Comment: Speci men Type: BLOOD SPECIMENOrdering Facility: [facility] Address: [address] [place] [address] Performed By: #### 5 7021-8 ####[facility] LABCLIA [id number] [place] [address] Neutrophils/100 WBC (Bld) 61.9 % Normal [facility] Comment on above: Order Comment: Speci men Type: BLOOD SPECIMENOrdering Facility: [facility] Address: [address] [place] [address] Performed By: #### 5 7021-8 ####[facility] LABCLIA [id number] [place] [address] Nucleated RBC (Bld) [#/Vol] 10*3/uL Normal <0.01 [facility] Comment on above: Order Comment: Speci men Type: BLOOD SPECIMENOrdering Facility: [facility] Address: [address] [place] [address] Performed By: #### 5 7021-8 ####[facility] LABCLIA [id number] [place] [address] Nucleated RBC/100 WBC (Bld) [Ratio] 0.0 /100 WBC Normal [facility] Comment on above: Order Comment: Speci men Type: BLOOD SPECIMENOrdering Facility: [facility] Address: [address] [place] [address] Performed By: #### 5 7021-8 ####[facility] LABCLIA [id number] [place] [address] Platelet mean volume (Bld) [Entitic vol] 9.9 fL Normal 9.0-12.7 [facility] Comment on above: Order Comment: Speci men Type: BLOOD SPECIMENOrdering Facility: [facility] Address: [address] [place] [address] Performed By: #### 5 7021-8 ####[facility] LABCLIA [id number] [place] [address] Platelets (Bld) [#/Vol] 236 10*3/uL Normal 150-400 [facility] Comment on above: Order Comment: Speci men Type: BLOOD SPECIMENOrdering Facility: [facility] Address: [address] [place] [address] Performed By: #### 5 7021-8 ####[facility] LABIA [id number] [place] [address] RBC (Bld) [#/Vol] 4.48 10*6/uL Normal 3.90-5.20 [facility] Comment on above: Order Comment: Speci men Type: BLOOD SPECIMENOrdering Facility: [facility] Address: [address] [place] [address] Performed By: #### 5 7021-8 ####[facility] LABCLIA [id number] [place] [address] WBC (Bld) [#/Vol] 4.77 10*3/uL Normal 3.70-11.00 [facility] Comment on above: Order Comment: Speci men Type: BLOOD SPECIMENOrdering Facility: [facility] Address: [address] [place] [address] Performed By: #### 5 7021-8 ####[facility] [id number] [place] [address] CNOVSPon 04-26-2024 CNOVSP Visit (SP) Office ([place]) KIRT REYNA ([id number]) 1970 F Date Time Provider Department 04/26/24 3:00 PM GERARDO MCKINNON During your visit today, we recorded the following information about you: Temperature Pulse Respiration Blood pressure 97.9 degrees 89/minute 16/minute 129/72 Weight 82.2 kg Gerardo Mckinnon APRN.CNP 04/26/2024 9:05 PM Signed NAME: Kirt Reyna CLINIC NO.: [id number] DATE OF SERVICE: APRIL 26, 2024 (Dean) Some elements in this clinic note that are critical to medical decision making have been carefully reviewed and included from a prior clinic note dated: October 27, 2023 (Sangeetha) Referring Provider: Dr. Phil Dougherty Additional Clinicians involved in Kirtfelipe Reyna's care: Dr. Sondra Liu, Dr. Vitaly [...] Visit, Lis (more content not included)... Normal [facility] Comprehensive metabolic 2000 panelon 04-26-2024 Albumin [Mass/Vol] 4.5 g/dL Normal 3.9-4.9 [facility] Comment on above: Order Comment: Speci men Type: BLOOD SPECIMENOrdering Facility: [facility] Address: [address] [place] [address] Performed By: #### 2 4323-8 ####[facility] LABCLIA [id number] [place] [address] ALP [Catalytic activity/Vol] 107 U/L Normal 34-123 [facility] Comment on above: Order Comment: Speci men Type: BLOOD SPECIMENOrdering Facility: [facility] Address: [address] [place] [address] Performed By: #### 2 4323-8 ####[facility] LABCLIA [id number] [place] [address] ALT [Catalytic activity/Vol] 19 U/L Normal 7-38 [facility] Comment on above: Order Comment: Speci men Type: BLOOD SPECIMENOrdering Facility: [facility] Address: [address] [place] [address] Performed By: #### 2 4323-8 ####[facility] LABCLIA [id number] [place] [address] Anion gap [Moles/Vol] 12 mmol/L Normal 8-15 [facility] Comment on above: Order Comment: Speci men Type: BLOOD SPECIMENOrdering Facility: [facility] Address: [address] [place] [address] Performed By: #### 2 4323-8 ####[facility] LABCLIA [id number] [place] [address] AST [Catalytic activity/Vol] 22 U/L Normal 13-35 [facility] Comment on above: Order Comment: Speci men Type: BLOOD SPECIMENOrdering Facility: [facility] Address: [address] [place] [address] Performed By: #### 2 4323-8 ####[facility] LABCLIA [id number] [place] [address] Bilirubin [Mass/Vol] 0.3 mg/dL Normal 0.2-1.3 [facility] Comment on above: Order Comment: Speci men Type: BLOOD SPECIMENOrdering Facility: [facility] Address: [address] [place] [address] Performed By: #### 2 4323-8 ####[facility] LABCLIA [id number] [place] [address] Calcium [Mass/Vol] 9.4 mg/dL Normal 8.5-10.2 [facility] Comment on above: Order Comment: Speci men Type: BLOOD SPECIMENOrdering Facility: [facility] Address: [address] [place] [address] Performed By: #### 2 4323-8 ####[facility] LABCLIA [id number] [place] [address] Chloride [Moles/Vol] 101 mmol/L Normal 98-107 [facility] Comment on above: Order Comment: Speci men Type: BLOOD SPECIMENOrdering Facility: [facility] Address: [address] [place] [address] Performed By: #### 2 4323-8 ####[facility] LABCLIA [id number] [place] [address] CO2 [Moles/Vol] 26 mmol/L Normal 22-30 [facility] Comment on above: Order Comment: Speci men Type: BLOOD SPECIMENOrdering Facility: [facility] Address: [address] [place] [address] Performed By: #### 2 4323-8 ####[facility] LABCLIA [id number] [place] [address] Creatinine [Mass/Vol] 0.69 mg/dL Normal 0.58-0.96 [facility] Comment on above: Order Comment: Speci men Type: BLOOD SPECIMENOrdering Facility: [facility] Address: [address] [place] [address] Performed By: #### 2 4323-8 ####[facility] LABCLIA [id number] [place] [address] Creatinine and Glomerular filtration rate.predicted panel (S/P/Bld) 103 mL/min/1.73m??? Normal >=60 [facility] Comment on above: Order Comment: Speci men Type: BLOOD SPECIMENOrdering Facility: [facility] Address: [address] [place] [address] Result Comment: Alma mated Glomerular Filtration Rate [...] actual GFR. Performed By: #### 2 4323-8 ####[facility] LABCLIA [id number] [place] [address] Glucose [Mass/Vol] 101 mg/dL High 74-99 [facility] Comment on above: Order Comment: Speci men Type: BLOOD SPECIMENOrdering Facility: [facility] Address: [address] [place] [address] Result Comment: The [place] Diabetes Association (ADA) provides guidance for cutoff [...] Standards of Medical Care in Diabetes 2016, [place] [employer]. Diabetes Care. 2016.39(Suppl 1). Performed By: #### 2 4323-8 ####[facility] LABCLIA [id number] [place] [address] Potassium [Moles/Vol] 4.1 mmol/L Normal 3.7-5.1 [facility] Comment on above: Order Comment: Speci men Type: BLOOD SPECIMENOrdering Facility: [facility] Address: [address] [place] [address] Performed By: #### 2 4323-8 ####[facility] LABCLIA [id number] [place] [address] Protein [Mass/Vol] 7.6 g/dL Normal 6.3-8.0 [facility] Comment on above: Order Comment: Speci men Type: BLOOD SPECIMENOrdering Facility: [facility] Address: [address] [place], [place] [address] Performed By: #### 2 4323-8 ####[facility] LABCLIA [id number] [place] [address] Sodium [Moles/Vol] 139 mmol/L Normal 136-144 [facility] Comment on above: Order Comment: Speci men Type: BLOOD SPECIMENOrdering Facility: [facility] Address: [address] [place] [address] Performed By: #### 2 4323-8 ####[facility] LABCLIA [id number] [place] [address] Urea nitrogen [Mass/Vol] 19 mg/dL Normal 7-21 [facility] Comment on above: Order Comment: Speci men Type: BLOOD SPECIMENOrdering Facility: [facility] Address: [address] [place] [address] Performed By: #### 2 4323-8 ####[facility] LABCLIA [id number] [place] [address] MAKIOVon 12-12-2023 CNOV Office Visit ([facility] ) KIRT REYNA ([id number]) 1970 F Date Time Provider Department 12/12/23 2:00 PM PHIL DOUGHERTY [facility] During your visit today, we recorded the following information about you: Temperature Pulse Blood pressure Weight 97.3 degrees 81/minute 140/75 80.3 kg Height 1.702 m Phil Dougherty MD 12/12/2023 2:11 PM Signed COLORECTAL SURGERY December 12, 2023 Kirt A Michelle 53 year old Chief Complaint: diarrhea, anal [...] exam reveals no gross blood or masses School Counsellor present: Yes, Padmini Garcia Anoscopy: The patient [...] by hans (more content not included)... Normal [facility] CT Chest WO contraston 09-30 IMPRESSION: 1. [...] any questions regarding this interpretation, please call [phone]. If you are unable to reach us at the number above, please feel free to contact [facility]iology at [phone]. DIVISION OF RADIOLOGY * * *Final Report* * * DATE OF EXAM: Oct 01 2023 10:43AM [facility] 0541 - CT CHEST WO [...] No abnormality in the imaged upper abdomen. Dental Technician (topogram) images: No additional findings. DIVISION OF RADIOLOGY Provider, [facility] [place] - 10/01/2023 * * *Final Report* * * DATE OF EXAM: Oct 01 2023 10:43AM [facility] 0541 - CT CHEST WO [...] No abnormality in the imaged upper abdomen. Dental Technician (topogram) images: No additional findings. IMPRESSION IMPRESSION: [...] any questions regarding this interpretation, please call [phone]. If you are unable to reach us at the number above, please feel free to contact [facility] at [phone]. [facility] Radiology Study observation (narrative) [facility] CT Chest WO contrastOrdered By: Ccf Provider on 10-01-2023 [facility] No Panel Informationon 09-28 [facility] MRI RECTUM WO/W IVCONon - MRI RECTUM WO/W IVCON * * *Final [...] Yes Other: COMPARISON: 05/21/2022 TECHNIQUE: Magnet: Siemens Dogeo 1.5T scanner. Multiplanar MRI with multiple sequences [...] RESIDUAL VIABLE TUMOR REMAINING. NO PELVIC LYMPHADENOPATHY. [employer] Experimental Mechanic: LEIDY Transcribe Date/Time: Oct 11 2022 5:09P Dictated by : DIMA TREVIZO MD This examination was interpreted and the report reviewed and electronically signed by: DIMA TREVIZO MD on Oct 11 2022 5:39PM EST [id number] N [facility] NURSING PROGon 10-11-2022 NURSING PROG HNO ID: [id number] Author: Melissa Vazquez RN Service: Nursing Author [...] DATE: October 11, 2022 TIME: 2:45 PM [facility] Consultation Noteon 09-04-19 Consultation Note [id number] Normal [facility] CBC W Auto Differential pane l (Bld)on 08-28-2022 Basophils (Bld) [#/Vol] [facility] Basophils/100 WBC (Bld) 0.2 % [facility] Differential cell count method Nom (Bld) Auto [facility] Eosinophils (Bld) [#/Vol] 0.20 10*3/uL [facility] Eosinophils/100 WBC (Bld) 4.0 % [facility] Erythrocyte distribution width (RBC) [Ratio] 13.7 % 11.5 - 15.0 % [facility] Hematocrit (Bld) [Volume fraction] 38.2 % 36.0 - 46.0 % [facility] Hemoglobin (Bld) [Mass/Vol] 12.9 g/dL 11.5 - 15.5 g/dL [facility] Immature granulocytes (Bld) [#/Vol] [facility] Immature granulocytes/100 WBC (Bld) 0.2 % [facility] Interpretation and review of laboratory results Abnormal [facility] Lymphocytes (Bld) [#/Vol] 0.61 10*3/uL Low [facility] Lymphocytes/100 WBC (Bld) 12.2 % [facility] MCH (RBC) [Entitic mass] 30.3 pg 26.0 - 34.0 pg [facility] MCHC (RBC) [Mass/Vol] 33.8 g/dL 30.5 - 36.0 g/dL [facility] MCV (RBC) [Entitic vol] 89.7 fL 80.0 - 100.0 fL [facility] Monocytes (Bld) [#/Vol] 0.43 10*3/uL [facility] Monocytes/100 WBC (Bld) 8.6 % [facility] Neutrophils (Bld) [#/Vol] 3.76 10*3/uL [facility] Neutrophils/100 WBC (Bld) 74.8 % [facility] Nucleated RBC (Bld) [#/Vol] NINF [facility] Nucleated RBC/100 WBC (Bld) [Ratio] 0.0 % /100 WBC [facility] Platelet mean volume (Bld) [Entitic vol] 9.9 fL 9.0 - 12.7 fL [facility] Platelets (Bld) [#/Vol] 222 10*3/uL [facility] RBC (Bld) [#/Vol] 4.26 10*6/uL 3.90 - 5.2 0 m/uL [facility] WBC (Bld) [#/Vol] 5.02 10*3/uL [facility] This is an appended report. These results have been appended to a previously verified report. [facility] CT Abdomen and Pelvis W cont rast John 08-28-2022 IMPRESSION: 1. 1.4 cm right [...] any questions regarding this interpretation, please call [phone]. If you are unable to reach us at the number above, please feel free to contact [facility]iology at [phone]. DIVISION OF RADIOLOGY * * *Final Report* * * DATE OF EXAM: Aug 28 2022 10:54AM [facility] 0530 - CT ABD/PEL W [...] performed concurrently and will be dictated separately. Dental Technician (topogram) images: No additional findings. DIVISION OF RADIOLOGY Provider, [facility] - 08/28/2022 * * *Final Report* * * DATE OF EXAM: Aug 28 2022 10:54AM [facility] 0530 - CT ABD/PEL W [...] performed concurrently and will be dictated separately. Dental Technician (topogram) images: No additional findings. IMPRESSION IMPRESSION: [...] any questions regarding this interpretation, please call [phone]. If you are unable to reach us at the number above, please feel free to contact [facility]iology at [phone]. [facility] CT Abdomen and Pelvis W cont rast IVOrdered By: Ccf Provider on 08-28-[address] [facility] [address] Chest W contrast John IMPRESSION: [...] any questions regarding this interpretation, please call [phone]. If you are unable to reach us at the number above, please feel free to [facility] at [phone]. DIVISION OF RADIOLOGY * * *Final Report* * * DATE OF EXAM: Aug 28 2022 10:54AM [facility] 0539 - CT CHEST W [...] images through the upper abdomen are stable. Dental Technician (topogram) images: No additional findings. DIVISION OF RADIOLOGY Provider, Cherelle Gato [facility] - 08/28/2022 * * *Final Report* * * DATE OF EXAM: Aug 28 2022 10:54AM [facility] 0539 - CT CHEST W [...] images through the upper abdomen are stable. Dental Technician (topogram) images: No additional findings. IMPRESSION IMPRESSION: [...] any questions regarding this interpretation, please call [phone]. If you are unable to reach us at the number above, please feel free to contact [facility] at [phone]. [facility] Comprehensive metabolic 2000 panelOrdered By: Arin Cheatham on 08-28-2022 Albumin [Mass/Vol] 4.6 g/dL 3.9 - 4.9 g/dL [facility] ALP [Catalytic activity/Vol] 90 U/L 34 - 123 U/L [facility] ALT [Catalytic activity/Vol] 20 U/L 7 - 38 U/L [facility] Anion gap [Moles/Vol] 12 mmol/L 9 - 18 mmol/L [facility] AST [Catalytic activity/Vol] 25 U/L 13 - 35 U/L [facility] Bilirubin [Mass/Vol] 0.4 mg/dL 0.2 - 1 .3 mg/dL [facility] Calcium [Mass/Vol] 9.9 mg/dL 8.5 - 10. 2 mg/dL [facility] Chloride [Moles/Vol] 102 mmol/L 97 - 10 5 mmol/L [facility] CO2 [Moles/Vol] 26 mmol/L 22 - 30 mmol/L [facility] Creatinine [Mass/Vol] 0.69 mg/dL 0.58 - 0.96 mg/dL [facility] GFR/1.73 sq M.predicted among non-blacks MDRD (S/P/Bld) [Vol rate/Area] 104 mL/min/{1.73_m2} - PINF [facility] Comment on above: Estimated Glomerular Filtration [...] 113 mg/dL High 74 - 99 mg/dL [facility] Comment on above: The [place] Di[employer] s Association (ADA) provides guidance for [...] Standards of Medical Care in Diabetes 2016, [place] [employer]. Diabetes Care. 2016.39(Suppl 1). Interpretation and review of laboratory results Abnormal [facility] Potassium [Moles/Vol] 4.0 mmol/L 3.7 - 5.1 mmol/L [facility] Protein [Mass/Vol] 7.6 g/dL 6.3 - 8.0 g/dL [facility] Sodium [Moles/Vol] 140 mmol/L 136 - 144 mmol/L [facility] Urea nitrogen [Mass/Vol] 16 mg/dL 7 - 21 mg/dL [facility] No Panel Informationon 08-28 Radiology Study observation (narrative) [facility] CBC panel Auto (Bld)on 08-01 Erythrocyte distribution width (RBC) [Ratio] 13.6 % 11.5 - 15.0 % [facility] Hematocrit (Bld) [Volume fraction] 38.1 % 36.0 - 46.0 % [facility] Hemoglobin (Bld) [Mass/Vol] 12.7 g/dL 11.5 - 15.5 g/dL [facility] MCH (RBC) [Entitic mass] 29.9 pg 26.0 - 34.0 pg [facility] MCHC (RBC) [Mass/Vol] 33.3 g/dL 30.5 - 36.0 g/dL [facility] MCV (RBC) [Entitic vol] 89.6 fL 80.0 - 100.0 fL [facility] Nucleated RBC (Bld) [#/Vol] <0.01 k/uL [facility] Platelet mean volume (Bld) [Entitic vol] 9.6 fL 9.0 - 12.7 fL [facility] Platelets (Bld) [#/Vol] 224 10*3/uL 150 - 400 k/uL [facility] RBC (Bld) [#/Vol] 4.25 10*6/uL 3.90 - 5.2 0 m/uL [facility] WBC (Bld) [#/Vol] 5.32 10*3/uL 3.70 - 11. 00 k/uL [facility] Comprehensive metabolic 2000 panelon 08-01-2022 Albumin [Mass/Vol] 4.6 g/dL 3.9 - 4.9 g/dL [facility] ALP [Catalytic activity/Vol] 88 U/L 34 - 123 U/L [facility] ALT [Catalytic activity/Vol] 19 U/L 7 - 38 U/L [facility] Anion gap [Moles/Vol] 10 mmol/L 9 - 18 mmol/L [facility] AST [Catalytic activity/Vol] 20 U/L 13 - 35 U/L [facility] Bilirubin [Mass/Vol] 0.2 mg/dL 0.2 - 1 .3 mg/dL [facility] Calcium [Mass/Vol] 9.5 mg/dL 8.5 - 10. 2 mg/dL [facility] Chloride [Moles/Vol] 100 mmol/L 97 - 10 5 mmol/L [facility] CO2 [Moles/Vol] 27 mmol/L 22 - 30 mmol/L [facility] Creatinine [Mass/Vol] 0.62 mg/dL 0.58 - 0.96 mg/dL [facility] Estimated Glomerular Filtration Rate 107 mL/min/1.73m >=60 mL/min/1.73m [facility] Glucose [Mass/Vol] 104 mg/dL High 74 - 99 mg/dL [facility] Potassium [Moles/Vol] 3.9 mmol/L 3.7 - 5.1 mmol/L [facility] Protein [Mass/Vol] 7.8 g/dL 6.3 - 8.0 g/dL [facility] Sodium [Moles/Vol] 137 mmol/L 136 - 144 mmol/L [facility] Urea nitrogen [Mass/Vol] 17 mg/dL 7 - 21 mg/dL [facility] CBC W Auto Differential pane l (Bld)on 07-17-2022 Basophils (Bld) [#/Vol] <0.11 k/uL [facility] Basophils/100 WBC (Bld) 0.2 % [facility] Differential cell count method Nom (Bld) Auto [facility] Eosinophils (Bld) [#/Vol] 0.23 10*3/uL <0.46 k/uL [facility] Eosinophils/100 WBC (Bld) 3.9 % [facility] Erythrocyte distribution width (RBC) [Ratio] 13.2 % 11.5 - 15.0 % [facility] Hematocrit (Bld) [Volume fraction] 36.5 % 36.0 - 46.0 % [facility] Hemoglobin (Bld) [Mass/Vol] 12.1 g/dL 11.5 - 15.5 g/dL [facility] Immature granulocytes (Bld) [#/Vol] <0.10 k/uL [facility] Immature granulocytes/100 WBC (Bld) 0.2 % [facility] Lymphocytes (Bld) [#/Vol] 0.50 10*3/uL Low 1.00 - 4.00 k/uL [facility] Lymphocytes/100 WBC (Bld) 8.4 % [facility] MCH (RBC) [Entitic mass] 29.8 pg 26.0 - 34.0 pg [facility] MCHC (RBC) [Mass/Vol] 33.2 g/dL 30.5 - 36.0 g/dL [facility] MCV (RBC) [Entitic vol] 89.9 fL 80.0 - 100.0 fL [facility] Monocytes (Bld) [#/Vol] 0.39 10*3/uL <0.87 k/uL [facility] Monocytes/100 WBC (Bld) 6.6 % [facility] Neutrophils (Bld) [#/Vol] 4.81 10*3/uL 1.45 - 7.50 k/uL [facility] Neutrophils/100 WBC (Bld) 80.7 % [facility] Nucleated RBC (Bld) [#/Vol] <0.01 k/uL [facility] Nucleated RBC/100 WBC (Bld) [Ratio] 0.0 /100 WBC [facility] Platelet mean volume (Bld) [Entitic vol] 9.2 fL 9.0 - 12.7 fL [facility] Platelets (Bld) [#/Vol] 237 10*3/uL 150 - 400 k/uL [facility] RBC (Bld) [#/Vol] 4.06 10*6/uL 3.90 - 5.2 0 m/uL [facility] WBC (Bld) [#/Vol] 5.95 10*3/uL 3.70 - 11. 00 k/uL [facility] Comprehensive metabolic 2000 panelon 07-17-2022 Albumin [Mass/Vol] 4.5 g/dL 3.9 - 4.9 g/dL [facility] ALP [Catalytic activity/Vol] 86 U/L 34 - 123 U/L [facility] ALT [Catalytic activity/Vol] 18 U/L 7 - 38 U/L [facility] Anion gap [Moles/Vol] 9 mmol/L 9 - 18 mmol/L [facility] AST [Catalytic activity/Vol] 19 U/L 13 - 35 U/L [facility] Bilirubin [Mass/Vol] 0.2 mg/dL 0.2 - 1 .3 mg/dL [facility] Calcium [Mass/Vol] 9.4 mg/dL 8.5 - 10. 2 mg/dL [facility] Chloride [Moles/Vol] 101 mmol/L 97 - 10 5 mmol/L [facility] CO2 [Moles/Vol] 28 mmol/L 22 - 30 mmol/L [facility] Creatinine [Mass/Vol] 0.67 mg/dL 0.58 - 0.96 mg/dL [facility] Estimated Glomerular Filtration Rate 105 mL/min/1.73m >=60 mL/min/1.73m [facility] Glucose [Mass/Vol] 109 mg/dL High 74 - 99 mg/dL [facility] Potassium [Moles/Vol] 4.2 mmol/L 3.7 - 5.1 mmol/L [facility] Protein [Mass/Vol] 7.5 g/dL 6.3 - 8.0 g/dL [facility] Sodium [Moles/Vol] 138 mmol/L 136 - 144 mmol/L [facility] Urea nitrogen [Mass/Vol] 17 mg/dL 7 - 21 mg/dL [facility] CBC W Auto Differential pane l (Bld)on 07-10-2022 Basophils (Bld) [#/Vol] <0.11 k/uL [facility] Basophils/100 WBC (Bld) 0.3 % [facility] Differential cell count method Nom (Bld) Auto [facility] Eosinophils (Bld) [#/Vol] 0.16 10*3/uL <0.46 k/uL [facility] Eosinophils/100 WBC (Bld) 2.6 % [facility] Erythrocyte distribution width (RBC) [Ratio] 12.9 % 11.5 - 15.0 % [facility] Hematocrit (Bld) [Volume fraction] 37.4 % 36.0 - 46.0 % [facility] Hemoglobin (Bld) [Mass/Vol] 12.6 g/dL 11.5 - 15.5 g/dL [facility] Immature granulocytes (Bld) [#/Vol] 0.03 10*3/uL <0.10 k/uL [facility] Immature granulocytes/100 WBC (Bld) 0.5 % [facility] Lymphocytes (Bld) [#/Vol] 0.57 10*3/uL Low 1.00 - 4.00 k/uL [facility] Lymphocytes/100 WBC (Bld) 9.4 % [facility] MCH (RBC) [Entitic mass] 30.1 pg 26.0 - 34.0 pg [facility] MCHC (RBC) [Mass/Vol] 33.7 g/dL 30.5 - 36.0 g/dL [facility] MCV (RBC) [Entitic vol] 89.3 fL 80.0 - 100.0 fL [facility] Monocytes (Bld) [#/Vol] 0.49 10*3/uL <0.87 k/uL [facility] Monocytes/100 WBC (Bld) 8.1 % [facility] Neutrophils (Bld) [#/Vol] 4.80 10*3/uL 1.45 - 7.50 k/uL [facility] Neutrophils/100 WBC (Bld) 79.1 % [facility] Nucleated RBC (Bld) [#/Vol] <0.01 k/uL [facility] Nucleated RBC/100 WBC (Bld) [Ratio] 0.0 /100 WBC [facility] Platelet mean volume (Bld) [Entitic vol] 9.4 fL 9.0 - 12.7 fL [facility] Platelets (Bld) [#/Vol] 218 10*3/uL 150 - 400 k/uL [facility] RBC (Bld) [#/Vol] 4.19 10*6/uL 3.90 - 5.2 0 m/uL [facility] WBC (Bld) [#/Vol] 6.07 10*3/uL 3.70 - 11. 00 k/uL [facility] Comprehensive metabolic 2000 panelon 07-10-2022 Albumin [Mass/Vol] 4.5 g/dL 3.9 - 4.9 g/dL [facility] ALP [Catalytic activity/Vol] 97 U/L 34 - 123 U/L [facility] ALT [Catalytic activity/Vol] 18 U/L 7 - 38 U/L [facility] Anion gap [Moles/Vol] 9 mmol/L 9 - 18 mmol/L [facility] AST [Catalytic activity/Vol] 20 U/L 13 - 35 U/L [facility] Bilirubin [Mass/Vol] 0.2 mg/dL 0.2 - 1 .3 mg/dL [facility] Calcium [Mass/Vol] 9.4 mg/dL 8.5 - 10. 2 mg/dL [facility] Chloride [Moles/Vol] 102 mmol/L 97 - 10 5 mmol/L [facility] CO2 [Moles/Vol] 28 mmol/L 22 - 30 mmol/L [facility] Creatinine [Mass/Vol] 0.66 mg/dL 0.58 - 0.96 mg/dL [facility] Estimated Glomerular Filtration Rate 105 mL/min/1.73m >=60 mL/min/1.73m [facility] Glucose [Mass/Vol] 95 mg/dL 74 - 99 mg/dL [facility] Potassium [Moles/Vol] 4.0 mmol/L 3.7 - 5.1 mmol/L [facility] Protein [Mass/Vol] 7.5 g/dL 6.3 - 8.0 g/dL [facility] Sodium [Moles/Vol] 139 mmol/L 136 - 144 mmol/L [facility] Urea nitrogen [Mass/Vol] 19 mg/dL 7 - 21 mg/dL [facility] CBC W Auto Differential pane l (Bld)on 06-24-2022 Basophils (Bld) [#/Vol] <0.11 k/uL [facility] Basophils/100 WBC (Bld) 0.3 % [facility] Differential cell count method Nom (Bld) Auto [facility] Eosinophils (Bld) [#/Vol] 0.11 10*3/uL <0.46 k/uL [facility] Eosinophils/100 WBC (Bld) 3.0 % [facility] Erythrocyte distribution width (RBC) [Ratio] 12.4 % 11.5 - 15.0 % [facility] Hematocrit (Bld) [Volume fraction] 39.1 % 36.0 - 46.0 % [facility] Hemoglobin (Bld) [Mass/Vol] 13.1 g/dL 11.5 - 15.5 g/dL [facility] Immature granulocytes (Bld) [#/Vol] <0.10 k/uL [facility] Immature granulocytes/100 WBC (Bld) 0.5 % [facility] Lymphocytes (Bld) [#/Vol] 0.45 10*3/uL Low 1.00 - 4.00 k/uL [facility] Lymphocytes/100 WBC (Bld) 12.3 % [facility] MCH (RBC) [Entitic mass] 29.9 pg 26.0 - 34.0 pg [facility] MCHC (RBC) [Mass/Vol] 33.5 g/dL 30.5 - 36.0 g/dL [facility] MCV (RBC) [Entitic vol] 89.3 fL 80.0 - 100.0 fL [facility] Monocytes (Bld) [#/Vol] 0.32 10*3/uL <0.87 k/uL [facility] Monocytes/100 WBC (Bld) 8.8 % [facility] Neutrophils (Bld) [#/Vol] 2.74 10*3/uL 1.45 - 7.50 k/uL [facility] Neutrophils/100 WBC (Bld) 75.1 % [facility] Nucleated RBC (Bld) [#/Vol] <0.01 k/uL [facility] Nucleated RBC/100 WBC (Bld) [Ratio] 0.0 /100 WBC [facility] Platelet mean volume (Bld) [Entitic vol] 10.1 fL 9.0 - 12.7 fL [facility] Platelets (Bld) [#/Vol] 186 10*3/uL 150 - 400 k/uL [facility] RBC (Bld) [#/Vol] 4.38 10*6/uL 3.90 - 5.2 0 m/uL [facility] WBC (Bld) [#/Vol] 3.65 10*3/uL Low 3.70 - 11. 00 k/uL [facility] Comprehensive metabolic 2000 panelon 06-24-2022 Albumin [Mass/Vol] 4.5 g/dL 3.9 - 4.9 g/dL [facility] ALP [Catalytic activity/Vol] 88 U/L 34 - 123 U/L [facility] ALT [Catalytic activity/Vol] 15 U/L 7 - 38 U/L [facility] Anion gap [Moles/Vol] 9 mmol/L 9 - 18 mmol/L [facility] AST [Catalytic activity/Vol] 19 U/L 13 - 35 U/L [facility] Bilirubin [Mass/Vol] 0.3 mg/dL 0.2 - 1 .3 mg/dL [facility] Calcium [Mass/Vol] 9.4 mg/dL 8.5 - 10. 2 mg/dL [facility] Chloride [Moles/Vol] 99 mmol/L 97 - 10 5 mmol/L [facility] CO2 [Moles/Vol] 28 mmol/L 22 - 30 mmol/L [facility] Creatinine [Mass/Vol] 0.65 mg/dL 0.58 - 0.96 mg/dL [facility] Estimated Glomerular Filtration Rate 105 mL/min/1.73m >=60 mL/min/1.73m [facility] Glucose [Mass/Vol] 113 mg/dL High 74 - 99 mg/dL [facility] Potassium [Moles/Vol] 4.0 mmol/L 3.7 - 5.1 mmol/L [facility] [facility] Protein [Mass/Vol] 7.5 g/dL 6.3 - 8.0 g/dL [facility] Sodium [Moles/Vol] 136 mmol/L 136 - 144 mmol/L [facility] Urea nitrogen [Mass/Vol] 19 mg/dL 7 - 21 mg/dL [facility] CBC W Auto Differential pane l (Bld)on 06-14-2022 Basophils (Bld) [#/Vol] 0.03 10*3/uL <0.11 k/uL [facility] Basophils/100 WBC (Bld) 0.4 % [facility] Differential cell count method Nom (Bld) Auto [facility] Eosinophils (Bld) [#/Vol] 0.08 10*3/uL <0.46 k/uL [facility] Eosinophils/100 WBC (Bld) 1.1 % [facility] Erythrocyte distribution width (RBC) [Ratio] 12.4 % 11.5 - 15.0 % [facility] Hematocrit (Bld) [Volume fraction] 41.7 % 36.0 - 46.0 % [facility] Hemoglobin (Bld) [Mass/Vol] 14.0 g/dL 11.5 - 15.5 g/dL [facility] Immature granulocytes (Bld) [#/Vol] <0.10 k/uL [facility] Immature granulocytes/100 WBC (Bld) 0.1 % [facility] Lymphocytes (Bld) [#/Vol] 1.64 10*3/uL 1.00 - 4.00 k/uL [facility] Lymphocytes/100 WBC (Bld) 22.5 % [facility] MCH (RBC) [Entitic mass] 29.8 pg 26.0 - 34.0 pg [facility] MCHC (RBC) [Mass/Vol] 33.6 g/dL 30.5 - 36.0 g/dL [facility] MCV (RBC) [Entitic vol] 88.7 fL 80.0 - 100.0 fL [facility] Monocytes (Bld) [#/Vol] 0.37 10*3/uL <0.87 k/uL [facility] Monocytes/100 WBC (Bld) 5.1 % [facility] Neutrophils (Bld) [#/Vol] 5.15 10*3/uL 1.45 - 7.50 k/uL [facility] Neutrophils/100 WBC (Bld) 70.8 % [facility] Nucleated RBC (Bld) [#/Vol] <0.01 k/uL [facility] Nucleated RBC/100 WBC (Bld) [Ratio] 0.0 /100 WBC [facility] Platelet mean volume (Bld) [Entitic vol] 10.6 fL 9.0 - 12.7 fL [facility] Platelets (Bld) [#/Vol] 259 10*3/uL 150 - 400 k/uL [facility] RBC (Bld) [#/Vol] 4.70 10*6/uL 3.90 - 5.2 0 m/uL [facility] WBC (Bld) [#/Vol] 7.28 10*3/uL 3.70 - 11. 00 k/uL [facility] Comprehensive metabolic 2000 panelon 06-14-2022 Albumin [Mass/Vol] 4.5 g/dL 3.9 - 4.9 g/dL [facility] ALP [Catalytic activity/Vol] 88 U/L 34 - 123 U/L [facility] ALT [Catalytic activity/Vol] 16 U/L 7 - 38 U/L [facility] Anion gap [Moles/Vol] 10 mmol/L 9 - 18 mmol/L [facility] AST [Catalytic activity/Vol] [facility] Bilirubin [Mass/Vol] 0.3 mg/dL 0.2 - 1 .3 mg/dL [facility] Calcium [Mass/Vol] 9.7 mg/dL 8.5 - 10. 2 mg/dL [facility] Chloride [Moles/Vol] 99 mmol/L 97 - 10 5 mmol/L [facility] CO2 [Moles/Vol] 24 mmol/L 22 - 30 mmol/L [facility] Creatinine [Mass/Vol] 0.68 mg/dL 0.58 - 0.96 mg/dL [facility] Estimated Glomerular Filtration Rate 104 mL/min/1.73m >=60 mL/min/1.73m [facility] Glucose [Mass/Vol] 136 mg/dL High 74 - 99 mg/dL [facility] Potassium [Moles/Vol] 4.1 mmol/L 3.7 - 5.1 mmol/L [facility] Protein [Mass/Vol] 7.7 g/dL 6.3 - 8.0 g/dL [facility] Sodium [Moles/Vol] 133 mmol/L Low 136 - 144 mmol/L [facility] Urea nitrogen [Mass/Vol] 16 mg/dL 7 - 21 mg/dL [facility] Consultation Noteon 06-12-20 Consultation Note [id number] .00CD:127 Normal [facility] CBC W Auto Differential pane l (Bld)on 05-27-2022 Basophils (Bld) [#/Vol] <0.11 k/uL [facility] Basophils (Bld) [#/Vol] [facility] Basophils/100 WBC (Bld) 0.2 % [facility] Differential cell count method Nom (Bld) Auto [facility] Eosinophils (Bld) [#/Vol] 0.06 10*3/uL [facility] Eosinophils/100 WBC (Bld) 0.7 % [facility] Erythrocyte distribution width (RBC) [Ratio] 12.8 % 11.5 - 15.0 % [facility] Hematocrit (Bld) [Volume fraction] 40.8 % 36.0 - 46.0 % [facility] Hemoglobin (Bld) [Mass/Vol] 13.7 g/dL 11.5 - 15.5 g/dL [facility] Immature granulocytes (Bld) [#/Vol] <0.10 k/uL [facility] Immature granulocytes (Bld) [#/Vol] NINF [facility] Immature granulocytes/100 WBC (Bld) 0.2 % [facility] Lymphocytes (Bld) [#/Vol] 1.43 10*3/uL [facility] Lymphocytes/100 WBC (Bld) 17.4 % [facility] MCH (RBC) [Entitic mass] 30.2 pg 26.0 - 34.0 pg [facility] MCHC (RBC) [Mass/Vol] 33.6 g/dL 30.5 - 36.0 g/dL [facility] MCV (RBC) [Entitic vol] 89.9 fL 80.0 - 100.0 fL [facility] Monocytes (Bld) [#/Vol] 0.35 10*3/uL [facility] Monocytes/100 WBC (Bld) 4.3 % [facility] Neutrophils (Bld) [#/Vol] 6.34 10*3/uL [facility] Neutrophils/100 WBC (Bld) 77.2 % [facility] Nucleated RBC (Bld) [#/Vol] <0.01 k/uL [facility] Nucleated RBC (Bld) [#/Vol] NINF [facility] Nucleated RBC/100 WBC (Bld) [Ratio] 0.0 /100 WBC [facility] Nucleated RBC/100 WBC (Bld) [Ratio] 0.0 % /100 WBC [facility] Platelet mean volume (Bld) [Entitic vol] 9.9 fL 9.0 - 12.7 fL [facility] Platelets (Bld) [#/Vol] 328 10*3/uL [facility] RBC (Bld) [#/Vol] 4.54 10*6/uL 3.90 - 5.2 0 m/uL [facility] WBC (Bld) [#/Vol] 8.22 10*3/uL [facility] This is an appended report. These results have been appended to a previously verified report. [facility] Comprehensive metabolic 2000 panelOrdered By: Mando Underwood on 05-27-2022 Albumin [Mass/Vol] 4.6 g/dL 3.9 - 4.9 g/dL [facility] ALP [Catalytic activity/Vol] 87 U/L 34 - 123 U/L [facility] ALT [Catalytic activity/Vol] 14 U/L 7 - 38 U/L [facility] Anion gap [Moles/Vol] 8 mmol/L Low 9 - 18 mmol/L [facility] AST [Catalytic activity/Vol] 22 U/L 13 - 35 U/L [facility] Bilirubin [Mass/Vol] 0.2 mg/dL 0.2 - 1 .3 mg/dL [facility] Calcium [Mass/Vol] 9.1 mg/dL 8.5 - 10. 2 mg/dL [facility] Chloride [Moles/Vol] 99 mmol/L 97 - 10 5 mmol/L [facility] CO2 [Moles/Vol] 29 mmol/L 22 - 30 mmol/L [facility] Creatinine [Mass/Vol] 0.70 mg/dL 0.58 - 0.96 mg/dL [facility] GFR/1.73 sq M.predicted among non-blacks MDRD (S/P/Bld) [Vol rate/Area] 104 mL/min/{1.73_m2} - PINF [facility] Comment on above: Estimated Glomerular Filtration [...] 128 mg/dL High 74 - 99 mg/dL [facility] Comment on above: The [place] [employer] (ADA) provides guidance for [...] Standards of Medical Care in Diabetes 2016, [place] [employer]. Diabetes Care. 2016.39(Suppl 1). Interpretation and review of laboratory results Abnormal [facility] Potassium [Moles/Vol] 3.8 mmol/L 3.7 - 5.1 mmol/L [facility] Protein [Mass/Vol] 7.7 g/dL 6.3 - 8.0 g/dL [facility] Sodium [Moles/Vol] 136 mmol/L 136 - 144 mmol/L [facility] Urea nitrogen [Mass/Vol] 16 mg/dL 7 - 21 mg/dL [facility] Comprehensive metabolic 2000 panelon 05-27-2022 Estimated Glomerular Filtration Rate 104 mL/min/1.73m >=60 mL/min/1.73m [facility] CT Abdomen W contrast John 1 [...] any questions regarding this interpretation, please call [phone]. If you are unable to reach us at the number above, please feel free to contact [facility] e[facility]iology at [phone]. DIVISION OF RADIOLOGY * * *Final Report* * * DATE OF EXAM: May 21 2022 9:24AM [facility] 0533 - CT ABDOMEN W [...] chest CT performed will be reported separately. Dental Technician (topogram) images: Unremarkable. DIVISION OF RADIOLOGY Provider, [facility] - 05/21/2022 * * *Final Report* * * DATE OF EXAM: May 21 2022 9:24AM [facility] 0533 - CT ABDOMEN W [...] chest CT performed will be reported separately. Dental Technician (topogram) images: Unremarkable. IMPRESSION IMPRESSION: 1. No [...] any questions regarding this interpretation, please call [phone]. If you are unable to reach us at the number above, please feel free to contact [facility] at [phone]. [facility] CT Chest W contrast John IMPRESSION: 1. [...] any questions regarding this interpretation, please call [phone]. If you are unable to reach us at the number above, please feel free to contact [facility] at [phone]. DIVISION OF RADIOLOGY * * *Final Report* * * DATE OF EXAM: May 21 2022 9:24AM [facility] 0539 - CT CHEST W [...] for findings related to the upper abdomen. Dental Technician (topogram) images: No additional findings. DIVISION OF RADIOLOGY Provider, [facility] - 05/21/2022 * * *Final Report* * * DATE OF EXAM: May 21 2022 9:24AM [facility] 0539 - CT CHEST W [...] for findings related to the upper abdomen. Dental Technician (topogram) images: No additional findings. IMPRESSION IMPRESSION: [...] any questions regarding this interpretation, please call [phone]. If you are unable to reach us at the number above, please feel free to contact [facility] at [phone]. [facility] CT Chest W contrast IVOrdere d By: [facility] Provider on 05-21-2022 [facility] No Panel Informationon 05-21 Radiology Study observation (narrative) [facility] Pathology Noteon 05-05-2022 Pathology Note [id number] 1.00CD:127 Normal [facility] CBC W Auto Differential pane l (Bld)on 05-02-2022 Basophils (Bld) [#/Vol] 10*3/uL Normal <0.11 [facility] Comment on above: Order Comment: Speci men Type: BLOOD SPECIMEN Ordering Facility: [facility] Address: [address] Performed By: #### 5 7021-8 #### [facility] CLIA [id number] [address] [place] [address] [place] Basophils/100 WBC (Bld) 0.3 % Normal [facility] Comment on above: Order Comment: Speci men Type: BLOOD SPECIMEN Ordering Facility: [facility] Address: [address] [place], [place] [address] Performed By: #### 5 7021-8 #### [facility] CLIA [id number] [address] [place] [address] [place] Differential cell count method Nom (Bld) Auto Normal [facility] Comment on above: Order Comment: Speci men Type: BLOOD SPECIMEN Ordering Facility: [facility] Address: [address] [place], [place] [address] Performed By: #### 5 7021-8 #### [facility] CLIA [id number] [address] [place] [address] [place] Eosinophils (Bld) [#/Vol] 0.05 10*3/uL Normal <0.46 [facility] Comment on above: Order Comment: Speci men Type: BLOOD SPECIMEN Ordering Facility: [facility] Address: [address] [place], [place] [address] Performed By: #### 5 7021-8 #### [facility] CLIA [id number] [facility] [place] [address] [place] Eosinophils/100 WBC (Bld) 0.7 % Normal [facility] Comment on above: Order Comment: Speci men Type: BLOOD SPECIMEN Ordering Facility: [facility] Address: [address] [place], [place] [address] Performed By: #### 5 7021-8 #### [facility] CLIA [id number] [address] [place] [address] [place] Erythrocyte distribution width (RBC) [Ratio] 12.7 % Normal 11.5-15.0 [facility] Comment on above: Order Comment: Speci men Type: BLOOD SPECIMEN Ordering Facility: [facility] Address: [address] [place], [place] [address] Performed By: #### 5 7021-8 #### [facility] [place] [id number] [place] Hematocrit (Bld) [Volume fraction] 43.0 % Normal 36.0-46.0 [facility] Comment on above: Order Comment: Speci men Type: BLOOD SPECIMEN Ordering Facility: [facility] Address: [address] [place], [place] [address] Performed By: #### 5 7021-8 #### [facility] [place] [id number] [address] [place] [address] [place] Hemoglobin (Bld) [Mass/Vol] 13.5 g/dL Normal 11.5-15.5 [facility] Comment on above: Order Comment: Speci men Type: BLOOD SPECIMEN Ordering Facility: [facility] Address: [address] [place] [address] Performed By: #### 5 7021-8 #### [facility] [place] [id number] [place] Immature granulocytes (Bld) [#/Vol] 10*3/uL Normal <0.10 [facility] Comment on above: Order Comment: Speci men Type: BLOOD SPECIMEN Ordering Facility: [facility] Address: [address] [place], [place] [address] Performed By: #### 5 7021-8 #### [facility] [place] [id number] [address] [place] Immature granulocytes/100 WBC (Bld) 0.3 % Normal [facility] Comment on above: Order Comment: Speci men Type: BLOOD SPECIMEN Ordering Facility: [facility] Address: [address] [place], [place] [address] Performed By: #### 5 7021-8 #### [facility] CLIA [id number] [address] [place] [address] [place] Lymphocytes (Bld) [#/Vol] 1.40 10*3/uL Normal 1.00-4.00 [facility] Comment on above: Order Comment: Speci men Type: BLOOD SPECIMEN Ordering Facility: [facility] Address: [address] [place] [address] Performed By: #### 5 7021-8 #### [facility] [place] [id number] [address] [place] Lymphocytes/100 WBC (Bld) 20.6 % Normal [facility] Comment on above: Order Comment: Speci men Type: BLOOD SPECIMEN Ordering Facility: [facility] Address: [address] [place] [address] Performed By: #### 5 7021-8 #### [facility] [place] [id number] [place] MCH (RBC) [Entitic mass] 29.2 pg Normal 26.0-34.0 [facility] Comment on above: Order Comment: Speci men Type: BLOOD SPECIMEN Ordering Facility: [facility] Address: [address] [place] [address] Performed By: #### 5 7021-8 #### [facility] [place] [id number] [address] [place] MCHC (RBC) [Mass/Vol] 31.4 g/dL Normal 30.5-36.0 [facility] Comment on above: Order Comment: Speci men Type: BLOOD SPECIMEN Ordering Facility: [facility] Address: [address] [place] [address] Performed By: #### 5 7021-8 #### [facility] [place] [id number] [place] MCV (RBC) [Entitic vol] 92.9 fL Normal 80.0-100.0 [facility] Comment on above: Order Comment: Speci men Type: BLOOD SPECIMEN Ordering Facility: [facility] Address: [address] Performed By: #### 5 7021-8 #### [facility] [place] [id number] [address] [place] [address] [place] Monocytes (Bld) [#/Vol] 0.48 10*3/uL Normal <0.87 [facility] Comment on above: Order Comment: Speci men Type: BLOOD SPECIMEN Ordering Facility: [facility] Address: [address] [place], [place] [address] Performed By: #### 5 7021-8 #### [facility] CLIA [id number] [address] [place] Monocytes/100 WBC (Bld) 7.1 % Normal [facility] Comment on above: Order Comment: Speci men Type: BLOOD SPECIMEN Ordering Facility: [facility] Address: [address] [place] [address] Performed By: #### 5 7021-8 #### [facility] [place] [id number] [address] [place] [address] [place] Neutrophils (Bld) [#/Vol] 4.81 10*3/uL Normal 1.45-7.50 [facility] Comment on above: Order Comment: Speci men Type: BLOOD SPECIMEN Ordering Facility: [facility] Address: [address] [place], [place] [address] Performed By: #### 5 7021-8 #### [facility] CLIA [id number] [address] [place] [id number] [place] Neutrophils/100 WBC (Bld) 71.0 % Normal [facility] Comment on above: Order Comment: Speci men Type: BLOOD SPECIMEN Ordering Facility: [facility] Address: [address] [place], [place] [address] Performed By: #### 5 7021-8 #### [facility] CLIA [id number] [address] [place] [address] [place] Nucleated RBC (Bld) [#/Vol] 10*3/uL Normal <0.01 [facility] Comment on above: Order Comment: Speci men Type: BLOOD SPECIMEN Ordering Facility: [facility] Address: [address] Performed By: #### 5 7021-8 #### [facility] CLIA [id number] [address] [place] [address] [place] Nucleated RBC/100 WBC (Bld) [Ratio] 0.0 /[address] [facility] Comment on above: Order Comment: Speci men Type: BLOOD SPECIMEN Ordering Facility: [facility] Address: [address] [place], [place] [address] Performed By: #### 5 7021-8 #### [facility] [place] [id number] [address] [place] [address] [place] Platelet mean volume (Bld) [Entitic vol] 10.5 fL Normal 9.0-12.7 [facility] Comment on above: Order Comment: Speci men Type: BLOOD SPECIMEN Ordering Facility: [facility] Address: [address] [place], [place] [address] Performed By: #### 5 7021-8 #### [facility] [place] [id number] [address] [place] [address] [place] Platelets (Bld) [#/Vol] 305 10*3/uL Normal 150-400 [facility] Comment on above: Order Comment: Speci men Type: BLOOD SPECIMEN Ordering Facility: [facility] Address: [address] Performed By: #### 5 7021-8 #### [facility] CLIA [id number] [address] [place] [address] [place] RBC (Bld) [#/Vol] 4.63 10*6/uL Normal 3.90-5.20 [facility] Comment on above: Order Comment: Speci men Type: BLOOD SPECIMEN Ordering Facility: [facility] Address: [address] [place], [place] [address] Performed By: #### 5 7021-8 #### [facility] CLIA [id number] [address] [facility] [place] [address] [facility] [place] WBC (Bld) [#/Vol] 6.78 10*3/uL Normal 3.70-11.00 [facility] Comment on above: Order Comment: Speci men Type: BLOOD SPECIMEN Ordering Facility: [facility] Address: [address] [place], [place] [address] Performed By: #### 5 7021-8 #### [facility] CLIA [id number] [address] [facility] [place] [place] [id number] [place] [address] [place] Basophils (Bld) [#/Vol] <0.11 k/uL [facility] Basophils/100 WBC (Bld) 0.3 % [facility] Differential cell count method Nom (Bld) Auto [facility] Eosinophils (Bld) [#/Vol] 0.05 10*3/uL <0.46 k/uL [facility] Eosinophils/100 WBC (Bld) 0.7 % [facility] Erythrocyte distribution width (RBC) [Ratio] 12.7 % 11.5 - 15.0 % [facility] Hematocrit (Bld) [Volume fraction] 43.0 % 36.0 - 46.0 % [facility] Hemoglobin (Bld) [Mass/Vol] 13.5 g/dL 11.5 - 15.5 g/dL [facility] Immature granulocytes (Bld) [#/Vol] <0.10 k/uL [facility] Immature granulocytes/100 WBC (Bld) 0.3 % [facility] Lymphocytes (Bld) [#/Vol] 1.40 10*3/uL 1.00 - 4.00 k/uL [facility] Lymphocytes/100 WBC (Bld) 20.6 % [facility] MCH (RBC) [Entitic mass] 29.2 pg 26.0 - 34.0 pg [facility] MCHC (RBC) [Mass/Vol] 31.4 g/dL 30.5 - 36.0 g/dL [facility] MCV (RBC) [Entitic vol] 92.9 fL 80.0 - 100.0 fL [facility] Monocytes (Bld) [#/Vol] 0.48 10*3/uL <0.87 k/uL [facility] Monocytes/100 WBC (Bld) 7.1 % [facility] Neutrophils (Bld) [#/Vol] 4.81 10*3/uL 1.45 - 7.50 k/uL [facility] Neutrophils/100 WBC (Bld) 71.0 % [facility] Nucleated RBC (Bld) [#/Vol] <0.01 k/uL [facility] Nucleated RBC/100 WBC (Bld) [Ratio] 0.0 /100 WBC [facility] Platelet mean volume (Bld) [Entitic vol] 10.5 fL 9.0 - 12.7 fL [facility] Platelets (Bld) [#/Vol] 305 10*3/uL 150 - 400 k/uL [facility] RBC (Bld) [#/Vol] 4.63 10*6/uL 3.90 - 5.2 0 m/uL [facility] WBC (Bld) [#/Vol] 6.78 10*3/uL 3.70 - 11. 00 k/uL [facility] Comprehensive metabolic 2000 panelon 05-02-2022 Albumin [Mass/Vol] 4.7 g/dL Normal 3.9-4.9 [facility] Comment on above: Order Comment: Speci men Type: BLOOD SPECIMEN Ordering Facility: [facility] Address: [address] [place] [address] Performed By: #### 2 4323-8 #### [facility] CLIA [id number] [address] [place] [address] [place] ALP [Catalytic activity/Vol] 88 U/L Normal 34-123 [facility] Comment on above: Order Comment: Speci men Type: BLOOD SPECIMEN Ordering Facility: [facility] Address: [address] [place] [address] Performed By: #### 2 4323-8 #### [facility] CLIA [id number] [address] [place] [address] [place] ALT [Catalytic activity/Vol] 17 U/L Normal 7-38 [facility] Comment on above: Order Comment: Speci men Type: BLOOD SPECIMEN Ordering Facility: [facility] Address: [address] Performed By: #### 2 4323-8 #### [facility] CLIA [id number] [address] [place] [address] [place] Anion gap [Moles/Vol] 9 mmol/L Normal 9-18 [facility] Comment on above: Order Comment: Speci men Type: BLOOD SPECIMEN Ordering Facility: [facility] Address: [address] [place], [place] [address] Performed By: #### 2 4323-8 #### [facility] CLIA [id number] [address] [place] [address] [place] AST [Catalytic activity/Vol] 20 U/L Normal 13-35 [facility] Comment on above: Order Comment: Speci men Type: BLOOD SPECIMEN Ordering Facility: [facility] Address: [address] [place], [place] [address] Performed By: #### 2 4323-8 #### [facility] [place] [id number] [address] [place] [address] [place] Bilirubin [Mass/Vol] 0.3 mg/dL Normal 0.2-1.3 [facility] Comment on above: Order Comment: Speci men Type: BLOOD SPECIMEN Ordering Facility: [facility] Address: [address] [place], [place] [address] Performed By: #### 2 4323-8 #### [facility] CLIA [id number] [address] [place] [address] [place] Calcium [Mass/Vol] 9.5 mg/dL Normal 8.5-10.2 [facility] Comment on above: Order Comment: Speci men Type: BLOOD SPECIMEN Ordering Facility: [facility] Address: [address] [place], [place] [address] Performed By: #### 2 4323-8 #### [facility] CLIA [id number] [address] [place] [address] [place] Chloride [Moles/Vol] 101 mmol/L Normal 97-105 [facility] [facility] Comment on above: Order Comment: Speci men Type: BLOOD SPECIMEN Ordering Facility: [facility] Address: [address] Performed By: #### 2 4323-8 #### [facility] CLIA [id number] [address] [place] [address] [place] CO2 [Moles/Vol] 28 mmol/L Normal 22-30 [facility] Comment on above: Order Comment: Speci men Type: BLOOD SPECIMEN Ordering Facility: [facility] Address: [address] [place], [place] [address] Performed By: #### 2 4323-8 #### [facility] CLIA [id number] [address] [place] Creatinine [Mass/Vol] 0.75 mg/dL Normal 0.58-0.96 [facility] Comment on above: Order Comment: Speci men Type: BLOOD SPECIMEN Ordering Facility: [facility] Address: [address] [place] [address] Performed By: #### 2 4323-8 #### [facility] CLIA [id number] [place] ESTIMATED GLOMERULAR FILTRATION RATE 95 mL/min/1.73m??? Normal >=60 [facility] Comment on above: Order Comment: Speci men Type: BLOOD SPECIMEN Ordering Facility: [facility] Address: [address] [place] [address] Result Comment: Alma mated Glomerular Filtration Rate [...] GFR. Performed By: #### 2 4323-8 #### [facility] CLIA [id number] [address] [place] [address] [place] Glucose [Mass/Vol] 116 mg/dL High 74-99 [facility] Comment on above: Order Comment: Speci men Type: BLOOD SPECIMEN Ordering Facility: [facility] Address: [address] [place] [address] Result Comment: The [place] Diabetes Association (ADA) provides guidance for cutoff [...] Standards of Medical Care in Diabetes 2016, [place] [employer]. Diabetes Care. 2016.39(Suppl 1). Performed By: #### 2 4323-8 #### [facility] CLIA [id number] [address] [place] [address] [place] Potassium [Moles/Vol] 4.5 mmol/L Normal 3.7-5.1 [facility] Comment on above: Order Comment: Shashi love Type: BLOOD SPECIMEN Ordering Facility: [facility] Address: [address] [place] [address] Performed By: #### 2 4323-8 #### [facility] CLIA [id number] [address] [place] [address] [place] Protein [Mass/Vol] 8.0 g/dL Normal 6.3-8.0 [facility] Comment on above: Order Comment: Speci men Type: BLOOD SPECIMEN Ordering Facility: [facility] Address: [address] [place] [address] Performed By: #### 2 4323-8 #### [facility] CLIA [id number] [address] [place] [address] [place] Sodium [Moles/Vol] 138 mmol/L Normal 136-144 [facility] Comment on above: Order Comment: Speci men Type: BLOOD SPECIMEN Ordering Facility: [facility] Address: [address] [place] [address] Performed By: #### 2 4323-8 #### [facility] CLIA [id number] [address] [place] [id number] [place] Urea nitrogen [Mass/Vol] 16 mg/dL Normal 7-21 [facility] Comment on above: Order Comment: Speci men Type: BLOOD SPECIMEN Ordering Facility: [facility] Address: [address] [place] [id number] Performed By: #### 2 4323-8 #### [facility] CLIA [id number] [address] [place] [address] [place] Albumin [Mass/Vol] 4.7 g/dL 3.9 - 4.9 g/dL [facility] ALP [Catalytic activity/Vol] 88 U/L 34 - 123 U/L [facility] ALT [Catalytic activity/Vol] 17 U/L 7 - 38 U/L [facility] Anion gap [Moles/Vol] 9 mmol/L 9 - 18 mmol/L [facility] AST [Catalytic activity/Vol] 20 U/L 13 - 35 U/L [facility] Bilirubin [Mass/Vol] 0.3 mg/dL 0.2 - 1 .3 mg/dL [facility] Calcium [Mass/Vol] 9.5 mg/dL 8.5 - 10. 2 mg/dL [facility] Chloride [Moles/Vol] 101 mmol/L 97 - 10 5 mmol/L [facility] CO2 [Moles/Vol] 28 mmol/L 22 - 30 mmol/L [facility] Creatinine [Mass/Vol] 0.75 mg/dL 0.58 - 0.96 mg/dL [facility] Estimated Glomerular Filtration Rate 95 mL/min/1.73m >=60 mL/min/1.73m [facility] Glucose [Mass/Vol] 116 mg/dL High 74 - 99 mg/dL [facility] Potassium [Moles/Vol] 4.5 mmol/L 3.7 - 5.1 mmol/L [facility] Protein [Mass/Vol] 8.0 g/dL 6.3 - 8.0 g/dL [facility] Sodium [Moles/Vol] 138 mmol/L 136 - 144 mmol/L [facility] Urea nitrogen [Mass/Vol] 16 mg/dL 7 - 21 mg/dL [facility] Outside Flexible Sigmoidosco pyon 04-25-2022 Outside Flexible Sigmoidoscopy [id number] .00CD:127 Normal [facility] PREG HCG QUALon 04-24-2022 , QUAL Negative Normal NEGATIVE [facility] Comment on above: Performed By: #### P REG #### [facility] [address] [address] [address] Kirby Espinoza Lab Reportson 04-23-2022 Lab Reports [id number] .00CD:127 Normal [facility] Covid-19 PCR (CVDTBH)on SARS-CoV-2 (COVID-19) RNA SUSAN+probe Ql (Unsp spec) Not detected Normal NOT DETECTED [facility] Comment on above: Result Comment: This test is not yet approved or cleared by the [place] FDA. When there are no FDA-approved or cleared tests available, and other criteria are met, FDA can make tests available under an emergency access mechanism called an Emergency Use Authorization (EUA). The EUA for this test is supported by the [place] of Health and Human Service's (HHS's) declaration [...] SARS-CoV-2. Performed By: #### C VDTBH #### [facility] [address] [place], [place] [address] Dr. Kirby Espinoza Provider Letter FTon 03-26 Provider Letter [facility] March 26, 2022 KIRT REYNA [address] [place] [id number] KIRT REYNA 1970 Dear Kirt, We have [...] Sincerely, Dr. Vitaly Vaughn MD General Surgery Normal [facility] Consent for Procedure/Surger yon 02-21-2022 Consent for Procedure/Surgery [id number] .[id number]:127 Normal [facility] Physician Referralon 022 Physician Referral [id number] .[id number]:127 Normal [facility] CBC AUTO DIFFon 02-04-2022 BASO # 0.0 103/ul Normal 0.0-0.1 [facility] Comment on above: Performed By: #### C BC #### [facility] [address] [place] [address] Dr. Kirby Espinoza Basophils/100 WBC (Bld) 0.3 % Normal 0.2-2.0 [facility] Comment on above: Performed By: #### C BC #### [facility] [address] [place] [address] Dr. Kirby Espinoza EO # 0.1 103/ul Normal 0.0-0.7 [facility] Comment on above: Performed By: #### C BC #### [facility] [address] [place] [address] Dr. Kirby Espinoza Eosinophils/100 WBC (Bld) 1.5 % Normal 0.9-7.0 [facility] Comment on above: Performed By: #### C BC #### [facility] [address] [place] [address] Dr. Kirby Espinoza Erythrocyte distribution width (RBC) [Ratio] 12.7 % Normal 11.0-15.0 [facility] Comment on above: Performed By: #### C BC #### [facility] [address] [place] [address] Dr. Kirby Espinoza Hematocrit (Bld) [Volume fraction] 38.4 % Normal 36.0-48.0 [facility] Comment on above: Performed By: #### C BC #### [facility] [address] [place] [address] Dr. Kirby Espinoza Hemoglobin (Bld) [Mass/Vol] 13.0 g/dL Normal 12.0-16.0 [facility] Comment on above: Performed By: #### C BC #### [facility] [address] [place] [address] Dr. Kirby Espinoza IG # 0.01 10e3/ul Normal 0.00-0.03 [facility] Comment on above: Performed By: #### C BC #### [facility] [address] [place] [address] Dr. Kirby Espinoza IG % 0.2 % Normal 0.0-0.5 [facility] Comment on above: Performed By: #### C BC #### [facility] [address] [place] [address] Dr. Kirby Espinoza LYMPH # 2.0 103/ul Normal 1.2-3.8 [facility] Comment on above: Performed By: #### C BC #### [facility] [address] [place] [address] Dr. Kirby Espinoza Lymphocytes/100 WBC (Bld) 30.2 % Normal 20.5-60.0 [facility] Comment on above: Performed By: #### C BC #### [facility] [address] [place] [address] Dr. Kirby Espinoza MANUAL DIFF REQ NO Normal [facility] Comment on above: Performed By: #### C BC #### [facility] [address] [place] [address] Dr. Kirby Espinoza MCH (RBC) [Entitic mass] 30.2 pg Normal 26.7-34.0 [facility] Comment on above: Performed By: #### C BC #### [facility] [address] [address] [address] Kirby Espinoza MCHC (RBC) [Mass/Vol] 33.9 g/dL Normal 29.9-35.2 [facility] Comment on above: Performed By: #### C BC #### [facility] [address] [place] [address] Dr. Kirby Espinoza MCV (RBC) [Entitic vol] 89.1 fL Normal 81.0-99.0 [facility] Comment on above: Performed By: #### C BC #### [facility] [address] [place] [address] Dr. Kirby Espinoza MONO # 0.5 103/ul Normal 0.3-0.8 [facility] Comment on above: Performed By: #### C BC #### [facility] [address] [place] [address] Dr. Kirby Espinoza Monocytes/100 WBC (Bld) 7.0 % Normal 1.7-12.0 [facility] Comment on above: Performed By: #### C BC #### [facility] [address] [place] [address] Dr. Kirby Espinoza NEUT # 4.0 103/ul Normal 1.4-6.5 [facility] Comment on above: Performed By: #### C BC #### [facility] [address] [place] [address] Dr. Kirby Espinoza Neutrophils/100 WBC (Bld) 60.8 % Normal 43.0-75.0 [facility] Comment on above: Performed By: #### C BC #### [facility] [address] [place] [address] Dr. Kirby Espinoza Platelet mean volume (Bld) [Entitic vol] 9.9 fL Normal 9.5-13.5 [facility] Comment on above: Performed By: #### C BC #### [facility] [address] [place] [address] Dr. Kirby Espinoza PLT 245 103/ul Normal 150-450 [facility] Comment on above: Performed By: #### C BC #### [facility] [address] [place] [address] [address] Kirby Espinoza RBC 4.31 106/ul Normal 4.20-5.40 [facility] Comment on above: Performed By: #### C BC #### [facility] [address] [address] [address] Kirby Espinoza WBC 6.6 103/ul Normal 4.0-11.0 [facility] Comment on above: Performed By: #### C BC #### [facility] [address] [place] [address] [address] Kirby Espinoza FREE THYROXINE INDEX T7on FTI 3.01 Normal 1.30-4.50 [facility] Comment on above: Performed By: #### C MP, T7, TSH, LIPID #### [facility] [address] [address] [address] Kirby Espinoza T3U 32.0 % Normal 30.0-39.0 [facility] Comment on above: Performed By: #### C MP, T7, TSH, LIPID #### [facility] [address] [place] [address] [address] Kirby Espinoza T4 [Mass/Vol] 9.40 ug/dL Normal 4.80-13.90 [facility] Comment on above: Performed By: #### C MP, T7, TSH, LIPID #### [facility] [address] [address] [address] Kirby Espinoza GLYCOHEMOGLOBIN A1Con 2021 ADA RECOMMENDATION SEE BELOW Normal [facility] Comment on above: Result Comment: ADA RECOMMENDED LIMIT 4.0 - 6.0 ADA THERAPEUTIC TARGET < 7.0 ACTION SUGGESTED > 7.0 Performed By: #### A 1C ####[facility] [address] [place] [address]Dr. Kirby Espinoza Glucose [Mass/Vol] 114 mg/dL Normal [facility] Comment on above: Performed By: #### A 1C ####[facility] [address] [place] [address]Dr. Kirby Espinoza HbA1c (Bld) [Mass fraction] 5.6 % Normal 4.5-6.2 [facility] Comment on above: Performed By: #### A 1C ####[facility] [address] [place] [address]Dr. Kirby Espinoza IRONon 02-04-2022 Iron [Mass/Vol] 61.0 ug/dL Normal 50.0-170.0 [facility] Comment on above: Performed By: #### I LUIGI #### [facility] [address] [place] [address] [address] Kirby Espinoza LIPID PROFILEon 02-04-2022 CHOL-HDL RATIO NORM SEE BELOW Normal [facility] Comment on above: Result Comment: 3.3 - 4.4 LOW RISK 4.4 - 7.1 AVERAGE RISK 7.1 - 11.0 MODERATE RISK >11.0 HIGH RISK Performed By: #### C MP, T7, TSH, LIPID #### [facility] [address] [place] [address] [address] Kirby Espinoza Cholesterol [Mass/Vol] 194 mg/dL Normal <=200 [facility] Comment on above: Performed By: #### C MP, T7, TSH, LIPID #### [facility] [address] [address] [address] Kirby Espinoza Cholesterol in HDL [Mass/Vol] 69 mg/dL Critically high 40-60 [facility] Comment on above: Performed By: #### C MP, T7, TSH, LIPID #### [facility] [address] [place] [address] [address] Kirby Espinoza Cholesterol in LDL [Mass/Vol] 110.4 mg/dL Normal [facility] Comment on above: Performed By: #### C MP, T7, TSH, LIPID #### [facility] [address] [address] [address] Kirby Espinoza Cholesterol.total/Ch olesterol in HDL [Mass ratio] 2.8 {ratio} Normal [facility] Comment on above: Performed By: #### C MP, T7, TSH, LIPID #### [facility] [address] [address] [address] Kirby Espinoza HDL NORMAL > or = 60 mg/dl - LO W CARDIOVASCULAR RISK <40 mg/dl - HIGH CARDIOVASCULAR RISK Normal [facility] Comment on above: Performed By: #### C MP, T7, TSH, LIPID #### [facility] [address] [address] [address] Kirby Espinoza LDL CALC NORMAL SEE BELOW Normal [facility] Comment on above: Result Comment: <100 mg/dl OPTIMAL 100 - 129 mg/dl NEAR OR ABOVE OPTIMAL 130 - 159 mg/dl BORDERLINE HIGH 160 - 189 mg/dl HIGH >190 mg/dl VERY HIGH Performed By: #### C MP, T7, TSH, LIPID #### [facility] [address] [place] [address] [address] Kirby Espinoza Triglyceride [Mass/Vol] 73 mg/dL Normal <=150 [facility] Comment on above: Performed By: #### C MP, T7, TSH, LIPID #### [facility] [address] [place] [address] [address] Kirby Espinoza VLDL CALC 14.6 mg/dL Normal [facility] Comment on above: Performed By: #### C MP, T7, TSH, LIPID #### [facility] [address] [place] [address] [address] Kirby Espinoza OCC BLD IMMUNO SCREENon 01-12 OCCULT BLOOD Positive Abnormal NEGATIVE [facility] Comment on above: Performed By: #### O BSCRN #### [facility] [address] [place] [address] [address] Kirby sEpinoza PROF 14(COMP METB)on 022 Albumin [Mass/Vol] 3.6 g/dL Normal 3.4-5.0 [facility] Comment on above: Performed By: #### C MP, T7, TSH, LIPID ####[facility] [address] [place] [address]Dr. Kirby Espinoza Albumin/Globulin [Mass ratio] 0.9 {ratio} Normal [facility] Comment on above: Performed By: #### C MP, T7, TSH, LIPID ####[facility] [address] [place] [address]Dr. Kirby Espinoza ALP [Catalytic activity/Vol] 72 U/L Normal 46-116 [facility] Comment on above: Performed By: #### C MP, T7, TSH, LIPID ####[facility] [address] [place] [address]Dr. Kirby Espinoza ALT [Catalytic activity/Vol] 21 U/L Normal 14-59 [facility] Comment on above: Performed By: #### C MP, T7, TSH, LIPID ####[facility] [address] [place] [address]Dr. Kirby Espinoza Anion gap [Moles/Vol] 10.2 mmol/L Normal [facility] Comment on above: Performed By: #### C MP, T7, TSH, LIPID ####[facility] [address] [place], [place] [address]Dr. Kirby Espinoza AST [Catalytic activity/Vol] 17 U/L Normal 15-37 [facility] Comment on above: Performed By: #### C MP, T7, TSH, LIPID ####[facility] [address] [place], [place] [address]Dr. Kirby Espinoza Bilirubin [Mass/Vol] 0.5 mg/dL Normal 0.2-1.0 [facility] Comment on above: Performed By: #### C MP, T7, TSH, LIPID ####[facility] [address] [place] [address]Dr. Kirby Espinoza Calcium [Mass/Vol] 8.6 mg/dL Normal 8.5-10.1 [facility] Comment on above: Performed By: #### C MP, T7, TSH, LIPID ####[facility] [address] [place] [address]Dr. Kirby Espinoza Chloride [Moles/Vol] 103 mmol/L Normal 98-107 [facility] Comment on above: Performed By: #### C MP, T7, TSH, LIPID ####[facility] [address] [place] [address]Dr. Kirby Espinoza CO2 [Moles/Vol] 27.4 mmol/L Normal 21.0-32.0 [facility] Comment on above: Performed By: #### C MP, T7, TSH, LIPID ####[facility] [address] [place] [address]Dr. Dominiquebong Espinoza Creatinine [Mass/Vol] 0.70 mg/dL Normal 0.55-1.02 [facility] Comment on above: Performed By: #### C MP, T7, TSH, LIPID ####[facility] [address] [place] [address]Dr. Kirby Alexis EGFR-AF CANADIAN >60 Normal >=60 [facility] Comment on above: Performed By: #### C MP, T7, TSH, LIPID ####[facility] [address] [place] [address]Dr. Kirby Espinoza EGFR-NON AF CANADIAN >60 Normal >=60 [facility] Comment on above: Performed By: #### C MP, T7, TSH, LIPID ####[facility] [address] [place] [address]Dr. Kirby Espinoza Globulin (S) [Mass/Vol] 3.8 g/dL Normal [facility] Comment on above: Performed By: #### C MP, T7, TSH, LIPID ####[facility] [address] [place], [place] [address]Dr. Kirby Espinoza Glucose [Mass/Vol] 103 mg/dL Normal 74-106 [facility] Comment on above: Performed By: #### C MP, T7, TSH, LIPID ####[facility] [address] [place], [place] [address]Dr. Kirby Espinoza Potassium [Moles/Vol] 3.6 mmol/L Normal 3.5-5.1 [facility] Comment on above: Performed By: #### C MP, T7, TSH, LIPID ####[facility] [address] [place] [address]Dr. Kirby Espinoza Protein [Mass/Vol] 7.4 g/dL Normal 6.4-8.2 [facility] Comment on above: Performed By: #### C MP, T7, TSH, LIPID ####[facility] [address] [place], [place] [address]Zx. Kirby Esipnoza Sodium [Moles/Vol] 137 mmol/L Normal 136-145 [facility] Comment on above: Performed By: #### C MP, T7, TSH, LIPID ####[facility] [address] [place], [place] [address]Fx. Kirby Espinoza Urea nitrogen [Mass/Vol] 15.0 mg/dL Normal 7.0-18.0 [facility] Comment on above: Performed By: #### C MP, T7, TSH, LIPID ####[facility] [address] [place], [place] [address]Nn. Kirby Espinoza Urea nitrogen/Creatinine [Mass ratio] 21.4 mg/mg Normal [facility] Comment on above: Performed By: #### C MP, T7, TSH, LIPID ####[facility] [address] [place], [place] [address]Do. Kirby Espinoza TSHon 02-04-2022 TSH 1.513 uIU/mL Normal 0.358-3.740 [facility] Comment on above: Performed By: #### C MP, T7, TSH, LIPID #### [facility] [address] [place], [place] [address] Dr. Kirby Espinoza VC VENOUS REFLUX CARL LMTon 0 12-28-2021 VC VENOUS REFLUX CARL LMT Patient: KIRT REYNA Exam Date: 12/28/2021 : 1970 Gender:F Ordering : DR SONDRA LIU . Admission #: [id number] Family : Order #: [id number] CLICK HERE TO VIEW EXAM RADIOLOGY REPORT [...] chronic thrombus visualized Compressibility: Normal Flow: Normal Tax Accounting Manager: Dist/med 1.7mm, without reflux Tech Note: Competent SFJ and SPJ. Patent varicose vein 1.3mm without reflux. CONCLUSION: 1. No significantly dilated or incompetent superficial veins within the right or left lower extremity. Dictated by: Krsiti Tamez M.D. on 12/31/2021 at 07:51 Approved by: Kristi Tamez M.D. on 12/31/2021 at 08:05 Normal [facility] Vital Signs Date Time Vital Sign Value Performing Clinician Facility 01-10-2025 11:26-0400 Body weight 82.1 kg Doctol[employer] Phone: [facility] 01-10-2025 11:26-0400 Diastolic blood pressure 72 mm[Hg] Arimaz Work Phone: [facility] 01-10-2025 11:26-0400 Systolic blood pressure 120 mm[Hg] Pérez Hubbard DO Work Phone: [facility] 11-26-2024 15:35-0400 Body temperature 97.5 [degF] Phil Dougherty MD Work Phone: [facility] 11-26-2024 15:35-0400 Diastolic blood pressure 69 mm[Hg] Phil Dougherty MD Work Phone: [facility] 11-26-2024 15:35-0400 Heart rate 88 /min Phil Doughrety MD Work Phone: [facility] 11-26-2024 15:35-0400 SaO2% (BldA) [Mass fraction] 99 % Phil Dougherty MD Work Phone: [facility] 11-26-2024 15:35-0400 Systolic blood pressure 146 mm[Hg] Phil Dougherty MD Work Phone: [facility] 11-02-2024 13:57-0400 Body height 170.2 cm Paco Bonds MD Work Phone: [facility] 11-02-2024 13:57-0400 Body mass index (BMI) [Ratio] 28.79 kg/m2 Paco Bonds MD Work Phone: [facility] 11-02-2024 13:57-0400 Body temperature 98.1 [degF] Paco Bonds MD Work Phone: [facility] 11-02-2024 13:57-0400 Body weight 83.4 kg Paco Bonds MD Work Phone: [facility] 11-02-2024 13:57-0400 Diastolic blood pressure 79 mm[Hg] Paco Bonds MD Work Phone: [facility] 11-02-2024 13:57-0400 Heart rate 79 /min Paco Bonds MD Work Phone: [facility] 11-02-2024 13:57-0400 Respiratory rate 16 /min Paco Bonds MD Work Phone: [facility] 11-02-2024 13:57-0400 SaO2% (BldA) [Mass fraction] 99 % Paco Bonds MD Work Phone: [facility] 11-02-2024 13:57-0400 Systolic blood pressure 138 mm[Hg] Paco Bonds MD Work Phone: [facility] 05-28-2024 15:50-0500 Body height 170.2 cm Phil Dougherty MD Work Phone: [facility] 05-28-2024 15:50-0500 Body mass index (BMI) [Ratio] 28.35 kg/m2 Phil Dougherty MD Work Phone: [facility] 05-28-2024 15:50-0500 Body weight 82.1 kg Phil Dougherty MD Work Phone: [facility] 05-28-2024 15:50-0500 Diastolic blood pressure 65 mm[Hg] Phil Dougherty MD Work Phone: [facility] 05-28-2024 15:50-0500 Heart rate 92 /min Phil Dougherty MD Work Phone: [facility] 05-28-2024 15:50-0500 SaO2% (BldA) [Mass fraction] 100 % Phil Dougherty MD Work Phone: [facility] 05-28-2024 15:50-0500 Systolic blood pressure 141 mm[Hg] Phil Dougherty MD Work Phone: [facility] 04-26-2024 15:00-0400 Body mass index (BMI) [Ratio] 28.38 kg/m2 Gerardo Mckinnon APRN.COMMUNITY RESOURCE OFFICER Work Phone: [facility] 04-26-2024 15:00-0400 Body temperature 97.9 [degF] Gerardo Mckinnon APRN.COMMUNITY RESOURCE OFFICER Work Phone: [facility] 04-26-2024 15:00-0400 Body weight 82.2 kg Gerardo Dean NON DESTRUCTIVE EVALUATION MANAGER.COMMUNITY RESOURCE OFFICER Work Phone: [facility] 04-26-2024 15:00-0400 Diastolic blood pressure 72 mm[Hg] Gerardo Mckinnon NON DESTRUCTIVE EVALUATION MANAGER.COMMUNITY RESOURCE OFFICER Work Phone: [facility] 04-26-2024 15:00-0400 Heart rate 89 /min Gerardo Mckinnon NON DESTRUCTIVE EVALUATION MANAGER.COMMUNITY RESOURCE OFFICER Work Phone: [facility] 04-26-2024 15:00-0400 Respiratory rate 16 /min Gerardo Mckinnon NON DESTRUCTIVE EVALUATION MANAGER.COMMUNITY RESOURCE OFFICER Work Phone: [facility] 04-26-2024 15:00-0400 SaO2% (BldA) [Mass fraction] 100 % Gerardo Mckinnon NON DESTRUCTIVE EVALUATION MANAGER.COMMUNITY RESOURCE OFFICER Work Phone: [facility] 04-26-2024 15:00-0400 Systolic blood pressure 129 mm[Hg] Gerardo Mckinnon NON DESTRUCTIVE EVALUATION MANAGER.COMMUNITY RESOURCE OFFICER Work Phone: [facility] 12-12-2023 13:55-0400 Body height 170.2 cm Phil Dougherty MD Work Phone: [facility] 12-12-2023 13:55-0400 Body mass index (BMI) [Ratio] 27.72 kg/m2 Phil Dougherty MD Work Phone: [facility] 12-12-2023 13:55-0400 Body temperature 97.3 [degF] Phil Dougherty MD Work Phone: [facility] 12-12-2023 13:55-0400 Body weight 80.29 kg Phil Dougherty MD Work Phone: [facility] 12-12-2023 13:55-0400 Diastolic blood pressure 75 mm[Hg] Phil Dougherty MD Work Phone: [facility] 12-12-2023 13:55-0400 Heart rate 81 /min Phil Dougherty MD Work Phone: [facility] 12-12-2023 13:55-0400 SaO2% (BldA) [Mass fraction] 100 % Phil Dougherty MD Work Phone: [facility] 12-12-2023 13:55-0400 Systolic blood pressure 140 mm[Hg] Phil Dougherty MD Work Phone: [facility] 10-31-2023 16:12-0400 Body temperature 97.11 [degF] Phil Dougherty MD Work Phone: [facility] 10-31-2023 16:12-0400 Diastolic blood pressure 68 mm[Hg] Phil Dougherty MD Work Phone: [facility] 10-31-2023 16:12-0400 Heart rate 90 /min Phil Dougherty MD Work Phone: [facility] 10-31-2023 16:12-0400 SaO2% (BldA) [Mass fraction] 100 % Phil Dougherty MD Work Phone: [facility] 10-31-2023 16:12-0400 Systolic blood pressure 143 mm[Hg] Phil Dougherty MD Work Phone: [facility] 10-27-2023 14:12-0400 Body height 170.2 cm Paco Bonds MD Work Phone: [facility] 10-27-2023 14:12-0400 Body temperature 97 [degF] Paco Bonds MD Work Phone: [facility] 10-27-2023 14:12-0400 Body weight 80.4 kg Paco Bonds MD Work Phone: [facility] 10-27-2023 14:12-0400 Diastolic blood pressure 65 mm[Hg] Paco Bonds MD Work Phone: [facility] 10-27-2023 14:12-0400 Heart rate 93 /min Paco Bonds MD Work Phone: [facility] 10-27-2023 14:12-0400 Respiratory rate 16 /min Paco Bonds MD Work Phone: [facility] 10-27-2023 14:12-0400 SaO2% (BldA) [Mass fraction] 99 % Paco Bonds MD Work Phone: [facility] 10-27-2023 14:12-0400 Systolic blood pressure 144 mm[Hg] Paco Bonds MD Work Phone: [facility] 04-28-2023 13:56-0400 Body height 170.2 cm Paco Bonds MD Work Phone: [facility] 04-28-2023 13:56-0400 Body temperature 97.2 [degF] Paco Bonds MD Work Phone: [facility] 04-28-2023 13:56-0400 Body weight 79.83 kg Paco Bonds MD Work Phone: [facility] 04-28-2023 13:56-0400 Diastolic blood pressure 68 mm[Hg] Paco Bonds MD Work Phone: [facility] 04-28-2023 13:56-0400 Heart rate 84 /min aPco Bonds MD Work Phone: [facility] 04-28-2023 13:56-0400 Respiratory rate 16 /min Paco Bonds MD Work Phone: [facility] 04-28-2023 13:56-0400 SaO2% (BldA) [Mass fraction] 99 % Paco Bonds MD Work Phone: [facility] 04-28-2023 13:56-0400 Systolic blood pressure 155 mm[Hg] Paco Bonds MD Work Phone: [facility] 01-16-2023 15:22-0400 Body weight 78.02 kg Phil Dougherty MD Work Phone: [facility] 01-16-2023 15:22-0400 Diastolic blood pressure 75 mm[Hg] Phil Dougherty MD Work Phone: [facility] 01-16-2023 15:22-0400 Heart rate 78 /min Phil Dougherty MD Work Phone: [facility] 01-16-2023 15:22-0400 Systolic blood pressure 138 mm[Hg] Phil Dougherty MD Work Phone: [facility] 10-28-2022 14:17-0400 Body temperature 97.5 [degF] Toribio Michaud MD Work Phone: [facility] 10-28-2022 14:17-0400 Body weight 79.38 kg Toribio Michaud MD Work Phone: [facility] 10-28-2022 14:17-0400 Diastolic blood pressure 76 mm[Hg] Toribio Michaud MD Work Phone: [facility] 10-28-2022 14:17-0400 Heart rate 90 /min Toribio Michaud MD Work Phone: [facility] 10-28-2022 14:17-0400 Respiratory rate 16 /min Toribio Michaud MD Work Phone: [facility] 10-28-2022 14:17-0400 Systolic blood pressure 139 mm[Hg] Toribio Michaud MD Work Phone: [facility] 10-28-2022 13:40-0400 Diastolic blood pressure 76 mm[Hg] Paco Bonds MD Work Phone: [facility] 10-28-2022 13:40-0400 Heart rate 90 /min Paco Bonds MD Work Phone: [facility] 10-28-2022 13:40-0400 Systolic blood pressure 139 mm[Hg] Paco Bonds MD Work Phone: [facility] 10-28-2022 13:34-0400 Body height 170.2 cm Paco Bonds MD Work Phone: [facility] 10-28-2022 13:34-0400 Body temperature 97.5 [degF] Paco Bonds MD Work Phone: [facility] 10-28-2022 13:34-0400 Body weight 79.65 kg Paco Bonds MD Work Phone: [facility] 10-28-2022 13:34-0400 Respiratory rate 16 /min Paco Bonds MD Work Phone: [facility] 10-28-2022 13:34-0400 SaO2% (BldA) [Mass fraction] 100 % Paco Bonds MD Work Phone: [facility] 09-04-2022 10:29-0500 Body height 170.2 cm Paco Bonds MD Work Phone: [facility] 09-04-2022 10:29-0500 Body temperature 98.91 [degF] Paco Bonds MD Work Phone: [facility] 09-04-2022 10:29-0500 Body weight 78.56 kg Paco Bonds MD Work Phone: [facility] 09-04-2022 10:29-0500 Diastolic blood pressure 67 mm[Hg] Paco Bonds MD Work Phone: [facility] 09-04-2022 10:29-0500 Heart rate 97 /min Paco Bonds MD Work Phone: [facility] 09-04-2022 10:29-0500 Respiratory rate 16 /min Paco Bonds MD Work Phone: [facility] 09-04-2022 10:29-0500 SaO2% (BldA) [Mass fraction] 98 % Paco Bonds MD Work Phone: [facility] 09-04-2022 10:29-0500 Systolic blood pressure 142 mm[Hg] Paco Bonds MD Work Phone: [facility] 08-01-2022 10:47-0500 Body temperature 97.39 [degF] Toribio Michaud MD Work Phone: [facility] 08-01-2022 10:47-0500 Body weight 76.66 kg Toribio Michaud MD Work Phone: [facility] 08-01-2022 10:47-0500 Diastolic blood pressure 74 mm[Hg] Toribio Michaud MD Work Phone: [facility] 08-01-2022 10:47-0500 Heart rate 79 /min Toribio Michaud MD Work Phone: [facility] 08-01-2022 10:47-0500 Respiratory rate 16 /min Toribio Michaud MD Work Phone: [facility] 08-01-2022 10:47-0500 SaO2% (BldA) [Mass fraction] 99 % Toribio Michaud MD Work Phone: [facility] 08-01-2022 10:47-0500 Systolic blood pressure 111 mm[Hg] Torbiio Michaud MD Work Phone: [facility] 07-24-2022 10:16-0500 Body temperature 98.1 [degF] Chair Hernando Work Phone: [facility] 07-24-2022 10:16-0500 Diastolic blood pressure 82 mm[Hg] Chair Hernando Work Phone: [facility] 07-24-2022 10:16-0500 Heart rate 68 /min Chair Chitra Work Phone: [facility] 07-24-2022 10:16-0500 Respiratory rate 16 /min Chair Hernando Work Phone: [facility] 07-24-2022 10:16-0500 Systolic blood pressure 129 mm[Hg] Chair Chitra Work Phone: [facility] 07-23-2022 12:10-0500 Body temperature 97.3 [degF] Toribio Michaud MD Work Phone: [facility] 07-23-2022 12:10-0500 Body weight 76.02 kg Toribio Michaud MD Work Phone: [facility] 07-23-2022 12:10-0500 Diastolic blood pressure 87 mm[Hg] Toribio Michaud MD Work Phone: [facility] 07-23-2022 12:10-0500 Heart rate 83 /min Toribio Michaud MD Work Phone: [facility] 07-23-2022 12:10-0500 Respiratory rate 16 /min Toribio Michaud MD Work Phone: [facility] 07-23-2022 12:10-0500 SaO2% (BldA) [Mass fraction] 98 % Toribio Michaud MD Work Phone: [facility] 07-23-2022 12:10-0500 Systolic blood pressure 137 mm[Hg] Toribio Michaud MD Work Phone: [facility] 07-22-2022 10:14-0500 Body temperature 98.01 [degF] Chair Chitra Work Phone: [facility] 07-22-2022 10:14-0500 Diastolic blood pressure 80 mm[Hg] Chair Hernando Work Phone: [facility] 07-22-2022 10:14-0500 Heart rate 84 /min Chair Hernando Work Phone: [facility] 07-22-2022 10:14-0500 Respiratory rate 16 /min Chair Hernando Work Phone: [facility] 07-22-2022 10:14-0500 SaO2% (BldA) [Mass fraction] 98 % Chair Chitra Work Phone: [facility] 07-22-2022 10:14-0500 Systolic blood pressure 134 mm[Hg] Chair Hernando Work Phone: [facility] 07-19-2022 10:18-0500 Body temperature 98.2 [degF] Chair Hernando Work Phone: [facility] 07-19-2022 10:18-0500 Diastolic blood pressure 76 mm[Hg] Chair Hernando Work Phone: [facility] 07-19-2022 10:18-0500 Heart rate 82 /min Chair Hernando Work Phone: [facility] 07-19-2022 10:18-0500 Respiratory rate 18 /min Chair Hernando Work Phone: [facility] 07-19-2022 10:18-0500 SaO2% (BldA) [Mass fraction] 99 % Chair Hernando Work Phone: [facility] 07-19-2022 10:18-0500 Systolic blood pressure 133 mm[Hg] Chair Chitra Work Phone: [facility] 07-18-2022 12:28-0500 Body temperature 97.9 [degF] Toribio Michaud MD Work Phone: [facility] 07-18-2022 12:28-0500 Body weight 79.83 kg Toribio Michaud MD Work Phone: [facility] 07-18-2022 12:28-0500 Diastolic blood pressure 85 mm[Hg] Toribio Michaud MD Work Phone: [facility] 07-18-2022 12:28-0500 Heart rate 79 /min Toribio Michaud MD Work Phone: [facility] 07-18-2022 12:28-0500 Respiratory rate 16 /min Toribio Michaud MD Work Phone: [facility] 07-18-2022 12:28-0500 SaO2% (BldA) [Mass fraction] 98 % Toribio Michaud MD Work Phone: [facility] 07-18-2022 12:28-0500 Systolic blood pressure 138 mm[Hg] Toribio Michaud MD Work Phone: [facility] 07-17-2022 10:21-0500 Body height 170.2 cm Paco Bonds MD Work Phone: [facility] 07-17-2022 10:21-0500 Body temperature 97.2 [degF] Paco Bonds MD Work Phone: [facility] 07-17-2022 10:21-0500 Body weight 77.02 kg Paco Bonds MD Work Phone: [facility] 07-17-2022 10:21-0500 Diastolic blood pressure 70 mm[Hg] Paco Bonds MD Work Phone: [facility] 07-17-2022 10:21-0500 Heart rate 78 /min Paco Bonds MD Work Phone: [facility] 07-17-2022 10:21-0500 Respiratory rate 16 /min Paco Bonds MD Work Phone: [facility] 07-17-2022 10:21-0500 SaO2% (BldA) [Mass fraction] 100 % Paco Bonds MD Work Phone: [facility] 07-17-2022 10:21-0500 Systolic blood pressure 133 mm[Hg] Paco Bonds MD Work Phone: [facility] 07-12-2022 10:13-0500 Body temperature 98.4 [degF] Chair Hernando Work Phone: [facility] 07-12-2022 10:13-0500 Diastolic blood pressure 74 mm[Hg] Chair Hernando Work Phone: [facility] 07-12-2022 10:13-0500 Heart rate 78 /min Chair Hernando Work Phone: [facility] 07-12-2022 10:13-0500 Respiratory rate 18 /min Chair Hernando Work Phone: [facility] 07-12-2022 10:13-0500 SaO2% (BldA) [Mass fraction] 99 % Chair Hernando Work Phone: [facility] 07-12-2022 10:13-0500 Systolic blood pressure 110 mm[Hg] Chair Hernando Work Phone: [facility] 07-11-2022 12:09-0500 Body temperature 98.2 [degF] Toribio Michaud MD Work Phone: [facility] 07-11-2022 12:09-0500 Body weight 77.2 kg Toribio Michaud MD Work Phone: [facility] 07-11-2022 12:09-0500 Diastolic blood pressure 74 mm[Hg] Toribio Michaud MD Work Phone: [facility] 07-11-2022 12:09-0500 Heart rate 63 /min Toribio Michaud MD Work Phone: [facility] 07-11-2022 12:09-0500 Respiratory rate 16 /min Toribio Michaud MD Work Phone: [facility] 07-11-2022 12:09-0500 SaO2% (BldA) [Mass fraction] 99 % Toribio Michaud MD Work Phone: [facility] 07-11-2022 12:09-0500 Systolic blood pressure 145 mm[Hg] Toribio Michaud MD Work Phone: [facility] 07-10-2022 09:07-0500 Body height 170.2 cm Gerardo Mckinnon APRN.COMMUNITY RESOURCE OFFICER Work Phone: [facility] 07-10-2022 09:07-0500 Body temperature 97.9 [degF] Gerardo Mckinnon APRN.COMMUNITY RESOURCE OFFICER Work Phone: [facility] 07-10-2022 09:07-0500 Body weight 77.02 kg Gerardo Mckinnon APRN.COMMUNITY RESOURCE OFFICER Work Phone: [facility] 07-10-2022 09:07-0500 Diastolic blood pressure 68 mm[Hg] Gerardo Mckinnon APRN.COMMUNITY RESOURCE OFFICER Work Phone: [facility] 07-10-2022 09:07-0500 Heart rate 87 /min Gerardo Mckinnon APRN.COMMUNITY RESOURCE OFFICER Work Phone: [facility] 07-10-2022 09:07-0500 Respiratory rate 16 /min Gerardo Mckinnon APRN.COMMUNITY RESOURCE OFFICER Work Phone: [facility] 07-10-2022 09:07-0500 SaO2% (BldA) [Mass fraction] 97 % Gerardo Mckinnon APRN.COMMUNITY RESOURCE OFFICER Work Phone: [facility] 07-10-2022 09:07-0500 Systolic blood pressure 147 mm[Hg] Gerardo Mckinnon APRN.COMMUNITY RESOURCE OFFICER Work Phone: [facility] 07-03-2022 12:15-0500 Body temperature 96.69 [degF] Toribio Michaud MD Work Phone: [facility] 07-03-2022 12:15-0500 Body weight 76.66 kg Toribio Michaud MD Work Phone: [facility] 07-03-2022 12:15-0500 Diastolic blood pressure 87 mm[Hg] Toribio Michaud MD Work Phone: [facility] 07-03-2022 12:15-0500 Heart rate 82 /min Toribio Michaud MD Work Phone: [facility] 07-03-2022 12:15-0500 Respiratory rate 18 /min Toribio Michaud MD Work Phone: [facility] 07-03-2022 12:15-0500 SaO2% (BldA) [Mass fraction] 96 % Toribio Michaud MD Work Phone: [facility] 07-03-2022 12:15-0500 Systolic blood pressure 153 mm[Hg] Toribio Michaud MD Work Phone: [facility] 06-28-2022 10:25-0500 Body temperature 98.1 [degF] Chair Chitra Work Phone: [facility] 06-28-2022 10:25-0500 Diastolic blood pressure 55 mm[Hg] Chair Hernando Work Phone: [facility] 06-28-2022 10:25-0500 Heart rate 76 /min Chair Chitra Work Phone: [facility] 06-28-2022 10:25-0500 Respiratory rate 16 /min Chair Chitra Work Phone: [facility] 06-28-2022 10:25-0500 SaO2% (BldA) [Mass fraction] 98 % Chair Chitra Work Phone: [facility] 06-28-2022 10:25-0500 Systolic blood pressure 127 mm[Hg] Chair Chitra Work Phone: [facility] 06-26-2022 12:42-0500 Body temperature 96.69 [degF] Toribio Michaud MD Work Phone: [facility] 06-26-2022 12:42-0500 Body weight 76.11 kg Toribio Michaud MD Work Phone: [facility] 06-26-2022 12:42-0500 Diastolic blood pressure 78 mm[Hg] Toribio Michaud MD Work Phone: [facility] 06-26-2022 12:42-0500 Heart rate 74 /min Toribio Michaud MD Work Phone: [facility] 06-26-2022 12:42-0500 Respiratory rate 18 /min Toribio Michaud MD Work Phone: [facility] 06-26-2022 12:42-0500 SaO2% (BldA) [Mass fraction] 100 % Toribio Michaud MD Work Phone: [facility] 06-26-2022 12:42-0500 Systolic blood pressure 135 mm[Hg] Toribio Michaud MD Work Phone: [facility] 06-24-2022 11:41-0500 Body height 170.2 cm Gerardo Mckinnon APRN.COMMUNITY RESOURCE OFFICER Work Phone: [facility] 06-24-2022 11:41-0500 Body temperature 97.59 [degF] Gerardo Mckinnon APRN.COMMUNITY RESOURCE OFFICER Work Phone: [facility] 06-24-2022 11:41-0500 Body weight 75.66 kg Gerardo Mckinnon APRN.COMMUNITY RESOURCE OFFICER Work Phone: [facility] 06-24-2022 11:41-0500 Diastolic blood pressure 71 mm[Hg] Gerardo Mckinnon APRN.COMMUNITY RESOURCE OFFICER Work Phone: [facility] 06-24-2022 11:41-0500 Heart rate 90 /min Gerardo Mckinnon APRN.COMMUNITY RESOURCE OFFICER Work Phone: [facility] 06-24-2022 11:41-0500 Respiratory rate 16 /min Gerardo Mckinnon APRN.COMMUNITY RESOURCE OFFICER Work Phone: [facility] 06-24-2022 11:41-0500 SaO2% (BldA) [Mass fraction] 99 % Gerardo Mckinnon APRN.COMMUNITY RESOURCE OFFICER Work Phone: [facility] 06-24-2022 11:41-0500 Systolic blood pressure 141 mm[Hg] Gerardo Mckinnon APRN.COMMUNITY RESOURCE OFFICER Work Phone: [facility] 06-21-2022 13:20-0500 Body temperature 97.9 [degF] Chair Chitra Work Phone: [facility] 06-21-2022 13:20-0500 Diastolic blood pressure 80 mm[Hg] Chair Chitra Work Phone: [facility] 06-21-2022 13:20-0500 Heart rate 81 /min Chair Hernando Work Phone: [facility] 06-21-2022 13:20-0500 Respiratory rate 16 /min Chair Hernando Work Phone: [facility] 06-21-2022 13:20-0500 SaO2% (BldA) [Mass fraction] 100 % Chair Hernando Work Phone: [facility] 06-21-2022 13:20-0500 Systolic blood pressure 130 mm[Hg] Chair Hernando Work Phone: [facility] 06-19-2022 14:15-0500 Body temperature 98.01 [degF] Chair Hernando Work Phone: [facility] 06-19-2022 14:15-0500 Diastolic blood pressure 62 mm[Hg] Chair Hernando Work Phone: [facility] 06-19-2022 14:15-0500 Heart rate 69 /min Chair Hernando Work Phone: [facility] 06-19-2022 14:15-0500 Respiratory rate 16 /min Chair Chitra Work Phone: [facility] 06-19-2022 14:15-0500 Systolic blood pressure 117 mm[Hg] Chair Hernando Work Phone: [facility] 06-19-2022 13:19-0500 Body temperature 97.2 [degF] Toribio Michaud MD Work Phone: [facility] 06-19-2022 13:19-0500 Body weight 76.2 kg Toribio Michaud MD Work Phone: [facility] 06-19-2022 13:19-0500 Diastolic blood pressure 72 mm[Hg] Toribio Michaud MD Work Phone: [facility] 06-19-2022 13:19-0500 Heart rate 78 /min Toribio Michaud MD Work Phone: [facility] 06-19-2022 13:19-0500 Respiratory rate 16 /min Toribio Michaud MD Work Phone: [facility] 06-19-2022 13:19-0500 SaO2% (BldA) [Mass fraction] 99 % Toribio Michaud MD Work Phone: [facility] 06-19-2022 13:19-0500 Systolic blood pressure 125 mm[Hg] Toribio Michaud MD Work Phone: [facility] 06-17-2022 13:33-0500 Body height 170.2 cm Paco Bonds MD Work Phone: [facility] 06-17-2022 13:33-0500 Body temperature 97.5 [degF] Paco Bonds MD Work Phone: [facility] 06-17-2022 13:33-0500 Body weight 75.75 kg Paco Bonds MD Work Phone: [facility] 06-17-2022 13:33-0500 Diastolic blood pressure 61 mm[Hg] Paco Bonds MD Work Phone: [facility] 06-17-2022 13:33-0500 Heart rate 79 /min Paco Bonds MD Work Phone: [facility] 06-17-2022 13:33-0500 Respiratory rate 18 /min Paco Bonds MD Work Phone: [facility] 06-17-2022 13:33-0500 SaO2% (BldA) [Mass fraction] 99 % Paco Bonds MD Work Phone: [facility] 06-17-2022 13:33-0500 Systolic blood pressure 131 mm[Hg] Paco Bonds MD Work Phone: [facility] 05-27-2022 11:01-0500 Body height 170.2 cm Paco Bonds MD Work Phone: [facility] 05-27-2022 11:01-0500 Body temperature 97.2 [degF] Paco Bonds MD Work Phone: [facility] 05-27-2022 11:01-0500 Body weight 77.38 kg Paco Bonds MD Work Phone: [facility] 05-27-2022 11:01-0500 Diastolic blood pressure 72 mm[Hg] Paco Bonds MD Work Phone: [facility] 05-27-2022 11:01-0500 Heart rate 90 /min Paco Bonds MD Work Phone: [facility] 05-27-2022 11:01-0500 Respiratory rate 16 /min Paco Bonds MD Work Phone: [facility] 05-27-2022 11:01-0500 SaO2% (BldA) [Mass fraction] 98 % Paco Bonds MD Work Phone: [facility] 05-27-2022 11:01-0500 Systolic blood pressure 150 mm[Hg] Paco Bonds MD Work Phone: [facility] 05-06-2022 10:46-0400 Body temperature 98.1 [degF] Paco Bonds MD Work Phone: [facility] 05-06-2022 10:46-0400 Body weight 77 kg Paco Bonds MD Work Phone: [facility] 05-06-2022 10:46-0400 Diastolic blood pressure 65 mm[Hg] Paco Bonds MD Work Phone: [facility] 05-06-2022 10:46-0400 Heart rate 82 /min Paco Bonds MD Work Phone: [facility] 05-06-2022 10:46-0400 Respiratory rate 16 /min Paco Bonds MD Work Phone: [facility] 05-06-2022 10:46-0400 SaO2% (BldA) [Mass fraction] 100 % Paco Bonds MD Work Phone: [facility] 05-06-2022 10:46-0400 Systolic blood pressure 126 mm[Hg] Paco Bonds MD Work Phone: [facility] 05-06-2022 09:10-0400 Body temperature 98.1 [degF] Toribio Michaud MD Work Phone: [facility] 05-06-2022 09:10-0400 Body weight 77.02 kg Toribio Michaud MD Work Phone: [facility] 05-06-2022 09:10-0400 Diastolic blood pressure 65 mm[Hg] Toribio Michaud MD Work Phone: [facility] 05-06-2022 09:10-0400 Heart rate 82 /min Toribio Michaud MD Work Phone: [facility] 05-06-2022 09:10-0400 Respiratory rate 16 /min Toribio Michaud MD Work Phone: [facility] 05-06-2022 09:10-0400 SaO2% (BldA) [Mass fraction] 100 % Toribio Michaud MD Work Phone: [facility] 05-06-2022 09:10-0400 Systolic blood pressure 126 mm[Hg] Toribio Michaud MD Work Phone: [facility] 05-02-2022 09:07-0400 Body weight 74.84 kg Phil Dougherty MD Work Phone: [facility] 05-02-2022 09:07-0400 Diastolic blood pressure 78 mm[Hg] Phil Dougherty MD Work Phone: [facility] 05-02-2022 09:07-0400 Heart rate 89 /min Phil Dougherty MD Work Phone: [facility] 05-02-2022 09:07-0400 SaO2% (BldA) [Mass fraction] 100 % Phil Dougherty MD Work Phone: [facility] 05-02-2022 09:07-0400 Systolic blood pressure 143 mm[Hg] Phil Dougherty MD Work Phone: [facility] 02-20-2022 14:21-0400 Blood Pressure Location Vitaly VAUGHN [facility] 02-20-2022 14:21-0400 Diastolic blood pressure 74 mm[Hg] Vitaly VAUGHN [facility] 02-20-2022 14:21-0400 Heart rate 72 /min Vitaly VAUGHN [facility] 08-10-2022 14:21-0400 Respiratory rate 16 /min Vitaly VAUGHN [facility] 02-20-2022 14:21-0400 Systolic blood pressure 116 mm[Hg] Vitaly VAUGHN [facility] Encounters Encounter Date Encounter Type Care Provider Facility Start: 01-10-2025 End: 01-10-2025 Bamboo flowsheet Pérez Stevie DO Work Phone: [facility] Start: 01-10-2025 End: 01-10-2025 Bamboo flowsheet Pérez Stevie DO Work Phone: [facility] Start: 01-10-2025 End: 01-10-2025 Patient encounter procedure Pérez Stevie DO Work Phone: [facility] Start: 01-10-2025 End: 01-10-2025 Periodic preventive med est patient 40-64yrs Pérez Stevie DO Work Phone: [facility] Comment on above: Well woman exam with routine gynecological exam; Encounter for screening mammogram for malignant neoplasm of breast; Postmenopausal state Start: 11-26-2024 End: 11-26-2024 Patient encounter procedure Phil Dougherty MD Work Phone: Colorectal Surgery Comment on above: Encounter for follow -up surveillance of anal cancer (Primary Dx) Start: 11-26-2024 End: 11-26-2024 ambulatory PHIL DOUGHERTY Facility:[facility] Start: 11-02-2024 End: 11-02-2024 Patient encounter procedure Toribio Michaud MD Work Phone: Radiation Oncology Comment on above: Anal cancer (HCC) (P rimary Dx) Start: 11-02-2024 End: 11-02-2024 Office outpatient visit 25 minutes Paco Bonds MD Work Phone: Hematology/Oncology Comment on above: Anal cancer (HCC) (P rimary Dx); POTS (postural orthostatic tachycardia syndrome) Start: 11-02-2024 End: 11-02-2024 ambulatory PACO BONDS Facility:[facility] Start: 10-28-2024 ambulatory TORIBIO MICHAUD Facility:[facility] Start: 10-28-2024 End: 10-28-2024 Subsequent hospital visit by physician Arrival Time Radiology Work Phone: Radiology Pet CT Start: 10-26-2024 ambulatory [facility] Facility:[facility] Start: 10-26-2024 End: 10-26-2024 Subsequent hospital visit by physician Mri [facility] (1.5t) RADIO MRI [facility] Comment on above: 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] Start: 10-22-2024 End: 10-22-2024 Clinisync Result Encounter Pérez Zhuo DO Work Phone: [facility] External Department Unsolicited Start: 10-22-2024 End: 10-22-2024 Clinisync Result Encounter Pérez Zhuo DO Work Phone: [facility] External Department Unsolicited Start: 05-28-2024 End: 05-28-2024 ambulatory SONDRA LIU Facility:[facility] Start: 05-28-2024 End: 05-28-2024 Patient encounter procedure Phil Dougherty MD Work Phone: Colorectal Surgery Comment on above: Encounter for follow -up surveillance of anal cancer (Primary Dx) Start: 04-26-2024 End: 04-26-2024 Patient encounter procedure Gerardo Mckinnon APRN.COMMUNITY RESOURCE OFFICER Work Phone: Hematology/Oncology Start: 04-26-2024 End: 04-26-2024 ambulatory Gerardo Mckinnon NON DESTRUCTIVE EVALUATION MANAGER.COMMUNITY RESOURCE OFFICER Work Phone: Hematology/Oncology Comment on above: Anal cancer (HCC) (P rimary Dx); POTS (postural orthostatic tachycardia syndrome) Start: 01-06-2024 End: 01-06-2024 ambulatory PÉREZ HUBBARD Not Available Start: 12-12-2023 End: 12-12-2023 ambulatory PHIL DOUGHERTY Facility:[facility] Start: 12-12-2023 End: 12-12-2023 Patient encounter procedure Phil Dougherty MD Work Phone: Colorectal Surgery Comment on above: Anal itching (Primar y Dx); Diarrhea, unspecified type Start: 10-31-2023 End: 10-31-2023 Patient encounter procedure [...] Dx); POTS (postural orthostatic tachycardia syndrome) Start: 10-01-2023 End: 10-01-2023 Subsequent hospital visit by physician Arrival Time Radiology Work Phone: Radiology Pet CT Comment on above: Malignant neoplasm o f anus (HCC) [C21.0] Start: 09-29-2023 End: 09-29-2023 Subsequent hospital visit by physician Mri [facility] (1.5t) RADIO MRI [facility] Comment on above: Malignant neoplasm o f anus (HCC) [C21.0] Start: 09-12-2023 Telephone encounter Toribio Michaud MD Work Phone: Cancer [facility] Comment on above: Orders Start: 05-27-2023 Telephone encounter Phil marrero MD [...] (postural orthostatic tachycardia syndrome) Start: 10-11-2022 ambulatory [facility] Facility: [facility] Start: 10-11-2022 End: 10-11-2022 Subsequent hospital visit by physician Mri [facility] Radiology Comment on above: Malignant neoplasm [...] (HCC) [C 21.0] Start: 08-16-2022 Telephone encounter Jah Whitehead Hematology/Oncology Comment on above: Care Coordination (L danette Request) Start: 08-01-2022 End: 08-01-2022 Patient encounter procedure Lab/Port Radt Chitra Work Phone: Radiation Oncology Comment on above: Anal cancer (HCC) Anal cancer (HCC) (P rimary Dx) Start: 07-26-2022 ambulatory Rossi Bradley [employer] Comment on above: Art Therapy Start: 07-25-2022 Patient encounter procedure Ccf Provider [facility] Department Start: 07-25-2022 Radiation Oncology Note [...] Start: 07-22-2022 End: 07-22-2022 ambulatory Chair 21 Chitra Work Phone: Hematology/Oncology Comment on above: Anal cancer (HCC) (P rimary Dx); POTS (postural orthostatic tachycardia syndrome) Start: 07-19-2022 End: 07-19-2022 ambulatory Chair 21 Chitra Work Phone: Hematology/Oncology Comment on above: Anal cancer (HCC) (P rimary Dx); POTS (postural orthostatic tachycardia syndrome) Start: 07-18-2022 End: 07-18-2022 Patient encounter procedure Toribio Michaud MD Work Phone: Radiation Oncology Comment on above: Anal cancer (HCC) (P rimary Dx) Start: 07-17-2022 Telephone encounter Paco ryder MD [facility] Comment on above: Referral Information [...] 07-11-[address] Work Phone: [facility] Comment on above: Anal cancer (HCC) (P rimary Dx); POTS (postural orthostatic tachycardia syndrome) Start: 07-10-2022 End: 07-10-2022 Patient encounter procedure Gerardo Mckinnon APRN.CNP Work Phone: [facility] Start: 07-03-2022 End: 07-03-2022 Patient encounter procedure Toribio Michaud MD Work Phone: Radiation Oncology Comment on above: Anal cancer (HCC) (P rimary Dx) Start: 06-28-2022 Telephone encounter Frida Torres [facility] Work Phone: Hematology/Oncology Comment on above: Medication Problem ( Lidocaine on back order) Medication Authoriza tion (Lidocaine/Hydrocortisone Gel) Start: 06-28-2022 End: 06-28-2022 ambulatory Chair 21 Chitra Work Phone: Hematology/Oncology [...] encounter procedure Gerardo Mckinnon APRN.CNP Work Phone: [facility] Start: 06-21-2022 End: 06-21-2022 ambulatory Chair 21 Chitra Work Phone: Hematology/Oncology Comment on above: Anal cancer (HCC) (P rimary Dx); POTS (postural orthostatic tachycardia syndrome) Start: 06-19-2022 Telephone encounter Jah Whitehead Hematology/Oncology Comment on above: Care Coordination (O ral Anti-Cancer Agent Follow Up) Start: 06-19-2022 End: 06-19-2022 ambulatory Chair 21 Hcitra Work Phone: Hematology/Oncology Comment on above: Anal cancer (HCC) (P rimary Dx); POTS (postural orthostatic tachycardia syndrome) Start: 06-19-2022 End: 06-19-2022 Patient encounter procedure Toribio Michaud MD Work Phone: Radiation Oncology Comment on above: Anal cancer (HCC) (P rimary Dx) Start: 06-18-2022 Refill Frida joyce [facility] Work Phone: Hematology/Oncology Comment on above: Refill Request Start: 06-17-2022 End: 06-17-2022 ambulatory Paco Bonds MD Work Phone: Hematology/Oncology Comment on above: Anal cancer (HCC) (P rimary Dx); POTS (postural orthostatic tachycardia syndrome) Start: 06-17-2022 End: 06-17-2022 Patient encounter procedure Paco Bonds MD Work Phone: [facility] Start: 06-14-2022 Telephone encounter Shital Amaya RN Work Phone: Hematology/Oncology Comment on above: Care Coordination (M edication change) Start: 06-14-2022 End: 06-14-2022 ambulatory Chair 21 Chitra Work Phone: Hematology/Oncology Comment on above: Anal cancer (HCC) (P rimary Dx); POTS (postural orthostatic tachycardia syndrome) Start: 06-12-2022 Telephone encounter Roman Jules MD Work Phone: Radiation Oncology Comment on above: Lab Orders Start: 06-03-2022 End: 06-03-2022 ambulatory Jah Whitehead RN Work Phone: Hematology/Oncology Comment on [...] (P rimary Dx) Start: 05-23-2022 Telephone encounter Jah mcwilliams RN Work Phone: Hematology/Oncology Comment on above: Care Coordination (A ntiemetics) Start: 05-21-2022 End: 05-21-2022 Subsequent hospital visit by physician Arrival Time Radiology Work Phone: Radiology Pet CT Comment on above: Anal cancer (HCC) [C 21.0] Start: 05-17-2022 Telephone encounter Frida Torres [facility] Work Phone: Hematology/Oncology Comment on above: Medication Update Start: 05-06-2022 End: 05-06-2022 ambulatory Heidi Horta LPN Radiation Oncology Comment on above: Patient Education Patient Education; O pened In Error Anal cancer (HCC) Start: 05-06-2022 End: 05-06-2022 Patient encounter procedure Paco Bonds MD Work Phone: [facility] Comment on above: Anal cancer (HCC) Start: 05-02-2022 End: 05-03-2022 ambulatory PHIL DOUGHERTY Facility[facility] Start: 05-02-2022 End: 05-02-2022 Patient encounter procedure Phil Dougherty MD Work Phone: Colorectal Surgery Comment on above: Rectal mass (Primary Dx); Anal cancer (HCC) Start: 04-24-2022 End: 04-25-[address] VITALY VAUGHN Facility:[facility] Start: 04-23-2022 Encounter for preprocedural laboratory examination DR VITALY VAUGHN [facility] Start: 04-20-2022 End: 04-21-[address] VITALY VAUGHN Facility:[facility] Start: 04-20-2022 End: 04-21-2022 Encounter for preprocedural laboratory examination DR VITALY VAUGHN Facility:[facility] Start: 03-13-[address] VITALY VAUGHN Facilit y:[facility] Start: 03-09-[address] VITALY VAUGHN Facilit y:[facility] Start: 02-20-2022 End: 02-21-2022 ambulatory Vitaly VAUGHN Facility:[facility] Start: 02-20-2022 End: 02-20-2022 Patient encounter procedure Vitaly CASPERJaime General Surgery Nill/Said Cynthia Start: 2022 ambulatory Sondra Liu Facility:[facility] Start: 02-05-2022 Encounter for genera l adult medical examination without abnormal findings DR SONDRA LIU [facility] Start: 02-04-2022 End: 02-05-[address] SONDRA LIU Facility:[facility] Start: 02-04-2022 End: 02-05-2022 Encounter for general adult medical examination without abnormal findings DR SONDRA LIU Facility:[facility] Start: 12-28-2021 End: 12-29-[address] SONDRA LIU Facility:[facility] Start: 12-05-[address] SONDRA LIU Facility :[facility] Procedures Date Procedure Procedure Detail Performing Clinician Start: 10-28-2024 Ct abdomen w/contrast material Toribio marrero MD Work Phone: Start: 10-28-2024 Ct thorax w/contrast material Toribio Michaud MD Work Phone: Start: 10-28-2024 Blood count complete auto&auto difrntl wbc Gerardo Dean NON DESTRUCTIVE EVALUATION MANAGER.COMMUNITY RESOURCE OFFICER Work Phone: Start: 10-26-2024 Mri pelvis w/o & w/contrast material Toribio Michaud MD Work Phone: Start: 10-22-2024 MM TOMOSYNTHESIS SCREENING BI Pérez coleman DO Work Phone: Start: 10-01-2023 Ct thorax w/o contrast material [...] VAUGHN Excision of cyst of ovary Mayelin marcelokirstin VAUGHN Plan of Treatment Date Care Activity Detail Author Start: 10-29-2027 Diabetes Screening Diabetes Screening [facility] Start: 04-26-2027 Diabetes Screening Diabetes Screening [facility] Start: 10-26-2026 Diabetes Screening Diabetes Screening [facility] Start: 04-28-2026 Diabetes Screening Diabetes Screening [facility] Start: 01-16-2026 End: 01-16-2026 Patient encounter procedure 01/16/2026 10:00 AM EDT Office Visit [facility] [address] [place] [address] Pérez Hubbard DO [address] [place] [address] [facility] Start: 11-11-2025 End: 11-11-2025 Patient encounter procedure 11/11/2025 2:30 PM EDT Office Visit Radiation Oncology [address] [address] Toribio Michaud MD [address] [address] 1 year follow up Radiation Oncology Comment on above: 1 year follow up Start: 11-03-2025 End: 11-03-2025 Patient encounter procedure 11/03/2025 10:[address] [facility] [place] [id number] [place], [place] [id number] MRI Rectum W/ & W/O IVC [facility] Radiology MRI Comment on above: MRI Rectum W/ & W/O IVC Start: 11-02-2025 End: 12-02-2025 CT Abdomen W contrast IV CT ABDOMEN W IVCON Radiology Routine Expected: 11/02/2025, Expires: 12/02/2025 [facility] Comment on above: Expected: 11/02/2025, Expires: Start: 11-02-2025 End: 12-02-2025 CT Chest W contrast IV CT CHEST W IVCON Radiology Routine Expected: 11/02/2025, Expires: 12/02/2025 [facility] Comment on above: Expected: 11/02/2025, Expires: Start: 11-02-2025 End: 12-02-2025 MR Pelvis WO contrast MRI RECTUM WO/W IVCON Radiology Routine Expected: 11/02/2025, Expires: 12/02/2025 [facility] Work Phone: Comment on above: Expected: 11/02/2025, Expires: Start: 10-28-2025 DIABETES SCREEN DIABETES SCREEN [facility] Start: 10-27-2025 End: 10-27-2025 Patient encounter procedure 10/27/2025 2:15 PM EDT Appointment Radiology Pet CT [address] [address] CT chest/abdom w/IVC Radiology Pet CT Comment on above: CT chest/abdom w/IVC Start: 08-28-2025 DIABETES SCREEN DIABETES SCREEN [facility] Start: 08-01-2025 DIABETES SCREEN DIABETES SCREEN [facility] Start: 07-17-2025 DIABETES SCREEN DIABETES SCREEN [facility] Start: 07-10-2025 DIABETES SCREEN DIABETES SCREEN [facility] Start: 07-01-2025 DIABETES SCREEN DIABETES SCREEN [facility] Start: 06-24-2025 DIABETES SCREEN DIABETES SCREEN [facility] Start: 06-14-2025 DIABETES SCREEN DIABETES SCREEN [facility] Start: 06-10-2025 End: 06-10-2025 Patient encounter procedure 06/10/2025 3:00 PM EST Office Visit Colorectal Surgery [address] [address] [id number] Jeanette Wang APRN.COMMUNITY RESOURCE OFFICER [address] [place] [address] 6 months follow up per [address]. Dougherty Colorectal Surgery Comment on above: 6 [address] up [address]. Dougherty Start: 05-27-2025 DIABETES SCREEN DIABETES SCREEN [facility] Start: 05-02-2025 DIABETES SCREEN DIABETES SCREEN [facility] Start: 04-22-2025 End: 04-22-2025 Follow-up encounter 04/22/2025 2:00 PM EDT Visit (SP) Office Hematology/Oncology [address] [place] [address] Paco Bonds MD [address] [address] 6 month follow up and lab Hematology/Oncology Comment on above: 6 month follow up and lab Start: 04-22-2025 End: 04-22-2025 Patient encounter procedure 04/22/2025 1:45 PM EDT Office Visit [facility] [address] [address] 6 month follow up and lab [facility] Comment on above: 6 month follow up and lab Start: 03-14-2025 Influenza vaccination Influenza Vaccine (Season Ended) [facility] Start: 01-10-2025 End: 01-10-2026 DXA Skeletal system Views for bone density DEXA bone density Imaging Routine Postmenopausal state Expected: 01/10/2025 (Approximate), Expires: 01/10/2026 [facility] Work Phone: Comment on above: Expected: 01/10/2025 (Approximate), Expi res: 01/10/2026 Start: 01-10-2025 End: 01-10-2025 Patient encounter procedure 01/10/2025 11:00 AM EDT Office Visit [facility] [address] [place] [id number] Pérez Hubbard, [address] [place] [address] [facility] Start: 11-26-2024 End: 11-26-2024 Patient encounter procedure Colorectal S urgery Comment on above: Est Pt: 6 mo f/up Est Pt: 6 mo f/up, a nal cancer surveillance Start: 11-02-2024 End: 11-02-2024 Follow-up encounter 11/02/2024 1:40 PM EDT Visit (SP) Office Hematology/Oncology [address] [place] [address] Paco Bonds MD [address] [address] 6 month follow up lab-SEETorito Michaud after Hematology/Oncology Comment on above: 6 month follow up lab-VITO Michaud after Start: 11-02-2024 End: 11-02-[address] [facility] Comment on above: 6 month follow up lab Followup Start: 11-01-2024 End: 11-01-2024 Follow-up encounter 11/01/2024 3:00 PM EDT Visit (SP) Office Hematology/Oncology [address] [address] Paco Bonds MD [address] [address] 6 month follow up lab-SEES Jaswant before Hematology/Oncology Comment on above: 6 month follow up lab-SEES Jaswant before Start: 11-01-2024 End: 11-01-2024 Patient encounter procedure Radiation On cology Comment on above: Followup 6 month follow up la b Start: 10-28-2024 End: 10-28-2024 Patient encounter procedure 10/28/2024 10:15 AM EDT Appointment Radiology Pet CT [address] [address] CT CHEST A Radiology Pet CT Comment on above: CT CHEST A Start: 10-26-2024 End: 11-25-2024 CT Abdomen W contrast IV CT ABDOMEN W IVCON Radiology Routine Expected: 10/26/2024, Expires: 11/25/2024 [facility] Comment on above: Expected: 10/26/2024, Expires: Start: 10-26-2024 End: 11-25-2024 CT Chest W contrast IV CT CHEST W IVCON Radiology Routine Expected: 10/26/2024 (Approximate), Expires: 11/25/2024 [facility] Work Phone: Comment on above: Expected: 10/26/2024 (Approximate), Expi res: 11/25/2024 Start: 10-26-2024 End: 11-25-2024 MR Pelvis WO contrast MRI RECTUM WO/W IVCON Radiology Routine Malignant neoplasm of pelvis (HCC) Expected: 10/26/2024 (Approximate), Expires: 11/25/2024 [facility] Comment on above: Expected: 10/26/2024 (Approximate), Expi res: 11/25/2024 Start: 10-26-2024 End: 10-26-2024 Patient encounter procedure 10/26/2024 10:00 AM EDT Appointment RADIO MRI [facility] [address] [place] [id number] MRI RECTUM RADIO MRI [facility] Comment on above: MRI RECTUM Start: 10-25-2024 End: 01-24-2025 CBC W Auto Differential panel - Blood COMPLETE BLOOD COUNT AND DIFFERENTIAL Lab Routine Anal cancer (HCC) POTS (postural orthostatic tachycardia syndrome) Expected: 10/25/2024, Expires: 01/24/2025 [facility] Work Phone: Comment on above: Expected: 10/25/2024, Expires: Start: 10-25-2024 End: 01-24-2025 Comprehensive metabolic 2000 panel - Serum or Plasma COMPREHENSIVE METABOLIC PANEL Lab Routine Anal cancer (HCC) POTS (postural orthostatic tachycardia syndrome) Expected: 10/25/2024, Expires: 01/24/2025 [facility] Comment on above: Expected: 10/25/2024, Expires: Start: 04-30-2024 End: 04-30-2024 Patient encounter procedure 04/30/2024 4:00 PM EDT Office Visit Colorectal Surgery [address] [address] [place] [id number] Phil Dougherty MD HILDA MANCUSO [facility] [address] [place] [id number] est pt: 6 month follow up Colorectal Surgery Comment on above: est pt: 6 month follow up Start: 04-27-2024 End: 10-26-2024 CBC W Auto Differential panel - Blood COMPLETE BLOOD COUNT AND DIFFERENTIAL Lab Routine Anal cancer (HCC) POTS (postural orthostatic tachycardia syndrome) Expected: 04/27/2024 (Approximate), Expires: 10/26/2024 [facility] Work Phone: Comment on above: Expected: 04/27/2024 (Approximate), Expi res: 10/26/2024 Start: 04-27-2024 End: 10-26-2024 Comprehensive metabolic 2000 panel - Serum or Plasma COMPREHENSIVE METABOLIC PANEL Lab Routine Anal cancer (HCC) POTS (postural orthostatic tachycardia syndrome) Expected: 04/27/2024 (Approximate), Expires: 10/26/2024 [facility] Work Phone: Comment on above: Expected: 04/27/2024 (Approximate), Expi res: 10/26/2024 Start: 04-26-2024 End: 04-26-2024 Follow-up encounter 04/26/2024 2:45 PM EDT Visit (SP) Office Hematology/Oncology [address] [address] Paco Bonds MD [address] [place] [address] 6 month follow up with lab Hematology/Oncology Comment on above: 6 month follow up with lab Start: 04-26-2024 End: 04-26-2024 Patient encounter procedure 04/26/2024 2:30 PM EDT Office Visit [facility] [address] [address] 6 month follow up with lab [facility] Comment on above: 6 month follow up with lab Start: 03-14-2024 Covid-19 Vaccine ( season) Covid-19 Vaccine ( season) [facility] Start: 03-14-2024 Covid-19 Vaccine ( season) Covid-19 Vaccine ( season) [facility] Start: 03-14-2024 Influenza vaccination [facility] Start: 10-28-2023 End: 04-28-2024 CBC W Auto Differential panel - Blood CBC + DIFF Lab Routine Anal cancer (HCC) POTS (postural orthostatic tachycardia syndrome) Expected: 10/28/2023 (Approximate), Expires: 04/28/2024 [facility] Work Phone: Comment on above: Expected: 10/28/2023 (Approximate), Expi res: 04/28/2024 Start: 10-28-2023 End: 04-28-2024 Comprehensive metabolic 2000 panel - Serum or Plasma COMP METABOLIC PANEL Lab Routine Anal cancer (HCC) POTS (postural orthostatic tachycardia syndrome) Expected: 10/28/2023 (Approximate), Expires: 04/28/2024 [facility] Work Phone: Comment on above: Expected: 10/28/2023 (Approximate), Expi res: 04/28/2024 Start: 07-25-2023 End: 12-05-2023 Ct thorax w/o contrast material CT CHEST WO IVCON Radiology Routine Malignant neoplasm of anus (HCC) Expected: 07/25/2023, Expires: 12/05/2023 [facility] Work Phone: Comment on above: Expected: 07/25/2023, Expires: Start: 07-25-2023 End: 12-05-2023 Mri pelvis w/o & w/contrast material MRI RECTUM WO/W IVCON Radiology Routine Malignant neoplasm of anus (HCC) Expected: 07/25/2023, Expires: 12/05/2023 [facility] Work Phone: Comment on above: Expected: 07/25/2023, Expires: Start: 07-14-2023 Behavioral Health Screening Behavioral Health Screening [facility] Start: 07-14-2023 Depression Assessment Depression Assessment [facility] Start: 04-29-2023 End: 10-29-2023 CBC W Auto Differential panel - Blood CBC + DIFF Lab Routine Anal cancer (HCC) POTS (postural orthostatic tachycardia syndrome) Expected: 04/29/2023 (Approximate), Expires: 10/29/2023 [facility] Work Phone: Comment on above: Expected: 04/29/2023 (Approximate), Expi res: 10/29/2023 Start: 04-29-2023 End: 10-29-2023 Comprehensive metabolic 2000 panel - Serum or Plasma COMP METABOLIC PANEL Lab Routine Anal cancer (HCC) POTS (postural orthostatic tachycardia syndrome) Expected: 04/29/2023 (Approximate), Expires: 10/29/2023 [facility] Work Phone: Comment on above: Expected: 04/29/2023 (Approximate), Expi res: 10/29/2023 Start: 04-28-2023 End: 06-28-2023 25-hydroxyvitamin D3 [Mass/volume] in Serum or Plasma VITAMIN D 25 HYDROXY Lab Routine Encounter for screening for osteoporosis Symptomatic menopausal or female climacteric states Rectal cancer (HCC) Expected: 04/28/2023, Expires: 06/28/2023 [facility] Work Phone: Comment on above: Expected: 04/28/2023, Expires: Start: 03-14-2023 Covid-19 Vaccine () Covid-19 Vaccine () [facility] Start: 03-14-2023 Influenza vaccination [facility] Start: 12-02-2022 End: 09-04-2023 CBC W Auto Differential panel - Blood CBC + DIFF Lab Routine POTS (postural orthostatic tachycardia syndrome) Anal cancer (HCC) Expected: 12/02/2022 (Approximate), Expires: 09/04/2023 [facility] Work Phone: Comment on above: Expected: 12/02/2022 (Approximate), Expi res: 09/04/2023 Start: 12-02-2022 End: 09-04-2023 Comprehensive metabolic 2000 panel - Serum or Plasma COMP METABOLIC PANEL Lab Routine POTS (postural orthostatic tachycardia syndrome) Anal cancer (HCC) Expected: 12/02/2022 (Approximate), Expires: 09/04/2023 [facility] Work Phone: Comment on above: Expected: 12/02/2022 (Approximate), Expi res: 09/04/2023 Start: 10-14-2022 End: 10-04-2023 Mri pelvis w/o & w/contrast material MRI RECTUM WO/W IVCON Radiology Routine Malignant neoplasm of anus (HCC) Expected: 10/14/2022, Expires: 10/04/2023 [facility] Work Phone: Comment on above: Expected: 10/14/2022, Expires: Start: 08-28-2022 End: 07-17-2023 CBC W Auto Differential panel - Blood CBC + DIFF Lab Routine Anal cancer (HCC) Expected: 08/28/2022 (Approximate), Expires: 07/17/2023 [facility] Work Phone: Comment on above: Expected: 08/28/2022 (Approximate), Expi res: 07/17/2023 Start: 08-28-2022 End: 07-17-2023 Comprehensive metabolic 2000 panel - Serum or Plasma COMP METABOLIC PANEL Lab Routine Anal cancer (HCC) Expected: 08/28/2022 (Approximate), Expires: 07/17/2023 [facility] Work Phone: Comment on above: Expected: 08/28/2022 (Approximate), Expi res: 07/17/2023 Start: 08-28-2022 End: 08-16-2023 Ct abdomen & pelvis w/contrast material CT ABD/PEL W IVCON Radiology Routine Anal cancer (HCC) Expected: 08/28/2022 (Approximate), Expires: 08/16/2023 [facility] Work Phone: Comment on above: Expected: 08/28/2022 (Approximate), Expi res: 08/16/2023 Start: 08-28-2022 End: 08-16-2023 CT CHEST W IVCON CT CHEST W IVCON Radiology Routine Anal cancer (HCC) Expected: 08/28/2022 (Approximate), Expires: 08/16/2023 [facility] Work Phone: Comment on above: Expected: 08/28/2022 (Approximate), Expi res: 08/16/2023 Start: 07-14-2022 DEPRESSION ASSESSMENT DEPRESSION ASSESSMENT [facility] Start: 07-02-2022 End: 09-01-2022 CBC W Auto Differential panel - Blood CBC + DIFF Lab Routine Anal cancer (HCC) POTS (postural orthostatic tachycardia syndrome) Expected: 07/02/2022, Expires: 09/01/2022 [facility] Work Phone: Comment on above: Expected: 07/02/2022, Expires: Start: 07-02-2022 End: 09-01-2022 Comprehensive metabolic 2000 panel - Serum or Plasma COMP METABOLIC PANEL Lab Routine Anal cancer (HCC) POTS (postural orthostatic tachycardia syndrome) Expected: 07/02/2022, Expires: 09/01/2022 [facility] Work Phone: Comment on above: Expected: 07/02/2022, Expires: 3 Start: 06-12-2022 End: 08-12-2022 Choriogonadotropin ( test) [Presence] in Urine HCG QUAL UR Lab Routine Anal cancer (HCC) Expected: 06/12/2022, Expires: 08/12/2022 [facility] Work Phone: Comment on above: Expected: 06/12/2022, Expires: 3 Start: 03-14-2022 Influenza vaccination INFLUENZA (#1) [facility] Start: 07-14-2021 DEPRESSION ASSESSMENT DEPRESSION ASSESSMENT [facility] Start: 2019 Pneumococcal Vaccine: 50+ (1 of 1 - PCV) Pneumococcal Vaccine: 50+ (1 of 1 - PCV) [facility] Start: 2019 SHINGRIX VACCINE (1 of 2) SHINGRIX VACCINE (1 of 2) [facility] Start: 2014 COLOGUARD (FIT-DNA) COLOGUARD (FIT-DNA) [facility] Start: 2014 Colonoscopy COLONOSCOPY [facility] Start: 2014 COLORECTAL CANCER SCREENING COLORECTAL CANCER SCREENING [facility] Start: [address] COLONOGRAPHY [facility] Start: 2014 FECAL OCCULT BLOOD FECAL OCCULT BLOOD [facility] Start: 2014 Lipid 1996 panel - Serum or Plasma Lipid Screening [facility] Start: 2014 Lipid panel Lipid Screening [facility] Start: 2014 LIPID SCREEN LIPID SCREEN [facility] Start: 2014 Screening for malignant neoplasm of colon [facility] Start: 2014 SIGMOIDOSCOPY SIGMOIDOSCOPY [facility] Start: 2009 Mammography [facility] Start: 2009 Screening for malignant neoplasm of breast Mammogram Screening [facility] Start: 1999 HPV TESTING HPV TESTING [facility] Start: 1999 Screening for malignant neoplasm of cervix HPV Testing [facility] Start: 1990 PAP TESTING PAP TESTING [facility] Start: 1990 Screening for malignant neoplasm of cervix [facility] Start: 02-08-1988 Hepatitis B Vaccine (1 of 3 - 19+ 3-dose series) Hepatitis B Vaccine (1 of 3 - 19+ 3-dose series) [facility] Start: 02-08-1988 SHINGRIX VACCINE (1 of 2) SHINGRIX VACCINE (1 of 2) [facility] Start: 02-08-1988 Urine microalbumin profile [facility] Start: 1987 Anxiety Screening Anxiety Screening [facility] Start: 1987 Depression Screening Depression Screening [facility] Start: 1987 HEPATITIS C SCREENING HEPATITIS C SCREENING [facility] Start: 1987 Hepatitis C screening Hepatitis C Screening [facility] Start: 1987 HIV SCREENING HIV SCREENING [facility] Start: 1987 HIV screening HIV Screening [facility] Start: 1975 PNEUMOCOCCAL (1 - PCV) PNEUMOCOCCAL (1 - PCV) [facility] Start: 1969 COVID-19 VACCINE (#1) COVID-19 VACCINE (#1) [facility] Start: 1969 HEPATITIS B (1 of 3 - 3-dose series) HEPATITIS B (1 of 3 - 3-dose series) [facility] Start: 1969 Hepatitis B Vaccine (1 of 3 - 3-dose series) Hepatitis B Vaccine (1 of 3 - 3-dose series) [facility] End: 05-27-2023 CBC W Auto Differential panel - Blood CBC + DIFF Lab Routine Anal cancer (HCC) Once per week for 10 Occurrences starting 05/27/2022 until 05/27/2023, 1 completed [facility] Work Phone: Comment on above: Once per week for 10 Occurrences startin g 05/27/2022 until 05/27/2023, 1 completed End: 05-27-2023 Comprehensive metabolic 2000 panel - Serum or Plasma COMP METABOLIC PANEL Lab Routine Anal cancer (HCC) Once per week for 10 Occurrences starting 05/27/2022 until 05/27/2023, 1 completed [facility] Work Phone: Comment on above: Once per week for 10 Occurrences startin g 05/27/2022 until 05/27/2023, 1 completed End: 06-01-2023 Ct abdomen w/contrast material CT ABDOMEN W IVCON Radiology Routine Anal cancer (HCC) 1 Occurrences starting 05/02/2022 until 06/01/2023 [facility] Work Phone: Comment on above: 1 Occurrences starting 05/02/2022 until 06/01/2023 End: 06-01-2023 CT CHEST W IVCON CT CHEST W IVCON Radiology Routine Anal cancer (HCC) 1 Occurrences starting 05/02/2022 until 06/01/2023 [facility] Work Phone: Comment on above: 1 Occurrences starting 05/02/2022 until 06/01/2023 End: 10-11-2024 CT Chest WO contrast CT CHEST WO IVCON Radiology Routine Malignant neoplasm of anus (HCC) 1 Occurrences starting 09/12/2023 until 10/11/2024 [facility] Work Phone: Comment on above: 1 Occurrences starting 09/12/2023 until 10/11/2024 CT SIM PLANNING RADI ATION ONCOLOGY CT SIM PLANNING RADIATION ONCOLOGY Radiology Routine Anal cancer (HCC) Ordered: 05/27/2022 [facility] Work Phone: Comment on above: Ordered: 05/27/2022 End: 03-11-2024 DXA-AXIAL SKELETON DXA-AXIAL SKELETON Radiology Routine Encounter for screening for osteoporosis Symptomatic menopausal or female climacteric states Rectal cancer (HCC) 1 Occurrences starting 02/12/2023 until 03/11/2024 [facility] Work Phone: Comment on above: 1 Occurrences starting 02/12/2023 until 03/11/2024 End: 10-11-2024 MR Abdomen WO and W contrast IV MRI ABDOMEN WO/W IVCON Radiology Routine Malignant neoplasm of anus (HCC) 1 Occurrences starting 09/12/2023 until 10/11/2024 [facility] Work Phone: Comment on above: 1 Occurrences starting 09/12/2023 until 10/11/2024 End: 10-11-2024 MR Pelvis WO contrast MRI RECTUM WO/W IVCON Radiology Routine Malignant neoplasm of anus (HCC) 1 Occurrences starting 09/12/2023 until 10/11/2024 [facility] Work Phone: Comment on above: 1 Occurrences starting 09/12/2023 until 10/11/2024 End: 06-01-2023 Mri pelvis w/o & w/contrast material MRI RECTUM WO/W IVCON Radiology Routine Anal cancer (HCC) 1 Occurrences starting 05/02/2022 until 06/01/2023 [facility] Work Phone: Comment on above: 1 Occurrences starting 05/02/2022 until 06/01/2023 THIN PREP TIS PAP AN D HR HPV DNA THIN PREP TIS PAP AND HR HPV DNA Pathology and Cytology Routine Well woman exam with routine gynecological exam Ordered: 01/10/2025 [facility] Comment on above: Ordered: 01/10/2025 [facility] Payers Date Payer Category Payer Medicaid (Managed Care) [employer] [id number] 2019 Medicaid [id number] 2013 Unknown [facility] O [id number] 2013-Present [phone] [address] [place] [address] O [id number] 1969 Unknown [id number]. 593 1969 Unknown [id number]. 593 1969 Unknown [id number] [id number]. 593 1969 Unknown [id number] [id number]. 593 1969 Unknown [id number] [id number]. 593 1969 Unknown [id number] [id number]. 593 1969 Unknown [id number] [id number]. 593 1969 Unknown [id number] [id number]. 593 1969 Unknown [id number] [id number]. 727 1969 Unknown [id number] [id number]. 727 1969 Unknown [id number] [id number]. 727 1969 Unknown [id number]. 1259 1959 Medicaid [id number] 1959 Private Health Insurance [id number] 1959 Self-pay [id number] Social History Date Type Detail Facility Start: 02-20-2022 End: 01-10-2025 Tobacco smoking status Never smoked tobacco (finding) [facility] Tobacco smoking status Never [facility] Start: 01-16-2023 End: 01-10-2025 Sex Assigned At Female [facility] Start: 05-02-2022 End: 01-10-2025 Tobacco use and exposure Smokeless tobacco non-user [facility] Start: 05-02-2022 End: 11-26-2024 Alcohol intake Current non-drinker of alcohol (finding) [facility] Start: 1970 Sex Assigned At Not on file [facility] Start: 04-22-2022 End: 05-02-2022 Exposure to SARS-CoV-2 (event) Yes [facility] Start: 04-26-2022 End: 06-17-2022 Exposure to SARS-CoV-2 (event) Not sure [facility] Start: 01-16-2023 End: 01-10-2025 History of Social function [facility] Tobacco smoking status NHIS Tobacco smoking consumption unknown [facility] Start: 01-10-2025 Alcoholic beverage intake Ex-drinker (finding) [facility] NEGATED: Highlighted rowStart: NINF History of tobacco use Passive smoker [facility] Functional Status Date Assessment Result Facility 02-20-2022 Functional Status N/A [facility] Clinical Notes 02-20-2022 to 01-10-2025 Shannen Sheppard LPN - 01/10/2025 11:00 AM Phil Lacy MD - 11/26/2024 3:40 PM Toribio Harding MD - 11/02/2024 2:34 PM EDTPatient InstructionsAbhyankar, Paco, MD - 11/02/2024 1:40 PM EDT Note Date & Type Note Facility 01-10-2025 History of Present illness Narrative Reason for Appointment: Patient ID: Cherie Reyna is a 54 y.o. female who presents for Well Women Visit Patient presents today for Annual Exam. MEDICATIONS Current Outpatient Medications Medication Instructions calcium carbonate (Super Calcium) 1500 (600 Ca) MG tablet Every 24 hours cholecalciferol (Vitamin D-3) 50 MCG (1999 UT) capsule 1 capsule, Every 24 hours fludrocortisone [...] Father Richi Payne Cancer Father's Brother Uncle ePng Cancer Father's Brother Uncle Peng SURGICAL HISTORY [...] nursing note reviewed. Exam conducted with a coffee shop aide present. Vitals: There is no height or [...] them. Patient can also view results via [employer]. I reinforced importance of condom use for [...] and avoiding tobacco and excessive alcohol. Discussed purpose of DEXA in assessing fracture risk and monitoring bone density. Patient advised results will be reviewed upon completion and next steps discussed as needed. Follow Up: Patient is to return to our office in one year for annual exam unless needed otherwise. Documented by Shannen Sheppard LPN on behalf of: Pérez Hubbard DO documented in this encounter [facility] 11-26-2024 History of Present illness Narrative COLORECTAL SURGERY November 26, 2024 Kirt Reyna 54 year old Chief Complaint: anal cancer surveillance History of Present Illness: Kirt Reyna is a 54 year old female presents today for anal cancer surveillance. She was last seen in office 05/28/25. Oncology - Dr. Bonds MRI rectum 10/26/24 Since 09/29/2023, post treatment primary tumor assessment: - Stable appearance of fibrosis/scarring at the site of the previously treated anorectal neoplasm, with no evidence of residual/recurrent disease. CT Abdomen 10/28/24 No metastatic disease in the abdomen. CT chest 10/28/24 No metastatic disease in the chest. She feels great. Normal bowel movements. No issues with urination. No complaints PAST MEDICAL HISTORY Diagnosis Date Hiatal hernia [...] FOR NAUSEA AND VOMITING (Patient taking differently: No sig reported) 90 tablet 1 Cvvtrjtci-Mgwcpcgbzkyxmp-Hocz 2.8-0.55 % gel Use 1 Applicator by [...] No Drug use: No Physical Exam: BP 146/69 (BP Site: Left Arm, BP Position: Sitting, BP Cuff Size: Regular Adult) Pulse 88 Temp 36.4 C (97.5 F) SpO2 99% General Appearance: Well appearing, alert, in no acute distress, well-hydrated, well nourished. Anorectal: External exam reveals no lesions. Digital rectal exam reveals no gross blood or masses School Counsellor present: Yes, Padmini Garcia Anoscopy: The patient was placed in chest-knee position. After digital exam with a lubricated finger, the scope was easily inserted. Posterior scar noted. Otherwise normal mucosa was noted. Anoscopy completed. The sensitive examination was discussed with the Patient or Patient's Authorized Youth Leader. As applicable, any other physician, advance practice provider, medical student, or other health professional student that will be observing or involved in the sensitive examination for educational or training purposes was discussed with the Patient or Authorized Youth Leader. The Patient or Authorized Youth Leader has agreed to proceed with the sensitive examination. (Sensitive examination includes inspection and/or palpation of the breasts, pelvis, prostate and anorectal regions) Assessment Assessment and Plan: Kirt Reyna is a 54 year old female with history of anal cancer status post chemoradiation now about 2.5 years out from diagnosis. She will need inguinal lymph node and anoscopic exams every 6 months for 5 years total. Recent imaging did not show any evidence of residual disease. She will follow-up with Jayda Wang in 6 months for her next exam and to be scheduled for her every 6-month anoscopic exam and inguinal lymph node check with Jayda Medical Decision Making: Data Reviewed: Tests & Documents Reviewed/ordered: Review of prior notes from myself Review of Pathology Review of Imaging: CT Abdomen, CT Pelvis, MRI Pelvis, CT Chest Review of Labs: CBC, BMP Review of Procedures / Tests: Colonoscopy I have independently interpreted: CT Abdomen, MRI Pelvis, CT Chest Risk of morbidity, mortality and/or complications of treatment plan: high Phil Dougherty MD Colorectal Surgery documented in this encounter [facility] 11-26-2024 Note HNO ID: [id number] Author: PHIL DOUGHERTY MD Service: ? Author Type: Physician Type: Progress Notes Filed: 11/26/2024 16:45 Note Text: COLORECTAL SURGERY November 26, 2024 Kirt Reyna 54 year old Chief Complaint: anal cancer surveillance History of Present Illness: Kirt Reyna is a 54 year old female presents today for anal cancer surveillance. She was last seen in office 05/28/25. Oncology - Dr. Bonds MRI rectum 10/26/24 Since 09/29/2023, post treatment primary tumor assessment: - Stable appearance of fibrosis/scarring at the site of the previously treated anorectal neoplasm, with no evidence of residual/recurrent disease. CT Abdomen 10/28/24 No metastatic disease in the abdomen. CT chest 10/28/24 No metastatic disease in the chest. She feels great. Normal bowel movements. No issues with urination. No complaints PAST MEDICAL HISTORY Diagnosis Date Hiatal hernia [...] FOR NAUSEA AND VOMITING (Patient taking differently: No sig reported) 90 tablet 1 Cckewqoxn-Mfhmbmlbugenph-Idkh 2.8-0.55 % gel Use 1 Applicator by [...] No Drug use: No Physical Exam: BP 146/69 (BP Site: Left Arm, BP Position: Sitting, BP Cuff Size: Regular Adult) Pulse 88 Temp 36.4 ?C (97.5 ?F) SpO2 99% General Appearance: Well appearing, alert, in no acute distress, well-hydrated, well nourished. Anorectal: External exam reveals no lesions. Digital rectal exam reveals no gross blood or masses School Counsellor present: Yes, Padmini Garcia Anoscopy: The patient was placed in chest-knee position. After digital exam with a lubricated finger, the scope was easily inserted. Posterior scar noted. Otherwise normal mucosa was noted. Anoscopy completed. The sensitive examination was discussed with the Patient or Patient's Authorized Youth Leader. As applicable, any other physician, advance practice provider, medical student, or other health professional student that will be observing or involved in the sensitive examination for educational or training purposes was discussed with the Patient or Authorized Youth Leader. The Patient or Authorized Youth Leader has agreed to proceed with the sensitive examination. (Sensitive examination includes inspection and/or palpation of the breasts, pelvis, prostate and anorectal regions) Assessment Assessment and Plan: Kirt Reyna is a 54 year old female with history of anal cancer status post chemoradiation now about 2.5 years out from diagnosis. She will need inguinal lymph node and anoscopic exams every 6 months for 5 years total. Recent imaging did not show any evidence of residual disease. She will follow-up with Jayda Wang in 6 months for her next exam and to be scheduled for her every 6-month anoscopic exam and inguinal lymph node check with Jayda Medical Decision Making: Data Reviewed: Tests AND Documents Reviewed/ordered: Review of prior notes from myself Review of Pathology Review of Imaging: CT Abdomen, CT Pelvis, MRI Pelvis, CT Chest Review of Labs: CBC, BMP Review of Procedures / Tests: Colonoscopy I have independently interpreted: CT Abdomen, MRI Pelvis, CT Chest Risk of morbidity, mortality and/or complications of treatment plan: high Phil Dougherty MD Colorectal Surgery [facility] 11-02-2024 Note HNO ID: [id number] Author: TORIBIO MICHAUD MD Service: ? Author Type: Physician Type: Progress Notes Filed: 11/17/2024 05:54 Note Text: Radiation Oncology - Follow Up Note PATIENT NAME: Kirt Reyna PATIENT DIAGNOSIS/PATIENT IDENTIFICATION: Ms. 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 She completed a course of definitive concurrent chemoradiation therapy on 07/25/2022 (5600 cGy delivered in 28 fractions with partial course of Xeloda). INTERVAL HISTORY: Ms. Reyna returns to clinic today for routine follow-up approximately two years after the completion of her radiation treatments and one year since her last visit on 10/27/2023. In the interim, she had her surveillance imaging with CT chest abdomen and MRI of the rectum on 10/26/2024 which showed stable posttreatment changes in the pelvis with no evidence of local regional or distant disease. She also had an anoscopy and anorectal exam on 05/28/[address] Dougherty which was without concerns. Today she reports doing well denies any pain or discomfort in the treatment area. She has had occasional bleeding with bowel movements which she notes is usually when she is constipated. She otherwise denies any diarrhea or pain with bowel movements. She reports no urinary issues except for urgency and no vaginal dryness or itching or vaginal bleeding/discharge or nausea. She reports no skin irritation or breakdown of her skin in the treatment area. She does note some fatigue as she is going through menopause with stable appetite and hydration and weight. Recently she has been noting back pain for which she is doing physical therapy. ALLERGIES ALLERGIES Allergen Reactions Penicillin G Unknown Sulfa (Sulfonamide * Unknown MEDICATIONS: Current Outpatient Medications: CALCIUM ORAL cholecalciferol, vitamin D3, (VITAMIN D3 ORAL) multivit-min/ferrous fumarate (MULTI VITAMIN ORAL) ondansetron (ZOFRAN) 8 mg tablet Gcptwmcvh-Oggdjfkeqnvevl-Elfa 2.8-0.55 % gel multivitamin tablet acetaminophen/diphenhydramine (TYLENOL [...] deficit; AANDO X3. RADIOLOGIC DATA: MRI Rectum (10/26/2024) IMPRESSION: Since 09/29/2023, post treatment primary tumor assessment: - Stable appearance of fibrosis/scarring at the site of the previously treated anorectal neoplasm, with no evidence of residual/recurrent disease. CT Chest (10/26/2024) IMPRESSION: No metastatic disease in the chest. CT Abdomen (10/26/2024) IMPRESSION: No metastatic disease in the abdomen. ASSESSMENT AND PLAN: Ms. Reyna is a 54-year-old woman with [id number] squamous cell carcinoma of the anal canal. She completed a course of definitive concurrent chemoradiation therapy on 07/25/2022 (5600 cGy delivered in 28 fractions with partial course of Xeloda). Ms. Reyna is doing well clinically approximately 2 years out from the completion of her chemoradiation treatments to the pelvis both stable residual sequela at this time. We reviewed dietary modifications and the use of stool softeners and laxatives to avoid constipation leading to bleeding and trauma to the anal rectal area. She is without radiographic or clinical concern for disease recurrence based on imaging with CT chest abdomen and MRI of the rectum from 10/26/2024 as well as anoscopy by Dr. Dougherty in May. She is scheduled for repeat anoscopy next month I will plan to see her back in approximately 1 year after repeat imaging. The patient is aware to contact the clinic in the interim should any questions or concerns arise. Thank you for allowing us to participate in the care of this patient. Signed by: Toribio Michaud MD I spent a total of 20 minutes on the date of the service which included preparing to see the patient, [id number] patient care, and counseling and educating the patient/family/caregiver. This document has been created with the use of voice recognition technology. It may contain inaccuracies, misspellings, inaccurate syntax or inappropriate word context that are a result of the inadequacies/shortcomings of said technology/software. [facility] 11-02-2024 History of Present illness Narrative Radiation Oncology - Follow Up Note PATIENT NAME: Kirt Reyna PATIENT DIAGNOSIS/PATIENT IDENTIFICATION: Ms. Reyna is a 54-year-old woman with [id number] squamous cell carcinoma of the anal canal. She completed a course of definitive concurrent chemoradiation therapy on 07/25/2022 (5600 cGy delivered in 28 fractions with partial course of Xeloda). INTERVAL HISTORY: Ms. Reyna returns to clinic today for routine follow-up approximately two years after the completion of her radiation treatments and one year since her last visit on 10/27/2023. In the interim, ALLERGIES ALLERGIES Allergen Reactions Penicillin G Unknown Sulfa (Sulfonamide * Unknown MEDICATIONS: Current Outpatient Medications: CALCIUM ORAL cholecalciferol, vitamin D3, (VITAMIN D3 ORAL) multivit-min/ferrous fumarate (MULTI VITAMIN ORAL) ondansetron (ZOFRAN) 8 mg tablet Hxyadqnxj-Wlcieoxphliamo-Dsfm 2.8-0.55 % gel multivitamin tablet acetaminophen/diphenhydramine (TYLENOL [...] deficit; A&O X3. RADIOLOGIC DATA: MRI Rectum (10/26/2024) IMPRESSION: Since 09/29/2023, post treatment primary tumor assessment: - Stable appearance of fibrosis/scarring at the site of the previously treated anorectal neoplasm, with no evidence of residual/recurrent disease. CT Chest (10/26/2024) IMPRESSION: No metastatic disease in the chest. CT Abdomen (10/26/2024) IMPRESSION: No metastatic disease in the abdomen. ASSESSMENT AND PLAN: Ms. Reyna is a 54-year-old woman with [id number] squamous cell carcinoma of the anal canal. She completed a course of definitive concurrent chemoradiation therapy on 07/25/2022 (5600 cGy delivered in 28 fractions with partial course of Xeloda). Signed by: Toribio Michaud MD I spent a total of 20 minutes on the date of the service which included preparing to see the patient, nkdk-bw-fvob patient care, and counseling and educating the patient/family/caregiver. This document has been created with the use of voice recognition technology. It may contain inaccuracies, misspellings, inaccurate syntax or inappropriate word context that are a result of the inadequacies/shortcomings of said technology/software. documented in this encounter [facility] 11-02-2024 Instructions Adri Ho - 11/02/2024 2:29 PM EDT RTC in 6 months - coordinate same day with Dr. Michaud Labs on return - CBC, CMP Repeat scans per Dr. Michaud Follow up with Dr. Dougherty as scheduled documented in this encounter [facility] 11-02-2024 History of Present illness Narrative Images from the original note were not included. NAME: Kirt Reyna CLINIC NO.: [id number] DATE OF SERVICE: November 02, 2024 (britni) Some elements in this clinic note that are critical to medical decision making have been carefully reviewed and included from a prior clinic note dated: April 26, 2024 (Dean) Referring Provider: Dr. Phil Dougherty Additional [...] Michaud Labs on return - CBC, CMP Repeat scans per Dr. Michaud Follow up with Dr. Dougherty as scheduled HPI: CASE HISTORY: Reverse Chronological Order 10/28/2024 - CT CAP: Chest: No metastatic disease in the chest. A/P: No metastatic disease in the abdomen. 10/26/2024 - MRI Rectum: Since 09/29/2023, post treatment primary tumor assessment: Stable appearance of fibrosis/scarring at the site of the previously treated anorectal neoplasm, with no evidence of residual/recurrent disease. 10/22/2024 - Bilateral Screening Mammogram: RIGHT BREAST: No significant suspicious finding. LEFT BREAST: No significant suspicious finding. DIAGNOSTIC CATEGORY 1--NEGATIVE. 10/22/2023 - US Breast RT: Diagnostic category: [...] otherwise negative for metastatic disease. 04/24/2022 - Sigmoidoscopy: Dr. Vaughn Rectal exam revealed a larger rectal mass in the right posterior lateral area, taking up approximately a third of the circumference, measured approximately 3.5 cm. 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 Oncoprotein p16 diffusely (+) 02/20/2022 - Rectal mass identified Delay in subsequent workup due to patient's concern with debilitating POTS. 2019 - POTS diagnosed just as COVID-19 hit. Updated Visit, November 02, 2024: Cherie returns today for a follow up. Recent MRI Rectum and CT CAP show no evidence of recurrent/metastatic disease. CBC & CMP are normal, glucose is mildly elevated as expected as she was not fasting for her labs. She endorses doing well overall although admits to some fatigue and anxiety related to her health. She does have chronic back pain. She is participating in physical therapy. Her weight is stable despite a lower exercise tolerance with her back pain. She will consider a GLP-1 with her PCP. Annual screening mammogram negative, scheduled for pap smear and DEXA scan as well. Updated Visit, April 26, 2024: Kirt Reyna returns for scheduled follow-up. She [...] US next week - will follow with conventional machinist for exam. Labs stable. Updated Visit, October [...] PERFORMANCE STATUS: 0 PHYSICAL EXAMINATION: Vitals: BP 138/79 Pulse 79 Temp (Src) 98.1 (Temporal) Resp 16 Ht 5' 7.008 (1.70m) Wt 183 lb 13.8 oz (83.4kg) SpO2 99% BMI 28.79 kg/(m^2). Body surface area is 1.99 meters squared. Exam limited to gross visualization [...] FOR NAUSEA AND VOMITING (Patient taking differently: No sig reported) Hjlirmcsw-Gojbrbealaxchv-Hqru 2.8-0.55 % gel Use 1 Applicator by [...] designated per enteric contrast guidelines LABORATORY VALUES: WBC (k/uL) Date Value 10/28/2024 4.90 RBC (m/uL) Date Value 10/28/2024 4.40 Hemoglobin (g/dL) Date Value 10/28/2024 13.3 Hematocrit (%) Date Value 10/28/2024 39.2 MCV (fL) Date Value 10/28/2024 89.1 MCH (pg) Date Value 10/28/2024 30.2 MCHC (g/dL) Date Value 10/28/2024 33.9 RDW-CV (%) Date Value 10/28/2024 13.0 Platelet Count (k/uL) Date Value 10/28/2024 242 MPV (fL) Date Value 10/28/2024 9.9 Glucose (mg/dL) Date Value 10/28/2024 107 (H) BUN (mg/dL) Date Value 10/28/2024 19 Creatinine (mg/dL) Date Value 10/28/2024 0.63 Sodium (mmol/L) Date Value 10/28/2024 139 Potassium (mmol/L) Date Value 10/28/2024 3.8 Chloride (mmol/L) Date Value 10/28/2024 101 CO2 (mmol/L) Date Value 10/28/2024 26 Protein, Total (g/dL) Date Value 10/28/2024 7.6 Albumin (g/dL) Date Value 10/28/2024 4.5 Calcium, Total (mg/dL) Date Value 10/28/2024 9.8 Alkaline Phosphatase (U/L) Date Value 10/28/2024 114 Bilirubin, Total (mg/dL) Date Value 10/28/2024 0.2 AST (U/L) Date Value 10/28/2024 24 ALT (U/L) Date Value 10/28/2024 25 DIAGNOSIS: (C21.0) Anal cancer (HCC) (primary encounter [...] of 30 minutes on the date of service which included preparing to see the patient, bdvn-qy-cybg patient care, completing clinical documentation, performing a medically appropriate examination, counseling and educating the patient/family/caregiver, ordering medications, tests, or procedures, independently interpreting results (not separately reported), communicating results to the patient/family/caregiver, and care coordination (not separately reported). Paco Bonds MD, CPE Hematology and Oncology Services Provided at: [place], [place] Scribe Attestation: This note was scribed by Adri Ho on November 02, 2024 under the direction and supervision of Dr. Paco Bonds. I attest that all of the information documented is correct to the best of my knowledge. Provider Attestation: I, Paco Bonds MD, attest that all information documented by the above scribe is correct, and was supervised by me and under my direction. CC: Dr. Phil Liu documented in this encounter [facility] 11-02-2024 Note HNO ID: [id number] Author: PACO BONDS MD Service: ? Author Type: Physician Type: Progress Notes Filed: 11/02/2024 19:37 Note Text: NAME: Kirt Reyna [facility] NO.: [id number] DATE OF SERVICE: November 02, 2024 (Sangeetha) Some elements in this clinic note that are critical to medical decision making have been carefully reviewed and included from a prior clinic note dated: April 26, 2024 (Dean) Referring Provider: Dr. Phil Dougherty Additional [...] Michaud Labs on return - CBC, CMP Repeat scans per Dr. Michaud Follow up with Dr. Dougherty as scheduled ____ HPI: CASE HISTORY: Reverse Chronological Order 10/28/2024 - CT CAP: Chest: No metastatic disease in the chest. A/P: No metastatic disease in the abdomen. 10/26/2024 - MRI Rectum: Since 09/29/2023, post treatment primary tumor assessment: Stable appearance of fibrosis/scarring at the site of the previously treated anorectal neoplasm, with no evidence of residual/recurrent disease. 10/22/2024 - Bilateral Screening Mammogram: RIGHT BREAST: No significant suspicious finding. LEFT BREAST: No significant suspicious finding. DIAGNOSTIC CATEGORY 1--NEGATIVE. 10/22/2023 - US Breast RT: Diagnostic category: [...] otherwise negative for metastatic disease. 04/24/2022 - Sigmoidoscopy: Dr. Vaughn Rectal exam revealed a larger rectal mass in the right posterior lateral area, taking up approximately a third of the circumference, measured approximately 3.5 cm. 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 Oncoprotein p16 diffusely (+) 02/20/2022 - (more content not included)... [facility] 10-28-2024 History of Present illness Narrative Radiology Service Progress Note DATE OF SERVICE: October 28, 2024 TIME: 10:33 AM PATIENT WEIGHT: 189LBS PATIENT IDENTITY VERIFICATION COMPLETED USING TWO (2) STANDARD IDENTIFIERS: Name and Date of confirmed by patient verbally. FALL SCREENING: Has the patient had 2 falls in the last year or 1 fall with injury or currently using an Ambulatory Assistive Device (Walker, Cane, Wheelchair, Crutches, etc.)? No PATIENT GENDER DATA: Assigned female at . status: : No status: NO. ALLERGIES: Reviewed and unchanged CONTRAST ALLERGY: No EXAM: CT -CONTRAST INDUCED NEPHROPATHY RISK FACTORS: Not applicable CREATININE: Creatinine Date Value Ref Range Status 04/26/2024 0.69 0.58 - 0.96 mg/dL Final 10/27/2023 0.68 0.58 - 0.96 mg/dL Final 04/28/2023 0.71 0.58 - 0.96 mg/dL Final Estimated Glomerular Filtration Rate Date Value Ref Range Status 04/26/2024 103 >=60 mL/min/1.73m Final Comment: Estimated Glomerular Filtration [...] not accurately reflect actual GFR. P.O.C.T. RESULTS: POC done: Yes, See Lab Tab October 28, 2024 TREATMENT: N/A IV SITE: Ambulatory: A peripheral IV was started in the Right antecubital site with a Angio cath: 20 gauge. IV SITE APPEARANCE: Clean,Dry and Intact SIGNATURE: Giovanni Vaughn RN PATIENT NAME: Kirt Reyna DATE: October 28, 2024 TIME: 10:33 AM Radiology Service Progress Note PATIENT NAME: Kirt Reyna DATE OF SERVICE: October 28, 2024 TIME: 11:39 AM PATIENT IDENTITY VERIFICATION COMPLETED USING TWO (2) IDENTIFIERS: Name and Date of confirmed by patient verbally. FALL SCREENING: Has the patient had 2 falls in the last year or 1 fall with injury or currently using an Ambulatory Assistive Device (Walker, Cane, Wheelchair, Crutches, etc.)? No PATIENT GENDER DATA: Assigned female at . status: : No status: NO. PATIENT RELEVANT IMPLANT DATA REVIEWED: Not Applicable PATIENT PRESENTS WITH AN IMPLANTABLE OR ATTACHED FLOORING MACHINE OPERATOR: No RADIOLOGY DEPARTMENT: CT; Exam(s) Completed: Abdomen and Chest PERIPHERAL IV DATA: Site assessment: Clean,Dry and Intact, Site disposition Discontinued SIGNED BY: RT Lily(R) October 28, 2024 11:39 AM documented in this encounter [facility] 10-28-2024 Note HNO ID: [id number] Author: JAH COLBERT RT(R) Service: ? Author Type: Technologist Type: Progress Notes Filed: 10/28/2024 11:40 Note Text: Radiology Service Progress Note PATIENT NAME: Kirt Reyna DATE OF SERVICE: October 28, 2024 TIME: 11:39 AM PATIENT IDENTITY VERIFICATION COMPLETED USING TWO (2) IDENTIFIERS: Name and Date of confirmed by patient verbally. FALL SCREENING: Has the patient had 2 falls in the last year or 1 fall with injury or currently using an Ambulatory Assistive Device (Walker, Cane, Wheelchair, Crutches, etc.)? No PATIENT GENDER DATA: Assigned female at . status: : No status: NO. PATIENT RELEVANT IMPLANT DATA REVIEWED: Not Applicable PATIENT PRESENTS WITH AN IMPLANTABLE OR ATTACHED FLOORING MACHINE OPERATOR: No RADIOLOGY DEPARTMENT: CT; Exam(s) Completed: Abdomen and Chest PERIPHERAL IV DATA: Site assessment: Clean,Dry and Intact, Site disposition Discontinued SIGNED BY: RT Lily(Ange) October 28, 2024 11:39 AM [facility] 10-28-2024 Note HNO ID: [id number] Author: GIOVANNI VAUGHN RN Service: ? Author Type: Registered Nurse Type: Progress Notes Filed: 10/28/2024 10:34 Note Text: Radiology Service Progress Note DATE OF SERVICE: October 28, 2024 TIME: 10:33 AM PATIENT WEIGHT: 189LBS PATIENT IDENTITY VERIFICATION COMPLETED USING TWO (2) STANDARD IDENTIFIERS: Name and Date of confirmed by patient verbally. FALL SCREENING: Has the patient had 2 falls in the last year or 1 fall with injury or currently using an Ambulatory Assistive Device (Walker, Cane, Wheelchair, Crutches, etc.)? No PATIENT GENDER DATA: Assigned female at . status: : No status: NO. ALLERGIES: Reviewed and unchanged CONTRAST ALLERGY: No EXAM: CT -CONTRAST INDUCED NEPHROPATHY RISK FACTORS: Not applicable CREATININE: Creatinine Date Value Ref Range Status 04/26/2024 0.69 0.58 - 0.96 mg/dL Final 10/27/2023 0.68 0.58 - 0.96 mg/dL Final 04/28/2023 0.71 0.58 - 0.96 mg/dL Final Estimated Glomerular Filtration Rate Date Value Ref Range Status 04/26/2024 103 >=60 mL/min/1.73m? Final Comment: Estimated Glomerular Filtration Rate (eGFR) [...] not accurately reflect actual GFR. P.O.C.T. RESULTS: POC done: Yes, See Lab Tab October 28, 2024 TREATMENT: N/A IV SITE: Ambulatory: A peripheral IV was started in the Right antecubital site with a Angio cath: 20 gauge. IV SITE APPEARANCE: Clean,Dry and Intact SIGNATURE: Giovanni Vaughn RN PATIENT NAME: Kirt Reyna DATE: October 28, 2024 TIME: 10:33 AM [facility] 10-26-2024 History of Present illness Narrative Radiology Service Progress Note DATE OF SERVICE: October 26, 2024 TIME: 11:28 AM PATIENT IDENTITY VERIFICATION COMPLETED USING TWO (2) STANDARD IDENTIFIERS: Name and Date of confirmed by patient verbally. FALL SCREENING: Has the patient had 2 falls in the last year or 1 fall with injury or currently using an Ambulatory Assistive Device (Walker, Cane, Wheelchair, Crutches, etc.)? No PATIENT GENDER DATA: Assigned female at . status: : No status: NO. PATIENT RELEVANT IMPLANT DATA REVIEWED: Yes PATIENT PRESENTS WITH AN IMPLANTABLE OR ATTACHED FLOORING MACHINE OPERATOR: No ALLERGIES: Reviewed and unchanged CONTRAST ALLERGY: NO. EXAM: MRI - CONTRAST TYPE: GROUP II PERIPHERAL IV DATA: Ambulatory: A peripheral IV was started in the Right antecubital site with a Angio cath: 24 gauge. RADIOLOGY DEPARTMENT: MR; Exam(s) Completed: Body: Rectal SIGNATURE: Jose R Bernard RRT PATIENT NAME: Kirt Reyna DATE: October 26, 2024 TIME: 11:28 AM documented in this encounter [facility] 10-26-2024 Note HNO ID: [id number] Author: JOSE R BERNARD RRT Service: Radiology Author Type: Supervisor Plate Pasting Type: Progress Notes Filed: 10/26/2024 11:30 Note Text: Radiology Service Progress Note DATE OF SERVICE: October 26, 2024 TIME: 11:28 AM PATIENT IDENTITY VERIFICATION COMPLETED USING TWO (2) STANDARD IDENTIFIERS: Name and Date of confirmed by patient verbally. FALL SCREENING: Has the patient had 2 falls in the last year or 1 fall with injury or currently using an Ambulatory Assistive Device (Walker, Cane, Wheelchair, Crutches, etc.)? No PATIENT GENDER DATA: Assigned female at . status: : No status: NO. PATIENT RELEVANT IMPLANT DATA REVIEWED: Yes PATIENT PRESENTS WITH AN IMPLANTABLE OR ATTACHED FLOORING MACHINE OPERATOR: No ALLERGIES: Reviewed and unchanged CONTRAST ALLERGY: NO. EXAM: MRI - CONTRAST TYPE: GROUP II PERIPHERAL IV DATA: Ambulatory: A peripheral IV was started in the Right antecubital site with a Angio cath: 24 gauge. RADIOLOGY DEPARTMENT: MR; Exam(s) Completed: Body: Rectal SIGNATURE: Jose R Bernard RRT PATIENT NAME: Kirt Reyna DATE: October 26, 2024 TIME: 11:28 AM [facility] 05-28-2024 History of Present illness Narrative COLORECTAL [...] taking differently: As needed) 90 tablet 1 Xedwmfimy-Mujvycpgjlmyir-Iacl 2.8-0.55 % gel Use 1 Applicator by [...] exam reveals no gross blood or masses School Counsellor present: Yes, Padmini Garcia Anoscopy: The patient was placed in chest-knee position. After digital exam with a lubricated finger, the scope was easily inserted. Posterior scar noted. Otherwise normal mucosa was noted. Anoscopy completed. The sensitive examination was discussed with the Patient or Patient's Authorized Youth Leader. As applicable, any other physician, advance practice provider, medical student, or other health professional student that will be observing or involved in the sensitive examination for educational or training purposes was discussed with the Patient or Authorized Youth Leader. The Patient or Authorized Youth Leader has agreed to proceed with the sensitive [...] MD Colorectal Surgery documented in this encounter [facility] 05-28-2024 Note HNO ID: [id number] Author: PHIL DOUGHERTY MD Service: ? Author [...] taking differently: As needed) 90 tablet 1 Ghyqniojn-Ndvwqgeffpysui-Qnjk 2.8-0.55 % gel Use 1 Applicator by [...] exam reveals no gross blood or masses School Counsellor present: Yes, Padmini Garcia Anoscopy: The patient was placed in chest-knee position. After digital exam with a lubricated finger, the scope was easily inserted. Posterior scar noted. Otherwise normal mucosa was noted. Anoscopy completed. The sensitive examination was discussed with the Patient or Patient's Authorized Youth Leader. As applicable, any other physician, advance practice provider, medical student, or other health professional student that will be observing or involved in the sensitive examination for educational or training purposes was discussed with the Patient or Authorized Youth Leader. The Patient or Authorized Youth Leader has agreed to proceed with the sensitive [...] plan: high Phil Dougherty MD Colorectal Surgery [facility] 04-26-2024 Note HNO ID: [id number] Author: GERARDO MCKINNON APRN.COMMUNITY RESOURCE OFFICER Service: ? Author Type: Nurse Practitioner Type: Progress Notes Filed: 04/26/2024 21:05 Note Text: NAME: Kirt Reyna CLINIC NO.: [id number] DATE OF SERVICE: APRIL 26, 2024 (Dean) Some elements in this clinic note that are critical to medical decision making have been carefully reviewed and included from a prior clinic note dated: October 27, 2023 (Sangeetha) Referring Provider: Dr. Phil Dougherty Additional Clinicians [...] constipation with fibe (more content not included)... [facility] 04-26-2024 History of Present illness Narrative Images from the original note were not included. NAME: Kirt Reyna [facility] NO.: [id number] DATE OF SERVICE: APRIL 26, 2024 (Dean) Some elements in this clinic note that are critical to medical decision making have been carefully reviewed and included from a prior clinic note dated: October 27, 2023 (Sangeetha) Referring Provider: Dr. Phil Dougherty Additional Clinicians [...] US next week - will follow with conventional machinist for exam. Labs stable. Updated Visit, October [...] AND VOMITING (Patient taking differently: As needed) Dwzievsdr-Oelbrypdxcvgpb-Gycx 2.8-0.55 % gel Use 1 Applicator by [...] which included preparing to see the patient, ruyy-sh-nafx patient care, completing clinical documentation, obtaining and/or reviewing separately obtained history, performing a medically appropriate examination, counseling and educating the patient/family/caregiver, ordering medications, tests, or procedures, independently interpreting results (not separately reported), and communicating results to the patient/family/caregiver. Gerardo Mckinnon APRN.[facility] Hematology and Oncology Services Provided at: [place], [place] Scribe Attestation: This note was scribed [...] Dr. Phil Liu documented in this encounter [facility] 12-12-2023 History of Present illness Narrative [...] taking differently: As needed) 90 tablet 1 Liyynggtz-Lehxcqbxletjnr-Zxhe 2.8-0.55 % gel Use 1 Applicator by [...] exam reveals no gross blood or masses School Counsellor present: Yes, Padmini Garcia Anoscopy: The patient [...] MD Colorectal Surgery documented in this encounter [facility] 12-12-2023 Note HNO ID: [id number] Author: PHIL DOUGHERTY MD Service: ? Author [...] taking differently: As needed) 90 tablet 1 Swqtdggwi-Ammawnstvtimwv-Lfiu 2.8-0.55 % gel Use 1 Applicator by [...] exam reveals no gross blood or masses School Counsellor present: Yes, Padmini Garcia Anoscopy: The patient [...] plan: high Phil Dougherty MD Colorectal Surgery [facility] 10-31-2023 Nurse Note What is the reason for your visit today? F/u, anal cancer surveillance Who is your referring physician? Are you having poor oral intake? NO Have you had unintentional weight loss of 15 lbs/7 Kg in the last 3-6 months? NO Bowels: regular Wound: Temperature: No Drains: No documented in this encounter [facility] 10-31-2023 History of Present illness Narrative [...] FOR NAUSEA AND VOMITING 90 tablet 1 Nxqoxaasi-Molkmrdegwoyfd-Glxn 2.8-0.55 % gel Use 1 Applicator by [...] exam reveals no gross blood or masses School Counsellor present: Yes, Padmini Garcia Anoscopy: The patient [...] MD Colorectal Surgery documented in this encounter [facility] 10-27-2023 History of Present illness Narrative Radiation Oncology - Follow Up Note PATIENT NAME: Kirt Reyna PATIENT DIAGNOSIS/PATIENT IDENTIFICATION: Ms. 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 [...] VITAMIN ORAL) ondansetron (ZOFRAN) 8 mg tablet Bdmytjjpf-Lpwavzixclyybo-Bzsb 2.8-0.55 % gel multivitamin tablet acetaminophen/diphenhydramine (TYLENOL [...] Ms. Reyna is a 53-year-old woman with [id number] squamous cell carcinoma of the anal canal. She completed a course of definitive concurrent chemoradiation therapy on 07/25/2022 (5600 cGy delivered in 28 fractions with partial course of Xeloda) Signed by: Toribio Michaud MD I spent a total of 20 minutes on the date of the service which included preparing to see the patient, wfvv-bu-gdgl patient care, and counseling and educating the patient/family/caregiver. This document has been created with the use of voice recognition technology. It may contain inaccuracies, misspellings, inaccurate syntax or inappropriate word context that are a result of the inadequacies/shortcomings of said technology/software. documented in this encounter [facility] 10-27-2023 Instructions Adri Gilbert - 10/27/2023 2:40 PM EDT RTC in 6 months - coordinate same day with Dr. Jaswant Link on return - CBC, CMP documented in this encounter [facility] 10-27-2023 Nurse Note Patient does have chronic back pain, she is starting physical therapy. Radha Lunsford MA documented in this encounter [facility] 10-27-2023 History of Present illness Narrative Images from the original note were not included. NAME: Kirt Reyna [facility] NO.: [id number] DATE OF SERVICE: October 27, 2023 ([facility]) Some elements in this clinic note that are critical to medical decision making have been carefully reviewed and included from a prior clinic [facility]: [facility] Referring Provider: Dr. Phil Dougherty Additional Clinicians [...] Jaswant Link on return - CBC, CMP HPI: CASE [...] US next week - will follow with conventional machinist for exam. Labs stable. Updated Visit, October [...] daily. (Patient not taking: Reported on 10/27/2023) Uhiyavihv-Pebashpdualrbm-Jumh 2.8-0.55 % gel Use 1 Applicator by [...] which included preparing to see the patient, nhex-oo-iraq patient care, completing clinical documentation, obtaining and/or reviewing separately obtained history, performing a medically appropriate examination, counseling and educating the patient/family/caregiver, ordering medications, tests, or procedures, independently interpreting results (not separately reported), communicating results to the patient/family/caregiver, and care coordination (not separately reported). Paco Bonds MD, CPE Hematology and Oncology Services Provided at: [place], [place] Scribe Attestation: This note was scribed [...] Dr. Phil Liu documented in this encounter [facility] 10-01-2023 History of Present illness Narrative [...] PATIENT PRESENTS WITH AN IMPLANTABLE OR ATTACHED FLOORING MACHINE OPERATOR: No RADIOLOGY DEPARTMENT: CT; Exam(s) Completed: Chest PERIPHERAL IV DATA: Not applicable SIGNED BY: RT Kimberly(R) October 01, 2023 10:42 AM documented in this encounter [facility] 09-29-2023 History of Present illness Narrative [...] PATIENT PRESENTS WITH AN IMPLANTABLE OR ATTACHED FLOORING MACHINE OPERATOR: No ALLERGIES: Reviewed and unchanged CONTRAST ALLERGY: [...] TIME: 1:33 PM documented in this encounter [facility] 09-18-2023 Miscellaneous Notes Discussed with patient and she is in agreement with plan. Eliza Ramires, RN NCCN guidelines recommend either 1. CT [...] to explain to patient. Thank you! Eliza Ramires, RN Called patient to schedule her scans, [...] you so much. documented in this encounter [facility] 05-27-2023 Miscellaneous Notes LVM for patient regarding the need to reschedule Colorectal appt with Dr. Dougherty on 05/29/2023. Provider not longer comes to [facility]. Stere[employer]ot message sent. documented in this encounter [facility] 04-28-2023 Instructions Paco Bonds MD - 04/28/2023 2:22 PM EDT RTC in 6 months MRI Pelvis / Rectum and CT chest scans due in July per Dr. Michaud. Labs on return - cbc, cmp documented in this encounter [facility] 04-28-2023 History of Present illness Narrative Images from the original note were not included. NAME: Kirt Reyna [facility] NO.: [id number] DATE OF SERVICE: April 28, 2023 ([facility]) Some elements in this clinic note that are critical to medical decision making have been carefully reviewed and included from a prior clinic note dated: October 28, 2022 ([facility]) Referring Provider: Dr. Phil Dougherty Additional Clinicians involved in Kirt Ryena's care: Dr. Sondra Liu, Dr. Vitaly Vaughn, [...] US next week - will follow with conventional machinist for exam. Labs stable. Updated Visit, October [...] 8 HOURS NEEDED FOR NAUSEA AND VOMITING Wfemxgckb-Tvbhtvohhqwqym-Whfc 2.8-0.55 % gel Use 1 Applicator by [...] which included preparing to see the patient, xnrs-xb-xpnd patient care, completing clinical documentation, performing a medically appropriate examination, counseling and educating the patient/family/caregiver, ordering medications, tests, or procedures, and independently interpreting results (not separately reported). Paco Bonds MD, CPE Hematology and Oncology Services Provided at: [place], [place] CC: Dr. Phil Liu documented in this encounter [facility] 04-28-2023 Nurse Note Patient had a Mammogram but do to dense tissue she has to have an US and more in depth mammogram done. Radha Lunsford MA documented in this encounter [facility] 02-27-[address] Michaud request, pt was notified of report showing osteopenia in L Hip. Report faxed to PCP, DR Liu. Pt will follow up with him for any reccomendations. Eliza Ramires RN Pt called in requesting results of dexa scan. Dr Michaud- please advise. Results scanned in under xray. Unsure how to interpret for patient. Eliza Ramires RN documented in this encounter [facility] 02-12-2023 Miscellaneous Notes Patient is scheduled at [place] Fridayfeb 17 she is aware of appts Called [facility] to schedule appt left message Pt was notified. PSS- please contact pt and arrange Dexa at [facility] per pt request. Eliza Ramires RN Will go ahead and order the [...] Dr Bonds to evaluate these questions? Eliza Ramires RN documented in this encounter [facility] 02-10-2023 Instructions Eliza Ramires RN - 02/10/2023 1:32 PM EDT BONE [...] usual activities immediately. documented in this encounter [facility] 01-16-2023 History of Present illness Narrative COLORECTAL SURGERY January 16, 2023 Kirt Reyna 52 year old Chief Complaint: anal cancer surveillance History of Present Illness: Kirt Reyna is a 52 year old female presents today for anal cancer surveillance. Last seen 10/17/22 Radiation oncology - Dr. Michaud Medical oncology - Dr. Bonsd She reports she is doing well. She [...] taking: Reported on 10/28/2022) 90 tablet 1 Ssoavyqmm-Rctdimyuzvdsvy-Kjuw 2.8-0.55 % gel Use 1 Applicator by [...] exam reveals no gross blood or masses School Counsellor present: Yes, Jenn Anoscopy: The patient was [...] MD Colorectal Surgery documented in this encounter [facility] 10-28-2022 History of Present illness Narrative Radiation Oncology - Follow Up Note PATIENT NAME: Kirt Reyna PATIENT DIAGNOSIS/PATIENT IDENTIFICATION: Ms. Reyna is a 52-year-old woman with [id number] squamous cell carcinoma of the anal canal. [...] now recovered. She is planning for a MANAGER INTENSIVE CARE exam in the next few weeks. She [...] mg tablet ondansetron (ZOFRAN) 8 mg tablet Uaprdvsnv-Ztobuxeydcgvaj-Abtj 2.8-0.55 % gel acetaminophen/diphenhydramine (TYLENOL PM EXTRA [...] Ms. Reyna is a 52-year-old woman with [id number] squamous cell carcinoma of the anal canal. [...] which included preparing to see the patient, qhci-le-btly patient care, and counseling and educating the patient/family/caregiver. This document has been created with the use of voice recognition technology. It may contain inaccuracies, misspellings, inaccurate syntax or inappropriate word context that are a result of the inadequacies/shortcomings of said technology/software. documented in this encounter [facility] 10-28-2022 Nurse Note Clinical questionnaires incomplete due to QNR intake not loading. Radha Lunsford MA documented in this encounter [facility] 10-28-2022 Instructions Paco Bonds MD - 10/28/2022 2:08 PM EDT RTC in 6 months Defer scans (MRI) to Dr. Michaud / Dennis. Labs on return - cbc, cmp documented in this encounter [facility] 10-28-2022 History of Present illness Narrative Images from the original note were not included. NAME: Michelle Kirt [facility] NO.: [id number] DATE OF SERVICE: [facility] Some elements in this clinic note that are critical to medical decision making have been carefully reviewed and included from a prior clinic note dated: September 04, 2022 ([facility]) Referring Provider: Dr. Phil Dougherty Additional Clinicians [...] VOMITING (Patient not taking: Reported on 10/28/2022) Jhvvwawxp-Tijrgerawaupce-Pzxo 2.8-0.55 % gel Use 1 Applicator by [...] which included preparing to see the patient, stsu-rw-exuo patient care, completing clinical documentation, performing a medically appropriate examination, counseling and educating the patient/family/caregiver, ordering medications, tests, or procedures, and independently interpreting results (not separately reported). Paco Bonds MD, CPE Hematology and Oncology Services Provided at: [place], [place] CC: Dr. Phil Liu documented in this encounter [facility] 10-11-2022 Note HNO ID: [id number] Author: Eleonora Puri Service: Radiology Author Type: [...] Eleonora Puri October 11, 2022 4:15 PM [facility] 10-11-2022 History of Present illness [...] 2022 4:15 PM documented in this encounter [facility] 10-11-2022 Nurse Note Radiology Service Progress [...] TIME: 2:45 PM documented in this encounter [facility] 09-04-2022 History of Present illness Narrative Radiation Oncology - Follow Up Note PATIENT NAME: Kirt Reyna PATIENT Signed by: Toribio Michaud MD This document has been created with the use of voice recognition technology. It may contain inaccuracies, misspellings, inaccurate syntax or inappropriate word context that are a result of the inadequacies/shortcomings of said technology/software. documented in this encounter [facility] 09-04-2022 Instructions Paco Bonds MD - 09/04/2022 10:52 AM EST RTC in 3 months Defer scans (MRI) to Dr. Michaud. Labs on return - cbc, cmp documented in this encounter [facility] 09-04-2022 History of Present illness Narrative Images from the original note were not included. NAME: Kirt Reyna CLINIC NO.: [id number] DATE OF SERVICE: September 04, 2022 ([facility]) Some elements in this clinic note that are critical to medical decision making have been carefully reviewed and included from a prior clinic note dated: July 17, 2022 ([facility]) Referring Provider: Dr. Phil Dougherty Additional Clinicians [...] DAY diphenhydrAMINE (BENADRYL) 12.5 mg/5 mL liquid Dsuhajszf-Iutvzkumndeihl-Gxyt 2.8-0.55 % gel Use 1 Applicator by [...] which included preparing to see the patient, qvah-pt-proi patient care, completing clinical documentation, performing a medically appropriate examination, counseling and educating the patient/family/caregiver, ordering medications, tests, or procedures, and independently interpreting results (not separately reported). Paco Bonds MD, CPE Hematology and Oncology Services Provided at: [place], [place] CC: Dr. Phil Liu documented in this encounter [facility] 08-28-2022 History of Present illness Narrative [...] 2022 10:06 AM documented in this encounter [facility] 08-16-2022 Miscellaneous Notes Voicemail message received from pt requesting a letter clearing her to return to work. Pt's chart reviewed. It appears a letter was written per Dr Michaud on 07/24/22. Call placed to pt. Pt states that her employer found the letter since her original message. No additional letter needed at this time. Jah Whitehead RN documented in this encounter [facility] 08-01-2022 History of Present illness Narrative Radiation Oncology - Follow Up Note PATIENT NAME: Kirt Reyna PATIENT Signed by: Toribio Michaud MD This document has been created with the use of voice recognition technology. It may contain inaccuracies, misspellings, inaccurate syntax or inappropriate word context that are a result of the inadequacies/shortcomings of said technology/software. documented in this encounter [facility] 08-01-2022 Nurse Note Kirt Reyna presents in office today for: Lab Draw during Office Visit . Ordering Provider: Toribio Michaud M.D. Test (s) ordered: CBC CMP Method for obtaining blood: Phlebotomy was performed, accessing right antecubital vein. Needle removed intact. Dressing secured. Patient denies discomfort, dizziness, light-headedness or weakness and left the department without assist. Eliza Ramires RN documented in this encounter [facility] 07-26-2022 Miscellaneous Notes ART THERAPY NOTE [...] PM PAGER/CONTACT #: documented in this encounter [facility] 07-25-2022 History of Present illness Narrative [facility] Radiation Oncology Department RADIATION ONCOLOGY - COMPLETION NOTE PATIENT: KIRT REYNA: 1970 DATES OF TREATMENT: 06-13-2022 to 07-25-2022 DIAGNOSIS: Ms. 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 [...] Phil Dougherty MD ([facility]) Sondra Liu MD [address] [place] [address] Via documented in this encounter [facility] 07-23-2022 History of Present illness Narrative Radiation Oncology - On Treatment Review (OTR) Note PATIENT NAME: Kirt Reyna PATIENT Toribio Michaud MD documented in this encounter [facility] 07-23-2022 Nurse Note Status: Patient states there is no possibility she is at this time. documented in this encounter [facility] 07-22-[address] Arellano [...] Thanks! Jenna Solorio documented in this encounter [facility] 07-18-2022 History of Present illness Narrative Radiation Oncology - On Treatment Review (OTR) Note PATIENT NAME: Kirt Reyna PATIENT DIAGNOSIS: Ms. Reyna this 52-year-old woman with [id number] squamous cell carcinoma of the anal canal. [...] Toribio Michaud MD documented in this encounter [facility] 07-18-2022 Nurse Note Status: Patient states there is no possibility she is at this time. documented in this encounter [facility] 07-17-2022 Instructions Paco Bonds MD - 07/17/2022 10:57 AM EST Restaging CT's in 6 weeks Labs same day. RTC after scans to review. documented in this encounter [facility] 07-17-2022 History of Present illness Narrative Images from the original note were not included. NAME: Kirt Reyna [facility] NO.: [id number] DATE OF SERVICE: July 17, 2022 ([facility]) Some elements in this clinic note that [...] MEDICATIONS: diphenhydrAMINE (BENADRYL) 12.5 mg/5 mL liquid Unbnzpxee-Hyljtlrxxbetmp-Brkx 2.8-0.55 % gel Use 1 Applicator by [...] which included preparing to see the patient, rqzc-vb-uykw patient care, completing clinical documentation, performing a medically appropriate examination, counseling and educating the patient/family/caregiver, ordering medications, tests, or procedures, and independently interpreting results (not separately reported). Paco Bonds MD, CPE Hematology and Oncology Services Provided at: [place], [place] CC: Dr. Phil Liu documented in this encounter [facility] 07-12-2022 Miscellaneous Notes ART THERAPY NOTE [...] up with patient at her request. SIGNATURE: Rossi Bradley, Art Therapist PATIENT NAME: Kirt Reyna DATE: July 12, 2022 TIME: 11:59 AM PAGER/CONTACT #: documented in this encounter [facility] 07-11-2022 History of Present illness Narrative Radiation Oncology - On Treatment Review (OTR) Note PATIENT NAME: Kirt Reyna PATIENT DIAGNOSIS: Ms. Reyna this 52-year-old woman with [id number] squamous cell carcinoma of the anal canal. [...] Toribio Michaud MD documented in this encounter [facility] 07-10-2022 History of Present illness Narrative [...] 1.0-1.3 g/kg Dosing weight Estimated fluid needs: ~2729-9481 milliliters based on 1 mL per kcal (unless otherwise noted) Nutrition Focused Physical Exam: Unable to perform exam due to potential for patient discomfort (physical/emotional), will re-attempt during reassessment. Potential Signs of Inflammation: chronic condition Allergies: Penicillin G and Sulfa (Sulfonamide Antibiotics) Medications: Current Outpatient Medications Medication Sig Dispense Refill diphenhydrAMINE (BENADRYL) 12.5 mg/5 mL liquid Cbnysavln-Vjwnzyplkdwxye-Btgo 2.8-0.55 % gel Use 1 Applicator by [...] MS, RDN, LD documented in this encounter [facility] 07-10-2022 History of Present illness Narrative Images from the original note were not included. NAME: Kirt Reyna [facility] NO.: [id number] DATE OF SERVICE: July 10, 2022 ([facility]) [...] MEDICATIONS: diphenhydrAMINE (BENADRYL) 12.5 mg/5 mL liquid Bmenglpzx-Jodwgxqptnnipx-Ijpu 2.8-0.55 % gel Use 1 Applicator by [...] APRN.CNP Hematology and Oncology Services Provided at: [place], [place] CC: Dr. Phil Liu I spent a total of 30 minutes on the date of the service which included preparing to see the patient, erpv-gq-wqod patient care, completing clinical documentation, obtaining and/or reviewing separately obtained history, performing a medically appropriate examination, counseling and educating the patient/family/caregiver, ordering medications, tests, or procedures, independently interpreting results (not separately reported), and communicating results to the patient/family/caregiver. documented in this encounter [facility] 07-03-2022 History of Present illness Narrative Radiation Oncology - On Treatment Review (OTR) Note PATIENT NAME: Kirt Reyna PATIENT DIAGNOSIS: Ms. Reyna this 52-year-old woman with [id number] squamous cell carcinoma of the anal canal. [...] Toribio Quintana MD documented in this encounter [facility] 07-02-2022 Miscellaneous Notes Pt was notified and would also like to know what out of pocket cost would be for what he recommended. Pharmacy was contacted via teams to ask. Eliza Ramires RN Heidi/Jose R can you inform Kirt [...] No- Pharmacy completed on your behalf. Drug: Dljnwncpb-Xyehzahjetijlg-Qpis Gel Cover My Meds Humphrey: [id number] Determination: Denied PA Denied because: not covered at all Prior Authorization/Case #: [id number] Prior Authorization Expiration: Time to PA Submission in CMM: 15 min Time to PA Determination in CMM: 2 days Additional Information: phone fax For questions relating to this submission, please contact [facility] at [phone] documented in this encounter [facility] 06-28-2022 Miscellaneous Notes Lidocaine is on a manufacture backorder nationwide. This pended script's product is available if you are agreeable to it. documented in this encounter [facility] 06-26-2022 History of Present illness Narrative Radiation Oncology - On Treatment Review (OTR) Note PATIENT NAME: Kirt Reyna PATIENT DIAGNOSIS: Ms. Reyna this 52-year-old woman with [id number] squamous cell carcinoma of the anal canal. [...] Toribio Michaud MD documented in this encounter [facility] 06-26-2022 Nurse Note Status: No possibility of . Eliza Ramires RN documented in this encounter [facility] 06-24-2022 History of Present illness Narrative Images from the original note were not included. NAME: Kirt Reyna [facility] NO.: [id number] DATE OF SERVICE: June 24, 2022 ([facility]) [...] (parkinson [Other]) Father Diabetes Father Gerardo Mckinnon APRN.FLORINA Hematology and Oncology Services Provided at: [place], [place] CC: Dr. Phil Liu I spent a total of 30 minutes on the date of the service which included preparing to see the patient, ihdu-ji-agwj patient care, completing clinical documentation, obtaining and/or reviewing separately obtained history, performing a medically appropriate examination, counseling and educating the patient/family/caregiver, ordering medications, tests, or procedures, independently interpreting results (not separately reported), and communicating results to the patient/family/caregiver. documented in this encounter [facility] 06-19-2022 History of Present illness Narrative Radiation Oncology - On Treatment Review (OTR) Note PATIENT NAME: Kirt Reyna PATIENT Toribio Michaud MD documented in this encounter [facility] 06-19-2022 Nurse Note Status: Patient states there is no possibility she is at this time. documented in this encounter [facility] 06-19-2022 Miscellaneous Notes ORAL ANTI-CANCER AGENTS [...] instructed to call if unable to comply. Jah Whitehead RN documented in this encounter [facility] 06-18-2022 Miscellaneous Notes Updated order base don new directions documented in this encounter [facility] 06-17-2022 Miscellaneous Notes Discussed this with Dr Calles on Friday. Pt stated on the phone that she didn't feel that she'd be able to keep down or tolerate 3 pills as that seemed like too high of a dose, so she's going to take the 2 pills BID instead. Shital Amaya RN Ok thank for letting me know - any specific issue she couldn't tolerate? Pt calls stating she's only taking two Xeloda pills BID instead of the three that were ordered. Pt states she wasn't able to tolerate 3, so she doing [address] Calles to be aware. Shital Amaya RN documented in this encounter [facility] 06-17-2022 Instructions Paco Bonds MD - [...] for each week. documented in this encounter [facility] 06-17-2022 Nurse Note Patient is taking Xeloda 4 pills daily, she was taking 6 but that was not working for her so she changed it. Radha Lunsford MA documented in this encounter [facility] 06-17-2022 History of Present illness Narrative Images from the original note were not included. NAME: Michelle Kirt CLINIC NO.: [id number] DATE OF SERVICE: June 17, 2022 [facility] Some elements in this clinic note that are critical to medical decision making have been carefully reviewed and included from a prior clinic note dated: May 27, 2022 ([facility]) Referring Provider: Phil Dougherty Additional Clinicians involved [...] future. Initial Visit, May 06, 2022: Kirt Felipe Reyna presents today Hematology and Oncology evaluation. [...] which included preparing to see the patient, jzuq-kj-jcde patient care, completing clinical documentation, performing a medically appropriate examination, counseling and educating the patient/family/caregiver, ordering medications, tests, or procedures, and independently interpreting results (not separately reported). Paco Bonds MD, CPE Hematology and Oncology Services Provided at: [place], [place] CC: Phil Michaud Sondra Liu documented in this encounter [facility] 06-13-2022 Miscellaneous Notes Call placed to [...] no possibility of at this time. Eliza Ramires RN Spoke to pt and she will go to [facility] for urine test. Order was faxed. She was also notified she is ok to start her chemo tomorrow and does not need additional labs. I also made her aware that we are not planning to do DPD enzyme testing at this time. She is aware of new start time and will be here tomorrow at 10:15. Eliza Ramires RN Signed - results should be available/negative prior to starting XRT. Thanks! NESHA Please sign pended order for Urine Test. Eliza Weyer, RN documented in this encounter [facility] 06-03-2022 History of Present illness Narrative [...] Total time spent on encounter: 5 minutes Jah Whitehead RN documented in this encounter [facility] 06-03-2022 History of Present illness Narrative [...] 1.0-1.3 g/kg Dosing weight Estimated fluid needs: ~1803-5154 milliliters based on 1 mL per kcal [...] minutes Signed by: Carmina Forbes MS, RDN, SANJANA documented in this encounter [facility] 05-30-2022 History of Present illness Narrative [...] MS, RDN, LD documented in this encounter [facility] 05-27-2022 Nurse Note Status: Patient states there is no possibility she is at this time. documented in this encounter [facility] 05-27-2022 Instructions Paco Bonds MD - 05/27/2022 11:51 AM EST Start Xeloda on June 13, 2022 with start of radiation Will be taking Xeloda daily on days of radiation only. Plan hydration on M,T,F of each week (start Jun 14) RTC with me on Friday06/17/2022 Labs every Friday Needs educations Labs today please - for baseline documented in this encounter [facility] 05-27-2022 History of Present illness Narrative [...] showed no definite evidence of distant disease. ([id number]) We again briefly reviewed the rationale, logistics, [...] which included preparing to see the patient, elxu-xt-ynbj patient care, and counseling and educating the patient/family/caregiver. This document has been created with the use of voice recognition technology. It may contain inaccuracies, misspellings, inaccurate syntax or inappropriate word context that are a result of the inadequacies/shortcomings of said technology/software. documented in this encounter [facility] 05-27-2022 History of Present illness Narrative Images from the original note were not included. NAME: Nicol Reynathia CLINIC NO.: [id number] DATE OF SERVICE: May 27, 2022 ([facility]) Some elements in this clinic note that are critical to medical decision making have been carefully reviewed and included from a prior clinic note dated: May 06, 2022 ([facility]) Referring Provider: Phil Dougherty Additional Clinicians involved [...] days of radiation only. Plan hydration on ,T,F of each week (start Jun 14) RTC [...] which included preparing to see the patient, klfu-ww-epzq patient care, completing clinical documentation, obtaining and/or reviewing separately obtained history, performing a medically appropriate examination, counseling and educating the patient/family/caregiver, ordering medications, tests, or procedures, communicating with other HCPs (not separately reported), and independently interpreting results (not separately reported). Paco Bonds MD, CPE Hematology and Oncology Services Provided at: [place], [place] CC: Phil Liu documented in this encounter [facility] 05-23-2022 Miscellaneous Notes The following approved [...] hours as needed. Authorizing Provider: GERARDO MCKINNON APRN.COMMUNITY RESOURCE OFFICER Pt to start Xeloda w/ XRT. Scripts for antiemetics pended. Jah Whitehead RN [facility] [facility] History of Present illness Narrative [...] Site disposition Discontinued SIGNED BY: RT Lily(R) May 21, 2022 9:53 AM documented in this encounter [facility] 05-17-2022 Miscellaneous Notes Whatever's easy - just so she doesn't take it weekly until labs are cleared. How about 1 week for the 1st week, then 4 and then the remaining days (may not be a full 6 weeks of RT - - usually just 28 days.) The capecitabine order is covered at [facility] with no co pay, did you only want her to get the capecitabine week to week? She could get a months worth then another 2 weeks after that? Please advise Lynn Cruz documented in this encounter [facility] 05-06-2022 History of Present illness Narrative Images from the original note were not included. Radiation Oncology - New Patient/Consult Note PATIENT NAME: Kirt Reyna PATIENT Signed: Toribio Michaud MD I spent a total of 60 minutes on the date of the service which included preparing to see the patient, [id number] patient care, and counseling and educating the patient/family/caregiver. This document has been created with the use of voice recognition technology. It may contain inaccuracies, misspellings, inaccurate syntax or inappropriate word context that are a result of the inadequacies/shortcomings of said technology/software. documented in this encounter [facility] 05-06-2022 History of Present illness Narrative This encounter was opened in error. 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 Was approved? No Signed by: Heidi Horta LPN documented in this encounter [facility] 05-06-2022 History of Present illness Narrative Images from the original note were not included. NAME: iKrt Reyna [facility] NO.: [id number] DATE OF SERVICE: May 06, 2022 Referring Provider: Phil Dougherty Consultation requested by Dr. Dougherty for an opinion regarding Ms. Kirt Reyna, and my final recommendations will be communicated back to the requesting physician by way of shared medical record or letter via US mail. Additional Clinicians involved in Kirt Reyna's care: Sondra Liu, Vitaly Toribio Vaughn DIAGNOSIS: Anal Ca. ASSESSMENT: 52 year old [...] which included preparing to see the patient, [id number] patient care, completing clinical documentation, obtaining and/or reviewing separately obtained history, performing a medically appropriate examination, counseling and educating the patient/family/caregiver, ordering medications, tests, or procedures, communicating with other HCPs (not separately reported), and independently interpreting results (not separately reported). Paco Bonds MD, CPE Hematology [facility] Oncology Services Provided at: [place], [place] CC: Phil Liu documented in this encounter [facility] 05-06-2022 Nurse Note Patient is concerned about getting Chemo due to having POTS, she spoke to Dr. Michaud and another Physician and they do not think she needs Chemo but wants to discuss this with you. Radha Lunsford MA documented in this encounter [facility] 05-02-2022 Nurse Note What is the [...] No Drains: No documented in this encounter [facility] 05-02-2022 History of Present illness Narrative COLORECTAL SURGERY May 02, 2022 Kirt Reyna 52 year old This consult was requested by Dr. Liu and my final recommendations will be communicated to the requesting health care provider by way of the shared medical record for internal providers or letter via the [employer] for external providers. Chief Complaint: [...] reveals left sided and posterior anorectal mass School Counsellor present: Yes, Whitley Pina Anoscopy: The patient [...] morbidity, mortality and/or complications of treatment plan: [facility] Phil Dougherty MD Colorectal Surgery documented in this encounter [facility] 04-24-2022 Note OPERATIVE NOTE OPERATION DATE: [...] in good condition. CC: Sondra Liu M.D. [facility] 02-20-2022 Note Chief Complaint consultation for hemorroids [...] mellitus type 2: Father. Parkinson disease: Father. [facility] Comment on above: Result Comment: Elec tronically Signed By: RODERICK SERNA, Vitaly Cassidy\hien\Date and Time Signed: 02/20/22 17:08 EDT Evaluation + Plan note No data available for this section General Surgery [place] Evaluation note Diagnosis Rectal mass- Primary Other symptoms involving digestive system Anal cancer (HCC) Malignant neoplasm of anus, unspecified site documented in this encounter [facility] note* Diagnosis OPENED IN ERROR- Primary To allow closing an encounter opened in error (used in SmartSet) documented in this encounter [facility] note* Diagnosis Anal cancer (HCC) Malignant neoplasm of anus, unspecified site documented in this encounter [facility] note* Diagnosis Anal cancer (HCC) Malignant neoplasm of anus, unspecified site [facility]* Diagnosis Anal cancer (HCC)- Primary Malignant neoplasm of anus, unspecified site POTS (postural orthostatic tachycardia syndrome) Tachycardia, unspecified documented in this encounter [facility] note* Diagnosis Anal cancer (HCC)- Primary Malignant neoplasm of anus, unspecified site documented in this [facility]* Diagnosis Anal cancer (HCC)- Primary Malignant neoplasm of anus, unspecified site documented in this encounter [facility]* Diagnosis Anal cancer (HCC)- Primary Malignant neoplasm of anus, unspecified site [facility] Anal cancer ([facility])- Primary Malignant neoplasm of anus, unspecified site POTS (postural orthostatic tachycardia syndrome) Tachycardia, unspecified documented in this encounter [facility] note* Diagnosis Anal cancer (HCC)- Primary Malignant neoplasm of anus, unspecified site POTS (postural orthostatic tachycardia syndrome) Tachycardia, unspecified documented in this encounter [facility] note* Diagnosis Anal cancer (HCC) Malignant neoplasm of anus, unspecified site documented in this encounter [facility] note* Diagnosis Anal cancer (HCC)- Primary Malignant neoplasm of anus, unspecified site POTS (postural orthostatic tachycardia syndrome) Tachycardia, unspecified documented in this encounter [facility] note* Diagnosis Anal cancer (HCC)- Primary Malignant neoplasm of anus, unspecified site POTS (postural orthostatic tachycardia syndrome) Tachycardia, unspecified documented in this encounter [facility] note* Diagnosis Anal cancer (HCC)- Primary Malignant neoplasm of anus, unspecified site POTS (postural orthostatic tachycardia syndrome) Tachycardia, unspecified documented in this encounter [facility] note* Diagnosis Anal cancer (HCC)- Primary Malignant neoplasm of anus, unspecified site POTS (postural orthostatic tachycardia syndrome) Tachycardia, unspecified documented in this encounter [facility] note* Diagnosis Anal cancer (HCC)- Primary Malignant neoplasm of anus, unspecified site documented in this encounter [facility] note* Diagnosis Anal cancer (HCC)- Primary Malignant neoplasm of anus, unspecified site documented in this encounter [facility] note* Diagnosis Anal cancer (HCC)- Primary Malignant neoplasm of anus, unspecified site POTS (postural orthostatic tachycardia syndrome) Tachycardia, unspecified documented in this encounter [facility] note* Diagnosis Anal cancer (HCC)- Primary Malignant neoplasm of anus, unspecified site POTS (postural orthostatic tachycardia syndrome) Tachycardia, unspecified documented in this encounter [facility] note* Diagnosis Anal cancer (HCC)- Primary Malignant neoplasm of anus, unspecified site POTS (postural orthostatic tachycardia syndrome) Tachycardia, unspecified documented in this encounter [facility] note* Diagnosis Anal cancer (HCC)- Primary Malignant neoplasm of anus, unspecified site documented in this encounter [facility] note* Diagnosis Anal cancer (HCC)- Primary Malignant neoplasm of anus, unspecified site POTS (postural orthostatic tachycardia syndrome) Tachycardia, unspecified [facility] Diagnosis Anal cancer (HCC)- Primary Malignant neoplasm of anus, unspecified site POTS (postural orthostatic tachycardia syndrome) Tachycardia, unspecified [facility] Diagnosis Anal cancer (HCC)- Primary Malignant neoplasm of anus, unspecified site POTS (postural orthostatic tachycardia syndrome) Tachycardia, unspecified documented in this encounter [facility]* Diagnosis Anal cancer (HCC)- Primary Malignant neoplasm of anus, unspecified site POTS (postural orthostatic tachycardia syndrome) Tachycardia, unspecified documented in this encounter [facility]* Diagnosis Anal cancer (HCC)- Primary Malignant neoplasm of anus, unspecified site documented in this encounter [facility]* Diagnosis Anal cancer (HCC)- Primary Malignant neoplasm of anus, unspecified site POTS (postural orthostatic tachycardia syndrome) Tachycardia, unspecified documented in this encounter [facility] note* Diagnosis Anal cancer (HCC)- Primary Malignant neoplasm of anus, unspecified site [facility] Diagnosis Anal cancer (HCC) Malignant neoplasm of anus, unspecified site [facility] Diagnosis Anal cancer (HCC)- Primary Malignant neoplasm of anus, unspecified site [facility] Diagnosis Anal cancer (HCC)- Primary Malignant neoplasm of anus, unspecified site POTS (postural orthostatic tachycardia syndrome) Tachycardia, unspecified documented in this encounter 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* Diagnosis Encounter for follow-up surveillance of anal cancer- Primary [facility] Diagnosis Encounter for screening for osteoporosis- Primary Special screening for osteoporosis Symptomatic menopausal or female climacteric states Rectal cancer (HCC) Malignant neoplasm of rectum documented in this encounter 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* Diagnosis Anal cancer (HCC)- Primary Malignant neoplasm of anus, unspecified site POTS (postural orthostatic tachycardia syndrome) Tachycardia, unspecified Encounter for follow-up surveillance of anal cancer- Primary [facility] Diagnosis Encounter for follow-up surveillance of anal cancer- Primary [facility] Diagnosis Encounter for screening for osteoporosis- Primary Special screening for osteoporosis 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 Anal cancer (HCC) Malignant neoplasm of anus, unspecified site [facility] Diagnosis Anal itching- Primary Pruritus ani Diarrhea, unspecified type [facility] Diagnosis 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, unspecified site [facility] Diagnosis Anal cancer (HCC) Malignant neoplasm of anus, unspecified site [facility] Diagnosis Anal cancer (HCC) Malignant neoplasm of anus, unspecified site [facility] Diagnosis Anal cancer (HCC) Malignant neoplasm of anus, unspecified site [facility] Diagnosis Encounter for follow-up surveillance of anal cancer- Primary [facility] Diagnosis 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 [facility] Diagnosis Anal cancer (HCC) Malignant neoplasm of anus, unspecified site POTS (postural orthostatic tachycardia syndrome) Tachycardia, unspecified documented in this encounter [facility] note* Diagnosis Anal cancer (HCC)- Primary Malignant neoplasm of anus, unspecified site Encounter for follow-up surveillance of anal cancer- Primary documented in this encounter [facility] note* Diagnosis Encounter for follow-up surveillance of anal cancer- Primary documented in this encounter [facility] note* Diagnosis Well woman exam with routine gynecological exam Routine gynecological examination Encounter for screening mammogram for malignant neoplasm of breast Postmenopausal state Asymptomatic postmenopausal status (age-related) (natural) documented in this encounter [facility] instructions No data available for this section General Surgery [facility] Progress note No data available for this section General Surgery [place] Reason for visit Narrative* MRI/CT (Routine) - Closed Specialty Diagnoses / Procedures Referred By Dimitri aleman Referred To Contact MR IMAGING Diagnoses Malignant neoplasm of pelvis (HCC) Procedures MRI RECTUM WO/W IVCON MRI PELVIS W/O & W/CONTRAST MATERIAL Toribio Michaud MD [address] [place] [address] [place] [address] Phone: tel: fax: [place] [address] Referral ID Status Reason Start Date Expiration Date V isits Requested Visits Authorized [id number] Closed Auto-Generat ed Referral Patient Cleared - Admin/Chairm an/Director advise to proceed or did not respond 10/13/2024 11/12/2024 1 1 [facility] Reason for Referral Specialty Diagnoses / Procedures Referred By Dimitri aleman Referred To Contact Radiology / CT IMAGING Diagnoses Malignant neoplasm of anus (HCC) Procedures CT CHEST WO IVCON DIAGNOSTIC COMPUTED TOMOGRAPHY THORAX W/O CNTRST Toribio Michaud MD [address] [place] [address] Toribio Michaud MD [address] [place], [place] [address] [address] Referral ID Status Reason Start Date Expiration Date V isits Requested Visits Authorized [id number] Denied Auto-Generat ed Referral Patient Cleared - Admin/Chairm an/Director advise to proceed or did not respond 09/18/2023 10/18/2023 1 0 Specialty Diagnoses / Procedures Referred By Contac t Referred To Contact CT IMAGING Diagnoses Malignant neoplasm of anus (HCC) Procedures CT CHEST WO IVCON DIAGNOSTIC COMPUTED TOMOGRAPHY THORAX W/O CNTRST Toribio Michaud MD [address] [place] [address] [place] [address] Ct Imaging [place] [address] Referral ID Status Reason Start Date Expiration Date Visits Requested Visits Authorized [id number] Waiting for Response Auto-Generat ed Referral 09/18/2023 10/18/2023 1 1 Specialty Diagnoses / Procedures Referred By Contac t Referred To Contact MR IMAGING Diagnoses Malignant neoplasm of anus (HCC) Procedures MRI ABDOMEN WO/W IVCON MRI ABDOMEN W/O & W/CONTRAST MATERIAL Toribio Michaud MD [address] [place] [address] [place] [address] [facility] [place] [address] Referral ID Status Reason Start Date Expiration Date Visits Requested Visits Authorized [id number] Authorized Auto-Generat ed Referral 09/16/2023 10/16/2023 1 1 Specialty Diagnoses / Procedures Referred By Contac t Referred To Contact MR IMAGING Diagnoses Malignant neoplasm of anus (HCC) Procedures MRI RECTUM WO/W IVCON MRI PELVIS W/O & W/CONTRAST MATERIAL Toribio Michaud MD [address] [place] [address] [place] [address] [facility] [place] [address] Referral ID Status Reason Start Date Expiration Date Visits Requested Visits Authorized [id number] Authorized Auto-Generat ed Referral 09/16/2023 10/16/2023 1 1 Specialty Diagnoses / Procedures Referred By Contac t Referred To Contact [facility] Diagnoses Malignant neoplasm of anus (HCC) Procedures CONSULT TO PHYSICAL THERAPY PHYSICAL THERAPY EVALUATION HIGH COMPLEX 45 MINS Toribio Michaud MD [address] [place] [address] [place] [address] [facility] [place] [address] [place] [address] Referral ID Status Reason Start Date Expiration Date V isits Requested Visits Authorized [id number] Closed Auto-Generate d Referral 09/06/2022 09/06/2023 1 1 Specialty Diagnoses / Procedures Referred By Contac t Referred To Contact MR IMAGING Diagnoses Malignant neoplasm of anus (HCC) Procedures MRI RECTUM WO/W IVCON MRI PELVIS W/O & W/CONTRAST MATERIAL Toribio Michaud MD [address] [place] [address] [place] [address] Mr Imaging Referral ID Status Reason Start Date Expiration Date Visits Requested Visits Authorized [id number] Pending Review Auto-Generat ed Referral 10/14/2022 10/04/2023 1 1 Specialty Diagnoses / Procedures Referred By Contac t Referred To Contact Radiation Oncology Diagnoses Anal cancer (HCC) Procedures RAD/ONC CONSULT OFFICE/OUTPATIENT [facility] MDM 60-[place] [address] [place] [address] Referral ID Status Reason Start Date Expiration Date Visits Requested Visits Authorized [id number] Authorized PCP Requested Referral 2 05/02/2023 1 1 Specialty Diagnoses / Procedures Referred By Contac t Referred To Contact Oncology Diagnoses Anal cancer (HCC) Procedures CONSULT TO ONCOLOGY OFFICE/OUTPATIENT [facility] MDM 60-[place] [address] [place] [address] Referral ID Status Reason Start Date Expiration Date Visits Requested Visits Authorized [id number] Authorized PCP Requested Referral 2 05/02/2023 1 1 Specialty Diagnoses / Procedures Referred By Contac t Referred To Contact CT IMAGING Diagnoses Anal cancer (HCC) Procedures CT ABDOMEN W IVCON [place] ABDOMEN [place] [address] [address] [place] [address] Ct Imaging Referral ID Status Reason Start Date Expiration Date Visits Requested Visits Authorized [id number] Pending Review Auto-Generat ed Referral 2 06/01/2023 1 1 Specialty Diagnoses / Procedures Referred By Contac t Referred To Contact CT IMAGING Diagnoses Anal cancer (HCC) Procedures CT CHEST W IVCON DIAGNOSTIC COMPUTED TOMOGRAPHY THORAX [place] [address] [address] [place] [address] Ct Imaging Referral ID Status Reason Start Date Expiration Date Visits Requested Visits Authorized [id number] Pending Review Auto-Generat ed Referral 2 06/01/2023 1 1 Specialty Diagnoses / Procedures Referred By Contac t Referred To Contact MR IMAGING Diagnoses Anal cancer (HCC) Procedures MRI RECTUM WO/W IVCON MRI PELVIS W/O & [place] [address] [address] [place] [address] Mr Imaging Referral ID Status Reason Start Date Expiration Date Visits Requested Visits Authorized [id number] Pending Review Auto-Generat ed Referral 2 06/01/2023 [...] Care Team (unrecognized sect ion and content) Java Analyst Relationship Specialty Start Date End Date Sondra Liu MD PCP - General Family Medicine 08/17/13 Java Analyst Relationship Specialty Start Date End Date Sondra Liu MD PCP - General Family Medicine 08/17/13 Java Analyst Relationship Specialty Start Date End Date Sondra Liu MD PCP - General Family Medicine 08/17/13 Java Analyst Relationship Specialty Start Date End Date Sondra Liu MD PCP - General Family Medicine 08/17/13 Java Analyst Relationship Specialty Start Date End Date Sondra Liu MD PCP - General Family Medicine 08/17/13 Java Analyst Relationship Specialty Start Date End Date Sondra Liu MD PCP - General Family Medicine 08/17/13 Paco Bonds MD [address] [place] [address] [place] [address] Physician Hematology/Oncology 05/23/22 Gerardo Mckinnon, NON DESTRUCTIVE EVALUATION MANAGER.COMMUNITY RESOURCE OFFICER [address] [place] [address] Nurse Practitioner Hematology/Oncology 05/23/22 Jah Whitehead, BLAIR [address] [place] [address] Specialty Quality Control Inspector Heading Hematology/Oncology 05/23/22 Toribio Michaud MD [address] [place] [address] Physician Radiation Oncology 05/23/22 Java Analyst Relationship Specialty Start Date End Date Sondra Liu MD PCP - General Family Medicine 08/17/13 Paco Bonds MD [address] [place] [address] Physician Hematology/Oncology 05/23/22 Gerardo Mckinnon, NON DESTRUCTIVE EVALUATION MANAGER.COMMUNITY RESOURCE OFFICER [address] [address] Nurse Practitioner Hematology/Oncology 05/23/22 Jah Whitehead, BLAIR [address] [place] [address] Specialty Quality Control Inspector Heading Hematology/Oncology 05/23/22 Toribio Michaud MD [address] [place] [address] Physician Radiation Oncology 05/23/22 Java Analyst Relationship Specialty Start Date End Date Sondra Liu MD PCP - General Family Medicine 08/17/13 Paco Bonds MD [address] [facility] [place] [address] Physician Hematology/Oncology 05/23/22 Gerardo Mckinnon, NON DESTRUCTIVE EVALUATION MANAGER.COMMUNITY RESOURCE OFFICER [address] [place] [address] Nurse Practitioner Hematology/Oncology 05/23/22 Jah Whitehead, BLAIR [address] [address] Specialty Quality Control Inspector Heading Hematology/Oncology 05/23/22 Toribio Michaud MD [address] [address] Physician Radiation Oncology 05/23/22 Java Analyst Relationship Specialty Start Date End Date Sondra Liu MD PCP - General Family Medicine 08/17/13 Paco Bonds MD [address] [address] Physician Hematology/Oncology 05/23/22 Gerardo Mckinnon, NON DESTRUCTIVE EVALUATION MANAGER.COMMUNITY RESOURCE OFFICER [address] [address] Nurse Practitioner Hematology/Oncology 05/23/22 Jah Whitehead, BLAIR [address] [address] Specialty Quality Control Inspector Heading Hematology/Oncology 05/23/22 Toribio Michaud MD [address] [address] Physician Radiation Oncology 05/23/22 Java Analyst Relationship Specialty Start Date End Date Sondra Liu MD PCP - General Family Medicine 08/17/13 Paco Bonds MD [address] [address] Physician Hematology/Oncology 05/23/22 Gerardo Mckinnon, NON DESTRUCTIVE EVALUATION MANAGER.COMMUNITY RESOURCE OFFICER [address] [address] Nurse Practitioner Hematology/Oncology 05/23/22 Jah Whitehead, BLAIR [address] [facility] [address] Specialty Quality Control Inspector Heading Hematology/Oncology 05/23/22 Toribio Michaud MD [address] [facility] [address] Physician Radiation Oncology 05/23/22 Java Analyst Relationship Specialty Start Date End Date Sondra Liu MD PCP - General Family Medicine 08/17/13 Paco Bonds MD [address] [facility] [address] Physician Hematology/Oncology 05/23/22 Gerardo Mckinnon, NON DESTRUCTIVE EVALUATION MANAGER.COMMUNITY RESOURCE OFFICER [address] [address] Nurse Practitioner Hematology/Oncology 05/23/22 Jah Whitehead, BLAIR [address] [address] Specialty Quality Control Inspector Heading Hematology/Oncology 05/23/22 Toribio Michaud MD [address] [facility] [address] Physician Radiation Oncology 05/23/22 Java Analyst Relationship Specialty Start Date End Date Sondra Liu MD PCP - General Family Medicine 08/17/13 Paco Bonds MD [address] [address] Physician Hematology/Oncology 05/23/22 Gerardo Mckinnon, NON DESTRUCTIVE EVALUATION MANAGER.COMMUNITY RESOURCE OFFICER [address] [address] Nurse Practitioner Hematology/Oncology 05/23/22 Jah Whitehead, BLAIR [address] [address] Specialty Quality Control Inspector Heading Hematology/Oncology 05/23/22 Toribio Michaud MD [address] [facility] [address] Physician Radiation Oncology 05/23/22 Java Analyst Relationship Specialty Start Date End Date Sondra Liu MD PCP - General Family Medicine 08/17/13 Paco Bonds MD [address] [facility] [address] Physician Hematology/Oncology 05/23/22 Gerardo Mckinnon, NON DESTRUCTIVE EVALUATION MANAGER.COMMUNITY RESOURCE OFFICER [address] [address] Nurse Practitioner Hematology/Oncology 05/23/22 Jah Whitehead, BLAIR [address] [address] Specialty Quality Control Inspector Heading Hematology/Oncology 05/23/22 Toribio Michaud MD [address] [facility] [address] Physician Radiation Oncology 05/23/22 Java Analyst Relationship Specialty Start Date End Date Sondra Liu MD PCP - General Family Medicine 08/17/13 Paco Bonds MD [address] [facility] [address] Physician Hematology/Oncology 05/23/22 Gerardo Mckinnon, NON DESTRUCTIVE EVALUATION MANAGER.COMMUNITY RESOURCE OFFICER [address] [address] Nurse Practitioner Hematology/Oncology 05/23/22 Jah Whitehead, BLAIR [address] [facility] [address] Specialty Quality Control Inspector Heading Hematology/Oncology 05/23/22 Toribio Michaud MD [address] [address] Physician Radiation Oncology 05/23/22 Java Analyst Relationship Specialty Start Date End Date Sondra Liu MD PCP - General Family Medicine 08/17/13 Paco Bonds MD [address] [facility] [address] Physician Hematology/Oncology 05/23/22 Gerardo Mckinnon, NON DESTRUCTIVE EVALUATION MANAGER.COMMUNITY RESOURCE OFFICER [address] [facility] [address] Nurse Practitioner Hematology/Oncology 05/23/22 Jah Whitehead, BLAIR [address] [facility] [address] Specialty Quality Control Inspector Heading Hematology/Oncology 05/23/22 Toribio Michaud MD [address] [facility] [address] Physician Radiation Oncology 05/23/22 Java Analyst Relationship Specialty Start Date End Date Sondra Liu MD PCP - General Family Medicine 08/17/13 Paco Bonds MD [address] [facility] [address] Physician Hematology/Oncology 05/23/22 Gerardo Mckinnon, NON DESTRUCTIVE EVALUATION MANAGER.COMMUNITY RESOURCE OFFICER [address] [facility] [address] Nurse Practitioner Hematology/Oncology 05/23/22 Jah Whitehead, BLAIR [address] [facility] [place], [place] [address] Specialty Quality Control Inspector Heading Hematology/Oncology 05/23/22 Toribio Michaud MD [address] [facility] [address] Physician Radiation Oncology 05/23/22 Java Analyst Relationship Specialty Start Date End Date Sondra Liu MD PCP - General Family Medicine 08/17/13 Paco Bonds MD [address] [facility] [address] Physician Hematology/Oncology 05/23/22 Gerardo Mckinnon, NON DESTRUCTIVE EVALUATION MANAGER.COMMUNITY RESOURCE OFFICER [address] [facility] [address] Nurse Practitioner Hematology/Oncology 05/23/22 Jah Whitehead, BLAIR [address] [facility] [address] Specialty Quality Control Inspector Heading Hematology/Oncology 05/23/22 Toribio Michaud MD [address] [facility] [address] Physician Radiation Oncology 05/23/22 Java Analyst Relationship Specialty Start Date End Date Sondra Liu MD PCP - General Family Medicine 08/17/13 Paco Bonds MD [address] [facility] [address] Physician Hematology/Oncology 05/23/22 Gerardo Mckinnon, NON DESTRUCTIVE EVALUATION MANAGER.COMMUNITY RESOURCE OFFICER [address] [facility] [address] Nurse Practitioner Hematology/Oncology 05/23/22 Jah Whitehead, BLAIR [address] [facility] [address] Specialty Quality Control Inspector Heading Hematology/Oncology 05/23/22 Toribio Michaud MD [address] [facility] [address] Physician Radiation Oncology 05/23/22 Java Analyst Relationship Specialty Start Date End Date Sondra Liu MD PCP - General Family Medicine 08/17/13 Paco Bonds MD [address] [facility] [address] Physician Hematology/Oncology 05/23/22 Gerardo Mckinnon, NON DESTRUCTIVE EVALUATION MANAGER.[facility] [address] [address] Nurse Practitioner Hematology/Oncology 05/23/22 Jah Whitehead, BLAIR [address] [address] Specialty Quality Control Inspector Heading Hematology/Oncology 05/23/22 Toribio Michaud MD [address] [address] Physician Radiation Oncology 05/23/22 Java Analyst Relationship Specialty Start Date End Date Sondra Liu MD PCP - General Family Medicine 08/17/13 Paco Bonds MD [address] [address] Physician Hematology/Oncology 05/23/22 Gerardo Mckinnon, NON DESTRUCTIVE EVALUATION MANAGER.COMMUNITY RESOURCE OFFICER [address] [address] Nurse Practitioner Hematology/Oncology 05/23/22 Jah Whitehead, BLAIR [address] [address] Specialty Quality Control Inspector Heading Hematology/Oncology 05/23/22 Toribio Michaud MD [address] [address] Physician Radiation Oncology 05/23/22 Java Analyst Relationship Specialty Start Date End Date Sondra Liu MD PCP - General Family Medicine 08/17/13 Paco Bonds MD [address] [address] Physician Hematology/Oncology 05/23/22 Gerardo Mckinnon, NON DESTRUCTIVE EVALUATION MANAGER.COMMUNITY RESOURCE OFFICER [address] [address] Nurse Practitioner Hematology/Oncology 05/23/22 Jah Whitehead, BLAIR [address] [address] Specialty Quality Control Inspector Heading Hematology/Oncology 05/23/22 Toribio Michaud MD [address] [address] Physician Radiation Oncology 05/23/22 Java Analyst Relationship Specialty Start Date End Date Sondra Liu MD PCP - General Family Medicine 08/17/13 Paco Bonds MD [address] [address] Physician Hematology/Oncology 05/23/22 Gerardo Mckinnon, NON DESTRUCTIVE EVALUATION MANAGER.COMMUNITY RESOURCE OFFICER [address] [facility] [address] Nurse Practitioner Hematology/Oncology 05/23/22 Jah Whitehead, BLAIR [address] [facility] [address] [place], [place] [address] Specialty Quality Control Inspector Heading Hematology/Oncology 05/23/22 Toribio Michaud MD [address] [facility] [address] Physician Radiation Oncology 05/23/22 Java Analyst Relationship Specialty Start Date End Date Sondra Liu MD PCP - General Family Medicine 08/17/13 Paco Bonds MD [address] [facility] [place] [address] Physician Hematology/Oncology 05/23/22 Gerardo Mckinnon, NON DESTRUCTIVE EVALUATION MANAGER.[facility] [address] [address] Nurse Practitioner Hematology/Oncology 05/23/22 Jah Whitehead, BLAIR [address] [facility] [address] [address] [place], [place] [address] Specialty Quality Control Inspector Heading Hematology/Oncology 05/23/22 Toribio Michaud MD [address] [facility] [address] Physician Radiation Oncology 05/23/22 Java Analyst Relationship Specialty Start Date End Date Sondra Liu MD PCP - General Family Medicine 08/17/13 Paco Bonds MD [address] [facility] [address] Physician Hematology/Oncology 05/23/22 Gerardo Mckinnon, NON DESTRUCTIVE EVALUATION MANAGER.COMMUNITY RESOURCE OFFICER [address] [address] Nurse Practitioner Hematology/Oncology 05/23/22 Jah Whitehead, BLAIR [address] [facility] [address] [place], [place] [address] Specialty Quality Control Inspector Heading Hematology/Oncology 05/23/22 Toribio Michaud MD [address] [facility] [address] [place], [place] [address] Physician Radiation Oncology 05/23/22 Java Analyst Relationship Specialty Start Date End Date Sondra Liu MD PCP - General Family Medicine 08/17/13 Paco Bonds MD [address] [facility] [place] [address] Physician Hematology/Oncology 05/23/22 Gerardo Mckinnon, NON DESTRUCTIVE EVALUATION MANAGER.COMMUNITY RESOURCE OFFICER [address] [address] Nurse Practitioner Hematology/Oncology 05/23/22 Jah Whitehead, BLAIR [address] [facility] [address] [address] [place], [place] [address] Specialty Quality Control Inspector Heading Hematology/Oncology 05/23/22 Toribio Michaud MD [address] [facility] [address] Physician Radiation Oncology 05/23/22 Java Analyst Relationship Specialty Start Date End Date Sondra Liu MD PCP - General Family Medicine 08/17/13 Paco Bonds MD [address] [facility] [address] Physician Hematology/Oncology 05/23/22 Gerardo Mckinnon, NON DESTRUCTIVE EVALUATION MANAGER.COMMUNITY RESOURCE OFFICER [address] [facility] [address] Nurse Practitioner Hematology/Oncology 05/23/22 Jah Whitehead, BLAIR [address] [facility] [place], [place] [address] Specialty Quality Control Inspector Heading Hematology/Oncology 05/23/22 Toribio Michaud MD [address] [facility] [address] Physician Radiation Oncology 05/23/22 Java Analyst Relationship Specialty Start Date End Date Sondra Liu MD PCP - General Family Medicine 08/17/13 Paco Bonds MD [address] [facility] [place] [address] Physician Hematology/Oncology 05/23/22 Gerardo Mckinnon, NON DESTRUCTIVE EVALUATION MANAGER.COMMUNITY RESOURCE OFFICER [address] [facility] [address] Nurse Practitioner Hematology/Oncology 05/23/22 Jah Whitehead, BLAIR [address] [facility] [address] Specialty Quality Control Inspector Heading Hematology/Oncology 05/23/22 Toribio Michaud MD [address] [facility] [address] Physician Radiation Oncology 05/23/22 Java Analyst Relationship Specialty Start Date End Date Sondra Liu MD PCP - General Family Medicine 08/17/13 Paco Bonds MD [address] [facility] [address] [place], [place] 2962165 [phone] Physician Hematology/Oncology 05/23/22 Gerardo Mckinnon, NON DESTRUCTIVE EVALUATION MANAGER.COMMUNITY RESOURCE OFFICER [address] [address] Nurse Practitioner Hematology/Oncology 05/23/22 Jah Whitehead, BLAIR [address] [facility] [address] [place], [place] [address] Specialty Quality Control Inspector Heading Hematology/Oncology 05/23/22 Toribio Michaud MD [address] [facility] [address] Physician Radiation Oncology 05/23/22 Java Analyst Relationship Specialty Start Date End Date Sondra Liu MD PCP - General Family Medicine 08/17/13 Paco Bonds MD [address] [facility] [address] [place], [place] [address] Physician Hematology/Oncology 05/23/22 Gerardo Mckinnon, NON DESTRUCTIVE EVALUATION MANAGER.COMMUNITY RESOURCE OFFICER [address] [facility] [address] Nurse Practitioner Hematology/Oncology 05/23/22 Jah Whitehead, BLAIR [address] [facility] [address] Specialty Quality Control Inspector Heading Hematology/Oncology 05/23/22 Toribio Michaud MD [address] [facility] [address] [place], [place] 6918486 [phone] Physician Radiation Oncology 05/23/22 Java Analyst Relationship Specialty Start Date End Date Sondra Liu MD PCP - General Family Medicine 08/17/13 Paco Bonds MD [address] [facility] [place] [address] Physician Hematology/Oncology 05/23/22 Gerardo Mckinnon, NON DESTRUCTIVE EVALUATION MANAGER.COMMUNITY RESOURCE OFFICER [address] [facility] [address] Nurse Practitioner Hematology/Oncology 05/23/22 Jah Whitehead, RN [address] [facility] [address] [place], [place] [address] Specialty Quality Control Inspector Heading Hematology/Oncology 05/23/22 Toribio Michaud MD [address] [facility] [address] [place], [place] [address] Physician Radiation Oncology 05/23/22 Java Analyst Relationship Specialty Start Date End Date Sondra Liu MD PCP - General Family Medicine 08/17/13 Paco Bonds MD [address] [facility] [place] [address] Physician Hematology/Oncology 05/23/22 Gerardo Mckinnon, NON DESTRUCTIVE EVALUATION MANAGER.COMMUNITY RESOURCE OFFICER [address] [facility] [address] Nurse Practitioner Hematology/Oncology 05/23/22 Jah Whitehead, RN [address] [facility] [address] Specialty Quality Control Inspector Heading Hematology/Oncology 05/23/22 Toribio Michaud MD [address] [facility] [place] [address] Physician Radiation Oncology 05/23/22 Java Analyst Relationship Specialty Start Date End Date Sondra Liu MD PCP - General Family Medicine 08/17/13 Paco Bonds MD [address] [facility] [address] Physician Hematology/Oncology 05/23/22 Gerardo Mckinnon, NON DESTRUCTIVE EVALUATION MANAGER.COMMUNITY RESOURCE OFFICER [address] [facility] [address] Nurse Practitioner Hematology/Oncology 05/23/22 Jah Whitehead, RN [address] [facility] [place] [address] Specialty Quality Control Inspector Heading Hematology/Oncology 05/23/22 Toribio Michaud MD [address] [facility] [place] [address] Physician Radiation Oncology 05/23/22 Java Analyst Relationship Specialty Start Date End Date Sondra Liu MD PCP - General Family Medicine 08/17/13 Paco Bonds MD [address] [facility] [place] [address] Physician Hematology/Oncology 05/23/22 Gerardo Mckinnon, NON DESTRUCTIVE EVALUATION MANAGER.COMMUNITY RESOURCE OFFICER [address] [facility] [place] [address] Nurse Practitioner Hematology/Oncology 05/23/22 Jah Whitehead, BLAIR [address] [facility] [place] [address] Specialty Quality Control Inspector Heading Hematology/Oncology 05/23/22 Toribio Michaud MD [address] [facility] [place] [address] Physician Radiation Oncology 05/23/22 Java Analyst Relationship Specialty Start Date End Date Sondra Liu MD PCP - General Family Medicine 08/17/13 Paco Bonds MD [address] [facility] [place] [address] Physician Hematology/Oncology 05/23/22 Gerardo Mckinnon, NON DESTRUCTIVE EVALUATION MANAGER.COMMUNITY RESOURCE OFFICER [address] [facility] [place] [address] Nurse Practitioner Hematology/Oncology 05/23/22 Jah Whitehead, RN [address] [facility] [place] [address] Specialty Quality Control Inspector Heading Hematology/Oncology 05/23/22 Toribio Michaud MD [address] [facility] [address] [place], [place] [address] Physician Radiation Oncology 05/23/22 Java Analyst Relationship Specialty Start Date End Date Sondra Liu MD PCP - General Family Medicine 08/17/13 Paco Bonds MD [address] [facility] [place] [address] Physician Hematology/Oncology 05/23/22 Gerardo Mckinnon, NON DESTRUCTIVE EVALUATION MANAGER.COMMUNITY RESOURCE OFFICER [address] [facility] [place] [address] Nurse Practitioner Hematology/Oncology 05/23/22 Jah Whitehead RN [address] [facility] [place] [address] Specialty Quality Control Inspector Heading Hematology/Oncology 05/23/22 Toribio Michaud MD [address] [facility] [place] [address] Physician Radiation Oncology 05/23/22 Java Analyst Relationship Specialty Start Date End Date Sondra Liu MD PCP - General Family Medicine 08/17/13 Paco Bonds MD [address] [facility] [place] [address] Physician Hematology/Oncology 05/23/22 Gerardo Mckinnon, NON DESTRUCTIVE EVALUATION MANAGER.COMMUNITY RESOURCE OFFICER [address] [place] [address] Nurse Practitioner Hematology/Oncology 05/23/22 Jah Whitehead, BLAIR [address] [facility] [address] Specialty Quality Control Inspector Heading Hematology/Oncology 05/23/22 Toribio Michaud MD [address] [facility] [address] Physician Radiation Oncology 05/23/22 Java Analyst Relationship Specialty Start Date End Date Sondra Liu MD PCP - General Family Medicine 08/17/13 Paco Bonds MD [address] [facility] [place] [address] Physician Hematology/Oncology 05/23/22 Gerardo Mckinnon, NON DESTRUCTIVE EVALUATION MANAGER.COMMUNITY RESOURCE OFFICER [address] [facility] [place] [address] Nurse Practitioner Hematology/Oncology 05/23/22 Toribio Michaud MD [address] [facility] [place] [address] Physician Radiation Oncology 05/23/22 Java Analyst Relationship Specialty Start Date End Date Sondra Liu MD PCP - General Family Medicine 08/17/13 Paco Bonds MD [address] [facility] [address] Physician Hematology/Oncology 05/23/22 Gerardo Mckinnon, NON DESTRUCTIVE EVALUATION MANAGER.COMMUNITY RESOURCE OFFICER [address] [facility] [address] Nurse Practitioner Hematology/Oncology 05/23/22 Toribio Michaud MD [address] [facility] [address] Physician Radiation Oncology 05/23/22 Java Analyst Relationship Specialty Start Date End Date Sondra Liu MD PCP - General Family Medicine 08/17/13 Paco Bonds MD [address] [facility] [address] Physician Hematology/Oncology 05/23/22 Gerardo Mckinnon, NON DESTRUCTIVE EVALUATION MANAGER.COMMUNITY RESOURCE OFFICER [address] [facility] [address] Nurse Practitioner Hematology/Oncology 05/23/22 Toribio Michaud MD [address] [facility] [address] Physician Radiation Oncology 05/23/22 Java Analyst Relationship Specialty Start Date End Date Sondra Liu MD PCP - General Family Medicine 08/17/13 Paco Bonds MD [address] [facility] [address] Physician Hematology/Oncology 05/23/22 Gerardo Mckinnon, NON DESTRUCTIVE EVALUATION MANAGER.COMMUNITY RESOURCE OFFICER [address] [facility] [address] Nurse Practitioner Hematology/Oncology 05/23/22 Toribio Michaud MD [address] [place] [address] Physician Radiation Oncology 05/23/22 Java Analyst Relationship Specialty Start Date End Date Sondra Liu MD PCP - General Family Medicine 08/17/13 Paco Bonds MD [address] [place] [address] Physician Hematology/Oncology 05/23/22 Gerardo Mckinnon, NON DESTRUCTIVE EVALUATION MANAGER.COMMUNITY RESOURCE OFFICER [address] [place] [address] Nurse Practitioner Hematology/Oncology 05/23/22 Toribio Michaud MD [address] [place] [address] Physician Radiation Oncology 05/23/22 Java Analyst Relationship Specialty Start Date End Date Sondra Liu MD PCP - General Family Medicine 08/17/13 Paco Bonds MD [address] [place] [address] Physician Hematology/Oncology 05/23/22 Gerardo Mckinnon, NON DESTRUCTIVE EVALUATION MANAGER.COMMUNITY RESOURCE OFFICER [address] [place] [address] Nurse Practitioner Hematology/Oncology 05/23/22 Toribio Michaud MD [address] [place] [address] Physician Radiation Oncology 05/23/22 Java Analyst Relationship Specialty Start Date End Date Sondra Liu MD PCP - General Family Medicine 08/17/13 Paco Bonds MD [address] [facility] [place] [address] Physician Hematology/Oncology 05/23/22 Gerardo Mckinnon, NON DESTRUCTIVE EVALUATION MANAGER.COMMUNITY RESOURCE OFFICER [address] [facility] [place] [address] Nurse Practitioner Hematology/Oncology 05/23/22 Toribio Michaud MD [address] [facility] [place] [address] Physician Radiation Oncology 05/23/22 Java Analyst Relationship Specialty Start Date End Date Sondra Liu MD PCP - General Family Medicine 08/17/13 Paco Bonds MD [address] [facility] [place] [address] Physician Hematology/Oncology 05/23/22 Gerardo Mckinnon, NON DESTRUCTIVE EVALUATION MANAGER.COMMUNITY RESOURCE OFFICER [address] [facility] [place] [address] Nurse Practitioner Hematology/Oncology 05/23/22 Toribio Michaud MD [address] [facility] [place] [address] Physician Radiation Oncology 05/23/22 Java Analyst Relationship Specialty Start Date End Date Sondra Liu MD PCP - General Family Medicine 08/17/13 Paco Bonds MD [address] [facility] [place] [address] Physician Hematology/Oncology 05/23/22 Gerardo Mckinnon, NON DESTRUCTIVE EVALUATION MANAGER.COMMUNITY RESOURCE OFFICER [address] [facility] [place] [address] Nurse Practitioner Hematology/Oncology 05/23/22 Jah Whitehead, RN [address] [facility] [place] [address] Specialty Quality Control Inspector Heading Hematology/Oncology 05/23/22 05/14/23 Toribio Michaud MD [address] [facility] [address] Physician Radiation Oncology 05/23/22 Java Analyst Relationship Specialty Start Date End Date Sondra Liu MD PCP - General Family Medicine 08/17/13 Paco Bonds MD [address] [facility] [place] [address] Physician Hematology/Oncology 05/23/22 Gerardo Mckinnon, NON DESTRUCTIVE EVALUATION MANAGER.COMMUNITY RESOURCE OFFICER [address] [facility] [place] [address] Nurse Practitioner Hematology/Oncology 05/23/22 Jah Whitehead, BLAIR [address] [facility] [place] [address] Specialty Quality Control Inspector Heading Hematology/Oncology 05/23/22 05/14/23 Toribio Michaud MD [address] [facility] [place] [place] [address] Physician Radiation Oncology 05/23/22 Java Analyst Relationship Specialty Start Date End Date Sondra Liu MD PCP - General Family Medicine 08/17/13 Java Analyst Relationship Specialty Start Date End Date Sondra Liu MD [address] [place] [address] PCP - General Family Medicine 01/06/24 Java Analyst Relationship Specialty Start Date End Date Sondra Liu MD PCP - General Family Medicine 08/17/13 Paco Bonds MD [address] [place] [address] Physician Hematology/Oncology 05/23/22 Gerardo Mckinnon, NON DESTRUCTIVE EVALUATION MANAGER.COMMUNITY RESOURCE OFFICER [address] [place] [address] Nurse Practitioner Hematology/Oncology 05/23/22 Toribio Michaud MD [address] [place] [address] Physician Radiation Oncology 05/23/22 Java Analyst Relationship Specialty Start Date End Date Sondra Liu MD PCP - General Family Medicine 08/17/13 Paco Bonds MD [address] [place] [address] Physician Hematology/Oncology 05/23/22 Gerardo Mckinnon, NON DESTRUCTIVE EVALUATION MANAGER.COMMUNITY RESOURCE OFFICER [address] [place] [address] Nurse Practitioner Hematology/Oncology 05/23/22 Toribio Michaud MD [address] [facility] [place] [address] Physician Radiation Oncology 05/23/22 Java Analyst Relationship Specialty Start Date End Date Sondra Liu MD PCP - General Family Medicine 08/17/13 Paco Bonds MD [address] [facility] [place] [address] Physician Hematology/Oncology 05/23/22 Gerardo Mckinnon APRN.COMMUNITY RESOURCE OFFICER [address] [facility] [place] [address] Nurse Practitioner Hematology/Oncology 05/23/22 Toribio Michaud MD [address] [facility] [place] [address] Physician Radiation Oncology 05/23/22 Java Analyst Relationship Specialty Start Date End Date Sondra Liu MD [address] [place] [address] PCP - General Family Medicine 01/06/24 Java Analyst Relationship Specialty Start Date End Date Sondra Liu MD [address] [place] [address] PCP - General Family Medicine 01/06/24 Source Comments (unrecognize d section and content) In the event this informatio n is protected by the Federal Confidentiality of Alcohol and Drug Abuse Patient Records regulations: The Federal rules restrict any use of the information to criminally investigate or prosecute any alcohol or drug abuse patient.[facility] the event this information is protected by the Federal Confidentiality of Alcohol and Drug Abuse Patient Records regulations: The Federal rules restrict any use of the information to criminally investigate or prosecute any alcohol or drug abuse patient.[facility]In the event this information is protected by the Federal Confidentiality of Alcohol and Drug Abuse Patient Records regulations: The Federal rules restrict any use of the information to criminally investigate or prosecute any alcohol or drug abuse patient.[facility] HospitalIn the event this information is protected by the Federal Confidentiality of Alcohol and Drug Abuse Patient Records regulations: The Federal rules restrict any use of the information to criminally investigate or prosecute any alcohol or drug abuse patient.[facility] HospitalIn the event this information is protected by the Federal Confidentiality of Alcohol and Drug Abuse Patient Records regulations: The Federal rules restrict any use of the information to criminally investigate or prosecute any alcohol or drug abuse patient.[facility] HospitalIn the event this information is protected by the Federal Confidentiality of Alcohol and Drug Abuse Patient Records regulations: The Federal rules restrict any use of the information to criminally investigate or prosecute any alcohol or drug abuse patient.[facility] HospitalIn the event this information is protected by the Federal Confidentiality of Alcohol and Drug Abuse Patient Records regulations: The Federal rules restrict any use of the information to criminally investigate or prosecute any alcohol or drug abuse patient.[facility] HospitalIn the event this information is protected by the Federal Confidentiality of Alcohol and Drug Abuse Patient Records regulations: The Federal rules restrict any use of the information to criminally investigate or prosecute any alcohol or drug abuse patient.[facility] HospitalIn the event this information is protected by the Federal Confidentiality of Alcohol and Drug Abuse Patient Records regulations: The Federal rules restrict any use of the information to criminally investigate or prosecute any alcohol or drug abuse patient.[facility] HospitalIn the event this information is protected by the Federal Confidentiality of Alcohol and Drug Abuse Patient Records regulations: The Federal rules restrict any use of the information to criminally investigate or prosecute any alcohol or drug abuse patient.[facility] HospitalIn the event this information is protected by the Federal Confidentiality of Alcohol and Drug Abuse Patient Records regulations: The Federal rules restrict any use of the information to criminally investigate or prosecute any alcohol or drug abuse patient.[facility] HospitalIn the event this information is protected by the Federal Confidentiality of Alcohol and Drug Abuse Patient Records regulations: The Federal rules restrict any use of the information to criminally investigate or prosecute any alcohol or drug abuse patient.[facility] HospitalIn the event this information is protected by the Federal Confidentiality of Alcohol and Drug Abuse Patient Records regulations: The Federal rules restrict any use of the information to criminally investigate or prosecute any alcohol or drug abuse patient.[facility] HospitalIn the event this information is protected by the Federal Confidentiality of Alcohol and Drug Abuse Patient Records regulations: The Federal rules restrict any use of the information to criminally investigate or prosecute any alcohol or drug abuse patient.[facility] HospitalIn the event this information is protected by the Federal Confidentiality of Alcohol and Drug Abuse Patient Records regulations: The Federal rules restrict any use of the information to criminally investigate or prosecute any alcohol or drug abuse patient.[facility] HospitalIn the event this information is protected by the Federal Confidentiality of Alcohol and Drug Abuse Patient Records regulations: The Federal rules restrict any use of the information to criminally investigate or prosecute any alcohol or drug abuse patient.[facility] HospitalIn the event this information is protected by the Federal Confidentiality of Alcohol and Drug Abuse Patient Records regulations: The Federal rules restrict any use of the information to criminally investigate or prosecute any alcohol or drug abuse patient.[facility] HospitalIn the event this information is protected by the Federal Confidentiality of Alcohol and Drug Abuse Patient Records regulations: The Federal rules restrict any use of the information to criminally investigate or prosecute any alcohol or drug abuse patient.[facility] HospitalIn the event this information is protected by the Federal Confidentiality of Alcohol and Drug Abuse Patient Records regulations: The Federal rules restrict any use of the information to criminally investigate or prosecute any alcohol or drug abuse patient.[facility] HospitalIn the event this information is protected by the Federal Confidentiality of Alcohol and Drug Abuse Patient Records regulations: The Federal rules restrict any use of the information to criminally investigate or prosecute any alcohol or drug abuse patient.[facility] HospitalIn the event this information is protected by the Federal Confidentiality of Alcohol and Drug Abuse Patient Records regulations: The Federal rules restrict any use of the information to criminally investigate or prosecute any alcohol or drug abuse patient.[facility] HospitalIn the event this information is protected by the Federal Confidentiality of Alcohol and Drug Abuse Patient Records regulations: The Federal rules restrict any use of the information to criminally investigate or prosecute any alcohol or drug abuse patient.[facility] HospitalIn the event this information is protected by the Federal Confidentiality of Alcohol and Drug Abuse Patient Records regulations: The Federal rules restrict any use of the information to criminally investigate or prosecute any alcohol or drug abuse patient.[facility] HospitalIn the event this information is protected by the Federal Confidentiality of Alcohol and Drug Abuse Patient Records regulations: The Federal rules restrict any use of the information to criminally investigate or prosecute any alcohol or drug abuse patient.[facility] HospitalIn the event this information is protected by the Federal Confidentiality of Alcohol and Drug Abuse Patient Records regulations: The Federal rules restrict any use of the information to criminally investigate or prosecute any alcohol or drug abuse patient.[facility] HospitalIn the event this information is protected by the Federal Confidentiality of Alcohol and Drug Abuse Patient Records regulations: The Federal rules restrict any use of the information to criminally investigate or prosecute any alcohol or drug abuse patient.[facility] HospitalIn the event this information is protected by the Federal Confidentiality of Alcohol and Drug Abuse Patient Records regulations: The Federal rules restrict any use of the information to criminally investigate or prosecute any alcohol or drug abuse patient.[facility] HospitalIn the event this information is protected by the Federal Confidentiality of Alcohol and Drug Abuse Patient Records regulations: The Federal rules restrict any use of the information to criminally investigate or prosecute any alcohol or drug abuse patient.[facility] HospitalIn the event this information is protected by the Federal Confidentiality of Alcohol and Drug Abuse Patient Records regulations: The Federal rules restrict any use of the information to criminally investigate or prosecute any alcohol or drug abuse patient.[facility] HospitalIn the event this information is protected by the Federal Confidentiality of Alcohol and Drug Abuse Patient Records regulations: The Federal rules restrict any use of the information to criminally investigate or prosecute any alcohol or drug abuse patient.[facility] HospitalIn the event this information is protected by the Federal Confidentiality of Alcohol and Drug Abuse Patient Records regulations: The Federal rules restrict any use of the information to criminally investigate or prosecute any alcohol or drug abuse patient.[facility] HospitalIn the event this information is protected by the Federal Confidentiality of Alcohol and Drug Abuse Patient Records regulations: The Federal rules restrict any use of the information to criminally investigate or prosecute any alcohol or drug abuse patient.[facility] HospitalIn the event this information is protected by the Federal Confidentiality of Alcohol and Drug Abuse Patient Records regulations: The Federal rules restrict any use of the information to criminally investigate or prosecute any alcohol or drug abuse patient.[facility] HospitalIn the event this information is protected by the Federal Confidentiality of Alcohol and Drug Abuse Patient Records regulations: The Federal rules restrict any use of the information to criminally investigate or prosecute any alcohol or drug abuse patient.[facility] HospitalIn the event this information is protected by the Federal Confidentiality of Alcohol and Drug Abuse Patient Records regulations: The Federal rules restrict any use of the information to criminally investigate or prosecute any alcohol or drug abuse patient.[facility] HospitalIn the event this information is protected by the Federal Confidentiality of Alcohol and Drug Abuse Patient Records regulations: The Federal rules restrict any use of the information to criminally investigate or prosecute any alcohol or drug abuse patient.[facility] HospitalIn the event this information is protected by the Federal Confidentiality of Alcohol and Drug Abuse Patient Records regulations: The Federal rules restrict any use of the information to criminally investigate or prosecute any alcohol or drug abuse patient.[facility] HospitalIn the event this information is protected by the Federal Confidentiality of Alcohol and Drug Abuse Patient Records regulations: The Federal rules restrict any use of the information to criminally investigate or prosecute any alcohol or drug abuse patient.[facility] HospitalIn the event this information is protected by the Federal Confidentiality of Alcohol and Drug Abuse Patient Records regulations: The Federal rules restrict any use of the information to criminally investigate or prosecute any alcohol or drug abuse patient.[facility] HospitalIn the event this information is protected by the Federal Confidentiality of Alcohol and Drug Abuse Patient Records regulations: The Federal rules restrict any use of the information to criminally investigate or prosecute any alcohol or drug abuse patient.[facility] HospitalIn the event this information is protected by the Federal Confidentiality of Alcohol and Drug Abuse Patient Records regulations: The Federal rules restrict any use of the information to criminally investigate or prosecute any alcohol or drug abuse patient.[facility] HospitalIn the event this information is protected by the Federal Confidentiality of Alcohol and Drug Abuse Patient Records regulations: The Federal rules restrict any use of the information to criminally investigate or prosecute any alcohol or drug abuse patient.[facility] HospitalIn the event this information is protected by the Federal Confidentiality of Alcohol and Drug Abuse Patient Records regulations: The Federal rules restrict any use of the information to criminally investigate or prosecute any alcohol or drug abuse patient.[facility] HospitalIn the event this information is protected by the Federal Confidentiality of Alcohol and Drug Abuse Patient Records regulations: The Federal rules restrict any use of the information to criminally investigate or prosecute any alcohol or drug abuse patient.[facility] HospitalIn the event this information is protected by the Federal Confidentiality of Alcohol and Drug Abuse Patient Records regulations: The Federal rules restrict any use of the information to criminally investigate or prosecute any alcohol or drug abuse patient.[facility] HospitalIn the event this information is protected by the Federal Confidentiality of Alcohol and Drug Abuse Patient Records regulations: The Federal rules restrict any use of the information to criminally investigate or prosecute any alcohol or drug abuse patient.[facility] HospitalIn the event this information is protected by the Federal Confidentiality of Alcohol and Drug Abuse Patient Records regulations: The Federal rules restrict any use of the information to criminally investigate or prosecute any alcohol or drug abuse patient.[facility] HospitalIn the event this information is protected by the Federal Confidentiality of Alcohol and Drug Abuse Patient Records regulations: The Federal rules restrict any use of the information to criminally investigate or prosecute any alcohol or drug abuse patient.[facility] HospitalIn the event this information is protected by the Federal Confidentiality of Alcohol and Drug Abuse Patient Records regulations: The Federal rules restrict any use of the information to criminally investigate or prosecute any alcohol or drug abuse patient.[facility] HospitalIn the event this information is protected by the Federal Confidentiality of Alcohol and Drug Abuse Patient Records regulations: The Federal rules restrict any use of the information to criminally investigate or prosecute any alcohol or drug abuse patient.[facility] HospitalIn the event this information is protected by the Federal Confidentiality of Alcohol and Drug Abuse Patient Records regulations: The Federal rules restrict any use of the information to criminally investigate or prosecute any alcohol or drug abuse patient.[facility] HospitalIn the event this information is protected by the Federal Confidentiality of Alcohol and Drug Abuse Patient Records regulations: The Federal rules restrict any use of the information to criminally investigate or prosecute any alcohol or drug abuse patient.[facility] HospitalIn the event this information is protected by the Federal Confidentiality of Alcohol and Drug Abuse Patient Records regulations: The Federal rules restrict any use of the information to criminally investigate or prosecute any alcohol or drug abuse patient.[facility] HospitalIn the event this information is protected by the Federal Confidentiality of Alcohol and Drug Abuse Patient Records regulations: The Federal rules restrict any use of the information to criminally investigate or prosecute any alcohol or drug abuse patient.[facility] HospitalIn the event this information is protected by the Federal Confidentiality of Alcohol and Drug Abuse Patient Records regulations: The Federal rules restrict any use of the information to criminally investigate or prosecute any alcohol or drug abuse patient.[facility] HospitalIn the event this information is protected by the Federal Confidentiality of Alcohol and Drug Abuse Patient Records regulations: The Federal rules restrict any use of the information to criminally investigate or prosecute any alcohol or drug abuse patient.[facility] HospitalIn the event this information is protected by the Federal Confidentiality of Alcohol and Drug Abuse Patient Records regulations: The Federal rules restrict any use of the information to criminally investigate or prosecute any alcohol or drug abuse patient.[facility] HospitalIn the event this information is protected by the Federal Confidentiality of Alcohol and Drug Abuse Patient Records regulations: The Federal rules restrict any use of the information to criminally investigate or prosecute any alcohol or drug abuse patient.[facility] HospitalIn the event this information is protected by the Federal Confidentiality of Alcohol and Drug Abuse Patient Records regulations: The Federal rules restrict any use of the information to criminally investigate or prosecute any alcohol or drug abuse patient.[facility] HospitalIn the event this information is protected by the Federal Confidentiality of Alcohol and Drug Abuse Patient Records regulations: The Federal rules restrict any use of the information to criminally investigate or prosecute any alcohol or drug abuse patient.[facility] HospitalIn the event this information is protected by the Federal Confidentiality of Alcohol and Drug Abuse Patient Records regulations: The Federal rules restrict any use of the information to criminally investigate or prosecute any alcohol or drug abuse patient.[facility] HospitalIn the event this information is protected by the Federal Confidentiality of Alcohol and Drug Abuse Patient Records regulations: The Federal rules restrict any use of the information to criminally investigate or prosecute any alcohol or drug abuse patient.[facility] HospitalIn the event this information is protected by the Federal Confidentiality of Alcohol and Drug Abuse Patient Records regulations: The Federal rules restrict any use of the information to criminally investigate or prosecute any alcohol or drug abuse patient.[facility] HospitalIn the event this information is protected by the Federal Confidentiality of Alcohol and Drug Abuse Patient Records regulations: The Federal rules restrict any use of the information to criminally investigate or prosecute any alcohol or drug abuse patient.[facility] HospitalIn the event this information is protected by the Federal Confidentiality of Alcohol and Drug Abuse Patient Records regulations: The Federal rules restrict any use of the information to criminally investigate or prosecute any alcohol or drug abuse patient.[facility] HospitalIn the event this information is protected by the Federal Confidentiality of Alcohol and Drug Abuse Patient Records regulations: The Federal rules restrict any use of the information to criminally investigate or prosecute any alcohol or drug abuse patient.[facility] HospitalIn the event this information is protected by the Federal Confidentiality of Alcohol and Drug Abuse Patient Records regulations: The Federal rules restrict any use of the information to criminally investigate or prosecute any alcohol or drug abuse patient.[facility] HospitalIn the event this information is protected by the Federal Confidentiality of Alcohol and Drug Abuse Patient Records regulations: The Federal rules restrict any use of the information to criminally investigate or prosecute any alcohol or drug abuse patient.[facility] HospitalIn the event this information is protected by the Federal Confidentiality of Alcohol and Drug Abuse Patient Records regulations: The Federal rules restrict any use of the information to criminally investigate or prosecute any alcohol or drug abuse patient.[facility] HospitalIn the event this information is protected by the Federal Confidentiality of Alcohol and Drug Abuse Patient Records regulations: The Federal rules restrict any use of the information to criminally investigate or prosecute any alcohol or drug abuse patient.[facility] HospitalIn the event this information is protected by the Federal Confidentiality of Alcohol and Drug Abuse Patient Records regulations: The Federal rules restrict any use of the information to criminally investigate or prosecute any alcohol or drug abuse patient.[facility] HospitalIn the event this information is protected by the Federal Confidentiality of Alcohol and Drug Abuse Patient Records regulations: The Federal rules restrict any use of the information to criminally investigate or prosecute any alcohol or drug abuse patient.[facility] HospitalIn the event this information is protected by the Federal Confidentiality of Alcohol and Drug Abuse Patient Records regulations: The Federal rules restrict any use of the information to criminally investigate or prosecute any alcohol or drug abuse patient.[facility] HospitalIn the event this information is protected by the Federal Confidentiality of Alcohol and Drug Abuse Patient Records regulations: The Federal rules restrict any use of the information to criminally investigate or prosecute any alcohol or drug abuse patient.[facility] HospitalIn the event this information is protected by the Federal Confidentiality of Alcohol and Drug Abuse Patient Records regulations: The Federal rules restrict any use of the information to criminally investigate or prosecute any alcohol or drug abuse patient.[facility] HospitalIn the event this information is protected by the Federal Confidentiality of Alcohol and Drug Abuse Patient Records regulations: The Federal rules restrict any use of the information to criminally investigate or prosecute any alcohol or drug abuse patient.[facility] Reason for Visit (unrecogniz ed section and content) Reason Comments New Patient Consult for rectal m ass Reason Comments Patient Education Reason Onset Date Comments Patient Education Opened In Error 05/06/2022 Reason Comments Anal cancer New patient consult Specialty Diagnoses / Procedures Referred By Contac t Referred To Contact Oncology Diagnoses Anal cancer (HCC) Procedures CONSULT TO ONCOLOGY OFFICE/OUTPATIENT NEW HIGH MDM 60-[place] [address] [place] [address] Referral ID Status Reason Start Date Expiration Date V isits Requested Visits Authorized [id number] Closed PCP Requested Referral 05/02/2022 05/02/2023 1 1 Reason Comments Consult Specialty Diagnoses / Procedures Referred By Contac t Referred To Contact Radiation Oncology Diagnoses Anal cancer (HCC) Procedures RAD/ONC CONSULT OFFICE/OUTPATIENT NEW HIGH MDM 60-[place] [address] [address] [place] [address] Referral ID Status Reason Start Date Expiration Date V isits Requested Visits Authorized [id number] Closed PCP Requested Referral 05/02/2022 05/02/2023 1 [...] Radiotherapy On-treatment Visit Reason Comments Medication Authorization Lidocaine/Granite Canon cortisone Gel Reason Comments Art Therapy Reason [...] W/O & W/CONTRAST MATERIAL Toribio Michaud MD [address] [place] [address] [place] [address] Mr Imaging Referral ID Status Reason Start Date Expiration Date V isits Requested Visits Authorized [id number] Closed Auto-Generate d Referral 09/22/2022 10/22/2022 1 1 Reason Comments Anal Cancer 1 month follow up Reason Comments Anal cancer Reason Comments Established Patient 3 month follow up , anal cancer surveillance Reason Comments Patient Question Reason Comments Results Reason Comments Anal Cancer 6 month follow up Reason Comments Appointment Reason Comments Orders Specialty Diagnoses / Procedures [facility] To Contact MR IMAGING Diagnoses Malignant neoplasm of anus (HCC) Procedures MRI RECTUM WO/W IVCON MRI PELVIS W/O & W/CONTRAST MATERIAL Toribio Michaud MD [address] [place] [address] [place] [address] [place] [address] Referral ID Status Reason Start Date Expiration Date V isits Requested Visits Authorized [id number] Closed Auto-Generate d Referral 09/16/2023 10/16/2023 1 1 Specialty Diagnoses / Procedures Referred By Contac t Referred To Contact MR IMAGING Diagnoses Malignant neoplasm of anus (HCC) Procedures MRI ABDOMEN WO/W IVCON MRI ABDOMEN W/O & W/CONTRAST MATERIAL Toribio Michaud MD [address] [place] [address] [place] [address] Referral ID Status Reason Start Date Expiration Date V isits Requested Visits Authorized [id number] Closed Auto-Generate d Referral 09/16/2023 10/16/2023 1 1 Reason Comments Anal Cancer Follow up Reason Comments Follow Up Anal cancer surveill ance Reason Comments Post Radiation Treatment Follow Up Reason Comments Established Patient presents today for e valuation of diarrhea and anal itching. Reason Comments Radiology NM Specialty Diagnoses / Procedures Referred By Contac t Referred To Contact Radiology / CT IMAGING Diagnoses Malignant neoplasm of anus (HCC) Procedures CT CHEST WO IVCON DIAGNOSTIC COMPUTED TOMOGRAPHY THORAX W/O CNTRST Toribio Michaud MD [address] [place] [address] Toribio Michaud MD [address] [place] [address] Referral ID Status Reason Start Date Expiration Date V isits Requested Visits Authorized [id number] Denied Auto-Generat ed Referral Patient Cleared - Admin/Chairm an/Director advise to proceed or did not respond 09/18/2023 10/18/2023 1 [address] Specialty Diagnoses / Procedures Referred By Contac t Referred To Contact CT IMAGING Diagnoses Anal cancer (HCC) Procedures CT CHEST W IVCON DIAGNOSTIC COMPUTED TOMOGRAPHY THORAX W/CONTRAST Paco Bonds MD [address] [place] [address] [place] [address] Referral ID Status Reason Start Date Expiration Date V isits Requested Visits Authorized [id number] Closed Auto-Generate d Referral 08/10/2022 09/09/2022 1 1 Specialty Diagnoses / Procedures Referred By Contac t Referred To Contact Radiation Oncology / RADIATION ONCOLOGY Diagnoses Malignant neoplasm of anus, unspecified IMRT 28 FX Plus sim Procedures SIMULATION CHITRA SIM REQ INCOMPLETE IMRT 28 FX Plus sim Toribio Michaud MD [address] [place] [address] Toribio Michaud MD [address] [place] [address] Referral ID Status Reason Start Date Expiration Date Visits Re quested Visits Authorized [id number] Closed 05/27/2022 07/13/2022 99 99 Specialty Diagnoses / Procedures Referred By Contac t Referred To Contact CT IMAGING Diagnoses Anal cancer (HCC) Procedures CT CHEST W IVCON DIAGNOSTIC COMPUTED TOMOGRAPHY THORAX [place] [address] [facility] [address] [place] [id number] [facility] [place] [address] Referral ID Status Reason Start Date Expiration Date V isits Requested Visits Authorized [id number] Closed Auto-Generate d Referral 05/07/2022 06/06/2022 1 1 Specialty Diagnoses / Procedures Referred By Contac t Referred To Contact CT IMAGING Diagnoses Malignant neoplasm of rectum (HCC) Procedures CT CHEST W IVCON DIAGNOSTIC COMPUTED TOMOGRAPHY THORAX W/CONTRAST Toribio Michaud MD [address] [place] [address] [place] [address] Phone: tel: fax: CT IMAGING [facility] [address] Referral ID Status Reason Start Date Expiration Date V isits Requested Visits Authorized [id number] Closed Auto-Generate d Referral 10/14/2024 11/13/2024 1 1 Reason Comments Anal cancer Reason Comments Cancer Surveillance anal Reason Comments [facility] Visit INFORMATION SOURCE (unrecogn ized section and content) DATE CREATED AUTHOR 05/06/2022 [facility] DATE CREATED AUTHOR AUTHOR'S ORGANIZ ATION 07/15/2022 [facility] DATE CREATED AUTHOR AUTHOR'S ORGANIZ ATION 09/05/2022 [facility] DATE CREATED AUTHOR AUTHOR'S ORGANIZ ATION 10/16/2022 [facility] DATE CREATED AUTHOR AUTHOR'S ORGANIZ ATION 01/07/2024 [facility] [place] [facility] EPIC DATE CREATED AUTHOR AUTHOR'S ORGANIZ ATION 10/27/2024 [facility] DATE CREATED AUTHOR AUTHOR'S ORGANIZ ATION 11/28/2024 [facility] FOR RECORDS PERTAINING TO PATIENTS WHO ARE [...] BE BASED ON THE PRIMARY CLINICAL RECORDS. [employer] [facility]. provides no warranty or guarantee of the accuracy or completeness of information in this document.
[2025-01-13 13:09] LABS: Age Gdln ACOG Testing Note (.); HPV Aptima Negative (Negative); IGP, Aptima HPV, rfx 16/18,45 Note (.)
== END 2025-01-10 20:30 | disposition home or self-care (01) ==
LOC: LAB 20:29
PROVIDERS: PCP Family Medicine; Visit Provider Obstetrics & Gynecology
DX: Z01.419 Encounter for gynecological examination (general) (routine) without abnormal findings (principal)
CPT/HCPCS: 87624; 88175

== ENCOUNTER 2025-01-31 08:03 | Outpatient (OUT) | payer OTHER, SELFPAY ==
--- OUTSIDE RECORDS SUMMARY | 2023-12-26 07:30 | XMS_ITS ---
Author Organization The [facility] in [place] Address [address] [place] [address] Care Team Providers Care Home Stager Name Role Phone Joshua Liu Primary Care Provider [phone] SONDRA LIU Unavailable [phone] Allergies Allergen (clinical drug ingredient) Drug/Non Drug Allergy documented on EMR Reaction Allergy Type Onset Date Status amoxicillin Amoxicillin hives Drug Allergy Act ezra Substance with sulfonamide structure and antibacterial mechanism of action (substance) Sulfa Antibiotics hives Drug Allergy Active REASON FOR VISIT left side abdominal pain, going to PT and excerising at home, thought she sprained a muscle, deniesfever loose stools Medications Medication SIG (Take, Route, Frequency, Duration) Notes Start Date End Date Status Cipro 500 MG 1 tablet Orally ever y 12 hrs for 12/26/2023 Active Vitamin D (Cholecalciferol) 50 MCG (1999) 1 capsule Orally Once a day Active Fludrocortisone Acetate 0.1 MG TAKE 1/2 TABLET BY MOUTH TWICE DAILY FOR 30 DAYS for 30 Active Multivitamin Active Calcium 600 MG 1 tablet with meals Orally once daily Active metroNIDAZOLE 500 MG [address] ee times a day for 12/26/2023 Active Social History Tobacco Use: Social History Observation Description Date Details (start date - stop date) Never Smoker NA - NA Tobacco Use/Smoking Question Answer Notes Patient is a nonsmoker AUDIT-C (Standard) Question Answer Notes Did you have a drink containing alcohol in the p ast year? No Points 0 Interpretation Negative Problems Problem Type SNOMED Code ICD Code Onset Dates Problem Status W/U Status Risk Notes Problem Diverticulitis (01125761) Diverticulitis (K57.92) Active confirmed Vital Signs Weight 177.4 lbs 12/26/2023 Height 66 in 12/26/2023 Blood pressure systolic 116 mm Hg 12/26/19 Blood pressure diastolic 72 mm Hg 024 Temperature 97.7 degrees Fahrenheit 12/26/19 BMI 28.63 kg/m2 12/26/2023 Encounters Encounter Location Date Provider Diagnosis [facility] [address] [facility] [place] [address] 12/26/2023 SONDRA HOY Diverticulitis K57.9 2 Assessments Encounter Date Diagnosis (ICD Code) Assessment Notes Treatment Notes Treatment Clinical Notes Section Notes 12/26/2023 Diverticulitis (ICD-10 - K57.92) Plan Of Treatment Medication Medication Name Sig Start Date Stop Date Notes Cipro 500 MG 1 tablet Orally every 12 hrs for metroNIDAZOLE 500 MG 1 tablet [address] Thr ee times a day for 12/26/2023 Progress Notes * Cherie REYNA ADOB:1970 (53 yo F)Acc No.[id number]:12/26/2023 Progress Note Patient: Cherie BARRAGAN Provider: Halina Liu M.D. :1970 A ge:53 Y S ex:Female Date:12/26/2023 Address:[address] [place], [place] [id number] Check In:11:32 AM ESTCheck O ut:12:03 PM EST Subjective: * Chief Complaints: * L eft side abdominal paingoing to PT and excerising at homeThought she sprained a muscleDenies fever loose stools * HPI: G eneral: Left sided - huyrts wtih palpoation Doig PT - seems to help - tried 1 day a week - now at prn m- doing home exercises - no eating and eating - has no effect no diearrhea - woree wiht movement. * Active Problem List C21.0 Malignant neoplasm o f anus, unspecified Modified On:03/24/2023W/U Status:confirmed M85.80 Other specified diso rders of bone density and structure, unspecified site Modified On:02/18/2023U Status:confirmed Z78.0 Asymptomatic menopau gera state Modified On:02/18/2023U Status:confirmed K21.9 Gastro-esophageal re flux disease without esophagitis Modified On:03/20/2023U Status:confirmed Z00.00 Well adult Modified On:03/24/2023/U Status:confirmed N60.19 Diffuse cystic masto lisa of unspecified breast Modified On:05/01/2023/U Status:confirmed M89.319 Clavicle enlargement Modified On:08/18/2023U Status:confirmed K57.92 Diverticulitis Modified On:12/26/2023U Status:confirmed * Medical History: * Surgical History: E GD- Esophageal Dilation and Bx 12/16/2018Ovarian Cyst Removal * Hospitalization/Major Diagno stic Procedure: D enies Past Hospitalization * Family History: F ather: 78 yrs, Parkinsons, diagnosed with Diabetes. M other: alive. S on(s): alive, asthma. D aughter(s): alive. 1 son(s) , 1 daughter(s) . . * Social History: T obacco Use: T obacco Use/Smoking P atient is a n onsmoker D rug/Alcohol: A RODNEY-C (Standard) D id you have a drink containing alcohol in the past year? N o P oints 0 I nterpretation N egative * Medications: T akingCalcium 600 MG Tablet 1 tablet with meals Orally once daily Fludrocortisone Acetate 0.1 MG Tablet TAKE 1/2 TABLET BY MOUTH TWICE DAILY FOR 30 DAYS Multivitamin Vitamin D (Cholecalciferol) 50 MCG (1999) Capsule 1 capsule Orally Once a day Medication List reviewed and reconciled with the patientTaking Calcium 600 MG Tablet 1 tablet with meals Orally once daily Taking Fludrocortisone Acetate 0.1 MG Tablet TAKE 1/2 TABLET BY MOUTH TWICE DAILY FOR 30 DAYS Taking Multivitamin Taking Vitamin D (Cholecalciferol) 50 MCG (1999) Capsule 1 capsule Orally Once a day Medication List reviewed and reconciled with the patient * Allergies: S ulfa Antibiotics: hives - AllergyAmoxicillin: hives - Allergyno[Allergies Verified] Objective: * Vitals: W t:177.4lbs, Ht: 66 in, BP:116/72mm Hg, Temp:97.7F, BMI:28.63Index, Ht-cm: 167.64 cm, Wt-k.47 kg. * Examination: A bdomen Exam:: L LQ tenderness with Rebound tenderness. Assessment: * Assessment: 1. D iverticulitis - K57.92 (Primary) Plan: * Treatment: * Procedure Codes: * Preventive Medicine: Screenings/Counseling: B [place] ACTION PLAN Above Normal BMI Follow-up D ietary management education, guidance, and counseling * * Sign off status: Completed Visit Status: C HK (Check Out) true * Provider: Halina Liu M.D. Date: 0 12/26/2023 Generated for Larisa ibarra/Jaleel/eTransmitting on: 01/31/2025 08:06 AM EDT History and Physical Notes * Examination Category Sub-Category Detail Notes Category Not es Abdomen Exam: LLQ tenderness with Rebound tenderness
--- OUTSIDE RECORDS SUMMARY | 2024-04-12 13:30 | XMS_ITS ---
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 Role Phone Joshua Scales Primary Care Provider Allergies Allergen (clinical drug ingredient) Drug/Non Drug Allergy documented on EMR Reaction Allergy Type Onset Date Status amoxicillin Amoxicillin hives Drug Allergy Act ezra Substance with sulfonamide structure and antibacterial mechanism of action (substance) Sulfa Antibiotics hives Drug Allergy Active REASON FOR VISIT right side pain, no rash no bruising, no injury dull pain, lasting 1 week Medications Medication SIG (Take, Route, Frequency, Duration) Notes Start Date End Date Status Calcium 600 MG 1 tablet with meals Orally once daily Active Fludrocortisone Acetate 0.1 MG TAKE 1/2 TABLET BY MOUTH TWICE DAILY FOR 30 DAYS for 30 Active Multivitamin Active Vitamin D (Cholecalciferol) 50 MCG (1999 UT) 1 capsule Orally Once a day Active Social History Tobacco Use: Social History Observation Description Date Details (start date - stop date) Never Smoker NA - NA Tobacco Use/Smoking Question Answer Notes Patient is a nonsmoker Problems Problem Type SNOMED Code ICD Code Onset Dates Problem Status W/U Status Risk Notes Problem Right upper quadrant abdominal pain (R10.11) Active confirmed Vital Signs Weight 181 lbs 04/12/2024 Height 66 in 04/12/2024 Blood pressure systolic 120 mm Hg 04/12/20 24 Blood pressure diastolic 70 mm Hg 024 BMI 29.21 kg/m2 04/12/2024 Encounters Encounter Location Date Provider Diagnosis [facility] [address] [place] [address] 04/12/2024 Joshua Scales Right upper quadrant abdominal pain R10.11 Assessments Encounter Date Diagnosis (ICD Code) Assessment Notes Treatment Notes Treatment Clinical Notes Section Notes 04/12/2024 Right upper quadrant abdominal pain (ICD-10 - R10.11) Plan Of Treatment Pending Test Test Name Order Date CT ABD and PELV W CON 04/12/2024 Progress Notes * Cherie REYNA ADOB:1970 (54 yo F)Acc No.[id number]:04/12/2024 Progress Note Patient: Cherie BARRAGAN Provider: Halina Scales ([facility])MD :1970 A ge:54 Y S ex:Female Date:04/12/2024 Address:[address] [place] [address] , [place], [id number] Check In:05:25 PM ESTCheck O ut:06:12 PM EST Subjective: * Chief Complaints: * 1 . Right side pain, no rash no bruising, no injury dull pain, lasting 1 week. * HPI: G eneral: R sided - rib pain - more dull feels like more of a side pain - liek with running -. * ROS: E ENT: hearing changes d enies. v isual changes d enies.?non-healing mouth sores d enies. s wollen glands or neck lumps d enies. h oarseness d enies. s ore throat d enies. d ifficulty swallowing d enies. n ose bleeds d enies. n jose congestion d enies. e ar ache d enies. e ar discharge?denies. r inging in ears d enies. l ight sensitivity d enies. e ye pain d enies. b lurring d enies. e ye irritation d enies. d ouble vision d enies.?vision loss d enies. G eneral/Constitutional: Sweats: D enies. F atigue d enies. S leep problems d enies. A norexia d enies. M alaise d enies. W eight loss d enies.?Fatigue or Weakness d enies. F ever or Chills d enies. C ardiovascular: Shortness of Breath w/lying flat d enies. L ightheadedness/dizziness d enies. C hest tightness/ heavy pressure d enies. S welling of legs, ankles, or feet d enies. W aking up with shortness of breath d enies. C hest pain denies. P alpitations d enies. W eight gain d enies. R espiratory: Chronic or frequent cough d enies. C oughing up blood?denies. D ifficulty breathing d enies. P roductive cough d enies. S noring?denies. S hortness of breath that awakens from sleep (PND) d enies. C hest pain d enies. S putum production d enies. W heezing d enies. M usculoskeletal: Joint pain d enies. J oint Fluid d enies. B ack pain d enies. K nee pain d enies. N alvin pain d enies. J oint Stiffness d enies. M uscle cramps d enies. W eakness of muscles d enies. A rthritis d enies. M uscle aches d enies. P ain in shoulder(s) d enies. S wollen joints d enies. * Active Problem List C21.0 Malignant neoplasm o f anus, unspecified Modified On:03/24/2023U Status:confirmed M85.80 Other specified diso rders of bone density and structure, unspecified site Modified On:02/18/2023U Status:confirmed Z78.0 Asymptomatic menopau gera state Modified On:02/18/2023U Status:confirmed K21.9 Gastro-esophageal re flux disease without esophagitis Modified On:03/20/2023U Status:confirmed Z00.00 Well adult Modified On:03/24/2023/U Status:confirmed N60.19 Diffuse cystic masto lisa of unspecified breast Modified On:05/01/2023U Status:confirmed M89.319 Clavicle enlargement Modified On:08/18/2023/U Status:confirmed K57.92 Diverticulitis Modified On:12/26/2023W/U Status:confirmed R10.11 Right upper quadrant abdominal pain Modified On:04/12/2024W/U Status:confirmed * Medical History: O ccult Blood in Stools, Peripheral Edema, Ganglion Cyst, Paresthesia, Near Syncope, Low back pain, Hypoglycemia, Migraines, Ovarian cyst, COVID-19, GERD (gastroesophageal reflux disease), Dysphagia, Neoplasm of soft tissue. * Surgical History: E GD- Esophageal Dilation and Bx 12/16/2018, Ovarian Cyst Removal . * Family History: F ather: 78 yrs, Parkinsons, diagnosed with Diabetes mellitus without mention of complication, type II or unspecified type, not stated as uncontrolled. M other: alive. S on(s): alive, asthma. D aughter(s): alive. 1 son(s) , 1 daughter(s) . . * Social History: T obacco Use: T obacco Use/Smoking P atient is a n onsmoker * Medications: T aking Calcium 600 MG Tablet 1 tablet with meals Orally once daily , Taking Fludrocortisone Acetate 0.1 MG Tablet TAKE 1/2 TABLET BY MOUTH TWICE DAILY FOR 30 DAYS , Taking Multivitamin , Taking Vitamin D (Cholecalciferol) 50 MCG (1999) Capsule 1 capsule Orally Once a day , Medication List reviewed and reconciled with the patient * Allergies: S ulfa Antibiotics: hives - Allergy, Amoxicillin: hives - Allergy. Objective: * Vitals: W t:181lbs, Ht: 66 in, BP:120/70mm Hg, BMI:29.21Index, Ht-cm: 167.64 cm, Wt-k.1 kg. * Examination: P hysical Exam: GENERAL: w ell developed, well nourished, in no acute distress. HEAD: n ormocephalic/atraumatic. EYES: p upils equal, round and reactive to light, conjunctivae and sclerae normal. EARS: n o deformity or lesion of external ear, canals and TM appear normal bilaterally, TM's intact, not inflamed with normal light reflex, hearing grossly normal to conversational speech. NOSE: n o deformity, discharge, inflammation, or lesions.? MOUTH: m ucous membranes moist, normal oropharynx and posterior pharynx without lesions or exudates, tongue normal, dentition normal. NECK: n alvin supple, no masses or palpable cervical nodes, trachea midline, thyroid without nodules, masses, tenderness, or enlargement. CHEST: n o chest wall deformity, no chest wall tenderness.? LUNGS: n ormal respiratory effort and clear to auscultation, no wheezes, rales, or rhonchi, good air exchange. CARDIO: r egular rate and rhythm, normal S1 and S2, nor murmur, rub, or gallop. PULSES: n ormal capillary refill. ABDOMEN: s oft, non-distended, non-tender, no masses tednerrs R sidedd ribs. MUSCULOSKELETAL: n o deformity or scoliosis noted, normal range of motion, joints normal, no erythema, edema, effusion, or ecchymosis. EXTREMITY: n o clubbing, cyanosis, edema, or deformity with normal ROM in both upper and lower bilateral extremities. NEUROLOGIC: g rossly normal. SKIN: n o rashes, ulcerations, or suspicious lesions. LYMPH NODES: n o cervical adenopathy, nodes normal. MENTAL STATUS: a lert and oriented x3, normal mood and affect. Assessment: * Assessment: 1. R ight upper quadrant abdominal pain - R10.11 (Primary) Plan: * Treatment: * Preventive Medicine: Screenings/Counseling: B UT ACTION PLAN Above Normal BMI Follow-up D ietary management education, guidance, and counseling * * Sign off status: Completed Visit Status: C HK (Check Out) true * Provider: Halina Scales ([facility])MD Date: 04/12/2024 Generated for Aprili fred/Jaleel/eTransmitting on: 01/31/2025 08:05 AM EDT History and Physical Notes * HPI (History of Present Illness) Category Sub-Category Detail Notes Category Not es General R sided - rib pain - more dull feels like more of a side pain - liek with running - Examination Category Sub-Category Detail Notes Category Not es Physical Exam GENERAL: well developed, well nourished, in no acute distress HEAD: normocephalic/atraum atic EYES: pupils equal, round and reactive to light, conjunctivae and sclerae normal EARS: no deformity or lesi on of external ear, canals and TM appear normal bilaterally, TM's intact, not inflamed with normal light reflex, hearing grossly normal to conversational speech NOSE: no deformity, discha rge, inflammation, or lesions MOUTH: mucous membranes gary st, normal oropharynx and posterior pharynx without lesions or exudates, tongue normal, dentition normal NECK: neck supple, no mass es or palpable cervical nodes, trachea midline, thyroid without nodules, masses, tenderness, or enlargement CHEST: no chest wall deform ity, no chest wall tenderness LUNGS: normal respiratory e ffort and clear to auscultation, no wheezes, rales, or rhonchi, good air exchange CARDIO: regular rate and rhy thm, normal S1 and S2, nor murmur, rub, or gallop PULSES: normal capillary ref ill ABDOMEN: soft, non-distended, non-tender, no masses tednerrs R sidedd ribs RECTAL: MUSCULOSKELETAL: no deformity or scol iosis noted, normal range of motion, joints normal, no erythema, edema, effusion, or ecchymosis EXTREMITY: no clubbing, cyanosi s, edema, or deformity with normal ROM in both upper and lower bilateral extremities NEUROLOGIC: grossly normal SKIN: no rashes, ulceratio ns, or suspicious lesions LYMPH NODES: no cervical adenopat hy, nodes normal MENTAL STATUS: alert and oriented x 3, normal mood and affect
--- OUTSIDE RECORDS SUMMARY | 2024-05-31 13:00 | XMS_ITS ---
Author Organization [facility] in [place] Address [address] [place] [address] Care Team Providers Care Mobile Sales Technician Name Role Phone Joshua Scales Primary Care [...] W/U Status Risk Notes Problem Lumbar radiculopathy ([id number]) Lumbar radiculopathy (M54.16) Active confirmed Vital Signs Weight 181 lbs 05/31/2024 Height 66 in 05/31/2024 Blood pressure systolic 116 mm Hg 05/31/20 24 Blood pressure diastolic 68 mm Hg 024 BMI 29.21 kg/m2 05/31/2024 Encounters Encounter Location Date Provider Diagnosis [facility] Medicine [address] [facility] [place] [address] 05/31/2024 Joshua Scales Lumbar radiculopathy M54.16 Assessments Encounter Date Diagnosis (ICD Code) Assessment Notes Treatment Notes Treatment Clinical Notes Section Notes 05/31/2024 Lumbar radiculopathy (ICD-10 - M54.16) PPW completed Plan Of Treatment Treatment Notes Assessment Notes Lumbar radiculopathy PPW completed Progress Notes * Cherie REYNA ADOB:1970 (54 yo F)Acc No.[id number]:05/31/2024 Progress Note Patient: Cherie BARRAGAN Provider: Halina Scales ([facility])MD :1970 A ge:54 Y S ex:Female Date:05/31/2024 Address:[address] [place], [place] [id number] Check In:04:57 PM ESTCheck O ut:05:57 PM [...] (Check Out) true * Provider: Halina Scales ([facility])MD Date: 07/31/2023 Generated for Printi ng/Faxing/eTransmitting on: 0 01/31/2025 08:06 AM EDT History and Physical [...]
--- OUTSIDE RECORDS SUMMARY | 2025-01-31 08:06 | XMS_ITS ---
Author Organization [facility] Address [address] [place] [address] Care Team Providers Care Patient Service Specialist Name Role Phone Valente Scales MD Primary Care Provider + Paco Vivas MD Unavailable [phone] Josette Varma DELIVERY PERSON.PERSONNEL MONITOR Unavailable [phone] Toribio Mccall MD Unavailable Active Problems Problem [...]
--- OUTSIDE RECORDS SUMMARY | 2025-01-31 08:06 | XMS_ITS | Clinical Summary ---
Author Organization The [facility] Address [address] [place] [address] Care Team Providers Care Composition Floor Layer Name Role Phone Unavailable Primary Care Provider [...]
--- OUTSIDE RECORDS SUMMARY | 2025-01-31 08:06 | XMS_ITS | Encounter Summary ---
Author Organization [facility] Address [address] [place] [address] Care Team Providers Care Hotel Reservation Agent Name Role Phone Valente Scales MD Primary Care Provider + Paco Vivas MD Unavailable [phone] Josette Varma ACIDIZER WATER WELL.MILL HAND Unavailable [phone] Leandra Whitehead RN Unavailable [phone] Toribio Mccall MD Unavailable Source Comments In the event this information is protected by the Federal Confidentiality of Alcohol and Drug AbusePatient Records regulations: The Federal rules restrict any use of the information to criminally investigate or prosecute any alcohol or drug abuse patient.[facility] Encounter Details Date Type Department Care Team (Late st Contact Info) Description 01/19/2023 Get Medical Advice Colorectal Surgery [address] [place], [place] [id number] [place] [address] [place], [place] [phone] Questions I forgot to ask at visit [...] is lower risk 4 01/16/2023 Data from: https://www.neighborhoodatlas.medicine.[facility]/. Last address used for calculation [address] 01/16/2023 Comments No Sex [...] Description 04/22/2025 1:45 PM EDT Office Visit [facility] [address] [address] 6 month follow up and lab 04/22/2025 2:00 PM EDT Visit (SP) Office Hematology/Oncology [address] [facility] [place] [address] Paco Vivas MD [address] [place] [address] 6 month follow up and lab 06/10/2025 3:00 PM EST Office Visit Colorectal Surgery [address] [place] [address] Jeanette Wang, ACIDIZER WATER WELL.MILL HAND [address] [place], [place] [id number] 6 months follow up per [address]. Collins 10/27/2025 2:15 PM EDT Appointment Radiology Pet CT [address] [facility] [facility] [place] [address] CT chest/abdom w/IVC 11/03/2025 10:20 AM EDT Appointment [facility] [place] [address] [place] [address] MRI Rectum W/ & W/O IVC 11/11/2025 2:30 PM EDT Office Visit Radiation Oncology [address] [place] [address] Toribio Mccall MD [address] [place] [address] 1 year follow up documented as of this encounter Visit Diagnoses Not on filedocumented in this encounter Care Teams Hotel Reservation Agent Relationship Specialty Start Date End Date Valente Scales MD PCP - General Family Medicine 08/17/13 Paco Vivas MD [address] [place] [address] [place] [address] Physician Hematology/Oncology 05/23/22 Josette Varma, ABIGAIL.MILL HAND [address] [place] [address] [place] [address] Nurse Practitioner Hematology/Oncology 05/23/22 Leandra Whitehead, BLAIR [address] [place] [address] Specialty Bi Consultant Hematology/Oncology 05/23/22 05/14/23 Toribio Mccall MD [address] [place] [address] [place] [address] Physician Radiation Oncology 05/23/22 documented as of this encounter
--- OUTSIDE RECORDS SUMMARY | 2025-01-31 08:06 | XMS_ITS | Patient Health Record ---
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 No. of containers..01 ThinPrep Vial [address] [place] [address] L-Low Normal,H-High Normal,LL-Alert Low,HH-Alert High Clinician Provided Cytology Information <-Panic Low,>-Panic High,A-Abnormal,AA-Criti nettie Abnormal Performed at: Makenna Diop MD, Age Algo ACOG Aisha... 30-65 01 01 =G [facility] TESTS RESULT FLAG UNITS REF RANGE LAB Source.............Cervi x;Endocervix FLAG LEGEND: IGP, Aptima HPV, rfx 16/18,45 Note . Note: Note 02 NEGATIVE FOR INTRAEPITHELIAL LESION OR MALIGNANCY. Test Methodology: Note 02 detection of premalignant and malignant conditions of the Performed by: 02 L-Low Normal,H-High Normal,LL-Alert Low,HH-Alert High This liquid based ThinPrep(R) pap test was screened with HPV Genotype Reflex Note 02 [address] [place] [address] uterine cervix. It is not a diagnostic procedure and Satisfactory for evaluation. Endocervical component may not be cancer. Both false-positive and false-negative reports do <-Panic Low,>-Panic High,A-Abnormal,AA-Criti nettie Abnormal DIAGNOSIS: 02 CELLULAR CHANGES ASSOCIATED WITH ATROPHY ARE PRESENT. Performed at: distinguished in cases of atrophy. Criteria not met, HPV Genotype not performed. Makenna Diop MD, Jannie Garsia, Field Servicer ([facility]) occur. the use of an image guided system. . 02 Specimen adequacy: 02 The Pap smear is a screening test designed to aid in the should not be used as the sole means of detecting cervical 02 [facility]: TESTS RESULT FLAG UNITS REF RANGE LAB HPV Aptima Negative Negative Performed at: =G - [facility] Pants Maker: Makenna Diop MD, Phone: [phone] This nucleic acid amplification test detects fourteen high- Performed at: [facility] Pants Maker: Makenna Diop MD, Phone: [phone] risk HPV types (16,18,31,33,35,39,45,51 ,52,56,58,59,66,68) without differentiation. [address] [place], [place] [id number] [address] [place] [id number] Performing Lab: see note - [facility] LB MM tomosynthesis screening B I Reviewed date:10/22/2024 12:54:22 PM Interpretation: Performing Lab: Notes/Report: Source Facility: [place] [address] Mammography Report Signed Patient: KIRT REYNA MR#: [id number] : 1970 Acct:[id number] Age/Sex: 54 / F ADM Date: 10/22/24 Loc: MAMMO Attending Dr: Pérez Hubbard D.O. Ordering Physician: Pérez Hubbard D.O. Results: Date of Service: 10/22/24 Follow Up: Procedure(s): MM tomosynthesis screening BI Accession Number(s): [id number] cc: Pérez Hubbard D.O.; Valente Scales M.D. Patient Name: KIRT REYNA MR#: [id number] : 1970 Exam Date: 10/22/2024 Ordering Doctor: [...] Treatments None Family Cancers None LOCATION: The [facility] BREAST COMPOSITION: The breasts are extremely [...] Signed By: 10/22/24 1226 DD/ 1225 TD/TT: Front Office Java Developer: [place] [address] Mammography Report Signed Patient: LINA REYNA MR#: [id number] : 1970 Acct:[id number] Age/Sex: 54 / F ADM Date: 10/22/24 Loc: MAMMO Attending Dr: Pérez Hubbard D.O. Ordering Physician: Pérez Hubbard D.O. Results: Date of Service: 10/22/24 Follow Up: Procedure(s): MM tomosynthesis screening BI Accession Number(s): [id number] cc: Pérez Hubbard D.O. ; Valente Scales M.D. Patient Name: KIRT REYNA MR#: [id number] : 1970 Exam Date: 10/22/2024 Ordering Doctor: [...] Breast Canc er Risk 9.10% Personal Breast Canc er No Personal Ovarian Cancer No Treatments None Family Cancers None LOCATION: The [facility] BREAST COMPOSITION: The breasts are [...] Signed By: 10/22/24 1226 DD/ 1225 TD/TT: Front Office Java Developer: Reason For Referral No Information Medications Medication [...] Problem Status W/U Status Risk Notes Problem 015157913 Gastro-esophagea l reflux disease without esophagitis (K21.9) Active confirmed Problem 853352436 Malignant neoplasm of anus, unspecified (C21.0) Active confirmed Problem 904999771 Other specified disorders of bone density and structure, unspecified site (M85.80) Active confirmed Problem 932657846 Diffuse cystic mastopathy of unspecified breast (N60.19) Active confirmed Problem 734651649 Asymptomatic menopausal state (Z78.0) Active confirmed Problem Lumbar radiculopathy (002264919) Lumbar radiculopathy (M54.16) Active confirmed Problem Well adult (203917575) Well adult (Z00.00) Active confirmed Problem Diverticulitis (75495542) Diverticulitis (K57.92) Active confirmed Problem Right upper quadrant pain (366343458) Right upper quadrant abdominal pain (R10.11) Active confirmed Problem Clavicle enlargement (M89.319) Active confirmed Problem Malignant tumor of anal canal (disorder) (843403336) Anal cancer (C21.0) Active confirmed Vital Signs Blood pressure diastolic 68 mm Hg 05/31/2024 Height 66 in 05/31/2024 Blood pressure systolic 116 mm Hg 05/31/2024 Weight 181 lbs 05/31/2024 BMI 29.21 kg/m2 05/31/2024 Encounters Encounter Location Date Provider Diagnosis [facility] [address] [place] [address] 05/31/2024 Joshua Hoy Lumbar radiculopathy M54.16 [facility] [address] [place] [address] 04/12/2024 Joshua Hoy Right upper quadrant abdominal [...] Date [employer] [place] [employer] [address] [place] [address] [id number] Cherie Reyna Self - patient is the insured 3 Medical (General) History Medical History History ICD Code Occult Blood in Stools Peripheral Edema Ganglion Cyst Paresthesia Near Syncope Low back pain M54.5 Hypoglycemia E16.2 Migraines G43.909 Ovarian cyst N83.209 COVID-19 U07.1 GERD (gastroesophageal reflux disease) K 21.9 Dysphagia R13.10 Neoplasm of soft tissue D49.2 Surgical History Surgery Date(Month/Year) EGD- Esophageal Dilation and Bx 12/16/2018 Ovarian Cyst Removal
== END 2025-01-31 08:04 | disposition home or self-care (01) ==
LOC: RAD 08:04
PROVIDERS: PCP Family Medicine; Visit Provider Obstetrics & Gynecology
DX: Z78.0 Asymptomatic menopausal state (principal); M85.80 Other specified disorders of bone density and structure, unspecified site
CPT/HCPCS: 77080

== ENCOUNTER 2025-07-13 07:04 | Outpatient (OUT) | payer OTHER, SELFPAY ==
--- OUTSIDE RECORDS SUMMARY | 2025-07-11 11:30 | XMS_ITS ---
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 Name Role Phone Joshua Scales Primary Care Provider [phone] Allergies Allergen (clinical drug ingredient) Drug/Non Drug Allergy documented on EMR Reaction Allergy Type Onset Date Status amoxicillin Amoxicillin hives Drug Allergy ActiveSubstance with sulfonamide structure and antibacterial mechanism of action (substance)Sulfa AntibioticshivesDrug AllergyActive REASON FOR VISIT pain in upper right side, shes not sure if its from her hernia or moving stuff around her house, pain started around 4 days ago, cramping in abdominal area Medications Medication SIG (Take, Route, Frequency, Duration) Notes Start Date End Date Status Nystatin 428510 UNIT/ML 5 ml Mouth/Throat Four t imes a day; Duration: 14 days 5ActiveVitamin D (Cholecalciferol) 50 MCG (1999)1 capsule Orally Once a dayActiveFludrocortisone Acetate 0.1 MGTAKE 1/2 TABLET BY MOUTH TWICE DAILY FOR 30 DAYS; Duration: 30ActiveMultivitaminActiveNystatin 283286 UNIT/ML5 ml Mouth/Throat Four times a day; Duration: 14 days5ActiveCalcium 600 MG1 tablet with meals Orally once dailyActive Social History Tobacco Use: Social History Observation Description Date Details (start date - stop date) Never Smoker NA - NA Tobacco Use/Smoking Question Answer Notes Patient is a nonsmoker AUDIT-C (Standard) Question Answer Notes Did you have a drink containing alcohol in the p ast year? No Alxlps3MegdbkbfiumsxhDewkagis Vital Signs Blood pressure systolic 128 mm Hg 07/11/20 25 Blood pressure diastolic 68 mm Hg 025 Height 66 in 07/11/2025 Weight 178 lbs 07/11/2025 BMI 28.73 kg/m2 07/11/2025 Encounters Encounter Location Date Provider Diagnosis [facility] [address] [place] [address] 07/11/2025 Joshua Scales Right upper quadrant abdominal pain R10.11 Assessments Encounter Date Diagnosis (ICD Code) Assessment Notes Treatment Notes Treatment Clinical Notes Section Notes 07/11/2025 Right upper quadrant abdominal p ain (ICD-10 - R10.11) Plan Of Treatment Medication Medication Name Sig Start Date Stop Date Notes Nystatin 017184 UNIT/ML 5 ml Mouth/Throa t Four times a day; Duration: 14 days 07/11/2025 Pending Test Test Name Order Date US ABD 07/11/2025 Progress Notes * Gayathri REYNAdy ADOB:1970 (55 yo F)Acc No.[id number]:07/11/2025 UNLOCKED PROGRESS NOTE Progress Note Patient: Cherie BARRAGAN :?Valente Scales ([facility]), MDDOB:1970???Age: 55 Y???Sex:FemaleDate:07/11/2025Phone:[phone]:[address] [place] [id number] In:04:34 PM ESTCheck Out:05:01 PM EST Subjective: * Chief Complaints: * 1 . Pain in upper right side, shes not sure if its from her hernia or moving stuff around her house, pain started around 4 days ago, cramping in abdominal area. * HPI: ???General:? pain in R upper quad - maybe strained with moving stuff -. * Medical History: O ccult Blood in [...] 1 daughter(s) . . * Social History: ???Tobacco Use:?Tobacco Use/Smoking?Patient is a?nonsmoker ???Drug/Alcohol:?AUDIT-C (Standard)?Did you have a drink containing alcohol in the past year??No ?Points?0 ?Interpretation?Negative * Medications: T aking Calcium 600 MG Tablet 1 tablet with meals Orally once daily , Taking Fludrocortisone Acetate 0.1 MG Tablet TAKE 1/2 TABLET BY MOUTH TWICE DAILY FOR 30 DAYS , Taking Multivitamin , Taking Nystatin 597209 UNIT/ML Suspension 5 ml Mouth/Throat Four times a day , Taking Vitamin D (Cholecalciferol) 50 MCG (2000 UT) Capsule 1 capsule Orally Once a day , Medication List reviewed and reconciled with the patient * Allergies: S ulfa Antibiotics: hives - Allergy, Amoxicillin: hives - Allergy. Objective: * Vitals: W t:178lbs, Ht: 66 in, BP:128/68mm Hg, BMI:28.73Index, Ht-cm: 167.64 cm, Wt-k.74 kg. * Examination: ???Abdomen Exam:: ???RUQ tendenrss - neg priti. Assessment: * Assessment: 1.?Right upper quadrant abdominal pain - R10.11 (Primary)??? Plan: * Treatment: Start Nystatin Suspension, 201267 UNIT/ML, 5 ml, Mouth/Throat, Four times a day, 14 days, 280 ML. ?Imaging: US ABD* complete * Preventive Medicine: ??Screenings/Counseling:?BMI ACTION PLAN?Above Normal BMI Follow-up?Dietary management education, guidance, and counseling * * Electronic signature of Joshua Scales MD, [id number] on 07/13/2025 at 07:06 AM EST Sign off status: PendingVisit Status:?CHK (Check Out) * Provider: Halina Scales ([facility])MD Date: 1 Generated for Printing/Faxing/eTransmitting on:?07/13/2025 07:06 AM EST History and Physical Notes * HPI (History of Present Illness) CategorySub-CategoryDetailNotesCategory NotesGeneralpain in R upper quad - maybe strained with moving stuff - Examination CategorySub-CategoryDetailNotesCategory NotesAbdomen Exam:RUQ tendenrss - neg marcos
--- OUTSIDE RECORDS SUMMARY | 2025-07-13 07:07 | XMS_ITS | Clinical Summary ---
Author Organization [facility] Address [address] [place] [address] Care Team Providers Care Clinical Care Coordinator Name Role Phone Unavailable Primary Care Provider Unavailabl e Social History Tobacco UseTypesPacks/DayYears UsedDateSmoking Tobacco: Never Assessed CommentsUnknownSex and Gender InformationValueDate RecordedSex Assigned at Not on fileLegal IggEbecwz53/30/2022 12:18 AM EDTGender IdentityNot on file Sexual OrientationNot on file Last Filed Vital Signs Vital SignReadingTime TakenCommentsBlood Nfqdegsd575/6401 2:56 PM EST Umilr925107/22/2019 2:51 PM ESTTemperature--Respiratory Rate--Oxygen Qzmfirihfn54% 07/22/2019 2:51 PM ESTInhaled Oxygen Concentration--Pohzrd14.9 kg (154 lb) 07/22/2019 2:50 PM MVAZtvbuu381.6 cm (5' 6 )07/22/2019 2:47 PM ESTBody Mass Index24.8607/22/2019 2:47 PM EST Plan of Treatment Not on file
--- OUTSIDE RECORDS SUMMARY | 2025-07-13 07:07 | XMS_ITS | Patient Health Record ---
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 TESTS RESULT FLAG UNITS REF RANGE LAB Clinician Provided Cytology Information Source.............Cervix;Endocer vix No. of containers..01 ThinPrep Vial Age Algo ACOG Aisha... 30-65 FLAG LEGEND: L-Low Normal,H-High Normal,LL-Alert Low,HH-Alert High <-Panic Low,>-Panic High,A-Abnormal,AA-Critical Abnormal Performed at: 01 =[facility] [place] [address] Makenna Diop MD, IGP, Aptima HPV, rfx 16/18,45 Note . TESTS RESULT FLAG UNITS REF RANGE LAB DIAGNOSIS: 02 NEGATIVE FOR INTRAEPITHELIAL LESION OR MALIGNANCY. CELLULAR CHANGES ASSOCIATED WITH ATROPHY ARE PRESENT. Specimen adequacy: 02 Satisfactory for evaluation. Endocervical component may not be distinguished in cases of atrophy. Performed by: Sandoval Garsia, Laboratory Mechanic Helper (ASC) . 02 Note: Note 02 The Pap smear is a screening test designed to aid in the detection of premalignant and malignant conditions of the uterine cervix. It is not a diagnostic procedure and should not be used as the sole means of detecting cervical cancer. Both false-positive and false-negative reports do occur. Test Methodology: Note 02 This liquid based ThinPrep(R) pap test was screened with the use of an image guided system. HPV Genotype Reflex Note 02 Criteria not met, HPV Genotype not performed. FLAG LEGEND: L-Low Normal,H-High Normal,LL-Alert Low,HH-Alert High <-Panic Low,>-Panic High,A-Abnormal,AA-Critical Abnormal Performed at: [address] [address] Makenna Diop MD, HPV Aptima Negative Negative This nucleic acid amplification test detects fourteen high- risk HPV types (16,18,31,33,35,39,45,51,52,56,58 ,59,66,68) without differentiation. Performed at: = - [facility] [address] [id number] Building Supervisor: Makenna Diop MD, Phone: [phone] Performed at: - [facility] [id number] Building Supervisor: Makenna Diop MD, Phone: [phone] Performing Lab: see note - [facility] LBMM tomosynthesis screening BI Reviewed date:10/22/2024 12:54:22 PM Interpretation: Performing Lab: Notes/Report: Source Facility: [place] [address] Mammography Report Signed Patient: KIRT REYNA MR#: [id number] : 1970 Acct:[id number] Age/Sex: 54 / F ADM Date: 10/22/24 Loc: MAMMO Attending Dr: Pérez Hubbard D.O. Ordering Physician: Pérez Hubbard D.O. Results: Date of Service: 10/22/24 Follow Up: Procedure(s): MM tomosynthesis screening BI Accession Number(s): [id number] cc: Pérez Hubbard D.O.; Valente Scales M.D. Patient Name: KIRT REYNA MR#: [id number] : 1970 Exam Date: 10/22/2024 Ordering Doctor: [...] Treatments None Family Cancers None LOCATION: [facility] BREAST COMPOSITION: The breasts are extremely [...] Signed By: 10/22/24 1226 DD/ 1225 TD/TT: Director Of Clinical Education: Reason For Referral No Information Medications Medication SIG (Take, Route, Frequency, Duration) Notes Start Date End Date Status Nystatin 759301 UNIT/ML 5 ml Mouth/Throat Four t imes a day; Duration: 14 days 5ActiveVitamin D (Cholecalciferol) 50 MCG (1999 UT)1 capsule Orally Once a dayActiveFludrocortisone Acetate 0.1 MGTAKE 1/2 TABLET BY MOUTH TWICE DAILY FOR 30 DAYS; Duration: 30ActiveMultivitaminActiveCalcium 600 MG1 tablet with meals Orally once dailyActiveNystatin 810250 UNIT/ML5 ml Mouth/Throat Four times a day; Duration: 14 days5Active Social History Tobacco Use: Social History Observation Description Date Details (start date - stop date) Never Smoker NA - NA Tobacco Use/Smoking Question Answer Notes Patient is a nonsmoker Alcohol Screen (Audit-C) Question Answer Notes Did you have a drink containing alcohol in the p ast year? No Whbzvq1WyzzaekelvenuzIqooycudDGIWP-T (Standard) Question Answer Notes Did you have a drink containing alcohol in the p ast year? No Thmgcf2TppgrwoullzooaJcjytxqn Problems Problem Type SNOMED Code ICD Code Onset Dates Problem Status W/U Status Risk Notes Problem Gastro-esophageal re flux disease without esophagitis (018710136) Gastro-esophageal reflux disease without esophagitis (K21.9) ActiveconfirmedProblemMalignant tumor of anus (725333501)Malignant neoplasm of anus, unspecified (C21.0)ActiveconfirmedProblemDisorder of bone (42236940)Other specified disorders of bone density and structure, unspecified site (M85.80) ActiveconfirmedProblemFibrocystic breast changes (74904424)Diffuse cystic mastopathy of unspecified breast (N60.19)ActiveconfirmedProblemPostmenopausal state (17850435)Asymptomatic menopausal state (Z78.0)ActiveconfirmedProblem Lumbar radiculopathy (481796809)Lumbar radiculopathy (M54.16)Activeconfirmed ProblemWell adult (377909393)Well adult (Z00.00)ActiveconfirmedProblem Diverticulitis (12359139)Diverticulitis (K57.92)ActiveconfirmedProblemThrush (14009461)Thrush (B37.0)ActiveconfirmedProblemRight upper quadrant pain (146277660)Right upper quadrant abdominal pain (R10.11)ActiveconfirmedProblem Clavicle enlargement (M89.319)ActiveconfirmedProblemMalignant tumor of anus (419329047)Anal cancer (C21.0)Activeconfirmed Vital Signs Blood pressure diastolic 68 mm Hg 07/11/2025 Tbssan78 in07/11/2025lood pressure zhzzimer029 mm Hg07/11/20250893Ycgoyf928 lbs 07/11/2025BMI28.73 kg/m207/11/2025 Encounters Encounter Location Date Provider Diagnosis [facility] [address] [place] [address] 07/11/2025 Joshua Hoy Right upper quadrant abdominal pain R10.11 [facility] [address] [place] [address] 03/21/2025 Joshua Hoy Thrush B37.0 and Wel l adult Z00.00 Assessments Encounter Date Diagnosis (ICD Code) Assessment Notes Treatment Notes Treatment Clinical Notes Section Notes 03/21/2025 Thrush (ICD-10 - B37.0) 03/21/2025Well adult (ICD-10 - Z00.00)07/11/2025Right upper quadrant abdominal pain (ICD-10 - R10.11) Plan Of Treatment Pending Test Test Name Order Date CMP (COMPLETE METABOLIC PANEL) 3 HEMOGLOBIN A1C (GLYCO) 03/24/2023 HEMOGLOBIN A1C (GLYCO) 03/21/2025 IRON, TOTAL 03/21/2025 IRON, TOTAL 03/24/2023 LIPID PANEL (CHOL/TRIG/HDL/LDL) 03/24/20 23 LIPID PANEL (CHOL/TRIG/HDL/LDL) 03/21/20 25 CBC WITH DIFF (EXP 05/2025) 03/24/2023 VITAMIN D, 25 LEVEL (TOTAL) 03/24/2023 VITAMIN D, 25 LEVEL (TOTAL) 03/21/2025 XR Clavicle LT (2 views) * 08/18/2023 XR Clavicle RT (2 views) * 08/18/2023 MAMM Mammograms CAD 03/24/2023 Insulin Level 03/24/2023 Insulin Level 03/21/2025 STOOL OCCULT BLOOD 03/21/2025 STOOL OCCULT BLOOD 03/24/2023 VIT B12 AND FOLATE 03/21/2025 CT ABD and PELV W CON 04/12/2024 US ABD 07/11/2025 XR HIPS CARL 3_4V WO PELVIS 08/18/2023 XR LSPINE 2_3 VIEWS 08/18/2023 XR WRIST LT MIN 3 V 08/18/2023 XR WRIST RT MIN 3 V 08/18/2023 THYROID PANEL (T4/TSH/FREE T3) 3 THYROID PANEL (T4/TSH/FREE T3) 5 MG MAMM DIAGNOSTIC 3D CARL CAD 04/30/2023 CMP (COMP MET SNOW) w/eGFR CKD-EPI 2024 CBC WITH DIFF 03/21/2025 Insurance Providers Payer Name Payer Address Payer Phone Subscriber Number Group Number Insured Name Patient Relationship to Insured Coverage Start Date Coverage End Date [employer] [place] [employer] [address] [place] [address] [id number] Michelle, CindySelf - patient is the [id number] 2022 Medical (General) History Medical History History ICD Code Occult Blood in Stools Peripheral EdemaGanglion CystParesthesiaNear SyncopeLow back painM54.5 VbztinmbceseL31.6OaghwiabnE55.909Ovarian cystN83.209COVID-19U07.1GERD (gastroesophageal reflux disease)K21.2FaiwgxbfeQ31.10Neoplasm of soft tissue D49.2Surgical History Surgery Date(Month/Year) EGD- Esophageal Dilation and Bx 12/16/2018 Ovarian Cyst Removal
--- OUTSIDE RECORDS SUMMARY | 2025-07-13 07:07 | XMS_ITS | CCD ---
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 conditions (3 sources)Anorectal disorder; Translations: [Other specified diseases of anus and rectum]Onset: 30-83-9173UydmljyzYntfga of rectum and anus (20 sources)Malignant tumor of anus; Translations: [Malignant neoplasm of anus, unspecified]Onset: 69-07-1868ZbeswpwLfjdoz; other and unspecified primary (5 sources)Malignant tumor of pelvis; Translations: [Malignant neoplasm of pelvis]84-91-7568NllqnrvDxeywe; other and unspecified primary (2 sources)Malignant neoplasm of pelvis; Translations: [Malignant neoplasm of pelvis (HCC)]Onset: 93-04-1842CbnffjzEbcrezw dysrhythmias (20 sources)Postural orthostatic tachycardia syndrome ; Translations: [POTS (postural orthostatic tachycardia syndrome)]Onset: 17-18-5286EbsaqdcTejwnkhyvj associated with dizziness or vertigo (20 sources)Vertigo; Translations: [Dizziness and giddiness]84-30-6630Vlqbqcje Esophageal disorders (2 sources)Gastroesophageal reflux disease; Translations: [Gastro-esophageal reflux disease without esophagitis]Onset: 618173-31-3791Hmlpdmt Gastrointestinal hemorrhage (6 sources)Hemorrhage of rectum and anus; Translations: [Hemorrhage of anus and rectum]Onset: 71-08-8123PfrmatwbSvnjjygjtz disorders (1 source)Menopausal symptom; Translations: [Menopausal and female climacteric states]66-95-1644WqkuymqMztmm aftercare (4 sources)History of malignant neoplasm of anus; Translations: [Encounter for follow-up examination after completed treatment for malignant neoplasm]Episodic Other circulatory disease (1 source)Orthostatic ocgjhjsgigp05-22-7226JurxhhwwGvjol gastrointestinal disorders (1 source)Tnjohyfgx01-04-1674IuambwzbCujeq gastrointestinal disorders (1 source)Occult blood in zcpwom11-43-4028KpxdayowYyxup gastrointestinal disorders (1 source)Rectal kkrl80-60-0522FcnisyxwDvopx gastrointestinal disorders (1 source)Diarrhea; Translations: [Diarrhea, unspecified]98-13-1534HdvgsgwwXwupl inflammatory condition of skin (1 source)Pruritus ani; Translations: [Pruritus ani]57-03-9366GsojxwnjItgrz nervous system disorders (1 source)Other chronic pain; Translations: [OTHER CHRONIC PAIN]Onset: 29-93-5659KyvdycjVdjte nervous system disorders (1 source)Sqtvlaoyxpw88-88-4443WmdsxmjyUcksv nutritional; endocrine; and metabolic disorders (1 source)Overweight in adulthood with body mass index of 25 or more but less than 4255-34-0824FbxvxtyiPcwyn screening for suspected conditions (not mental disorders or infectious disease) (4 sources)Patient encounter status; Translations: [Encounter for screening for osteoporosis]05-22-2893UauptyyuSzyxfip cyst (1 source)Cyst of -46-0346WbnpqvrtDoisyqca codes; unclassified (1 source)Peripheral yfnlu21-84-0500XpvagxuxIcrniftg codes; unclassified (2 sources)Postmenopausal state; Translations: [Asymptomatic menopausal state] 06-98-9665RiqkpdpoVfwzpmzieif; intervertebral disc disorders; other back problems (1 source)Low back wxee59-33-9397IfnnfsmfBaixmmbbnymt (1 source)OPENED IN ERRORUnclassified (1 source)POSTURAL ORTHOSTATIC TACHY SYN POTS; Translations: [POSTURAL ORTHOSTATIC TACHY SYN POTS]Onset: 32-74-6848Guuhwdoyuapr (1 source)LOW BACK PAIN, UNSPECIFIED; Translations: [LOW BACK PAIN, UNSPECIFIED] Onset: 03-12-9016Djsyvmwrmzko (1 source)CONTACT W/AND (SUSP) EXPOS COVID-19; Translations: [CONTACT W/AND (SUSP) EXPOS COVID-19]Onset: 10-38-8161Ajknnmfspjmq (1 source)POTS (postural orthostatic tachycardia syndrome); Translations: [POTS (postural orthostatic tachycardia syndrome)]Onset: 05-27-2022 Past or Other Problems Problem ClassificationProblemDateDocumented DateEpisodic/ChronicCancer of rectum and anus (1 source)Personal history of other malignant neoplasm of rectum, rectosigmoid junction, and anus; Translations: [Encounter for follow-up surveillance of anal cancer]Onset: 37-16-5934NfehgdbdOmtcj aftercare (1 source)Encounter for follow-up examination after completed treatment for malignant neoplasm; Translations:[Encounter for follow-up surveillance of anal cancer]Onset: 72-88-6027RukfbmjwVhmvnxdc codes; unclassified (4 sources)Localized edema; Translations: [LOCALIZED EDEMA]Onset: 12-28-2021 Episodic Results Test NameValueInterpretationReference RangeFacilityCBC W Auto Differential panel (Bld)on 75-18-3864Qxvjttnco (Bld) [#/Vol]10*3/uLNormal<0.11CAccess [facility] on above:Order Comment: Specimen Type: BLOOD SPECIMENOrdering Facility: [facility] Address:[address] [place], [place] [address]Performed By: #### 93799-6 ####[facility] LABCLIA [id number] [place], [place] [address]Kzwlmenfq/100 WBC (Bld)0.4 % NormalMagruder Hospital on above:Order Comment: Specimen Type: BLOOD SPECIMENOrdering Facility: [facility] Address:[address] [place], [place] [address]Performed By: #### 51798-8 ####[facility] LABCLIA [id number] [place] [address] Differential cell count method Nom (Bld)AutoNormalCBarnesville Hospital Comment on above:Order Comment: Specimen Type: BLOOD SPECIMENOrdering Facility: [facility] Address:[address] [place] [address] Performed By: #### 95020-5 ####[facility] LABCLIA [id number] [place], [place] [address]Jrsgxuhtgdn (Bld) [#/Vol]0.09 10*3/uLNormal<0.46[facility] on above:Order Comment: Specimen Type: BLOOD SPECIMENOrdering Facility: [facility] Address:[address] [place], [place] [address]Performed By: #### 74047-9 ####[facility] LABCLIA [id number] [place], [place] [address]Vaunsmwgzkk/100 WBC (Bld)1.8 %NormalMagruder Hospital on above:Order Comment: Specimen Type: BLOOD SPECIMENOrdering Facility: [facility] Address:[address] [place], [place] [address]Performed By: #### 35173-9 ####[facility] LABCLIA [id number] [place], [place] [address]Oiittuxtxws distribution width (RBC) [Ratio]12.9 %Jxzwmt68.5-15.0[facility] on above: Order Comment: Specimen Type: BLOOD SPECIMENOrdering Facility: [facility] Address:[address] [place], [place] [address]Performed By: #### 12202- 8 ####[facility] LABCLIA [id number] [place], [place] [address]Smqjlbjzen (Bld) [Volume fraction]40.4 %Wxkgep47.0-46.0 [facility] on above:Order Comment: Specimen Type: BLOOD SPECIMENOrdering Facility: [facility] Address:[address] [place], [place] [address]Performed By: #### 20794-0 ####[facility] LABCLIA [id number] [place], [place] [address]Ksqhmehwgt (Bld) [Mass/Vol]13.8 g/xOUnrnjb12.5-15.5CAccess [facility] [place] on above: Order Comment: Specimen Type: BLOOD SPECIMENOrdering Facility: [facility] Address:[address] [place], [place] [address]Performed By: #### 61600- 8 ####[facility] LABCLIA [id number] [place], [place] [address]Dgetrlzi granulocytes (Bld) [#/Vol]10*3/uLNormal<0.10 [facility] on above:Order Comment: Specimen Type: BLOOD SPECIMENOrdering Facility: [facility] Address:[address] [place], [place] [address]Performed By: #### 33809-7 ####[facility] LABIA [id number] [place], [place] [address]Ilyulpdo granulocytes/100 WBC (Bld)0.4 %NormalMagruder Hospital on above: Order Comment: Specimen Type: BLOOD SPECIMENOrdering Facility: [facility] Address:[address] [place], [place] [address]Performed By: #### 56334- 8 ####[facility] LABIA [id number] [place], [place] [address]Sqkitihgpzk (Bld) [#/Vol]1.34 10*3/uLNormal1.00-4.00 [facility] on above:Order Comment: Specimen Type: BLOOD SPECIMENOrdering Facility: [facility] Address:[address] [place], [place] [address]Performed By: #### 14382-3 ####[facility] LABIA [id number] [place], [place] [address]Vtixolavujd/100 WBC (Bld)26.3 %NormalMagruder Hospital on above:Order Comment: Specimen Type: BLOOD SPECIMENOrdering Facility: [facility] Address:[address] [place], [place] [address]Performed By: #### 32204-5 ####[facility] LABIA [id number] [place], [place] [address]PIW (RBC) [Entitic mass]30.1 jvWvhrpi40.0-34.0[facility] on above:Order Comment: Specimen Type: BLOOD SPECIMENOrdering Facility: [facility] Address:[address] [place], [place] [address]Performed By: #### 69299-0 ####[facility] LABIA [id number] [place], [place] [address]TVKS (RBC) [Mass/Vol]34.2 g/zWMugkmt22.5-36.0[facility] on above: Order Comment: Specimen Type: BLOOD SPECIMENOrdering Facility: [facility] Address:[address] [place], [place] [address]Performed By: #### 28054- 8 ####[facility] LABIA [id number] [place], [place] [address]BYX (RBC) [Entitic vol]88.0 zSThpeli85.0-100.0[facility] on above:Order Comment: Specimen Type: BLOOD SPECIMENOrdering Facility: [facility] Address:[address] [place], [place] [address]Performed By: #### 25712-5 ####[facility] LABIA [id number] [place], [place] [address]Vntodibwh (Bld) [#/Vol]0.39 10*3/uLNormal<0.87[facility] on above:Order Comment: Specimen Type: BLOOD SPECIMENOrdering Facility: [facility] Address:[address] [place], [place] [address]Performed By: #### 22748- 8 ####[facility] LABIA [id number] [place], [place] [address]Ddvlbwhnx/100 WBC (Bld)7.6 %NormalMagruder Hospital on above:Order Comment: Specimen Type: BLOOD SPECIMENOrdering Facility: [facility] Address:[address] [place], [place] [address]Performed By: #### 27426-4 ####[facility] LABIA [id number] [place], [place] [address]Ouarmpjbxlh (Bld) [#/Vol]3.24 10*3/uLNormal1.45-7.50[facility] on above:Order Comment: Specimen Type: BLOOD SPECIMENOrdering Facility: [facility] Address:[address] [place], [place] [address]Performed By: #### 91102-4 ####[facility] LABCLIA [id number] [place], [place] [address]Apmgqgielvk/100 WBC (Bld)63.5 %NormalMagruder Hospital on above:Order Comment: Specimen Type: BLOOD SPECIMENOrdering Facility: [facility] Address:[address] [place], [place] [address]Performed By: #### 12909-4 ####[facility] LABCLIA [id number] [place], [place] [address]Zmqhiixlu RBC (Bld) [#/Vol] 10*3/uLNormal<0.01[facility] on above:Order Comment: Specimen Type: BLOOD SPECIMENOrdering Facility: [facility] Address:[address] [place], [place] [address]Performed By: #### 62850-4 ####[facility] LABCLIA [id number] [place], [place] [address]Jirefduef RBC/100 WBC (Bld) [Ratio]0.0 /100 WBCNormal [facility] on above:Order Comment: Specimen Type: BLOOD SPECIMENOrdering Facility: [facility] Address:[address] [place], [place] [address]Performed By: #### 72523-7 ####[facility] LABIA [id number] [place], [place] [address]Nepuwosp mean volume (Bld) [Entitic vol]10.0 fLNormal9.0-12.7CAccess [facility] [place] on above:Order Comment: Specimen Type: BLOOD SPECIMENOrdering Facility: [facility] Address:[address] [place], [place] [address] Performed By: #### 47774-0 ####[facility] LABCLIA [id number] [place], [place] [address]Whcyygopn (Bld) [#/Vol]248 10*3/dSTplynu141-681AceyaahxkMagruder Hospital on above:Order Comment: Specimen Type: BLOOD SPECIMENOrdering Facility: [facility] Address:[address] [place], [place] [address]Performed By: #### 37478-4 ####[facility] LABCLIA [id number] [place], [place] [address]YFH (d) [#/Vol]4.59 10*6/uLNormal3.90-5.20[facility] on above:Order Comment: Specimen Type: BLOOD SPECIMENOrdering Facility: [facility] Address:[address] [place], [place] [address]Performed By: #### 76725-9 ####[facility] LABCLIA [id number] [place], [place] [address]OTD (d) [#/Vol]5.10 10*3/uLNormal3.70-11.00[facility] on above: Order Comment: Specimen Type: BLOOD SPECIMENOrdering Facility: [facility] Address:[address] [place], [place] [address]Performed By: #### 94967- 8 ####[facility] LABCLIA [id number] [place], [place] [address]GOKPAOqk 98-39-8817VLYYUQOxlog (CY) Office ([place]) KIRT REYNA ([id number]) 1970 F Date Time Provider Department 04/22/25 2:00 PM SARA GARNERE MIRNA During your visit today, we recorded the following information about you: Temperature Pulse Respiration Blood pressure 97.6 degrees 81/minute 16/minute 148/82 Weight 82.8 kg VenturaVenusMARYCHUY 04/24/2025 1:46 PM Signed NAME: Kirt Reyna CLINIC NO.: [id number] DATE OF SERVICE: April 22, 2025 (Ventura) Some elements in this clinic note that are critical to medical decision making have been carefully reviewed and included from a prior clinic note dated: November 02, 2024 (Sangeetha) Referring Provider: Dr. Phil Dougherty Additional Clinicians involved in Kirt Reyna's care: Dr. Sondra Liu, Dr. Vitaly Vaughn, Dr. 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 Chemo RT started 06/13/2022. Stopped Xeloda pills on 07/01/2022 due to developing POTS symptoms. Good response ~ 1 month following RT. Continued response after treatment conclusion with abbreviated Xeloda. SUMMARIZED PLAN: RTC in 6 months - coordinate same day with Dr. Michaud Labs on return - CBC, CMP Repeat scans per Dr. Michaud Follow up with Dr. Dougherty as scheduled AI ASSISTED A/P: 1. Anal cancer (HCC) (C21.0) Patient is currently stable and asymptomatic, with no active bleeding or urinary issues. Next PET scan is scheduled for 10/27 and MRI for 11/03, with follow-up with Dr. Michaud in November. - Continue routine surveillance with PET scan on 10/27 and MRI on 11/03. - Follow-up with Dr. Michaud in November. - Advised patient to report any new or unusual symptoms promptly. - Return to clinic in November, coordinated with Dr. Michaud's appointment. 2. POTS (postural orthostatic tachycardia syndrome) (G90.A) - CASE HISTORY: Reverse Chronological Order 10/28/2024 - [...] sub-cm nodule, Abd/Pelvis - 1.4 cm rectal m (more content not included)... NormalPaulding County Hospitalprehensive metabolic 2000 panelon 04-22-2025 Albumin [Mass/Vol]4.4 g/dLNormal3.9-4.9CA[facility] [place] on above:Order Comment: Specimen Type: BLOOD SPECIMENOrdering Facility: [facility] Address:[address] [place], [place] [address]Performed By: #### 88649-7 ####[facility] LABCLIA [id number] [address] [address] [place] AMERICAALP [Catalytic activity/Vol]102 U/EOwgsqb05-105KlvsgefcnMagruder Hospital on above:Order Comment: Specimen Type: BLOOD SPECIMENOrdering Facility: [facility] Address:[address] [place], [place] [address]Performed By: #### 67337- 8 ####[facility] LABCLIA [id number] [address] [address] [place] AMERICAALT [Catalytic activity/Vol]20 U/LNormal7-38[facility] on above:Order Comment: Specimen Type: BLOOD SPECIMENOrdering Facility: [facility] Address:[address] [place], [place] [address]Result Comment: Specimen is lipemic. Lipemia removed prior to analysis.Performed By: #### 71714-4 ####[facility] LABCLIA [id number] [address] [place] [address] [place] AMERICAAnion gap [Moles/Vol]15 mmol/LNormal8-15[facility] on above:Order Comment: Specimen Type: BLOOD SPECIMENOrdering Facility: [facility] Address:[address] [place], [place] [address]Performed By: #### 70633-6 ####[facility] LABIA [id number] [address] [address] [place] AST [Catalytic activity/Vol]23 U/CHiwqne33-79VcgbykzcsMagruder Hospital on above:Order Comment: Specimen Type: BLOOD SPECIMENOrdering Facility: [facility] Address:[address] [place], [place] [address]Result Comment: Specimen is lipemic. Lipemia removed prior to analysis.Performed By: #### 89249-6 ####[facility] LABCLIA [id number] [address] [place] [address] [place] AMERICABilirubin [Mass/Vol] 0.3 mg/dLNormal0.2-1.3ClevelUniversity Hospitals Parma [facility] Center on above:Order Comment: Specimen Type: BLOOD SPECIMENOrdering Facility: [facility] Address:[address] [place], [place] [address]Performed By: #### 77369-4 ####[facility] LABCLIA [id number] [address] [place] [address] [place] AMERICACalcium [Mass/Vol]9.2 mg/dLNormal 8.5-10.2ClevelUniversity Hospitals Parma Medical Center on above:Order Comment: Specimen Type: BLOOD SPECIMENOrdering Facility: [facility] Address:[address] [place], [place] [address]Performed By: #### 11241-3 ####[facility] LABCLIA [id number] [place] [address] [place] AMERICAChloride [Moles/Vol]103 mmol/HTiglrr93-581EtsjdkqslMagruder Hospital on above:Order Comment: Specimen Type: BLOOD SPECIMENOrdering Facility: [facility] Address:[address] [place], [place] [address]Performed By: #### 42893-7 ####[facility] LABCLIA [id number] [place] [address] [place] AMERICACO2 [Moles/Vol]25 mmol/MVvffgw99-69UpuuuabocMagruder Hospital on above:Order Comment: Specimen Type: BLOOD SPECIMENOrdering Facility: [facility] Address:[address] [place], [place] [address]Performed By: #### 61313-5 ####[facility] LABIA [id number] [place] [address] [place] AMERICACreatinine [Mass/Vol] 0.64 mg/dLNormal0.58-0.96[facility] on above:Order Comment: Specimen Type: BLOOD SPECIMENOrdering Facility: [facility] Address:[address] [place], [place] [address]Performed By: #### 98761- 8 ####[facility] LABCLIA [id number] [place] [address] [place] AMERICAeGFRcr SerPlBld CKD-EPI 8885162 mL/min/1.73m???Normal>=60[facility] on above:Order Comment: Specimen Type: BLOOD SPECIMENOrdering Facility: [facility] Address:[address] [place], [place] [address]Result Comment: Estimated Glomerular Filtration Rate (eGFR) is calculated using the 2020 CKD-EPI cre atinine equation. This equation utilizes serum creatinine, sex, and age as parameters. The creatinine assay has traceable calibration to isotope dilution- mass spectrometry. Refer to KDIGO guidelines for clinical interpretation. In patients with unstable renal function, e.g. those with acute kidney injury, the eGFR may not accurately reflect actual GFR.Performed By: #### 43908-1 ####[facility] LABCLIA [id number] [place] [address] [place] AMERICAGlucose [Mass/Vol]120 mg/dLHigh 74-99[facility] on above:Order Comment: Specimen Type: BLOOD SPECIMENOrdering Facility: [facility] Address:[address] [place], [place] [address]Result Comment: The [place] Diabetes Association (ADA) provides guidance for cutoff [...] Standards of Medical Care in Diabetes 2016, [place] [employer] Association. Diabetes Care. 2016.39(Suppl 1).Performed By: #### 28620-7 ####[facility] LABCLIA [id number] [place] [address] [place] AMERICAPotassium [Moles/Vol]4.0 mmol/L Normal3.7-5.1CAccess [facility] on above:Order Comment: Specimen Type: BLOOD SPECIMENOrdering Facility: [facility] Address:[address] [place], [place] [address]Performed By: #### 04787-0 ####[facility] LABIA [id number] [place] [address] [place] AMERICAProtein [Mass/Vol]7.7 g/dLNormal6.3-8.0[facility] on above:Order Comment: Specimen Type: BLOOD SPECIMENOrdering Facility: [facility] Address:[address] [place], [place] [address]Performed By: #### 10671-0 ####[facility] LABCLIA [id number] [place] [address] [place] Sodium [Moles/Vol]143 mmol/RMioyzg533-743KkkaxqjbuMagruder Hospital on above:Order Comment: Specimen Type: BLOOD SPECIMENOrdering Facility: [facility] Address:[address] [place], [place] [address]Performed By: #### 18558-3 ####[facility] LABIA [id number] [place] [address] [place] AMERICAUrea nitrogen [Mass/Vol]17 mg/dLNormal7-21[facility] on above:Order Comment: Specimen Type: BLOOD SPECIMENOrdering Facility: [facility] Address:[address] [place], [place] [address]Performed By: #### 55273- 8 ####[facility] HOSPITALIA [id number] [address] STATES OF AMERICACNPNon 93-09-0440FLATLdrbbvuwq ([place]) KIRT REYNA ([id number]) 1970 F Date Time Provider Department 04/11/25 SHANNEN OLMSTEAD During your visit today, we recorded the following information about you: Shannen Olmstead RN 04/11/2025 10:10 AM Signed Labs pended for C Shannen Olmstead RN Allergies As of Date: 04/11/2025 Noted Allergy Reaction PENICILLIN G 08/23/2013 16 - Unknown SULFA (SULFONAMIDE ANTIBIOTICS) 08/23/2013 16 - Unknown Date Reviewed: 11/26/2024 Reviewed by: Phil Dougherty MD - Fully Assessed Reason for Visit: Lab Orders [7538] Primary Visit Diagnosis:Anal cancer (HCC) [C21.0] Order(s):COMPLETE BLOOD COUNT AND DIFFERENTIAL [SQCBCDIF] Order #: [id number] FUTURE COMPREHENSIVE METABOLIC PANEL [SQCMP] Order #: [id number] FUTURE Prescriptions as of 04/11/2025 - CALCIUM ORAL Take by mouth once daily. - cholecalciferol, vitamin D3, (VITAMIN D3 ORAL) Take by mouth once daily. - multivit-min/ferrous fumarate (MULTI VITAMIN ORAL) Take by mouth once daily. - ondansetron (ZOFRAN) 8 mg tablet TAKE 1 TABLET BY MOUTH EVERY 8 HOURS NEEDED FOR NAUSEA AND VOMITING - Drvkjokzj-Qtqacxvhhoaxsw-Kxsv 2.8-0.55 % gel Use 1 Applicator by RECTAL route twice daily as needed. - multivitamin tablet Take 1 tablet by mouth once daily. - acetaminophen/diphenhydramine (TYLENOL PM EXTRA STRENGTH ORAL) Take 500 mg by mouth as needed. - fludrocortisone (FLORINEF) 0.1 mg tablet TAKE 0.5 TABLET BY MOUTH TWICE A DAY Meds Comments as of 04/28/2023: Tumeric Problem List As Of Date 04/11/2025 Noted Resolved Hiatal hernia [K44.9] Vertigo [R42] Anal cancer (HCC) [C21.0] 05/27/2022 POTS (postural orthostatic tachycardia syndrome*05/27/2022 Encounter Status:Closed by VENUS GARNER on 04/11/25NoTriHealth [facility],APTIMA HPV,AGE GDLNon 95-11-4095SCP GDLN ACOG TESTINGNote.NOMS HealthcareComment on above:TESTS RESULT FLAG UNITS REF RANGE LAB Clinician Provided Cytology Information Source.............Cervix;Endocervix No. of containers..01 ThinPrep Vial Age [place] ACOG Aisha... 3065 FLAG LEGEND: L-Low Normal,H-High Normal,LL-Alert Low,HH-Alert High <-Panic Low,>-Panic High,A-Abnormal,AA-Critical Abnormal Performed at: 01 =[address] [address] Makenna Diop MD, HPV APTIMANegativeNegativeNOMS HealthcareComment on above:This nucleic acid amplification test detects fourteen high- risk HPV types (16,18,31,33,35,39,45,51,52,56,58,59,66,68) without differentiation. Performed at: =[address] [id number] Orthopaedic Physician Assistant: Makenna Diop MD, Phone: [phone] Performed at: [address] [id number] Orthopaedic Physician Assistant: Makenna Diop MD, Phone: [phone] IGP, APTIMA HPV, RFX 16/18,45Note.NOMS HealthcareComment on above:TESTS RESULT FLAG UNITS REF RANGE LAB DIAGNOSIS: 02 NEGATIVE FOR INTRAEPITHELIAL LESION OR MALIGNANCY. CELLULAR CHANGES ASSOCIATED WITH ATROPHY ARE PRESENT. Specimen adequacy: 02 Satisfactory for evaluation. Endocervical component may not be distinguished in cases of atrophy. Performed by: 02 Jannie aGrsia, Movement Assembly Final Inspector ([facility]) . 02 Note: Note 02 The Pap [...] <-Panic Low,>-Panic High,A-Abnormal,AA-Critical Abnormal Performed at: [address] [facility] [address] [address] Makenna Diop MD, BRUSH-SPATULA CERVIX ENDOCERVIX CLINISYNCNOMS [facility] HospitalOVon 19-77-5144JYIZXqxmqs Visit ([facility]) KIRT REYNA ([id number]) 1970 F Date Time Provider Department 11/26/24 3:40 PM PHIL DOUHGERTY [facility] During your visit today, we recorded the [...] differently: No sig reported) 90 tablet 1 Oprmcmfjr-Botqihowjcvlhx-Ekkw 2.8-0.55 % gel Use 1 Applicator by [...] exam reveals no gross blood or masses [employer] Supervisor present: Yes, Padmini Garcia Anoscopy: The patient was placed in chest-knee position. After digital exam with a lubricated finger, the scope was easily inserted. Posterior scar noted. Otherwise normal mucosa was noted. Anoscopy completed. The sensitive examination was discussed with the Patient or Patient's Authorized Product Support Technician. As applicable, any other physician, advance practice provider, medical student, or other health professional student that will be observing or involved in the sensitive examination for educational or training purposes was discussed with the Patient or Authorized Product Support Technician. The Patient or Authorized Product Support Technician has agreed to proceed with the sensitive [...] MD Colorectal Surgery Referring Provider: PHIL DOUGHERTY [[id number]] Allergies As of Date: 11/26/2024 Noted Allergy Reaction PE (more content not included)...Normal[facility] [id number] Visit (RADTSA) KIRT REYNA ([id number]) 1970 F Date Time Provider Department 11/02/24 2:00 PM TORIBIO MICHAUD During your visit today, we recorded the following information about you: Toribio Michaud MD 11/17/2024 5:54 AM Addendum Radiation Oncology - Follow Up Note PATIENT NAME: Kirt Reyna PATIENT DIAGNOSIS/PATIENT IDENTIFICATION: Ms. Reyna is a 54-year-old woman with [id number] squamous cell carcinoma of the anal canal. [...] VITAMIN ORAL) ondansetron (ZOFRAN) 8 mg tablet Mmuovrbmp-Hpnjdigxzzanbw-Ubur 2.8-0.55 % gel multivitamin tablet acetaminophen/diphenhydramine (TYLENOL [...] Ms. Reyna is a 54-year-old woman with uT9C1F9 squamous cell carcinoma of the anal canal. [...] which included preparing to see the patient, lpim-eq-bxqf patient care, and counseling and educating the patient/family/caregiver. This document has been created with the use of voice recognition technology. It may contain inaccuracies, misspellings, inaccurate syntax or inappropriate word context that are a result of the inadequacies/shortcomings of said technology/software. Referring Provider: PACO BONDS [[id number]] Allergies As of Date: 11/02/2024 Noted Allergy Reaction PENICILLIN G 08/23/2013 16 - Unknown SULFA (SULFONAMIDE ANTIBIOTICS) 08/23/2013 16 - Unknown Date Reviewed: 11/02/2024 Reviewed by: Eliza Ramires, BLAIR - Gui Carmona (more content not included)...Normal [facility] HospitalCNOVSPon 42-49-3143JHCMWQQwbbv (SP) Office (HEMASA) KIRT REYNA ([id number]) 1970 F Date Time Provider Department 11/02/24 1:40 PM PACO BONDS During your visit today, we recorded the following information about you: Temperature Pulse Respiration Blood pressure 98.1 degrees 79/minute 16/minute 138/79 Weight Height 83.4 kg 1.702 m Paco Bonds MD 11/02/2024 7:37 PM Signed NAME: MichelleNicolKitr CLINIC NO.: [id number] DATE OF SERVICE: November 02, 2024 (Sangeetha) Some elements in this clinic note that are critical to medical decision making have been carefully reviewed and included from a prior clinic note dated: April 26, 2024 (Dean) Referring Provider: Dr. Phil Dougherty Additional Clinicians involved in Kirteleno Reyna's care: Dr. Sondra Liu, Dr. Vitaly [...] for metastatic disease. 04/13 (more content not included)...Normal[facility] Auto Differential panel (Bld)on 48-43-0637Zsjvjzpyf (Bld) [#/Vol]NINFClevelSt. Vincent Hospital Basophils/100 WBC (Bld)0.4 %Parkwood HospitalDifferential cell count method Nom (Bld)AutoCleveland ClinicEosinophils (Bld) [#/Vol]0.14 10*3/uLNINFParkwood HospitalEosinophils/100 WBC (Bld)2.9 %Parkwood HospitalErythrocyte distribution width (RBC) [Ratio]13 %11.5 - 15.0 %[facility] HospitalHematocrit (Bld) [Volume fraction]39.2 %36.0 - 46.0 %[facility] HospitalHemoglobin (Bld) [Mass/Vol]13.3 g/dL 11.5 - 15.5 g/dLParkwood HospitalImmature granulocytes (Bld) [#/Vol]NINFClevelSt. Vincent HospitalImmature granulocytes/100 WBC (Bld)0.2 %[facility] HospitalLymphocytes (Bld) [#/Vol]1.06 10*3/uLParkwood HospitalLymphocytes/100 WBC (Bld)21.6 %[facility] District HospitalH (RBC) [Entitic mass]30.2 pg26.0 - 34.0 pgCChildren's Hospital of ColumbusHC (RBC) [Mass/Vol]33.9 g/dL30.5 - 36.0 g/dLHighland District HospitalV (RBC) [Entitic vol]89.1 fL80.0 - 100.0 fLCmercy memorial hospital ClinicMonocytes (Bld) [#/Vol]0.35 10*3/uLNINF Parkwood HospitalMonocytes/100 WBC (Bld)7.1 %[facility] HospitalNeutrophils (Bld) [#/Vol]3.32 10*3/uLParkwood HospitalNeutrophils/100 WBC (Bld)67.8 %[facility] HospitalNucleated RBC (Bld) [#/Vol]NINFClevelSt. Vincent HospitalNucleated RBC/100 WBC (Bld) [Ratio]0 %/100 WBCParkwood HospitalPlatelet mean volume (Bld) [Entitic vol]9.9 fL9.0 - 12.7 fLCMercy HealthPlatelets (Bld) [#/Vol]242 10*3/uLParkwood HospitalRBC (Bld) [#/Vol]4.4 10*6/uL3.90 - 5.20 m/[facility] Willard HospitalWBC (Bld) [#/Vol]4.9 10*3/uLKnox Community Hospital ClinicBasophils (Bld) [#/Vol]10*3/uL Normal<0.11CBarnesville HospitalComment on above:Order Comment: Specimen Type: BLOOD SPECIMENOrdering Facility: [facility] Address:[address] [place], [place] [address]Performed By: #### 83820-1 ####[facility] LABCLIA [id number] [place] [address] Basophils/100 WBC (Bld)0.4 %NormalMagruder Hospital on above: Order Comment: Specimen Type: BLOOD SPECIMENOrdering Facility: [facility] Address:[address] [place], [place] [address]Performed By: #### 95260- 8 ####[facility] LABCLIA [id number] [place], [place] [address]Duojquvwrgrp cell count method Nom (Bld)AutoNormal [facility] on above:Order Comment: Specimen Type: BLOOD SPECIMENOrdering Facility: [facility] Address:[address] [place], [place] [address]Performed By: #### 30433-9 ####[facility] LABCLIA [id number] [place], [place] [address]Vitntyxpzxi (Bld) [#/Vol]0.14 10*3/uLNormal<0.46[facility] on above: Order Comment: Specimen Type: BLOOD SPECIMENOrdering Facility: [facility] Address:[address] [place], [place] [address]Performed By: #### 17353- 8 ####[facility] LABCLIA [id number] [place], [place] [address]Wokmdcywrcr/100 WBC (Bld)2.9 %NormalMagruder Hospital on above:Order Comment: Specimen Type: BLOOD SPECIMENOrdering Facility: [facility] Address:[address] [place], [place] [address]Performed By: #### 05989-9 ####[facility] LABCLIA [id number] [place], [place] [address]Nzkaiwkcsav distribution width (RBC) [Ratio]13.0 %Esduka69.5-15.0[facility] on above: Order Comment: Specimen Type: BLOOD SPECIMENOrdering Facility: [facility] Address:[address] [place], [place] [address]Performed By: #### 70341- 8 ####[facility] LABCLIA [id number] [place], [place] [address]Hyrejdzqme (Bld) [Volume fraction]39.2 %Azfzhy82.0-46.0 [facility] on above:Order Comment: Specimen Type: BLOOD SPECIMENOrdering Facility: [facility] Address:[address] [place], [place] [address]Performed By: #### 95121-3 ####[facility] LABIA [id number] [place], [place] [address]Uwedgqhniq (Bld) [Mass/Vol]13.3 g/qDAqbvaf16.5-15.5CAccess Hospital Dayton on above: Order Comment: Specimen Type: BLOOD SPECIMENOrdering Facility: [facility] Address:[address] [place], [place] [address]Performed By: #### 30883- 8 ####[facility] LABIA [id number] [place], [place] [address]Vkxkghhu granulocytes (Bld) [#/Vol]10*3/uLNormal<0.10 [facility] on above:Order Comment: Specimen Type: BLOOD SPECIMENOrdering Facility: [facility] Address:[address] [place], [place] [address]Performed By: #### 11839-3 ####[facility] LABIA [id number] [place], [place] [address]Jedmeloe granulocytes/100 WBC (Bld)0.2 %NormalMagruder Hospital on above: Order Comment: Specimen Type: BLOOD SPECIMENOrdering Facility: [facility] Address:[address] [place], [place] [address]Performed By: #### 04169- 8 ####[facility] LABCLIA [id number] [place], [place] [address]Krfqhknffyj (Bld) [#/Vol]1.06 10*3/uLNormal1.00-4.00 [facility] on above:Order Comment: Specimen Type: BLOOD SPECIMENOrdering Facility: [facility] Address:[address] [place], [place] [address]Performed By: #### 44564-6 ####[facility] LABCLIA [id number] [place], [place] [address]Mlpbpllrkvh/100 WBC (Bld)21.6 %NormalMagruder Hospital on above:Order Comment: Specimen Type: BLOOD SPECIMENOrdering Facility: [facility] Address:[address] [place], [place] [address]Performed By: #### 75203-9 ####[facility] LABCLIA [id number] [place], [place] [address]FHO (RBC) [Entitic mass]30.2 daYkhtos31.0-34.0[facility] on above:Order Comment: Specimen Type: BLOOD SPECIMENOrdering Facility: [facility] Address:[address] [place], [place] [address]Performed By: #### 81704-7 ####[facility] LABCLIA [id number] [place], [place] [address]TDDQ (RBC) [Mass/Vol]33.9 g/hBAtsvda68.5-36.0[facility] on above: Order Comment: Specimen Type: BLOOD SPECIMENOrdering Facility: [facility] Address:[address] [place], [place] [address]Performed By: #### 91677- 8 ####[facility] LABCLIA [id number] [place], [place] [address]RBE (RBC) [Entitic vol]89.1 iVDobyrq10.0-100.0[facility] on above:Order Comment: Specimen Type: BLOOD SPECIMENOrdering Facility: [facility] Address:[address] [place], [place] [address]Performed By: #### 03118-4 ####[facility] LABCLIA [id number] [place], [place] [address]Yswnzmhqx (Bld) [#/Vol]0.35 10*3/uLNormal<0.87[facility] on above:Order Comment: Specimen Type: BLOOD SPECIMENOrdering Facility: [facility] Address:[address] [place], [place] [address]Performed By: #### 46147- 8 ####[facility] LABCLIA [id number] [place], [place] [address]Maqgqlqcx/100 WBC (Bld)7.1 %NormalMagruder Hospital on above:Order Comment: Specimen Type: BLOOD SPECIMENOrdering Facility: [facility] Address:[address] [place], [place] [address]Performed By: #### 51023-3 ####[facility] LABCLIA [id number] [place], [place] [address]Cxdahncsrrd (Bld) [#/Vol]3.32 10*3/uLNormal1.45-7.50[facility] on above:Order Comment: Specimen Type: BLOOD SPECIMENOrdering Facility: [facility] Address:[address] [place], [place] [address]Performed By: #### 76111-3 ####[facility] LABCLIA [id number] [place], [place] [address]Pjkzbrustgz/100 WBC (Bld)67.8 %NormalMagruder Hospital on above:Order Comment: Specimen Type: BLOOD SPECIMENOrdering Facility: [facility] Address:[address] [place], [place] [address]Performed By: #### 61243-9 ####[facility] LABCLIA [id number] [place], [place] [address]Kribeuygn RBC (Bld) [#/Vol] 10*3/uLNormal<0.01[facility] on above:Order Comment: Specimen Type: BLOOD SPECIMENOrdering Facility: [facility] Address:[address] [place], [place] [address]Performed By: #### 29683-2 ####[facility] LABCLIA [id number] [place], [place] [address]Dncpaecex RBC/100 WBC (Bld) [Ratio]0.0 /100 WBCNormal [facility] on above:Order Comment: Specimen Type: BLOOD SPECIMENOrdering Facility: [facility] Address:[address] [place], [place] [address]Performed By: #### 89656-3 ####[facility] LABIA [id number] [place], [place] [address]Vjbpwvgo mean volume (Bld) [Entitic vol]9.9 fLNormal9.0-12.7CAccess Hospital Dayton on above:Order Comment: Specimen Type: BLOOD SPECIMENOrdering Facility: [facility] Address:[address] [place] [address] Performed By: #### 88559-2 ####[facility] LABIA [id number] [place], [place] [address]Aindtcxyn (Bld) [#/Vol]242 10*3/xPPnsctf718-863VurdjtcpmMagruder Hospital on above:Order Comment: Specimen Type: BLOOD SPECIMENOrdering Facility: [facility] Address:[address] [place], [place] [address]Performed By: #### 34063-9 ####[facility] LABCLIA [id number] [place], [place] [address]VMI (Bld) [#/Vol]4.40 10*6/uLNormal3.90-5.20[facility] on above:Order Comment: Specimen Type: BLOOD SPECIMENOrdering Facility: [facility] Address:[address] [place] [address]Omvnksqcm By: #### 59744-1 ####[facility] LABCLIA [id number] [place], [place] [address]KNT (Bld) [#/Vol]4.90 10*3/uLNormal3.70-11.00[facility] on above: Order Comment: Specimen Type: BLOOD SPECIMENOrdering Facility: [facility] Address:[address] [place] [address]Ljefmobsi By: #### 76106- 8 ####[facility] LABCLIA [id number] [place], [place] [address]HV ABDOMEN W IVCONon 11-83-4905CS ABDOMEN W IVCON* * *Final Report* * * DATE OF EXAM: Oct 28 2024 11:22AM [facility] 0533 - CT ABDOMEN W IVCON / [...] was performed concurrently and is dictated separately. Scudding Inspector (topogram) images: Unremarkable. IMPRESSION: No metastatic disease [...] any questions regarding this interpretation, please call [phone]. If you are unable to reach us at the number above, please feel free to contact [facility] eRadiology at [phone]. [id number]_[id number] Hospital Dayton Abdomen W contrast John [id number]: No metastatic disease in the abdomen. Transcribe Date/Time: Oct 28 2024 1:03P Dictated by: AGUSTÍN CHAVEZ MD This examination was interpreted and the report reviewed and electronically signed by: AGUSTÍN CHAVEZ MD on Oct 28 2024 1:07PM EST Thank you for allowing us to participate in the care of your patient. Should there be any questions regarding this interpretation, please call [phone]. If you are unable to reach us at the number above, please feel free to contact [facility] eRadiology at [phone].DIVISION OF RADIOLOGY* * *Final Report* * * DATE OF EXAM: Oct 28 2024 11:22AM [facility] 0533 - CT ABDOMEN W IVCON / [...] was performed concurrently and is dictated separately. Scudding Inspector (topogram) images: Unremarkable. DIVISION OF RADIOLOGYProvider, [facility] [place] - 10/28/2024 * * *Final Report* * * DATE OF EXAM: Oct 28 2024 11:22AM [facility] 0533 - CT ABDOMEN W IVCON / [...] was performed concurrently and is dictated separately. Scudding Inspector (topogram) images: Unremarkable. IMPRESSION IMPRESSION: No metastatic [...] any questions regarding this interpretation, please call [phone]. If you are unable to reach us at the number above, please feel free to contact [facility] at [phone]. [facility] CHEST W IVCONon [id number] CHEST W IVCON* * *Final Report* * * DATE OF EXAM: Oct 28 2024 11:22AM [facility] 0539 - CT CHEST W IVCON / [...] was performed concurrently and is dictated separately. Scudding Inspector (topogram) images: Unremarkable. IMPRESSION: No metastatic disease [...] any questions regarding this interpretation, please call [phone]. If you are unable to reach us at the number above, please feel free to contact [facility] eRadiology at [phone]. [id number]_IDCSIACNNormalMercer County Community HospitalCT Chest W contrast John [id number]: No metastatic disease in the chest. Transcribe Date/Time: Oct 28 2024 12:47P Dictated by: AGUSTÍN CHAVEZ MD This examination was interpreted and the report reviewed and electronically signed by: AGUSTÍN CHAVEZ MD on Oct 28 2024 12:59PM EST Thank you for allowing us to participate in the care of your patient. Should there be any questions regarding this interpretation, please call [phone]. If you are unable to reach us at the number above, please feel free to contact [facility] eRadiology at [phone].DIVISION OF RADIOLOGY* * *Final Report* * * DATE OF EXAM: Oct 28 2024 11:22AM [facility] 0539 - CT CHEST W IVCON / [...] was performed concurrently and is dictated separately. Scudding Inspector (topogram) images: Unremarkable. DIVISION OF RADIOLOGYProvider, [facility] [place] - 10/28/2024 * * *Final Report* * * DATE OF EXAM: Oct 28 2024 11:22AM [facility] 0539 - CT CHEST W IVCON / [...] was performed concurrently and is dictated separately. Scudding Inspector (topogram) images: Unremarkable. IMPRESSION IMPRESSION: No metastatic [...] any questions regarding this interpretation, please call [phone]. If you are unable to reach us at the number above, please feel free to contact [facility] eRadiology at [phone]. [facility] Chest W contrast IVOrdered By: Ccf Provider on 10-28-2024 Parkwood HospitalComprehensive metabolic 2000 panelOrdered By: Mando Underwood on 58-78-6060Zodsaby [Mass/Vol]4.5 g/dL3.9 - 4.9 g/dLSaint Louis ClinicALP [Catalytic activity/Vol]114 U/L34 - 123 U/LCleveland ClinicALT [Catalytic activity/Vol]25 U/L7 - 38 U/LCleveland ClinicAnion gap [Moles/Vol]12 mmol/L8 - 15 mmol/L [facility] ClinicAST [Catalytic activity/Vol]24 U/L13 - 35 U/LCleveland Clinic Bilirubin [Mass/Vol]0.2 mg/dL0.2 - 1.3 mg/dLSaint Louis ClinicCalcium [Mass/Vol] 9.8 mg/dL8.5 - 10.2 mg/dLSaint Louis ClinicChloride [Moles/Vol]101 mmol/L98 - 107 mmol/LCleveland ClinicCO2 [Moles/Vol]26 mmol/L22 - 30 mmol/LCleveland Clinic Creatinine [Mass/Vol]0.63 mg/dL0.58 - 0.96 mg/dLParkwood HospitalGFR/1.73 sq M.predicted among non-blacks MDRD (S/P/Bld) [Vol rate/Area]105 mL/min/{1.73_m2}- PINFCleveland ClinicComment on above:Estimated Glomerular Filtration Rate (eGFR) is calculated using the 2020 CKD-EPI creatinine equation. This equation utilizes serum creatinine, sex, and age as parameters. The creatinine assay has traceable calibration to isotope dilution-mass spectrometry. Refer to KDIGO guidelines for clinical interpretation. In patients with unstable renal function, e.g. those with acute kidney injury, the eGFRmay not accurately reflect actual GFR.Glucose [Mass/Vol]107 mg/gWUbfi89 - 99 mg/dLAvita Health System Bucyrus [facility] on above:The [place] Diabetes Association (ADA) provides guidance for cutoff values for fasting glucose andrandom glucose. The ADA defines fasting as no [...] Standards of Medical Care in Diabetes 2016, [place] Diabetes Association. Diabetes Care. 2016.39(Suppl 1). Interpretation and review of laboratory resultsAbnormalCleveland ClinicPotassium [Moles/Vol]3.8 mmol/L3.7 - 5.1 mmol/LCmercy memorial hospital ClinicProtein [Mass/Vol]7.6 g/dL 6.3 - 8.0 g/dLCleveland Clinic Avon Hospitalodium [Moles/Vol]139 mmol/L136 - 144 mmol/L Parkwood HospitalUrea nitrogen [Mass/Vol]19 mg/dL7 - 21 mg/dLCleveland ClinicComprehensive metabolic 2000 panelon 00-81-2012Tyqcewm [Mass/Vol]4.5 g/dLNormal3.9-4.9CAccess Hospital Dayton on above:Order Comment: Specimen Type: BLOOD SPECIMENOrdering Facility: [facility] Address:[address] [place], [place] [address]Ktcwgezqy By: #### 16203- 8 ####[facility] LABCLIA [id number] [place], [place] [address]JDZ [Catalytic activity/Vol]114 U/UXksrnl07-994LdbnpnbxbMagruder Hospital on above:Order Comment: Specimen Type: BLOOD SPECIMENOrdering Facility: [facility] Address:[address] [place], [place] [address]Bgtbopstg By: #### 45986-8 ####[facility] LABCLIA [id number] [place], [place] [address]ELT [Catalytic activity/Vol]25 U/LNormal7-38[facility] on above:Order Comment: Specimen Type: BLOOD SPECIMENOrdering Facility: [facility] Address:[address] [place], [place] [address]Performed By: #### 66280- 8 ####[facility] LABCLIA [id number] [facility], [place] [address]Yjwhg gap [Moles/Vol]12 mmol/LNormal8-15[facility] on above:Order Comment: Specimen Type: BLOOD SPECIMENOrdering Facility: [facility] Address:[address] [place], [place] [address]Performed By: #### 68953-8 ####[facility] LABCLIA [id number] [facility], [place] [address]XUS [Catalytic activity/Vol]24 U/DApcyjm20-53UokcpcwbhMagruder Hospital on above:Order Comment: Specimen Type: BLOOD SPECIMENOrdering Facility: [facility] Address:[address] [place], [place] [address]Performed By: #### 45098-3 ####[facility] LABCLIA [id number] [facility] [address] Bilirubin [Mass/Vol]0.2 mg/dLNormal0.2-1.3CAccess Hospital [facility] on above:Order Comment: Specimen Type: BLOOD SPECIMENOrdering Facility: [facility] Address:[address] [place], [place] [address]Performed By: #### 61953-7 ####[facility] LABCLIA [id number] [facility]NEFADUMOM[facility], [place] [address]Qulhwoy [Mass/Vol]9.8 mg/dLNormal8.5-10.2CAccess [facility] [place] on above:Order Comment: Specimen Type: BLOOD SPECIMENOrdering Facility: [facility] Address:[address] [place], [place] [address]Performed By: #### 34490-3 ####[facility] LABCLIA [id number] [place], [place] [address]Klptmitc [Moles/Vol]101 mmol/WKyujtz37-829BgolyztwsMagruder Hospital on above: Order Comment: Specimen Type: BLOOD SPECIMENOrdering Facility: [facility] Address:[address] [place], [place] [address]Performed By: #### 09345- 8 ####[facility] LABCLIA [id number] [place], [place] [address]MF0 [Moles/Vol]26 mmol/WHzfkji98-37QajslbbpvMagruder Hospital on above:Order Comment: Specimen Type: BLOOD SPECIMENOrdering Facility: [facility] Address:[address] [place], [place] [address]Performed By: #### 83218-5 ####[facility] LABCLIA [id number] [place], [place] [address]Tkdsxrezjo [Mass/Vol]0.63 mg/dL Normal0.58-0.96[facility] on above:Order Comment: Specimen Type: BLOOD SPECIMENOrdering Facility: [facility] Address:[address] [place], [place] [address]Performed By: #### 74851-8 ####[facility] LABCLIA [id number] [place], [place] [address]Txyxttmyiy and Glomerular filtration rate.predicted panel (S/P/Bld)105 mL/min/1.73m???Normal>=60[facility] on above:Order Comment: Specimen Type: BLOOD SPECIMENOrdering Facility: [facility] Address:[address] [place], [place] [address]Result Comment: Estimated Glomerular Filtration Rate (eGFR) is calculated using the 2020 CKD-EPI creatinine equation. This equation utilizes serum creatinine, sex, and age as parameters. The creatinine assay has traceable calibration to isotope dilution- mass spectrometry. Refer to KDIGO guidelines for clinical interpretation. In patients with unstable renal function, e.g. those with acute kidney injury, the eGFR may not accurately reflect actual GFR.Performed By: #### 88824-5 ####[facility] LABCLIA [id number] [place], [place] [address]Ajwuqbx [Mass/Vol]107 mg/kSAyzs21-25KljhkdyltMagruder Hospital on above:Order Comment: Specimen Type: BLOOD SPECIMENOrdering Facility: [facility] Address:[address] [place] [address]Vnolgv Comment: The [place] Diabetes Association (ADA) provides guidance for cutoff values for fasting glucose and random glucose. The ADA defines fasting as no caloric intake for at least 8 hours. Fasting plasma glucose results between 100 to 125 mg/dL indicate increased risk for diabetes (prediab etes). Fasting plasma glucose results greater than or [...] Standards of Medical Care in Diabetes 2016, [place] Diabetes Association. Diabetes Care. 2016.39(Suppl 1).Performed By: #### 72469-7 ####[facility] LABCLIA [id number] [place], [place] [address]Pldzarqda [Moles/Vol]3.8 mmol/LNormal3.7-5.1CAccess Hospital [facility] on above:Order Comment: Specimen Type: BLOOD SPECIMENOrdering Facility: [facility] Address:[address] [place], [place] [address]Syqhncwuy By: #### 92634-5 ####[facility] LABCLIA [id number] [place], [place] [address]Cofkfsp [Mass/Vol]7.6 g/dLNormal6.3-8.0[facility] on above:Order Comment: Specimen Type: BLOOD SPECIMENOrdering Facility: [facility] Address:[address] [place], [place] [address]Performed By: #### 83173- 8 ####[facility] LABCLIA [id number] [place], [place] [address]Hhcfzx [Moles/Vol]139 mmol/DFcxbwz420-095YgpotrizcMagruder Hospital on above:Order Comment: Specimen Type: BLOOD SPECIMENOrdering Facility: [facility] Address:[address] [place], [place] [address]Performed By: #### 78396-3 ####[facility] LABCLIA [id number] [place], [place] [address]Yats nitrogen [Mass/Vol]19 mg/dLNormal7-21[facility] on above:Order Comment: Specimen Type: BLOOD SPECIMENOrdering Facility: [facility] Address:[address] [place], [place] [address]Performed By: #### 91426-9 ####[facility] LABCLIA [id number] [place], [place] [address]Ch Panel Informationon 74-23-9538Ehnivnefg Study observation (narrative)[facility] Pelvis WO contraston 10-26-2024 IMPRESSION: Since 09/29/2023, post treatment primary tumor [...] NAVA MD on Oct 26 2024 12:44PM [facility] RADIOLOGY* * *Final Report* * * DATE OF [...] of the rectal cancer multidisciplinary tumor board. [facility] RADIOLOGYProvipeoples hospital, [facility] [place] - 10/26/2024 * * *Final Report* * * DATE OF EXAM: Oct 26 2024 11:38AM [facility] 0754 - MRI RECTUM WO/W IVCON / [...] NAVA MD on Oct 26 2024 12:44PM [facility] HospitalRad[facility] Study observation (narrative)[facility] Pelvis WO contrastOrdered By: Ccf Provider on 39-34-5811Tprufhrdi ClinicMRI RECTUM WO/W IVCONon 37-87-1540LGP RECTUM WO/W IVCON* * *Final Report* * * DATE OF [...] MD on Oct 26 2024 12:44PM EST [id number]_IDCSIACNNHannibal Regional Hospital TOMOSYNTHESIS SCREENING BIon 91-57[place]1692[place] [address] Mammography Report Signed Patient: KIRT REYNA MR#: [id number] : 1970 Acct:[id number] Age/Sex: 54 / F ADM Date: 10/22/24 Loc: MAMMO Attending Dr: Pérez Hubbard D.O. Ordering Physician: Pérez Hubbard D.O. Results: Date of Service: 10/22/24 Follow Up: Procedure(s): MM tomosynthesis screening BI Accession Number(s): [id number] cc: Pérez Hubbard D.O.; Sondra Liu M.D. Patient Name: KIRT REYNA MR#: [id number] : 1970 Exam Date: 10/22/2024 Ordering Doctor: [...] Treatments None Family Cancers None LOCATION: [facility] BREAST COMPOSITION: The breasts are extremely [...] Signed By: 10/22/24 1226 DD/ 1225 TD/TT: Statistical Machine Servicer:TBHRadiology, Radiologist, - 10/22/2024 [place] [address] Mammography Report Signed Patient: KIRT REYNA MR#: [id number] : 1970 Acct:[id number] Age/Sex: 54 / F ADM Date: 10/22/24 Loc: MAMMO Attending Dr: Pérez Hubbard D.O. Ordering Physician: Pérez Hubbard D.O. Results: Date of Service: 10/22/24 Follow Up: Procedure(s): MM tomosynthesis screening BI Accession Number(s): [id number] cc: Pérez Hubbard D.O.; Sondra Liu M.D. Patient Name: KIRT REYNA MR#: [id number] : 1970 Exam Date: 10/22/2024 Ordering Doctor: [...] Treatments None Family Cancers None LOCATION: [facility] BREAST COMPOSITION: The breasts are extremely [...] Signed By: 10/22/24 1226 DD/ 1225 TD/TT: Statistical Machine Servicer: PEARL HealthcareRadiology Study observation (narrative)[facility] TOMOSYNTHESIS SCREENING BIOrdered By: Radiologist Radiology on 46-20-5101[employer] Work Phone: cNOVcaitlyn [phone] Visit ([facility]) KIRT REYNA ([id number]) 1970 F Date Time Provider Department 05/28/24 3:40 PM PHIL DOUGHERTY [facility] During your visit today, we recorded the [...] taking differently: As needed) 90 tablet 1 Iqvrfxdmv-Yhwwlxwsohjfug-Srje 2.8-0.55 % gel Use 1 Applicator by [...] exam reveals no gross blood or masses Car And Yard Supervisor present: Yes, Padmini Garcia Anoscopy: The patient was placed in chest-knee position. After digital exam with a lubricated finger, the scope was easily inserted. Posterior scar noted. Otherwise normal mucosa was noted. Anoscopy completed. The sensitive examination was discussed with the Patient or Patient's Authorized Product Support Technician. As applicable, any other physician, advance practice provider, medical student, or other health professional student that will be observing or involved in the sensitive examination for educational or training purposes was discussed with the Patient or Authorized Product Support Technician. The Patient or Authorized Product Support Technician has agreed to proceed with the sensitive [...] MD Colorectal Surgery Referring Provider: PHIL DOUGHERTY [[id number]] Allergies As of Date: 05/28/2024 Noted Allergy Reaction PENICILLIN G 08/23/2013 16 - Unknown SULFA (SULFONAMIDE ANTIBIOTICS) 08/23/2013 16 - Unknown Date Reviewed: 05/28/2024 Reviewed by: Nadya Brunner OCCA - Fully Assessed Primary Visit Diagnosis:Encounter for follow-up surveillance of anal cancer (more content not included)...[facility] W Auto Differential panel (Bld)on 40-70-9342Zykfxlcbp (Bld) [#/Vol]10*3/uLNormal<0.11 [facility] on above:Order Comment: Specimen Type: BLOOD SPECIMENOrdering Facility: [facility] Address:[address] [place], [place] [address]Performed By: #### 34263-2 ####[facility] LABCLIA [id number] [place], [place] [address]Frijjdfft/100 WBC (Bld)0.2 %[facility] on above:Order Comment: Specimen Type: BLOOD SPECIMENOrdering Facility: [facility] Address:[address] [place], [place] [address]Performed By: #### 06933-3 ####[facility] LABCLIA [id number] [place], [place] [address]Bziujhnielhc cell count method Nom (Bld)AutoNormal [facility] on above:Order Comment: Specimen Type: BLOOD SPECIMENOrdering Facility: [facility] Address:[facility] [place], [place] [address]Performed By: #### 41834-3 ####[facility] LABCLIA [id number] [place], [place] [address]Vncnrvvcxyh (Bld) [#/Vol]0.09 10*3/uLNormal<0.46[facility] on above: Order Comment: Specimen Type: BLOOD SPECIMENOrdering Facility: [facility] Address:[address] [place], [place] [address]Performed By: #### 27995- 8 ####[facility] LABCLIA [id number] [place], [place] [address]Kbqgfutxvsx/100 WBC (Bld)1.9 %NormalMagruder Hospital on above:Order Comment: Specimen Type: BLOOD SPECIMENOrdering Facility: [facility] Address:[address] [place], [place] [address]Performed By: #### 24956-1 ####[facility] LABIA [id number] [place], [place] [address]Chtekdinldu distribution width (RBC) [Ratio]12.9 %Ykkndg55.5-15.0[facility] on above: Order Comment: Specimen Type: BLOOD SPECIMENOrdering Facility: [facility] Address:[address] [place], [place] [address]Performed By: #### 17360- 8 ####[facility] LABIA [id number] [place], [place] [address]Wwrpoheulc (Bld) [Volume fraction]39.5 %Toayxb73.0-46.0 [facility] on above:Order Comment: Specimen Type: BLOOD SPECIMENOrdering Facility: [facility] Address:[address] [place], [place] [address]Performed By: #### 74380-1 ####[facility] LABIA [id number] [place], [place] [address]Jbdlveikfi (Bld) [Mass/Vol]13.5 g/bKRsbvnm40.5-15.5CAccess Hospital Dayton on above: Order Comment: Specimen Type: BLOOD SPECIMENOrdering Facility: [facility] Address:[address] [place], [place] [address]Performed By: #### 63853- 8 ####[facility] LABCLIA [id number] [place], [place] [address]Cmjofbtv granulocytes (Bld) [#/Vol]10*3/uLNormal<0.10 [facility] on above:Order Comment: Specimen Type: BLOOD SPECIMENOrdering Facility: [facility] Address:[address] [place], [place] [address]Performed By: #### 15468-8 ####[facility] LABCLIA [id number] [place], [place] [address]Brykhqcj granulocytes/100 WBC (Bld)0.2 %NormalMagruder Hospital on above: Order Comment: Specimen Type: BLOOD SPECIMENOrdering Facility: [facility] Address:[address] [place], [place] [address]Performed By: #### 89025- 8 ####[facility] LABCLIA [id number] [place], [place] [address]Iauytaeoeby (Bld) [#/Vol]1.26 10*3/uLNormal1.00-4.00 [facility] on above:Order Comment: Specimen Type: BLOOD SPECIMENOrdering Facility: [facility] Address:[address] [place], [place] [address]Performed By: #### 85471-5 ####[facility] LABIA [id number] [place], [place] [address]Buugqoekaft/100 WBC (Bld)26.4 %NormalMagruder Hospital on above:Order Comment: Specimen Type: BLOOD SPECIMENOrdering Facility: [facility] Address:[address] [place], [place] [address]Performed By: #### 99070-0 ####[facility] LABIA [id number] [place], [place] [address]WUK (RBC) [Entitic mass]30.1 evMadmww41.0-34.0[facility] on above:Order Comment: Specimen Type: BLOOD SPECIMENOrdering Facility: [facility] Address:[address] [place], [place] [address]Performed By: #### 81055-1 ####[facility] LABCLIA [id number] [place], [place] [address]REUM (RBC) [Mass/Vol]34.2 g/fWSurnsy80.5-36.0[facility] on above: Order Comment: Specimen Type: BLOOD SPECIMENOrdering Facility: [facility] Address:[address] [place], [place] [address]Performed By: #### 56996- 8 ####[facility] LABCLIA [id number] [place], [place] [address]ZGQ (RBC) [Entitic vol]88.2 hFZswhhl34.0-100.0[facility] on above:Order Comment: Specimen Type: BLOOD SPECIMENOrdering Facility: [facility] Address:[address] [place], [place] [address]Performed By: #### 62724-9 ####[facility] LABIA [id number] [place], [place] [address]Izokcmlvm (Bld) [#/Vol]0.45 10*3/uLNormal<0.87[facility] on above:Order Comment: Specimen Type: BLOOD SPECIMENOrdering Facility: [facility] Address:[address] [place], [place] [address]Performed By: #### 32842- 8 ####[facility] LABCLIA [id number] [place], [place] [address]Sjotaswbg/100 WBC (Bld)9.4 %NormalMagruder Hospital on above:Order Comment: Specimen Type: BLOOD SPECIMENOrdering Facility: [facility] Address:[address] [place], [place] [address]Performed By: #### 83265-0 ####[facility] LABCLIA [id number] [place], [place] [address]Uzindwmmhzi (Bld) [#/Vol]2.95 10*3/uLNormal1.45-7.50[facility] on above:Order Comment: Specimen Type: BLOOD SPECIMENOrdering Facility: [facility] Address:[address] [place], [place] [address]Performed By: #### 53981-1 ####[facility] LABCLIA [id number] [place], [place] [address]Xwcqhiqrluh/100 WBC (Bld)61.9 %NormalMagruder Hospital on above:Order Comment: Specimen Type: BLOOD SPECIMENOrdering Facility: [facility] Address:[address] [place], [place] [address]Performed By: #### 38654-3 ####[facility] LABCLIA [id number] [place], [place] [address]Gxzaigwtd RBC (Bld) [#/Vol] 10*3/uLNormal<0.01[facility] on above:Order Comment: Specimen Type: BLOOD SPECIMENOrdering Facility: [facility] Address:[address] [place], [place] [address]Performed By: #### 23119-7 ####[facility] LABCLIA [id number] [place], [place] [address]Dlyuvsyru RBC/100 WBC (Bld) [Ratio]0.0 /100 WBCNormal [facility] on above:Order Comment: Specimen Type: BLOOD SPECIMENOrdering Facility: [facility] Address:[address] [place], [place] [address]Performed By: #### 69000-6 ####[facility] LABIA [id number] [place], [place] [address]Tsoeypsu mean volume (Bld) [Entitic vol]9.9 fLNormal9.0-12.7CAccess [facility] on above:Order Comment: Specimen Type: BLOOD SPECIMENOrdering Facility: [facility] Address:[address] [place] [address] Performed By: #### 84431-5 ####[facility] LABCLIA [id number] [place], [place] [address]Khsbnzpsg (Bld) [#/Vol]236 10*3/oIRuvhfz658-739OcavdtsihMagruder Hospital on above:Order Comment: Specimen Type: BLOOD SPECIMENOrdering Facility: [facility] Address:[address] [place], [place] [address]Performed By: #### 99177-4 ####[facility] LABIA [id number] [place], [place] [address]ZJE (Bld) [#/Vol]4.48 10*6/uLNormal3.90-5.20[facility] on above:Order Comment: Specimen Type: BLOOD SPECIMENOrdering Facility: [facility] Address:[address] [place], [place] [address]Performed By: #### 13017-7 ####[facility] LABIA [id number] [place], [place] [address]GCB (Bld) [#/Vol]4.77 10*3/uLNormal3.70-11.00[facility] on above: Order Comment: Specimen Type: BLOOD SPECIMENOrdering Facility: [facility] Address:[address] [place], [place] [address]Performed By: #### 13672- 8 ####[facility] LABIA [id number] [place], [place] [address]PQCUGVcv 85-89-4549AFESWUJvvxt (SP) Office (HEMASA) KIRT REYNA ([id number]) 1970 F Date Time Provider Department 04/26/24 3:00 PM GERARDO MCKINNON During your visit today, we recorded the following information about you: Temperature Pulse Respiration Blood pressure 97.9 degrees 89/minute 16/minute 129/72 Weight 82.2 kg Gerardo Mckinnon APRN.CNP 04/26/2024 9:05 PM Signed NAME: Kirt Reyna CLINIC NO.: [id number] DATE OF SERVICE: APRIL 26, 2024 (Dean) [...] hit. Updated Visit, Lis (more content not included)...NormalMercer County Community [facility] Comprehensive metabolic 2000 panelon 85-19-0247Psgnkvu [Mass/Vol]4.5 g/dLNormal 3.9-4.9CAccess [facility] on above:Order Comment: Specimen Type: BLOOD SPECIMENOrdering Facility: [facility] Address:[address] [place], [place] [address]Performed By: #### 51933-2 ####[facility] LABCLIA [id number] [place], [place] [address]KMK [Catalytic activity/Vol]107 U/MZlsmvs10-213XxostcqsbMagruder Hospital on above:Order Comment: Specimen Type: BLOOD SPECIMENOrdering Facility: [facility] Address:[address] [address]Performed By: #### 63532-5 ####[facility] LABCLIA [id number] [place], [place] [address]DTR [Catalytic activity/Vol]19 U/LNormal7-38[facility] on above:Order Comment: Specimen Type: BLOOD SPECIMENOrdering Facility: [facility] Address:[address] [place], [place] [address]Performed By: #### 78658-6 ####[facility]ALS[facility] LABCLIA [id number] [place], [place] [address]Wszth gap [Moles/Vol]12 mmol/LNormal8-15[facility] on above:Order Comment: Specimen Type: BLOOD SPECIMENOrdering Facility: [facility] Address:[address] [place], [place] [address]Performed By: #### 98867- 8 ####[facility] LABCLIA [id number] [facility] [place], [place] [address]CZT [Catalytic activity/Vol]22 U/LKnzqkk37-52KqekrtaclMagruder Hospital on above:Order Comment: Specimen Type: BLOOD SPECIMENOrdering Facility: [facility] Address:[address] [place], [place] [address]Performed By: #### 18792-3 ####[facility] LABCLIA [id number] [place], [place] [address]Nuaovjgnq [Mass/Vol]0.3 mg/dLNormal0.2-1.3CAccess [facility] on above:Order Comment: Specimen Type: BLOOD SPECIMENOrdering Facility: [facility] Address:[address] [place], [place] [address]Performed By: #### 35723- 8 ####[facility] LABCLIA [id number] [facility] [place] [place], [place] [address]Wgsafzx [Mass/Vol]9.4 mg/dLNormal8.5-10.2CA[facility] on above:Order Comment: Specimen Type: BLOOD SPECIMENOrdering Facility: [facility] Address:[address] [place], [place] [address]Performed By: #### 70119-1 ####[facility] LABCLIA [id number] [place], [place] [address]Vxdaivjf [Moles/Vol]101 mmol/L Tqopwd21-934Ptgqixcpy Clinic ClevelandComment on above:Order Comment: Specimen Type: BLOOD SPECIMENOrdering Facility: [facility] Address:[address] [place], [place] [address]Performed By: #### 01035-5 ####[facility] LABCLIA [id number] [place] [address] CO2 [Moles/Vol]26 mmol/LEefrab03-50JkbivryubMagruder Hospital on above: Order Comment: Specimen Type: BLOOD SPECIMENOrdering Facility: [facility] Address:[address] [place], [place] [address]Performed By: #### 33091- 8 ####[facility] LABCLIA [id number] [place], [place] [address]Bfxvggvzji [Mass/Vol]0.69 mg/dLNormal0.58-0.96[facility] on above:Order Comment: Specimen Type: BLOOD SPECIMENOrdering Facility: [facility] Address:[address] [place], [place] [address]Performed By: #### 09366-8 ####[facility] LABIA [id number] [place], [place] [address]Kyqnupzliv and Glomerular filtration rate.predicted panel (S/P/Bld)103 mL/min/1.73m???Normal >=60[facility] on above:Order Comment: Specimen Type: BLOOD SPECIMENOrdering Facility: [facility] Address:[address] [place], [place] [address]Result Comment: Estimated Glomerular Filtration Rate (eGFR) is calculated using the 2020 CKD-EPI creatinine equation. This equation utilizes serum creatinine, sex, and age as parameters. The creatinine assay has traceable calibration to isotope dilution-mass spectrometry. Refer to KDIGO guidelines for clinical interpretation. In patients with unstable renal function, e.g. those with acute kidney injury, the eGFR may not accurately reflect actual GFR.Performed By: #### 40818-1 ####[facility] LABIA [id number] [place], [place] [address]Igofhsf [Mass/Vol]101 mg/wDIgcr09-20NrnrryoqbMagruder Hospital on above:Order Comment: Specimen Type: BLOOD SPECIMENOrdering Facility: [facility] Address:[address] [place], [place] [address]Result Comment: The [place] Diabetes Association (ADA) provides guidance for cutoff values for fast ing glucose and random glucose. The ADA defines [...] Standards of Medical Care in Diabetes 2016, [place] [employer] Association. Diabetes Care. 2016.39(Suppl 1).Performed By: #### 80713-4 ####[facility] LABCLIA [id number] [place], [place] [address]Wtokaancz [Moles/Vol]4.1 mmol/LNormal3.7-5.1CAccess [facility] on above:Order Comment: Specimen Type: BLOOD SPECIMENOrdering Facility: [facility] Address:[address] [place] [address]Vcljmcdbj By: #### 75997-4 ####[facility] LABCLIA [id number] [place], [place] [address]Fxdvljk [Mass/Vol]7.6 g/dLNormal6.3-8.0[facility] on above:Order Comment: Specimen Type: BLOOD SPECIMENOrdering Facility: [facility] Address:[address] [place], [place] [address]Performed By: #### 29626- 8 ####[facility] LABCLIA [id number] [place], [place] [address]Lxoghr [Moles/Vol]139 mmol/IXwnlip914-543Czucqvdko Clinic ClevelandComment on above:Order Comment: Specimen Type: BLOOD SPECIMENOrdering Facility: [facility] Address:[address] [place], [place] [address]Aajunjfog By: #### 60844-2 ####[facility] LABCLIA [id number] [place], [place] [address]Hwnd nitrogen [Mass/Vol]19 mg/dLNormal7-21Mer[facility] County Community HospitalComment on above:Order Comment: Specimen Type: BLOOD SPECIMENOrdering Facility: [facility] Address:[address] [place] [address]Mjygunyer By: #### 19401-1 ####[facility] LABCLIA [id number] [place], [place] [address]SR Chest WO contraston 19-41-4844MLQIZOCZXS: 1. Stable subcentimeter pulmonary nodules which are [...] any questions regarding this interpretation, please call [phone]. If you are unable to reach us at the number above, please feel free to contact [facility] eRadiology at [phone].DIVISION OF RADIOLOGY* * *Final Report* * * DATE OF EXAM: Oct 01 2023 10:43AM [facility] 0541 - CT CHEST WO IVCON / [...] No abnormality in the imaged upper abdomen. Scudding Inspector (topogram) images: No additional findings. DIVISION OF RADIOLOGYProvider, [facility] [place] - 10/01/2023 * * *Final Report* * * DATE OF EXAM: Oct 01 2023 10:43AM [facility] 0541 - CT CHEST WO IVCON / [...] No abnormality in the imaged upper abdomen. Scudding Inspector (topogram) images: No additional findings. IMPRESSION IMPRESSION: [...] any questions regarding this interpretation, please call [phone]. If you are unable to reach us at the number above, please feel free to contact [facility] eRadiology at [phone]. [facility] HospitalRadiology Study observation (narrative)[facility] Chest WO contrastOrdered By: Ccf Provider on 98-71-1590Dmyhgjtos ClinicNo Panel Informationon 10-88-2448Njypbknfx ClinicMRI RECTUM WO/W IVCONon 13-40-5283BRS RECTUM WO/W IVCON* * *Final Report* * * DATE OF [...] Yes Other: COMPARISON: 05/21/2022 TECHNIQUE: Magnet: [employer] 1.5T scanner. Multiplanar MRI with multiple sequences [...] RESIDUAL VIABLE TUMOR REMAINING. NO PELVIC LYMPHADENOPATHY. Statistical Machine Servicer: PSCB Transcribe Date/Time: Oct 11 2022 5:09P Dictated by : DIMA TREVIZO MD This examination was interpreted and the report reviewed and electronically signed by: DIMA TREVIZO MD on Oct 11 2022 5:39PM EST [id number] HospitalNURSING PROGon 89-04-9239UTASIIM PROGHNO ID: [id number] Author: Melissa Vazquez RN Service: Nursing Author [...] Reyna DATE: October 11, 2022 TIME: 2:45 [facility] HospitalConsultation Noteon 82-66-0409Dbckqlhgdcrt [id number]#1.00CD:127[facility] W Auto Differential panel (Bld)on 49-00-9255Hmzqubgyw (Bld) [#/Vol]NINFCleveland ClinicBasophils/100 WBC (Bld)0.2 %[facility] Differential cell count method Nom (Bld)AutoCleveland ClinicEosinophils (Bld) [#/Vol]0.20 10*3/uLNINFCleProMedica Fostoria Community HospitalEosinophils/100 WBC (Bld)4.0 %[facility]wood HospitalErythrocyte distribution width (RBC) [Ratio]13.7 %11.5 - 15.0 %[facility]wood HospitalHematocrit (Bld) [Volume fraction]38.2 %36.0 - 46.0 %[facility] Hemoglobin (Bld) [Mass/Vol]12.9 g/dL11.5 - 15.5 g/dLParkwood HospitalImmature granulocytes (Bld) [#/Vol]NINFCleveland ClinicImmature granulocytes/100 WBC (Bld)0.2 %[facility] HospitalInterpretation and review of laboratory results AbnormalParkwood HospitalLymphocytes (Bld) [#/Vol]0.61 10*3/uLLowParkwood Hospital Lymphocytes/100 WBC (Bld)12.2 %[facility] HospitalH (RBC) [Entitic mass]30.3 pg 26.0 - 34.0 pgCChildren's Hospital of ColumbusHC (RBC) [Mass/Vol]33.8 g/dL30.5 - 36.0 g/dL [facility] HospitalV (RBC) [Entitic vol]89.7 fL80.0 - 100.0 fLCMercy Health Monocytes (Bld) [#/Vol]0.43 10*3/uLNINFParkwood HospitalMonocytes/100 WBC (Bld) 8.6 %[facility] HospitalNeutrophils (Bld) [#/Vol]3.76 10*3/uLParkwood Hospital Neutrophils/100 WBC (Bld)74.8 %[facility] HospitalNucleated RBC (Bld) [#/Vol]NINF [facility] HospitalNucleated RBC/100 WBC (Bld) [Ratio]0.0 %/100 WBCParkwood Hospital Platelet mean volume (Bld) [Entitic vol]9.9 fL9.0 - 12.7 fLCMercy Health Platelets (Bld) [#/Vol]222 10*3/uLParkwood HospitalRBC (Bld) [#/Vol]4.26 10*6/uL 3.90 - 5.20 m/[facility] Willard HospitalWBC (Bld) [#/Vol]5.02 10*3/[facility] This is an appended report. These results have been appended to a previously verified report.[facility] NorthCT Abdomen and Pelvis W contrast John 65-08-9594MIFWYQSIFG: 1. 1.4 cm right rectal mass, decreased [...] any questions regarding this interpretation, please call [phone]. If you are unable to reach us at the number above, please feel free to contact [facility] eRadiology at [phone].DIVISION OF RADIOLOGY* * *Final Report* * * DATE OF EXAM: Aug 28 2022 10:54AM [facility] 0530 - CT ABD/PEL W IVCON / [...] performed concurrently and will be dictated separately. Scudding Inspector (topogram) images: No additional findings. DIVISION OF RADIOLOGYProvider, [facility] [place] - 08/28/2022 * * *Final Report* * * DATE OF EXAM: Aug 28 2022 10:54AM [facility] 0530 - CT ABD/PEL W IVCON / [...] performed concurrently and will be dictated separately. Scudding Inspector (topogram) images: No additional findings. IMPRESSION IMPRESSION: [...] any questions regarding this interpretation, please call [phone]. If you are unable to reach us at the number above, please feel free to contact [facility] at [phone]. [facility] Abdomen and Pelvis W contrast IVOrdered By: [facility] Provider on [id number] ClinicCT Chest W contrast John [id number]: Stable CT examination of the chest. Subcentimeter [...] any questions regarding this interpretation, please call [phone]. If you are unable to reach us at the number above, please feel free to contact [facility] at [phone].DIVISION OF RADIOLOGY* * *Final Report* * * DATE OF EXAM: Aug 28 2022 10:54AM [facility] 0539 - CT CHEST W IVCON / [...] images through the upper abdomen are stable. Scudding Inspector (topogram) images: No additional findings. DIVISION OF RADIOLOGYProvider, [facility] [place] - 08/28/2022 * * *Final Report* * * DATE OF EXAM: Aug 28 2022 10:54AM [facility] 0539 - CT CHEST W IVCON / [...] images through the upper abdomen are stable. Scudding Inspector (topogram) images: No additional findings. IMPRESSION IMPRESSION: [...] any questions regarding this interpretation, please call [phone]. If you are unable to reach us at the number above, please feel free to contact [facility] eRadiology at [phone]. [facility] NorthComprehensive metabolic 2000 panelOrdered By: Arin Cheatham on [id number] [Mass/Vol]4.6 g/dL3.9 - 4.9 g/dLSaint Louis ClinicALP [Catalytic activity/Vol]90 U/L34 - 123 U/LCleveland ClinicALT [Catalytic activity/Vol]20 U/L7 - 38 U/LCleveland ClinicAnion gap [Moles/Vol]12 mmol/L9 - 18 mmol/LCleveland ClinicAST [Catalytic activity/Vol]25 U/L13 - 35 U/L [facility] HospitalBilirubin [Mass/Vol]0.4 mg/dL0.2 - 1.3 mg/dLParkwood Hospital Calcium [Mass/Vol]9.9 mg/dL8.5 - 10.2 mg/dLSaint Louis ClinicChloride [Moles/Vol] 102 mmol/L97 - 105 mmol/LCleveland ClinicCO2 [Moles/Vol]26 mmol/L22 - 30 mmol/L [facility] HospitalCreatinine [Mass/Vol]0.69 mg/dL0.58 - 0.96 mg/dLParkwood Hospital GFR/1.73 sq M.predicted among non-blacks MDRD (S/P/Bld) [Vol rate/Area]104 mL/min/{1.73_m2}- PINFCleveland ClinicComment on above:Estimated Glomerular Filtration Rate (eGFR) is calculated using the 2020 CKD-EPI creatinine equation. This equation utilizes serum creatinine, sex, and age as parameters. The creatinine assay has traceable calibration to isotope dilution-mass spectrometry. Refer to KDIGO guidelines for clinical interpretation. In patients with unstable renal function, e.g. those with acute kidney injury, the eGFRmay not accurately reflect actual GFR.Glucose [Mass/Vol]113 mg/tASjno69 - 99 mg/dL [facility] HospitalComment on above:The [place] Diabetes Association (ADA) provides guidance for cutoff values for fasting glucose andrandom glucose. The ADA defines fasting as no caloric intake for at least 8 hours. Fasting plasma gl ucose results between 100 to 125 mg/dL indicate [...] Standards of Medical Care in Diabetes 2016, [place] Diabetes Association. Diabetes Care. 2016.39(Suppl 1). Interpretation and review of laboratory resultsAbnormalCleveland ClinicPotassium [Moles/Vol]4.0 mmol/L3.7 - 5.1 mmol/LCleveland ClinicProtein [Mass/Vol]7.6 g/dL 6.3 - 8.0 g/dLSaint Louis ClinicSodium [Moles/Vol]140 mmol/L136 - 144 mmol/L [facility] HospitalUrea nitrogen [Mass/Vol]16 mg/dL7 - 21 mg/dLCleveland ClinicNo Panel Informationon [id number] Study observation (narrative)[facility] panel Auto (Bld)on [id number] distribution width (RBC) [Ratio]13.6 %11.5 - 15.0 %[facility] HospitalHematocrit (Bld) [Volume fraction]38.1 %36.0 - 46.0 %[facility] HospitalHemoglobin (Bld) [Mass/Vol]12.7 g/dL11.5 - 15.5 g/dLHighland District HospitalH (RBC) [Entitic mass]29.9 pg26.0 - 34.0 pgClevelSandstone Critical Access HospitalHC (RBC) [Mass/Vol]33.3 g/dL30.5 - 36.0 g/dL [facility] HospitalMCV (RBC) [Entitic vol]89.6 fL80.0 - 100.0 fLClevelSt. Vincent Hospital Nucleated RBC (Bld) [#/Vol]<0.01 k/uLParkwood HospitalPlatelet mean volume (Bld) [Entitic vol]9.6 fL9.0 - 12.7 fLCleveland Aitkin HospitalPlatelets (Bld) [#/Vol]224 10*3/uL150 - 400 k/uLParkwood HospitalRBC (Bld) [#/Vol]4.25 10*6/uL3.90 - 5.20 m/[facility] HospitalWBC (Bld) [#/Vol]5.32 10*3/uL3.70 - 11.00 k/[facility] HospitalComprehensive metabolic 2000 panelon [id number] [Mass/Vol]4.6 g/dL 3.9 - 4.9 g/dLSaint Louis ClinicALP [Catalytic activity/Vol]88 U/L34 - 123 U/L [facility] HospitalT [Catalytic activity/Vol]19 U/L7 - 38 U/LCMercy Health Anion gap [Moles/Vol]10 mmol/L9 - 18 mmol/LCleveland ClinicAST [Catalytic activity/Vol]20 U/L13 - 35 U/LCleveland ClinicBilirubin [Mass/Vol]0.2 mg/dL0.2 - 1.3 mg/dLParkwood HospitalCalcium [Mass/Vol]9.5 mg/dL8.5 - 10.2 mg/dLParkwood HospitalChloride [Moles/Vol]100 mmol/L97 - 105 mmol/LCleveland ClinicCO2 [Moles/Vol]27 mmol/L22 - 30 mmol/LCleveland [facility]it[facility] HospitalCreatinine [Mass/Vol]0.62 mg/dL0.58 - 0.96 mg/dLParkwood HospitalEstimated Glomerular Filtration Qyjr135 mL/min/1.73m>=60 mL/min/1.73mCleveland Aitkin HospitalGlucose [Mass/Vol]104 mg/qMIjbu56 - 99 mg/dLParkwood HospitalPotassium [Moles/Vol]3.9 mmol/L3.7 - 5.1 mmol/L [facility] HospitalProtein [Mass/Vol]7.8 g/dL6.3 - 8.0 g/dLCleveland Clinic Avon Hospitalodium [Moles/Vol]137 mmol/L136 - 144 mmol/LCleveland Aitkin HospitalUrea nitrogen [Mass/Vol]17 mg/dL7 - 21 mg/dLOhioHealth Grant [facility] Center W Auto Differential panel (Bld)on [id number] (Bld) [#/Vol]<0.11 k/uLParkwood HospitalBasophils/100 WBC (Bld)0.2 %[facility] HospitalDifferential cell count method Nom (Bld)AutoCleveland ClinicEosinophils (Bld) [#/Vol]0.23 10*3/uL<0.46 k/uLParkwood Hospital Eosinophils/100 WBC (Bld)3.9 %[facility] HospitalErythrocyte distribution width (RBC) [Ratio]13.2 %11.5 - 15.0 %[facility] HospitalHematocrit (Bld) [Volume fraction]36.5 %36.0 - 46.0 %[facility] HospitalHemoglobin (Bld) [Mass/Vol]12.1 g/dL 11.5 - 15.5 g/dLParkwood HospitalImmature granulocytes (Bld) [#/Vol]<0.10 k/uL [facility] HospitalImmature granulocytes/100 WBC (Bld)0.2 %[facility] Lymphocytes (Bld) [#/Vol]0.50 10*3/uLLow1.00 - 4.00 k/uLParkwood Hospital Lymphocytes/100 WBC (Bld)8.4 %[facility] District HospitalH (RBC) [Entitic mass]29.8 pg 26.0 - 34.0 pgCChildren's Hospital of ColumbusHC (RBC) [Mass/Vol]33.2 g/dL30.5 - 36.0 g/dL [facility] District HospitalV (RBC) [Entitic vol]89.9 fL80.0 - 100.0 fLClevelSt. Vincent Hospital Monocytes (Bld) [#/Vol]0.39 10*3/uL<0.87 k/uLParkwood HospitalMonocytes/100 WBC (Bld)6.6 %[facility] HospitalNeutrophils (Bld) [#/Vol]4.81 10*3/uL1.45 - 7.50 k/uL [facility] HospitalNeutrophils/100 WBC (Bld)80.7 %[facility] HospitalNucleated RBC (Bld) [#/Vol]<0.01 k/uLParkwood HospitalNucleated RBC/100 WBC (Bld) [Ratio]0.0 /100 WBCParkwood HospitalPlatelet mean volume (Bld) [Entitic vol]9.2 fL9.0 - 12.7 fLCleveland ClinicPlatelets (Bld) [#/Vol]237 10*3/uL150 - 400 k/uLSaint Louis ClinicRBC (Bld) [#/Vol]4.06 10*6/uL3.90 - 5.20 m/uLParkwood HospitalWBC (Bld) [#/Vol]5.95 10*3/uL3.70 - 11.00 k/uLParkwood HospitalComprehensive metabolic 2000 panelon [id number] [Mass/Vol]4.5 g/dL3.9 - 4.9 g/dLSaint Louis ClinicALP [Catalytic activity/Vol]86 U/L34 - 123 U/LCleveland ClinicALT [Catalytic activity/Vol]18 U/L7 - 38 U/LCleveland ClinicAnion gap [Moles/Vol]9 mmol/L9 - 18 mmol/LCleveland ClinicAST [Catalytic activity/Vol]19 U/L13 - 35 U/LCleveland ClinicBilirubin [Mass/Vol]0.2 mg/dL0.2 - 1.3 mg/dLSaint Louis ClinicCalcium [Mass/Vol]9.4 mg/dL8.5 - 10.2 mg/dLSaint Louis ClinicChloride [Moles/Vol]101 mmol/L97 - 105 mmol/LCleveland ClinicCO2 [Moles/Vol]28 mmol/L22 - 30 mmol/L [facility] HospitalCreatinine [Mass/Vol]0.67 mg/dL0.58 - 0.96 mg/dLParkwood Hospital Estimated Glomerular Filtration Tmtz048 mL/min/1.73m>=60 mL/min/1.73mCleveland Aitkin HospitalGlucose [Mass/Vol]109 mg/vZVvpj50 - 99 mg/dLParkwood HospitalPotassium [Moles/Vol]4.2 mmol/L3.7 - 5.1 mmol/LCleveland ClinicProtein [Mass/Vol]7.5 g/dL 6.3 - 8.0 g/dLSaint Louis ClinicSodium [Moles/Vol]138 mmol/L136 - 144 mmol/L [facility] HospitalUrea nitrogen [Mass/Vol]17 mg/dL7 - 21 mg/dLOhioHealth Grant [facility] Center W Auto Differential panel (Bld)on [id number] (Bld) [#/Vol]<0.11 k/uL [facility] HospitalBasophils/100 WBC (Bld)0.3 %[facility] HospitalDifferential cell count method Nom (Bld)AutoCleveland ClinicEosinophils (Bld) [#/Vol]0.16 10*3/uL <0.46 k/uLParkwood HospitalEosinophils/100 WBC (Bld)2.6 %[facility] Erythrocyte distribution width (RBC) [Ratio]12.9 %11.5 - 15.0 %[facility] Hematocrit (Bld) [Volume fraction]37.4 %36.0 - 46.0 %[facility] HospitalHemoglobin (Bld) [Mass/Vol]12.6 g/dL11.5 - 15.5 g/dLParkwood HospitalImmature granulocytes (Bld) [#/Vol]0.03 10*3/uL<0.10 k/uLParkwood HospitalImmature granulocytes/100 WBC (Bld)0.5 %[facility] HospitalLymphocytes (Bld) [#/Vol]0.57 10*3/uLLow1.00 - 4.00 k/uLParkwood HospitalLymphocytes/100 WBC (Bld)9.4 %[facility] HospitalH (RBC) [Entitic mass]30.1 pg26.0 - 34.0 pgClevelSandstone Critical Access HospitalHC (RBC) [Mass/Vol]33.7 g/dL30.5 - 36.0 g/dLHighland District HospitalV (RBC) [Entitic vol]89.3 fL80.0 - 100.0 fLCleveland Aitkin HospitalMonocytes (Bld) [#/Vol]0.49 10*3/uL<0.87 k/uLPark[facility] Hospital Monocytes/100 WBC (Bld)8.1 %[facility] ClinicNeutrophils (Bld) [#/Vol]4.80 10*3/uL1.45 - 7.50 k/uLSaint Louis ClinicNeutrophils/100 WBC (Bld)79.1 %[facility] HospitalNucleated RBC (Bld) [#/Vol]<0.01 k/uLParkwood HospitalNucleated RBC/100 WBC (Bld) [Ratio]0.0 /100 WBCSaint Louis ClinicPlatelet mean volume (Bld) [Entitic vol]9.4 fL9.0 - 12.7 fLCleveland ClinicPlatelets (Bld) [#/Vol]218 10*3/uL150 - 400 k/uLSaint Louis ClinicRBC (Bld) [#/Vol]4.19 10*6/uL3.90 - 5.20 m/uLParkwood HospitalWBC (Bld) [#/Vol]6.07 10*3/uL3.70 - 11.00 k/uLPark[facility] Hospital Comprehensive metabolic 2000 panelon [id number] [Mass/Vol]4.5 g/dL3.9 - 4.9 g/dLSaint Louis ClinicALP [Catalytic activity/Vol]97 U/L34 - 123 U/LCleveland ClinicALT [Catalytic activity/Vol]18 U/L7 - 38 U/LCleveland ClinicAnion gap [Moles/Vol]9 mmol/L9 - 18 mmol/LCleveland ClinicAST [Catalytic activity/Vol]20 U/L13 - 35 U/LCleveland ClinicBilirubin [Mass/Vol]0.2 mg/dL0.2 - 1.3 mg/dL [facility] HospitalCalcium [Mass/Vol]9.4 mg/dL8.5 - 10.2 mg/dLParkwood Hospital Chloride [Moles/Vol]102 mmol/L97 - 105 mmol/LCleveland ClinicCO2 [Moles/Vol]28 mmol/L22 - 30 mmol/LCleveland ClinicCreatinine [Mass/Vol]0.66 mg/dL0.58 - 0.96 mg/dLParkwood HospitalEstimated Glomerular Filtration Tzwx172 mL/min/1.73m>=60 mL/min/1.73mCleveland Aitkin HospitalGlucose [Mass/Vol]95 mg/dL74 - 99 mg/dLParkwood HospitalPotassium [Moles/Vol]4.0 mmol/L3.7 - 5.1 mmol/LCleveland ClinicProtein [Mass/Vol]7.5 g/dL6.3 - 8.0 g/dLSaint Louis ClinicSodium [Moles/Vol]139 mmol/L136 - 144 mmol/LCleveland ClinicUrea nitrogen [Mass/Vol]19 mg/dL7 - 21 mg/dL [facility] W Auto Differential panel (Bld)on [id number] (Bld) [#/Vol]<0.11 k/uLParkwood HospitalBasophils/100 WBC (Bld)0.3 %[facility] Differential cell count method Nom (Bld)AutoCleveland ClinicEosinophils (Bld) [#/Vol]0.11 10*3/uL<0.46 k/uLParkwood HospitalEosinophils/100 WBC (Bld)3.0 % [facility] HospitalErythrocyte distribution width (RBC) [Ratio]12.4 %11.5 - 15.0 % [facility] HospitalHematocrit (Bld) [Volume fraction]39.1 %36.0 - 46.0 %[facility] HospitalHemoglobin (Bld) [Mass/Vol]13.1 g/dL11.5 - 15.5 g/dLPark[facility] Hospital Immature granulocytes (Bld) [#/Vol]<0.10 k/uLParkwood HospitalImmature granulocytes/100 WBC (Bld)0.5 %[facility] HospitalLymphocytes (Bld) [#/Vol]0.45 10*3/uLLow1.00 - 4.00 k/uLParkwood HospitalLymphocytes/100 WBC (Bld)12.3 % [facility] HospitalH (RBC) [Entitic mass]29.9 pg26.0 - 34.0 pgCleveland [facility] Hospital MCHC (RBC) [Mass/Vol]33.5 g/dL30.5 - 36.0 g/dLParkwood HospitalMCV (RBC) [Entitic vol]89.3 fL80.0 - 100.0 fLCleveland Aitkin HospitalMonocytes (Bld) [#/Vol]0.32 10*3/uL <0.87 k/uLParkwood HospitalMonocytes/100 WBC (Bld)8.8 %[facility] Neutrophils (Bld) [#/Vol]2.74 10*3/uL1.45 - 7.50 k/uLPark[facility] Hospital Neutrophils/100 WBC (Bld)75.1 %[facility] HospitalNucleated RBC (Bld) [#/Vol]<0.01 k/uLParkwood HospitalNucleated RBC/100 WBC (Bld) [Ratio]0.0 /100 WBCSaint Louis ClinicPlatelet mean volume (Bld) [Entitic vol]10.1 fL9.0 - 12.7 fLCleveland ClinicPlatelets (Bld) [#/Vol]186 10*3/uL150 - 400 k/uLSaint Louis ClinicRBC (Bld) [#/Vol]4.38 10*6/uL3.90 - 5.20 m/uLSaint Louis ClinicWBC (Bld) [#/Vol]3.65 10*3/uL Low3.70 - 11.00 k/uLParkwood HospitalComprehensive metabolic 2000 panelon [id number] [Mass/Vol]4.5 g/dL3.9 - 4.9 g/dLSaint Louis ClinicALP [Catalytic activity/Vol]88 U/L34 - 123 U/LCleveland ClinicALT [Catalytic activity/Vol]15 U/L7 - 38 U/LCleveland ClinicAnion gap [Moles/Vol]9 mmol/L9 - 18 mmol/LCleveland ClinicAST [Catalytic activity/Vol]19 U/L13 - 35 U/LCleveland ClinicBilirubin [Mass/Vol]0.3 mg/dL0.2 - 1.3 mg/dLSaint Louis ClinicCalcium [Mass/Vol]9.4 mg/dL8.5 - 10.2 mg/dLClecommunity memorial hospital ClinicChloride [Moles/Vol]99 mmol/L97 - 105 mmol/L [place] ClinicCO2 [Moles/Vol]28 mmol/L22 - 30 mmol/LCleveland ClinicCreatinine [Mass/Vol]0.65 mg/dL0.58 - 0.96 mg/dLParkwood HospitalEstimated Glomerular Filtration Tlym994 mL/min/1.73m>=60 mL/min/1.73mCleveland ClinicGlucose [Mass/Vol]113 mg/fYDjke33 - 99 mg/dLParkwood HospitalPotassium [Moles/Vol]4.0 mmol/L3.7 - 5.1 mmol/LCleveland ClinicProtein [Mass/Vol]7.5 g/dL6.3 - 8.0 g/dL [facility] [place] ClinicSodium [Moles/Vol]136 mmol/L136 - 144 mmol/LCleveland ClinicUrea nitrogen [Mass/Vol]19 mg/dL7 - 21 mg/dLParkwood HospitalCB W Auto Differential panel (Bld)on [id number] (Bld) [#/Vol]0.03 10*3/uL<0.11 k/uLParkwood HospitalBasophils/100 WBC (Bld)0.4 %[facility] HospitalDifferential cell count method Nom (Bld)AutoCleveland ClinicEosinophils (Bld) [#/Vol]0.08 10*3/uL<0.46 k/uL [facility] HospitalEosinophils/100 WBC (Bld)1.1 %[facility] HospitalErythrocyte distribution width (RBC) [Ratio]12.4 %11.5 - 15.0 %[facility] HospitalHematocrit (Bld) [Volume fraction]41.7 %36.0 - 46.0 %[facility] HospitalHemoglobin (Bld) [Mass/Vol]14.0 g/dL11.5 - 15.5 g/dLParkwood HospitalImmature granulocytes (Bld) [#/Vol]<0.10 k/uLParkwood HospitalImmature granulocytes/100 WBC (Bld)0.1 % [facility] HospitalLymphocytes (Bld) [#/Vol]1.64 10*3/uL1.00 - 4.00 k/uLParkwood HospitalLymphocytes/100 WBC (Bld)22.5 %[facility] HospitalH (RBC) [Entitic mass] 29.8 pg26.0 - 34.0 pgCleveland Lake View Memorial HospitalHC (RBC) [Mass/Vol]33.6 g/dL30.5 - 36.0 g/dLHighland District HospitalV (RBC) [Entitic vol]88.7 fL80.0 - 100.0 fLCleveland ClinicMonocytes (Bld) [#/Vol]0.37 10*3/uL<0.87 k/uLSaint Louis ClinicMonocytes/100 WBC (Bld)5.1 %[facility] [place] ClinicNeutrophils (Bld) [#/Vol]5.15 10*3/uL1.45 - 7.50 k/uLSaint Louis ClinicNeutrophils/100 WBC (Bld)70.8 %[facility] [place] ClinicNucleated RBC (Bld) [#/Vol]<0.01 k/uLSaint Louis ClinicNucleated RBC/100 WBC (Bld) [Ratio]0.0 /100 WBCSaint Louis ClinicPlatelet mean volume (Bld) [Entitic vol]10.6 fL9.0 - 12.7 fLCleveland ClinicPlatelets (Bld) [#/Vol]259 10*3/uL150 - 400 k/uLSaint Louis ClinicRBC (Bld) [#/Vol]4.70 10*6/uL3.90 - 5.20 m/uLSaint Louis ClinicWBC (Bld) [#/Vol]7.28 10*3/uL3.70 - 11.00 k/uLParkwood HospitalComprehensive metabolic 2000 panelon [id number] [Mass/Vol]4.5 g/dL3.9 - 4.9 g/dLSaint Louis ClinicALP [Catalytic activity/Vol]88 U/L34 - 123 U/LCleveland ClinicALT [Catalytic activity/Vol]16 U/L7 - 38 U/LCleveland ClinicAnion gap [Moles/Vol]10 mmol/L9 - 18 mmol/LCleveland ClinicAST [Catalytic activity/Vol][facility] ClinicBilirubin [Mass/Vol]0.3 mg/dL0.2 - 1.3 mg/dLSaint Louis ClinicCalcium [Mass/Vol]9.7 mg/dL8.5 - 10.2 mg/dLSaint Louis ClinicChloride [Moles/Vol]99 mmol/L97 - 105 mmol/L [facility] [place] ClinicCO2 [Moles/Vol]24 mmol/L22 - 30 mmol/LCleveland ClinicCreatinine [Mass/Vol]0.68 mg/dL0.58 - 0.96 mg/dLParkwood HospitalEstimated Glomerular Filtration Vwry552 mL/min/1.73m>=60 mL/min/1.73mCleveland ClinicGlucose [Mass/Vol]136 mg/qLIiud57 - 99 mg/dLParkwood HospitalPotassium [Moles/Vol]4.1 mmol/L3.7 - 5.1 mmol/LCleveland ClinicProtein [Mass/Vol]7.7 g/dL6.3 - 8.0 g/dL [facility] Av[facility] Hospitalodium [Moles/Vol]133 mmol/WPme696 - 144 mmol/LCleveland [facility] Urea nitrogen [Mass/Vol]16 mg/dL7 - 21 mg/dLParkwood HospitalConsultation Noteon [id number] [id number]#1.00CD:127 [facility] W Auto Differential panel (Bld)on 51-72-5003Jjnhqhcsc (Bld) [#/Vol]<0.11 k/uLParkwood HospitalBasophils (Bld) [#/Vol]NINFClevelSt. Vincent HospitalBasophils/100 WBC (Bld)0.2 %[facility] Differential cell count method Nom (Bld)AutoCleveland ClinicEosinophils (Bld) [#/Vol]0.06 10*3/uLNINFParkwood HospitalEosinophils/100 WBC (Bld)0.7 %[facility] HospitalErythrocyte distribution width (RBC) [Ratio]12.8 %11.5 - 15.0 %[facility] HospitalHematocrit (Bld) [Volume fraction]40.8 %36.0 - 46.0 %[facility] Hemoglobin (Bld) [Mass/Vol]13.7 g/dL11.5 - 15.5 g/dLParkwood HospitalImmature granulocytes (Bld) [#/Vol]<0.10 k/uLParkwood HospitalImmature granulocytes (Bld) [#/Vol]NINFClevelSt. Vincent HospitalImmature granulocytes/100 WBC (Bld)0.2 %[facility] HospitalLymphocytes (Bld) [#/Vol]1.43 10*3/uLParkwood HospitalLymphocytes/100 WBC (Bld)17.4 %[facility] HospitalMCH (RBC) [Entitic mass]30.2 pg26.0 - 34.0 pg [facility] HospitalMCHC (RBC) [Mass/Vol]33.6 g/dL30.5 - 36.0 g/dLParkwood Hospital MCV (RBC) [Entitic vol]89.9 fL80.0 - 100.0 fLCleveland ClinicMonocytes (Bld) [#/Vol]0.35 10*3/uLNINFParkwood HospitalMonocytes/100 WBC (Bld)4.3 %[facility] HospitalNeutrophils (Bld) [#/Vol]6.34 10*3/uLParkwood HospitalNeutrophils/100 WBC (Bld)77.2 %[facility] HospitalNucleated RBC (Bld) [#/Vol]<0.01 k/[facility] Nucleated RBC (Bld) [#/Vol]NINFClevelSt. Vincent HospitalNucleated RBC/100 WBC (Bld) [Ratio]0.0 /100 WBCParkwood HospitalNucleated RBC/100 WBC (Bld) [Ratio]0.0 %/100 WBCParkwood HospitalPlatelet mean volume (Bld) [Entitic vol]9.9 fL9.0 - 12.7 fL [facility] HospitalPlatelets (Bld) [#/Vol]328 10*3/uLParkwood HospitalRBC (Bld) [#/Vol]4.54 10*6/uL3.90 - 5.20 m/[facility] HospitalWBC (Bld) [#/Vol]8.22 10*3/uL [facility] HospitalThis is an appended report. These results have been appended to a previously verified report.[facility] NorthComprehensive metabolic 2000 panelOrdered By: Mando Underwood on 23-26-3963Zfmlugk [Mass/Vol]4.6 g/dL3.9 - 4.9 g/dLSaint Louis ClinicALP [Catalytic activity/Vol]87 U/L34 - 123 U/L [facility] ClinicALT [Catalytic activity/Vol]14 U/L7 - 38 U/LCleveland [facility] Anion gap [Moles/Vol]8 mmol/LLow9 - 18 mmol/LCleveland ClinicAST [Catalytic activity/Vol]22 U/L13 - 35 U/LCleveland ClinicBilirubin [Mass/Vol]0.2 mg/dL0.2 - 1.3 mg/dLClecommunity memorial hospital ClinicCalcium [Mass/Vol]9.1 mg/dL8.5 - 10.2 mg/dLCleveland ClinicChloride [Moles/Vol]99 mmol/L97 - 105 mmol/LCleveland ClinicCO2 [Moles/Vol]29 mmol/L22 - 30 mmol/LCleveland ClinicCreatinine [Mass/Vol]0.70 mg/dL0.58 - 0.96 mg/dLClecommunity memorial hospital ClinicGFR/1.73 sq M.predicted among non-blacks MDRD (S/P/Bld) [Vol rate/Area]104 mL/min/{1.73_m2}- PINFCleveland ClinicComment on above:Estimated Glomerular Filtration Rate (eGFR) is calculated using the 2020 CKD-EPI creatinine equation. This equation utilizes serum creatinine, sex, and age as parameters. The creatinine assay has traceable calibration to isotope dilution-mass spectrometry. Refer to KDIGO guidelines for clinical inte rpretation. In patients with unstable renal function, e.g. those with acute kidney injury, the eGFRmay not accurately reflect actual GFR.Glucose [Mass/Vol] 128 mg/eXJeeh68 - 99 mg/dLSaint Louis ClinicComment on above:The [place] Diabetes Association (ADA) provides guidance for cutoff [...] Standards of Medical Care in Diabetes 2016, [place] [employer]. Diabetes Care. 2016.39(Suppl 1). Interpretation and review of laboratory resultsAbnormalCleveland ClinicPotassium [Moles/Vol]3.8 mmol/L3.7 - 5.1 mmol/LCleveland ClinicProtein [Mass/Vol]7.7 g/dL 6.3 - 8.0 g/dLCleveland ClinicSodium [Moles/Vol]136 mmol/L136 - 144 mmol/L [place] ClinicUrea nitrogen [Mass/Vol]16 mg/dL7 - 21 mg/dLCleveland ClinicComprehensive metabolic 2000 panelon [id number] Glomerular Filtration Enoj624 mL/min/1.73m>=60 mL/min/1.73[facility] HospitalCT Abdomen W contrast John [id number]: 1. No evidence of metastatic disease within [...] any questions regarding this interpretation, please call [phone]. If you are unable to reach us at the number above, please feel free to contact [facility] eRadiology at [phone].DIVISION OF RADIOLOGY* * *Final Report* * * DATE OF EXAM: May 21 2022 9:24AM [facility] 0533 - CT ABDOMEN W IVCON / [...] chest CT performed will be reported separately. Scudding Inspector (topogram) images: Unremarkable. DIVISION OF RADIOLOGYProvider, [facility] [place] - 05/21/2022 * * *Final Report* * * DATE OF EXAM: May 21 2022 9:24AM [facility] 0533 - CT ABDOMEN W IVCON / [...] chest CT performed will be reported separately. Scudding Inspector (topogram) images: Unremarkable. IMPRESSION IMPRESSION: 1. No [...] any questions regarding this interpretation, please call [phone]. If you are unable to reach us at the number above, please feel free to contact [facility] eRadiology at [phone]. [facility] NorthCT Chest W contrast John [id number]: 1. Nonspecific noncalcified pulmonary nodules measuring up [...] any questions regarding this interpretation, please call [phone]. If you are unable to reach us at the number above, please feel free to contact [facility] eRadiology at [phone].DIVISION OF RADIOLOGY* * *Final Report* * * DATE OF EXAM: May 21 2022 9:24AM [facility] 0539 - CT CHEST W IVCON / [...] for findings related to the upper abdomen. Scudding Inspector (topogram) images: No additional findings. DIVISION OF RADIOLOGYProvider, [facility] [place] - 05/21/2022 * * *Final Report* * * DATE OF EXAM: May 21 2022 9:24AM [facility] 0539 - CT CHEST W IVCON / [...] for findings related to the upper abdomen. Scudding Inspector (topogram) images: No additional findings. IMPRESSION IMPRESSION: [...] any questions regarding this interpretation, please call [phone]. If you are unable to reach us at the number above, please feel free to contact [facility] eRadiology at [phone]. [facility] Chest W contrast IVOrdered By: Ccf Provider on 05-21-2022 Park[facility] HospitalNo Panel Informationon [id number] Study observation (narrative)[facility] HospitalPathology Noteon [id number] Note [id number]#1.00CD:127NormalOhio [facility] W Auto Differential panel (Bld)on [id number] (Bld) [#/Vol] 10*3/uLNormal<0.11Avon HospitalComment on above:Order Comment: Specimen Type: BLOOD SPECIMEN Ordering Facility: [facility] Address: [address] [place], [place] [address]Performed By: #### [id number] #### [facility] [place] [id number] [address] [place] [address] [place] AMERICABasophils/100 WBC (Bld)0.3 %NormalAv HospitalComment on above:Order Comment: Specimen Type: BLOOD SPECIMEN Ordering Facility: [facility] Address: [address] [place], [place] [address]Performed By: #### [id number] #### [facility] [place] [id number] [address] [place] [address] [place] AMERICADifferential cell count method Nom (Bld) AutoNormalAvon HospitalComment on above:Order Comment: Specimen Type: BLOOD SPECIMEN Ordering Facility: [facility] Address: [address] [place], [place] [address]Performed By: #### [id number] #### [facility] [place] [id number] [address] [place] [address] [place] AMERICAEosinophils (Bld) [#/Vol]0.05 10*3/uL Normal<0.46Avon HospitalComment on above:Order Comment: Specimen Type: BLOOD SPECIMEN Ordering Facility: [facility] Address: [address] [place], [place] [id number] By: #### [id number] #### [facility] [place] [id number] [address] [place] [address] [place] AMERICAEosinophils/100 WBC (Bld)0.7 %NormalAv HospitalComment on above:Order Comment: Specimen Type: BLOOD SPECIMEN Ordering Facility: [facility] Address: [address] [place], [place] [address]Performed By: #### [id number] #### [facility] [place] [id number] [address] [place] [address] [place] AMERICAErythrocyte distribution width (RBC) [Ratio]12.7 %Cvrtvm44.5-15.0Av HospitalComment on above:Order Comment: Specimen Type: BLOOD SPECIMEN Ordering Facility: [facility] Address: [address] [place], [place] [address]Performed By: #### 21146-3 #### [facility] [place] [id number] [place] [address] [place] OF AMERICAHematocrit (Bld) [Volume fraction]43.0 % Vjcgbc12.0-46.0Av HospitalComment on above:Order Comment: Specimen Type: BLOOD SPECIMEN Ordering Facility: [facility] Address: [address] [place], [place] [address]Performed By: #### 47165-5 #### [facility] [id number] [address] [place] [address] [place] AMERICAHemoglobin (Bld) [Mass/Vol]13.5 g/dL Uipkkk73.5-15.5Avon HospitalComment on above:Order Comment: Specimen Type: BLOOD SPECIMEN Ordering Facility: [facility] Address: [address] [place], [place] [address]Performed By: #### 38052-9 #### [facility] [id number] [address] [place] [address] [place] AMERICAImmature granulocytes (Bld) [#/Vol] 10*3/uLNormal<0.10Avon HospitalComment on above:Order Comment: Specimen Type: BLOOD SPECIMEN Ordering Facility: [facility] Address: [address] [place], [place] [address]Performed By: #### 46107-1 #### [facility] IA [id number] [address] [place] [address] [place] AMERICAImmature granulocytes/100 WBC (Bld)0.3 % NormalAv HospitalComment on above:Order Comment: Specimen Type: BLOOD SPECIMEN Ordering Facility: [facility] Address: [address] [place], [place] [address]Performed By: #### 79292-8 #### [facility] [place] [id number] [address] [place] [address] [place] AMERICALymphocytes (Bld) [#/Vol]1.40 10*3/uL Normal1.00-4.00Av HospitalComment on above:Order Comment: Specimen Type: BLOOD SPECIMEN Ordering Facility: [facility] Address: [address] [place], [place] [address]Performed By: #### 66594-0 #### [facility] [place] [id number] [address] [place] [address] [place] AMERICALymphocytes/100 WBC (Bld)20.6 %NormalAv HospitalComment on above:Order Comment: Specimen Type: BLOOD SPECIMEN Ordering Facility: [facility] Address: [address] [place], [place] [address]Performed By: #### 05585-4 #### [facility] [place] [id number] [address] [facility] (RBC) [Entitic mass]29.2 pgNormal 26.0-34.0Av HospitalComment on above:Order Comment: Specimen Type: BLOOD SPECIMEN Ordering Facility: [facility] Address: [address] [place], [place] [address]Performed By: #### 86788-6 #### [facility] IA [id number] [address] [place] [address] [facility] (RBC) [Mass/Vol]31.4 g/dLNormal 30.5-36.0Av HospitalComment on above:Order Comment: Specimen Type: BLOOD SPECIMEN Ordering Facility: [facility] Address: [address] [place], [place] [address]Performed By: #### 50740-1 #### [facility] [place] [id number] [place] [address] [place] AMERICAMCV (RBC) [Entitic vol]92.9 fLNormal 80.0-100.0Av HospitalComment on above:Order Comment: Specimen Type: BLOOD SPECIMEN Ordering Facility: [facility] Address: [address] [place], [place] [address]Performed By: #### 05386-6 #### [facility] [place] [id number] [place] [address] [place] AMERICAMonocytes (Bld) [#/Vol]0.48 10*3/uLNormal <0.87Av HospitalComment on above:Order Comment: Specimen Type: BLOOD SPECIMEN Ordering Facility: [facility] Address: [address] [place], [place] [address]Performed By: #### 90482-5 #### [facility] [id number] [address] [place], [place] [id number] [place] AMERICAMonocytes/100 WBC (Bld)7.1 %NormalAv HospitalComment on above:Order Comment: Specimen Type: BLOOD SPECIMEN Ordering Facility: [facility] Address: [address] [place], [place] [address]Performed By: #### 08949-1 #### [facility] [place] [id number] [place] [address] [place] AMERICANeutrophils (Bld) [#/Vol]4.81 10*3/uL Normal1.45-7.50Av HospitalComment on above:Order Comment: Specimen Type: BLOOD SPECIMEN Ordering Facility: [facility] Address: [address] [place], [place] [address]Performed By: #### 74043-3 #### [facility] [place] [id number] [address] [place] [address] [place] AMERICANeutrophils/100 WBC (Bld)71.0 %NormalAv HospitalComment on above:Order Comment: Specimen Type: BLOOD SPECIMEN Ordering Facility: [facility] Address: [address] [place], [place] [address]Performed By: #### 79070-9 #### [facility] [place] [id number] [address] [facility] [address] [place] AMERICANucleated RBC (Bld) [#/Vol]10*3/uLNormal <0.01Avon HospitalComment on above:Order Comment: Specimen Type: BLOOD SPECIMEN Ordering Facility: [facility] Address: [address] [place], [place] [address]Performed By: #### 93459-9 #### [facility] [place] [id number] [address] [place] [address] [place] AMERICANucleated RBC/100 WBC (Bld) [Ratio]0.0 /100 WBCNormalAvon HospitalComment on above:Order Comment: Specimen Type: BLOOD SPECIMEN Ordering Facility: [facility] Address: [address] [place], [place] [address]Performed By: #### 95102-2 #### [facility] [place] [id number] [address] [facility] [address] [place] AMERICAPlatelet mean volume (Bld) [Entitic vol] 10.5 fLNormal9.0-12.7Avon HospitalComment on above:Order Comment: Specimen Type: BLOOD SPECIMEN Ordering Facility: [facility] Address: [address] [place], [place] [address]Performed By: #### 73217-0 #### [facility] [place] [id number] [address] [facility] [address] [place] AMERICAPlatelets (Bld) [#/Vol]305 10*3/uLNormal 150-400Avon HospitalComment on above:Order Comment: Specimen Type: BLOOD SPECIMEN Ordering Facility: [facility] Address: [address] [place], [place] [address]Performed By: #### 80163-0 #### [facility] [place] [id number] [address] [facility] [address] [place] AMERICARBC (Bld) [#/Vol]4.63 10*6/uLNormal 3.90-5.20Av HospitalComment on above:Order Comment: Specimen Type: BLOOD SPECIMEN Ordering Facility: [facility] Address: [address] [place], [place] [address]Performed By: #### 54110-1 #### [facility] IA [id number] [address] AMERICAWBC (Bld) [#/Vol]6.78 10*3/uLNormal 3.70-11.00Av HospitalComment on above:Order Comment: Specimen Type: BLOOD SPECIMEN Ordering Facility: [facility] Address: [address] [place], [place] [address]Performed By: #### 69816-1 #### [facility] IA [id number] [address] [address]ophils (Bld) [#/Vol]<0.11 k/uL [facility] HospitalBasophils/100 WBC (Bld)0.3 %Park[facility] HospitalDifferential cell count method Nom (Bld)AutoCleveland ClinicEosinophils (Bld) [#/Vol]0.05 10*3/uL <0.46 k/uLSaint Louis ClinicEosinophils/100 WBC (Bld)0.7 %[facility] Erythrocyte distribution width (RBC) [Ratio]12.7 %11.5 - 15.0 %[facility] Hematocrit (Bld) [Volume fraction]43.0 %36.0 - 46.0 %[facility] HospitalHemoglobin (Bld) [Mass/Vol]13.5 g/dL11.5 - 15.5 g/dLParkwood HospitalImmature granulocytes (Bld) [#/Vol]<0.10 k/uLParkwood HospitalImmature granulocytes/100 WBC (Bld)0.3 % Parkwood HospitalLymphocytes (Bld) [#/Vol]1.40 10*3/uL1.00 - 4.00 k/uLParkwood HospitalLymphocytes/100 WBC (Bld)20.6 %[facility] HospitalH (RBC) [Entitic mass] 29.2 pg26.0 - 34.0 pgClevelSandstone Critical Access HospitalHC (RBC) [Mass/Vol]31.4 g/dL30.5 - 36.0 g/dLHighland District HospitalV (RBC) [Entitic vol]92.9 fL80.0 - 100.0 fLCleveland ClinicMonocytes (Bld) [#/Vol]0.48 10*3/uL<0.87 k/uLSaint Louis ClinicMonocytes/100 WBC (Bld)7.1 %[facility]wood HospitalNeutrophils (Bld) [#/Vol]4.81 10*3/uL1.45 - 7.50 k/uLParkwood HospitalNeutrophils/100 WBC (Bld)71.0 %[facility] HospitalNucleated RBC (Bld) [#/Vol]<0.01 k/uLParkwood HospitalNucleated RBC/100 WBC (Bld) [Ratio]0.0 /100 WBCParkwood HospitalPlatelet mean volume (Bld) [Entitic vol]10.5 fL9.0 - 12.7 fLClevelunc health ClinicPlatelets (Bld) [#/Vol]305 10*3/uL150 - 400 k/uLParkwood HospitalRBC (Bld) [#/Vol]4.63 10*6/uL3.90 - 5.20 m/[facility] HospitalWBC (Bld) [#/Vol]6.78 10*3/uL3.70 - 11.00 k/uLParkwood HospitalComprehensive metabolic 2000 panelon 64-59-0411Izebwco [Mass/Vol]4.7 g/dLNormal3.9-4.9Avon HospitalComment on above:Order Comment: Specimen Type: BLOOD SPECIMEN Order[facility] Facility: [facility] Address: [address] [place] [address] [place] [address]Tqdkhcnxr By: #### 49497-9 #### [facility] CLIA [id number] [address] [facility] [address] [place] AMERICAALP [Catalytic activity/Vol]88 U/LNormal 34-123Avon HospitalComment on above:Order Comment: Specimen Type: BLOOD SPECIMEN Ordering Facility: [facility] Address: [address] [place], [place] [address]Performed By: #### 76485-7 #### [facility] IA [id number] [address] [place] [address] [place] AMERICAALT [Catalytic activity/Vol]17 U/LNormal 7-38Av HospitalComment on above:Order Comment: Specimen Type: BLOOD SPECIMEN Ordering Facility: [facility] Address: [address] [place], [place] [address]Performed By: #### 83440-2 #### [facility] IA [id number] [address] [place] [address] [place] AMERICAAnion gap [Moles/Vol]9 mmol/LNormal9-18 [facility] HospitalComment on above:Order Comment: Specimen Type: BLOOD SPECIMEN Ordering Facility: [facility] Address: [address] [place], [place] [address]Performed By: #### 48794-6 #### [facility] IA [id number] [address] [place] [address] [place] AMERICAAST [Catalytic activity/Vol]20 U/LNormal 13-35Av HospitalComment on above:Order Comment: Specimen Type: BLOOD SPECIMEN Ordering Facility: [facility] Address: [address] [place], [place] [address]Performed By: #### 89983-4 #### [facility] IA [id number] [address] [place] [address] [place] AMERICABilirubin [Mass/Vol]0.3 mg/dLNormal 0.2-1.3Avon HospitalComment on above:Order Comment: Specimen Type: BLOOD SPECIMEN Ordering Facility: [facility] Address: [address] [place], [place] [address]Performed By: #### 81904-9 #### [facility] IA [id number] [address] [place] [address] [place] AMERICACalcium [Mass/Vol]9.5 mg/dLNormal8.5-10.2 [facility] HospitalComment on above:Order Comment: Specimen Type: BLOOD SPECIMEN Ordering Facility: [facility] Address: [address] [place], [place] [address]Performed By: #### 92260-2 #### [facility] CLIA [id number] [address] [place] [address] [place] AMERICAChloride [Moles/Vol]101 mmol/LNormal 97-105Av HospitalComment on above:Order Comment: Specimen Type: BLOOD SPECIMEN Order[facility] Facility[facility] Address: [address] [place], [place] [address]Performed By: #### 16170-9 #### [facility] CLIA [id number] [address] [place] [address] [place] AMERICACO2 [Moles/Vol]28 mmol/HRpyimy79-76Brtf HospitalComment on above:Order Comment: Specimen Type: BLOOD SPECIMEN Ordering Facility: [facility] Address: [address] [place], [place] [address]Performed By: #### 00003-9 #### [facility] CLIA [id number] [address] [place] [address] [place] AMERICACreatinine [Mass/Vol]0.75 mg/dLNormal 0.58-0.96[facility] HospitalComment on above:Order Comment: Specimen Type: BLOOD SPECIMEN Ordering Facility: [facility] Address: [address] [place], [place] [address]Performed By: #### 47988-3 #### [facility] CLIA [id number] [address] [place] [address] [place] AMERICAESTIMATED GLOMERULAR FILTRATION RATE95 mL/min/1.73m???Normal>=60Av HospitalComment on above:Order Comment: Specimen Type: BLOOD SPECIMEN Ordering Facility: [facility] Address: [address] [place], [place] [address]Result Comment: Estimated Glomerular Filtration Rate (eGFR) is calculated using the 2020 CKD-EPI cre atinine equation. This equation utilizes serum creatinine, sex, and age as parameters. The creatinine assay has traceable calibration to isotope dilution- mass spectrometry. Refer to KDIGO guidelines for clinical interpretation. In patients with unstable renal function, e.g. those with acute kidney injury, the eGFR may not accurately reflect actual GFR.Performed By: #### 88442-6 #### [facility] CLIA [id number] [address] [place] [address] [place] AMERICAGlucose [Mass/Vol]116 mg/eNMsjq41-26Tqdu HospitalComment on above:Order Comment: Specimen Type: BLOOD SPECIMEN Ordering Facility: [facility] Address: [address] [place], [place] [id number] Comment: The [place] Diabetes Association (ADA) provides guidance for cutoff [...] Standards of Medical Care in Diabetes 2016, [place] Diabetes Association. Diabetes Care. 2016.39(Suppl 1).Performed By: #### 66492-6 #### [facility] CLIA [id number] [address] [place] [address] [place] AMERICAPotassium [Moles/Vol]4.5 mmol/LNormal 3.7-5.1[facility] HospitalComment on above:Order Comment: Specimen Type: BLOOD SPECIMEN Ordering Facility: [facility] Address: [address] [place] [address]Zsikfwlch By: #### 92976-6 #### [facility] CLIA [id number] [address] [place] [address] [place] AMERICAProtein [Mass/Vol]8.0 g/dLNormal6.3-8.0 [facility] HospitalComment on above:Order Comment: Specimen Type: BLOOD SPECIMEN Ordering Facility: [facility] Address: [address] [place], [place] [address]Performed By: #### 36984-9 #### [facility] IA [id number] [address] [place] [address] [place] AMERICASodium [Moles/Vol]138 mmol/XGvkyla468-416 [facility] HospitalComment on above:Order Comment: Specimen Type: BLOOD SPECIMEN Ordering Facility: [facility] Address: [address] [place], [place] [address]Performed By: #### 90898-6 #### [facility] IA [id number] [address] [place] [address] [place] AMERICAUrea nitrogen [Mass/Vol]16 mg/dLNormal 7-21Lakeview HospitalComment on above:Order Comment: Specimen Type: BLOOD SPECIMEN Ordering Facility: [facility] Address: [address] [place], [place] [address]Performed By: #### 19732-7 #### [facility] IA [id number] [address] [place] [address] [place] AMERICAAlbumin [Mass/Vol]4.7 g/dL3.9 - 4.9 g/dL [facility] ClinicALP [Catalytic activity/Vol]88 U/L34 - 123 U/LCleveland [facility] ALT [Catalytic activity/Vol]17 U/L7 - 38 U/LCleveland ClinicAnion gap [Moles/Vol]9 mmol/L9 - 18 mmol/LCleveland ClinicAST [Catalytic activity/Vol]20 U/L13 - 35 U/LCleveland ClinicBilirubin [Mass/Vol]0.3 mg/dL0.2 - 1.3 mg/dL [facility] ClinicCalcium [Mass/Vol]9.5 mg/dL8.5 - 10.2 mg/dLParkwood Hospital Chloride [Moles/Vol]101 mmol/L97 - 105 mmol/LCleveland ClinicCO2 [Moles/Vol]28 mmol/L22 - 30 mmol/LCleveland ClinicCreatinine [Mass/Vol]0.75 mg/dL0.58 - 0.96 mg/dLParkwood HospitalEstimated Glomerular Filtration Rate95 mL/min/1.73m>=60 mL/min/1.73mCleveland ClinicGlucose [Mass/Vol]116 mg/iSGhyr81 - 99 mg/dL [facility] HospitalPotassium [Moles/Vol]4.5 mmol/L3.7 - 5.1 mmol/LC[facility] Protein [Mass/Vol]8.0 g/dL6.3 - 8.0 g/dLCleveland Clinic Avon Hospitalodium [Moles/Vol]138 mmol/L136 - 144 mmol/LCleveland ClinicUrea nitrogen [Mass/Vol]16 mg/dL7 - 21 mg/dLParkwood HospitalOutside Flexible Sigmoidoscopyon 64-06-7270Jpriobt Flexible [id number]#1.00CD:127NormKettering Health SpringfieldPREG HCG QUALon 54-56-0233MWSJUJWGN, QUALNegativeNormal NEGATIVEThe St. Anthony'S HospitalComment on above:Performed By: #### PREG #### [facility] [address] [place] [address] Dr. Kirby EspinozaLab Reportson 89-98-5501Wzx Reports [id number]#1.00CD:127NoUC HealthCovid-19 PCR (CVDTBH)on 63-55-3359JPVU-CoV-2 (COVID-19) RNA SUSAN+probe Ql (Unsp spec)Not detectedNormalNOT DETECTEDThe St. Anthony'S HospitalComment on above: Result Comment: This test is not yet approved or cleared by the [place] FDA. When there are no FDA-approved or cleared tests available, and other criteria are met, FDA can make tests available under an emergency access mechanism called an Emergency Use Authorization (EUA). The EUA for this test is supported by the [place] of Health and Human Service's (HHS's) declaration [...] of clinical signs and symptoms consistent with SARS-CoV-2.Performed By: #### CVDTBH #### [facility] [address] [place] [address] [address] Kirby EspinozaProvider Letter FTon 55-53-0883Vfkcmelg Letter [facility] March 26, [address] [place] [id number] KIRT REYNA 1970 Dear Kirt, We have been trying to reach you with no success. It is important that you return our call regarding your colonoscopy upon receiving this letter. We feel it's very important to your health to proceedwith recommended procedure. If you have decided to seek care or second opinion elsewhere, please notify our office. Otherwise, please call to reschedule your colonoscopy. Thank you for your prompt attention to this matter. Sincerely, Dr. Vitaly Vaughn MD General SurgeryNoUC HealthConsent for Procedure/Surgeryon [id number] for Procedure/Surgery [id number]#1.00CD:[address] [place], [place] [address]Physician Referralon 66-79-5505Fgmhufwcg Referral [id number]:[address] [place], [place] [address]CBC AUTO DIFFon 54-50-0040RXSP #0.0 103/ulNormal0.0-0.1The St. Anthony'S HospitalComment on above:Performed By: #### CBC #### [facility] [address] [address] [address] Kirby EspinozaBasophils/100 WBC (Bld)0.3 %Normal0.2-2.0The [facility] Comment on above:Performed By: #### CBC #### [facility] [address] [place] [address] Dr. Kirby Mckeon #0.1 103/ulNormal0.0-0.7The St. Anthony'S HospitalComment on above: Performed By: #### CBC #### [facility] [address] [place] [address] Dr. Kirby Saldanaosinophils/100 WBC (Bld)1.5 %Normal0.9-7.0The [facility] Comment on above:Performed By: #### CBC #### [facility] [address] [place] [address] Dr. Kirby Saldanarythrocyte distribution width (RBC) [Ratio]12.7 %Chptgd53.0-15.[address] Anthony'S HospitalComment on above:Performed By: #### CBC #### [facility] [address] [place] [address] Dr. Kirby EspinozaHematocrit (Bld) [Volume fraction]38.4 %Jwyftu46.0-48.0The St. Anthony'S HospitalComment on above:Performed By: #### CBC #### [facility] [address] [place] [address] Dr. Kirby EspinozaHemoglobin (Bld) [Mass/Vol]13.0 g/tJOgzgbf09.0-16.0The St[facility] Anthony'S HospitalComment on above:Performed By: #### CBC #### [facility] [address] [place] [address] Dr. Kirby Sanchez #0.01 10e3/ulNormal0.00-0.03The St. Anthony'S HospitalComment on above:Performed By: #### CBC #### [facility] [address] [place] [address] Dr. Kirby Sanchez %0.2 %Normal0.0-0.5The [facility] Hospitalment on above: Performed By: #### CBC #### [facility] [address] [place] [address] Dr. Kirby PerezMPH #2.0 103/ulNormal1.2-3.8The St. Anthony'S HospitalComment on above:Performed By: #### CBC #### [facility] [address] [place] [address] Dr. Kirby Perezmphocytes/100 WBC (Bld)30.2 %Xyvtrh63.5-60.0The [facility] Hospitalment on above:Performed By: #### CBC #### [facility] [address] [place] [address] Dr. Kirby WesleyUAL DIFF REQNONormalThe St. Anthony'S HospitalComment on above: Performed By: #### CBC #### [facility] [address] [place] [address] Dr. Kirby Rudd (RBC) [Entitic mass]30.2 ksNoefyf48.7-34.0The St. Anthony'S HospitalComment on above:Performed By: #### CBC #### [facility] [address] [place] [address] Dr. Kirby Rudd (RBC) [Mass/Vol]33.9 g/jFOykybu49.9-35.2The St. Anthony'S HospitalComment on above:Performed By: #### CBC #### [facility] [address] [place] [address] Dr. Kirby Rudd (RBC) [Entitic vol]89.1 dPPrupmu09.0-99.0The St[facility] Anthony'S HospitalComment on above:Performed By: #### CBC #### [facility] [address] [place] [address] Dr. Kirby Conte #0.5 103/ulNormal0.3-0.8The St. Anthony'S HospitalComment on above:Performed By: #### CBC #### [facility] [address] [place] [address] Dr. Kirby Stilesocytes/100 WBC (Bld)7.0 %Normal1.7-12.0The [facility] Comment on above:Performed By: #### CBC #### [facility] [address] [place] [address] Dr. Kirby Billy #4.0 103/ulNormal1.4-6.5The St. Anthony'S HospitalComment on above:Performed By: #### CBC #### [facility] [address] [address] [address] Kirby Rodneyutrophils/100 WBC (Bld)60.8 %Etsrtv04.0-75.0The [facility] on above:Performed By: #### CBC #### [facility] [address] [place] [address] Dr. Kirby Bentleylet mean volume (Bld) [Entitic vol]9.9 fLNormal9.5-13.5The St. Anthony'S HospitalComment on above:Performed By: #### CBC #### [facility] [address] [place] [address] Dr. Kirby EspinozaPLT245 103/kjEsseqx048-317Jre [facility] on above: Performed By: #### CBC #### [facility] [address] [place] [address] Dr. Kirby EspinozaRBC4.31 106/ulNormal4.20-5.40The [facility] on above:Performed By: #### CBC #### [facility] [address] [place] [address] Dr. Kirby EspinozaWBC6.6 103/ulNormal4.0-11.0The [facility] on above: Performed By: #### CBC #### [facility] [address] [place] [address] Dr. Kirby Noble THYROXINE INDEX T7on 94-09-3370HFL0.19Bxszks7.30-4.50The [facility] Hospitalment on above:Performed By: #### CMP, T7, TSH, LIPID #### [facility] [address] [place] [address] Dr. Kirby EspinozaT3U32.0 %Asuzpj16.0-39.0The [facility] on above: Performed By: #### CMP, T7, TSH, LIPID #### [facility] [address] [place] [address] Dr. Kirby EspinozaT4 [Mass/Vol]9.40 ug/dLNormal4.80-13.90The [facility] Comment on above:Performed By: #### CMP, T7, TSH, LIPID #### [facility] [address] [address] [address] Kirby EspinozaGLYCOHEMOGLOBIN A1Con 05-77-9671YBZ RECOMMENDATIONSEE BELOWMemorial HospitalComment on above:Result Comment: ADA RECOMMENDED LIMIT 4.0 - 6.0 ADA THERAPEUTIC TARGET < 7.0 ACTION SUGGESTED > 7.0Performed By: #### A1C ####[facility] [address] [address]Dr. Kirby EspinozaGlucose [Mass/Vol]114 mg/dLNoAshtabula General HospitalComment on above:Performed By: #### A1C ####[facility] [address] [address]Dr.Yilan EspinozaHbA1c (Bld) [Mass fraction]5.6 %Normal 4.5-6.2The St. Anthony'S HospitalComment on above:Performed By: #### A1C ####[facility] [address] [address]Dr.Yilan EspinozaIRONon [id number] [Mass/Vol]61.0 ug/uRGvaonb65.0-170.0[facility] Rehabilitation HospitalComment on above:Performed By: #### IRON #### [facility] [address] [address] [address] Kirby EspinozaLIPID PROFILEon [id number]-HDL RATIO NORMSEE BELOWLakeHealth Beachwood Medical CenterComment on above:Result Comment: 3.3 - 4.4 LOW RISK 4.4 - 7.1 AVERAGE RISK 7.1 - 11.0 MODERATE RISK >11.0 HIGH RISKPerformed By: #### CMP, T7, TSH, LIPID #### [facility] [address] [address] [address] Kirby EspinozaCholesterol [Mass/Vol]194 mg/dLNormal<=200The [facility] Comment on above:Performed By: #### CMP, T7, TSH, LIPID #### [facility] [address] [address] [address] Kirby Guerreroesterol in HDL [Mass/Vol]69 mg/dLCritically nmpo26-69Yee [facility] HospitalComun[facility] on above:Performed By: #### CMP, T7, TSH, LIPID #### [facility] [address] [address] [address] Kirby Guerreroesterol in LDL [Mass/Vol]110.4 mg/dLNoAshtabula General HospitalComment on above:Performed By: #### CMP, T7, TSH, LIPID #### [facility] [address] [address] [address] Kirby Drake.total/Cholesterol in HDL [Mass ratio]2.8 {ratio} NormalThe St. [facility]S HospitalComuniversity of [facility] health on above:Performed By: #### CMP, T7, TSH, LIPID #### [facility] [address] [place] [address] Dr. Kirby Mix NORMAL> or = 60 mg/dl - LOW CARDIOVASCULAR RISK <40 mg/dl - HIGH CARDIOVASCULAR RISKNoAshtabula General HospitalComment on above:Performed By: #### CMP, T7, TSH, LIPID #### [facility] [address] [place] [address] Dr. Kirby Pérez CALC NORMALSEE BELOWLakeHealth Beachwood Medical CenterComment on above:Result Comment: <100 mg/dl OPTIMAL 100 - 129 mg/dl NEAR OR ABOVE OPTIMAL 130 - 159 mg/dl BORDERLINE HIGH 160 - 189 mg/dl HIGH >190 mg/dl VERY HIGH Performed By: #### CMP, T7, TSH, LIPID #### [facility] [address] [place] [address] Dr. Kirby EspinozaTriglyceride [Mass/Vol]73 mg/dLNormal<=150[facility] Comment on above:Performed By: #### CMP, T7, TSH, LIPID #### [facility] [address] [place] [address] Dr. Kirby EspinoLDL CALC14.6 mg/dLNoAshtabula General HospitalComment on above: Performed By: #### CMP, T7, TSH, LIPID #### [facility] [address] [address] [address] Kirby Pepe BLD IMMUNO SCREENon [id number] BLOODPositiveAbnormal NEGATIVEThe St. [facility]'S HospitalComment on above:Performed By: #### OBSCRN #### [facility] [address] [address] [address] Kirby EspinozaPROF 14(COMP METB)on 22-32-1851Owjkfmp [Mass/Vol]3.6 g/dLNormal 3.4-5.0The St[facility]S HospitalComment on above:Performed By: #### CMP, T7, TSH, LIPID ####[facility] [address] [address]Dr. Kirby EspinozaAlbumin/Globulin [Mass ratio]0.9 {ratio}NormalThe St. [facility]'S HospitalComment on above:Performed By: #### CMP, T7, TSH, LIPID ####[facility] [address] [address]Dr. Kirby EspinozaALP [Catalytic activity/Vol]72 U/KKxddbf45-334Alv St[facility]'S HospitalComment on above: Performed By: #### CMP, T7, TSH, LIPID ####[facility] [address] [address]Dr. Kirby EspinozaALT [Catalytic activity/Vol]21 U/L Iupiju32-48Oim St[facility]'S HospitalComment on above:Performed By: #### CMP, T7, TSH, LIPID ####[facility] [address] [address]Dr. Kirby EspinozaAnion gap [Moles/Vol]10.2 mmol/LNormalThe [facility] Comment on above:Performed By: #### CMP, T7, TSH, LIPID ####[facility] [address] [address]Dr. Kirby ChangAST [Catalytic activity/Vol]17 U/RThpxef72-35Uuo St[facility]'S HospitalComment on above:Performed By: #### CMP, T7, TSH, LIPID ####[facility] [address] [place], [place] [address]Dr. Yilan ChangBilirubin [Mass/Vol]0.5 mg/dLNormal 0.2-1.0The [facility] Hospitalment on above:Performed By: #### CMP, T7, TSH, LIPID ####[facility] [address] [address]Dr. Yilan ChangCalcium [Mass/Vol]8.6 mg/dLNormal8.5-10.1The St[facility]'S HospitalComment on above:Performed By: #### CMP, T7, TSH, LIPID ####[facility] [address] [place], [place] [address]Dr. Yilan Espinoza Chloride [Moles/Vol]103 mmol/LGekeeh05-256Sgv [facility] on above: Performed By: #### CMP, T7, TSH, LIPID ####[facility] [address] [place], [place] [address]Dr. Yilan ChangCO2 [Moles/Vol]27.4 mmol/LNormal 21.0-32.0The [facility] HospitalComuniversity of [facility] on above:Performed By: #### CMP, T7, TSH, LIPID ####[facility] [address] [place], [place] [address]Dr. Yilan ChangCreatinine [Mass/Vol]0.70 mg/dLNormal0.55-1.02The [facility] on above:Performed By: #### CMP, T7, TSH, LIPID ####[facility] [address] [place], [place] [address]Dr. Yilan ChangEGFR- AF BAHRAINI>60Normal>=60The [facility] on above:Performed By: #### CMP, T7, TSH, LIPID ####[facility] [address] [place], [place] [address]Dr. Yilan ChangEGFR-NON AF BAHRAINI>60Normal>=60The [facility] on above:Performed By: #### CMP, T7, TSH, LIPID ####[facility] [address] [place], [place] [address]Dr. Yilan ChangGlobulin (S) [Mass/Vol]3.8 g/dLNormalThe St. [facility]'S HospitalComment on above:Performed By: #### CMP, T7, TSH, LIPID ####[facility] [address] [address]Dr. Yilan ChangGlucose [Mass/Vol]103 mg/iXHzuxqw49-336Iqr St[facility]'S HospitalComment on above:Performed By: #### CMP, T7, TSH, LIPID ####[facility] [address] [address]Dr. Yilan ChangPotassium [Moles/Vol]3.6 mmol/LNormal 3.5-5.1The [facility]'S HospitalComment on above:Performed By: #### CMP, T7, TSH, LIPID ####[facility] [address] [place], [place] [address]Dr. Yilan ChangProtein [Mass/Vol]7.4 g/dLNormal6.4-8.2The [facility] Comment on above:Performed By: #### CMP, T7, TSH, LIPID ####[facility] [address] [place], [place] [address]Dr. Yilan ChangSodium [Moles/Vol]137 mmol/LKxdbgn146-392Stg St. [facility]'S HospitalComment on above: Performed By: #### CMP, T7, TSH, LIPID ####[facility] [address] [address]Dr. Yilan ChangUrea nitrogen [Mass/Vol]15.0 mg/dLNormal7.0-18.0The St[facility]'S HospitalComment on above:Performed By: #### CMP, T7, TSH, LIPID ####[facility] [address] [place], [place] [address]Dr. Yilan ChangUrea nitrogen/Creatinine [Mass ratio]21.4 mg/mgNormal The St[facility]S HospitalComment on above:Performed By: #### CMP, T7, TSH, LIPID ####[facility] [address] [place], [place] [address]Dr. Yilan ChangTSHon 53-12-1750ZVR8.513 uIU/mLNormal0.358-3.740The [facility] Comment on above:Performed By: #### CMP, T7, TSH, LIPID #### [facility] [address] [address] [address] Kirby EspinozaVC VENOUS REFLUX CARL LMTon [id number] VENOUS REFLUX CARL LMT Patient: KIRT REYNA Exam Date: 12/28/2021 : 1970 Gender:F Ordering : DR SONDRA LIU . Admission #: [id number] Family : Order #: [id number] CLICK HERE TO VIEW EXAM RADIOLOGY REPORT [...] chronic thrombus visualized Compressibility: Normal Flow: Normal Mining Helper: Dist/med 1.7mm, without reflux Tech Note: Competent SFJ and SPJ. Patent varicose vein 1.3mm without reflux. CONCLUSION: 1. No significantly dilated or incompetent superficial veins within the right or left lower extremity. Dictated by: Kristi Tamez M.D. on 12/31/2021 at 07:51 Approved by: Kristi Tamez M.D. on 12/31/2021 at 08:05[facility] Vital Signs Date TimeVital SignValuePerforming UbzafhdncDglpfhyy38-78-7172 11:26-0400Body kdijzq00.1 kgCoreRevere Memorial HospitalStevie DO Work Phone: [facility] InstituteBqltmpumhi41-24-1811 11:26-0400Diastolic blood ruszfoxp80 mm[Hg][facility]ziCr[facility] Work Phone: [facility] InstituteKgheqlyjmy61-89-6679 11:26-0400Systolic blood mm[Hg][facility] CenterziCr[facility] Work Phone: [facility] InstituteYaoehpmryz87-64-8298 15:35-0400Body temperature 97.5 [degF]Phil Dougherty MD Work Phone: [facility]05-16-2025 15:35-0400Diastolic blood togrkwre95 mm[Hg]Phil Dougherty MD Work Phone: [facility]05-16-2025 15:35-0400Heart rate88 /min Phil Dougherty MD Work Phone: [facility]05-16-2025 15:35-3189BcB5% (BldA) [Mass fraction]99 %Phil Dougherty MD Work Phone: [facility]05-16-2025 15:35-0400Systolic blood xhvosxpo960 mm[Hg]Phil Dougherty MD Work Phone: [facility]04-22-2025 13:57-0400Body xwlkle693.2 cmVkenzie Bonds MD Work Phone: [facility]04-22-2025 13:57-0400Body mass index (BMI) [Ratio]28.79 kg/m0RojlnPaco Bonds MD Work Phone: [facility]04-22-2025 13:57-0400Body temperature 98.1 [degF]Paco Bonds MD Work Phone: [address] [place] [address]-22-2025 13:57-0400Body sfoumb10.4 kgPcao Bonds MD Work Phone: [facility]04-22-2025 13:57-0400Diastolic blood zjbmpfda27 mm[Hg]Paco Bonds MD Work Phone: [facility]04-22-2025 13:57-0400Heart rate79 /min Paco Bonds MD Work Phone: [facility]04-22-2025 13:57-0400Respiratory rate 16 /minPaco Bonds MD Work Phone: [facility]04-22-2025 13:57-5805RvX1% (BldA) [Mass fraction]99 %Paco Bonds MD Work Phone: [facility]04-22-2025 13:57-0400Systolic blood mm[Hg]Paco Bonds MD Work Phone: [facility]11-15-2024 15:50-0500Body .2 cmDajonathan Dougherty MD Work Phone: [facility]11-15-2024 15:50-0500Body mass index (BMI) [Ratio]28.35 kg/n2PjnauPhil Dougherty MD Work Phone: [facility]11-15-2024 15:50-0500Body btzekd30.1 kgPhil Dougherty MD Work Phone: [facility]11-15-2024 15:50-0500Diastolic blood eequvocd79 mm[Hg]Phil Dougherty MD Work Phone: [facility]11-15-2024 15:50-0500Heart rate92 /min Phil Dougherty MD Work Phone: [facility]11-15-2024 15:50-4778PuA9% (BldA) [Mass fraction]100 %Phil Dougherty MD Work Phone: [facility]11-15-2024 15:50-0500Systolic blood qfixytey798 mm[Hg]Phil Dougherty MD Work Phone: [facility]10-14-2024 15:00-0400Body mass index (BMI) [Ratio]28.38 kg/b0GblspGerardo Mckinnon APRN.MANAGER TALENT ACQUISITION Work Phone: [facility]10-14-2024 15:00-0400Body temperature 97.9 [degF]Gerardo Mckinnon APRN.MANAGER TALENT ACQUISITION Work Phone: [facility]10-14-2024 15:00-0400Body iyqdzh79.2 kgGerardo Mckinnon APRN.MANAGER TALENT ACQUISITION Work Phone: [facility]10-14-2024 15:00-0400Diastolic blood znkzpvvu81 mm[Hg]Gerardo Mckinnon APRN.MANAGER TALENT ACQUISITION Work Phone: [facility]10-14-2024 15:00-0400Heart rate89 /min Gerardo Mckinnon APRN.MANAGER TALENT ACQUISITION Work Phone: [facility]10-14-2024 15:00-0400Respiratory rate 16 /minGerardo Mckinnon APRN.MANAGER TALENT ACQUISITION Work Phone: [facility]10-14-2024 15:00-0157NtO2% (BldA) [Mass fraction]100 %Gerardo Mckinnon APRN.MANAGER TALENT ACQUISITION Work Phone: [facility]10-14-2024 15:00-0400Systolic blood gqngofxc954 mm[Hg]Gerardo Mckinnon APRN.CNP Work Phone: [facility]05-31-2024 13:55-0400Body .2 cmPhil Dougherty MD Work Phone: [facility]05-31-2024 13:55-0400Body mass index (BMI) [Ratio]27.72 kg/z3FoeciPhil Dougherty MD Work Phone: [facility]05-31-2024 13:55-0400Body temperature 97.3 [degF]Phil Dougherty MD Work Phone: [facility]05-31-2024 13:55-0400Body dnpjut04.29 kgPhil Dougherty MD Work Phone: [facility]05-31-2024 13:55-0400Diastolic blood nckymaxe51 mm[Hg]Phil Dougherty MD Work Phone: [facility]05-31-2024 13:55-0400Heart rate81 /min Phil Dougherty MD Work Phone: [facility]05-31-2024 13:55-9562RpP5% (BldA) [Mass fraction]100 %Phil Dougherty MD Work Phone: [facility]05-31-2024 13:55-0400Systolic blood isgnafol637 mm[Hg]Phil Dougherty MD Work Phone: [facility]04-19-2024 16:12-0400Body temperature 97.11 [degF]Phil Dougherty MD Work Phone: [facility]04-19-2024 16:12-0400Diastolic blood ytohrwjs01 mm[Hg]Phil Dougherty MD Work Phone: [place] [address]-19-2024 16:12-0400Heart rate90 /min Phil Dougherty MD Work Phone: [place] [address]-19-2024 16:12-1461LeZ9% (BldA) [Mass fraction]100 %Phil Dougherty MD Work Phone: [place] [address]-19-2024 16:12-0400Systolic blood nssbxvza878 mm[Hg]Phil Dougherty MD Work Phone: [place] [address]-15-2024 14:12-0400Body .2 Joseline Bonds MD Work Phone: [facility]04-15-2024 14:12-0400Body temperature 97 [degF]Paco Bonds MD Work Phone: [place] [address]-15-2024 14:12-0400Body cuzkxq60.4 kgPaco Bonds MD Work Phone: [place] [address]-15-2024 14:12-0400Diastolic blood ciircgwo22 mm[Hg]Paco Bonds MD Work Phone: [place] [address]-15-2024 14:12-0400Heart rate93 /min Paco Bonds MD Work Phone: [place] [address]-15-2024 14:12-0400Respiratory rate 16 /minPaco Bonds MD Work Phone: [place] [address]-15-2024 14:12-9287MmY9% (BldA) [Mass fraction]99 %Paco Bonds MD Work Phone: [place] [address]-15-2024 14:12-0400Systolic blood eljmjiwh644 mm[Hg]Paco Bonds MD Work Phone: [facility]10-16-2023 13:56-0400Body wfhekg039.2 Joseline Bonds MD Work Phone: [facility]10-16-2023 13:56-0400Body temperature 97.2 [degF]Paco Bonds MD Work Phone: [facility]10-16-2023 13:56-0400Body cnluhg24.83 kgPaco Bonds MD Work Phone: [facility]10-16-2023 13:56-0400Diastolic blood cyetlrtw72 mm[Hg]Paco Bonds MD Work Phone: [facility]10-16-2023 13:56-0400Heart rate84 /min Paco Bonds MD Work Phone: [facility]10-16-2023 13:56-0400Respiratory rate 16 /minPaco Bonds MD Work Phone: [facility]10-16-2023 13:56-7872YmZ8% (BldA) [Mass fraction]99 %Paco Bonds MD Work Phone: [facility]10-16-2023 13:56-0400Systolic blood ncsobpgk186 mm[Hg]Paco Bonds MD Work Phone: [facility]07-06-2023 15:22-0400Body .02 kgDajonathan Dougherty MD Work Phone: [facility]07-06-2023 15:22-0400Diastolic blood ixxoismg58 mm[Hg]Phil Dougherty MD Work Phone: [facility]07-06-2023 15:22-0400Heart rate78 /min Phil Dougherty MD Work Phone: [facility]07-06-2023 15:22-0400Systolic blood apkjhizt892 mm[Hg]Phil Dougherty MD Work Phone: [facility]04-17-2023 14:17-0400Body temperature 97.5 [degF]Toribio Michaud MD Work Phone: [facility]04-17-2023 14:17-0400Body puqtcn78.38 kgToribio Michaud MD Work Phone: [place] [address]-17-2023 14:17-0400Diastolic blood wbsdzzcu02 mm[Hg]Toribio Michaud MD Work Phone: [facility]04-17-2023 14:17-0400Heart rate90 /min Toribio Michaud MD Work Phone: 1(335) 937-762955 [address]17-2023 14:17-0400Respiratory rate 16 /minSanuja Michaud MD Work Phone: 1(244) 587-549455 [address]17-2023 14:17-0400Systolic blood cedhabma523 mm[Hg]Toribio Michaud MD Work Phone: [place] [address]-17-2023 13:40-0400Diastolic blood dasdrkza93 mm[Hg]Paco Bonds MD Work Phone: 1(610) 102-509755 [address]17-2023 13:40-0400Heart rate90 /min Paco Bonds MD Work Phone: 1(592) 679-160155 [address]17-2023 13:40-0400Systolic blood ykhbyahf153 mm[Hg]Paco Bonds MD Work Phone: [place] [address]-17-2023 13:34-0400Body fnugkb988.2 Joseline Bonds MD Work Phone: [place] [address]-17-2023 13:34-0400Body temperature 97.5 [degF]Paco Bonds MD Work Phone: [place] [address]-17-2023 13:34-0400Body .65 kgPaco Bonds MD Work Phone: [place] [address]-17-2023 13:34-0400Respiratory rate 16 /minPaco Bonds MD Work Phone: [place] [address]-17-2023 13:34-3143UdJ8% (BldA) [Mass fraction]100 %Paco Bonds MD Work Phone: [facility]02-22-2023 10:29-0500Body .2 Joseline Bonds MD Work Phone: [facility]02-22-2023 10:29-0500Body temperature 98.91 [degF]Paco Bonds MD Work Phone: [facility]02-22-2023 10:29-0500Body .56 kgPaco Bonds MD Work Phone: [facility]02-22-2023 10:29-0500Diastolic blood ppbeqlcr03 mm[Hg]Paco Bonds MD Work Phone: [facility]02-22-2023 10:29-0500Heart rate97 /min Paco Bonds MD Work Phone: [facility]02-22-2023 10:29-0500Respiratory rate 16 /minPaco Bonds MD Work Phone: [facility]02-22-2023 10:29-4963WgY8% (BldA) [Mass fraction]98 %Paco Bonds MD Work Phone: [facility]02-22-2023 10:29-0500Systolic blood xdxidcjc905 mm[Hg]Paco Bonds MD Work Phone: [facility]01-19-2023 10:47-0500Body temperature 97.39 [degF]Toribio Michaud MD Work Phone: [facility]01-19-2023 10:47-0500Body pzcynh61.66 kgToribio Michaud MD Work Phone: [facility]01-19-2023 10:47-0500Diastolic blood arzrwjdl29 mm[Hg]Toribio Michaud MD Work Phone: [facility]01-19-2023 10:47-0500Heart rate79 /min Toribio Michaud MD Work Phone: [facility]01-19-2023 10:47-0500Respiratory rate 16 /minSanuja Michaud MD Work Phone: [facility]01-19-2023 10:47-1238HbS7% (BldA) [Mass fraction]99 %Toribio Michaud MD Work Phone: [facility]01-19-2023 10:47-0500Systolic blood cenplipg732 mm[Hg]Toribio Michaud MD Work Phone: [facility]01-11-2023 10:16-0500Body temperature 98.1 [degF]Chair Chitra Work Phone: [facility]01-11-2023 10:16-0500Diastolic blood mm[Hg]Chair Chitra Work Phone: [facility]01-11-2023 10:16-0500Heart rate68 /min Chair Chitra Work Phone: [facility]01-11-2023 10:16-0500Respiratory rate 16 /minChair Chitra Work Phone: [facility]01-11-2023 10:16-0500Systolic blood huddkygc008 mm[Hg]Chair Chitra Work Phone: [facility]01-10-2023 12:10-0500Body temperature 97.3 [degF]Toribio Michaud MD Work Phone: [facility]01-10-2023 12:10-0500Body uuwcpq10.02 kgToribio Michaud MD Work Phone: [facility]01-10-2023 12:10-0500Diastolic blood lgnzsaim59 mm[Hg]Toribio Michaud MD Work Phone: [facility]01-10-2023 12:10-0500Heart rate83 /min Toribio Michaud MD Work Phone: [facility]01-10-2023 12:10-0500Respiratory rate 16 /minSanuja Michaud MD Work Phone: [facility]01-10-2023 12:10-3373QaU2% (BldA) [Mass fraction]98 %Toribio Michaud MD Work Phone: [place] [address]-10-2023 12:10-0500Systolic blood mm[Hg]Toribio Michaud MD Work Phone: [facility]01-09-2023 10:14-0500Body temperature 98.01 [degF]Chair Chitra Work Phone: [facility]01-09-2023 10:14-0500Diastolic blood qmllhofi20 mm[Hg]Chair [place] Work Phone: [facility]01-09-2023 10:14-0500Heart rate84 /min Chair [place] Work Phone: [facility]01-09-2023 10:14-0500Respiratory rate 16 /minChair Chitra Work Phone: [facility]01-09-2023 10:14-0644UpF6% (BldA) [Mass fraction]98 %Chair [place] Work Phone: [facility]01-09-2023 10:14-0500Systolic blood wipqgpbq557 mm[Hg]Chair Chitra Work Phone: [facility]01-06-2023 10:18-0500Body temperature 98.2 [degF]Chair Chitra Work Phone: [facility]01-06-2023 10:18-0500Diastolic blood jfrgcmsa84 mm[Hg]Chair Chitra Work Phone: [facility]01-06-2023 10:18-0500Heart rate82 /min Chair [place] Work Phone: [facility]01-06-2023 10:18-0500Respiratory rate 18 /minChair Chitra Work Phone: [facility]01-06-2023 10:18-6628DdK5% (BldA) [Mass fraction]99 %Chair [place] Work Phone: [facility]01-06-2023 10:18-0500Systolic blood urlkwlig020 mm[Hg] [place]it[place] Work Phone: [facility]01-05-2023 12:28-0500Body temperature 97.9 [degF]Toribio Michaud MD Work Phone: [facility]01-05-2023 12:28-0500Body iorxxx61.83 kgToribio Michaud MD Work Phone: [facility]01-05-2023 12:28-0500Diastolic blood guandrpk40 mm[Hg]Toribio Michaud MD Work Phone: [facility]01-05-2023 12:28-0500Heart rate79 /min Toribio Michaud MD Work Phone: [facility]01-05-2023 12:28-0500Respiratory rate 16 /minSanuja Michaud MD Work Phone: [facility]01-05-2023 12:28-5234CjY8% (BldA) [Mass fraction]98 %Toribio Michaud MD Work Phone: [facility]01-05-2023 12:28-0500Systolic blood xbhhlium562 mm[Hg]Toribio Michaud MD Work Phone: [facility]01-04-2023 10:21-0500Body hxfioq401.2 Joseline Bonds MD Work Phone: [facility]01-04-2023 10:21-0500Body temperature 97.2 [degF]Paco Bonds MD Work Phone: [facility]01-04-2023 10:21-0500Body agesnx86.02 kgPaco Bonds MD Work Phone: [facility]01-04-2023 10:21-0500Diastolic blood osponehw23 mm[Hg]Paco Bonds MD Work Phone: [facility]01-04-2023 10:21-0500Heart rate78 /min Paco Bodns MD Work Phone: [facility]01-04-2023 10:21-0500Respiratory rate 16 /minPaco Bonds MD Work Phone: [facility]01-04-2023 10:21-0460RsJ3% (BldA) [Mass fraction]100 %Paco Bonds MD Work Phone: [facility]01-04-2023 10:21-0500Systolic blood mm[Hg]Paco Bonds MD Work Phone: [facility]12-30-2022 10:13-0500Body temperature 98.4 [degF]Chair [place] Work Phone: [facility]12-30-2022 10:13-0500Diastolic blood wflaxaeq34 mm[Hg]Chair [place] Work Phone: [facility]12-30-2022 10:13-0500Heart rate78 /min Chair [place] Work Phone: [facility]12-30-2022 10:13-0500Respiratory rate 18 /minChair [place]itra Work Phone: [facility]12-30-2022 10:13-4192AhY8% (BldA) [Mass fraction]99 %Chair [place] Work Phone: [facility]12-30-2022 10:13-0500Systolic blood rvcjoiku242 mm[Hg]Chair [place] Work Phone: [facility]12-29-2022 12:09-0500Body temperature 98.2 [degF]Toribio Michaud MD Work Phone: [facility]12-29-2022 12:09-0500Body umqxaz98.2 kgToribio Michaud MD Work Phone: [facility]12-29-2022 12:09-0500Diastolic blood cxqoqjxs93 mm[Hg]Toribio Michaud MD Work Phone: [place] [address]-29-2022 12:09-0500Heart rate63 /min Toribio Michaud MD Work Phone: [place] [address]-29-2022 12:09-0500Respiratory rate 16 /minSanuja Michaud MD Work Phone: [place] [address]-29-2022 12:09-5242KeJ6% (BldA) [Mass fraction]99 %Toribio Michaud MD Work Phone: 1(553)396-96[place] [address]-29-2022 12:09-0500Systolic blood jdcvqcur934 mm[Hg]Toribio Michaud MD Work Phone: 1(999)1-[address] [place] [address]-28-2022 09:07-0500Body .2 cmGerardo Mckinnon ANTITANK ASSAULT GUNNER.MANAGER TALENT ACQUISITION Work Phone: 1(426)[facility] [place], [place] 9914812-28-2022 09:07-0500Body temperature 97.9 [degF]Gerardo Mckinnon APRN.MANAGER TALENT ACQUISITION Work Phone: 1(213)397-[address] [place], [place] 9914812-28-2022 09:07-0500Body .02 kgGerardo Mckinnon APRN.MANAGER TALENT ACQUISITION Work Phone: [phone])[phone]12-28-2022 09:07-0500Diastolic blood mm[Hg]Gerardo Mckinnon APRN.MANAGER [employer] Work Phone: [phone])221-[address] [place], [place] 9914812-28-2022 09:07-0500Heart rate87 /min Gerardo Mckinnon APRN.MANAGER [employer] Work Phone: [phone] [address]-28-2022 09:07-0500Respiratory rate 16 /minGerardo Mckinnon APRN.MANAGER [employer] Work Phone: [place] [address]-28-2022 09:07-4315ZyP2% (BldA) [Mass fraction]97 %Gerardo Mckinnon APRN.MANAGER [employer] Work Phone: [place] [address]-28-2022 09:07-0500Systolic blood tywypfmv701 mm[Hg]Gerardo Mckinnon APRN.MANAGER [employer] Work Phone: [place] [address]-21-2022 12:15-0500Body temperature 96.69 [degF]Toribio Michaud MD Work Phone: [place] [address]-21-2022 12:15-0500Body duitef77.66 kgToribio Michaud MD Work Phone: [place] [address]-21-2022 12:15-0500Diastolic blood ywkpwbay37 mm[Hg]Toribio Michaud MD Work Phone: [place] [address]-21-2022 12:15-0500Heart rate82 /min Toribio Michaud MD Work Phone: [place] [address]-21-2022 12:15-0500Respiratory rate 18 /minSanuja Michaud MD Work Phone: [place] [address]-21-2022 12:15-0796FhX9% (BldA) [Mass fraction]96 %Toribio Michaud MD Work Phone: [place] [address]-21-2022 12:15-0500Systolic blood mm[Hg]Toribio Michaud MD Work Phone: [place] [address]-16-2022 10:25-0500Body temperature 98.1 [degF]Chair [place] Work Phone: [place] [address]-16-2022 10:25-0500Diastolic blood rpqbnyjc26 mm[Hg]Chair Chitra Work Phone: [place] [place] [address]-16-2022 10:25-0500Heart rate76 /min Chair [place] Work Phone: [place] [address]-16-2022 10:25-0500Respiratory rate 16 /minChair [place] Work Phone: [place] [address]-16-2022 10:25-6464CcO6% (BldA) [Mass fraction]98 %Chair [place] Work Phone: [place] [address]-16-2022 10:25-0500Systolic blood jsbanbml262 mm[Hg] Chit[place] Work Phone: [facility]12-14-2022 12:42-0500Body temperature 96.69 [degF]Toribio Michaud MD Work Phone: [place] [address]-14-2022 12:42-0500Body rnmqcy32.11 kgToribio Michaud MD Work Phone: [place] [address]-14-2022 12:42-0500Diastolic blood gvwubyay84 mm[Hg]Toribio Michaud MD Work Phone: [place] [address]-14-2022 12:42-0500Heart rate74 /min Toribio Michaud MD Work Phone: [place] [address]-14-2022 12:42-0500Respiratory rate 18 /minSanuja Michaud MD Work Phone: [place] [address]-14-2022 12:42-2022UyT9% (BldA) [Mass fraction]100 %Toribio Michaud MD Work Phone: [place] [address]-14-2022 12:42-0500Systolic blood qsfsdufw004 mm[Hg]Toribio Michaud MD Work Phone: [facility]12-12-2022 11:41-0500Body adgcim355.2 cmGerardo Mckinnon ANTITANK ASSAULT GUNNER.MANAGER TALENT ACQUISITION Work Phone: [place] [address]-12-2022 11:41-0500Body temperature 97.59 [degF]Gerardo Mckinnon ANTITANK ASSAULT GUNNER.MANAGER TALENT ACQUISITION Work Phone: [place] [address]-12-2022 11:41-0500Body hdeudr87.66 kgGerardo Mckinnon ANTITANK ASSAULT GUNNER.MANAGER TALENT ACQUISITION Work Phone: [place] [address]-12-2022 11:41-0500Diastolic blood yxmearsj67 mm[Hg]Gerardo Mckinnon ANTITANK ASSAULT GUNNER.MANAGER TALENT ACQUISITION Work Phone: [place] [address]-12-2022 11:41-0500Heart rate90 /min Gerardo Mckinnon APRN.MANAGER TALENT ACQUISITION Work Phone: [facility]12-12-2022 11:41-0500Respiratory rate 16 /minGerardo Mckinnon APRN.MANAGER TALENT ACQUISITION Work Phone: [facility]12-12-2022 11:41-0536BvZ5% (BldA) [Mass fraction]99 %Gerardo Mckinnon APRN.MANAGER TALENT ACQUISITION Work Phone: [facility]12-12-2022 11:41-0500Systolic blood akuasxlv283 mm[Hg]Gerardo Mckinnon APRN.MANAGER TALENT ACQUISITION Work Phone: [facility]12-09-2022 13:20-0500Body temperature 97.9 [degF]Chair [place] Work Phone: [facility]12-09-2022 13:20-0500Diastolic blood mm[Hg]Chair [place] Work Phone: [facility]12-09-2022 13:20-0500Heart rate81 /min Chair [place] Work Phone: [place] [address]-09-2022 13:20-0500Respiratory rate 16 /minChair [place] Work Phone: [place] [address]-09-2022 13:20-3289CsL2% (BldA) [Mass fraction]100 %Chair [place] Work Phone: [facility]12-09-2022 13:20-0500Systolic blood rwysyxxe787 mm[Hg]Chair [place] Work Phone: [facility]12-07-2022 14:15-0500Body temperature 98.01 [degF]Chair [place] Work Phone: [facility]12-07-2022 14:15-0500Diastolic blood ysnnramd55 mm[Hg]Chair [place] Work Phone: [facility]12-07-2022 14:15-0500Heart rate69 /min Chair [place] Work Phone: [facility]12-07-2022 14:15-0500Respiratory rate 16 /minChair [place] Work Phone: [facility]12-07-2022 14:15-0500Systolic blood axazhpcf366 mm[Hg]Chair [place] Work Phone: [facility]12-07-2022 13:19-0500Body temperature 97.2 [degF]Toribio Michaud MD Work Phone: [facility]12-07-2022 13:19-0500Body frxoeu01.2 kgToribio Michaud MD Work Phone: [facility]12-07-2022 13:19-0500Diastolic blood ealkqlom76 mm[Hg]Toribio Michaud MD Work Phone: [facility]12-07-2022 13:19-0500Heart rate78 /min Toribio Michaud MD Work Phone: [facility]12-07-2022 13:19-0500Respiratory rate 16 /minSanuja Michaud MD Work Phone: [place] [address]-07-2022 13:19-1159VbE5% (BldA) [Mass fraction]99 %Toribio Michaud MD Work Phone: [facility]12-07-2022 13:19-0500Systolic blood ygvwppsi406 mm[Hg]Toribio Michaud MD Work Phone: [facility]12-05-2022 13:33-0500Body oswwnl684.2 Joseline Bonds MD Work Phone: [place] [address]-05-2022 13:33-0500Body temperature 97.5 [degF]Paco Bonds MD Work Phone: [facility]12-05-2022 13:33-0500Body uyuwvm33.75 kgPaco Bonds MD Work Phone: [address] [place], [place] [address]-05-2022 13:33-0500Diastolic blood mm[Hg]Paco Bonds MD Work Phone: [facility]12-05-2022 13:33-0500Heart rate79 /min Paco Bonds MD Work Phone: [facility]12-05-2022 13:33-0500Respiratory rate 18 /minPaco Bonds MD Work Phone: [facility]12-05-2022 13:33-4799QsW9% (BldA) [Mass fraction]99 %Paco Bonds MD Work Phone: [facility]12-05-2022 13:33-0500Systolic blood cdgbdecb051 mm[Hg]Paco Bonds MD Work Phone: [facility]11-14-2022 11:01-0500Body jmxfeq558.2 cmVkenzie Bonds MD Work Phone: [facility]11-14-2022 11:01-0500Body temperature 97.2 [degF]Paco Bonds MD Work Phone: [facility]11-14-2022 11:01-0500Body ftitri64.38 kgPaco Bonds MD Work Phone: [facility]11-14-2022 11:01-0500Diastolic blood mm[Hg]Paco Bonds MD Work Phone: [facility]11-14-2022 11:01-0500Heart rate90 /min Paco Bonds MD Work Phone: [place] [address]-14-2022 11:01-0500Respiratory rate 16 /minPaco Bonds MD Work Phone: [facility]11-14-2022 11:01-3804XhF0% (BldA) [Mass fraction]98 %Paco Bonds MD Work Phone: [facility]11-14-2022 11:01-0500Systolic blood ukwdnfug544 mm[Hg]Paco Bonds MD Work Phone: [facility]10-24-2022 10:46-0400Body temperature 98.1 [degF]Paco Bonds MD Work Phone: [facility]10-24-2022 10:46-0400Body kg Paco Bonds MD Work Phone: [facility]10-24-2022 10:46-0400Diastolic blood lnmwkbua46 mm[Hg]Paco Bonds MD Work Phone: [facility]10-24-2022 10:46-0400Heart rate82 /min Paco Bonds MD Work Phone: [facility]10-24-2022 10:46-0400Respiratory rate 16 /minPaco Bonds MD Work Phone: [facility]10-24-2022 10:46-2851DlI5% (BldA) [Mass fraction]100 %Paco Bonds MD Work Phone: [facility]10-24-2022 10:46-0400Systolic blood gdcnqcyz449 mm[Hg]Paco Bonds MD Work Phone: [facility]10-24-2022 09:10-0400Body temperature 98.1 [degF]Toribio Michaud MD Work Phone: [facility]10-24-2022 09:10-0400Body .02 kgToribio Michaud MD Work Phone: [facility]10-24-2022 09:10-0400Diastolic blood librfjac72 mm[Hg]Toribio Michaud MD Work Phone: [facility]10-24-2022 09:10-0400Heart rate82 /min Toribio Michaud MD Work Phone: [facility]10-24-2022 09:10-0400Respiratory rate 16 /minSanuja Michaud MD Work Phone: [facility]10-24-2022 09:10-4299SaV9% (BldA) [Mass fraction]100 %Toribio Michaud MD Work Phone: [facility]10-24-2022 09:10-0400Systolic blood lbfaslip931 mm[Hg]Toribio Michaud MD Work Phone: [facility]10-20-2022 09:07-0400Body uimxoj12.84 kgDajonathan Dougherty MD Work Phone: [facility]10-20-2022 09:07-0400Diastolic blood fyvahdmf27 mm[Hg]Phil Dougherty MD Work Phone: [facility]10-20-2022 09:07-0400Heart rate89 /min Phil Dougherty MD Work Phone: [facility]10-20-2022 09:07-4370IgG1% (BldA) [Mass fraction]100 %Phil Dougherty MD Work Phone: [facility]10-20-2022 09:07-0400Systolic blood lvqzodpl172 mm[Hg]Phil Dougherty MD Work Phone: [facility]08-10-2022 14:21-0400Blood Pressure LocationMichael NILL [facility] [place] 08-10-2022 14:21-0400Diastolic blood twodgjvl02 mm[Hg] Vitaly NILL [facility] [place] 08-10-2022 14:21-0400Heart rate72 /minMichael [facility]ILL [facility] [place] 08-10-2022 14:21-0400Respiratory rate16 /minMichael NILL General Surgery [place] 08-10-2022 14:21-0400Systolic blood joqpptoz525 mm[Hg] Vitaly VAUGHN General Surgery [place] Encounters Encounter DateEncounter TypeCare ProviderFacilityStart: 04-22-2025 End: 08-93-1323vvjkggekhpYJJIALD M HOYFacility:[facility]: 01-10-2025 End: 86-04-3365Wfucnc flowsheetCorey Stevie DO Work Phone: noms BCP OBStart: 01-10-2025 End: 21-41-4804Qxcnei flowsheetCorey Stevie DO Work Phone: [facility] BCP OBStart: 01-10-2025 End: 62-17-4662Mgwrdifil Result EncounterCorey Stevie DO Work Phone: noms External Department UnsolicitedStart: 01-10-2025 End: 21-00-9535vlgatcccqvSJHSE FAZIONot AvailableStart: 01-10-2025 End: 66-24-8719Lowjrdn encounter procedureCorey Stevie DO Work Phone: noms HealthcareStart: 01-10-2025 End: 69-93-2254Tatxwncy preventive med est patient 40-64yrsCorey Stevie DO Work Phone: [facility] OBComment on above:Well woman exam with routine gynecological exam; Encounter for screening mammogram for malignant neoplasm of breast; Postmenopausal stateStart: 11-26-2024 End: 31-53-8140Uhxcett encounter procedurePhil Dougherty MD Work Phone: Colorectal SurgeryComment on above:Encounter for follow-up surveillance of anal cancer (Primary Dx)Start: 11-26-2024 End: 81-15-6769gsaffsufuzILRQQ ROSENFacility:[facility]art: 11-02-2024 End: 76-42-9577Obrnzto encounter procedureSanuja Michaud MD Work Phone: Radiation OncologyComment on above:Anal cancer (HCC) (Primary Dx)Start: 11-02-2024 End: 71-29-6597Fijiou outpatient visit 25 minutesPaco Bonds MD Work Phone: Hematology/OncologyComment on above:Anal cancer (HCC) (Primary Dx); POTS (postural orthostatic tachycardia syndrome)Start: 11-02-2024 End: 19-02-6205qaokvrhxlvRXIK RAJANFacility:[facility]art: 98-38-2981apskcmnhiiBXHIGXM M HOYFacility:[facility]art: 10-28-2024 End: 95-49-0136Wgyjoyytla hospital visit by physicianArrival Time Radiology Work Phone: Radiology Pet CTStart: 63-77-5966sdnekwazseUZPQ RAJAN [facility] 10-26-2024 End: 73-87-9353Vnbotbwifu hospital visit by physicianMri [facility] ([facility])RADIO MRI [facility] HOSPComment on above: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]Start: 10-22-2024 End: 65-51-8066Ssazyiode Result EncounterCorey Stevie DO Work Phone: noms External Department UnsolicitedStart: 10-22-2024 End: 54-83-3151Klyultbhs Result EncounterCorey Stevie DO Work Phone: noms External Department UnsolicitedStart: 05-28-2024 End: 93-03-2151amzbiykpzmYIJPE ROSENFacility:[facility]art: 05-28-2024 End: 25-47-8217Jqilxam encounter procedurePhil Dougherty MD Work Phone: Colorectal SurgeryComment on above:Encounter for follow-up surveillance of anal cancer (Primary Dx)Start: 04-26-2024 End: 23-75-1340Xqwgtxm encounter procedureGerardo Mckinnon APRN.CNP Work Phone: Hematology/OncologyStart: 04-26-2024 End: 47-85-8224dmnjrykywuWjmqb Martinez APRN.CNP Work Phone: Hematology/OncologyComment on above:Anal cancer (HCC) (Primary Dx); POTS (postural orthostatic tachycardia syndrome)Start: 12-12-2023 End: 70-44-1664Mthbkck encounter procedurePhil Dougherty MD Work Phone: Colorectal SurgeryComment on above:Anal itching (Primary Dx); Diarrhea, unspecified typeStart: 10-31-2023 End: 13-84-3031Qiavzuo encounter procedureDajonathan Dougherty MD Work Phone: Colorectal SurgeryComment on above:Encounter for follow-up surveillance of anal cancer (Primary Dx)Start: 10-27-2023 End: 72-59-5295Kgfiuvv encounter procedureSanuja Michaud MD Work Phone: Radiation OncologyComment on above:Encounter for screening for osteoporosis (Primary Dx); Malignant neoplasm of pelvis (HCC); Anal cancer (HCC)Start: 10-27-2023 End: 68-24-8531Luozaj outpatient visit 25 minutesPaco Bonds MD Work Phone: Hematology/OncologyComment on above:Anal cancer (HCC) (Primary Dx); POTS (postural orthostatic tachycardia syndrome)Start: 10-01-2023 End: 22-18-5515Bqvezhclfn hospital visit by physicianArrival Time Radiology Work Phone: Radiology Pet CTComment on above: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]Start: 09-29-2023 End: 55-77-2016Lavpchyovr hospital visit by physiciani [facility] (1.5t)RADIO MRI [facility] HOSPComment on above: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]Start: 58-18-5238Ntklpxnox encounterSanuja Michaud MD Work Phone: Cancer Appts MCComment on above:OrdersStart: 11-41-2079Paeggwpji encounterPhil Dougherty MD Work Phone: Colorectal SurgeryComment on above:AppointmentStart: 04-28-2023 End: 19-85-7177Wlipjv outpatient visit 25 minutesPaco Bonds MD Work Phone: Hematology/OncologyComment on above:Anal cancer (HCC) (Primary Dx); POTS (postural orthostatic tachycardia syndrome)Start: 78-32-7918Kjupmdgsk encounterSanuja Michaud MD Work Phone: Radiation OncologyComment on above:ResultsStart: 49-53-4037Jdeeipzvh encounterSanuja Michaud MD Work Phone: Radiation OncologyComment on above:Patient Question Start: 01-16-2023 End: 23-31-2872Fltgmyc encounter procedureDajonathan Dougherty MD Work Phone: Colorectal SurgeryComment on above:Encounter for follow-up surveillance of anal cancer (Primary Dx)Start: 10-28-2022 End: 18-18-9626Rajfmto encounter procedureSanuja Michaud MD Work Phone: Radiation OncologyComment on above:Malignant neoplasm of anus (HCC) (Primary Dx)Start: 10-28-2022 End: 09-24-2355Enkblr outpatient visit 25 minutesPaco Bonds MD Work Phone: Hematology/OncologyComment on above:Anal cancer (HCC) (Primary Dx); POTS (postural orthostatic tachycardia syndrome)Start: 74-37-2880ekagduduqk SONDRA Vanncility:[facility] HospitalStart: 10-11-2022 End: 07-79-5805Ivpsuhxzrt hospital visit by physiciani [facility] RadiologyComment on above: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]Start: 09-04-2022 End: 25-93-1784Xmtmtdr encounter procedureSanuja Michaud MD Work Phone: Radiation OncologyComment on above:Malignant neoplasm of anus (HCC) (Primary Dx); Anal cancer (HCC)Start: 09-04-2022 End: 06-81-9626Kbsdkb outpatient visit 25 minutesPaco Bonds MD Work Phone: Hematology/OncologyComment on above:Anal cancer (HCC) (Primary Dx); POTS (postural orthostatic tachycardia syndrome)Start: 08-28-2022 End: 87-60-6827Jecttqlhcv hospital visit by physicianArrival Time Radiology Work Phone: Radiology Pet CTComment on above:Anal cancer (HCC) [C21.0]Start: 38-38-6652Xwamxtxtz encounterRebecca SesslerHematology/Oncology Comment on above:Care Coordination (Letter Request)Start: 08-01-2022 End: 14-42-5164Aalwnza encounter procedureLab/Port Radt [place] Work Phone: Radiation OncologyComment on above:Anal cancer (HCC) Anal cancer (HCC) (Primary Dx)Start: 33-57-6220ublfuiwkbuBveo M Freeman Art TherapistArts & MedicineComment on above:Art TherapyStart: 95-86-7086Trflovj encounter procedureCcf ProviderParkwood Hospital DepartmentStart: 07-25-2022 Radiation Oncology NoteSanuja Michaud MD Work Phone: Radiation OncologyComment on above:Completion Note Start: 07-24-2022 End: 87-69-1385nkvcwlzlvhLnjed [address] [place] Work Phone: Hematology/OncologyComment on above:Anal cancer (HCC) (Primary Dx); POTS (postural orthostatic tachycardia syndrome)Start: 07-23-2022 End: 96-59-5268Uecccxj encounter procedureSanuja Michaud MD Work Phone: Radiation OncologyComment on above:Anal cancer (HCC) (Primary Dx)Start: 07-22-2022 End: 60-83-4142cnccxdsijrOqoti [address] [place] Work Phone: Hematology/OncologyComment on above:Anal cancer (HCC) (Primary Dx); POTS (postural orthostatic tachycardia syndrome)Start: 07-19-2022 End: 65-51-6802nhoifadrweHygbh [address] [place] Work Phone: Hematology/OncologyComment on above:Anal cancer (HCC) (Primary Dx); POTS (postural orthostatic tachycardia syndrome)Start: 07-18-2022 End: 57-63-6549Piecgbe encounter procedureSanuja Michaud MD Work Phone: Radiation OncologyComment on above:Anal cancer (HCC) (Primary Dx)Start: 31-20-8934Miorsoffi encounterPaco Bonds MD Work Phone: Cancer Appts MCComment on above:Referral Information (Cardiology)Start: 07-17-2022 End: 68-23-9806vxzwxpbnycRwzvn Abhyankar MD Work Phone: Hematology/OncologyComment on above:Anal cancer (HCC) (Primary Dx); POTS (postural orthostatic tachycardia syndrome)Start: 07-17-2022 End: 66-60-4645Nopbklm encounter procedurePaco Bonds MD Work Phone: SANDUSKYStart: 59-64-1390atvejjzmgjARZV RAJAN Facility:L4Pumdc: 07-12-2022 End: 34-62-1069kbaxzfgkyqRhsbk [address] [place] Work Phone: Hematology/OncologyComment on above:Anal cancer (HCC) (Primary Dx); POTS (postural orthostatic tachycardia syndrome)Art TherapyStart: 07-11-2022 End: 74-90-2587Ykyiirk encounter procedureSanuja Michaud MD Work Phone: Radiation OncologyComment on above:Anal cancer (HCC) (Primary Dx)Start: 07-10-2022 End: 57-23-8929Zhbdqdrth therapyJamiriam Forbes RD Work Phone: Nutrition TherapyComment on above:Nutrition Assessment Start: 07-10-2022 End: 97-37-5140rdtqdobrihIbirabntmf Kaetzel RD Work Phone: sANDUSKYComment on above:Anal cancer (HCC) (Primary Dx); POTS (postural orthostatic tachycardia syndrome)Start: 07-10-2022 End: 79-35-9667Idexgwu encounter Husam Mckinnon APRN.CNP Work Phone: SANDUSKYStart: 07-03-2022 End: 09-26-8117Zypmgvh encounter procedureSanuja Michaud MD Work Phone: Radiation OncologyComment on above:Anal cancer (HCC) (Primary Dx)Start: 02-84-7157Muzudosch encounterDroisliban Naik [facility] Work Phone: Hematology/OncologyComment on above:Medication Problem (Lidocaine on back order)Medication Authorization (Lidocaine/Hydrocortisone Gel)Start: 06-28-2022 End: 35-26-5026tkbcccufezQitti [place] Work Phone: Hematology/OncologyComment on above:Anal cancer (HCC) (Primary Dx); POTS (postural orthostatic tachycardia syndrome)Start: 06-26-2022 End: 73-33-3833Adkkwdl encounter procedureSanuja Michaud MD Work Phone: Radiation OncologyComment on above:Anal cancer (HCC) (Primary Dx)Start: 06-24-2022 End: 73-11-7760hfynfnwmraEntlm [address] [place] Work Phone: Hematology/OncologyComment on above:Anal cancer (HCC) (Primary Dx); POTS (postural orthostatic tachycardia syndrome)Start: 06-24-2022 End: 90-62-1156Fhdizzb encounter Husam Mckinnon APRN.MANAGER TALENT ACQUISITION Work Phone: SANDUSKYStart: 06-21-2022 End: 44-21-7989xczeeesacmPfnad [address] [place] Work Phone: Hematology/OncologyComment on above:Anal cancer (HCC) (Primary Dx); POTS (postural orthostatic tachycardia syndrome)Start: 23-06-7441Mmsbhcvyp encounterRebecca SesslerHematology/OncologyComment on above:Care Coordination (Oral Anti-Cancer Agent Follow Up)Start: 06-19-2022 End: 71-93-5076tyaqahglfyQbibj 21 [place] Work Phone: Hematology/OncologyComment on above:Anal cancer (HCC) (Primary Dx); POTS (postural orthostatic tachycardia syndrome)Start: 06-19-2022 End: 54-41-9104Epcdbjm encounter Waldemar Michaud MD Work Phone: Radiation OncologyComment on above:Anal cancer (HCC) (Primary Dx)Start: 20-01-5391NprgvvIokfwvi McKitjunaid [facility] Work Phone: Hematology/OncologyComment on above:Refill Request Start: 06-17-2022 End: 73-93-5027xbcfcnpqubIdksr Abhyankar MD Work Phone: Hematology/OncologyComment on above:Anal cancer (HCC) (Primary Dx); POTS (postural orthostatic tachycardia syndrome)Start: 06-17-2022 End: 33-68-5092Qpemrfm encounter procedurePaco Bonds MD Work Phone: SANDUSKYStart: 45-65-9763Ammfndecf encounterShital Amaya RN Work Phone: Hematology/OncologyComment on above:Care Coordination (Medication change)Start: 06-14-2022 End: 53-73-4061cztigbdgdiAsesa 21 [place] Work Phone: Hematology/OncologyComment on above:Anal cancer (HCC) (Primary Dx); POTS (postural orthostatic tachycardia syndrome)Start: 10-87-5052Wyarspwjr encounterG Sudhir Jules MD Work Phone: Radiation OncologyComment on above:Lab OrdersStart: 06-03-2022 End: 28-85-0570ddqvudweilNdjhafj Sessler RN Work Phone: Hematology/OncologyComment on above:Oral Anti-cancer Agent Education (Capecitabine)Start: 06-03-2022 End: 97-02-5796Gqzhunncz therapyJamiriam Forbes RD Work Phone: Nutrition TherapyComment on above:Nutrition Assessment Start: 05-30-2022 End: 74-51-3802wipeawkhfbCxuzlycatg Sharadelvia RD Work Phone: sANDUSKYStart: 05-30-2022 End: 65-98-5508Twcmotclc therapyJacfior Sharadelvia RD Work Phone: Nutrition TherapyComment on above:Nutrition Telephone Start: 05-27-2022 End: 25-41-6638Gvrrldmqnk hospital visit by Deon Michaud MD Work Phone: Radiology Pet CTStart: 05-27-2022 End: 99-20-8715spglltsdesPvpuw Abhyankar MD Work Phone: Hematology/OncologyComment on above:Anal cancer (HCC) (Primary Dx); POTS (postural orthostatic tachycardia syndrome)Start: 05-27-2022 End: 09-91-3151Czjlvjc encounter Abilio Bonds MD Work Phone: SANDUSKYComment on above:Anal cancer (HCC) (Primary Dx)Start: 37-70-5146Wjlfxufwj encounterJah Whitehead RN Work Phone: Hematology/OncologyComment on above:Care Coordination (Antiemetics)Start: 05-21-2022 End: 91-06-1000Niuusfybxj hospital visit by physicianArrival Time Radiology Work Phone: Radiology Pet CTComment on above:Anal cancer (HCC) [C21.0]Start: 51-57-6812Dsfiyednr encounterFrida Naik [facility] Work Phone: Hematology/OncologyComment on above:Medication Update Start: 05-06-2022 End: 52-52-6756mqgsbgagflSxxakf Graves LPNRadiation OncologyComment on above: Patient EducationPatient Education; Opened In ErrorAnal cancer (HCC)Start: 05-06-2022 End: 31-31-3652Uomdzff encounter Abilio Bonds MD Work Phone: SANDUSKYComment on above:Anal cancer (HCC)Start: 05-02-2022 End: 34-36-3000fmyzjjitsoLVIUP ROSENFacility:[facility] HospitalStart: 05-02-2022 End: 53-61-3837Pzkiywz encounter procedureDajonathan Dougherty MD Work Phone: Colorectal SurgeryComment on above:Rectal mass (Primary Dx); Anal cancer (HCC)Start: 04-24-2022 End: 34-91-0428wqosdsabuuFN VITALY NILLFacility:V4Zegqm: 64-25-7792Jlzvjahxj for preprocedural laboratory examinationDR VITALY [facility] Start: 04-20-2022 End: 37-54-4954ttipycrmzcJF VITALY NILLFacility:N2Phoql: 04-20-2022 End: 12-19-6309Rqmhhxxai for preprocedural laboratory examinationDR VITALY VAUGHN Facility:F0Hwlkh: 12-60-7570fugaeoblksGQ VITALY NILLFacility:V7Ckzbg: 96-22-8494swqlbsllrhVO VITALY NILLFacility:M3Nzzhq: 02-20-2022 End: 80-57-7126umlguyhigdSmgolct R NILLFacility:[facility]art: 02-20-2022 End: 14-81-1867Tjfycup encounter procedureMichael R NILL General Surgery Nill/Said [place] Start: 39-96-4728dcrwkayzmqZlqxfhy HoyFacility:[facility]ublintart: 03-63-8062Otsdqpnev for general adult medical examination without abnormal findingsDR SONDRA HOYThe [facility] [place] HospitalStart: 02-04-2022 End: 79-66-4571hutmentzzwEZ SONDRA HOYFacility:C9Nuqie: 02-04-2022 End: 53-25-9568Ytyfhgvke for general adult medical examination without abnormal findingsDR SONDRA HOYFacility:U5Mjgvg: 12-28-2021 End: 63-74-4619xemugukucaSG SONDRA HOYFacility:H4Sgkyf: 56-91-5065zqqkehsswlDM SONDRA HOYFacility:H1 Procedures DateProcedureProcedure DetailPerforming ClinicianStart: 01-28-7496GOY,APTIMA HPV,AGE GDLNCorey Setvie DO Work Phone: Start: 19-56-5311Nm abdomen w/contrast Kaylyn Michaud MD Work Phone: Start: 01-14-1942Zv thorax w/contrast materialSanuja Michaud MD Work Phone: Start: 89-63-8169Kwgio count complete auto&auto difrntl wbcHolly Dean ANTITANK ASSAULT GUNNER.MANAGER TALENT ACQUISITION Work Phone: Start: 60-27-6164Agk pelvis w/o & w/contrast material Toribio Michaud MD Work Phone: Start: 34-75-1121JF TOMOSYNTHESIS SCREENING BICorenina Hubbard DO Work Phone: Start: 49-47-5090Em thorax w/o contrast materialSanuja Michaud MD Work Phone: Start: 09-20-7656Fes pelvis w/o & w/contrast material Toribio Michaud MD Work Phone: Start: 14-03-9939Crj pelvis w/o & w/contrast material Toribio Michaud MD Work Phone: Start: 47-72-5826Xw abdomen & pelvis w/contrast Carissa Bonds MD Work Phone: Start: 49-82-6695Ho thorax w/contrast Carissa Bonds MD Work Phone: Start: 01-47-5008Ynwun count complete auto&auto difrntl wbcPaco Bonds MD Work Phone: Start: 91-49-3259LTQ panel - Blood by Automated count Toribio Michaud MD Work Phone: Start: 82-24-2950Aitulubipuwpq metabolic panelSavy Michaud MD Work Phone: Start: 79-15-2684Nffgw count complete auto&auto difrntl Ivan Bonds MD Work Phone: Start: 51-73-8184Mcnhy count complete auto&auto difrntl Ivan Bonds MD Work Phone: Start: 92-51-8659Ejppv count complete auto&auto difrntl Ivan Bonds MD Work Phone: Start: 47-82-5466Zrqeg count complete auto&auto difrntl Ivan Bonds MD Work Phone: Start: 33-81-0415Tjqzk count complete auto&auto difrntl Ivan Bonds MD Work Phone: Start: 38-81-4808Bj abdomen w/contrast Itzel Dougherty MD Work Phone: Start: 26-64-3293Ii thorax w/contrast Itzel Dougherty MD Work Phone: Start: 14-07-6834IkdlbmmtpqiucvrgtflndcbgzuOcxyfom NILL Dilatation of esophageal strictureMichael NILL Excision of cyst of ovaryMichael NILL Plan of Treatment DateCare ActivityDetailAuthorStart: 38-24-8436Sdtnigco ScreeningDiabetes ScreeningClecommunity memorial hospital ClinicStart: 29-36-8287Wpcrxtfo ScreeningDiabetes Screening [place] ClinicStart: 34-42-3520Kygkcfig ScreeningDiabetes ScreeningClecommunity memorial hospital ClinicStart: 30-28-3111Brgvncoq ScreeningDiabetes ScreeningParkwood Hospital Start: 01-16-2026 End: 27-21-9993Lfyvksq encounter kecesmttk32/06/2026 10:00 AM EDT Office Visit [facility] [address] [place] [address] [address] [place] [phone] Pérez Hubbard, DO [address] [place] [address] [place] [address] NOMTorito ACEVEDO OBStart: 11-11-2025 End: 99-61-9187Mclphrt encounter kdwysuyfy42/01/2026 2:30 PM EDT Office Visit Radiation Oncology [address] [place] [address] Toribio Michaud MD [address] [place] [address] 1 year follow upRadiation OncologyComment on above:1 year follow upStart: 11-03-2025 End: 46-85-2908Leknlnq encounter /23/2026 10:20 AM EDT Appointment [facility] [place] [address] [place] [address] MRI Rectum W/ & W[facility] Radiology MRIComment on above: MRI Rectum W/ & W/O IVCStart: 11-02-2025 End: 29-74-5022UI Abdomen W contrast IVCT ABDOMEN W IVCON Radiology Routine Expected: 11/02/2025, Expires: 12/02/2025leveland ClinicComment on above: Expected: 11/02/2025, Expires: 12/02/2025Start: 11-02-2025 End: 82-76-1161OV Chest W contrast IVCT CHEST W IVCON Radiology Routine Expected: 11/02/2025, Expires: 12/02/2025leveland ClinicComment on above: Expected: 11/02/2025, Expires: 12/02/2025Start: 11-02-2025 End: 86-09-4663NM Pelvis WO contrastMRI RECTUM WO/W IVCON Radiology Routine Expected: 11/02/2025, Expires: 12/02/2025[facility] Work Phone: Comment on above:Expected: 11/02/2025, Expires: 12/02/2025Start: 46-89-8011LCRLPHIV SCREENDIABETES SCREENCleveland ClinicStart: 10-27-2025 End: 81-97-9472Vcglila encounter prtifuuvd43/16/2026 2:15 PM EDT Appointment Radiology Pet CT [address] [place] [address] CT chest/abdom w/IVCRadiology Pet CTComment on above:CT chest/abdom w/IVCStart: 36-26-9983VCCCEHKD SCREENDIABETES SCREENCleveland Clinic Avon Hospitaltart: 08-01-2025 DIABETES SCREENDIABETES SCREENCleveland Clinic Avon Hospitaltart: 27-43-3266HFYGBVEU SCREEN DIABETES SCREENCleveland Clinic Avon Hospitaltart: 89-09-6831XHMTLVBP SCREENDIABETES SCREEN [facility]: 03-28-1069ZAFYOPNT SCREENDIABETES SCREENParkwood Hospital Start: 84-51-5871CUPNJDHJ SCREENDIABETES SCREENCleveland Clinic Avon Hospitaltart: 06-14-2025 DIABETES SCREENDIABETES SCREENCleveland Clinic Avon Hospitaltart: 06-10-2025 End: 87-66-0469Judhzrm encounter bzpnxmoah12/28/2025 3:00 PM EST Office Visit Colorectal Surgery [address] [place], [place] [phone] Jeanette Wang APRN.MANAGER TALENT ACQUISITION [address] [place] [address] 6 months follow up per Dr. Lawrenceectal Surgery Comment on above:6 months follow up per Dr. Suarez: 82-30-6095PMQSIEKK SCREENDIABETES SCREENCleveland Clinic Avon Hospitaltart: 34-30-9587HOPEDBVM SCREENDIABETES SCREENCleveland Clinic Avon Hospitaltart: 04-22-2025 End: 61-29-7398Rpbjhs-up ygjhohgsj74/10/2025 2:00 PM EDT Visit (SP) Office Hematology/Oncology [address] [place], [place] [phone] Paco Bonds MD [address] [place] [address] 6 month follow up and labHematology/OncologyComment on above: 6 month follow up and labStart: 04-22-2025 End: 80-71-4596Njswlvx encounter aqbjeubyv00/10/2025 1:45 PM EDT Office Visit [facility] [address] [facility] [place] [address] 6 month follow up and labNortAscension Genesys Hospital LaboratoryComment on above:6 month follow up and labStart: 72-10-0312Jrqrhcozn vaccinationInfluenza Vaccine (Season Ended)[facility]: 01-10-2025 End: 82-27-0120TPQ Skeletal system Views for bone densityDEXA bone density Imaging Routine Postmenopausal state Expected: 01/10/2025 (Approximate), Expires:01/10/2026[facility] Work Phone: comment on above:Expected: 01/10/2025 (Approximate), Expires: 01/10/2026Start: 01-10-2025 End: 74-65-1685Dmbrlou encounter kldoogxbd14/30/2025 11:00 AM EDT Office Visit [facility] [address] [place] [phone] Pérez Hubbard, DO [address] [place] [address] NOMS BCP OBStart: 11-26-2024 End: 15-87-9378Rckacqe encounter procedureColorectal SurgeryComment on above:Est Pt: 6 mo f/upEst Pt: 6 mo f/up, anal cancer surveillanceStart: 11-02-2024 End: 60-41-9376Fcfrkb-up xbakkjimi93/22/2025 1:40 PM EDT Visit (SP) Office Hematology/Oncology [address] [place], [place] [phone] Paco Bonds MD [address] [place] [address] 6 month follow up lab-SEES Jaswant afterHematology/Oncology Comment on above:6 month follow up lab-SEES Jaswant Kernsart: 11-02-2024 End: 93-04-4602Tkagvod encounter procedurertAscension Genesys Hospital LaboratoryComment on above:6 month follow up labFollowupStart: 11-01-2024 End: 66-29-4216Wqghls-up akzunnadd60/21/2025 3:00 PM EDT Visit (SP) Office Hematology/Oncology [address] [place], [place] [phone] Paco Bonds MD [address] [place] [address] 6 month follow up lab-SEETorito Michaud beforeHematology/Oncology Comment on above:6 month follow up lab-VITO Michaud beforeStart: 11-01-2024 End: 49-79-9976Sdicywd encounter procedureRadiation OncologyComment on above: Followup6 month follow up labStart: 10-28-2024 End: 66-33-7144Trranra encounter xavswxxzd73/17/2025 10:15 AM EDT Appointment Radiology Pet CT [address] [place] [address] CT CHEST A Radiology Pet CTComment on above:CT CHEST AStart: 10-26-2024 End: 47-44-4723ML Abdomen W contrast IVCT ABDOMEN W IVCON Radiology Routine Expected: 10/26/2024, Expires: 11/25/2024leveland ClinicComment on above: Expected: 10/26/2024, Expires: 11/25/2024Start: 10-26-2024 End: 79-32-2463ZR Chest W contrast IVCT CHEST W IVCON Radiology Routine Expected: 10/26/2024 (Approximate), Expires: 11/25/2024[facility] Work Phone: Comment on above:Expected: 10/26/2024 (Approximate), Expires: 11/25/2024Start: 10-26-2024 End: 96-91-7223RX Pelvis WO contrastMRI RECTUM WO/W IVCON Radiology Routine Malignant neoplasm of pelvis (HCC) Expected: 10/26/2024 (Approximate), Expires: 11/25/2024levelunc health ClinicComment on above:Expected: 10/26/2024 (Approximate), Expires: 11/25/2024Start: 10-26-2024 End: 43-69-2476Acxrivk encounter hnikinfqp56/15/2025 10:00 AM EDT Appointment RADIO MRI [facility] [address] [place] [address] MRI RECTUMRADIO MRI [facility]ITALComment on above:MRI RECTUM Start: 10-25-2024 End: 74-10-5741PQR W Auto Differential panel - BloodCOMPLETE BLOOD COUNT AND DIFFERENTIAL Lab Routine Anal cancer (HCC) POTS (postural orthostatic tachy cardia syndrome) Expected: 10/25/2024, Expires: 01/24/2025[facility] Work Phone: Comment on above:Expected: 10/25/2024, Expires: 01/24/2025Start: 10-25-2024 End: 30-05-5717Atwaxcypkdqkx metabolic 2000 panel - Serum or PlasmaCOMPREHENSIVE METABOLIC PANEL Lab Routine Anal cancer (HCC) POTS (postural orthostatic tachycardia syndrome) Expected: 10/25/2024, Expires: 01/24/2025[facility] Comment on above:Expected: 10/25/2024, Expires: 01/24/2025Start: 04-30-2024 End: 47-29-1873Vpjksvu encounter ckuujvhcp96/18/2024 4:00 PM EDT Office Visit Colorectal Surgery [address] [facility] [address] [place], [place] [phone] Phil Dougherty MD [address] [facility] [address] [place] [address] est pt: 6 month follow upColorectal SurgeryComment on above:est pt: 6 month follow upStart: 04-27-2024 End: 76-32-2202HPU W Auto Differential panel - BloodCOMPLETE BLOOD COUNT AND DIFFERENTIAL Lab Routine Anal cancer (HCC) POTS (postural orthostatic tachy cardia syndrome) Expected: 04/27/2024 (Approximate), Expires: 10/26/2024 [facility] Work Phone: Comment on above:Expected: 04/27/2024 (Approximate), Expires: 10/26/2024Start: 04-27-2024 End: 61-05-4871Xvlmqxdfmnnxa metabolic 2000 panel - Serum or PlasmaCOMPREHENSIVE METABOLIC PANEL Lab Routine Anal cancer (HCC) POTS (postural orthostatic tachycardia syndrome) Expected: 04/27/2024 (Approximate), Expires: 10/26/2024 [facility] Work Phone: Comment on above:Expected: 04/27/2024 (Approximate), Expires: 10/26/2024Start: 04-26-2024 End: 59-83-7941Xeekxx-up jvdnfvuhf00/14/2024 2:45 PM EDT Visit (SP) Office Hematology/Oncology [address] [place], [place] [phone] Paco Bonds MD [address] [place] [address] 6 month follow up with labHematology/OncologyComment on above:6 month follow up with labStart: 04-26-2024 End: 49-18-3150Ytudkuq encounter llmhycile50/14/2024 2:30 PM EDT Office Visit [facility] [address] [place] [address] [place] [address] 6 month follow up with labNortAscension Genesys Hospital LaboratoryComment on above:6 month follow up with labStart: 75-21-8680Ckxge-19 Vaccine ( season)Covid-19 Vaccine ( season)[facility]: 20-82-3755Zjuqq-19 Vaccine ( season)Covid-19 Vaccine ( season)[facility]: 45-91-5806Xziqjevpx vaccinationCleveland Clinic Avon Hospitaltart: 10-28-2023 End: 00-02-0528CYU W Auto Differential panel - BloodCBC + DIFF Lab Routine Anal cancer (HCC) POTS (postural orthostatic tachycardia syndrome) Expected: 10/28/2023 (Approximate), Expires: 04/28/2024[facility] Work Phone: Comment on above:Expected: 10/28/2023 (Approximate), Expires: 04/28/2024Start: 10-28-2023 End: 17-53-1749Gjsldqmkqnriy metabolic 2000 panel - Serum or PlasmaCOMP METABOLIC PANEL Lab Routine Anal cancer (HCC) POTS (postural orthostatic tachycardia syndrome)Expected: 10/28/2023 (Approximate), Expires: 04/28/2024 [facility] Work Phone: Comment on above:Expected: 10/28/2023 (Approximate), Expires: 04/28/2024Start: 07-25-2023 End: 90-65-2039Cj thorax w/o contrast materialCT CHEST WO IVCON Radiology Routine Malignant neoplasm of anus (HCC) Expected: 07/25/2023, Expires: 12/05/2023[facility] Work Phone: Comment on above:Expected: 07/25/2023, Expires: 12/05/2023Start: 07-25-2023 End: 43-16-2857Nbr pelvis w/o & w/contrast materialMRI RECTUM WO/W IVCON Radiology Routine Malignant neoplasm of anus (HCC) Expected: 07/25/2023, Expir es: 12/05/2023[facility] Work Phone: Comment on above:Expected: 07/25/2023, Expires: 12/05/2023Start: 97-25-0266Xhzzbcggsd Health ScreeningBehavioral Health ScreeningCleveland Clinic Avon Hospitaltart: 25-74-8584Zkgmttisat AssessmentDepression AssessmentCleveland Clinic [facility]on Hospitaltart: 04-29-2023 End: 74-83-9202HIH W Auto Differential panel - BloodCBC + DIFF Lab Routine Anal cancer (HCC) POTS (postural orthostatic tachycardia syndrome) Expected: 04/29/2023 (Approximate), Expires: 10/29/2023[facility] Work Phone: Comment on above:Expected: 04/29/2023 (Approximate), Expires: 10/29/2023Start: 04-29-2023 End: 59-96-0063Ayqgzbsbwqmgp metabolic 2000 panel - Serum or PlasmaCOMP METABOLIC PANEL Lab Routine Anal cancer (HCC) POTS (postural orthostatic tachycardia syndrome)Expected: 04/29/2023 (Approximate), Expires: 10/29/2023 [facility] Work Phone: Comment on above:Expected: 04/29/2023 (Approximate), Expires: 10/29/2023Start: 04-28-2023 End: 457664-sdnoeclplkdezg D3 [Mass/volume] in Serum or PlasmaVITAMIN D 25 HYDROXY Lab Routine Encounter for screening for osteoporosis Symptomatic menopausal orfemale climacteric states Rectal cancer (HCC) Expected: 04/28/2023, Expires: 06/28/2023[facility] Work Phone: Comment on above:Expected: 04/28/2023, Expires: 06/28/2023Start: 45-25-8285Luvjh-19 Vaccine ( season)Covid-19 Vaccine ( season)[facility]: 70-16-6667Sfjvvceff vaccination [facility]: 12-02-2022 End: 57-13-0272NGE W Auto Differential panel - BloodCBC + DIFF Lab Routine POTS (postural orthostatic tachycardia syndrome) Anal cancer (HCC) Expected: 12/02/2022 (Approximate), Expires: 09/04/2023[facility] Work Phone: Comment on above:Expected: 12/02/2022 (Approximate), Expires: 09/04/2023Start: 12-02-2022 End: 05-84-0532Meelvozjxoflz metabolic 2000 panel - Serum or PlasmaCOMP METABOLIC PANEL Lab Routine POTS (postural orthostatic tachycardia syndrome) Anal cancer (HCC)Expected: 12/02/2022 (Approximate), Expires: 09/04/2023 [facility] Work Phone: Comment on above:Expected: 12/02/2022 (Approximate), Expires: 09/04/2023Start: 10-14-2022 End: 56-05-9608Xbn pelvis w/o & w/contrast materialMRI RECTUM WO/W IVCON Radiology Routine Malignant neoplasm of anus (HCC) Expected: 10/14/2022, Expir es: 10/04/2023[facility] Work Phone: Comment on above:Expected: 10/14/2022, Expires: 10/04/2023Start: 08-28-2022 End: 13-75-6546SNL W Auto Differential panel - BloodCBC + DIFF Lab Routine Anal cancer (HCC) Expected: 08/28/2022 (Approximate), Expires: 07/17/2023[facility] Work Phone: Comment on above:Expected: 08/28/2022 (Approximate), Expires: 07/17/2023Start: 08-28-2022 End: 31-59-0092Sgbyljkfuscgb metabolic 2000 panel - Serum or PlasmaCOMP METABOLIC PANEL Lab Routine Anal cancer (HCC) Expected: 08/28/2022 (Approximate), Expires: 07/17/2023[facility] Work Phone: Comment on above:Expected: 08/28/2022 (Approximate), Expires: 07/17/2023Start: 08-28-2022 End: 20-25-6883Wq abdomen & pelvis w/contrast materialCT ABD/PEL W IVCON Radiology Routine Anal cancer (HCC) Expected: 08/28/2022 (Approximate), Expires: 08/16/2023[facility] Work Phone: Comment on above:Expected: 08/28/2022 (Approximate), Expires: 08/16/2023Start: 08-28-2022 End: 93-99-3234MM CHEST W IVCONCT CHEST W IVCON Radiology Routine Anal cancer (HCC) Expected: 08/28/2022 (Approximate), Expires: 08/16/2023[facility] Work Phone: Comment on above:Expected: 08/28/2022 (Approximate), Expires: 08/16/2023Start: 71-57-4259EKKYLDBRRJ ASSESSMENTDEPRESSION ASSESSMENT [facility]: 07-02-2022 End: 18-72-0000ZTY W Auto Differential panel - BloodCBC + DIFF Lab Routine Anal cancer (HCC) POTS (postural orthostatic tachycardia syndrome) Expected: 07/02/2022, Expires: 09/01/2022[facility] Work Phone: Comment on above:Expected: 07/02/2022, Expires: 09/01/2022Start: 07-02-2022 End: 27-12-5075Kzltzzsegeghv metabolic 2000 panel - Serum or PlasmaCOMP METABOLIC PANEL Lab Routine Anal cancer (HCC) POTS (postural orthostatic tachycardia syndrome)Expected: 07/02/2022, Expires: 09/01/2022[facility] Work Phone: Comment on above:Expected: 07/02/2022, Expires: 09/01/2022Start: 06-12-2022 End: 17-71-4434Lmblgatitijksrqqed ( test) [Presence] in UrineHCG QUAL UR Lab Routine Anal cancer (HCC) Expected: 06/12/2022, Expires: 08/12/2022 [facility] Work Phone: Comment on above:Expected: 06/12/2022, Expires: 08/12/2022Start: 73-32-6128Loihbmjhq vaccinationINFLUENZA (#1)[facility] Start: 32-58-9850KMUFZQYSUB ASSESSMENTDEPRESSION ASSESSMENTParkwood Hospital Start: 58-95-5373Dkvssdoenxzn Vaccine: 50+ (1 of 1 - PCV)Pneumococcal Vaccine: 50+ (1 of 1 - PCV)[facility]: 26-75-5215YIMPYDYV VACCINE (1 of 2) SHINGRIX VACCINE (1 of 2)[facility]: 48-78-4304YRBBVAMJS (FIT-DNA) COLOGUARD (FIT-DNA)[facility]: 68-71-7120XbwkmrxiebhAHQKJBHNCOI [facility]: 92-67-2239GRIJACAMVB CANCER SCREENINGCOLORECTAL CANCER SCREENINGC[facility] Clinic [facility] Hospitaltart: 96-80-7565LQ COLONOGRAPHYCT COLONOGRAPHY [facility]: 94-66-2223CDGSN OCCULT BLOODFECAL OCCULT BLOODC[facility] Clinic [facility] Hospitaltart: 10-58-2040Syjlt 1996 panel - Serum or PlasmaLipid Screening [facility]: 28-31-6571Gsxrl panelLipid ScreeningParkwood Hospital Start: 73-77-2276PVINU SCREENLIPID SCREENCleveland Clinic Avon Hospitaltart: 2014 Screening for malignant neoplasm of colonC[facility] Clinic [facility] Hospitaltart: 2014 SIGMOIDOSCOPYSIGMOIDOSCOPYC[facility] Clinic [facility] Hospitaltart: 80-25-6501RcpyqqkaxvbCpsatjlny ClinicStart: 72-98-5049Fbkrgafyc for malignant neoplasm of breastMammogram ScreeningC[facility] Clinic [facility] Hospitaltart: 87-60-6727TWK TESTINGHPV TESTINGParkwood Hospital Start: 71-69-5489Nrihfcxgq for malignant neoplasm of cervixHPV TestingC[facility] Clinic [facility] Hospitaltart: 02-38-8415STP TESTINGPAP TESTINGC[facility] Clinic [facility] Hospitaltart: 1990 Screening for malignant neoplasm of cervixC[facility] Clinic [facility] Hospitaltart: 02-08-1988 Hepatitis B Vaccine (1 of 3 - 19+ 3-dose series)Hepatitis B Vaccine (1 of 3 - 19+ 3-dose series)[facility]: 74-17-1046UDPIAKPO VACCINE (1 of 2) SHINGRIX VACCINE (1 of 2)[facility]: 02-37-1334Yzjge microalbumin profileC[facility] Clinic [facility] Hospitaltart: 88-28-9275Bxkgjzn ScreeningAnxiety Screening [facility]: 95-33-1347Nbejzrnyhx ScreeningDepression Screening [facility]: 90-92-1248FCHTLBPDY C SCREENINGHEPATITIS C SCREENING [facility]: 68-79-8647Eikcslbte C screeningHepatitis C Screening [facility]: 73-29-7635QDQ SCREENINGHIV SCREENINGPark[facility] Hospital Start: 01-74-0588TNJ screeningHIV ScreeningC[facility] Clinic [facility] Hospitaltart: 1975 PNEUMOCOCCAL (1 - PCV)PNEUMOCOCCAL (1 - PCV)[facility]: 1969 COVID-19 VACCINE (#1)COVID-19 VACCINE (#1)[facility]: 1969 HEPATITIS B (1 of 3 - 3-dose series)HEPATITIS B (1 of 3 - 3-dose series) [facility]: 53-00-2049Pdlrbepif B Vaccine (1 of 3 - 3-dose series) Hepatitis B Vaccine (1 of 3 - 3-dose series)[facility] End: 06-25-3952GWA W Auto Differential panel - BloodCBC + DIFF Lab Routine Anal cancer (HCC) Once per week for 10 Occurrences starting 05/27/2022 until 05/27/2023, [facility]: Comment on above:Once per week for 10 Occurrences starting 05/27/2022 until 05/27/2023, 1 completed End: 68-86-2079Kgfdnpyrzjwry metabolic 2000 panel - Serum or PlasmaCOMP METABOLIC PANEL Lab Routine Anal cancer (HCC) Once per week for 10 Occurrences starting 05/27/2022 until 05/27/2023, 1 [facility] Work Phone: Comment on above:Once per week for 10 Occurrences starting 05/27/2022 until 05/27/2023, 1 completed End: 89-43-0689Gp abdomen w/contrast materialCT ABDOMEN W IVCON Radiology Routine Anal cancer (HCC) 1 Occurrences starting 05/02/2022 until 06/01/2023 [facility] Work Phone: Comment on above:1 Occurrences starting 05/02/2022 until 06/01/2023 End: 71-62-0742MV CHEST W IVCONCT CHEST W IVCON Radiology Routine Anal cancer (HCC) 1 Occurrences starting 05/02/2022 until 06/01/2023[facility] Work Phone: Comment on above:1 Occurrences starting 05/02/2022 until 06/01/2023 End: 74-07-6560JF Chest WO contrastCT CHEST WO IVCON Radiology Routine Malignant neoplasm of anus (HCC) 1 Occurrences starting 09/12/2023 until 10/11/2024 [facility] Work Phone: Comment on above:1 Occurrences starting 09/12/2023 until 10/11/2024T SIM PLANNING RADIATION ONCOLOGYCT SIM PLANNING RADIATION ONCOLOGY Radiology Routine Anal cancer (HCC) [facility]: [facility] Work Phone: Comment on above:Ordered: 05/27/2022 End: 93-37-6734VXB-AXIAL SKELETONDXA-AXIAL SKELETON Radiology Routine Encounter for screening for osteoporosis Symptomatic menopausal or female climacteric states Rectal cancer (HCC) 1 Occurrences starting 02/12/2023 until 03/11/2024 [facility] Work Phone: Comment on above:1 Occurrences starting 02/12/2023 until 03/11/2024 End: 06-54-5139TN Abdomen WO and W contrast IVMRI ABDOMEN WO/W IVCON Radiology Routine Malignant neoplasm of anus (HCC) 1 Occurrences starting 09/12/[address] [place] [address] Work Phone: Comment on above:1 Occurrences starting 09/12/2023 until 10/11/2024 End: 48-27-5020QJ Pelvis WO contrastMRI RECTUM WO/W IVCON Radiology Routine Malignant neoplasm of anus (HCC) 1 Occurrences starting 09/12/[address] [place] [address] Work Phone: Comment on above:1 Occurrences starting 09/12/2023 until 10/11/2024 End: 16-53-4301Yov pelvis w/o & w/contrast materialMRI RECTUM WO/W IVCON Radiology Routine Anal cancer (HCC) 1 [facility]ur[facility] 05/02/2022 [facility] Work Phone: Comment on above:1 Occurrences starting 05/02/2022 until 06/01/2023THIN PREP TIS PAP AND HR HPV DNATHIN PREP TIS PAP AND HR HPV DNA Pathology and Cytology Routine Well woman exam with routine gynecological exam Ordered: 01/10/2025[facility] HealthcareComment on above:Ordered: 5[facility] ClinicC[facility] ClinicC[facility] ClinicCleveland ClinicCleveland ClinicCleveland ClinicCleveland ClinicCleveland ClinicCleveland ClinicC[facility] Payers DatePayer CategoryPayerPolicy ID2023Medicaid (Managed Care)[employer] [id number] 2020Medicaid [id number] ALISON O [id number] 2013-Present [phone] [address] [place] [address] [facility] [id number] .1.043809.3.57[id number] .1.692069.3.57[id number] .1.998632.3.57[id number] .1.292154.3.57[id number] 2..840.1.608219.3.57[id number] 2..840.1.465863.3.57[id number] 2..840.1.619846.3.57[id number] 2..840.1.636252.3.57[id number] 2..840.1.351759.3.57[id number] 2..840.1.008915.3.57[id number] 2.840.1.713644.3.57[id number] 2..840.1.624099.3.579.2.1259 [id number] 1960Private Health [id number] Social History DateTypeDetailFacilityStart: 02-20-2022 End: 15-52-3968Hswricn smoking statusNever smoked tobacco (finding)[facility] Tobacco smoking statusNeverGeneral [facility] [place] Start: 01-16-2023 End: 31-36-9471Dvp Assigned At BirthFemaleGeneral [facility] [place] Start: 05-02-2022 End: 97-21-5454Zkvgczy use and exposureSmokeless tobacco non-userCleveland Clinic Avon Hospitaltart: 05-02-2022 End: 12-05-0970Mjinvmj intakeCurrent non-drinker of alcohol (finding)[facility]: 12-86-1626Enr Assigned At BirthNot on fileCleveland Clinic [facility]on Hospitaltart: 04-22-2022 End: 68-92-2605Wwvzxhzk to SARS-CoV-2 (event)YesCleveland Clinic Avon Hospitaltart: 04-26-2022 End: 87-30-2571Wjbvpqea to SARS-CoV-2 (event)Not sureCleveland Clinic Avon Hospitaltart: 01-16-2023 End: 51-89-3646Maokvzw of Social functionParkwood HospitalTobacco smoking status NHISTobacco smoking consumption unknownNOMS HealthcareStart: 83-28-9434Bjiczpbgz beverage intakeEx-drinker (finding)[facility] HealthcareNEGATED: Highlighted row Start: NINFHistory of tobacco usePassive smokerParkwood Hospital Functional Status WqdmRjappebmbrXgtyhbFeaaynst38-95-9547Ulzfeufcth StatusN/AGeneral Surgery [place] Clinical Notes 02-20-2022 to 04-22-2025 Note Date & [id number] NoteHNO ID: [id number] Author: VENUS GARNER APRN.MANAGER TALENT ACQUISITION Service: ? Author Type: Nurse Practitioner Type: Progress Notes Filed: 04/24/2025 13:46 Note Text: NAME: Kirt Reyna CLINIC NO.: [id number] DATE OF SERVICE: April 22, 2025 ([place]) Some elements in this clinic note that are critical to medical decision making have been carefully reviewed and included from a prior clinic note dated: November 02, 2024 ([place]) Referring Provider: Dr. Phil Dougherty Additional Clinicians involved in Kirt Reyna's care: Dr. Sondra Liu, Dr. Vitaly Vaughn, Dr. 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 Chemo RT started 06/13/2022. Stopped Xeloda pills on 07/01/2022 due to developing POTS symptoms. Good response ~ 1 month following RT. Continued response after treatment conclusion with abbreviated Xeloda. SUMMARIZED PLAN: RTC in 6 months - coordinate same day with Dr. Michaud Labs on return - CBC, CMP Repeat scans per Dr. Michaud Follow up with Dr. Dougherty as scheduled AI ASSISTED A/P: 1. Anal cancer (HCC) (C21.0) Patient is currently stable and asymptomatic, with no active bleeding or urinary issues. Next PET scan is scheduled for 10/27 and MRI for 11/03, with follow-up with Dr. Michaud in November. - Continue routine surveillance with PET scan on 10/27 and MRI on 11/03. - Follow-up with Dr. Michaud in November. - Advised patient to report any new or unusual symptoms promptly. - Return to clinic in November, coordinated with Dr. Michaud's appointment. 2. POTS (postural orthostatic tachycardia syndrome) (G90.A) CASE HISTORY: Reverse Chronological Order 10/28/2024 - [...] extension through right lower rectal wall into th (more content not included)...[facility]06-30-2025 History of Present illness Narrative* Shannen Sheppard LPN - 01/10/2025 11:00 AM EDT Reason for Appointment: Patient ID: Cherie Reyna [...] nursing note reviewed. Exam conducted with a equity trader present. Vitals: There is no height or [...] them. Patient can also view results via [employer]. I reinforced importance of condom use for [...] of: Pérez Hubbard DO documented in this encounterThe Rehabilitation [id number] History of Present illness Narrative* Phil Dougherty MD - 11/26/2024 3:40 PM EDT COLORECTAL SURGERY November 26, 2024 Kirt Reyna [...] differently: No sig reported) 90 tablet 1 Nuvocbayb-Fhiyautmtduqza-Ycyq 2.8-0.55 % gel Use 1 Applicator by [...] exam reveals no gross blood or masses Car And Yard Supervisor present: Yes, Padmini Garcia Anoscopy: The patient was placed in chest-knee position. After digital exam with a lubricated finger, the scope was easily inserted. Posterior scar noted. Otherwise normal mucosa was noted. Anoscopy completed. The sensitive examination was discussed with the Patient or Patient's Authorized Product Support Technician. Asapplicable, any other physician, advance practice provider, medical student, or other health professional student that will be observing or involved in the sensitive examination for educational or training purposes was discussed with the Patient or Authorized Product Support Technician. The Patient or Authorized Product Support Technician has agreed to proceed with the sensitive [...] Dougherty MD Colorectal Surgery documented in this encounterParkwood Hospital05-16-2025 NoteHNO ID: [id number] Author: PHIL DOUGHERTY MD Service: ? Author [...] differently: No sig reported) 90 tablet 1 Pnboxxcvc-Vgrxcxeqgrrmrq-Lseb 2.8-0.55 % gel Use 1 Applicator by [...] exam reveals no gross blood or masses Car And Yard Supervisor present: Yes, Padmini Garcia Anoscopy: The patient was placed in chest-knee position. After digital exam with a lubricated finger, the scope was easily inserted. Posterior scar noted. Otherwise normal mucosa was noted. Anoscopy completed. The sensitive examination was discussed with the Patient or Patient's Authorized Product Support Technician. As applicable, any other physician, advance practice provider, medical student, or other health professional student that will be observing or involved in the sensitive examination for educational or training purposes was discussed with the Patient or Authorized Product Support Technician. The Patient or Authorized Product Support Technician has agreed to proceed with the sensitive [...] treatment plan: high Phil Dougherty MD [facility]04[facility]25 NoteHNO ID: [id number] Author: TORIBIO MICHAUD MD Service: ? Author Type: Physician Type: Progress Notes Filed: 11/17/2024 05:54 Note Text: Radiation Oncology - Follow Up Note PATIENT NAME: Kirt Reyna PATIENT DIAGNOSIS/PATIENT IDENTIFICATION: Ms. Reyna is a 54-year-old woman with [id number] squamous cell carcinoma of the anal canal. [...] VITAMIN ORAL) ondansetron (ZOFRAN) 8 mg tablet Hfxqdddec-Llytnsfulvobwe-Bdga 2.8-0.55 % gel multivitamin tablet acetaminophen/diphenhydramine (TYLENOL [...] Ms. Reyna is a 54-year-old woman with [id number] squamous cell carcinoma of the anal canal. [...] which included preparing to see the patient, owtx-pl-czdi patient care, and counseling and educating the patient/family/caregiver. This document has been created with the use of voice recognition technology. It may contain inaccuracies, misspellings, inaccurate syntax or inappropriate word context that are a result of the inadequacies/shortcomings of said technology/software.[place] [address]-22-2025 History of Present illness Narrative* Toribio Michaud MD - 11/02/2024 2:34 PM EDT Radiation Oncology - Follow Up Note PATIENT NAME: Kirt Reyna PATIENT DIAGNOSIS/PATIENT IDENTIFICATION: Ms. Reyna is a 54-year-old woman with [id number] squamous cell carcinoma of the anal canal. [...] VITAMIN ORAL) ondansetron (ZOFRAN) 8 mg tablet Fmqjmioow-Yzflnifzebqijo-Zlcm 2.8-0.55 % gel multivitamin tablet acetaminophen/diphenhydramine (TYLENOL [...] Ms. Reyna is a 54-year-old woman with [id number] squamous cell carcinoma of the anal canal. She completed a course of definitive concurrent chemoradiation therapy on 07/25/2022 (5600 cGy delivered in 28 fractions with partial course of Xeloda). Signed by: Toribio Michaud MD I spent a total of 20 minutes on the date of the service which included preparing to see the patient, zpnh-lc-xsxm patient care, and counseling and educating the patient/family/caregiver. This document has been created with the use of voice recognition technology. It may contain inaccuracies, misspellings, inaccurate syntax or inappropriate word context that are a result of the inadequacies/shortcomings of said technology/software. documented in this encounterParkwood Hospital04-22-2025 Instructions* Patient Instructions* Adri Ho - 11/02/2024 2:29 PM EDT RTC in 6 months - coordinate same day with Dr. Michaud Labs on return - CBC, CMP Repeat scans per Dr. Michaud Follow up with Dr. Dougherty as scheduled documented in this encounterParkwood Hospital04-22-2025 History of Present illness Narrative* Paco Bonds MD - 11/02/2024 1:40 PM EDT Images from the original note were not included. NAME: Kirt Reyna CLINIC NO.: [id number] DATE OF SERVICE: November 02, 2024 (Sangeetha) [...] 0.8 cm lesion. At the 10 o'clock positionis 2nd oval hypodense lesion measuring 2.7 x 2.7 x 2.8 mm. These correspond to the mammographic abno rmalities and complex cysts are favored. Three spot [...] right humerus - likely benign, 0.4 cm non- calcified pulmonary nodules, otherwise negative for metastatic disease. [...] felt the pain was muscular. She denies fevers,chills, night sweats and signs/symptoms of infection. Overall, she is doing well and offers no new c omplaints today. No new issues, problems or concerns. [...] US next week - will follow with senior underwriter for exam. Labs stable. Updated Visit, October [...] lidocaine. She denies fevers, chills and signs/symptoms ofinfection. She has the sweats which she states is from starting menopause. Overall, she is doing fairly well today. Updated Visit, July 01, 2022: Cherie returns for follow up. Starting having POTS symptoms on . Was worse over the weekend.Had dizziness, heart racing, BP dropping. She did [...] mouth sores. Her tongue has been bothering her.She had intermittent diarrhea and also constipation. She [...] Resp 16 Ht 5' 7.008 (1.70m) Wt 183lb 13.8 oz (83.4kg) SpO2 99% BMI 28.79 [...] VOMITING (Patient taking differently: No sig reported) Czxmqoobz-Pvjwlsqqapvvbb-Uejx 2.8-0.55 % gel Use 1 Applicator by [...] Once exam is complete flush line and de-accessaccording to line specific nursing protocol in the CT contrast administration guidelines link. iv contrast (will be provided with radiology test) CT ABD W -Inject, intravenously, once for 1 dose.No IV access, insert saline lock prior to the beginning of sedation, infusion, injection of imagingexam. Discontinue saline lock post exam. If Pt. [...] which included preparing to see the patient, xxuk-pl-jthf patient care, completing clinical documentation, performing a medically appropriate examination, counseling and educating the patient/family/caregiver, ordering medications, tests, or procedures, independently interpreting results (not separately reported), communicating results to the patient/family/caregiver, and care coordination (not separately reported). Paco Bonds MD, CPE Hematology and Oncology Services Provided at: [place], [place] Scribe Attestation: This note was scribed by Adri Ho on November 02, 2024 under the direction and supervision ofDr. Paco Bonds. I attest that all of the information documented is correct to the best of my knowledge. Provider Attestation: I, Paco Bonds MD, attest that all information documented by the above scribe is correct, and was supervised by me and under my direction. CC: Dr. Phil Liu documented in this encounterParkwood Hospital04-22-2025 NoteHNO ID: [id number] Author: PACO BONDS MD Service: ? Author Type: Physician Type: Progress Notes Filed: 11/02/2024 19:37 Note Text: NAME: Kirt Reyna [facility] NO.: [id number] DATE OF SERVICE: November 02, 2024 (Sangeetha) [...] diffusely (+) 02/20/2022 - (more content not included)...[facility]04-17-2025 History of Present illness Narrative* Giovanni Vaughn RN - 10/28/2024 10:15 AM EDT Radiology Service Progress Note DATE OF SERVICE: [...] Assigned female at . status: : No status:NO. ALLERGIES: Reviewed and unchanged CONTRAST ALLERGY: No [...] creatinine assay has traceable calibration to isotope dilution- mass spectrometry. Refer to KDIGO guidelines for clinical interpretation. In patients with unstable renal function, e.g. those with acute kidney injury, the eGFRmay not accurately reflect actual GFR. P.O.C.T. RESULTS: POC done: Yes, See Lab Tab October 28, 2024 TREATMENT: N/A IV SITE: Ambulatory: A peripheral IV was started in the Right antecubital site with a Angio cath: 20 gauge. IV SITE APPEARANCE: Clean,Dry and Intact SIGNATURE: Giovanni Vaughn RN PATIENT NAME: Kirt Reyna DATE: October 28, 2024 TIME: 10:33 AM * Jah Colbert RT(R) - 10/28/2024 10:15 AM EDT Radiology Service Progress Note PATIENT NAME: Kirt Reyna DATE OF SERVICE: October 28, 2024 TIME: 11:39 AM PATIENT IDENTITY VERIFICATION COMPLETED USING TWO (2) IDENTIFIERS: Name and Date of confirmedby patient verbally. FALL SCREENING: Has the patient had 2 falls in the last year or 1 fall with injury or currently using an Ambulatory Assistive Device (Walker, Cane, Wheelchair, Crutches, etc.)? No PATIENT GENDER DATA: Assigned female at . status: : No status:NO. PATIENT RELEVANT IMPLANT DATA REVIEWED: Not Applicable PATIENT PRESENTS WITH AN IMPLANTABLE OR ATTACHED EMERGENCY ROOM NURSE: No RADIOLOGY DEPARTMENT: CT; Exam(s) Completed: Abdomen and Chest PERIPHERAL IV DATA: Site assessment: Clean,Dry and Intact, Site disposition Discontinued SIGNED BY: RT Lily(Ange) October 28, 2024 11:39 AM documented in this encounterParkwood Hospital04-17-2025 NoteHNO ID: [id number] Author: JAH COLBERT RT(R) Service: ? Author [...] PATIENT PRESENTS WITH AN IMPLANTABLE OR ATTACHED EMERGENCY ROOM NURSE: No RADIOLOGY DEPARTMENT: CT; Exam(s) Completed: Abdomen and Chest PERIPHERAL IV DATA: Site assessment: Clean,Dry and Intact, Site disposition Discontinued SIGNED BY: MIYA Bautista) October 28, 2024 11:[address] [facility]04-17-2025 NoteHNO ID: [id number] Author: GIOVANNI VAUGHN RN Service: ? Author [...] Reyna DATE: October 28, 2024 TIME: 10:[address] [facility]04-15-2025 History of Present illness Narrative* Jose R Bernard, COAL GETTER - 10/26/2024 10:00 AM EDT Radiology Service Progress Note DATE OF SERVICE: [...] Assigned female at . status: : No status:NO. PATIENT RELEVANT IMPLANT DATA REVIEWED: Yes PATIENT PRESENTS WITH AN IMPLANTABLE OR ATTACHED EMERGENCY ROOM NURSE: No ALLERGIES: Reviewed and unchanged CONTRAST ALLERGY: NO. EXAM: MRI - CONTRAST TYPE: GROUP II PERIPHERAL IV DATA: Ambulatory: A peripheral IV was started in the Right antecubital site with a Angio cath: 24 gauge. RADIOLOGY DEPARTMENT: MR; Exam(s) Completed: Body: Rectal SIGNATURE: Jose R Bernard RRT PATIENT NAME: Kirt Reyna DATE: October 26, 2024 TIME: 11:28 AM documented in this encounterParkwood Hospital04-15-2025 NoteHNO ID: [id number] Author: JOSE R BERNARD RRT Service: Radiology Author Type: Land Classifier Type: Progress Notes Filed: 10/26/2024 11:30 Note [...] PATIENT PRESENTS WITH AN IMPLANTABLE OR ATTACHED EMERGENCY ROOM NURSE: No ALLERGIES: Reviewed and unchanged CONTRAST ALLERGY: NO. EXAM: MRI - CONTRAST TYPE: GROUP II PERIPHERAL IV DATA: Ambulatory: A peripheral IV was started in the Right antecubital site with a Angio cath: 24 gauge. RADIOLOGY DEPARTMENT: MR; Exam(s) Completed: Body: Rectal SIGNATURE: Jose R Bernard RRT PATIENT NAME: Kirt Reyna DATE: October 26, 2024 TIME: 11:28 [facility]11-15-2024 History of Present illness Narrative* Phil Dougherty MD - 05/28/2024 3:40 PM EST COLORECTAL SURGERY May 28, 2024 Kirt Reyna [...] taking differently: As needed) 90 tablet 1 Cajkbpdsv-Ykofyygflxrysm-Vtni 2.8-0.55 % gel Use 1 Applicator by [...] exam reveals no gross blood or masses Car And Yard Supervisor present: Yes, Padmini Garcia Anoscopy: The patient was placed in chest-knee position. After digital exam with a lubricated finger, the scope was easily inserted. Posterior scar noted. Otherwise normal mucosa was noted. Anoscopy completed. The sensitive examination was discussed with the Patient or Patient's Authorized Product Support Technician. Asapplicable, any other physician, advance practice provider, medical student, or other health professional student that will be observing or involved in the sensitive examination for educational or training purposes was discussed with the Patient or Authorized Product Support Technician. The Patient or Authorized Product Support Technician has agreed to proceed with the sensitive examination. (Sensitive examination includes inspection and/or palpation of the breasts, pelvis, prostate and anorectal regions) Assessment Assessment and Plan: Kirt Reyna is a 54 year old female with anal cancer status post chemoradiation with no evidenceof residual disease. She has imaging scheduled for October. She will return to see me in 6 months foranother inguinal node and anoscopic exam Medical Decision [...] Dougherty MD Colorectal Surgery documented in this encounterParkwood Hospital11-15-2024 NoteHNO ID: [id number] Author: PHIL DOUGHERTY MD Service: ? Author [...] taking differently: As needed) 90 tablet 1 Cwbgnpiid-Qdfdobtmabxiti-Ynnw 2.8-0.55 % gel Use 1 Applicator by [...] exam reveals no gross blood or masses Car And Yard Supervisor present: Yes, Padmini Garcia Anoscopy: The patient was placed in chest-knee position. After digital exam with a lubricated finger, the scope was easily inserted. Posterior scar noted. Otherwise normal mucosa was noted. Anoscopy completed. The sensitive examination was discussed with the Patient or Patient's Authorized Product Support Technician. As applicable, any other physician, advance practice provider, medical student, or other health professional student that will be observing or involved in the sensitive examination for educational or training purposes was discussed with the Patient or Authorized Product Support Technician. The Patient or Authorized Product Support Technician has agreed to proceed with the sensitive [...] treatment plan: high Phil Dougherty MD [facility] SurgeryMer[facility]10-14-2024 NoteHNO ID: [id number] Author: GERARDO MCKINNON APRN.FLORINA Service: ? Author Type: Nurse Practitioner Type: Progress Notes Filed: 04/26/2024 21:05 Note Text: NAME: Kirt Reyna CLINIC NO.: [id number] DATE OF SERVICE: APRIL 26, 2024 (Dean) [...] her constipation with fibe (more content not included)...[facility]10-14-2024 History of Present illness Narrative* Geradro Mckinnon APRN.MANAGER TALENT ACQUISITION - 04/26/2024 3:27 PM EDT Images from the original note were not included. NAME: Kirt Reyna CLINIC NO.: [id number] DATE OF SERVICE: APRIL 26, 2024 (Dean) [...] 0.8 cm lesion. At the 10 o'clock positionis 2nd oval hypodense lesion measuring 2.7 x 2.7 x 2.8 mm. These correspond to the mammographic abno rmalities and complex cysts are favored. Three spot [...] right humerus - likely benign, 0.4 cm non- calcified pulmonary nodules, otherwise negative for metastatic disease. [...] felt the pain was muscular. She denies fevers,chills, night sweats and signs/symptoms of infection. Overall, she is doing well and offers no new c omplaints today. No new issues, problems or concerns. [...] US next week - will follow with senior underwriter for exam. Labs stable. Updated Visit, October [...] lidocaine. She denies fevers, chills and signs/symptoms ofinfection. She has the sweats which she states is from starting menopause. Overall, she is doing fairly well today. Updated Visit, July 01, 2022: Cherie returns for follow up. Starting having POTS symptoms on . Was worse over the weekend.Had dizziness, heart racing, BP dropping. She did [...] mouth sores. Her tongue has been bothering her.She had intermittent diarrhea and also constipation. She [...] AND VOMITING (Patient taking differently: As needed) Zpiqqrghb-Uxxogbvlcnkpko-Vtxh 2.8-0.55 % gel Use 1 Applicator by [...] which included preparing to see the patient, dihf-kr-efky patient care, completing clinical documentation, obtaining and/or reviewing separately obtained history, performing a medically appropriate examination, counseling and educating the pat ient/family/caregiver, ordering medications, tests, or procedures, independently interpreting results (not separately reported), and communicating results to the patient/family/caregiver. Gerardo Mckinnon APRN.FLORINA Hematology and Oncology Services Provided at: [place], [place] Scribe Attestation: This note was scribed by Adri Gilbert on October 27, 2023 under the direction and supervision ofDr. Paco Bonds. I attest that all of the information documented is correct to the best of my knowledge. Provider Attestation: I, Paco Bonds MD, attest that all information documented by the above scribe is correct, and was supervised by me and under my direction. CC: Dr. Phil Liu documented in this encounterParkwood Hospital05-31-2024 History of Present illness Narrative* Phil Dougherty MD - 12/12/2023 2:00 PM EDT COLORECTAL SURGERY December 12, 2023 Kirt A [...] taking differently: As needed) 90 tablet 1 Ddhwnpvbe-Qofnhmgnpwzrio-Evjn 2.8-0.55 % gel Use 1 Applicator by [...] exam reveals no gross blood or masses Car And Yard Supervisor present: Yes, Padmini Garcia Anoscopy: The patient [...] Dougherty MD Colorectal Surgery documented in this encounterParkwood Hospital04-19-2024 Nurse Note* Padmini Garcia OCCA - 10/31/2023 4:11 PM EDT What is the reason for your visit today? F/u, anal cancer surveillance Who is your referring physician? Are you having poor oral intake? NO Have you had unintentional weight loss of 15 lbs/7 Kg in the last 3-6 months? NO Bowels: regular Wound: Temperature: No Drains: No documented in this encounterParkwood Hospital04-19-2024 History of Present illness Narrative* Phil Dougherty MD - 10/31/2023 4:00 PM EDT COLORECTAL SURGERY October 31, 2023 Kirt Reyna [...] FOR NAUSEA AND VOMITING 90 tablet 1 Fvprrhwuh-Lwhlwkqnvskpcu-Yzfk 2.8-0.55 % gel Use 1 Applicator by [...] exam reveals no gross blood or masses Car And Yard Supervisor present: Yes, Padmini Garcia Anoscopy: The patient [...] Dougherty MD Colorectal Surgery documented in this encounterParkwood Hospital04-15-2024 History of Present illness Narrative* Toribio Michaud MD - 10/27/2023 2:52 PM EDT Radiation Oncology - Follow Up Note PATIENT NAME: Kirt Reyna PATIENT DIAGNOSIS/PATIENT IDENTIFICATION: Ms. Reyna is a 53-year-old woman with [id number] squamous cell carcinoma of the anal canal. [...] VITAMIN ORAL) ondansetron (ZOFRAN) 8 mg tablet Ivfclvrao-Mpfexzlfvlugnd-Tvxx 2.8-0.55 % gel multivitamin tablet acetaminophen/diphenhydramine (TYLENOL [...] Ms. Reyna is a 53-year-old woman with [id number] squamous cell carcinoma of the anal canal. She completed a course of definitive concurrent chemoradiation therapy on 07/25/2022 (5600 cGy delivered in 28 fractions with partial course of Xeloda) Signed by: Toribio Michaud MD I spent a total of 20 minutes on the date of the service which included preparing to see the patient, jhsu-qo-bfqv patient care, and counseling and educating the patient/family/caregiver. This document has been created with the use of voice recognition technology. It may contain inaccuracies, misspellings, inaccurate syntax or inappropriate word context that are a result of the inadequacies/shortcomings of said technology/software. documented in this encounterParkwood Hospital04-15-2024 Instructions* Patient Instructions* Adri Gilbert - 10/27/2023 2:40 PM EDT RTC in 6 months - coordinate same day with Dr. Jaswant Link on return - CBC, CMP documented in this encounterParkwood Hospital04-15-2024 Nurse Note* Radha Gooden MA - 10/27/2023 2:25 PM EDT Patient does have chronic back pain, she is starting physical therapy. Radha Lunsford MA documented in this encounterParkwood Hospital04-15-2024 History of Present illness Narrative* Paco Bonds MD - 10/27/2023 2:15 PM EDT Images from the original note were not included. NAME: Kirt Reyna CLINIC NO.: [id number] DATE OF SERVICE: October 27, 2023 (Sangeetha) Some elements in this clinic note that are critical to medical decision making have been carefully reviewed and included from a prior clinic note dated: April 28, 2023 (Sangeetha) Referring Provider: Dr. Phil Dougherty Additional Clinicians involved in Kirt Felipe Reyna's care: Dr. Sondra Liu, Dr. Vitaly Vaughn, Dr. Toribio Michaud DIAGNOSIS: Anal Cancer ASSESSMENT: 53 year old woman with POTS recently diagnosed (04/2022) with an anal lesion consistentwith poorly differentiated squamous cell carcinoma with staining [...] 0.8 cm lesion. At the 10 o'clock positionis 2nd oval hypodense lesion measuring 2.7 x 2.7 x 2.8 mm. These correspond to the mammographic abno rmalities and complex cysts are favored. Three spot [...] right humerus - likely benign, 0.4 cm non- calcified pulmonary nodules, otherwise negative for metastatic disease. [...] US next week - will follow with senior underwriter for exam. Labs stable. Updated Visit, October [...] lidocaine. She denies fevers, chills and signs/symptoms ofinfection. She has the sweats which she states is from starting menopause. Overall, she is doing fairly well today. Updated Visit, July 01, 2022: Cherie returns for follow up. Starting having POTS symptoms on . Was worse over the weekend.Had dizziness, heart racing, BP dropping. She did [...] mouth sores. Her tongue has been bothering her.She had intermittent diarrhea and also constipation. She [...] Once exam is complete flush line and de-accessaccording to line specific nursing protocol in the CT contrast administration guidelines link. iv contrast (will be provided with radiology test) CT ABD W -Inject, intravenously, once for 1 dose.No IV access, insert saline lock prior to the beginning of sedation, infusion, injection of imagingexam. Discontinue saline lock post exam. If Pt. [...] daily. (Patient not taking: Reported on 10/27/2023) Cktasobak-Bhfcsffatgnxji-Lzex 2.8-0.55 % gel Use 1 Applicator by [...] which included preparing to see the patient, zmav-eu-uiem patient care, completing clinical documentation, obtaining and/or reviewing separately obtained history, performing a medically appropriate examination, counseling and educating the pat ient/family/caregiver, ordering medications, tests, or procedures, independently interpreting results (not separately reported), communicating results to the patient/family/caregiver, and care coordination (not separately reported). Paco Bonds MD, CPE Hematology and Oncology Services Provided at: [place], [place] Scribe Attestation: This note was scribed by Adri Gilbert on October 27, 2023 under the direction and supervision ofDr. Paco Bonds. I attest that all of the information documented is correct to the best of my knowledge. Provider Attestation: I, Paco Bonds MD, attest that all information documented by the above scribe is correct, and was supervised by me and under my direction. CC: Dr. Phil Liu documented in this encounterPark[facility]03-20-2024 History of Present illness Narrative* Derik Solomon, RT(R) - 10/01/2023 10:15 AM EDT Radiology Service Progress Note PATIENT NAME: Kirt Reyna DATE OF SERVICE: October 01, 2023 TIME: 10:42 AM PATIENT IDENTITY VERIFICATION COMPLETED USING TWO (2) IDENTIFIERS: Name and Date of confirmedby patient verbally. FALL SCREENING: Has the patient had 2 falls in the last year or 1 fall with injury or currently using an Ambulatory Assistive Device (Walker, Cane, Wheelchair, Crutches, etc.)? No PATIENT GENDER DATA: Female. status: : No status: NO. PATIENT RELEVANT IMPLANT DATA REVIEWED: Not Applicable PATIENT PRESENTS WITH AN IMPLANTABLE OR ATTACHED EMERGENCY ROOM NURSE: No RADIOLOGY DEPARTMENT: CT; Exam(s) Completed: Chest PERIPHERAL IV DATA: Not applicable SIGNED BY: RT Kimberly(R) October 01, 2023 10:42 AM documented in this encounterParkwood Hospital03-18-2024 History of Present illness Narrative* Jose R Bernard RRT - 09/29/2023 12:00 PM EDT Radiology Service Progress Note DATE OF SERVICE: [...] PATIENT PRESENTS WITH AN IMPLANTABLE OR ATTACHED EMERGENCY ROOM NURSE: No ALLERGIES: Reviewed and unchanged CONTRAST ALLERGY: [...] 2023 TIME: 1:33 PM documented in this encounterParkwood Hospital03-07-2024 Miscellaneous Notes* Telephone Encounter - Eliza Ramires RN - 09/18/2023 12:10 PM EST Discussed with patient and she is in agreement with plan. Eliza Ramires RN * Telephone Encounter - Toribio Michaud MD - 09/17/2023 9:34 AM EST NCCN guidelines recommend either 1. CT chest abdomen pelvis with IV contrast OR 2 CT chest wo contrast & MRI Abdomen/Pelvis with contrast annually for surveillance ... I was going with the latteroption. Thanks! Toribio * Telephone Encounter - Eliza Ramires, RN - 09/15/2023 7:[address] Michaud- it looks like the MRI Abdomen has not been ordered in the past. Is this to follow up on the renal mass on CT? Please advise so we know what to explain to patient. Thank you! Eliza Ramires, RN * Telephone Encounter - Shital Laureano - 09/15/2023 7:36 AM EST Called patient to schedule her scans, she stated this is not how they are usually ordered? Not surewhat she means by that not sure if you guys could call her and ask.. I know she called Friday but Shari was over there, thanks! * Telephone Encounter - Toribio Michaud MD - 09/12/2023 12:31 PM EST Orders placed ... Thanks! Toribio * Telephone Encounter - Shital Laureano - 09/12/2023 11:13 AM EST Hi, can you please place a new MRI order for patient, thank you so much. documented in this encounterParkwood Hospital11-14-2023 Miscellaneous Notes* Telephone Encounter - Andie Coyle - 05/27/2023 3:33 PM EST LVM for patient regarding the need to reschedule Colorectal appt with Dr. Dougherty on 05/29/2023. Provider not longer comes to [facility]. Mychart message sent. documented in this encounterParkwood Hospital10-16-2023 Instructions* Patient Instructions* Paco Bonds MD - 04/28/2023 2:22 PM EDT RTC in 6 months MRI Pelvis / Rectum and CT chest scans due in July per Dr. Michaud. Labs on return - cbc, cmp documented in this encounterParkwood Hospital10-16-2023 History of Present illness Narrative* Paco Bonds MD - 04/28/2023 2:12 PM EDT Images from the original note were not included. NAME: Kirt Reyna [facility] NO.: [id number] DATE [facility]ICE: [facility] Some elements in this clinic note that [...] recently diagnosed (04/2022) with an anal lesion consistentwith poorly differentiated squamous cell carcinoma with staining [...] US next week - will follow with senior underwriter for exam. Labs stable. Updated Visit, October [...] lidocaine. She denies fevers, chills and signs/symptoms ofinfection. She has the sweats which she states is from starting menopause. Overall, she is doing fairly well today. Updated Visit, July 01, 2022: Cherie returns for follow up. Starting having POTS symptoms on . Was worse over the weekend.Had dizziness, heart racing, BP dropping. She did [...] mouth sores. Her tongue has been bothering her.She had intermittent diarrhea and also constipation. She [...] Resp 16 Ht 5' 7.008 (1.70m) Wt 176lb (79.8kg) SpO2 99% BMI 27.56 kg/(m^2). Body [...] 8 HOURS NEEDED FOR NAUSEA AND VOMITING Bhqfzbwoy-Ymjhydezmpqscd-Dswt 2.8-0.55 % gel Use 1 Applicator by [...] which included preparing to see the patient, eaoz-ih-nuon patient care, completing clinical documentation, performing a medically appropriate examination, counseling and educating the patient/family/caregiver, ordering medications, tests, or p rocedures, and independently interpreting results (not separately reported). Paco Bonds MD, CPE Hematology and Oncology Services Provided at: [place], [place] CC: Dr. Phil Liu documented in this encounterParkwood Hospital10-16-2023 Nurse Note* Radha Gooden MA - 04/28/2023 1:59 PM EDT Patient had a Mammogram but do to dense tissue she has to have an US and more in depth mammogram done. Radha Lunsford MA documented in this encounterParkwood Hospital08-17-2023 Miscellaneous Notes* Telephone Encounter - Eliza Ramires RN - 02/27/2023 2:[address] Michaud request, pt was notified of report showing osteopenia in L Hip. Report faxed to PCP, DR Liu. Pt will follow up with him for any reccomendations. Eliza Ramires RN * Telephone Encounter - Eliza Ramires RN - 02/27/2023 11:39 AM EDT Pt called in requesting results of dexa scan. Dr Michaud- please advise. Results scanned in under xray. Unsure how to interpret for patient. Eliza Ramires RN documented in this encounterParkwood Hospital08-02-2023 Miscellaneous Notes* Telephone Encounter - Shital Laureano - 02/12/2023 9:25 AM EDT Patient is scheduled [place] Friday[place] 17 she is aware of appts * Telephone Encounter - Shital Laureano - 02/12/2023 9:10 AM EDT Called [facility] to schedule appt left message * Telephone Encounter - Eliza Ramires RN - 02/12/2023 9:01 AM EDT Pt was notified. PSS- please contact pt and arrange Dexa at [facility] per pt request. Eliza Ramires RN * Telephone Encounter - Toribio Michaud MD - 02/12/2023 5:34 AM EDT Will go ahead and order the DXA scan and add a Vitamin D level to her next blood draw. Thanks! Toribio * Telephone Encounter - Eliza Ramires RN - 02/10/2023 1:27 PM EDT Pt called in requesting dexa scan ordered [...] any vitamin deficiencies. She specifically wants to geta vitamin D Level checked. Dr Michaud- please advise. Would you like to order these tests or would you prefer for Dr Bonds to evaluate these questions? Eliza Ramires RN documented in this encounterParkwood Hospital07-31-2023 Instructions* Patient Instructions* Eliza Ramires RN - 02/10/2023 1:32 PM EDT BONE MINERAL DENSITY PATIENT INSTRUCTIONS Bone mineral density testing measures the amount of calcium in certain parts of your bones. This information determines how strong your bones are. The test is used to detect osteoporosis, a disease in which the bone's mineral content and density are low, increasing a person's risk of fractures. Thelumbar spine (lower back) and the hip are [...] your usual activities immediately. documented in this encounterParkwood Hospital07-06-2023 History of Present illness Narrative* Phil Dougherty MD - 01/16/2023 3:20 PM EDT COLORECTAL SURGERY January 16, 2023 Kirt Reyna [...] taking: Reported on 10/28/2022) 90 tablet 1 Eqcgshuze-Wqxbnljidicchn-Vzlt 2.8-0.55 % gel Use 1 Applicator by [...] exam reveals no gross blood or masses Car And Yard Supervisor present: Yes, Jenn Anoscopy: The patient was [...] as a anoscopy. Dr. Michaud has ordered hernext set of imaging tests and she will [...] Dougherty MD Colorectal Surgery documented in this encounterParkwood Hospital04-17-2023 History of Present illness Narrative* Toribio Michaud MD - 10/28/2022 11:19 PM EDT Radiation Oncology - Follow Up Note PATIENT NAME: Kirt Reyna PATIENT DIAGNOSIS/PATIENT IDENTIFICATION: Ms. Reyna is a 52-year-old woman with [id number] squamous cell carcinoma of the anal canal. [...] now recovered. She is planning for a [employer] exam in the next few weeks. She [...] mg tablet ondansetron (ZOFRAN) 8 mg tablet Ysdgwejcj-Djyegfxapshxso-Hwmf 2.8-0.55 % gel acetaminophen/diphenhydramine (TYLENOL PM EXTRA [...] Ms. Reyna is a 52-year-old woman with [id number] squamous cell carcinoma of the anal canal. [...] which included preparing to see the patient, zztf-dn-wffg patient care, and counseling and educating the patient/family/caregiver. This document has been created with the use of voice recognition technology. It may contain inaccuracies, misspellings, inaccurate syntax or inappropriate word context that are a result of the inadequacies/shortcomings of said technology/software. documented in this encounterParkwood Hospital04-17-2023 Nurse Note* Radha Lunsford MA - 10/28/2022 3:07 PM EDT Clinical questionnaires incomplete due to QNR intake not loading. Radha Gomez MA documented in this encounterParkwood Hospital04-17-2023 Instructions* Patient Instructions* Paco Bonds MD - 10/28/2022 2:08 PM EDT RTC in 6 months Defer scans (MRI) to Dr. Michaud / Dennis. Labs on return - cbc, cmp documented in this encounterParkwood Hospital04-17-2023 History of Present illness Narrative* Paco Bonds MD - 10/28/2022 1:30 PM EDT Images from the original note were not included. NAME: Kirt Reyna [facility] NO.: [id number] DATE OF SERVICE: October 28, 2022 ([facility]) Some elements in this clinic [...] recently diagnosed (04/2022) with an anal lesion consistentwith poorly differentiated squamous cell carcinoma with staining [...] lidocaine. She denies fevers, chills and signs/symptoms ofinfection. She has the sweats which she states is from starting menopause. Overall, she is doing fairly well today. Updated Visit, July 01, 2022: Cherie returns for follow up. Starting having POTS symptoms on . Was worse over the weekend.Had dizziness, heart racing, BP dropping. She did [...] mouth sores. Her tongue has been bothering her.She had intermittent diarrhea and also constipation. She [...] VOMITING (Patient not taking: Reported on 10/28/2022) Ubnqzrujn-Lkveclkcppfajl-Ppiy 2.8-0.55 % gel Use 1 Applicator by [...] with food, twice daily only on days ofradiation (M-F) each week prochlorperazine (COMPAZINE) 10 mg [...] which included preparing to see the patient, takt-he-kdou patient care, completing clinical documentation, performing a medically appropriate examination, counseling and educating the patient/family/caregiver, ordering medications, tests, or p rocedures, and independently interpreting results (not separately reported). Paco Bonds MD, CPE Hematology and Oncology Services Provided at: [place], [place] CC: Dr. Phil Liu documented in this encounterCleveland [id number] NoteHNO ID: [id number] Author: Eleonora Puri Service: Radiology Author Type: [...] BY: Eleonora Puri October 11, 2022 4:15 [facility]03-31-2023 History of Present illness Narrative* Eleonora Puri - 10/11/2022 3:00 PM EDT Radiology Service Progress Note PATIENT NAME: Kirt Reyna DATE OF SERVICE: October 11, 2022 TIME: 4:15 PM PATIENT IDENTITY VERIFICATION COMPLETED USING TWO (2) IDENTIFIERS: Name and Date of confirmedby patient verbally and Name and Date of [...] 11, 2022 4:15 PM documented in this encounterParkwood Hospital03-31-2023 Nurse Note* Melissa Vazquez RN - 10/11/2022 3:00 PM EDT Radiology Service Progress Note DATE OF SERVICE: [...] 2022 TIME: 2:45 PM documented in this [facility]02-22-2023 History of Present illness Narrative* Toribio Michaud MD - 09/04/2022 11:32 PM EST Radiation Oncology - Follow Up Note PATIENT NAME: Kirt Reyna PATIENT Signed by: Toribio Michaud MD This document has been created with the use of voice recognition technology. It may contain inaccuracies, misspellings, inaccurate syntax or inappropriate word context that are a result of the inadequacies/shortcomings of said technology/software. documented in this [facility]02-22-2023 Instructions* Patient Instructions* Paco Bonds MD - 09/04/2022 10:52 AM EST RTC in 3 months Defer scans (MRI) to Dr. Michaud. Labs on return - cbc, cmp documented in this encounterParkwood Hospital02-22-2023 History of Present illness Narrative* Paco Bonds MD - 09/04/2022 10:15 AM EST Images from the original note were not included. NAME: Kirt Reyna CLINIC NO.: [id number] DATE OF SERVICE: [facility] Some elements in this clinic note that [...] recently diagnosed (04/2022) with an anal lesion consistentwith poorly differentiated squamous cell carcinoma with staining [...] lidocaine. She denies fevers, chills and signs/symptoms ofinfection. She has the sweats which she states is from starting menopause. Overall, she is doing fairly well today. Updated Visit, July 01, 2022: Cherie returns for follow up. Starting having POTS symptoms on . Was worse over the weekend.Had dizziness, heart racing, BP dropping. She did [...] mouth sores. Her tongue has been bothering her.She had intermittent diarrhea and also constipation. She [...] Resp 16 Ht 5' 7.008 (1.70m) Wt 173lb 3.2 oz (78.6kg) SpO2 98% BMI 27.12 [...] DAY diphenhydrAMINE (BENADRYL) 12.5 mg/5 mL liquid Qjkvqatcc-Ihxjzwoddabhja-Nkca 2.8-0.55 % gel Use 1 Applicator by [...] with food, twice daily only on days ofradiation (M-) each week (Patient not taking: No sig [...] which included preparing to see the patient, lenc-mc-accl patient care, completing clinical documentation, performing a medically appropriate examination, counseling and educating the patient/family/caregiver, ordering medications, tests, or p rocedures, and independently interpreting results (not separately reported). Paco Bonds MD, CPE Hematology and Oncology Services Provided at: [place], [place] CC: Dr. Phil Liu documented in this encounterParkwood Hospital02-15-2023 History of Present illness Narrative* Shannen Olmstead RN - 08/28/2022 9:45 AM EST Radiology Service Progress Note DATE OF SERVICE: [...] creatinine assay has traceable calibration to isotope dilution- mass spectrometry. Refer to KDIGO guidelines for clinical interpretation. In patients with unstable renal function, e.g. those with acute kidney injury, the eGFRmay not accurately reflect actual GFR. P.O.C.T. RESULTS: N/A August 28, 2022 TREATMENT: N/A IV SITE: Ambulatory: A peripheral IV was started in the Right antecubital site with a Angio cath: 20 gauge. IV SITE APPEARANCE: Clean,Dry and Intact SIGNATURE: Shannen Olmstead RN PATIENT NAME: Kirt Reyna DATE: August 28, 2022 TIME: 10:05 AM * Jah Colbert RT(R) - 08/28/2022 9:45 AM EST Radiology Service Progress Note PATIENT NAME: Kirt Reyna DATE OF SERVICE: August 28, 2022 TIME: 10:06 AM PATIENT IDENTITY VERIFICATION COMPLETED USING TWO (2) IDENTIFIERS: Name and Date of confirmedby patient verbally. FALL SCREENING: Has the patient [...] 28, 2022 10:06 AM documented in this encounterParkwood Hospital02-03-2023 Miscellaneous Notes* Telephone Encounter - Jah Whitehead RN - 08/16/2022 1:17 PM EST Voicemail message received from pt requesting a letter clearing her to return to work. Pt's chart reviewed. It appears a letter was written per Dr Michaud on 07/24/22. Call placed to pt. Ptstates that her employer found the letter since her original message. No additional letter needed at this time. Jah Whitehead RN documented in this [facility]01-19-2023 History of Present illness Narrative* Toribio Michaud MD - 08/01/2022 11:50 PM EST Radiation Oncology - Follow Up Note PATIENT NAME: Kirt Reyna PATIENT Signed by: Toribio Michaud MD This document has been created with the use of voice recognition technology. It may contain inaccuracies, misspellings, inaccurate syntax or inappropriate word context that are a result of the inadequacies/shortcomings of said technology/software. documented in this [facility]01-19-2023 Nurse Note* Eliza Ramires RN - 08/01/2022 11:39 AM EST Kirt Reyna presents in office today for: Lab Draw during Office Visit . Ordering Provider: Toribio Michaud M.D. Test (s) ordered: CBC CMP Method for obtaining blood: Phlebotomy was performed, accessing right antecubital vein. Needle removed intact. Dressing secured. Patient denies discomfort, dizziness, light-headedness or weakness and left the department without assist. Eliza Ramires RN documented in this [facility]01-13-2023 Miscellaneous Notes* Allied Health - Rossi Bradley, Art Therapist - 07/26/2022 2:46 PM EST ART THERAPY NOTE SERVICE DATE: 07/26/2022 SERVICE [...] 2:46 PM PAGER/CONTACT #: documented in this encounterParkwood Hospital01-12-2023 History of Present illness Narrative* Toribio Michaud MD - 07/25/2022 12:00 AM EST [facility] Radiation Oncology Department RADIATION ONCOLOGY - COMPLETION NOTE PATIENT: KIRT REYNA: 1970 DATES OF TREATMENT: 06-13-2022 to 07-25-2022 DIAGNOSIS: Ms. 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 [...] course of radiation therapy with treatment related fatigue,dermatitis/moist desquamation, proctitis/greyson-anal discomfort, nausea as expected. No [...] Dougherty MD ([facility]) Sondra Liu MD [address] [facility] [place] [address] [address] documented in this encounterParkwood Hospital01-10-2023 History of Present illness Narrative* Toribio Michaud MD - 07/23/2022 11:54 PM EST Radiation Oncology - On Treatment Review (OTR) Note PATIENT NAME: Kirt Reyna PATIENT Toribio Michaud MD documented in this encounterParkwood Hospital01-10-2023 Nurse Note* Heidi Horta LPN - 07/23/2022 12:11 PM EST Status: Patient states there is no possibility she is at this time. documented in this encounterParkwood Hospital01-09-2023 Miscellaneous Notes* Telephone Encounter - Clarissa Maguire - 07/22/2022 12:[address] Arellano office spoke with Richard. She states they have received this referral and they called patient on 07/19 and left message for patient to call their office back to schedule. Clarissa Weiss Pss * Telephone Encounter - Basia Ramires [facility] - 07/17/2022 12:34 PM EST Records faxed to Dr. Arellano. * Telephone Encounter - Clarissa Roth Pss - 07/17/2022 12:22 PM EST Margarita: Information ready for you. Clarissa Weiss Pss * Telephone Encounter - Jenna Solorio - 07/17/2022 11:14 AM EST Cardiology Referral. Dx: POTS (postural orthostatic tachycardia syndrome) [G90.A (ICD-10-CM)] Comments: Please refer to Dr. Raghu Arellano in [place] Margarita/Alvin: Can you please refer patient and follow up? Thanks! Jenna Solorio documented in this encounterParkwood Hospital01-05-2023 History of Present illness Narrative* Toribio Michaud MD - 07/18/2022 6:17 PM EST Radiation Oncology - On Treatment Review (OTR) Note PATIENT NAME: Kirt Reyna PATIENT DIAGNOSIS: Ms. Reyna this 52-year-old woman with [id number] squamous cell carcinoma of the anal canal. [...] planned. Toribio Michaud MD documented in this encounterParkwood Hospital01-05-2023 Nurse Note* Heidi Horta LPN - 07/18/2022 12:29 PM EST Status: Patient states there is no possibility she is at this time. documented in this encounterParkwood Hospital01-04-2023 Instructions* Patient Instructions* Paco Bonds MD - 07/17/2022 10:57 AM EST [address]aging CT's in 6 weeks Labs same day. RTC after scans to review. documented in this encounterParkwood Hospital01-04-2023 History of Present illness Narrative* Paco Bonds MD - 07/17/2022 9:45 AM EST Images from the original note were not included. NAME: Kirt Reyna CLINIC NO.: [id number] DATE OF SERVICE: July 17, 2022 ([place]) [...] recently diagnosed (04/2022) with an anal lesion consistentwith poorly differentiated squamous cell carcinoma with staining [...] lidocaine. She denies fevers, chills and signs/symptoms ofinfection. She has the sweats which she states is from starting menopause. Overall, she is doing fairly well today. Updated Visit, July 01, 2022: Cherie returns for follow up. Starting having POTS symptoms on . Was worse over the weekend.Had dizziness, heart racing, BP dropping. She did [...] mouth sores. Her tongue has been bothering her.She had intermittent diarrhea and also constipation. She [...] Resp 16 Ht 5' 7.008 (1.70m) Wt 169lb 12.8 oz (77.0kg) SpO2 100% BMI 26.59 [...] MEDICATIONS: diphenhydrAMINE (BENADRYL) 12.5 mg/5 mL liquid Cmaqrmtcj-Fktemediekulmf-Qvhx 2.8-0.55 % gel Use 1 Applicator by [...] radiology test) CT Chest ABD/PEL-Inject, intravenously, once for1 dose.No IV access, insert saline lock prior [...] both Oral and Rectal, Enteric Tube, Stoma orIndwelling Catheter, Enteric Contrast as designated per enteric contrast guidelines capecitabine (XELODA) 500 mg tablet Take 2 tablet by mouth , with food, twice daily only on days ofradiation (M-) each week (Patient not taking: Reported on [...] which included preparing to see the patient, rfec-ai-oskx patient care, completing clinical documentation, performing a medically appropriate examination, counseling and educating the patient/family/caregiver, ordering medications, tests, or p rocedures, and independently interpreting results (not separately reported). Paco Bonds MD, CPE Hematology and Oncology Services Provided at: [place], [place] CC: Dr. Phil Liu documented in this encounterParkwood Hospital12-30-2022 Miscellaneous Notes* Allied Health - Bear Chun Therapist - 07/12/2022 11:59 AM EST ART THERAPY NOTE SERVICE DATE: 07/12/2022 SERVICE [...] 11:59 AM PAGER/CONTACT #: documented in this encounterParkwood Hospital12-29-2022 History of Present illness Narrative* Toribio Michaud MD - 07/11/2022 11:10 PM EST Radiation Oncology - On Treatment Review (OTR) Note PATIENT NAME: Kirt Reyna PATIENT DIAGNOSIS: Ms. Reyna this 52-year-old woman with [id number] squamous cell carcinoma of the anal canal. [...] planned. Toribio Michaud MD documented in this encounterParkwood Hospital12-28-2022 History of Present illness Narrative* Carmina Forbes, RD - 07/10/2022 9:11 AM EST Oncology Nutrition Therapy Reassessment RECOMMENDED MALNUTRITION DIAGNOSIS: NO MALNUTRITION IDENTIFIED Some elements copied from my note on 06/28/2022, have been updated and all reflect current decisionmaking from today, 07/10/2022 Nutrition Diagnosis: Increased protein [...] Pt is currently being treated with RT, Xeloda(currently held). Pt denies any chewing/swallowing issues, denies current N/V/D/C. Pt does report occasional alterations between constipation and loose stool, but states she has been able to manage it with diet and OTC remedies. Appetite and intakes remain good. Patient continues to consume small frequent meals and snacks. Sheis taking ONS once per day and will increase as needed. Pt had question regarding healthier proteinsources these were reviewed. Thank you for allowing [...] 1.0-1.3 g/kg Dosing weight Estimated fluid needs: ~8321-4696 milliliters based on 1 mL per kcal (unless otherwise noted) Nutrition Focused Physical Exam: Unable to perform exam due to potential for patient discomfort (physical/emotional), will re-attempt during reassessment. Potential Signs of Inflammation: chronic condition Allergies: Penicillin G and Sulfa (Sulfonamide Antibiotics) Medications: Current Outpatient Medications Medication Sig Dispense Refill diphenhydrAMINE (BENADRYL) 12.5 mg/5 mL liquid Rjszwsnht-Dvvoeiwmwwapwl-Lslo 2.8-0.55 % gel Use 1 Applicator by [...] with food, twice daily only on days ofradiation (M-F) each week 20 tablet 4 multivitamin [...] 30 minutes Signed by: Carmina Forbes MS, RDJosie, LD documented in this encounterParkwood Hospital12-28-2022 History of Present illness Narrative* Gerardo Mckinnon APRN.MANAGER TALENT ACQUISITION - 07/10/2022 9:00 AM EST Images from the original note were not included. NAME: Michelle [facility] NO.: [id number] DATE OF SERVICE: July 10, 2022 (Dean) (Elements copied from Daphne Dimas PA-C note dated July 01, 2022, have been reviewed and updated where appropriate, and all reflect current assessment and medical decision making duringtoday's encounter, July 10, 2022) (Daphne Dimas PA-C) Referring Provider: Dr. Phil Dougherty Additional Clinicians involved in Kirt Reyna's care: Dr. Sondra Liu, Dr. Vitaly Vaughn, Dr. Toribio Michaud DIAGNOSIS: Anal Cancer ASSESSMENT: 52 year old woman with POTS recently diagnosed (04/2022) with an anal lesion consistentwith poorly differentiated squamous cell carcinoma with staining [...] lidocaine. She denies fevers, chills and signs/symptoms ofinfection. She has the sweats which she states is from starting menopause. Overall, she is doing fairly well today. Updated Visit, July 01, 2022: Cherie returns for follow up. Starting having POTS symptoms on . Was worse over the weekend.Had dizziness, heart racing, BP dropping. She did [...] mouth sores. Her tongue has been bothering her.She had intermittent diarrhea and also constipation. She [...] Resp 16 Ht 5' 7.008 (1.70m) Wt 169lb 12.8 oz (77.0kg) SpO2 97% BMI 26.59 [...] MEDICATIONS: diphenhydrAMINE (BENADRYL) 12.5 mg/5 mL liquid Fgefnjmeo-Ltlnghxdhffiwk-Utfk 2.8-0.55 % gel Use 1 Applicator by [...] with food, twice daily only on days ofradiation (M-) each week multivitamin tablet Take 1 tablet [...] APRN.CNP Hematology and Oncology Services Provided at: [place], [place] CC: Dr. Phil Liu I spent a total of 30 minutes on the date of the service which included preparing to see the patient, hbyk-bu-imyk patient care, completing clinical documentation, obtaining and/or reviewing separately obtained history, performing a medically appropriate examination, counseling and educating the pat ient/family/caregiver, ordering medications, tests, or procedures, independently interpreting results (not separately reported), and communicating results to the patient/family/caregiver. documented in this encounterParkwood Hospital12-21-2022 History of Present illness Narrative* Toribio Michaud MD - 07/03/2022 11:16 PM EST Radiation Oncology - On Treatment Review (OTR) Note PATIENT NAME: Kirt Reyna PATIENT DIAGNOSIS: Ms. Reyna this 52-year-old woman with [id number] squamous cell carcinoma of the anal canal. [...] barrier cream twice a day. Her stool ismostly formed with occasional diarrhea and occasional blood [...] MD Toribio Quintana MD documented in this encounterParkwood Hospital12-20-2022 Miscellaneous Notes* Telephone Encounter - Eliza Ramires RN - 07/02/2022 11:32 AM EST Pt was notified and would also like to know what out of pocket cost would be for what he recommended. Pharmacy was contacted via teams to ask. Eliza Ramires RN * Telephone Encounter - Frida Naik [facility] - 07/02/2022 9:19 AM EST Heidi/Jose R can you inform Kirt of Dr Michaud's reccomendations as the prescribed lidocaine is not covered by insurance: Would have her try preparation H with lidocaine for topical relief - thanks! Toribio * Telephone Encounter - Troibio Michaud MD - 07/01/2022 4:20 PM EST Would have her try preparation H with lidocaine for topical relief - thanks! Toribio * Telephone Encounter - Frida Naik [facility] - 07/01/2022 4:14 PM EST PA denied, no alternatives available on the marker, unless you would like to try emla cream. * Telephone Encounter - Yolanda Santos [facility] - 06/28/2022 11:48 AM EST Ambulatory Pharmacy Prior Authorization Note Provider Intervention Required?: No- Pharmacy completed on your behalf. Drug: Qyeabgcmp-Qjnfadzklitwel-Wzbo Gel Cover My Meds Humphrey: [id number] Determination: Denied PA Denied because: not covered at all Prior Authorization/Case #: [id number] Prior Authorization Expiration: Time to PA Submission in CMM: 15 min Time to PA Determination in CMM: 2 days Additional Information: phone fax For questions relating to this submission, please contact [facility] at [phone] documented in this encounterParkwood Hospital12-16-2022 Miscellaneous Notes* Telephone Encounter - Frida Naik RPh - 06/28/2022 9:44 AM EST Lidocaine is on a manufacture backorder nationwide. This pended script's product is available if you are agreeable to it. documented in this encounterParkwood Hospital12-14-2022 History of Present illness Narrative* Toribio Michaud MD - 06/26/2022 10:46 PM EST Radiation Oncology - On Treatment Review (OTR) Note PATIENT NAME: Kirt Reyna PATIENT DIAGNOSIS: Ms. Reyna this 52-year-old woman with [id number] squamous cell carcinoma of the anal canal. [...] planned. Toribio Michaud MD documented in this encounterParkwood Hospital12-14-2022 Nurse Note* Eliza Ramires RN - 06/26/2022 12:43 PM EST Status: No possibility of . Eliza Ramires RN documented in this encounterParkwood Hospital12-12-2022 History of Present illness Narrative* Gerardo Mckinnon APRN.MANAGER TALENT ACQUISITION - 06/24/2022 11:45 AM EST Images from the original note were not included. NAME: Kirt Reyna CLINIC NO.: [id number] DATE OF SERVICE: June 24, 2022 (Dean) Some elements in this clinic note that are critical to medical decision making have been carefully reviewed and included from a prior clinic note dated: June 17, 2022. (Dr. Bonds) Referring Provider: Dr. Phil Dougherty Additional Clinicians involved in Kirt A Michelle's care: Dr. Sondra Liu, Dr. Vitaly Vaughn, Dr. Toribio Michaud DIAGNOSIS: Anal Ca. ASSESSMENT: 52 year old woman with POTS recently diagnosed (04/2022) with an anal lesion consistentwith poorly differentiated squamous cell carcinoma with staining [...] mouth sores. Her tongue has been bothering her.She had intermittent diarrhea and also constipation. She [...] Her biggest concern is regarding POTS. Mother yMrna is with her POTS closely associated with [...] Resp 16 Ht 5' 7.008 (1.70m) Wt 166lb 12.8 oz (75.7kg) SpO2 99% BMI 26.12 [...] with food, twice daily only on days ofradiation (M-F) each week multivitamin tablet Take 1 [...] (parkinson [Other]) Father Diabetes Father Gerardo Mckinnon APRN.[facility] Hematology and Oncology Services Provided at: [place], [place] CC: Dr. Phil Liu I spent a total of 30 minutes on the date of the service which included preparing to see the patient, jigb-yp-etmt patient care, completing clinical documentation, obtaining and/or reviewing separately obtained history, performing a medically appropriate examination, counseling and educating the pat ient/family/caregiver, ordering medications, tests, or procedures, independently interpreting results (not separately reported), and communicating results to the patient/family/caregiver. documented in this encounterParkwood Hospital12-07-2022 History of Present illness Narrative* Toribio Michaud MD - 06/19/2022 11:23 PM EST Radiation Oncology - On Treatment Review (OTR) Note PATIENT NAME: Kirt Reyna PATIENT Toribio Michaud MD documented in this [facility]12-07-2022 Nurse Note* Heidi Horta LPN - 06/19/2022 1:22 PM EST Status: Patient states there is no possibility she is at this time. documented in this [facility]12-07-[facility] Miscellaneous Notes* Telephone Encounter - Jah Whitehead RN - 06/19/2022 9:19 AM EST ORAL ANTI-CANCER AGENTS FOLLOW-UP PHONE CALL/VISIT Patient [...] in frequency. Reports her stools are more roundand normal in appearance. C/o intermittent bowel cramping [...] also reports that she is using her peribottle and sitz baths as recommended. Denies any [...] comply. Jah Whitehead RN documented in this encounterParkwood Hospital12-06-2022 Miscellaneous Notes* Telephone Encounter - Frida Naik [facility] - 06/18/2022 10:50 AM EST Updated order base don new directions documented in this encounterParkwood Hospital12-05-2022 Miscellaneous Notes* Telephone Encounter - Shital Amaya RN - 06/17/2022 2:41 PM EST Discussed this with Dr Calles on Friday. Pt stated on the phone that she didn't feel that she'd be able to keep down or tolerate 3 pills as that seemed like too high of a dose, so she's going to take the 2 pills BID instead. Shital Amaya RN * Telephone Encounter - Paco Bonds MD - 06/14/2022 5:30 PM EST Ok thank for letting me know - any specific issue she couldn't tolerate? * Telephone Encounter - Shital Amaya RN - 06/14/2022 11:51 AM EST Pt calls stating she's only taking two Xeloda pills BID instead of the three that were ordered. Pt states she wasn't able to tolerate 3, so she doing [address] Calles to be aware. Shital Amaya RN documented in this encounterParkwood Hospital12-05-2022 Instructions* Patient Instructions* Paco Bonds MD - 06/17/2022 2:00 PM EST Continue Xeloda on days of radiation - decrease dose to 1000 mg BID M-F Will be taking Xeloda daily on days of radiation only. Plan hydration on M, W, of each week RTC with me on Friday06/24/2022 Labs every Friday - prior to starting Xeloda for each week. documented in this encounterParkwood Hospital12-05-2022 Nurse Note* Radha Lunsford MA - 06/17/2022 1:44 PM EST Patient is taking Xeloda 4 pills daily, she was taking 6 but that was not working for her so she changed it. Radha Lunsford MA documented in this encounterParkwood Hospital12-05-2022 History of Present illness Narrative* Paco Bonds MD - 06/17/2022 1:15 PM EST Images from the original note were not included. NAME: Kirt Reyna CLINIC NO.: [id number] DATE OF SERVICE: June 17, 2022 (Sangeetha) Some elements in this clinic note that are critical to medical decision making have been carefully reviewed and included from a prior clinic note dated: May 27, 2022 (Sangeetha) Referring Provider: Phil Dougherty Additional Clinicians involved in Kirt Felipe Reyna's care: Sondra Liu, Vitaly Vaughn, Toribio Michaud DIAGNOSIS: Anal Ca. ASSESSMENT: 52 year old woman with POTS recently diagnosed (04/2022) with an anal lesion consistentwith poorly differentiated squamous cell carcinoma with staining [...] Resp 18 Ht 5' 7.008 (1.70m) Wt 167lb (75.8kg) SpO2 99% BMI 26.15 kg/(m^2). Body [...] by mouth twice daily. Only on days ofradiation (M-F) each week (Patient taking differently: Take 825 mg/m2 by mouth twice daily. Only ondays of radiation (-) each week. Takes 4 daily.) fludrocortisone (FLORINEF) [...] which included preparing to see the patient, jtfq-oh-zmal patient care, completing clinical documentation, performing a medically appropriate examination, counseling and educating the patient/family/caregiver, ordering medications, tests, or p rocedures, and independently interpreting results (not separately reported). Paco Bonds MD, CPE Hematology and Oncology Services Provided at: [place], [place] CC: Phil Amaro Suellen Noe documented in this encounterParkwood Hospital12-01-2022 Miscellaneous Notes* Telephone Encounter - Eliza Ramires RN - 06/13/2022 7:46 AM EST Call placed to pt. She forgot to [...] of at this time. Eliza Ramires RN * Telephone Encounter - Eliza Ramires RN - 06/12/2022 10:07 AM EST Spoke to pt and she will go to [facility] for urine test. Order was faxed. She was also notifiedshe is ok to start her chemo tomorrow and does not need additional labs. I also made her aware thatwe are not planning to do DPD enzyme testing at this time. She is aware of new start time and will be here tomorrow at 10:15. Eliza Ramires RN * Telephone Encounter - Toribio Michaud MD - 06/12/2022 9:31 AM EST Signed - results should be available/negative prior to starting XRT. Thanks! NESHA * Telephone Encounter - Eliza Ramires RN - 06/12/2022 8:23 AM EST Please sign pended order for Urine Test. Eliza Ramires RN documented in this encounterParkwood Hospital11-21-2022 History of Present illness Narrative* Jah Whitehead RN - 06/03/2022 2:03 PM EST ORAL ANTI-CANCER AGENTS EDUCATION patient here today [...] minutes Jah Whitehead RN documented in this encounterParkwood Hospital11-21-2022 History of Present illness Narrative* Carmina Forbes RD - 06/03/2022 1:16 PM EST Oncology Nutrition Therapy Initial Assessment RECOMMENDED MALNUTRITION [...] admit to consumption of quite a bit ofprocessed foods in attempts to consume enough sodium. Briefly discussed with pt benefit of reducingprocessed foods and consuming more lean proteins and adding salt to food rather than consuming proce ssed meats. Reviewed interventions above and problem solved [...] 1.0-1.3 g/kg Dosing weight Estimated fluid needs: ~4741-1313 milliliters based on 1 mL per kcal [...] by mouth twice daily. Only on days ofradiation (M-F) each week 30 tablet 5 fludrocortisone [...] Forbes MS, RDN, LD documented in this encounterParkwood Hospital11-17-2022 History of Present illness Narrative* Carmina Forbes RD - 05/30/2022 7:31 AM EST Oncology Nutrition Therapy Initial Assessment This visit was performed as a telehealth visit due to the COVID-19 pandemic as an effort to protectpatients and minimize exposure. Consent from patient received [...] Forbes MS, RDN, LD documented in this encounterParkwood Hospital11-14-2022 Nurse Note* Heidi Horta LPN - 05/27/2022 12:12 PM EST Status: Patient states there is no possibility she is at this time. documented in this [facility]11-14-2022 Instructions* Patient Instructions* Paco Bonds MD - 05/27/2022 11:51 AM EST Start Xeloda on June 13, 2022 with start of radiation Will be taking Xeloda daily on days of radiation only. Plan hydration on M,T,F of each week (start Jun 14) RTC with me on Friday06/17/2022 Labs every Friday Needs educations Labs today please - for baseline documented in this [facility]11-14-[facility] History of Present illness Narrative* Toribio Michaud MD - 05/27/2022 11:08 AM EST Radiation Oncology - Follow Up Note PATIENT NAME: Kirt Reyna PATIENT DIAGNOSIS/PATIENT IDENTIFICATION: Ms. Reyna is a 52-year-old woman diagnosed with squamous cell carcinoma of the anal canal/distal rectum status post sigmoidoscopy and biopsy on 04/24/[address] Vaughn. She then met with Dr. Dougherty who has ordered staging work-up with MRI of the rectum/pelvis and CT ab domen/chest which is pending. She met my colleague [...] showed no definite evidence of distant disease. ([id number]) We again briefly reviewed the rationale, logistics, [...] which included preparing to see the patient, uxrd-ks-wgoo patient care, and counseling and educating the patient/family/caregiver. This document has been created with the use of voice recognition technology. It may contain inaccuracies, misspellings, inaccurate syntax or inappropriate word context that are a result of the inadequacies/shortcomings of said technology/software. documented in this encounterParkwood Hospital11-14-2022 History of Present illness Narrative* Paco Bonds MD - 05/27/2022 10:45 AM EST Images from the original note were not included. NAME: Kirt Reyna [facility] NO.: [id number] DATE OF SERVICE: May 27, 2022 (Sangeetha) Some elements in this clinic [...] recently diagnosed (04/2022) with an anal lesion consistentwith poorly differentiated squamous cell carcinoma with staining [...] Resp 16 Ht 5' 7.008 (1.70m) Wt 170lb 9.6 oz (77.4kg) SpO2 98% BMI 26.71 [...] by mouth twice daily. Only on days ofradiation (M-F) each week fludrocortisone (FLORINEF) 0.1 mg [...] which included preparing to see the patient, vazd-cs-nyws patient care, completing clinical documentation, obtaining and/or reviewing separately obtained history, performing a medically appropriate examination, counseling and educating the pat ient/family/caregiver, ordering medications, tests, or procedures, communicating with other HCPs (not separately reported), and independently interpreting results (not separately reported). Paco Bonds MD, CPE Hematology and Oncology Services Provided at: [place], [place] CC: Phil Liu documented in this encounterParkwood Hospital11-10-2022 Miscellaneous Notes* Telephone Encounter - Gerardo Mckinnon APRN.CNP - 05/23/2022 4:32 PM EST The following approved medication requests have been transmitted electronically. Requested Prescriptions Signed Prescriptions Disp Refills ondansetron (ZOFRAN) 8 mg tablet 90 tablet 1 Sig: Take 1 tablet by mouth every 8 hours as needed for nausea/vomiting. Authorizing Provider: GERARDO MCKINNON prochlorperazine (COMPAZINE) 10 mg tablet 100 tablet 1 Sig: Take 1 tablet by mouth every 6 hours as needed. Authorizing Provider: GERARDO MCKINNON APRN.MANAGER TALENT ACQUISITION * Telephone Encounter - Jah Whitehead RN - 05/23/2022 4:12 PM EST Pt to start Xeloda w/ XRT. Scripts for antiemetics pended. Jah Whitehead RN documented in this encounterParkwood Hospital11-08-2022 History of Present illness Narrative* Laurie Escobedo RN - 05/21/2022 8:15 AM EST Radiology Service Progress Note DATE OF SERVICE: [...] creatinine assay has traceable calibration to isotope dilution- mass spectrometry. Refer to KDIGO guidelines for clinical interpretation. In patients with unstable renal function, e.g. those with acute kidney injury, the eGFRmay not accurately reflect actual GFR. P.O.C.T. RESULTS: N/A May 21, 2022 TREATMENT: No Hydration needed. IV SITE: Ambulatory: A peripheral IV was started in the Right antecubital site with a Angio cath: 20 gauge. IV SITE APPEARANCE: Clean,Dry and Intact SIGNATURE: Laurie Escobedo RN PATIENT NAME: Kirt Reyna DATE: May 21, 2022 TIME: 8:37 AM * Jah Colbert RT(R) - 05/21/2022 8:15 AM EST Radiology Service Progress Note PATIENT NAME: Kirt Reyna DATE OF SERVICE: May 21, 2022 TIME: 9:53 AM PATIENT IDENTITY VERIFICATION COMPLETED USING TWO (2) IDENTIFIERS: Name and Date of confirmedby patient verbally. FALL SCREENING: Has the patient [...] 21, 2022 9:53 AM documented in this encounterParkwood Hospital11-04-2022 Miscellaneous Notes* Telephone Encounter - Paco Bonds MD - 05/17/2022 10:20 AM EDT Whatever's easy - just so she doesn't take it weekly until labs are cleared. How about 1 week for the 1st week, then 4 and then the remaining days (may not be a full 6 weeks ofRT - - usually just 28 days.) * Telephone Encounter - Frida Naik RPh - 05/17/2022 8:52 AM EDT The capecitabine order is covered at [facility] with no co pay, did you only want her to get the capecitabine week to week? She could get a months worth then another 2 weeks after that? Please advise Chung Naik [facility] Sheeba GARVIN documented in this encounterParkwood Hospital10-24-2022 History of Present illness Narrative* Toribio Michaud MD - 05/06/2022 11:41 PM EDT Images from the original note were not included. Radiation Oncology - New Patient/Consult Note PATIENT NAME: Kirt Reyna PATIENT Signed: Toribio Michaud MD I spent a total of 60 minutes on the date of the service which included preparing to see the patient, abfy-pf-ajdx patient care, and counseling and educating the patient/family/caregiver. This document has been created with the use of voice recognition technology. It may contain inaccuracies, misspellings, inaccurate syntax or inappropriate word context that are a result of the inadequacies/shortcomings of said technology/software. documented in this encounterParkwood Hospital10-24-2022 History of Present illness Narrative* Heidi Horta LPN - 05/06/2022 1:03 PM EDT This encounter was opened in error. documented in this encounterParkwood Hospital10-24-2022 Instructions* Patient Instructions* Paco Bonds MD - 05/06/2022 11:26 AM EDT Please schedule CT's here Please reschedule MRI to [facility] facility ELISABET RTC after scans Repeat labs on return documented in this encounterParkwood Hospital10-24-2022 Nurse Note* Heidi Horta LPN - 05/06/2022 10:58 AM EDT Radiation Therapy - Patient Education Note PATIENT NAME: Kirt Reyna PATIENT May 06, 2022 [facility]/LOCATION: [facility] READINESS TO LEARN Cognitive Ability: [...] and family verbalized understanding of radiation treatments, sideeffects, OTV, and transportation. Follow-up plan: Recommend - Recommend continued instruction and follow up as directed Supplemental material: Informational handouts on Bladder function, Diarrhea, Fatigue, Pelvic handout, Skin changes, and greyson bottle and patient education binder. Referral (recommendation): None, Pt denied need for social work, van service, and graphic editor. Was approved? No Signed by: Heidi Horta LPN documented in this encounterParkwood Hospital10-24-2022 History of Present illness Narrative* Paco Bonds MD - 05/06/2022 10:54 AM EDT Images from the original note were not included. NAME: Kirt Reyna [facility] NO.: [id number] DATE OF SERVICE: May 06, 2022 Referring Provider: Phil Dougherty Consultation requested by Dr. Dougherty for an opinion regarding Ms. Kirt Reyna, and my final recommendations will be communicated back to the requesting physician by way of shared medical record or letter via US mail. Additional Clinicians involved in Kirt Reyna's care: Sondra Liu, Vitaly NilToribio jenkins DIAGNOSIS: Anal Ca. 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 Paco Bonds MD, CPE Hematology and Oncology Services Provided at: [place], [place] CC: Phil Liu documented in this encounterParkwood Hospital10-24-2022 Nurse Note* Radha Lunsford MA - 05/06/2022 10:50 AM EDT Patient is concerned about getting Chemo due to having POTS, she spoke to Dr. Michaud and another Physician and they do not think she needs Chemo but wants to discuss this with you. Radha Lunsford MA documented in this encounterParkwood Hospital10-20-2022 Nurse Note* Lita Stinson RN - 05/02/2022 9:06 AM EDT What is the reason for your visit today? New patient consult for rectal mass Who is your referring physician? Dr Liu Are you having poor oral intake? NO Have you had unintentional weight loss of 15 lbs/7 Kg in the last 3-6 months? NO Bowels: soft / with bleeding with stools and itching Wound: none Temperature: No Drains: No documented in this encounterParkwood Hospital10-20-2022 History of Present illness Narrative* Phil Dougherty MD - 05/02/2022 9:00 AM EDT COLORECTAL SURGERY May 02, 2022 Kirt Reyna 52 year old This consult was requested by Dr. Liu and my final recommendations will be communicated to the requesting health care provider by way of the shared medical record for internal providers or letter [employer] for external providers. Chief Complaint: [...] reveals left sided and posterior anorectal mass [employer] Supervisor present: Yes, Whitley Pina Anoscopy: The patient [...] morbidity, mortality and/or complications of treatment plan: [facility] Phil Dougherty MD Colorectal Surgery documented in this encounterParkwood Hospital10-12-2022 NoteOPERATIVE NOTE OPERATION DATE: 04/24/2022 PREOPERATIVE DIAGNOSIS: Rectal [...] room in good condition. CC: Sondra Liu M.D.[facility]08-10-2022 NoteChief Complaint consultation for hemorroids HPI Staff 52 [...] swallowing difficulties, no hearing loss, no ear infection(s),no nose bleeds. Cardiovascular: normal blood pressure, no [...] Diabetes mellitus type 2: Father. Parkinson disease: Father.[facility] HospitalComment on above:Result Comment: Electronically Signed By: RODERICK SERNA, Vitaly Machado\Date and Time Signed: 02/20/22 17:08 EDTEvaluation + Plan note No data available for this section General Surgery [employer] Evaluation note* Diagnosis Rectal mass- Primary Other symptoms involving digestive system Anal cancer (HCC) Malignant neoplasm of anus, unspecified site [facility] Diagnosis OPENED IN ERROR- Primary To allow closing an encounter opened in error (used in Smart[employer]) [facility]* Diagnosis Anal cancer (HCC) Malignant neoplasm of anus, unspecified site [facility]* Diagnosis Anal cancer (HCC) Malignant neoplasm of anus, unspecified site [facility]* Diagnosis Anal cancer (HCC)- Primary Malignant neoplasm of anus, unspecified site POTS (postural orthostatic tachycardia syndrome) Tachycardia, unspecified [facility]* Diagnosis Anal cancer (HCC)- Primary Malignant neoplasm of anus, unspecified site documented in this encounter [facility] note* Diagnosis Anal cancer (HCC)- Primary Malignant neoplasm of anus, unspecified site documented in this encounter [facility] note* Diagnosis Anal cancer (HCC)- Primary Malignant neoplasm of anus, unspecified site documented in this encounter [facility] note* Diagnosis Anal cancer (HCC)- Primary Malignant neoplasm of anus, unspecified site POTS (postural orthostatic tachycardia syndrome) Tachycardia, unspecified documented in this encounter [facility] note* Diagnosis Anal cancer (HCC)- Primary Malignant neoplasm of anus, unspecified site POTS (postural orthostatic tachycardia syndrome) Tachycardia, unspecified documented in this encounter [facility] note* Diagnosis Anal cancer (HCC) Malignant neoplasm of anus, unspecified site documented in this encounter [facility] note* Diagnosis Anal cancer (HCC)- Primary Malignant neoplasm of anus, unspecified site POTS (postural orthostatic tachycardia syndrome) Tachycardia, unspecified documented in this encounter [facility] note* Diagnosis Anal cancer (HCC)- Primary Malignant neoplasm of anus, unspecified site POTS (postural orthostatic tachycardia syndrome) Tachycardia, unspecified documented in this encounter [facility] note* Diagnosis Anal cancer (HCC)- Primary Malignant neoplasm of anus, unspecified site POTS (postural orthostatic tachycardia syndrome) Tachycardia, unspecified documented in this encounter [facility] note* Diagnosis Anal cancer (HCC)- Primary Malignant neoplasm of anus, unspecified site POTS (postural orthostatic tachycardia syndrome) Tachycardia, unspecified documented in this encounter [facility] note* Diagnosis Anal cancer (HCC)- Primary Malignant neoplasm of anus, unspecified site documented in this encounter [facility] note* Diagnosis Anal cancer (HCC)- Primary Malignant neoplasm of anus, unspecified site documented in this encounter [facility] note* Diagnosis Anal cancer (HCC)- Primary Malignant neoplasm of anus, unspecified site POTS (postural orthostatic tachycardia syndrome) Tachycardia, unspecified documented in this encounter [facility] note* Diagnosis Anal cancer (HCC)- Primary Malignant neoplasm of anus, unspecified site POTS (postural orthostatic tachycardia syndrome) Tachycardia, unspecified documented in this encounter [facility] note* Diagnosis Anal cancer (HCC)- Primary Malignant neoplasm of anus, unspecified site POTS (postural orthostatic tachycardia syndrome) Tachycardia, unspecified [facility]* Diagnosis Anal cancer (HCC)- Primary Malignant neoplasm of anus, unspecified site documented in this [facility]* Diagnosis Anal cancer (HCC)- Primary Malignant neoplasm of anus, unspecified site POTS (postural orthostatic tachycardia syndrome) Tachycardia, unspecified documented [facility] this [facility]* Diagnosis Anal cancer (HCC)- Primary Malignant neoplasm of anus, unspecified site POTS (postural orthostatic tachycardia syndrome) Tachycardia, unspecified documented in this [facility]* Diagnosis Anal cancer (HCC)- Primary Malignant neoplasm of anus, unspecified site POTS (postural orthostatic tachycardia syndrome) Tachycardia, unspecified documented [facility] this [facility]* Diagnosis Anal cancer (HCC)- Primary Malignant neoplasm of anus, unspecified site POTS (postural orthostatic tachycardia syndrome) Tachycardia, unspecified documented in this encounter [facility] note* Diagnosis Anal cancer (HCC)- Primary Malignant neoplasm of anus, unspecified site documented in this encounter [facility] note* Diagnosis Anal cancer (HCC)- Primary Malignant neoplasm of anus, unspecified site POTS (postural orthostatic tachycardia syndrome) Tachycardia, unspecified documented [facility] this [facility]* Diagnosis Anal cancer (HCC)- Primary Malignant neoplasm of anus, unspecified site documented in this [facility]* Diagnosis Anal cancer (HCC) Malignant neoplasm of anus, unspecified site documented in this encounter [facility]* Diagnosis Anal cancer (HCC)- Primary Malignant neoplasm of anus, unspecified site documented in this encounter [facility]* Diagnosis Anal cancer (HCC)- Primary Malignant neoplasm of anus, unspecified site POTS (postural orthostatic tachycardia syndrome) Tachycardia, unspecified documented in this encounter [facility] note* Diagnosis Malignant neoplasm of anus (HCC)- Primary Malignant neoplasm of anus, unspecified site Anal cancer (HCC) Malignant neoplasm of anus, unspecified site documented in this encounter [facility] note* Diagnosis 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, unspecified site documented in this encounter [facility]* Diagnosis Anal cancer (HCC)- Primary Malignant neoplasm of anus, unspecified site POTS (postural orthostatic tachycardia syndrome) Tachycardia, unspecified [facility]* Diagnosis Malignant neoplasm of anus (HCC)- Primary Malignant neoplasm of anus, unspecified site [facility]* Diagnosis Encounter for follow-up surveillance of anal cancer- Primary [facility]* Diagnosis Encounter for screening for osteoporosis- Primary Special screening for osteoporosis Symptomatic menopausal or female climacteric states Rectal cancer (HCC) Malignant neoplasm of rectum [facility]* Diagnosis Anal cancer (HCC)- Primary Malignant neoplasm of anus, unspecified site POTS (postural orthostatic tachycardia syndrome) Tachycardia, unspecified [facility]* Diagnosis Malignant neoplasm of anus (HCC)- Primary Malignant neoplasm of anus, unspecified site [facility]* Diagnosis 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, unspecified site [facility]* Diagnosis 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, unspecified site [facility]* Diagnosis Anal cancer (HCC)- Primary Malignant neoplasm of anus, unspecified site POTS (postural orthostatic tachycardia syndrome) Tachycardia, unspecified Encounter for follow-up surveillance of anal cancer- Primary [facility]* Diagnosis Encounter for follow-up surveillance of anal cancer- Primary [facility]* Diagnosis Encounter for screening for osteoporosis- Primary Special screening for osteoporosis 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 Anal cancer (HCC) Malignant neoplasm of anus, unspecified site [facility]* Diagnosis Anal itching- Primary Pruritus ani Diarrhea, unspecified type [facility]* Diagnosis 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, unspecified site documented [facility] this [facility]* Diagnosis Anal cancer (HCC) Malignant neoplasm of anus, unspecified site [facility]* Diagnosis Anal cancer (HCC) Malignant neoplasm of anus, unspecified site documented in this encounter [facility]* Diagnosis Anal cancer (HCC) Malignant neoplasm of anus, unspecified site documented in this encounter [facility]* Diagnosis Encounter for follow-up surveillance of anal cancer- Primary documented in this encounter [facility]* Diagnosis 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 documented in this encounter [facility] note* Diagnosis Anal cancer (HCC) Malignant neoplasm of anus, unspecified site POTS (postural orthostatic tachycardia syndrome) Tachycardia, unspecified documented in this encounter [facility] note* Diagnosis Anal cancer (HCC)- Primary Malignant neoplasm of anus, unspecified site Encounter for follow-up surveillance of anal cancer- Primary documented in this encounter [facility]* Diagnosis Encounter for follow-up surveillance of anal cancer- Primary documented [facility] this [facility]* Diagnosis Well woman exam with routine gynecological exam Routine gynecological examination Encounter for screening mammogram for malignant neoplasm of breast Postmenopausal state Asymptomatic postmenopausal status (age-related) (natural) documented in this encounter [facility] Discharge instructions No data available for this section General Surgery [employer] [employer] note No data available for this section General Surgery [employer] Reason for visit Narrative* MRI/CT (Routine) - Closed SpecialtyDiagnoses / ProceduresReferred By ContactReferred To ContactMR IMAGING Diagnoses Malignant neoplasm of pelvis (HCC) Procedures MRI RECTUM WO/W IVCON MRI PELVIS W/O & W/CONTRAST MATERIAL Toribio Michaud MD [address] [place] [address] [place] [address] Phone: tel: fax: [place] [id number] Referral IDStatusReasonStart DateExpiration DateVisits RequestedVisits [id number] Auto-Generated Referral Patient Cleared - 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 advise to proceed or did not respond [facility] Reason for Referral SpecialtyDiagnoses / ProceduresReferred By ContactReferred To ContactRadiology / CT IMAGING Diagnoses Malignant neoplasm of anus (HCC) Procedures CT CHEST WO IVCON DIAGNOSTIC COMPUTED TOMOGRAPHY THORAX W/O CNTRST Toribio Michaud MD [address] [place] [address] [place] [address] Toribio Michaud MD [address] [place] [address] [place] [address] Referral IDStatusReasonStart DateExpiration DateVisits RequestedVisits [id number] Auto-Generated Referral Patient Cleared - 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 advise to proceed or did not respond [id number] / ProceduresReferred By ContactReferred To ContactCT IMAGING Diagnoses Malignant neoplasm of anus (HCC) Procedures CT CHEST WO IVCON DIAGNOSTIC COMPUTED TOMOGRAPHY THORAX W/O Toribio Boogie MD [address] [place] [address] [place] [address] Ct [address] [facility] Referral IDStatusReasonStart DateExpiration DateVisits RequestedVisits [id number] for Response Auto-Generated Referral [id number] / ProceduresReferred By ContactReferred To ContactMR IMAGING Diagnoses Malignant neoplasm of anus (HCC) Procedures MRI ABDOMEN WO/W IVCON MRI ABDOMEN W/O & W/CONTRAST MATERIAL Toribio Michaud MD [address] [place] [address] [place] [address] Mr Imaging [facility] Referral IDStatusReasonStart DateExpiration DateVisits RequestedVisits [id number] Auto-Generated Referral [id number] / ProceduresReferred By ContactReferred To ContactMR IMAGING Diagnoses Malignant neoplasm of anus (HCC) Procedures MRI RECTUM WO/W IVCON MRI PELVIS W/O & W/CONTRAST MATERIAL Toribio Michaud MD [address] [place] [address] [place] [address] [place] [address] Referral IDStatusReasonStart DateExpiration DateVisits RequestedVisits [id number] Auto-Generated Referral /[id number] / ProceduresReferred By ContactReferred To [facility] Diagnoses Malignant neoplasm of anus (HCC) Procedures CONSULT TO PHYSICAL THERAPY PHYSICAL THERAPY EVALUATION HIGH COMPLEX 45 MINS Toribio Michaud MD [address] [place] [address] [place] [address] [facility] [place] [address] [place] [address] Referral IDStatusReasonStart DateExpiration DateVisits RequestedVisits [id number] Auto-Generated Referral /[id number] / ProceduresReferred By ContactReferred To ContactMR IMAGING Diagnoses Malignant neoplasm of anus (HCC) Procedures MRI RECTUM WO/W IVCON MRI PELVIS W/O & W/CONTRAST MATERIAL Toribio Michaud MD [address] [place] [address] [place] [address] Mr Imaging Referral IDStatusReasonStart DateExpiration DateVisits RequestedVisits [id number] Review Auto-Generated Referral /[id number] / ProceduresReferred By ContactReferred To ContactRadiation Oncology Diagnoses Anal cancer (HCC) Procedures RAD/ONC CONSULT OFFICE/OUTPATIENT [facility] 60-[place] [address] [address] [facility] [address] [place] [phone] Referral IDStatusReasonStart DateExpiration DateVisits RequestedVisits [id number] PCP Requested Referral [id number] / ProceduresReferred By ContactReferred To ContactOncology Diagnoses Anal cancer (HCC) Procedures CONSULT TO ONCOLOGY OFFICE/OUTPATIENT [facility] MDM 60-[place] [address] [address] [facility] [address] [place] [address] Referral IDStatusReasonStart DateExpiration DateVisits RequestedVisits [id number] PCP Requested Referral [id number] / ProceduresReferred By ContactReferred To ContactCT IMAGING Diagnoses Anal cancer (HCC) Procedures CT ABDOMEN W IVCON [place] ABDOMEN [place] [address] [address] [facility] [address] [phone] Imaging Referral IDStatusReasonStart DateExpiration DateVisits RequestedVisits [id number] Review Auto-Generated Referral [id number] / ProceduresReferred By ContactReferred To ContactCT IMAGING Diagnoses Anal cancer (HCC) Procedures CT CHEST W IVCON DIAGNOSTIC COMPUTED TOMOGRAPHY THORAX W/[place] [address] [facility] [address] [phone] Imaging Referral IDStatusReasonStart DateExpiration DateVisits RequestedVisits [id number] Review Auto-Generated Referral [id number] / ProceduresReferred By ContactReferred To ContactMR IMAGING Diagnoses Anal cancer (HCC) Procedures MRI RECTUM WO/W IVCON MRI PELVIS W/O & [place] [address] [facility] [address] [place] [address] Mr Imaging Referral IDStatusReasonStart DateExpiration DateVisits RequestedVisits [id number] Review Auto-Generated Referral Summary Purpose Family History No Family History [...] Advanced Directives Records Found Medications Administered Section Medication OrderMAR ActionAction DateDoseRateSite NaCl 0.9% 1,000 mL INTRAVENOUS, at 999 mL/hr, Administer over 1 Hours, ONCE, 1 dose, On Fri06/14/22 at 1330 New Bag/Syringe/Lvdkli3006/14/2022 1:25 PM [id number] mL/hrMedication OrderMAR Action Action DateDoseRateSite NaCl 0.9% 1,000 mL INTRAVENOUS, at 999 mL/hr, Administer over 1 Hours, ONCE, 1 dose, On Fri06/19/22 at 1430 New Bag/Syringe/Ugjvsb4006/19/2022 2:22 PM [id number] mL/hrMedication OrderMAR Action Action DateDoseRateSite NaCl 0.9% 1,000 mL INTRAVENOUS, at 999 mL/hr, Administer over 1 Hours, ONCE, 1 dose, On Fri06/21/22 at 1330 New Bag/Syringe/Elblhe2606/21/2022 1:30 PM [id number] mL/hrMedication OrderMAR Action Action DateDoseRateSite NaCl 0.9% 1,000 mL INTRAVENOUS, at 999 mL/hr, Administer over 1 Hours, ONCE, 1 dose, On Fri06/24/22 at 1400 New Bag/Syringe/Pwcorv0206/24/2022 12:15 PM [id number] mL/hrMedication OrderMAR Action Action DateDoseRateSite NaCl 0.9% 1,000 mL INTRAVENOUS, at 999 mL/hr, Administer over 1 Hours, ONCE, 1 dose, On Fri06/28/22 at 1030 New Bag/Syringe/Ueuxlm6906/28/2022 10:30 AM [id number] mL/hrMedication OrderMAR Action Action DateDoseRateSite NaCl 0.9% 1,000 mL INTRAVENOUS, at 999 mL/hr, Administer over 1 Hours, ONCE, 1 dose, On Fri07/10/22 at 1000 New Bag/Syringe/Iocrka2307/10/2022 9:55 AM [id number] mL/hrMedication OrderMAR Action Action DateDoseRateSite NaCl 0.9% 1,000 mL INTRAVENOUS, at 999 mL/hr, Administer over 1 Hours, ONCE, 1 dose, On Fri07/12/22 at 1030 New Bag/Syringe/Ugqtpi1007/12/2022 10:20 AM [id number] mL/hrMedication OrderMAR Action Action DateDoseRateSite NaCl 0.9% 1,000 mL INTRAVENOUS, at 999 mL/hr, Administer over 1 Hours, ONCE, 1 dose, On Fri07/17/22 at 1130 New Bag/Syringe/Zxzcim9007/17/2022 11:23 AM [id number] mL/hrMedication OrderMAR Action Action DateDoseRateSite NaCl 0.9% 1,000 mL INTRAVENOUS, at 999 mL/hr, Administer over 1 Hours, ONCE, 1 dose, On Fri07/19/22 at 1030 New Bag/Syringe/Jvqdpb6307/19/2022 10:22 AM IEI457 mL/hrMedication OrderMAR Action Action DateDoseRateSite NaCl 0.9% 1,000 mL INTRAVENOUS, at 999 mL/hr, Administer over 1 Hours, ONCE, 1 dose, On Fri07/22/22 at 1030 New Bag/Syringe/Jjeude8807/22/2022 10:24 AM [id number] mL/hrMedication OrderMAR Action Action DateDoseRateSite NaCl 0.9% 1,000 mL INTRAVENOUS, at 999 mL/hr, Administer over 1 Hours, ONCE, 1 dose, On Fri07/24/22 at 1100 New Bag/Syringe/Zuguht6607/24/2022 10:30 AM JGW311 mL/hr Additional Source Comments Care Team (unrecognized sect ion and content) Team MemberRelationshipSpecialtyStart DateEnd Date Sondra Liu MD PCP - [facility]08/17/13Team MemberRelationshipSpecialtyStart DateSondra Mccarthy MD PCP - Generalmi Medicine08/17/13Team MemberRelationshipSpecialtyStart DateEnd Date Sondra Liu MD PCP - Generalmily Medicine08/17/13Team MemberRelationshipSpecialtyStart DateEnd Sondra Lopez MD PCP - Generalmily Medicine08/17/13Team MemberRelationshipSpecialtyStart DateEnd Sondra Lopez MD [facility] - [facility]08/17/13Team MemberRelationshipSpecialtyStart DateEnd Date Sondra Liu MD PCP - [facility] Medicine08/17/13 Paco Bonds MD [address] [facility] [place] [address] PhysicianHematology/Kxzlksud83/10/22 Gerardo Mckinnon, ANTITANK ASSAULT GUNNER.MANAGER TALENT ACQUISITION [address] [facility] [place] [address] Nurse PractitionerHematology/Qnksywex68/10/22 Jah Whitehead, RN [address] [facility] [place] [address] Specialty Care CoordinatorHematology/Dljfujhd40/10/22 Toribio Michaud MD [address] [facility] [place] [address] PhysicianRadiation Hkkdijef78/10/22Team MemberRelationshipSpecialtyStart DateEnd Sondra Liu MD PCP - [facility] Medicine08/17/13 Paco Bonds MD [address] [facility] [place] [address] PhysicianHematology/Ymvlnzfm98/10/22 Gerardo Mckinnon, ANTITANK ASSAULT GUNNER.MANAGER TALENT ACQUISITION [address] [facility] [place] [address] Nurse PractitionerHematology/Hsmjtyny80/10/22 Jah Whitehead, RN [address] [facility] [place] [address] Specialty Care CoordinatorHematology/Snzbppgy45/10/22 Toribio Michaud MD [address] [facility] [place] [address] PhysicianRadiation Hhpajmwp31/10/22Team MemberRelationshipSpecialtyStart DateEnd Date Sondra Liu MD PCP - [facility] Medicine08/17/13 Paco Bonds MD [address] [facility] [place] [address] PhysicianHematology/Tikxcfpu44/10/22 Gerardo Mckinnon, ANTITANK ASSAULT GUNNER.MANAGER TALENT ACQUISITION [address] [place] [address] Nurse PractitionerHematology/Rdufjrzt74/10/22 Jah Whitehead, BLAIR [address] [place] [address] Specialty Care CoordinatorHematology/Nbcqycxz68/10/22 Toribio Michaud MD [address] [place] [address] PhysicianRadiation Gfssskti31/10/22Te MemberRelationshipSpecialtyStart DateEnd Date Sondra Liu MD PCP - [facility] Medicine08/17/13 Paco Bonds MD [address] [place] [address] PhysicianHematology/Wmrohkah41/10/22 Gerardo Mckinnon, ANTITANK ASSAULT GUNNER.MANAGER TALENT ACQUISITION [address] [place] [address] Nurse PractitionerHematology/Zjwwolzv48/10/22 Jah Whitehead, BLAIR [address] [place] [address] Specialty Care CoordinatorHematology/Oaupdcgn67/10/22 Toribio Michaud MD [address] [facility] [place] [address] PhysicianRadiation Rcukwjza00/10/22Team MemberRelationshipSpecialtyStart DateEnd Date Sondra Liu MD PCP - Community [facility]08/17/13 Paco Bonds MD [address] [facility] [place] [address] PhysicianHematology/Tqhoqwvy27/10/22 Gerardo Mckinnon, ANTITANK ASSAULT GUNNER.MANAGER TALENT ACQUISITION [address] [place] [address] Nurse PractitionerHematology/Lhxjodoq69/10/22 Jah Whitehead, BLAIR [address] [place] [address] Specialty Care CoordinatorHematology/Pktcpeff45/10/22 Toribio Michaud MD [address] [facility] [place] [address] PhysicianRadiation Qxaitiwj89/10/22Te MemberRelationshipSpecialtyStart DateEnd Date Sondra Liu MD PCP - [facility]08/17/13 Paco Bonds MD [address] [facility] [place] [address] PhysicianHematology/Qftldybb72/10/22 Gerardo Mckinnon, ANTITANK ASSAULT GUNNER.MANAGER TALENT ACQUISITION [address] [place] [address] Nurse PractitionerHematology/Ueynvemh46/10/22 Jah Whitehead, BLAIR [address] [place], [place] [address] Specialty Care CoordinatorHematology/Xyzquitg14/10/22 Toribio Michaud MD [address] [place] [address] PhysicianRadiation Hpwwvsgi68/10/22Team MemberRelationshipSpecialtyStart DateEnd Date Sondra Liu MD PCP - [facility]08/17/13 Paoc Bonds MD [address] [place] [address] PhysicianHematology/Wgwoketh80/10/22 Gerardo Mckinnon, ANTITANK ASSAULT GUNNER.MANAGER TALENT ACQUISITION [address] [place] [address] Nurse PractitionerHematology/Zzfixfkr84/10/22 Jah Whitehead, BLAIR [address] [place] [address] Specialty Care CoordinatorHematology/Vezctfdh69/10/22 Toribio Michaud MD [address] [place] [address] PhysicianRadiation Wuutjbim46/10/22Te MemberRelationshipSpecialtyStart DateEnd Date Sondra Liu MD PCP - [facility]08/17/13 Paco Bonds MD [address] [place] [address] PhysicianHematology/Rqbnunpu49/10/22 Gerardo Mckinnon, ANTITANK ASSAULT GUNNER.MANAGER TALENT ACQUISITION [address] [place] [address] Nurse PractitionerHematology/Klrikqbq20/10/22 Jah Whitehead, BLAIR [address] [facility] [place] [address] Specialty Care CoordinatorHematology/Zzwjvonw33/10/22 Toribio Michaud MD [address] [place] [address] PhysicianRadiation Qzbeopum38/10/22Team MemberRelationshipSpecialtyStart DateEnd Date Sondra Liu MD [facility] - [facility]13 Paco Bonds MD [address] [facility] [place] [address] PhysicianHematology/Vlfrouhn55/10/22 Gerardo Mckinnon, ANTITANK ASSAULT GUNNER.MANAGER TALENT ACQUISITION [address] [place] [address] Nurse PractitionerHematology/Idofesvt55/10/22 Jah Whitehead, BLAIR [address] [place] [address] Specialty Care CoordinatorHematology/Ddimemnl07/10/22 Toribio Michaud MD [address] [place] [address] PhysicianRadiation Esvzstwk61/10/22Team MemberRelationshipSpecialtyStart DateEnd Date Sondra Liu MD PCP - [facility]08/17/13 Paco Bonds MD [address] [facility] [place] [address] PhysicianHematology/Bfowfxde47/10/22 Gerardo Mckinnon, ANTITANK ASSAULT GUNNER.MANAGER TALENT ACQUISITION [address] [place] [address] Nurse PractitionerHematology/Riubpifu40/10/22 Jah Whitehead, BLIAR [address] [place] [address] Specialty Care CoordinatorHematology/Awevpnze26/10/22 Toribio Michaud MD [address] [place] [address] PhysicianRadiation Jmikwiup21/10/22Team MemberRelationshipSpecialtyStart DateEnd Date Sondra Liu MD PCP - [facility]08/17/13 Paco Bonds MD [address] [place] [address] PhysicianHematology/Wgusmqzx87/10/22 Gerardo Mckinnon, ANTITANK ASSAULT GUNNER.MANAGER TALENT ACQUISITION [address] [place] [address] Nurse PractitionerHematology/Oxyeoiik84/10/22 Jah Whitehead, BLAIR [address] [place] [address] Specialty Care CoordinatorHematology/Goeftgph53/10/22 Toribio Michaud MD [address] [place] [address] PhysicianRadiation Cxiclzka80/10/22Team MemberRelationshipSpecialtyStart DateEnd Date Sondra Liu MD PCP - [facility]08/17/13 Paco Bonds MD [address] [place] [address] PhysicianHematology/Rhgflcgc09/10/22 Gerardo Mckinnon, ANTITANK ASSAULT GUNNER.MANAGER TALENT ACQUISITION [address] [place] [address] Nurse PractitionerHematology/Yjjirlmv90/10/22 Jah Whitehead, BLAIR [address] [place] [address] Specialty Care CoordinatorHematology/Vuhkovys71/10/22 Toribio Michaud MD [address] [place] [address] PhysicianRadiation Rodxlosx31/10/22Team MemberRelationshipSpecialtyStart DateEnd Date Sondra Liu MD PCP - [facility]08/17/13 Paco Bonds MD [address] [place] [address] PhysicianHematology/Fzptqbqo27/10/22 Gerardo Mckinnon, ANTITANK ASSAULT GUNNER.MANAGER TALENT ACQUISITION [address] [place] [address] Nurse PractitionerHematology/Exkfcyps77/10/22 Jah Whitehead, RN [address] [place] [address] Specialty Care CoordinatorHematology/Ssbodkxp14/10/22 Toribio Michaud MD [address] [place] [address] PhysicianRadiation Xocastsp61/10/22Team MemberRelationshipSpecialtyStart DateEnd Date Sondra Liu MD PCP - [facility]08/17/13 Paco Bonds MD [address] [place] [address] PhysicianHematology/Omsjmlwu89/10/22 Gerardo Mckinnon, ANTITANK ASSAULT GUNNER.MANAGER TALENT ACQUISITION [address] [place] [address] Nurse PractitionerHematology/Nupufetq72/10/22 Jah Whitehead, RN [address] [place] [address] Specialty Care CoordinatorHematology/Xtfhorqy96/10/22 Toribio Michaud MD [address] [place] [address] PhysicianRadiation Onwtzydn95/10/22Team MemberRelationshipSpecialtyStart DateEnd Date Sondra Liu MD PCP - [facility]08/17/13 Paco Bonds MD [address] [place] [address] PhysicianHematology/Iukouzyt58/10/22 Gerardo Mckinnon, ANTITANK ASSAULT GUNNER.MANAGER TALENT ACQUISITION [address] [place] [address] Nurse PractitionerHematology/Yfuqlwff97/10/22 Jah Whitehead, RN [address] [place] [address] Specialty Care CoordinatorHematology/Pmhsnuio09/10/22 Toribio Michaud MD [address] [place] [address] PhysicianRadiation Qpleiuau91/10/22Team MemberRelationshipSpecialtyStart DateEnd Date Sondra Liu MD PCP - [facility]08/17/13 Paco Bonds MD [address] [place] [address] PhysicianHematology/Hpwlnhlt99/10/22 Gerardo Mckinnon, ANTITANK ASSAULT GUNNER.MANAGER TALENT ACQUISITION [address] [place] [address] Nurse PractitionerHematology/Rlyolplz91/10/22 Jah Whitehead, BLAIR [address] [place] [address] Specialty Care CoordinatorHematology/Pssjnofb91/10/22 Toribio Michaud MD [address] [place] [address] PhysicianRadiation Vpjjpcre47/10/22Team MemberRelationshipSpecialtyStart DateEnd Date Sondra Liu MD PCP - [facility]08/17/13 Paco Bonds MD [address] [place] [address] PhysicianHematology/Qicmxpcm57/10/22 Gerardo Mckinnon, ANTITANK ASSAULT GUNNER.MANAGER TALENT ACQUISITION [address] [place] [address] Nurse PractitionerHematology/Scxohvke47/10/22 Jah Whitehead, BLAIR [address] [place] [address] Specialty Care CoordinatorHematology/Jbzltcox75/10/22 Toribio Michaud MD [address] [place] [address] PhysicianRadiation Oiocmuqh77/10/22Team MemberRelationshipSpecialtyStart DateEnd Date Sondra Liu MD PCP - [facility]08/17/13 Paco Bonds MD [address] [place] [address] PhysicianHematology/Forkkuog33/10/22 Gerardo Mckinnon, ANTITANK ASSAULT GUNNER.[address] [place] [address] Nurse PractitionerHematology/Edmfaeuy30/10/22 Jah Whitehead, BLAIR [address] [place] [address] Specialty Care CoordinatorHematology/Eihprkzk68/10/22 Toribio Michaud MD [address] [place] [address] PhysicianRadiation Uoqehnja03/10/22Team MemberRelationshipSpecialtyStart DateEnd Date Sondra Liu MD PCP - [facility]08/17/13 Paco Bonds MD [address] [place] [address] PhysicianHematology/Ngvtcszh82/10/22 Gerardo Mckinnon, ANTITANK ASSAULT GUNNER.[facility] [address] [place] [address] Nurse PractitionerHematology/Zgvoodjy41/10/22 Jah Whitehead, BLAIR [address] [place] [address] Specialty Care CoordinatorHematology/Bckyvgqp11/10/22 Toribio Michaud MD [address] [place] [address] PhysicianRadiation Vpfodygd44/10/22Team MemberRelationshipSpecialtyStart DateEnd Date Sondra Liu MD PCP - [facility]08/17/13 Paco Bonds MD [address] [place] [address] PhysicianHematology/Qzijylpy78/10/22 Gerardo Mckinnon, ANTITANK ASSAULT GUNNER.MANAGER TALENT ACQUISITION [address] [place] [address] Nurse PractitionerHematology/Lamutdon79/10/22 Jah Whitehead, RN [address] [place] [address] Specialty Care CoordinatorHematology/Neypcmla43/10/22 Toribio Michaud MD [address] [place] [address] PhysicianRadiation Mfvcceyc17/10/22Team MemberRelationshipSpecialtyStart DateEnd Date Sondra Liu MD [facility]08/17/13 Paco Bonds MD [address] [place] [address] PhysicianHematology/Uvnsuttv22/10/22 Gerardo Mckinnon, ANTITANK ASSAULT GUNNER.MANAGER TALENT ACQUISITION [address] [place] [address] Nurse PractitionerHematology/Mgdwangz93/10/22 Jah Whitehead, RN [address] [place] [address] Specialty Care CoordinatorHematology/Bibigiye42/10/22 Toribio Michaud MD [address] [place] [address] PhysicianRadiation Cvgwaont39/10/22Team MemberRelationshipSpecialtyStart DateEnd Date Sondra Liu MD PCP - [facility]08/17/13 Paco Bonds MD [address] [facility] [place] [address] PhysicianHematology/Dlufghwm05/10/22 Gerardo Mckinnon, ANTITANK ASSAULT GUNNER.[facility] [address] [place] [address] Nurse PractitionerHematology/Hepeucyk60/10/22 Jah Whitehead, RN [address] [facility] [place] [address] Specialty Care CoordinatorHematology/Zipftedn77/10/22 Toribio Michaud MD [address] [facility] [place] [address] PhysicianRadiation Tutajcrr98/10/22Team MemberRelationshipSpecialtyStart DateEnd Date Sondra Liu MD PCP - GeneralF[facility]08/17/13 Paco Bonds MD [address] [facility] [place] [address] PhysicianHematology/Vdkihnvo71/10/22 Gerardo Mckinnon, ANTITANK ASSAULT GUNNER.[facility] [address] [place] [address] Nurse PractitionerHematology/Qnxewklp15/10/22 Jah Whitehead, RN [address] [facility] [place] [address] Specialty Care CoordinatorHematology/Lpurihjn13/10/22 Toribio Michaud MD [address] [facility] [place] [address] PhysicianRadiation Xwyyezsc46/10/22Team MemberRelationshipSpecialtyStart DateEnd Date Sondra Liu MD [facility]CP - [facility]08/17/13 Paco Bonds MD [address] [facility] [place] [address] PhysicianHematology/Trtpytrt95/10/22 Gerardo Mckinnon, ANTITANK ASSAULT GUNNER.MANAGER TALENT ACQUISITION [address] [place] [address] Nurse PractitionerHematology/Sqwtgrtl48/10/22 Jah Whitehead, BLAIR [address] [place] [address] Specialty Care CoordinatorHematology/Yaqrjjne59/10/22 Toribio Michaud MD [address] [facility] [place] [address] PhysicianRadiation Htoilarz44/10/22Team MemberRelationshipSpecialtyStart DateEnd Date Sondra Liu MD PCP - [facility]08/17/13 Paco Bonds MD [address] [facility] [place] [address] PhysicianHematology/Wsvxnbrg96/10/22 Gerardo Mckinnon, ANTITANK ASSAULT GUNNER.MANAGER TALENT ACQUISITION [address] [place] [address] Nurse PractitionerHematology/Eltqjlfz53/10/22 Jah Whitehead, RN [address] [place] [address] Specialty Care CoordinatorHematology/Iejknrmg16/10/22 Toribio Michaud MD [address] [facility] [place] [address] PhysicianRadiation Ypaconef80/10/22Team MemberRelationshipSpecialtyStart DateEnd Date Sondra Liu MD PCP - [facility]08/17/13 Paco Bonds MD [address] [facility] [place] [address] PhysicianHematology/Gqvawohj39/10/22 Gerardo Mckinnon, ANTITANK ASSAULT GUNNER.MANAGER TALENT ACQUISITION [address] [facility] [place] [address] Nurse PractitionerHematology/Xxrspmzk98/10/22 Jah Whitehead, BLAIR [address] [facility] [place] [address] Specialty Care CoordinatorHematology/Bvwmxvse28/10/22 Toribio Michaud MD [address] [facility] [place] [address] PhysicianRadiation Stwjetjh22/10/22Team MemberRelationshipSpecialtyStart DateEnd Date Sondra Liu MD PCP - [facility]08/17/13 Paco Bonds MD [address] [facility] [place] [address] PhysicianHematology/Yajoomvc16/10/22 Gerardo Mckinnon, ANTITANK ASSAULT GUNNER.MANAGER TALENT ACQUISITION [address] [place] [address] Nurse PractitionerHematology/Zezwprls62/10/22 Jah Whitehead, BLAIR [address] [facility] [place] [address] Specialty Care CoordinatorHematology/Ctscoppc60/10/22 Toribio Michaud MD [address] [facility] [place] [address] PhysicianRadiation Lxvqllgr91/10/22Team MemberRelationshipSpecialtyStart DateEnd Date Sondra Liu MD PCP - [facility]2 Paco Bonds MD [address] [facility] [place] [address] PhysicianHematology/Ruqvaryi11/10/22 Gerardo Mckinnon, ANTITANK ASSAULT GUNNER.MANAGER TALENT ACQUISITION [address] [facility] [place] [address] Nurse PractitionerHematology/Vvxcynze35/10/22 Jah Whitehead, RN [address] [facility] [place] [address] Specialty Care CoordinatorHematology/Cmwqdeja98/10/22 Toribio Michaud MD [address] [facility] [place] [address] PhysicianRadiation Vprtvlkb63/10/22Team MemberRelationshipSpecialtyStart DateEnd Date Sondra Liu MD PCP - [facility]08/17/13 Paco Bonds MD [address] [facility] [place] [address] PhysicianHematology/Yxipunse47/10/22 Gerardo Mckinnon, ANTITANK ASSAULT GUNNER.MANAGER TALENT ACQUISITION [address] [facility] [place] [address] Nurse PractitionerHematology/Wnasqboi29/10/22 Jah Whitehead, RN [address] [facility] [place] [address] Specialty Care CoordinatorHematology/Rmackvoj89/10/22 Toribio Michaud MD [address] [facility] [place] [address] PhysicianRadiation Jtlplyar41/10/22Team MemberRelationshipSpecialtyStart DateEnd Sondra Liu MD PCP - GeneralFamily Medicine08/17/13 Paco Bonds MD [address] [facility] [place] [address] PhysicianHematology/Dkyqkmla21/10/22 Gerardo cMkinnon, ANTITANK ASSAULT GUNNER.MANAGER TALENT ACQUISITION [address] [facility] [place] [address] Nurse PractitionerHematology/Luiouwvm15/10/22 Jah Whitehead, BLAIR [address] [facility] [place] [address] Specialty Care CoordinatorHematology/Xwwcrklq31/10/22 Toribio Michaud MD [address] [facility] [place] [address] PhysicianRadiation Hxflaqrd51/10/22Te MemberRelationshipSpecialtyStart DateEnd Sondra Liu MD [facility] Paco Bonds MD [address] [facility] [place] [address] PhysicianHematology/Rgfyqcyw55/10/22 Gerardo Mckinnon, ANTITANK ASSAULT GUNNER.MANAGER TALENT ACQUISITION [address] [facility] [place] [address] Nurse PractitionerHematology/Gnckhnco95/10/22 Jah Whitehead, BLAIR [address] [place] [address] Specialty Care CoordinatorHematology/Zdgfzusq68/10/22 Toribio Michaud MD [address] [place] [address] PhysicianRadiation Zgzxpyuc35/10/22Team MemberRelationshipSpecialtyStart DateEnd Date Sonrda Liu MD PCP - GeneralFapaly Medicine08/17/13 Paco Bonds MD [address] [place] [address] PhysicianHematology/Hvjnvdmv93/10/22 Gerardo Mckinnon, ANTITANK ASSAULT GUNNER.MANAGER TALENT ACQUISITION [address] [place] [address] Nurse PractitionerHematology/Pxcwvbjl42/10/22 Toribio Michaud MD [address] [place] [address] PhysicianRadiation Qaykmxyg38/10/22Team MemberRelationshipSpecialtyStart DateEnd Date Sondra Liu MD PCP - GeneralFamily Medicine08/17/13 Paco Bonds MD [address] [place] [address] PhysicianHematology/Roriasju27/10/22 Gerardo Mckinnon, ANTITANK ASSAULT GUNNER.MANAGER TALENT ACQUISITION [address] [place] [address] Nurse PractitionerHematology/Wqzhnpto02/10/22 Toribio Michaud MD [address] [place] [address] PhysicianRadiation Fpxdxxdx10/10/22Team MemberRelationshipSpecialtyStart DateEnd Sondra Liu MD PCP - [facility]08/17/13 Paco Bonds MD [address] [place] [address] PhysicianHematology/Hikfryvb55/10/22 Gerardo Mckinnon, ANTITANK ASSAULT GUNNER.MANAGER TALENT ACQUISITION [address] [place] [address] Nurse PractitionerHematology/Aixhimhm64/10/22 Toribio Michaud MD [address] [place] [address] PhysicianRadiation Tfdetyol49/10/22Te MemberRelationshipSpecialtyStart DateEnd Sondra Liu MD PCP - [facility]08/17/13 Paco Bonds MD [address] [place] [address] PhysicianHematology/Slbvfkwk22/10/22 Gerardo Mckinnon, ANTITANK ASSAULT GUNNER.MANAGER TALENT ACQUISITION [address] [place] [address] Nurse PractitionerHematology/Hrfxwlwn10/10/22 Toribio Michaud MD [address] [place] [address] PhysicianRadiation Iggwgoes80/10/22Te MemberRelationshipSpecialtyStart DateEnd Sondra Liu MD PCP - [facility]08/17/13 Paco Bonds MD [address] [place] [address] PhysicianHematology/Nehjeufj90/10/22 Gerardo Mckinnon, ANTITANK ASSAULT GUNNER.MANAGER TALENT ACQUISITION [address] [place] [address] Nurse PractitionerHematology/Mviveovw81/10/22 Toribio Michaud MD [address] [place] [address] PhysicianRadiation Okgrvwoi20/10/22Te MemberRelationshipSpecialtyStart DateEnd Date Sondra Liu MD PCP - [facility]08/17/13 Paco Bonds MD [address] [place] [address] PhysicianHematology/Vcdlwwfd10/10/22 Gerardo Mckinnon, ANTITANK ASSAULT GUNNER.MANAGER TALENT ACQUISITION [address] [place] [address] Nurse PractitionerHematology/Zhkaxfoy81/10/22 Toribio Michaud MD [address] [place] [address] PhysicianRadiation Oktpkuas74/10/22Te MemberRelationshipSpecialtyStart DateEnd Date Sondra Liu MD PCP - [facility]08/17/13 Paco Bonds MD [address] [place] [address] PhysicianHematology/Sxutgmph01/10/22 Gerardo Mckinnon, ANTITANK ASSAULT GUNNER.MANAGER TALENT ACQUISITION [address] [place] [address] Nurse PractitionerHematology/Mimfekkf65/10/22 Toribio Michaud MD [address] [place] [address] PhysicianRadiation Hrmaxwgu72/10/22Te MemberRelationshipSpecialtyStart DateEnd Date Sondra Liu MD PCP - [facility]08/17/13 Paco Bonds MD [address] [place] [address] PhysicianHematology/Qmlrdalh32/10/22 Gerardo Mckinnon, ANTITANK ASSAULT GUNNER.MANAGER TALENT ACQUISITION [address] [place] [address] Nurse PractitionerHematology/Zxdzcyqf81/10/22 Toribio Michaud MD [address] [place] [address] PhysicianRadiation Keeatwsl96/10/22Team MemberRelationshipSpecialtyStart DateEnd Date Sondra Liu MD [facility] - [facility]/17/13 Paco Bonds MD [address] [place] [address] PhysicianHematology/Tgrkmicl97/10/22 Gerardo Mckinnon, ANTITANK ASSAULT GUNNER.MANAGER TALENT ACQUISITION [address] [place] [address] Nurse PractitionerHematology/Lirpuugi20/10/22 Jah Whitehead, RN [address] [place] [address] Specialty Care CoordinatorHematology/Rcdcwsro68/10/2211 Toribio Michaud MD [address] [place] [address] PhysicianRadiation Ofnflmrq90/10/22Te MemberRelationshipSpecialtyStart DateEnd Date Sondra Liu MD [facility] - [facility]08/17/13 Paco Bonds MD [address] [place] [address] PhysicianHematology/Mwflhzcq41/10/22 Gerardo Mckinnon, ANTITANK ASSAULT GUNNER.MANAGER TALENT ACQUISITION [address] [place] [address] Nurse PractitionerHematology/Fijlyatf30/10/22 aJh Whitehead, RN [address] [place] [address] Specialty Care CoordinatorHematology/Zgnsapat05/10/2211 Toribio Michaud MD [address] [facility] [place] [address] PhysicianRadiation Mrlrkxwt25/10/22Team MemberRelationshipSpecialtyStart DateEnd Date Sondra Liu MD PCP - GeneralFamily Medicine08/17/13Team MemberRelationshipSpecialtyStart DateEnd Date Sondra Liu MD [address] [place] [id number] PCP - GeneralFamily Medicine01/06/24Team MemberRelationshipSpecialtyStart DateEnd Date Sondra Liu MD PCP - GeneralFamily Medicine08/17/13 Paco Bonds MD [address] [place] [address] PhysicianHematology/Yqwokala84/10/22 Gerardo Mckinnon APRN.CNP [address] [place] [address] Nurse PractitionerHematology/Pengmogj30/10/22 Toribio Michaud MD [address] [facility] [place] [address] PhysicianRadiation Jetyncqn40/10/22Team MemberRelationshipSpecialtyStart End Date Sondra Liu MD PCP - GeneralFamily Medicine08/17/13 Paco Bonds MD [address] [place] [address] PhysicianHematology/Lnpiqqqp94/10/22 Gerardo Mckinnon, [employer]NER.MANAGER [employer] [address] [place] [address] Nurse PractitionerHematology/Oyatqpbh92/10/22 Toribio Michaud MD [address] [place] [address] PhysicianRadiation Gmysgzsw46/10/22Team MemberRelationshipSpecialtyStart DateEnd Sondra Liu MD PCP - Generalmily Medicine08/17/13 Paco Bonds MD [address] [facility] [place] [address] PhysicianHematology/Woxjgxib20/10/22 Gerardo Mckinnon, [employer]TIT[employer] ASSAULT GUNNER.MANAGER [employer]ITION [address] [facility] [place] [address] Nurse PractitionerHematology/Ybwmdebg08/10/22 Toribio Michaud MD [address] [facility] [place] [address] PhysicianRadiation Gwauudli67/10/22Team MemberRelationshipSpecialtyStart DateEnd Date Sondra Liu MD [address] [place] [facility] [place] [address] PCP - GeneralFamily Medicine01/06/24Team MemberRelationshipSpecialtyStart DateEnd Date Sondra Liu MD [address] [place] [id number] PCP - GeneralWashington [facility] And Clinicsly Medicine01/06/24 Source Comments (unrecognize d section and content) In the event this informatio n is protected by the Federal Confidentiality of Alcohol and Drug Abuse Patient Records regulations: The Federal rules restrict any use of the information to criminally investigate or prosecute any alcohol or drug abuse patient.[facility] HospitalIn the event this information is protected by the Federal Confidentiality of Alcohol and Drug Abuse Patient Records regulations: The Federal rules restrict any use of the information to criminally investigate or prosecute any alcohol or drug abuse patient.[facility] HospitalIn the event this information is protected by the Federal Confidentiality of Alcohol and Drug Abuse Patient Records regulations: The Federal rules restrict any use of the information to criminally investigate or prosecute any alcohol or drug abuse patient.[facility] HospitalIn the event this information is protected by the Federal Confidentiality of Alcohol and Drug Abuse Patient Records regulations: The Federal rules restrict any use of the information to criminally investigate or prosecute any alcohol or drug abuse patient.[facility] HospitalIn the event this information is protected by the Federal Confidentiality of Alcohol and Drug Abuse Patient Records regulations: The Federal rules restrict any use of the information to criminally investigate or prosecute any alcohol or drug abuse patient.[facility] HospitalIn the event this information is protected by the Federal Confidentiality of Alcohol and Drug Abuse Patient Records regulations: The Federal rules restrict any use of the information to criminally investigate or prosecute any alcohol or drug abuse patient.[facility] HospitalIn the event this information is protected by the Federal Confidentiality of Alcohol and Drug Abuse Patient Records regulations: The Federal rules restrict any use of the information to criminally investigate or prosecute any alcohol or drug abuse patient.[facility] HospitalIn the event this information is protected by the Federal Confidentiality of Alcohol and Drug Abuse Patient Records regulations: The Federal rules restrict any use of the information to criminally investigate or prosecute any alcohol or drug abuse patient.[facility] HospitalIn the event this information is protected by the Federal Confidentiality of Alcohol and Drug Abuse Patient Records regulations: The Federal rules restrict any use of the information to criminally investigate or prosecute any alcohol or drug abuse patient.[facility] HospitalIn the event this information is protected by the Federal Confidentiality of Alcohol and Drug Abuse Patient Records regulations: The Federal rules restrict any use of the information to criminally investigate or prosecute any alcohol or drug abuse patient.[facility] HospitalIn the event this information is protected by the Federal Confidentiality of Alcohol and Drug Abuse Patient Records regulations: The Federal rules restrict any use of the information to criminally investigate or prosecute any alcohol or drug abuse patient.[facility] HospitalIn the event this information is protected by the Federal Confidentiality of Alcohol and Drug Abuse Patient Records regulations: The Federal rules restrict any use of the information to criminally investigate or prosecute any alcohol or drug abuse patient.[facility] HospitalIn the event this information is protected by the Federal Confidentiality of Alcohol and Drug Abuse Patient Records regulations: The Federal rules restrict any use of the information to criminally investigate or prosecute any alcohol or drug abuse patient.[facility] HospitalIn the event this information is protected by the Federal Confidentiality of Alcohol and Drug Abuse Patient Records regulations: The Federal rules restrict any use of the information to criminally investigate or prosecute any alcohol or drug abuse patient.[facility] HospitalIn the event this information is protected by the Federal Confidentiality of Alcohol and Drug Abuse Patient Records regulations: The Federal rules restrict any use of the information to criminally investigate or prosecute any alcohol or drug abuse patient.[facility] HospitalIn the event this information is protected by the Federal Confidentiality of Alcohol and Drug Abuse Patient Records regulations: The Federal rules restrict any use of the information to criminally investigate or prosecute any alcohol or drug abuse patient.[facility] HospitalIn the event this information is protected by the Federal Confidentiality of Alcohol and Drug Abuse Patient Records regulations: The Federal rules restrict any use of the information to criminally investigate or prosecute any alcohol or drug abuse patient.[facility] HospitalIn the event this information is protected by the Federal Confidentiality of Alcohol and Drug Abuse Patient Records regulations: The Federal rules restrict any use of the information to criminally investigate or prosecute any alcohol or drug abuse patient.[facility] HospitalIn the event this information is protected by the Federal Confidentiality of Alcohol and Drug Abuse Patient Records regulations: The Federal rules restrict any use of the information to criminally investigate or prosecute any alcohol or drug abuse patient.[facility] HospitalIn the event this information is protected by the Federal Confidentiality of Alcohol and Drug Abuse Patient Records regulations: The Federal rules restrict any use of the information to criminally investigate or prosecute any alcohol or drug abuse patient.[facility] HospitalIn the event this information is protected by the Federal Confidentiality of Alcohol and Drug Abuse Patient Records regulations: The Federal rules restrict any use of the information to criminally investigate or prosecute any alcohol or drug abuse patient.[facility] HospitalIn the event this information is protected by the Federal Confidentiality of Alcohol and Drug Abuse Patient Records regulations: The Federal rules restrict any use of the information to criminally investigate or prosecute any alcohol or drug abuse patient.[facility] HospitalIn the event this information is protected by the Federal Confidentiality of Alcohol and Drug Abuse Patient Records regulations: The Federal rules restrict any use of the information to criminally investigate or prosecute any alcohol or drug abuse patient.[facility] HospitalIn the event this information is protected by the Federal Confidentiality of Alcohol and Drug Abuse Patient Records regulations: The Federal rules restrict any use of the information to criminally investigate or prosecute any alcohol or drug abuse patient.[facility] HospitalIn the event this information is protected by the Federal Confidentiality of Alcohol and Drug Abuse Patient Records regulations: The Federal rules restrict any use of the information to criminally investigate or prosecute any alcohol or drug abuse patient.[facility] HospitalIn the event this information is protected by the Federal Confidentiality of Alcohol and Drug Abuse Patient Records regulations: The Federal rules restrict any use of the information to criminally investigate or prosecute any alcohol or drug abuse patient.[facility] HospitalIn the event this information is protected by the Federal Confidentiality of Alcohol and Drug Abuse Patient Records regulations: The Federal rules restrict any use of the information to criminally investigate or prosecute any alcohol or drug abuse patient.[facility] HospitalIn the event this information is protected by the Federal Confidentiality of Alcohol and Drug Abuse Patient Records regulations: The Federal rules restrict any use of the information to criminally investigate or prosecute any alcohol or drug abuse patient.[facility] HospitalIn the event this information is protected by the Federal Confidentiality of Alcohol and Drug Abuse Patient Records regulations: The Federal rules restrict any use of the information to criminally investigate or prosecute any alcohol or drug abuse patient.[facility] HospitalIn the event this information is protected by the Federal Confidentiality of Alcohol and Drug Abuse Patient Records regulations: The Federal rules restrict any use of the information to criminally investigate or prosecute any alcohol or drug abuse patient.[facility] HospitalIn the event this information is protected by the Federal Confidentiality of Alcohol and Drug Abuse Patient Records regulations: The Federal rules restrict any use of the information to criminally investigate or prosecute any alcohol or drug abuse patient.[facility] HospitalIn the event this information is protected by the Federal Confidentiality of Alcohol and Drug Abuse Patient Records regulations: The Federal rules restrict any use of the information to criminally investigate or prosecute any alcohol or drug abuse patient.[facility] HospitalIn the event this information is protected by the Federal Confidentiality of Alcohol and Drug Abuse Patient Records regulations: The Federal rules restrict any use of the information to criminally investigate or prosecute any alcohol or drug abuse patient.[facility] HospitalIn the event this information is protected by the Federal Confidentiality of Alcohol and Drug Abuse Patient Records regulations: The Federal rules restrict any use of the information to criminally investigate or prosecute any alcohol or drug abuse patient.[facility] HospitalIn the event this information is protected by the Federal Confidentiality of Alcohol and Drug Abuse Patient Records regulations: The Federal rules restrict any use of the information to criminally investigate or prosecute any alcohol or drug abuse patient.[facility] HospitalIn the event this information is protected by the Federal Confidentiality of Alcohol and Drug Abuse Patient Records regulations: The Federal rules restrict any use of the information to criminally investigate or prosecute any alcohol or drug abuse patient.[facility] HospitalIn the event this information is protected by the Federal Confidentiality of Alcohol and Drug Abuse Patient Records regulations: The Federal rules restrict any use of the information to criminally investigate or prosecute any alcohol or drug abuse patient.[facility] HospitalIn the event this information is protected by the Federal Confidentiality of Alcohol and Drug Abuse Patient Records regulations: The Federal rules restrict any use of the information to criminally investigate or prosecute any alcohol or drug abuse patient.[facility] HospitalIn the event this information is protected by the Federal Confidentiality of Alcohol and Drug Abuse Patient Records regulations: The Federal rules restrict any use of the information to criminally investigate or prosecute any alcohol or drug abuse patient.[facility] HospitalIn the event this information is protected by the Federal Confidentiality of Alcohol and Drug Abuse Patient Records regulations: The Federal rules restrict any use of the information to criminally investigate or prosecute any alcohol or drug abuse patient.[facility] HospitalIn the event this information is protected by the Federal Confidentiality of Alcohol and Drug Abuse Patient Records regulations: The Federal rules restrict any use of the information to criminally investigate or prosecute any alcohol or drug abuse patient.[facility] HospitalIn the event this information is protected by the Federal Confidentiality of Alcohol and Drug Abuse Patient Records regulations: The Federal rules restrict any use of the information to criminally investigate or prosecute any alcohol or drug abuse patient.[facility] HospitalIn the event this information is protected by the Federal Confidentiality of Alcohol and Drug Abuse Patient Records regulations: The Federal rules restrict any use of the information to criminally investigate or prosecute any alcohol or drug abuse patient.[facility] HospitalIn the event this information is protected by the Federal Confidentiality of Alcohol and Drug Abuse Patient Records regulations: The Federal rules restrict any use of the information to criminally investigate or prosecute any alcohol or drug abuse patient.[facility] HospitalIn the event this information is protected by the Federal Confidentiality of Alcohol and Drug Abuse Patient Records regulations: The Federal rules restrict any use of the information to criminally investigate or prosecute any alcohol or drug abuse patient.[facility] HospitalIn the event this information is protected by the Federal Confidentiality of Alcohol and Drug Abuse Patient Records regulations: The Federal rules restrict any use of the information to criminally investigate or prosecute any alcohol or drug abuse patient.[facility] HospitalIn the event this information is protected by the Federal Confidentiality of Alcohol and Drug Abuse Patient Records regulations: The Federal rules restrict any use of the information to criminally investigate or prosecute any alcohol or drug abuse patient.[facility] HospitalIn the event this information is protected by the Federal Confidentiality of Alcohol and Drug Abuse Patient Records regulations: The Federal rules restrict any use of the information to criminally investigate or prosecute any alcohol or drug abuse patient.[facility] HospitalIn the event this information is protected by the Federal Confidentiality of Alcohol and Drug Abuse Patient Records regulations: The Federal rules restrict any use of the information to criminally investigate or prosecute any alcohol or drug abuse patient.[facility] HospitalIn the event this information is protected by the Federal Confidentiality of Alcohol and Drug Abuse Patient Records regulations: The Federal rules restrict any use of the information to criminally investigate or prosecute any alcohol or drug abuse patient.[facility] HospitalIn the event this information is protected by the Federal Confidentiality of Alcohol and Drug Abuse Patient Records regulations: The Federal rules restrict any use of the information to criminally investigate or prosecute any alcohol or drug abuse patient.[facility] HospitalIn the event this information is protected by the Federal Confidentiality of Alcohol and Drug Abuse Patient Records regulations: The Federal rules restrict any use of the information to criminally investigate or prosecute any alcohol or drug abuse patient.[facility] HospitalIn the event this information is protected by the Federal Confidentiality of Alcohol and Drug Abuse Patient Records regulations: The Federal rules restrict any use of the information to criminally investigate or prosecute any alcohol or drug abuse patient.[facility] HospitalIn the event this information is protected by the Federal Confidentiality of Alcohol and Drug Abuse Patient Records regulations: The Federal rules restrict any use of the information to criminally investigate or prosecute any alcohol or drug abuse patient.[facility] HospitalIn the event this information is protected by the Federal Confidentiality of Alcohol and Drug Abuse Patient Records regulations: The Federal rules restrict any use of the information to criminally investigate or prosecute any alcohol or drug abuse patient.[facility] HospitalIn the event this information is protected by the Federal Confidentiality of Alcohol and Drug Abuse Patient Records regulations: The Federal rules restrict any use of the information to criminally investigate or prosecute any alcohol or drug abuse patient.[facility] HospitalIn the event this information is protected by the Federal Confidentiality of Alcohol and Drug Abuse Patient Records regulations: The Federal rules restrict any use of the information to criminally investigate or prosecute any alcohol or drug abuse patient.[facility] HospitalIn the event this information is protected by the Federal Confidentiality of Alcohol and Drug Abuse Patient Records regulations: The Federal rules restrict any use of the information to criminally investigate or prosecute any alcohol or drug abuse patient.[facility] HospitalIn the event this information is protected by the Federal Confidentiality of Alcohol and Drug Abuse Patient Records regulations: The Federal rules restrict any use of the information to criminally investigate or prosecute any alcohol or drug abuse patient.[facility] HospitalIn the event this information is protected by the Federal Confidentiality of Alcohol and Drug Abuse Patient Records regulations: The Federal rules restrict any use of the information to criminally investigate or prosecute any alcohol or drug abuse patient.[facility] HospitalIn the event this information is protected by the Federal Confidentiality of Alcohol and Drug Abuse Patient Records regulations: The Federal rules restrict any use of the information to criminally investigate or prosecute any alcohol or drug abuse patient.[facility] HospitalIn the event this information is protected by the Federal Confidentiality of Alcohol and Drug Abuse Patient Records regulations: The Federal rules restrict any use of the information to criminally investigate or prosecute any alcohol or drug abuse patient.[facility] HospitalIn the event this information is protected by the Federal Confidentiality of Alcohol and Drug Abuse Patient Records regulations: The Federal rules restrict any use of the information to criminally investigate or prosecute any alcohol or drug abuse patient.[facility] HospitalIn the event this information is protected by the Federal Confidentiality of Alcohol and Drug Abuse Patient Records regulations: The Federal rules restrict any use of the information to criminally investigate or prosecute any alcohol or drug abuse patient.[facility] HospitalIn the event this information is protected by the Federal Confidentiality of Alcohol and Drug Abuse Patient Records regulations: The Federal rules restrict any use of the information to criminally investigate or prosecute any alcohol or drug abuse patient.[facility] HospitalIn the event this information is protected by the Federal Confidentiality of Alcohol and Drug Abuse Patient Records regulations: The Federal rules restrict any use of the information to criminally investigate or prosecute any alcohol or drug abuse patient.[facility] HospitalIn the event this information is protected by the Federal Confidentiality of Alcohol and Drug Abuse Patient Records regulations: The Federal rules restrict any use of the information to criminally investigate or prosecute any alcohol or drug abuse patient.[facility] HospitalIn the event this information is protected by the Federal Confidentiality of Alcohol and Drug Abuse Patient Records regulations: The Federal rules restrict any use of the information to criminally investigate or prosecute any alcohol or drug abuse patient.[facility] HospitalIn the event this information is protected by the Federal Confidentiality of Alcohol and Drug Abuse Patient Records regulations: The Federal rules restrict any use of the information to criminally investigate or prosecute any alcohol or drug abuse patient.[facility] HospitalIn the event this information is protected by the Federal Confidentiality of Alcohol and Drug Abuse Patient Records regulations: The Federal rules restrict any use of the information to criminally investigate or prosecute any alcohol or drug abuse patient.[facility] HospitalIn the event this information is protected by the Federal Confidentiality of Alcohol and Drug Abuse Patient Records regulations: The Federal rules restrict any use of the information to criminally investigate or prosecute any alcohol or drug abuse patient.[facility] HospitalIn the event this information is protected by the Federal Confidentiality of Alcohol and Drug Abuse Patient Records regulations: The Federal rules restrict any use of the information to criminally investigate or prosecute any alcohol or drug abuse patient.[facility] HospitalIn the event this information is protected by the Federal Confidentiality of Alcohol and Drug Abuse Patient Records regulations: The Federal rules restrict any use of the information to criminally investigate or prosecute any alcohol or drug abuse patient.[facility] HospitalIn the event this information is protected by the Federal Confidentiality of Alcohol and Drug Abuse Patient Records regulations: The Federal rules restrict any use of the information to criminally investigate or prosecute any alcohol or drug abuse patient.[facility] HospitalIn the event this information is protected by the Federal Confidentiality of Alcohol and Drug Abuse Patient Records regulations: The Federal rules restrict any use of the information to criminally investigate or prosecute any alcohol or drug abuse patient.[facility] HospitalIn the event this information is protected by the Federal Confidentiality of Alcohol and Drug Abuse Patient Records regulations: The Federal rules restrict any use of the information to criminally investigate or prosecute any alcohol or drug abuse patient.[facility] Reason for Visit (unrecogniz ed section and content) ReasonCommentsNew PatientConsult for rectal massReasonCommentsPatient Education ReasonOnset DateCommentsPatient EducationOpened In Error2ReasonComments Anal cancerNew patient consultSpecialtyDiagnoses / ProceduresReferred By Contact Referred To ContactOncology Diagnoses Anal cancer (HCC) Procedures CONSULT TO ONCOLOGY OFFICE/OUTPATIENT [facility] 60-[place] [address] [place] [address] Referral IDStatusReasonStart DateExpiration DateVisits RequestedVisits [id number] PCP Requested Referral [id number] / Procedures Referred By ContactReferred To ContactRadiation Oncology Diagnoses Anal cancer (HCC) Procedures RAD/ONC CONSULT OFFICE/OUTPATIENT [facility] 60-[place] [address] [place] [id number] Referral IDStatusReasonStart DateExpiration DateVisits RequestedVisits [id number] PCP Requested Referral [id number] UpdateReasonCommentsCare CoordinationAntiemeticsReasonCommentsAnal Cancer3 week follow upReasonComments Nutrition TelephoneReasonCommentsOral Anti-cancer Agent EducationCapecitabine ReasonCommentsNutrition AssessmentReasonOnset DateCommentsSimulation Request Form2ReasonCommentsLab OrdersReasonCommentsCare CoordinationMedication changeReasonOnset DateCommentsRefill Ozbllth01/06/2022ReasonCommentsCare CoordinationOral Anti-Cancer Agent Follow UpReasonCommentsanal cancerReason CommentsMedication ProblemLidocaine on back orderReasonCommentsRadiotherapy On- treatment VisitReasonCommentsMedication AuthorizationLidocaine/Hydrocortisone GelReasonCommentsArt TherapyReasonCommentsAnal cancer1 week follow upReason CommentsReferral InformationCardiologyReasonCommentsanal cancerWeekly check ReasonCommentsPhlebotomyReasonCommentsRectal CancerReasonCommentsCare CoordinationLetter RequestReasonCommentsAnal cancerFollow up after scans SpecialtyDiagnoses / ProceduresReferred By ContactReferred To Contact IMAGING Diagnoses Malignant neoplasm of anus (HCC) Procedures MRI RECTUM WO/W IVCON MRI PELVIS W/O & W/CONTRAST MATERIAL Toribio Michaud MD [address] [place] [address] [place] [address] [facility] Referral IDStatusReasonStart DateExpiration DateVisits RequestedVisits [id number] Auto-Generated Referral /[id number] Cancer1 month follow upReasonCommentsAnal cancerReasonCommentsEstablished Patient3 month follow up , anal cancer surveillanceReasonCommentsPatient QuestionReasonCommentsResultsReasonComments Anal Cancer6 month follow upReasonCommentsAppointmentReasonCommentsOrders SpecialtyDiagnoses / ProceduresReferred By ContactReferred To Contact IMAGING Diagnoses Malignant neoplasm of anus (HCC) Procedures MRI RECTUM WO/W IVCON MRI PELVIS W/O & W/CONTRAST MATERIAL Toribio Michaud MD [address] [place] [address] [place] [address] [place] [address] Referral IDStatusReasonStart DateExpiration DateVisits RequestedVisits [id number] Auto-Generated Referral [id number] / ProceduresReferred By ContactReferred To Contact IMAGING Diagnoses Malignant neoplasm of anus (HCC) Procedures MRI ABDOMEN WO/W IVCON MRI ABDOMEN W/O & W/CONTRAST MATERIAL Toribio Michaud MD [address] [place] [address] [place] [address] [place] [address] Referral IDStatusReasonStart DateExpiration DateVisits RequestedVisits [id number] Auto-Generated Referral [id number] CancerFollow upReasonCommentsFollow UpAnal cancer surveillanceReasonCommentsPost Radiation Treatment Follow UpReason CommentsEstablished Patientpresents today for evaluation of diarrhea and anal itching.ReasonCommentsRadiology NMSpecialtyDiagnoses / ProceduresReferred By ContactReferred To ContactRadiology / CT IMAGING Diagnoses Malignant neoplasm of anus (HCC) Procedures CT CHEST WO IVCON DIAGNOSTIC COMPUTED TOMOGRAPHY THORAX W/O CNTRST Toribio Michaud MD [address] [place] [address] [place] [address] Toribio Michaud MD [address] [place] [address] [place] [address] Referral IDStatusReasonStart DateExpiration DateVisits RequestedVisits [id number] Auto-Generated Referral Patient Cleared - 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 advise to proceed or did not respond /[id number] CTSpecialtyDiagnoses / Procedures Referred By ContactReferred To ContactCT IMAGING Diagnoses Anal cancer (HCC) Procedures CT CHEST W IVCON DIAGNOSTIC COMPUTED TOMOGRAPHY THORAX W/CONTRAST Paco Bonds MD [address] [place] [address] [place] [address] [place] [id number] Referral IDStatusReasonStcold spring [place] DateExpiration DateVisits RequestedVisits [id number] Auto-Generated Referral /[id number] / ProceduresReferred By ContactReferred To ContactRadiation Oncology / RADIATION ONCOLOGY Diagnoses Malignant neoplasm of anus, unspecified IMRT 28 FX Plus sim Procedures SIMULATION CHITRA SIM REQ INCOMPLETE IMRT 28 FX Plus sim Toribio Michaud MD [address] [place] [address] [place] [address] Toribio Michaud MD [address] [place] [address] [place] [address] Referral IDStatusReasonStart DateExpiration DateVisits RequestedVisits [id number]/14/202212/[id number] / Procedures Referred By ContactReferred To ContactCT IMAGING Diagnoses Anal cancer (HCC) Procedures CT CHEST W IVCON DIAGNOSTIC COMPUTED TOMOGRAPHY THORAX W/[place] [address] [facility] [address] [place] [address] [address] [facility] [place] [address] Referral IDStatusReasonStart DateExpiration DateVisits RequestedVisits [id number] Auto-Generated Referral [id number] / ProceduresReferred By ContactReferred To ContactCT IMAGING Diagnoses Malignant neoplasm of rectum (HCC) Procedures CT CHEST W IVCON DIAGNOSTIC COMPUTED TOMOGRAPHY THORAX W/CONTRAST Toribio Michaud MD [address] [place] [address] [place] [address] Phone: tel: fax: [facility] [place] [address] Referral IDStatusReasonStart DateExpiration DateVisits RequestedVisits [id number] Auto-Generated Referral [id number] cancerReasonCommentsCancer Surveillanceanal ReasonCommentsWell Women Visit INFORMATION SOURCE (unrecogn ized section and content) DATE CREATED AUTHOR 05/06/2022 [facility] DATE CREATED AUTHOR AUTHOR'S ORGANIZ ATION 07/15/2022 [facility] DATE CREATED AUTHOR AUTHOR'S ORGANIZ ATION 09/05/2022 [facility] DATE CREATED AUTHOR AUTHOR'S ORGANIZ ATION 10/16/2022 [facility] DATE CREATED AUTHOR AUTHOR'S ORGANIZ ATION 10/27/2024 [facility] DATE CREATED AUTHOR AUTHOR'S ORGANIZ ATION 01/11/2025 [facility] DATE CREATED AUTHOR AUTHOR'S ORGANIZ ATION 04/24/2025 [facility] FOR RECORDS PERTAINING TO PATIENTS WHO [...] BE BASED ON THE PRIMARY CLINICAL RECORDS. [facility]. provides no warranty or guarantee of the accuracy or completeness of information in this document.
--- NOTE | 2025-07-13 07:08 | US_ITS ---
The [address] [address] Patient Name: KIRT REYNA MRN: [id number] date: 1970 Sex: F Assigned Patient Location: [place] Current Patient Location: [place] Accession/Order Number: [id number] Exam Date: 07/13/2025 07:09 Report Date: 07/13/2025 09:38 At the request of: SONDRA LIU MD Procedure: US abdomen complete COMPLETE ABDOMINAL ULTRASOUND CLINICAL HISTORY: Right Upper Quadrant Abdominal Pain COMPARISON: None The gallbladder is physiologically distended without shadowing calculi, wall thickening or pericholecystic fluid. No intrahepatic biliary dilatation is evident. The common duct is mildly prominent measuring 7 - 8 mm. No filling defects are identified within the imaged segment. The liver is normal in echogenicity. No intrahepatic masses are seen. There is appropriate hepatopetal flow within the main portal vein. The pancreas shows no significant sonographic abnormality. The right kidney measures 11.1 cm and the left 9.2 cm in craniocaudal dimension. No echogenic shadowing calculi, renal mass lesions or hydronephrosis are identified. The spleen measures 8.5 cm in craniocaudal dimension and demonstrates normal echogenicity. The IVC is patent. No aortic aneurysm is seen. US/US abdomen complete IMPRESSION: COMMON DUCT PROMINENCE OF UNKNOWN ETIOLOGY. OTHERWISE NEGATIVE ULTRASOUND OF THE ABDOMEN. Impression dictated by: Shannen Padgett M.D. 07/13/2025 9:38 AM Dictation Location: [place] [address] Electronically authenticated by: [id number] Y Date: 07/13/2025 09:38
== END 2025-07-13 07:05 | disposition home or self-care (01) ==
LOC: US 07:04
PROVIDERS: PCP Family Medicine; Visit Provider Family Medicine
DX: R10.11 Right upper quadrant pain (principal)
CPT/HCPCS: 76700